=== PATIENT | male | born 1955 | race Caucasian/White ===

== ENCOUNTER 2022-02-15 07:55 | Outpatient (CLI) | payer MEDICARE ==
[2022-02-15 11:38] LABS: African American GFR (CKD) 78.9 (60.0-200.0); Anion Gap 9.8 mmol/L (10.00-18.00); Blood Urea Nitrogen 27.1 mg/dL (9.0-27.0); Carbon Dioxide 28.1 mmol/L (20.0-27.5); Non-African American GFR(CKD) 68.1 (60.0-200.0); Potassium 5.2 mmol/L (3.5-5.5)
[2022-02-15 12:25] LABS: HCT 55.3 % (39.6-50.0); HGB 17.8 g/dL (13.0-17.0); MCH 28.1 pg (27.0-32.0); MCHC 32.2 g/dL (32.0-37.0); MCV 87.2 fL (80.0-97.0); Mean Platelet Volume 10.8 fL (9.5-12.2); NRBC Per 100 WBC 0 /100 WBCS (0.0-0.0); Platelet Count 296 X 10*3/uL (140-440); RBC 6.34 X 10*6/uL (4.40-5.60); RDW 16.9 % (11.5-14.5); WBC 10.34 X 10*3/uL (4.50-10.00)
== END 2022-02-15 08:10 | disposition home or self-care (01) ==
LOC: LABPAT 07:55
PROVIDERS: ATTEND Internal Medicine Clinical Cardiac Electrophysiology
DX: Z01.812 Encounter for preprocedural laboratory examination (principal); I42.0 Dilated cardiomyopathy; I48.19 Other persistent atrial fibrillation
CPT/HCPCS: 80051; 82565; 84520; 85027

== ENCOUNTER 2022-02-15 08:14 | Day surgery (SDC) | payer MEDICARE ==
[~2022-02-15 08:14] MED LIST: LACTATED RINGERS 1,000 ML IV SCH; SODIUM CHLORIDE 0.9% 1,000 ML IV SCH
[2022-02-15 08:58] VITALS: RESP 16; TEMP 98.7
[2022-02-15 09:17] LABS: African American GFR (CKD) >90 (>60 ml/min/1.73 sqM); Anion Gap 12 mmol/L; Blood Urea Nitrogen 28 mg/dL (9-20); Carbon Dioxide 24 mmol/L (22-30); Chloride 103 mmol/L (98-107); Glucose 117 mg/dL (74-99); Non-African American GFR(CKD) 89 (>60 ml/min/1.73 sqM); Potassium 4.7 mmol/L (3.5-5.1); Sodium 139 mmol/L (137-145)
[2022-02-15] MEDS ORDERED: LIDOCAINE 2% INJ 20 MG/ML (2 ML VIAL) ONE (09:47)
[2022-02-15] MEDS ORDERED: PROPOFOL 10 MG/ML 20 ML VIAL IV ONE (09:47)
--- NOTE | 2022-02-15 10:20 | P.EPPROC ---
- EP Procedure Note Electrophysiology Procedure Note: Diagnosis Persistent atrial fibrillation with RVR symptoms of shortness of breath Cardio myopathy Procedure Electrical cardioversion Details Successful electrical cardioversion at 200 J in the AP configuration Distorts sinus rhythm successfully heart rate 70-80 beats a minute Follow-up 12-lead EKG shows Plan Continue losartan 100 mg daily Continue ELIQUIS 5 g twice daily Continue Aldactone Follow-up with Dr. Bliss/Orin Mcclellan in 3-4 weeks
[2022-02-15 19:30] VITALS: BP 124/61; PULSE 87
== END 2022-02-15 11:14 | disposition home or self-care (01) ==
LOC: CATHCVL 08:14
PROVIDERS: ATTEND Internal Medicine Clinical Cardiac Electrophysiology
DX: I48.19 Other persistent atrial fibrillation (principal); I42.9 Cardiomyopathy, unspecified
CPT/HCPCS: 92960; 80048; J2704; J2001

== ENCOUNTER 2022-05-12 08:00 | Day surgery (SDC) | payer MEDICARE ==
[2022-05-12] MEDS: SODIUM CHLORIDE 0.9% 1,000 ML IV SCH (08:35)
[2022-05-12] MEDS ORDERED: HEPARIN SODIUM,PORCINE 10,000 UNIT/ML 1 ML VIAL ONE (09:52)
[2022-05-12] MEDS ORDERED: MIDAZOLAM 2 MG/2 ML VIAL ONE (09:52)
[2022-05-12] MEDS ORDERED: fentaNYL (PF) 50 MCG/ML 2 ML AMP ONE (09:52)
[2022-05-12] MEDS ORDERED: PROPOFOL 10 MG/ML 20 ML VIAL IV ONE (09:52)
[2022-05-12] MEDS ORDERED: PHENYLEPHRINE-0.9% NACL SYG 1,000 MCG/10 ML SYRINGE ONE (09:52)
[2022-05-12] MEDS ORDERED: LIDOCAINE 2% INJ 20 MG/ML (2 ML VIAL) ONE (09:52)
[2022-05-12] MEDS ORDERED: SUCCINYLCHOLINE CHLORIDE 200 MG/10 ML VIAL IV ONE (09:52)
[2022-05-12] MEDS ORDERED: HEPARIN SOD,PORK IN 0.45% NACL 25,000 UNIT in 0.45% NACL 1 250ML.BAG IV ONE (10:30)
[2022-05-12] MEDS ORDERED: LIDOCAINE 1% INJ 10MG/ML (30 ML VIAL-PF) SQ ONE (10:46)
[2022-05-12] MEDS ORDERED: IOPAMIDOL-370 100ML BTL INJ ONE (12:38)
[2022-05-12] MEDS ORDERED: ACETAMINOPHEN TAB 325 MG TAB PO PRN (14:11)
--- NOTE | 2022-05-12 14:27 | P.HPCAR ---
History of Present Illness This is Dr. Bliss dictating an H/P on this patient The patient was interviewed and examined IMPRESSION / ASSESSMENT: Persistent atrial fibrillation Reduced LV systolic function secondary to atrial fibrillation, left ventricular ejection fraction 4745% History of atrial flutter Hypertension PLAN: Proceed with A. fib ablation Continue antihypertensive therapy Continue anticoagulation Reassess LV function in 6-8 weeks after ablation HPI Patient complaining of shortness of breath and heart failure symptoms while in atrial fibrillation. When he was cardioverted to sinus rhythm he felt a lot better with improved energy level He is now back in atrial fibrillation He has a history of hypertension and is to start her on amlodipine He denies any orthopnea PND chest discomfort dizziness presyncope ROS: No fever chills or rigors, no cough, phlegm or expectoration, no nausea, vomiting or diarrhea, no hematuria, dysuria, no musculoskeletal complaints, no strokes or seizures, no skin lesions. EXAMINATION: Pulse rate in the 60s and 70s afebrile Blood pressure 100 and programming was 62 mmHg Breath sounds are clear no rhonchi no crackles No JVD Heart sounds are irregular no murmurs No lower extremity edema REVIEW OF LABS, ECG & MEDICAL DATA TSH normal at 0.9 Medication list includes aspirin ELIQUIS losartan and spironolactone and amlodipine Physical Exam Vitals: Vital Signs Temp Pulse Resp BP Pulse Ox 05/12/22 13:57 69 16 112/62 93 L 05/12/22 13:42 68 16 110/60 93 L 05/12/22 13:27 67 16 113/60 95 05/12/22 13:12 97.1 F L 62 16 119/58 95 05/12/22 08:30 97.4 F L 82 16 127/75 94 L Intake and Output 05/11/22 05/12/22 05/12/22 22:59 06:59 14:59 Intake Total 728 Balance 728 Intake: IV 728 Other: Weight 109.9 kg Past Medical History Past Medical History: GERD/Reflux, Hypertension Additional Past Medical History / Comment(s): cardiac hx per Dr Bliss, seasonal allergies. Pt is poor historian and cannot hear well on phone interview. pt states he has been told he has mild emphysema. pt states he was recently put on antibiotics and steroids. History of Any Multi-Drug Resistant Organisms: None Reported Past Surgical History: No Surgical Hx Reported Past Anesthesia/Blood Transfusion Reactions: No Reported Reaction Smoking Status: Former smoker - Past Family History Father Additional Family Medical History / Comment(s): enlarged heart Mother Additional Family Medical History / Comment(s): skipped heart beat Physical Examination Vital Signs Temp Pulse Resp BP Pulse Ox 05/12/22 13:57 69 16 112/62 93 L 05/12/22 13:42 68 16 110/60 93 L 05/12/22 13:27 67 16 113/60 95 05/12/22 13:12 97.1 F L 62 16 119/58 95 05/12/22 08:30 97.4 F L 82 16 127/75 94 L Intake and Output 05/11/22 05/12/22 05/12/22 22:59 06:59 14:59 Intake Total 728 Balance 728 Intake: IV 728 Other: Weight 109.9 kg Results Current Medications Generic Name Dose Route Start Last Admin Trade Name Freq PRN Reason Stop Dose Admin Acetaminophen 650 mg 05/12/22 14:11 Acetaminophen Tab 325 Mg Tab PO Q6HR PRN Mild Pain (Scale 1 to 3) Amlodipine Besylate 2.5 mg 05/13/22 09:00 Amlodipine 2.5 Mg Tab PO DAILY JACQUES Apixaban 5 mg 05/12/22 21:00 Apixaban 5 Mg Tab PO BID [facility] Protocol Aspirin 81 mg 05/13/22 09:00 Aspirin 81 Mg PO DAILY JACQUES Sodium Chloride 1,000 mls @ 20 mls/hr 05/12/22 05:54 05/12/22 08:35 Saline 0.9% IV 06/11/22 05:55 700 mls .Q24H JACQUES Administration Acetaminophen 1,000 mg/ IV 100 mls @ 400 mls/hr 05/12/22 15:00 Solution IVPB 05/12/22 15:14 ONCE ONE Losartan Potassium 100 mg 05/13/22 09:00 Losartan 50 Mg Tab PO DAILY JACQUES Pantoprazole Sodium 40 mg 05/13/22 07:30 Pantoprazole 40 Mg Tablet PO AC-BRKFST JACQUES Sodium Chloride 12 ml 05/12/22 14:11 Sodium Chloride 0.9% Flush 10 Ml Syringe IV Q12HR PRN Line Flush Spironolactone 25 mg 05/12/22 21:00 Spironolactone 25 Mg Tab PO HS JACQUES Intake and Output 05/11/22 05/12/22 05/12/22 22:59 06:59 14:59 Intake Total 728 Balance 728 Intake: IV 728 Other: Weight 109.9 kg Patient Weight 05/13/22 06:59 Weight 109.9 kg
--- NOTE | 2022-05-12 14:33 | P.EPPROC ---
- EP Procedure Note Electrophysiology Procedure Note: PROCEDURE A. fib ablation/PVI plus linear ablation of the left atrial roof DIAGNOSIS Persistent Atrial fibrillation, symptomatic, refractory to therapy Associated with cardiomyopathy RESULT No left atrial appendage mass seen on intracardiac echo Successful A. fib ablation/pulmonary vein isolation of all veins using cryo- ablation Complete entrance block in all 4 veins confirmed No evidence for phrenic nerve injury Linear ablation along the left atrial roof Isolation of the marie both on the left side and on the right side Esophageal deflection YES / NO Electrical cardioversion with a synchronized shock across the chest YES / NO PROCEDURE DETAILS Patient was brought to the EP lab in a fasting state after obtaining written informed consent. Procedure performed under general anesthesia Esophagus was intubated. Esophageal temperature monitoring with circa catheter. Esophageal deflection performed with an endoscope to avoid hypothermia of the esophagus. Esophagus was deflected away from the balloon at least half centimeters to avoid thermal injury After initial muscle relaxant use, muscle relaxants were not given thereafter in order to assess phrenic nerve during procedure. Patient prepped and draped as per protocol Cryo ablation-set up with standard preparation of the cryoablation tools done. Femoral Venous access obtained on the right and left groins and sheaths placed Diagnostic catheters for the high right atrium, phrenic nerve stimulation and pacing, His bundle, coronary sinus placed Intracardiac echo catheter placed. Long sheath placed in the right atrium Left and right transseptal catheterization performed under intracardiac echo guidance. Intravenous heparin with aCT above 300 Later, catheter positioning and balloon positioning in the left atrium and pulmonary veins, under intracardiac echo guidance Diagnostic EP study with coronary sinus pacing and recording Baseline measurements: QRS 80 ms, QT 373 ms AH interval 125 ms, HV interval 43 ms Transseptal catheterization performed RA pressure 13/9/11 LA pressure 23/7/40 Transseptal catheterization performed with standard sheath. The cryoablation sheath was then placed with an over the wire exchange without any acute complications. The cryoablation balloon was placed in the office of each pulmonary vein and all 4 pulmonary veins were isolated. IV dye was injected to confirm occlusion. Goal: achieve complete occlusion of the pulmonary vein, achieve -30 degrees C at 30 seconds and achieve -40 degrees C at 60 seconds and a time to effect of less than 60 seconds. If not, the balloon was repositioned to obtain this result After completion of Cryoblation with durations from 180-240 seconds, entrance block was confirmed with the Attain circular catheter in a roving fashion around the antrum of the pulmonary veins Phrenic nerve pacing was performed from the SVC, right innominate vein area and diaphragm voltage was monitored. Diaphragmatic contractions were also monitored manually for strength of contraction. Phrenic nerve stimulation was performed from within the RS PV, using the achieve catheter. Both distance as well as thresholds were measured within the RS PV This site was tagged fluoroscopically and the Balloon was positioned at least 0.5-1 cm away from this site to minimize phrenic nerve injury risk At the end of the procedure the Achieve catheter was once again used to check for entrance block Phrenic nerve stimulation was performed to confirm diaphragmatic stimulation the end of the procedure Cine fluoroscopy was performed at the very end of the procedure to confirm movement of both diaphragms with inspiration and expiration Extended procedure duration on account of a very difficult right inferior pulmonary vein isolation The right inferior pulmonary vein had an unusual anatomy and it took multiple attempts to get coag 0 position and complete vein occlusion for complete isolation Multiple attempts were made both the AP position and [place]ICA position Finally the hockey stick approach was successful when the achieve catheter was placed in the lower tributary of the right inferior pulmonary vein Linear ablation was performed in the left atrial roof from the left superior to the right superior pulmonary veins Continue was cryoablation lesions applied starting from the left side as well as from the right side for complete isolation There was a wide marie between the left superior and left inferior pulmonary veins which was separately ablated with a 2 minute cryoablation Marie on the right side between the right superior and right inferior pulmonary veins also separately ablated with a 3 minute lesion Phrenic nerve mapping performed within the right superior pulmonary vein and dry balloon maintained at least 1 cm away from the site to minimize phrenic nerve paresis At the end of the procedure the patient was extubated Venous sheaths were removed and hemostasis assured with a closure device PROCEDURES PERFORMED Diagnostic EP study CS pacing and recording Left and right transseptal catheterization Catheter the mapping of the tachycardia Intracardiac echocardiography Pulmonary vein isolation with transseptal and comprehensive EPS, [id number] Linear ablation in the left atrium along the left and right marie Left atrial roof line, +[id number] Electrical cardioversion with a synchronized shock across the chest [id number] Extended procedure duration
--- NOTE | 2022-05-12 14:40 | P.PRLE ---
RE: Blaze Douglas Dear Fani Thakur underwent in A. fib ablation with pulmonary vein isolation and linear ablation in the left atrial roof and the marie and between the pulmonary veins He underwent successful electrical cardioversion thereafter Hopefully this results in maintenance of sinus rhythm and allows for improvement of his LV function He will continue antihypertensive therapy along with anticoagulation with ELIQUIS Thank you for entrusting me with the care of the patient Warm regards Sincerely Jonah Bliss
[2022-05-12] MEDS ORDERED: ACETAMINOPHEN IV (For NPO) 1,000 MG in EMPTY BAG 1 BAG IVPB ONE (15:00)
[2022-05-12] MEDS: APIXABAN 5 MG TAB PO SCH (20:11)
[2022-05-12] MEDS ORDERED: SPIRONOLACTONE 25 MG TAB PO SCH (21:00)
[2022-05-13] MEDS: SODIUM CHLORIDE 0.9% 1,000 ML IV SCH (05:49)
[2022-05-13] MEDS ORDERED: PANTOPRAZOLE 40 MG TABLET PO SCH (07:30)
[2022-05-13 08:16] VITALS: BP 120/67; PULSE 67; RESP 16; TEMP 97.8
[2022-05-13] MEDS ORDERED: ASPIRIN 81 MG PO SCH (09:00)
[2022-05-13] MEDS ORDERED: LOSARTAN 50 MG TAB PO SCH (09:00)
[2022-05-13] MEDS ORDERED: amLODIPine 2.5 MG TAB PO SCH (09:00)
[2022-05-13] MEDS: APIXABAN 5 MG TAB PO SCH (09:13)
== END 2022-05-13 12:25 | disposition home or self-care (01) ==
LOC: CATHEP 08:00 → 6NMEDSUR 12:43 → CATHEP 05-13 12:25
PROVIDERS: ATTEND Internal Medicine Clinical Cardiac Electrophysiology
DX: I48.19 Other persistent atrial fibrillation (principal); I42.9 Cardiomyopathy, unspecified; I48.3 Typical atrial flutter; I10 Essential (primary) hypertension; Z79.01 Long term (current) use of anticoagulants; Z79.811 Long term (current) use of aromatase inhibitors; K21.9 Gastro-esophageal reflux disease without esophagitis; J43.9 Emphysema, unspecified; Z87.891 Personal history of nicotine dependence; Z82.49 Family history of ischemic heart disease and other diseases of the circulatory system; Z79.1 Long term (current) use of non-steroidal anti-inflammatories (NSAID); Z79.82 Long term (current) use of aspirin; Z79.891 Long term (current) use of opiate analgesic
CPT/HCPCS: 93656; 93657; 92960; 84443; C1894 ×2; C1769 ×4; C1760; C1730; C1759; C1893; C1733; C1766; J2250; J0330; J1644 ×2; J2001 ×2; J3010; J0131; J2370; J2704; Q9967

== ENCOUNTER → 2023-06-29 | Outpatient (CLI) | payer MEDICARE ==
[2023-06-29 10:54] LABS: Basophils # (A) 0.05 X 10*3/uL (0.00-0.10); Basophils % (A) 0.7 %; Eosinophils # (A) 0.22 X 10*3/uL (0.04-0.35); Eosinophils % (A) 2.9 %; HCT 48.9 % (39.6-50.0); Lymphocytes # (A) 1.39 X 10*3/uL (0.90-5.00); Lymphocytes % (A) 18.3 %; MCHC 32.7 g/dL (32.0-37.0); MCV 85.6 FL (80.0-97.0); Mean Platelet Volume 10.1 FL (9.5-12.2); Monocytes # (A) 0.81 X 10*3/uL (0.20-1.00); Monocytes % (A) 10.7 %; NRBC Per 100 WBC 0 X 10*3/uL (0.00-0.01); Neutrophils # (A) 5.04 X 10*3/uL (1.80-7.70); Neutrophils % (A) 66.5 %; Platelet Count 328 X 10*3/uL (140-440); RBC 5.71 X 10*6/uL (4.40-5.60); RDW 14.3 % (11.5-14.5); WBC 7.58 X 10*3/uL (4.50-10.00)
[2023-06-29 16:10] LABS: ALT 36 U/L (10-49); AST 22 U/L (14-35); Alkaline Phosphatase 87 U/L (41-126); BUN/Creat Ratio 16.45 Ratio (12.00-20.00); Blood Urea Nitrogen 18.1 mg/dL (9.0-27.0); Calcium 9.4 mg/dL (8.7-10.3); Chloride 104 mmol/L (96-109); Chol/HDL Ratio 4.34 Ratio; Globulin 2.5 g/dL (1.6-3.3); Glucose 109 mg/dL (70-110); LDL Cholesterol,Calculated 107.9 mg/dL (0.0-131.0); Magnesium 2.3 mg/dL (1.5-2.4); Potassium 4.7 mmol/L (3.5-5.5); Sodium 141 mmol/L (135-145); Total Bilirubin 0.3 mg/dL (0.3-1.2); Total Protein 6.5 g/dL (6.2-8.2)
== END | disposition home or self-care (01) ==
LOC: LABWHC1 08:08
PROVIDERS: ATTEND Nurse Practitioner Adult Health
DX: I48.19 Other persistent atrial fibrillation (principal); I42.0 Dilated cardiomyopathy; E78.5 Hyperlipidemia, unspecified
CPT/HCPCS: 36415; 80053; 80061; 83735; 84443; 85025

== ENCOUNTER → 2024-01-29 | Outpatient (CLI) | payer MEDICARE ==
[2024-01-29 15:45] LABS: Blood Urea Nitrogen 17.4 mg/dL (9.0-27.0); Carbon Dioxide 22.7 mmol/L (21.6-31.8); Chloride 108 mmol/L (96-109); Potassium 4.7 mmol/L (3.5-5.5); Sodium 141 mmol/L (135-145)
[2024-01-29 16:01] LABS: HCT 38.4 % (39.6-50.0); HGB 12.3 g/dL (13.0-17.0); MCH 28.7 pg (27.0-32.0); MCV 89.7 FL (80.0-97.0); NRBC Per 100 WBC 0 X 10*3/uL (0.00-0.01); Platelet Count 355 X 10*3/uL (140-440); RBC 4.28 X 10*6/uL (4.40-5.60); RDW 15.7 % (11.5-14.5); WBC 6.58 X 10*3/uL (4.50-10.00)
== END | disposition home or self-care (01) ==
LOC: LABPAT 10:46
PROVIDERS: ATTEND Internal Medicine Clinical Cardiac Electrophysiology
DX: Z01.812 Encounter for preprocedural laboratory examination (principal); I47.9 Paroxysmal tachycardia, unspecified
CPT/HCPCS: 80051; 82565; 84520; 85027

== ENCOUNTER 2024-02-01 06:05 | Day surgery (SDC) | payer MEDICARE ==
[2024-02-01] MEDS: SODIUM CHLORIDE 0.9% 1,000 ML IV SCH (06:51)
[2024-02-01] MEDS: IV FLUID CONTINUATION 1,000 ML IV ONE (07:12)
[2024-02-01] MEDS ORDERED: PHENYLEPHRINE-0.9% NACL SYG 1,000 MCG/10 ML SYRINGE ONE (07:57)
[2024-02-01] MEDS ORDERED: NEOSTIGMINE 1 MG/ML 10 ML VIAL ONE (07:57)
[2024-02-01] MEDS ORDERED: ETOMIDATE 2 MG/ML 10 ML VIAL ONE (07:57)
[2024-02-01] MEDS ORDERED: GLYCOPYRROLATE 0.2 MG/ML 2 ML VIAL ONE (07:57)
[2024-02-01] MEDS ORDERED: LIDOCAINE 1% INJ 10MG/ML (20 ML MDV) ONE (07:57)
[2024-02-01] MEDS ORDERED: ROCURONIUM 10 MG/ML (5 ML VIAL) IV ONE (07:57)
[2024-02-01] MEDS ORDERED: fentaNYL (PF) 50 MCG/ML 2 ML AMP ONE (07:57)
[2024-02-01] MEDS ORDERED: HEPARIN SODIUM,PORCINE 10,000 UNIT/ML 1 ML VIAL ONE (07:57)
[2024-02-01] MEDS ORDERED: PHENYLEPHRINE 10 MG/ML VIAL ONE (07:57)
[2024-02-01] MEDS ORDERED: SUCCINYLCHOLINE CHLORIDE 200 MG/10 ML VIAL IV ONE (07:57)
[2024-02-01] MEDS ORDERED: PROPOFOL 10 MG/ML 20 ML VIAL IV ONE (07:57)
[2024-02-01] MEDS ORDERED: HEPARIN SODIUM,PORCINE 5,000 UNIT/ML 1 ML VIAL ONE (07:57)
[2024-02-01 08:43] LABS: ALT 69 U/L (4-49); AST 40 U/L (17-59); African American GFR (CKD) 85 (>60 ml/min/1.73 sqM); Albumin 3.9 g/dL (3.5-5.0); Alkaline Phosphatase 78 U/L (38-126); Anion Gap 4 mmol/L; Blood Urea Nitrogen 17 mg/dL (9-20); Calcium 9.3 mg/dL (8.4-10.2); Carbon Dioxide 27 mmol/L (22-30); Chloride 110 mmol/L (98-107); Glucose 107 mg/dL (74-99); Non-African American GFR(CKD) 74 (>60 ml/min/1.73 sqM); Potassium 4.8 mmol/L (3.5-5.1); Sodium 141 mmol/L (137-145); Total Bilirubin 0.8 mg/dL (0.2-1.3)
[2024-02-01] MEDS: LIDOCAINE 1% INJ 10MG/ML (20 ML MDV) SQ ONE (08:43)
[2024-02-01] MEDS: HEPARIN SOD,PORK IN 0.45% NACL 25,000 UNIT in 0.45% NACL 1 250ML.BAG IV ONE (09:00)
[2024-02-01] MEDS: HEPARIN SODIUM (1,000 UNIT/ML) 1,000 UNIT in SODIUM CHLORIDE 0.9% 1,000 ML IRRIGATION ONE (09:13)
[2024-02-01] MEDS ORDERED: MELOXICAM 7.5 MG TAB PO PRN (11:36)
[2024-02-01] MEDS ORDERED: ACETAMINOPHEN TAB 325 MG TAB PO PRN (11:40)
--- NOTE | 2024-02-01 11:50 | P.HPCAR ---
History of Present Illness This is Dr. Bliss dictating an H/P on this patient The patient was interviewed and examined IMPRESSION / ASSESSMENT: Post A-fib ablation atrial tachycardia with RVR and symptomatic with shortness of breath History of persistent atrial fibrillation status post PVI left atrial septal ablation and left atrial roof ablation in 2022 History of dilated cardiomyopathy with normalization of LV function once sinus rhythm was restored Hypertension Normal TSH PLAN: Mapping of the left and right atria and ablation of the atrial tachycardia Continue anticoagulation HPI Patient has been very symptomatic with RVR secondary to atrial tachycardia. This is developed after almost 1 and half years following his A-fib ablation His A-fib ablation involved pulmonary vein isolation left atrial septal ablation left atrial roof ablation. The twelve-lead EKG shows upright atrial activity in the inferior leads as well as upright F waves in V1 consistent with atrial tachycardia originating from the superior part of most likely the left atrium, likely roof reentry He is short of breath. No chest discomfort no loss of consciousness Denies any fever chills expectoration ROS: No fever chills or rigors, no cough, phlegm or expectoration, no nausea, vomiting or diarrhea, no hematuria, dysuria, no musculoskeletal complaints, no strokes or seizures, no skin lesions. EXAMINATION: Blood pressure 129/72 mmHg pulse rate 90-100 beats a minute afebrile Heart sounds S1-S2 normal, irregular Lungs are clear no rhonchi no crackles No JVD No lower extremity edema REVIEW OF LABS, ECG & MEDICAL DATA Sodium 141 potassium 4.8 chloride 110 bicarb 27 Creatinine 1.0 AST and ALT are normal TSH 0.9 Physical Exam Vitals: Vital Signs Temp Pulse Resp BP Pulse Ox 02/01/24 06:57 97.0 F L 92 16 129/72 97 Intake and Output 01/31/24 02/01/24 02/01/24 22:59 06:59 14:59 Intake Total 911 Output Total 150 Balance 761 Intake: IV 911 Output: Urine 150 Other: Weight 109.1 kg Past Medical History Past Medical History: Atrial Fibrillation, GERD/Reflux, Hyperlipidemia, Hypertension Additional Past Medical History / Comment(s): cardiac hx per Dr Bliss, seasonal allergies. Pt is poor historian and cannot hear well on phone interview. pt states he has been told he has mild emphysema. pt states he was recently put on antibiotics and steroids. History of Any Multi-Drug Resistant Organisms: None Reported Past Surgical History: Heart Catheterization, Hernia Repair Past Anesthesia/Blood Transfusion Reactions: No Reported Reaction Smoking Status: Former smoker - Past Family History Father Additional Family Medical History / Comment(s): enlarged heart Mother Additional Family Medical History / Comment(s): skipped heart beat Physical Examination Vital Signs Temp Pulse Resp BP Pulse Ox 02/01/24 06:57 97.0 F L 92 16 129/72 97 Intake and Output 01/31/24 02/01/24 02/01/24 22:59 06:59 14:59 Intake Total 911 Output Total 150 Balance 761 Intake: IV 911 Output: Urine 150 Other: Weight 109.1 kg Results 02/01/24 07:01 Cardiac Enzymes 02/01/24 Range/Units 07:01 AST 40 (17-59) U/L Comprehensive Metabolic Panel 02/01/24 Range/Units 07:01 Sodium 141 (137-145) mmol/L Potassium 4.8 (3.5-5.1) mmol/L Chloride 110 H (98-107) mmol/L Carbon Dioxide 27 (22-30) mmol/L BUN 17 (9-20) mg/dL Creatinine 1.04 (0.66-1.25) mg/dL Glucose 107 H (74-99) mg/dL Calcium 9.3 (8.4-10.2) mg/dL AST 40 (17-59) U/L ALT 69 H (4-49) U/L Alkaline Phosphatase 78 (38-126) U/L Total Protein 7.0 (6.3-8.2) g/dL Albumin 3.9 (3.5-5.0) g/dL Current Medications Generic Name Dose Route Start Last Admin Trade Name Freq PRN Reason Stop Dose Admin Acetaminophen 650 mg 02/01/24 11:40 Acetaminophen Tab 325 Mg Tab PO Q6HR PRN Mild Pain (Scale 1 to 3) Amlodipine Besylate 10 mg 02/02/24 09:00 Amlodipine 10 Mg Tab PO DAILY [facility] Apixaban 5 mg 02/01/24 21:00 Apixaban 5 Mg Tab PO BID JACQUES Protocol Acetaminophen 1,000 mg/ IV 100 mls @ 400 mls/hr 02/01/24 12:00 Solution IVPB 02/01/24 12:14 ONCE ONE Losartan Potassium 100 mg 02/02/24 09:00 Losartan 50 Mg Tab PO DAILY [facility] Meloxicam 15 mg 02/01/24 11:36 Meloxicam 7.5 Mg Tab PO DAILY PRN Pain Non-Formulary Medication 75 mg 02/02/24 09:00 Metoprolol(Unk) PO DAILY [facility] Pantoprazole Sodium 40 mg 02/02/24 09:00 Pantoprazole 40 Mg Tablet PO DAILY [facility] Sodium Chloride 12 ml 02/01/24 11:40 Sodium Chloride 0.9% Flush 10 Ml Syringe IV Q12HR PRN Line Flush Intake and Output 01/31/24 02/01/24 02/01/24 22:59 06:59 14:59 Intake Total 911 Output Total 150 Balance 761 Intake: IV 911 Output: Urine 150 Other: Weight 109.1 kg Patient Weight 02/02/24 06:59 Weight 109.1 kg 02/01/24 07:01
--- NOTE | 2024-02-01 12:05 | P.EPPROC ---
- EP Procedure Note Electrophysiology Procedure Note: Diagnosis Atrial tachycardia with RVR, symptomatic Past history of A-fib ablation with PVI left atrial septal ablation left atrial roof ablation in April 2022 Tachycardia mediated cardiomyopathy Final diagnosis Counterclockwise/typical atrial flutter with inferior to superior activation of the left atrium both anterior and posterior garcia Twelve-lead EKG however shows upright F waves in the inferior leads, likely due to right atrial free wall contributing the predominant superior to inferior direction of activation, rather than the left atrium Details Patient is brought to the EP lab in a fasting state. Written informed consent was obtained prior to the procedure procedure performed under general anesthesia. Venous sheaths placed in the right and left femoral veins and the right atrium, coronary sinus, His bundle area Intracardiac echo catheter placed, Penta ray catheter and mapping and ablation cath placed Intracardiac echo revealed preserved LV systolic function, no left atrial appendage thrombus, large left atrial size Patient was seen and atrial tachycardia with a cycle length 240 ms, concentric activation in the coronary sinus poles RA pressure 10/6/8 mmHg LA pressures 22/4/12 mmHg After confirming absence of any left atrial appendage thrombus and absence of any pericardial effusion, left and right transseptal catheterization was performed under fluoroscopic and ultrasound guidance. A deflectable sheath was placed in the left atrium and a Penta ray catheter was placed. Activation and scar mapping was performed of the left atrium The pulmonary veins at an antral level and the left atrial septum were completely isolated. The left atrial roof was completely isolated anteriorly without any. The activation map was consistent with a right atrial tachycardia Therefore heparin was stopped and the catheters were then withdrawn into the right atrium. Mapping of the Penta ray catheter confirmed counterclockwise/typical atrial flutter with activation of the left atrium from the coronary sinus with inferior to superior activation of the left atrium even though the EKGs showed upright F waves in the inferior leads Entrainment mapping was then performed in the cavotricuspid isthmus and concealed entrainment was noted Intracardiac echo was used to map the right atrial isthmus. RF ablation was performed from the cavotricuspid isthmus to the IVC with termination of the tachycardia to sinus rhythm with a prolonged TX interval Following that complete line of block was made and then interrogated with differential pacing with confirmed bidirectional block Sinus cycle length 1085 ms, TX interval 230 ms, QRS 95 ms and QT interval 463 ms AH 127 ms and HV interval 37 ms All sheaths were removed and closure devices were applied to the venous punctures Patient was extubated Patient of the procedure well without any acute complications This is a long procedure since it involved mapping both activation mapping and scar mapping of the left atrium and the pulmonary veins first, confirmation of absence of left atrial tachycardia since the EKG morphology was consistent with a left atrial tachycardia from the roof of the LA. However there was no gap in the left atrial roof Right atrial mapping was performed both activation mapping as well as entrainment mapping confirmed cavotricuspid isthmus dependency of the tachycardia RF ablation was performed successfully
--- NOTE | 2024-02-01 12:14 | P.PRLE ---
RE: Blaze Douglas Dear Fani Mr. Blaze Douglas underwent mapping for atrial tachycardia. The atrial tachycardia turned out to be typical atrial flutter and he underwent successful ablation with confirmed bidirectional block. We also mapped the left atrium and his pulmonary veins, left atrial septum and left atrial roof were completely isolated and have remained so since ablation. He will continue Eliquis. I will reduce the dose of Toprol to 50 mg p.o. daily since he has a mildly prolonged ME interval My thank you
[2024-02-01] MEDS: ACETAMINOPHEN IV (For NPO) 1,000 MG in EMPTY BAG 1 BAG IVPB ONE (20:18)
[2024-02-01] MEDS: APIXABAN 5 MG TAB PO SCH (20:18)
[2024-02-01] MEDS: PANTOPRAZOLE 40 MG TABLET PO SCH (20:26)
[2024-02-02 05:52] LABS: Basophils % (A) 0 %; Eosinophils # (A) 0.1 k/uL (0-0.7); Eosinophils % (A) 1 %; HGB 12.9 gm/dL (13.0-17.5); Hypochromasia Slight; Lymphocytes # (A) 1.3 k/uL (1.0-4.8); Lymphocytes % (A) 14 %; MCH 28.3 pg (25.0-35.0); MCHC 31.5 g/dL (31.0-37.0); MCV 89.9 fL (80.0-100.0); Mean Platelet Volume 7.5; Monocytes # (A) 0.7 k/uL (0-1.0); Monocytes % (A) 8 %; Neutrophils # (A) 6.6 k/uL (1.3-7.7); Neutrophils % (A) 74 %; Platelet Count 375 k/uL (150-450); RBC 4.56 m/uL (4.30-5.90); RDW 15.1 % (11.5-15.5)
--- NOTE | 2024-02-02 07:56 | P.DS ---
Providers Attending physician: Jonah Bliss Primary care physician: [facility] Course: Patient is doing well. He is sitting comfortably in bed. He feels better he is breathing better according to him No chest pain no dizziness lightheadedness Groins of healed well no hematoma On examination blood pressure is 120/68 mmHg pulse rate in the 70s afebrile Heart sounds S1-S2 normal Breath sounds are reduced bilaterally no rhonchi no crackles Impression Post A-fib atrial tachycardia that turned out to be typical atrial flutter, counterclockwise with upright flutter waves in the inferior leads, most likely as a result of prior cryoablation of the septum from the left side resulting in the right atrial free wall contributing to the predominant/net superior-inferior vector of activation. Prior PVI, septal ablation and roof ablation were intact and quiescent. There was no gap in the roofline which was anterior in location. Pulmonary veins were completely isolated and the septum was quiescent Mildly prolonged IN interval at baseline in sinus rhythm Plan Continue anticoagulation uninterrupted for the next 4 to 6 weeks unless there is an emergency Reduce metoprolol dose to 50 mg p.o. daily, long-acting Discharge home today and follow-up in a week to 10 days Plan - Discharge Summary Discharge Rx Participant: No New Discharge Prescriptions: New RX: Metoprolol Succinate (ER) [Toprol XL] 50 mg PO DAILY #90 tab Discontinued Metoprolol(Unk) 75 mg PO DAILY No Action RX: Meloxicam [Mobic] 15 mg PO DAILY PRN PRN Reason: Pain RX: Apixaban [Eliquis] 5 mg PO BID RX: Omeprazole 40 mg PO DAILY RX: amLODIPine [Norvasc] 10 mg PO DAILY RX: Losartan Potassium 100 mg PO DAILY RX: traMADol HCL 50 mg PO Q6H PRN PRN Reason: Pain Discharge Medication List RX: Apixaban [Eliquis] 5 mg PO BID 02/15/22 [History] RX: Losartan Potassium 100 mg PO DAILY 02/15/22 [History] RX: Meloxicam [Mobic] 15 mg PO DAILY PRN 02/15/22 [History] RX: Omeprazole 40 mg PO DAILY 02/15/22 [History] RX: amLODIPine [Norvasc] 10 mg PO DAILY 05/12/22 [History] RX: traMADol HCL 50 mg PO Q6H PRN 05/12/22 [History] RX: Metoprolol Succinate (ER) [Toprol XL] 50 mg PO DAILY #90 tab 02/01/24 [Rx] Follow up Appointment(s)/Referral(s): Jonah Bliss MD [STAFF PHYSICIAN] - 1 Week Activity/Diet/Wound Care/Special Instructions: Post EP study - Ablation instructions 1. Keep access sites dry for 2 days. 2. No heavy lifting or straining for 2 days. 3. Avoid bending the hips repeatedly for 2 days. 4. You may go up and down stairs slowly Call if the following is noted 1. Bleeding, increasing swelling or pain at the access sites. 2. Increasing chest discomfort, especially upon taking a deep breath. 3. Increasing shortness of breath, at rest or with exertion. 4. Undue cough / phlegm 5. Difficulty or pain while swallowing. 6. Pain or change in color in the extremities. 7. Fever, chills, rigors. 8. Increasing headache or neurologic symptoms. 9. Dizziness, fainting, palpitations Metoprolol succinate dose reduced to 50 mg p.o. daily Continue Eliquis and all other medication
[2024-02-02 08:22] VITALS: BP 129/70; PULSE 69; RESP 18; TEMP 97.8
[2024-02-02] MEDS: amLODIPine 10 MG TAB PO SCH (08:38)
[2024-02-02] MEDS: LOSARTAN 50 MG TAB PO SCH (08:38)
[2024-02-02] MEDS ORDERED: METOPROLOL PO SCH (09:00)
[2024-02-02] MEDS ORDERED: PANTOPRAZOLE 40 MG TABLET PO SCH (09:00)
[2024-02-02] MEDS: METOPROLOL SUCCINATE (ER) 50 MG TAB.ER.24H PO STA (09:47)
== END 2024-02-02 10:24 | disposition home or self-care (01) ==
LOC: CATHEP 06:05 → 6NMEDSUR 11:20 → CATHEP 02-02 10:24
PROVIDERS: ATTEND Internal Medicine Clinical Cardiac Electrophysiology
CPT/HCPCS: 80053; 84443; 85025; 86850; 86900; 86901; 93005; 93462; 93653; 93662

== ENCOUNTER 2024-06-10 13:47 | Inpatient (IN) | payer MEDICARE ==
[2024-06-10 14:06] LABS: ABG Base Excess -0.8 mmol/L; ABG HCO3 25 mmol/L (21-25); ABG Oxygen Saturation 88.9 % (94-97); ABG PCO2 43 mmHg (35-45); ABG PH 7.36 (7.35-7.45); ABG PO2 60 mmHg (83-108); ABG TCO2 26 mmol/L (19-24); Allen Test Performed? Yes
[2024-06-10] MEDS: cefTRIAXone IN SWFI 1,000 MG/10 ML SYRINGE IVP STA ×2 (14:07→14:08)
[2024-06-10 14:20] LABS: Basophils # (A) 0.1 k/uL (0-0.2); Basophils % (A) 1 %; Eosinophils % (A) 0 %; HCT 41.5 % (39.0-53.0); HGB 13.8 gm/dL (13.0-17.5); Lymphocytes # (A) 1.2 k/uL (1.0-4.8); Lymphocytes % (A) 8 %; MCH 29.5 pg (25.0-35.0); MCHC 33.3 g/dL (31.0-37.0); MCV 88.4 fL (80.0-100.0); Mean Platelet Volume 11.6; Monocytes # (A) 0.5 k/uL (0-1.0); Monocytes % (A) 3 %; Neutrophils # (A) 13.1 k/uL (1.3-7.7); Neutrophils % (A) 85 %; Platelet Count 265 k/uL (150-450); Poikilocytosis Slight; RDW 15.4 % (11.5-15.5); WBC 15.3 k/uL (3.8-10.6)
[2024-06-10] MEDS: ALBUTEROL NEBULIZED 2.5 MG/3 ML INHALATION STA (14:23)
[2024-06-10] MEDS: IPRATROPIUM 0.5 MG/2.5 ML NEBU INHALATION STA (14:23)
[2024-06-10] MEDS: AZITHROMYCIN 500 MG in SODIUM CHLORIDE 0.9% 250 ML IVPB STA (14:28)
--- NOTE | 2024-06-10 14:29 | XR ---
EXAMINATION TYPE: XR chest 1V portable DATE OF EXAM: 06/10/2024 2:09 PM COMPARISON: None. CLINICAL INDICATION: Male, 69 years old with history of Short of breath, TECHNIQUE: XR chest 1V portable view(s) obtained. FINDINGS: The heart size is normal. The pulmonary vasculature is normal. There is a large left upper lobe consolidation. Correlate for pneumonia. Some bibasilar infiltrates a re present. Atelectasis and pneumonia could be considered. Follow up exams are recommended. IMPRESSION: 1. Left upper lobe consolidation with air bronchograms. Correlate for pneumonia. 2. Bibasilar infiltrates. Pneumonia and atelectasis to BE considered. 3. Follow up exams are recommended [facility], , 06/10/2024 2:27 PM
[2024-06-10 14:46] LABS: Influenza A Detected (Not Detectd); Influenza B Not Detected (Not Detectd); RSV Not Detected (Not Detectd)
[2024-06-10 15:13] LABS: INR 1.1 (<1.2); Partial Thromboplastin Time 24.3 sec (22.0-30.0); Prothrombin Time 11.7 sec (10.0-12.5)
--- NOTE | 2024-06-10 15:14 | ED ---
General Adult HPI - General Source: patient, EMS, RN notes reviewed, old records reviewed Mode of arrival: EMS Limitations: no limitations <Sabino Solano - Last Filed: 06/10/24 15:34> <Baljinder Subramanian - Last Filed: 06/10/24 16:55> - General Chief complaint: Shortness of Breath Stated complaint: SHAMA Time Seen by Provider: 06/10/24 13:47 - History of Present Illness Initial comments: This is a 69-year-old male who presents to the emergency department for difficulty breathing. According to EMS's report family states that everybody in the house has been sick for the last week but the patient has been getting p rogressively worse with worsening difficulty breathing. Patient was oxygenating in the 60s according to family they put him on CPAP and it did help him but he continues to breathe rapidly. Patient also had a fever. Patient does not give much history because he is very hard to hear and no family is with the patient. (Sabino Solano) - Related Data Home Medications Medication Instructions Recorded Confirmed Losartan Potassium [Cozaar] 100 mg PO DAILY 06/10/24 06/10/24 Meloxicam [Mobic] 15 mg PO DAILY PRN 06/10/24 06/10/24 Metoprolol Succinate (ER) [Toprol 50 mg PO DAILY 06/10/24 06/10/24 Xl] Omeprazole [PriLOSEC] 40 mg PO DAILY 06/10/24 06/10/24 amLODIPine [Norvasc] 10 mg PO DAILY PRN 06/10/24 06/10/24 traMADol HCl [Ultram] 100 mg PO BID PRN 06/10/24 06/10/24 Allergies Allergy/AdvReac Type Severity Reaction Status Date / Time No Known Allergies Allergy Verified 06/10/24 14:08 Review of Systems ROS Other: All systems not noted in ROS Statement are negative. <Sabino Solano - Last Filed: 06/10/24 15:34> ROS Other: All systems not noted in ROS Statement are negative. <Baljinder Subramanian - Last Filed: 06/10/24 16:55> ROS Statement: Those systems with pertinent positive or pertinent negative responses have been documented in the HPI. General Exam Limitations: no limitations <Sabino Solano - Last Filed: 06/10/24 15:34> - General Exam Comments Initial Comments: GENERAL: Patient is well-developed and well-nourished. Patient is nontoxic and well- hydrated and is in moderate distress. ENT: Neck is soft and supple. No significant lymphadenopathy is noted. Oropharynx is clear. Moist mucous membranes. Neck has full range of motion without e liciting any pain. EYES: The sclera were anicteric and conjunctiva were pink and moist. Extraocular movements were intact and pupils were equal round and reactive to light. Eyelids were unremarkable. PULMONARY: Patient has crackles bilaterally CARDIOVASCULAR: There is a regular rate and rhythm without any murmurs gallops or rubs. ABDOMEN: Soft and nontender with normal bowel sounds. SKIN: Skin is clear with no lesions or rashes and otherwise unremarkable. NEUROLOGIC: Patient is alert and oriented x3. Cranial nerves II through XII are grossly intact. Motor and sensory are also intact. Normal speech, volume and content. Symmetrical smile. MUSCULOSKELETAL: Normal extremities with adequate strength and full range of motion. No lower extremity swelling or edema. No calf tenderness. LYMPHATICS: No significant lymphadenopathy is noted PSYCHIATRIC: Normal psychiatric evaluation. (Sabino Solano) Course <TimBaljinder bergman - Last Filed: 06/10/24 16:55> Vital Signs 06/10/24 06/10/24 06/10/24 13:57 13:59 14:24 Temperature 100 F H Pulse Rate 84 82 Respiratory 45 H Rate Blood Pressure 138/94 O2 Sat by Pulse 88 L Oximetry Fraction of 100 Inspired Oxygen (FIO2) 06/10/24 06/10/24 06/10/24 14:32 14:33 14:58 Temperature Pulse Rate 83 81 Respiratory 51 H 51 H 45 H Rate Blood Pressure 143/62 O2 Sat by Pulse 90 L Oximetry Fraction of Inspired Oxygen (FIO2) 06/10/24 06/10/24 06/10/24 14:59 15:53 15:58 Temperature Pulse Rate 82 80 Respiratory 37 H 37 H Rate Blood Pressure 128/102 O2 Sat by Pulse 67 L 68 L Oximetry Fraction of 100 Inspired Oxygen (FIO2) 06/10/24 06/10/24 06/10/24 16:14 16:35 16:52 Temperature Pulse Rate 79 73 Respiratory 28 H 35 H Rate Blood Pressure 102/60 106/56 O2 Sat by Pulse 73 L Oximetry Fraction of 100 Inspired Oxygen (FIO2) - Reevaluation(s) Reevaluation #1: 06/10/24 16:54 I was called to the bedside as the patient's SpO2 readings were decreasing and the patient's postintubation blood gas showed decreased SpO2 versus pr eintubation. I ordered chest x-ray to verify that there was not a pneumothorax developing. The endotracheal tube position looks good there, the patient does have diffuse infiltrates. I did order for cis atracurium and an increase in PEEP followed by blood gas in 15 minutes and also directed to have the engineering consultant paged to discuss these results. (Baljinder Subramanian) Procedures - Intubation Sedative: Versed Mg Given: 5 Paralytic: Succinylcholine Mg Given: 100 Laryngoscope: Pena Size: 4 ET Tube Size: 7.5 ET Tube Uncuffed: No Tube Secured Location: teeth Tube Placement Confirmation: visualized tube passing through cords, equal breath sounds bilaterally, no breath sounds over epigastrium, confirmation by capnometry Patient Tolerated Procedure: well Intubation Complications: none <Sabino Solano - Last Filed: 06/10/24 15:34> Medical Decision Making - Lab Data Result diagrams: 06/10/24 14:01 <Sabino Solano - Last Filed: 06/10/24 15:34> - Lab Data Result diagrams: 06/10/24 14:01 06/10/24 14:55 <Baljinder Subramanian - Last Filed: 06/10/24 16:55> - Medical Decision Making EKG is interpreted by myself is of poor quality EKG EKG appears to show atrial fibrillation at a rate of 87 bpm QRS is 79 QT interval 309 QTc is 353. Patient's EKG does not show obvious ST segment elevation however again it is a very poor EKG Was pt. sent in by a medical professional or institution (, PA, DIRECT MARKETING ANALYST, urgent care, hospital, or care home...) When possible be specific @ -No Did you speak to anyone other than the patient for history (EMS, parent, family, police, friend...)? What history was obtained from this source @ -No Did you review nursing and triage notes (agree or disagree)? Why? @ -I reviewed and agree with nursing and triage notes Were old charts reviewed (outside hosp., previous admission, EMS record, old EK G, old radiological studies, urgent care reports/EKG's, care home records)? Report findings @ -No old charts were reviewed Differential Diagnosis? @ -Differential Dyspnea: Coronary syndrome, arrhythmia, tamponade, asthma, COPD, pulmonary embolism, pneumonia, pneumothorax, pulmonary effusion, anaphylaxis, diabetic ketoacidosis, flailed chest, pulmonary contusion, diaphragmatic rupture, anemia, neuromuscular, this is not meant to be an all-inclusive list. EKG interpreted by me (3pts min.). @ -As above X-rays interpreted by me (1pt min.). @ -Chest x-ray shows multilobar pneumonia CT interpreted by me (1pt min.). @ -None done U/S interpreted by me (1pt. min.). @ -None done What testing was considered but not performed or refused? (CT, X-rays, U/S, labs)? Why? @ -None What meds were considered but not given or refused? Why? @ -None Did you discuss the management of the patient with other professionals (professionals i.e. , PA, DIRECT MARKETING ANALYST, lab, RT, psych nurse, social scientist, shot blaster, teacher, ship officer, housing case manager)? Give summary @ -I spoke with sound physicians he agreed to admit the patient. Spoke with Dr. Stovall he will be on consult for this patient Was smoking cessation discussed for >3mins.? @ -No Was critical care preformed (if so, how long)? @ -35 minutes Were there social determinants of health that impacted care today? How? (Homelessness, low income, unemployed, alcoholism, drug addiction, transportation, low edu. Level, literacy, decrease access to med. care, detention, rehab)? @ -No Was there de-escalation of care discussed even if they declined (Discuss DNR or withdrawal of care, Hospice)? DNR status @ -No What co-morbidities impacted this encounter? (DM, HTN, Smoking, COPD, CAD, Cancer, CVA, ARF, Chemo, Hep., AIDS, mental health diagnosis, sleep apnea, mor bid obesity)? @ -None Was patient admitted / discharged? Hospital course, mention meds given and rou te, prescriptions, significant lab abnormalities, going to OR and other pertinent info. @ -Patient came in on CPAP we switched him to BiPAP he continued to be tachypneic and did not get an oxygenation above 90 on 100% so patient was intubated by myself. I used Versed and is now calling. Patient has pneumonia and started him on Rocephin and Zithromax. Patient also has influenza A. Drug Therapy requiring intensive monitoring for toxicity (Heparin, Nitro, Insulin, Cardizem)? @ -No Were any procedures done? @ -No Diagnosis/symptom? @ -Influenza A Acute, or Chronic, or Acute on Chronic? @ -Acute Uncomplicated (without systemic symptoms) or Complicated (systemic symptoms)? @ -Complicated Side effects of treatment? @ -No Exacerbation, Progression, or Severe Exacerbation? @ -No Poses a threat to life or bodily function? How? (Chest pain, [place], [place], pneumonia, PE, COPD, DKA, ARF, appy, cholecystitis, CVA, Diverticulitis, Homicidal, Suicidal, threat to staff... and all critical care pts) @ -No Diagnosis/symptom? @ -Respiratory failure Acute, or Chronic, or Acute on Chronic? @ -Acute Uncomplicated (without systemic symptoms) or Complicated (systemic symptoms)? @ -Complicated Side effects of treatment? @ -None Exacerbation, Progression, or Severe Exacerbation] @ -No Poses a threat to life or bodily function? @ -Yes this can lead to hypoxia and endorgan dysfunction Diagnosis/symptom? @ -Multilobar pneumonia Acute, or Chronic, or Acute on Chronic? @ -Acute Uncomplicated (without systemic symptoms) or Complicated (systemic symptoms)? @ -Complicated Side effects of treatment? @ -None Exacerbation, Progression, or Severe Exacerbation] @ -No Poses a threat to life or bodily function? @ -Yes this can lead to hypoxia and endorgan dysfunction (Sabino Solano) - Lab Data Lab Results 06/10/24 06/10/24 06/10/24 Range/Units 13:58 14:01 14:01 WBC 15.3 H (3.8-10.6) k/uL RBC 4.70 (4.30-5.90) m/uL Hgb 13.8 (13.0-17.5) gm/dL Hct 41.5 (39.0-53.0) % MCV 88.4 (80.0-100.0) fL MCH 29.5 (25.0-35.0) pg MCHC 33.3 (31.0-37.0) g/dL RDW 15.4 (11.5-15.5) % Plt Count 265 (150-450) k/uL MPV 11.6 Neutrophils % 85 % Lymphocytes % 8 % Monocytes % 3 % Eosinophils % 0 % Basophils % 1 % Neutrophils # 13.1 H (1.3-7.7) k/uL Lymphocytes # 1.2 (1.0-4.8) k/uL Monocytes # 0.5 (0-1.0) k/uL Eosinophils # 0.0 (0-0.7) k/uL Basophils # 0.1 (0-0.2) k/uL Poikilocytosis Slight PT 11.7 (10.0-12.5) sec INR 1.1 (<1.2) APTT 24.3 (22.0-30.0) sec Sample Site Left Radial ABG pH 7.36 (7.35-7.45) ABG pCO2 43 (35-45) mmHg ABG pO2 60 L (83-108) mmHg ABG HCO3 25 (21-25) mmol/L ABG Total CO2 26 H (19-24) mmol/L ABG O2 Saturation 88.9 L (94-97) % ABG Base Excess -0.8 mmol/L Matthew Test Yes FiO2 100 % Sodium (137-145) mmol/L Potassium (3.5-5.1) mmol/L Chloride (98-107) mmol/L Carbon Dioxide (22-30) mmol/L Anion Gap mmol/L BUN (9-20) mg/dL Creatinine (0.66-1.25) mg/dL Est GFR (CKD-EPI)AfAm (>60 ml/min/1.73 sqM) Est GFR (CKD-EPI)NonAf (>60 ml/min/1.73 sqM) Glucose (74-99) mg/dL Lactic Ac Sepsis Rflx Plasma Lactic Acid Rodolfo (0.7-2.0) mmol/L Calcium (8.4-10.2) mg/dL Total Bilirubin (0.2-1.3) mg/dL AST (17-59) U/L ALT (4-49) U/L Alkaline Phosphatase (38-126) U/L Total Protein (6.3-8.2) g/dL Albumin (3.5-5.0) g/dL Influenza Type A (PCR) (Not Detectd) Influenza Type B (PCR) (Not Detectd) RSV (PCR) (Not Detectd) SARS-CoV-2 (PCR) (Not Detectd) 06/10/24 06/10/24 06/10/24 Range/Units 14:01 14:04 14:28 WBC (3.8-10.6) k/uL RBC (4.30-5.90) m/uL Hgb (13.0-17.5) gm/dL Hct (39.0-53.0) % MCV (80.0-100.0) fL MCH (25.0-35.0) pg MCHC (31.0-37.0) g/dL RDW (11.5-15.5) % Plt Count (150-450) k/uL MPV Neutrophils % % Lymphocytes % % Monocytes % % Eosinophils % % Basophils % % Neutrophils # (1.3-7.7) k/uL Lymphocytes # (1.0-4.8) k/uL Monocytes # (0-1.0) k/uL Eosinophils # (0-0.7) k/uL Basophils # (0-0.2) k/uL Poikilocytosis PT (10.0-12.5) sec INR (<1.2) APTT (22.0-30.0) sec Sample Site ABG pH (7.35-7.45) ABG pCO2 (35-45) mmHg ABG pO2 (83-108) mmHg ABG HCO3 (21-25) mmol/L ABG Total CO2 (19-24) mmol/L ABG O2 Saturation (94-97) % ABG Base Excess mmol/L Matthew Test FiO2 % Sodium (137-145) mmol/L Potassium (3.5-5.1) mmol/L Chloride (98-107) mmol/L Carbon Dioxide (22-30) mmol/L Anion Gap mmol/L BUN (9-20) mg/dL Creatinine (0.66-1.25) mg/dL Est GFR (CKD-EPI)AfAm (>60 ml/min/1.73 sqM) Est GFR (CKD-EPI)NonAf (>60 ml/min/1.73 sqM) Glucose (74-99) mg/dL Lactic Ac Sepsis Rflx Y Plasma Lactic Acid Rodolfo 3.8 H* (0.7-2.0) mmol/L Calcium (8.4-10.2) mg/dL Total Bilirubin (0.2-1.3) mg/dL AST (17-59) U/L ALT (4-49) U/L Alkaline Phosphatase (38-126) U/L Total Protein (6.3-8.2) g/dL Albumin (3.5-5.0) g/dL Influenza Type A (PCR) Detected A (Not Detectd) Influenza Type B (PCR) Not Detected (Not Detectd) RSV (PCR) Not Detected (Not Detectd) SARS-CoV-2 (PCR) Not Detected (Not Detectd) 06/10/24 Range/Units 14:55 WBC (3.8-10.6) k/uL RBC (4.30-5.90) m/uL Hgb (13.0-17.5) gm/dL Hct (39.0-53.0) % MCV (80.0-100.0) fL MCH (25.0-35.0) pg MCHC (31.0-37.0) g/dL RDW (11.5-15.5) % Plt Count (150-450) k/uL MPV Neutrophils % % Lymphocytes % % Monocytes % % Eosinophils % % Basophils % % Neutrophils # (1.3-7.7) k/uL Lymphocytes # (1.0-4.8) k/uL Monocytes # (0-1.0) k/uL Eosinophils # (0-0.7) k/uL Basophils # (0-0.2) k/uL Poikilocytosis PT (10.0-12.5) sec INR (<1.2) APTT (22.0-30.0) sec Sample Site ABG pH (7.35-7.45) ABG pCO2 (35-45) mmHg ABG pO2 (83-108) mmHg ABG HCO3 (21-25) mmol/L ABG Total CO2 (19-24) mmol/L ABG O2 Saturation (94-97) % ABG Base Excess mmol/L Matthew Test FiO2 % Sodium 140 (137-145) mmol/L Potassium 4.5 (3.5-5.1) mmol/L Chloride 107 (98-107) mmol/L Carbon Dioxide 20 L (22-30) mmol/L Anion Gap 13 mmol/L BUN 63 H (9-20) mg/dL Creatinine 1.42 H (0.66-1.25) mg/dL Est GFR (CKD-EPI)AfAm 58 (>60 ml/min/1.73 sqM) Est GFR (CKD-EPI)NonAf 50 (>60 ml/min/1.73 sqM) Glucose 105 H (74-99) mg/dL Lactic Ac Sepsis Rflx Plasma Lactic Acid Rodolfo (0.7-2.0) mmol/L Calcium 8.7 (8.4-10.2) mg/dL Total Bilirubin 1.2 (0.2-1.3) mg/dL AST 32 (17-59) U/L ALT 22 (4-49) U/L Alkaline Phosphatase 101 (38-126) U/L Total Protein 5.9 L (6.3-8.2) g/dL Albumin 2.9 L (3.5-5.0) g/dL Influenza Type A (PCR) (Not Detectd) Influenza Type B (PCR) (Not Detectd) RSV (PCR) (Not Detectd) SARS-CoV-2 (PCR) (Not Detectd) Disposition Time of Disposition: 15:41 <Sabino Solano - Last Filed: 06/10/24 15:34> <Baljinder Subramanian - Last Filed: 06/10/24 16:55> Clinical Impression: Pneumonia of both lower lobes, Respiratory failure, Influenza Disposition: ADMITTED IP TO THIS HOSP
[2024-06-10] MEDS ORDERED: VANCOMYCIN IV PER PHARMACY 1 EACH MISC MISCELLANE PRN (15:27)
[2024-06-10] MEDS: MIDAZOLAM 1 MG/ML 5 ML VIAL IV STA (15:31)
[2024-06-10] MEDS: SUCCINYLCHOLINE CHLORIDE 200 MG/10 ML VIAL IV STA (15:31)
[2024-06-10] MEDS ORDERED: NALOXONE 0.4 MG/ML 1 ML VIAL IV PRN (15:41)
[2024-06-10] MEDS: CEFEPIME 2 GM in SODIUM CHLORIDE 0.9% 50 ML IVPB SCH (15:41)
--- NOTE | 2024-06-10 15:45 | CT ---
EXAMINATION TYPE: CT brain cspine wo con DATE OF EXAM: 06/10/2024 3:24 PM COMPARISON: None. CLINICAL INDICATION: Male, 69 years old with history of Trauma; Trauma pt fall, LT side forhead hemat coty, pain TECHNIQUE: Brain: Multiple axial CT images of the brain were obtained without IV contrast. Cspine: Axial CT images from the skull base to the inferior aspect of T2 we obtained without intraven ous contrast. Coronal and sagittal reformatted images were also reviewed. . CT DLP: 1739.2 mGycm, Automated exposure control for dose reduction was used. FINDINGS: Brain: Extra-axial spaces: No abnormal extra-axial fluid collections. Ventricular system: Within normal limits Cerebral parenchyma: No acute intraparenchymal hemorrhage or mass effect. The ying-white junction is well differentiated. Cerebellum: Unremarkable. Mass effect: No evidence of midline shift. Intracranial vasculature: unremarkable Soft tissues: Fat containing lesion over the left forehead compatible with lipoma measuring -115 Houn sfield units measuring up to 46 x 22 mm. Calvarium/osseous structures: No depressed skull fracture. Paranasal sinuses and mastoid air cells: Clear. Visualized orbits: Orbital contents are intact. Cervical spine: Fracture: None. Osseous structures: Multilevel degenerative disc disease changes with endplate spurring and disc oste ophyte complex's. Fusion of the posterior arch of C1. Vertebral alignment: Within normal limits. Spinal canal/Neural Foramina: No evidence of significant spinal canal narrowing. No evidence for sign ificant neural foraminal stenosis. Neck soft tissues: Prevertebral soft tissues are within normal limits. Other: The airway is patent. Diffuse airspace opacities within the left upper lung and to lesser exte nt right. Ecdl-vy-yvkmbjun emphysema changes. Elongated styloid processes bilaterally. IMPRESSION: 1. No acute intracranial process. 2. The left forehead abnormality is most compatible with lipoma. No hematoma visualized. 3. No evidence of cervical spine fracture. 4. Moderate multilevel degenerative disc disease. 5. Diffuse airspace disease superimposed on COPD correlate for pneumonia. [facility], , 06/10/2024 3:43 PM
--- NOTE | 2024-06-10 16:05 | XR ---
EXAMINATION TYPE: XR chest 1V confirm line [facility] DATE OF EXAM: 06/10/2024 4:00 PM COMPARISON: Chest radiographs from 06/10/2024 TECHNIQUE: XR chest 1V confirm line [facility] Portable AP radiograph of the chest. CLINICAL INDICATION:Male, 69 years old with history of OG and Tube placement; FINDINGS: Lungs/Pleura: No sizable pleural effusion. No pneumothorax. Similar patchy consolidative opacities th roughout the left lung and most pronounced within the left midlung. Additional patchy consolidative o pacities within the right lower lung. Pulmonary vascularity: Unremarkable. Heart/mediastinum: Cardiomediastinal silhouette is enlarged and stable. Atherosclerotic calcificatio ns are seen in the aorta. Musculoskeletal: No acute osseous pathology. Other findings: None Lines/Tubes: Endotracheal tube with distal tip 7.7 cm above the marie Nasogastric tube with its distal tip and side-port projecting under the diaphragm and projecting over the gastric lumen. IMPRESSION: 1. Similar multifocal airspace opacities concerning for pneumonia. 2. Endotracheal tube with distal tip 7.7 cm above the marie. Recommend advancement of at least 3 cm . 3. NG tube in appropriate position. [facility], , 06/10/2024 4:03 PM
[2024-06-10] MEDS: LACTATED RINGERS 1,000 ML IV ONE ×2 (16:06→19:15)
[2024-06-10] MEDS: CEFEPIME 2 GM in SODIUM CHLORIDE 0.9% 100 ML IVPB SCH (16:13)
[2024-06-10 16:20] LABS: ALT 22 U/L (4-49); AST 32 U/L (17-59); African American GFR (CKD) 58 (>60 ml/min/1.73 sqM); Albumin 2.9 g/dL (3.5-5.0); Alkaline Phosphatase 101 U/L (38-126); Anion Gap 13 mmol/L; Blood Urea Nitrogen 63 mg/dL (9-20); Calcium 8.7 mg/dL (8.4-10.2); Carbon Dioxide 20 mmol/L (22-30); Chloride 107 mmol/L (98-107); Glucose 105 mg/dL (74-99); Non-African American GFR(CKD) 50 (>60 ml/min/1.73 sqM); Potassium 4.5 mmol/L (3.5-5.1); Sodium 140 mmol/L (137-145); Total Bilirubin 1.2 mg/dL (0.2-1.3); Total Protein 5.9 g/dL (6.3-8.2)
[2024-06-10 16:24] LABS: Allen Test Performed? Yes
[2024-06-10 16:34] LABS: ABG Base Excess -2.4 mmol/L; ABG HCO3 26 mmol/L (21-25); ABG Oxygen Saturation 70.2 % (94-97); ABG PCO2 58 mmHg (35-45); ABG PH 7.26 (7.35-7.45); ABG TCO2 28 mmol/L (19-24)
[2024-06-10] MEDS ORDERED: DEXTROSE 50% SYRINGE 50 ML IVP PRN (16:34)
[2024-06-10] MEDS: VANCOMYCIN 1,500 MG in SODIUM CHLORIDE 0.9% 500 ML 500 ML IVPB ONE (16:37)
--- NOTE | 2024-06-10 16:43 | P.HPIM ---
History of Present Illness H&P Date: 06/10/24 Patient is a 69-year-old male with unknown past medical history. History obtained from chart review. Per ER note, EMS was called by patient's family for shortness of breath, family reported that multiple family members were sick in the house. They noted his SpO2 to be in 60s on placed him on CPAP with no improvement and he continued to breathe rapidly, spiking fever. Patient is unable to provide history due to acuity of condition ER course: Patient was placed on BiPAP for hypoxia, remained tachypneic and in respiratory distress despite BiPAP. Patient spent 1-1/2-hour on BiPAP with no improvement in his respiratory status, he is tachypneic in 50s, satting in mid to high 80s, decision was made to intubate, no family members available to obtain consent,. He was febrile 100.0, BP 138/94 Lab work significant for leukocytosis with left shift, normal hemoglobin and platelet, lactate elevated 2.8, ABG with pH of 7.36, pCO2 16, pCO2 43. Postoperative, influenza A. Sodium and potassium normal, creatinine 1.42, GFR 50, unknown baseline, glucose 105, AST ALT normal chest x-ray showed pleural abdominal consolidation, bibasilar infiltrates CT head done, no acute intracranial process, left forehead abnormality is most compatible with lipoma, no hematoma. No fracture, moderate multilevel degenerative disc disease Pertinent positives and negatives as discussed in HPI, a complete review of systems was performed and all other systems are negative. Patient seen and examined at bedside. Patient is in respiratory distress, on BiPAP Vital signs reviewed General: nontoxic, no acute distress, ill-appearing, obese Derm: warm, dry Head: Right frontal hematoma Eyes: EOMI, no lid lag, anicteric sclera, pupils equal round reactive to light ENT: Nose and ears atraumatic Neck: No thyromegaly, supple Mouth: no lip lesion, mucus membranes dry Cardiovascular: S1S2 reg, no murmur, no edema Lungs: Coarse breath sounds, diminished left sounds, no wheezes Abdominal: soft, nontender to palpation, no guarding, no appreciable organomegaly Ext: no gross muscle atrophy, muscle strength muscle strength 5 out of 5 in all 4 extremities, no contractures Neuro: CN II-XII grossly intact Psych: Alert, very hard of hearing, knows he is in the hospital Assessment/Plan: Sepsis secondary to severe community-acquired bacterial pneumonia, influenza A infection Acute hypoxic respiratory failure secondary to above requiring intubation 06/10/2024 -Continue mechanical ventilation and sedation -Continu cefepime 2 g twice daily, azithromycin 500 IV daily, vancomycin pha rmacy to dose SOT 06/10 -Follow-up sputum and blood cultures -Follow-up CBC and CMP -ICU consulted -Hypoglycemia protocol SSI, Accu-Cheks every 6 hours -Continue DuoNebs: 4 hours Elevated creatinine, unknown baseline, EMEKA on CKD versus CKD -Continue IV fluids, monitor BMP -Stress ulcer prophylaxis with IV Protonix history of hypertension based on home medications,: On amlodipine 10, losartan 100, Toprol-XL 50, will hold for now GERD: On home omeprazole 40 daily, IV Protonix Left forehead lipoma -CT head done, no acute intracranial process, left forehead abnormality is most compatible with lipoma, no hematoma. No fracture, moderate multilevel degenerative disc disease Obesity The patient is admitted with an anticipated [greater] than 2 midnight stay as [inpatient/] status for evaluation of sepsis secondary to severe pneumonia, acute hypoxic respiratory failure Surrogate decision-maker: TBD CODE STATUS:default full code DVT prophylaxis: Heparin Anticipated discharge date: tbd Anticipated discharge place: tbd A total of 50 minutes was spent on the care of this complex patient more than 50% of the time was spent in counseling and care coordination. Medications and Allergies Home Medications Medication Instructions Recorded Confirmed Type Losartan Potassium [Cozaar] 100 mg PO DAILY 06/10/24 06/10/24 History Meloxicam [Mobic] 15 mg PO DAILY PRN 06/10/24 06/10/24 History Metoprolol Succinate (ER) [Toprol 50 mg PO DAILY 06/10/24 06/10/24 History Xl] Omeprazole [PriLOSEC] 40 mg PO DAILY 06/10/24 06/10/24 History amLODIPine [Norvasc] 10 mg PO DAILY PRN 06/10/24 06/10/24 History traMADol HCl [Ultram] 100 mg PO BID PRN 06/10/24 06/10/24 History Allergies Allergy/AdvReac Type Severity Reaction Status Date / Time No Known Allergies Allergy Verified 06/10/24 14:08 Physical Exam Vitals: Vital Signs Temp Pulse Resp BP Pulse Ox FiO2 06/10/24 14:59 100 06/10/24 14:58 81 45 H 06/10/24 14:33 51 H 06/10/24 14:32 83 51 H 143/62 90 L 06/10/24 14:24 82 06/10/24 13:59 100 06/10/24 13:57 100 F H 84 45 H 138/94 88 L Intake and Output 06/10/24 06/10/24 06/10/24 06:59 14:59 22:59 Other: Weight 99.79 kg Results CBC & Chem 7: 06/10/24 14:01 06/10/24 14:55 Labs: Abnormal Lab Results - Last 24 Hours (Table) 06/10/24 06/10/24 06/10/24 Range/Units 13:58 14:01 14:01 WBC 15.3 H (3.8-10.6) k/uL Neutrophils # 13.1 H (1.3-7.7) k/uL ABG pO2 60 L (83-108) mmHg ABG Total CO2 26 H (19-24) mmol/L ABG O2 Saturation 88.9 L (94-97) % Plasma Lactic Acid Rodolfo 3.8 H* (0.7-2.0) mmol/L Influenza Type A (PCR) (Not Detectd) 06/10/24 Range/Units 14:04 WBC (3.8-10.6) k/uL Neutrophils # (1.3-7.7) k/uL ABG pO2 (83-108) mmHg ABG Total CO2 (19-24) mmol/L ABG O2 Saturation (94-97) % Plasma Lactic Acid Rodolfo (0.7-2.0) mmol/L Influenza Type A (PCR) Detected A (Not Detectd)
--- NOTE | 2024-06-10 17:02 | XR ---
EXAMINATION TYPE: XR chest 1V confirm line plcmt DATE OF EXAM: 06/10/2024 4:53 PM COMPARISON: None. CLINICAL INDICATION: Male, 69 years old with history of line placment, TECHNIQUE: XR chest 1V confirm line plcmt view(s) obtained. FINDINGS: The heart size is prominent. The pulmonary vasculature is normal. There is a large consolidation left upper lobe. Bibasilar infiltrates are present greater on the righ t. Correlate for pneumonia. Continued follow-up is recommended . Endotracheal tube tip is 5 cm above the marie. Nasogastric tube transverses the field of view. IMPRESSION: 1. Exam appears stable from comparison. 2. Left upper lobe and right lower lobe infiltrate suspicious for pneumonia. A milder left lower lobe infiltrate remains present. 3. Lines and catheters discussed above [facility], , 06/10/2024 5:00 PM
[2024-06-10 17:03] LABS: Glucose,Whole Blood 113 mg/dL (70-110)
[2024-06-10 17:14] LABS: ABG PO2 45 mmHg (83-108)
[2024-06-10] MEDS: INSULIN ASPART (NovoLOG) 100 UNIT/ML VIAL SQ SCH (17:15)
[2024-06-10] MEDS: CISATRACURIUM 2 MG/ML 5 ML VIAL IV ONE (17:15)
[2024-06-10 17:43] LABS: Glucose,Whole Blood 168 mg/dL (70-110)
[2024-06-10] MEDS: CISATRACURIUM 200 MG in SODIUM CHLORIDE 0.9% 180 ML IV SCH (18:19)
[2024-06-10 18:37] LABS: ABG Base Excess -3.3 mmol/L; ABG HCO3 27 mmol/L (21-25); ABG Oxygen Saturation 84.8 % (94-97); ABG PO2 66 mmHg (83-108); ABG TCO2 29 mmol/L (19-24)
[2024-06-10 18:41] LABS: ABG PCO2 77 mmHg (35-45); ABG PH 7.16 (7.35-7.45)
[2024-06-10] MEDS: SODIUM BICARB 8.4% 50 ML SYR (1 MEQ/ML) IV STA ×2 (18:52→22:37)
--- NOTE | 2024-06-10 18:53 | P.CNPUL ---
History of Present Illness Consult date: 06/10/24 Reason for consult: dyspnea History of present illness: 69-year-old male patient came into the emergency department for shortness of breath. According to the significant other, the patient was sick approximately a week ago and his condition has been progressively getting worse. The patient has been falling. He has been having difficulties in keeping himself up and moving around over the past 24 hours. Based on that, he came into the emergency department. His initial pulse ox was 60% and he was placed on a BiPAP and rapidly following that, the patient was intubated and placed on the mechanical ventilator. Chest x-ray at time of admission showed extensive pneumonia with left upper lobe consolidation and air bronchograms and bibasilar pulmonary infiltrates. Patient tested positive for influenza A. Postintubation, the patient's blood gases showed a pH of 7.36 with a pCO2 of 43 and pO2 of 60. Nevertheless, by the time he arrived to the ICU, the patient was again hypoxic with a pulse ox of 78%. Necessary ventilator changes were done and currently the patient is in a rate of 26, tidal volume of 375, PEEP of 24 with an FiO2 of 100% and expiratory pause of 0.2 ms. The blood gas showed a pH of 7.16 with a pCO2 of 77 and pO2 of 66. Triple-lumen catheter was established in the left IJ. Arterial line was also established. The patient is currently on Tamiflu. He was also started on broad-spectrum antibiotics utilizing a combination of cefepime Zithromax and vancomycin. Started on systemic steroids. Hemodynamically stable. No hypotension. Cardiac rhythm is sinus. According to the significant other, he has history of paroxysmal atrial fibrillation and the patient has undergone ablation. Cardiac rhythm is sinus. He also has hypertension. He is a former smoker. Does not utilize any form of oxygen therapy or inhalers on outpatient basis. No history of bronchial asthma. No history of COPD. No history of any congestion or heart failure. The white cell count of 15.3 with hemoglobin 15.8 and a platelet count of 265. Normal coagulation profile. BUN is 63 with a creatinine 1.42 and a sodium levels at 14 0 with a potassium level of 4.5. Initial lactic acid level was at 3.8 and dropped down to 2.0. The patient is currently on normal saline at rate of 100 cc an hour. Furthermore, he is sedated with propofol and paralytics with Bumex. In the intensive care unit. Review of Systems ROS unobtainable: due to endotracheal tube Past Medical History Additional Past Medical History / Comment(s): History approximately fibril lation, post ablation, hypertension Additional Past Surgical History / Comment(s): Cardiac ablation for atrial fibrillation Medications and Allergies Home Medications Medication Instructions Recorded Confirmed Type Losartan Potassium [Cozaar] 100 mg PO DAILY 06/10/24 06/10/24 History Meloxicam [Mobic] 15 mg PO DAILY PRN 06/10/24 06/10/24 History Metoprolol Succinate (ER) [Toprol 50 mg PO DAILY 06/10/24 06/10/24 History Xl] Omeprazole [PriLOSEC] 40 mg PO DAILY 06/10/24 06/10/24 History amLODIPine [Norvasc] 10 mg PO DAILY PRN 06/10/24 06/10/24 History traMADol HCl [Ultram] 100 mg PO BID PRN 06/10/24 06/10/24 History Allergies Allergy/AdvReac Type Severity Reaction Status Date / Time No Known Allergies Allergy Verified 06/10/24 14:08 Physical Exam Vitals: Vital Signs Temp Pulse Resp BP Pulse Ox FiO2 06/10/24 18:00 69 22 95/54 78 L 100 06/10/24 17:53 67 32 H 95/54 78 L 06/10/24 17:45 100 06/10/24 17:19 71 32 H 105/58 72 L 06/10/24 17:03 71 26 H 107/52 68 L 06/10/24 16:52 100 06/10/24 16:35 73 35 H 106/56 73 L 06/10/24 16:14 79 28 H 102/60 06/10/24 15:58 80 37 H 128/102 68 L 06/10/24 15:53 82 37 H 67 L 06/10/24 15:33 100 06/10/24 14:59 100 06/10/24 14:58 81 45 H 06/10/24 14:33 51 H 06/10/24 14:32 83 51 H 143/62 90 L 06/10/24 14:24 82 06/10/24 13:59 100 06/10/24 13:57 100 F H 84 45 H 138/94 88 L Intake and Output 06/10/24 06/10/24 06/10/24 06:59 14:59 22:59 Intake Total 1695.656 Output Total 370 Balance 1325.656 Intake: IV 1675 Cefepime 2 gm In Sodium 100 Chloride 0.9% 50 ml @ 100 mls/hr IVPB Q12H [facility] Rx# :[id number] Lactated Ringers 1,000 ml 1000 @ 1000 mls/hr IV .Q1H ONE Rx#:[id number] Sodium Chloride 0.9% 1, 75 000 ml @ 100 mls/hr IV . Q10H [facility] Rx#:[id number] Vancomycin 1,500 mg In 500 Sodium Chloride 0.9% 500 ml 500 ml @ 167 mls/hr IVPB ONCE ONE Rx#: [id number] Intake, IV Titration 20.656 Amount propofoL 1,000 mg In 20.656 Empty Bag 1 bag @ 15 MCG/ KG/MIN 8.981 mls/hr IV . Q11H9M [facility] Rx#:[id number] Output: Urine 370 Uretheral ([place]) 350 Other: Weight 99.79 kg The patient appeared well nourished and normally developed. Vital signs as documented. The patient is sedated. The patient is paralyzed. Remains on mechanical ventilator. Orogastric orotracheal tube are both in place. Head exam is unremarkable. No scleral icterus or corneal arcus noted. Neck is without jugular venous distension, thyromegaly, or carotid bruits. Carotid upstrokes are brisk bilaterally. The patient has a left IJ triple-lumen catheter in place Lungs are clear to auscultation and percussion. Diminished breath sound bilateral lung with bibasilar crackles Cardiac exam reveals the PMI to be normally sized and situated. Rhythm is regular. First and second heart sounds normal. No murmurs, rubs or gallops. Abdominal exam reveals normal bowel sounds, no masses, no organomegaly and no aortic enlargement. Extremities are nonedematous and both femoral and pedal pulses are normal. Examination of the skin revealed no evidence of significant rashes, suspicious appearing nevi or other concerning lesions. Neurologically, the patient is a sedated and paralyzed. Results - Laboratory Findings CBC and BMP: 06/10/24 14:01 06/10/24 14:55 ABG ABG pH 7.16 (7.35-7.45) L* 06/10/24 18:29 ABG pCO2 77 mmHg (35-45) H* 06/10/24 18:29 ABG pO2 66 mmHg (83-108) L 06/10/24 18:29 ABG O2 Saturation 84.8 % (94-97) L 06/10/24 18:29 PT/INR, D-dimer PT 11.7 sec (10.0-12.5) 06/10/24 14:01 INR 1.1 (<1.2) 06/10/24 14:01 Abnormal lab findings: Abnormal Labs 06/10/24 06/10/24 06/10/24 13:58 14:01 14:01 WBC 15.3 H Neutrophils # 13.1 H ABG pH ABG pCO2 ABG pO2 60 L ABG HCO3 ABG Total CO2 26 H ABG O2 Saturation 88.9 L Carbon Dioxide BUN Creatinine Glucose POC Glucose (mg/dL) Plasma Lactic Acid Rodolfo 3.8 H* Total Protein Albumin Influenza Type A (PCR) 06/10/24 06/10/24 06/10/24 14:04 14:55 16:15 WBC Neutrophils # ABG pH 7.26 L ABG pCO2 58 H ABG pO2 45 L* ABG HCO3 26 H ABG Total CO2 28 H ABG O2 Saturation 70.2 L Carbon Dioxide 20 L BUN 63 H Creatinine 1.42 H Glucose 105 H POC Glucose (mg/dL) Plasma Lactic Acid Rodolfo Total Protein 5.9 L Albumin 2.9 L Influenza Type A (PCR) Detected A 06/10/24 06/10/24 06/10/24 17:01 17:41 18:29 WBC Neutrophils # ABG pH 7.16 L* ABG pCO2 77 H* ABG pO2 66 L ABG HCO3 27 H ABG Total CO2 29 H ABG O2 Saturation 84.8 L Carbon Dioxide BUN Creatinine Glucose POC Glucose (mg/dL) 113 H 168 H Plasma Lactic Acid Rodolfo Total Protein Albumin Influenza Type A (PCR) - Diagnostic Findings Chest x-ray: image reviewed Assessment and Plan Plan: Acute hypoxic respiratory failure secondary to bilateral pneumonia. The patient presented to the hospital found hypoxic, current intubated on mechanical ventilator. He was intubated in the emergency department. He is currently being ventilated with low tidal volumes allowing permissive hypercapnia. The patient is on a high level of PEEP to maintain adequate oxygenation. Superimposed bacterial infection is possible although considered to be less likely. Bilateral pneumonia, rule out viral influenza pneumonia. Bacterial superinfection cannot be completely ruled out. Extensive consolidation worse in the left upper lobe in addition to bilateral lower lobe pulmonary infiltration. Shortness of breath, progressively getting worse over the past 1 week Acute leukocytosis Acute kidney injury History of atrial fibrillation post ablation and cardiac rhythm is sinus. Hypertension Plan Keep the patient sedated with propofol and paralyzed with Nimbex Necessary ventilator changes were done and the patient is undergoing permissive hypercapnia with high PEEP to maintain oxygenation. His I:E ratio is also reversed We will obtain follow-up blood gases an hour Tamiflu 75 mg p.o. twice a day IV Solu-Medrol 60 mg every 6 hours Broad-spectrum antibiotics with a combination of cefepime Zithromax and vancomycin Check procalcitonin level Check sputum cultures and blood cultures Continue normal saline at rate of 100 cc an hour Monitor hemodynamics and pressors if needed Obtain an echocardiogram Lovenox 40 mg subcu for DVT prophylaxis IV Protonix Keep the patient n.p.o. for now Condition is critical. Will monitor oxygenation very closely. May be a good candidate for VV ECMO if no improvement in his condition over the next 12 to 24 hours. I discussed the findings with his brother and spoke to him over the phone. I also talked with his significant other at the bedside. This is a critical care evaluation that was done more than 60 minutes. Condition is critical at this point in time. Time with Patient: Greater than 30
--- NOTE | 2024-06-10 18:55 | P.PCN ---
Date of Procedure: 06/10/24 Preoperative Diagnosis: Bilateral pneumonia with hypoxic respiratory failure Postoperative Diagnosis: Same Procedure(s) Performed: Central line insertion Arterial line insertion Anesthesia: local Surgeon: Sonia Stovall Estimated Blood Loss (ml): 0 Pathology: other Condition: critical Disposition: ICU Operative Findings: Indication: Hemodynamic monitoring/Intravenous access. A time-out was completed verifying correct patient, procedure, site, positioning, and implant(s) or special equipment if applicable. The patient was placed in a dependent position appropriate for triple lumen catheter placement based on the vein to be cannulated. The patient's left internal jugular area was prepped and draped in sterile fashion. 1% Lidocaine was used to anesthetize the surrounding skin area. A triple lumen 9F Cordis catheter was introduced into the internal jugular vein using Seldinger technique. The catheter was threaded smoothly over the guide wire and appropriate blood return was obtained. Each lumen of the catheter was evacuated of air and flushed with sterile saline. The catheter was then sutured in place to the skin and a sterile dressing applied. Perfusion to the extremity distal to the point of catheter insertion was checked and found to be adequate. Indication: Hemodynamic monitoring. A time-out was completed verifying correct patient, procedure, site, positioning, and implant(s) or special equipment if applicable. Allens test was performed to ensure adequate perfusion. The patientÂ´s left wrist was prepped and draped in sterile fashion. 1% Lidocaine was used to anesthetize the area. An 18G Arrow arterial line was introduced into the left radial artery. The catheter was threaded over the guide wire and the needle was removed with appropriate pulsatile blood return. Blood loss was minimal. The catheter was then sutured in place to the skin and a sterile dressing applied. Perfusion to the extremity distal to the point of catheter insertion was checked and found to be adequate. The patient tolerated the procedure well and there were no complications.
[2024-06-10] MEDS: SODIUM CHLORIDE 0.9% 1,000 ML IV SCH (18:58)
[2024-06-10] MEDS: methylPREDNISolone SOD SUCCI 125 MG/2 ML VIAL IV SCH (19:02)
--- NOTE | 2024-06-10 19:41 | XR ---
EXAMINATION TYPE: XR chest 1V confirm line plcmt DATE OF EXAM: 06/10/2024 6:29 PM COMPARISON: 06/10/2024 CLINICAL INDICATION: Male, 69 years old with history of central line insertion, TECHNIQUE: XR chest 1V confirm line plcmt view(s) obtained. FINDINGS: The heart size is normal. The pulmonary vasculature is normal. Large left upper lobe and right lower lobe consolidations are present. Endotracheal tube tip is 6.2 cm above the marie. Nasogastric tube transverses the field of view. A c entral venous catheter tip is in the superior vena cava region. No pneumothorax is evident IMPRESSION: 1. Left upper and right lower lobe infiltrates. 2. Lines and catheters discussed above [facility], , 06/10/2024 7:38 PM
[2024-06-10] MEDS: IPRATROPIUM-ALBUTEROL 3 ML NEB INHALATION PRN (20:06)
[2024-06-10] MEDS: NOREPINEPHRINE 4 MG in SODIUM CHLORIDE 0.9% 250 ML IV SCH (20:25)
[2024-06-10 21:44] LABS: ABG Oxygen Saturation 92.2 % (94-97); ABG PO2 94 mmHg (83-108)
[2024-06-10 21:48] LABS: ABG PCO2 >98 mmHg (35-45); ABG PH 7.02 (7.35-7.45); Allen Test Performed? no
[2024-06-10] MEDS: SODIUM CHLORIDE 0.9% 2,000 ML IV ONE (22:06)
[2024-06-10 23:12] LABS: Glucose,Whole Blood 182 mg/dL (70-110)
[2024-06-10] MEDS: DEXTROSE 5% IN WATER 1,000 ML with SODIUM BICARB (1 MEQ/ML) 150 ML IV SCH (23:19)
[2024-06-10 23:43] LABS: ABG Oxygen Saturation 94.3 % (94-97); ABG PO2 99 mmHg (83-108)
[2024-06-10] MEDS: VASOPRESSIN 20 UNIT in SODIUM CHLORIDE 0.9% 50 ML IV SCH (23:44)
[2024-06-10 23:45] LABS: ABG PH 7.04 (7.35-7.45)
[2024-06-10 23:46] LABS: ABG PCO2 >98 mmHg (35-45); Allen Test Performed? no
[2024-06-10 23:55] LABS: African American GFR (CKD) 44 (>60 ml/min/1.73 sqM); Anion Gap 5 mmol/L; Blood Urea Nitrogen 65 mg/dL (9-20); Calcium 7.1 mg/dL (8.4-10.2); Carbon Dioxide 30 mmol/L (22-30); Chloride 106 mmol/L (98-107); Glucose 179 mg/dL (74-99); Non-African American GFR(CKD) 38 (>60 ml/min/1.73 sqM); Potassium 5.7 mmol/L (3.5-5.1); Sodium 141 mmol/L (137-145)
[2024-06-11] MEDS: HEPARIN SODIUM,PORCINE 5,000 UNIT/ML 1 ML VIAL SQ SCH (00:26)
[2024-06-11 05:27] LABS: ABG Oxygen Saturation 96.3 % (94-97); ABG PO2 102 mmHg (83-108)
[2024-06-11 05:38] LABS: ABG PCO2 >98 mmHg (35-45); ABG PH 7.05 (7.35-7.45); Allen Test Performed? no
[2024-06-11 05:54] LABS: ALT 24 U/L (4-49); AST 32 U/L (17-59); African American GFR (CKD) 35 (>60 ml/min/1.73 sqM); Albumin 2.6 g/dL (3.5-5.0); Alkaline Phosphatase 117 U/L (38-126); Anion Gap 8 mmol/L; Blood Urea Nitrogen 66 mg/dL (9-20); Carbon Dioxide 28 mmol/L (22-30); Chloride 104 mmol/L (98-107); Glucose 262 mg/dL (74-99); Non-African American GFR(CKD) 31 (>60 ml/min/1.73 sqM); Potassium 5.4 mmol/L (3.5-5.1); Sodium 140 mmol/L (137-145); Total Bilirubin 0.7 mg/dL (0.2-1.3); Total Protein 5.5 g/dL (6.3-8.2)
[2024-06-11 06:42] LABS: HCT 39.3 % (39.0-53.0); HGB 12.1 gm/dL (13.0-17.5); Hypochromasia Marked; MCH 29.3 pg (25.0-35.0); MCHC 30.6 g/dL (31.0-37.0); MCV 95.6 fL (80.0-100.0); Mean Platelet Volume 10.4; Platelet Count 311 k/uL (150-450); RBC 4.12 m/uL (4.30-5.90); RDW 15.7 % (11.5-15.5)
[2024-06-11] MEDS: SODIUM BICARB 8.4% 50 ML SYR (1 MEQ/ML) IV STA (07:56)
[2024-06-11] MEDS: VANCOMYCIN 1,500 MG in SODIUM CHLORIDE 0.9% 500 ML 500 ML IVPB SCH (08:14)
[2024-06-11] MEDS: PANTOPRAZOLE 40 MG/10 ML VIAL IVP SCH (08:15)
--- NOTE | 2024-06-11 08:31 | XR ---
EXAMINATION TYPE: XR chest 1V portable DATE OF EXAM: 06/11/2024 4:01 AM COMPARISON: 06/10/2024 CLINICAL INDICATION: Male, 69 years old with history of mechanical ventilation, difficulty breathing TECHNIQUE: XR chest 1V portable view(s) obtained. FINDINGS: The heart size is normal. The pulmonary vasculature is normal. Left upper lobe and right lower lobe infiltrates remain present. Correlate for pneumonia. Endotracheal tube tip is 7 cm above the marie. Nasogastric tube tip is in the left upper quadrant of the abdomen. IMPRESSION: 1. Left upper and right lower lobe pneumonia. 2. Lines and catheters discussed. 3. Exam appears stable from comparison. [facility], , 06/11/2024 8:29 AM
[2024-06-11] MEDS ORDERED: OSELTAMIVIR 30 MG CAP PO SCH (09:00)
[2024-06-11 09:27] LABS: ABG Base Excess -3.3 mmol/L; ABG HCO3 28 mmol/L (21-25); ABG Oxygen Saturation 98.6 % (94-97); ABG PO2 138 mmHg (83-108); ABG TCO2 31 mmol/L (19-24); Allen Test Performed? Yes
[2024-06-11 09:34] LABS: ABG PCO2 88 mmHg (35-45); ABG PH 7.11 (7.35-7.45)
[2024-06-11] MEDS: CHLORHEXIDINE GLUCONATE 15 ML CUP MUCOUS MEM SCH (09:47)
[2024-06-11] MEDS: NOREPINEPHRINE 8 MG in SODIUM CHLORIDE 0.9% 250 ML IV SCH (09:47)
[2024-06-11] MEDS ORDERED: VANCOMYCIN 1,500 MG in SODIUM CHLORIDE 0.9% 500 ML 500 ML IVPB SCH (10:30)
[2024-06-11] MEDS: AZITHROMYCIN 500 MG in SODIUM CHLORIDE 0.9% 250 ML IVPB SCH (10:51)
[2024-06-11] MEDS: OSELTAMIVIR 60 MG/10 ML ORAL SYRINGE PO SCH (10:52)
--- NOTE | 2024-06-11 11:15 | P.NPCON ---
History of Present Illness - Reason for Consult acute renal failure - History of Present Illness Patient is a 69-year-old male with history of chronic A-fib who is admitted to the hospital with complaints of shortness of breath and increased weakness. Patient was noted to be significantly hypoxic when EMS arrived with O2 sats in the 60%. He was intubated and remained hypercapnic and hypoxic for some time. FiO2 has now been decreased to 80% PEEP is at 24. Patient has also been hypotensive requiring large doses of pressors. Levophed at 0.9 and also maintained on vasopressin. Patient tested positive for influenza A and is maintained on Tamiflu. He has also received vancomycin for bacterial pneumonia coverage. Chest x-ray shows left lung pneumonia with upper lobe consolidation and air bronchograms. Serum creatinine was 1.42 and has increased to 2.1 now. Poor urine output which has now started to improve to about 20 cc an hour for the last couple of hours. Past Medical History Past Medical History: Atrial Fibrillation, COPD, Hypertension Additional Past Medical History / Comment(s): History approximately fibrillation, post ablation, hypertension History of Any Multi-Drug Resistant Organisms: None Reported Past Surgical History: Heart Catheterization, Hernia Repair Additional Past Surgical History / Comment(s): Cardiac ablation for atrial fibrillation Past Anesthesia/Blood Transfusion Reactions: Unable to Obtain Past Psychological History: Unable to Obtain Smoking Status: Former smoker Past Alcohol Use History: Unable to Obtain Past Drug Use History: Unable to Obtain - Past Family History Father Additional Family Medical History / Comment(s): enlarged heart Mother Additional Family Medical History / Comment(s): skipped heart beat Medications and Allergies Home Medications Medication Instructions Recorded Confirmed Type Apixaban [Eliquis] 5 mg PO BID 02/15/22 02/01/24 History Losartan Potassium 100 mg PO DAILY 02/15/22 02/01/24 History Meloxicam [Mobic] 15 mg PO DAILY PRN 02/15/22 01/30/24 History Omeprazole 40 mg PO DAILY 02/15/22 02/01/24 History amLODIPine [Norvasc] 10 mg PO DAILY 05/12/22 02/01/24 History traMADol HCL 50 mg PO Q6H PRN 05/12/22 01/30/24 History Metoprolol Succinate (ER) [Toprol 50 mg PO DAILY #90 tab 02/01/24 Rx XL] Losartan Potassium [Cozaar] 100 mg PO DAILY 06/10/24 06/10/24 History Meloxicam [Mobic] 15 mg PO DAILY PRN 06/10/24 06/10/24 History Metoprolol Succinate (ER) [Toprol 50 mg PO DAILY 06/10/24 06/10/24 History Xl] Omeprazole [PriLOSEC] 40 mg PO DAILY 06/10/24 06/10/24 History amLODIPine [Norvasc] 10 mg PO DAILY PRN 06/10/24 06/10/24 History traMADol HCl [Ultram] 100 mg PO BID PRN 06/10/24 06/10/24 History Allergies Allergy/AdvReac Type Severity Reaction Status Date / Time No Known Allergies Allergy Verified 06/11/24 08:23 Physical Exam Vitals: Vital Signs Temp Pulse Resp BP Pulse Ox FiO2 06/11/24 11:00 90 34 H 95 06/11/24 10:30 93 34 H 95 06/11/24 10:00 89 32 H 143/53 94 L 06/11/24 09:38 80 06/11/24 09:37 80 06/11/24 09:30 92 34 H 97 06/11/24 09:00 94 32 H 97 06/11/24 08:30 93 32 H 96 06/11/24 08:02 93 06/11/24 08:00 97.8 F 95 32 H 97 100 06/11/24 07:55 100 06/11/24 07:45 100 06/11/24 07:30 89 32 H 96 06/11/24 07:00 90 31 H 146/55 96 06/11/24 06:30 93 31 H 147/57 96 06/11/24 06:00 89 34 H 130/52 95 06/11/24 05:30 87 32 H 131/51 95 06/11/24 05:00 84 43 H 132/52 94 L 06/11/24 04:30 84 31 H 127/49 94 L 06/11/24 04:00 97.8 F 77 32 H 127/48 93 L 100 06/11/24 03:58 78 06/11/24 03:47 100 06/11/24 03:46 80 06/11/24 03:30 76 32 H 124/52 93 L 06/11/24 03:00 75 32 H 115/48 93 L 06/11/24 02:30 73 31 H 120/49 93 L 06/11/24 02:00 70 33 H 118/48 92 L 06/11/24 01:30 69 33 H 117/49 91 L 06/11/24 01:00 68 33 H 119/51 91 L 06/11/24 00:30 67 32 H 116/51 92 L 06/11/24 00:00 97.7 F 69 32 H 121/48 92 L 100 06/10/24 23:50 70 100 06/10/24 23:30 70 32 H 119/50 92 L 06/10/24 23:17 71 33 H 119/50 92 L 06/10/24 23:00 72 32 H 127/50 92 L 06/10/24 22:30 71 25 H 128/48 92 L 06/10/24 22:00 72 25 H 133/49 92 L 06/10/24 21:30 71 26 H 126/50 91 L 06/10/24 21:00 71 26 H 119/49 91 L 06/10/24 20:30 72 26 H 117/45 90 L 06/10/24 20:16 72 06/10/24 20:08 100 06/10/24 20:06 72 06/10/24 20:00 98.0 F 72 26 H 114/49 90 L 100 06/10/24 19:30 73 26 H 118/49 90 L 06/10/24 19:00 74 26 H 111/53 89 L 100 06/10/24 18:30 74 26 H 107/55 84 L 06/10/24 18:00 69 22 95/54 78 L 100 06/10/24 17:53 98.1 F 67 32 H 95/54 78 L 06/10/24 17:45 100 06/10/24 17:40 100 06/10/24 17:19 71 32 H 105/58 72 L 06/10/24 17:03 71 26 H 107/52 68 L 06/10/24 16:35 73 35 H 106/56 73 L 06/10/24 16:14 79 28 H 102/60 06/10/24 15:58 80 37 H 128/102 68 L 06/10/24 15:53 82 37 H 67 L 06/10/24 15:33 100 06/10/24 14:59 100 06/10/24 14:58 81 45 H 06/10/24 14:33 51 H 06/10/24 14:32 83 51 H 143/62 90 L 06/10/24 14:24 82 06/10/24 13:59 100 06/10/24 13:57 100 F H 84 45 H 138/94 88 L Intake and Output 06/10/24 06/11/24 06/11/24 22:59 06:59 14:59 Intake Total 3348.296 3454.634 1305.692 Output Total 380 40 300 Balance 2968.296 3414.634 1005.692 Intake: IV 3190 2524 715 Cefepime 2 gm In Sodium 100 Chloride 0.9% 50 ml @ 100 mls/hr IVPB Q12H [facility] Rx# :[id number] Dextrose 5% in Water 1, 700 500 000 ml @ 100 mls/hr IV . [id number] JACQUES with Sodium Bicarb (1 Meq/ml) 150 ml Rx#:[id number] Lactated Ringers 1,000 ml 2000 1000 @ 1000 mls/hr IV .Q1H ONE Rx#:[id number] Pressure Bag (0.9 sodium 15 24 15 chloride) Sodium Chloride 0.9% 1, 575 800 200 000 ml @ 100 mls/hr IV . Q10H [facility] Rx#:[id number] Vancomycin 1,500 mg In 500 Sodium Chloride 0.9% 500 ml 500 ml @ 167 mls/hr IVPB ONCE ONE Rx#: [id number] Intake, IV Titration 158.296 930.634 590.692 Amount Norepinephrine 4 mg In 58.296 627.330 445.901 Sodium Chloride 0.9% 250 ml @ 0.03 MCG/KG/MIN 11. 406 mls/hr IV .[id number] [facility] Rx#:[id number] Norepinephrine 8 mg In 73.940 Sodium Chloride 0.9% 250 ml @ 0.03 MCG/KG/MIN 6. 589 mls/hr IV .Q24H [facility] Rx#:[id number] Vasopressin 20 unit In 20.400 Sodium Chloride 0.9% 50 ml @ 0.03 UNITS/MIN 4.59 mls/hr IV .Q11H7M [facility] Rx# :[id number] propofoL 1,000 mg In 100.000 282.904 70.851 Empty Bag 1 bag @ 15 MCG/ KG/MIN 8.981 mls/hr IV . Q11H9M [facility] Rx#:[id number] Output: Gastric Drainage 250 Urine 380 40 50 Uretheral ([place]) 350 Other: Voiding Method Indwelling Catheter Indwelling Catheter Indwelling Catheter Weight 99.79 kg 113.5 kg 115.8 kg ABP, PAP, CO, CI - Last 8 Hours Arterial Blood Pressure 96/47 Arterial Blood Pressure 103/46 Arterial Blood Pressure 88/41 Arterial Blood Pressure 95/43 Arterial Blood Pressure 86/43 Arterial Blood Pressure 81/41 Arterial Blood Pressure 87/43 Arterial Blood Pressure 82/40 Arterial Blood Pressure 84/41 Arterial Blood Pressure 91/45 Arterial Blood Pressure 79/39 Arterial Blood Pressure 78/39 Arterial Blood Pressure 76/39 Arterial Blood Pressure 77/39 Arterial Blood Pressure 73/37 Arterial Blood Pressure 77/39 Patient is sedated and on the vent Examination of the heart S1 and S2 Examination the lungs bilateral breath sounds are heard Abdomen is soft obese Examination of lower extremity shows no significant edema Results - Lab Results Most recent lab results ABG pH 7.11 (7.35-7.45) L* 06/11/24 09:18 ABG pCO2 88 mmHg (35-45) H* 06/11/24 09:18 ABG pO2 138 mmHg (83-108) H 06/11/24 09:18 ABG HCO3 28 mmol/L (21-25) H 06/11/24 09:18 ABG O2 Saturation 98.6 % (94-97) H 06/11/24 09:18 Calcium 7.0 mg/dL (8.4-10.2) L 06/11/24 04:45 Magnesium 3.2 mg/dL (1.6-2.3) H 06/10/24 20:00 06/11/24 04:45 06/11/24 04:45 Assessment and Plan Assessment: 1. Acute kidney injury, oliguric ATN from severe hypotension and sepsis. Check UA. Check ultrasound of the kidneys. Previous creatinine 1.0 on 02/01/2024 2. Septic shock from pneumonia, viral and possible bacterial pneumonia as well. 3. Influenza A 4. Severe respiratory acidosis from respiratory failure slowly improving 5. Chronic A-fib status post cardiac ablation Plan: Continue with IV hydration Bicarb drip being managed by charge accounts audit clerk. Switch to normal saline once discontinued Continue with antibiotics Check UA Check ultrasound of the kidneys Thank you for the consultation. We will continue to follow the patient with you during specialization.
[2024-06-11 12:01] LABS: Glucose,Whole Blood 357 mg/dL (70-110)
--- NOTE | 2024-06-11 12:03 | P.PN ---
Subjective Progress Note Date: 06/11/24 69-year-old male patient came into the emergency department for shortness of breath. According to the significant other, the patient was sick approximately a week ago and his condition has been progressively getting worse. The patient has been falling. He has been having difficulties in keeping himself up and moving around over the past 24 hours. Based on that, he came into the emergency department. His initial pulse ox was 60% and he was placed on a BiPAP and rapidly following that, the patient was intubated and placed on the mechanical ventilator. Chest x-ray at time of admission showed extensive pneumonia with left upper lobe consolidation and air bronchograms and bibasilar pulmonary inf iltrates. Patient tested positive for influenza A. Postintubation, the patient's blood gases showed a pH of 7.36 with a pCO2 of 43 and pO2 of 60. Nevertheless, by the time he arrived to the ICU, the patient was again hypoxic with a pulse ox of 78%. Necessary ventilator changes were done and currently the patient is in a rate of 26, tidal volume of 375, PEEP of 24 with an FiO2 of 100% and expiratory pause of 0.2 ms. The blood gas showed a pH of 7.16 with a pCO2 of 77 and pO2 of 66. Triple-lumen catheter was established in the left IJ. Arterial line was also established. The patient is currently on Tamiflu. He was also started on broad-spectrum antibiotics utilizing a combination of c efepime Zithromax and vancomycin. Started on systemic steroids. Hemodynamically stable. No hypotension. Cardiac rhythm is sinus. According to the significant other, he has history of paroxysmal atrial fibrillation and the patient has undergone ablation. Cardiac rhythm is sinus. He also has hy pertension. He is a former smoker. Does not utilize any form of oxygen therapy or inhalers on outpatient basis. No history of bronchial asthma. No history of COPD. No history of any congestion or heart failure. The white cell count of 15.3 with hemoglobin 15.8 and a platelet count of 265. Normal coagulation profile. BUN is 63 with a creatinine 1.42 and a sodium levels at 140 with a potassium level of 4.5. Initial lactic acid level was at 3.8 and dropped down to 2.0. The patient is currently on normal saline at rate of 100 cc an hour. Furthermore, he is sedated with propofol and paralytics with Bumex. In the intensive care unit. 06/11/2024, the patient is being seen for a follow-up. This morning, the patient remains on propofol running at 50 mcg/kg/min and the patient is also paralyzed with Nimbex at 1 mcg/kg/h. Remains on assist-control mode of mechanical ventilation. Rate is 32 with a tidal volume of 400, FiO2 is 100% with a PEEP of 24. Morning blood gases showed a pH of 7.05 with a pCO2 being more than 98 and pO2 was 102. Chest x-ray shows diffuse bilateral pulmonary infiltrates, slightly worse compared to yesterday. Hemodynamically, the patient was given a total of 3 L of IV fluids. Started on bicarb infusion which is running at 100 cc an hour. Patient is on norepinephrine running at 0.5 mcg/kg/min and vasopressin at 0.04 units. Urine output is extremely low almost absent and the patient has developed an acute kidney injury. Overall fluid balance is +6.3 L over the past 24 hours. The white cell count of 27 with a hemoglobin 12.1 and a platelet count of 311. Sodium is at 140, potassium is at 5.4, chloride 104 and bicarb is 28. BUN 66 with a creatinine of 2.1. Based on the morning blood gases, I dropped the PEEP down to 20, I removed the inspiratory pause. I brought up the tidal volume to 450 and increase the respirate up to 34. Most recent peak airway pressure is 37. Cervical pressure is 33. The subsequent blood gas obtained showed a pH of 7.11 with a pCO2 of 88 and a pO2 of 138. Based on that, the PEEP was dropped down to 18. The patient is currently on a tidal volume of 450 with a respiratory rate of 34. FiO2 was dropped down to 80%. The patient will be started on enteral feeding for nutritional support. Afebrile. Remains on broad-spectrum antibiotics. The patient on a combination of cefepime, Zithromax and vancomycin. The patient is also on Tamiflu. The patient on IV Solu-Medrol. Objective - Vital Signs Vital signs: Vital Signs Temp 97.8 F 06/11/24 08:00 Pulse 94 06/11/24 09:00 Resp 32 H 06/11/24 09:00 BP 146/55 06/11/24 07:00 Pulse Ox 97 06/11/24 09:00 FiO2 100 06/11/24 08:00 Intake & Output 06/10/24 06/11/24 06/11/24 18:59 06:59 18:59 Intake Total 6288.032 8858.274 700.901 Output Total 370 50 215 Balance 8709.149 1143.274 485.901 Weight 99.79 kg 113.5 kg Intake: IV 1778 3936 509 Cefepime 2 gm In Sodium 100 Chloride 0.9% 50 ml @ 100 mls/hr IVPB Q12H [facility] Rx# :[id number] Dextrose 5% in Water 1, 700 300 000 ml @ 100 mls/hr IV . [id number] JACQUES with Sodium Bicarb (1 Meq/ml) 150 ml Rx#:[id number] Lactated Ringers 1,000 ml 1000 2000 @ 1000 mls/hr IV .Q1H ONE Rx#:[id number] Pressure Bag (0.9 sodium 3 36 9 chloride) Sodium Chloride 0.9% 1, 175 1200 200 000 ml @ 100 mls/hr IV . Q10H [facility] Rx#:[id number] Vancomycin 1,500 mg In 500 Sodium Chloride 0.9% 500 ml 500 ml @ 167 mls/hr IVPB ONCE ONE Rx#: [id number] Intake, IV Titration 20.656 1068.274 191.901 Amount Norepinephrine 4 mg In 685.626 191.901 Sodium Chloride 0.9% 250 ml @ 0.03 MCG/KG/MIN 11. 406 mls/hr IV .[id number] [facility] Rx#:[id number] Vasopressin 20 unit In 20.400 Sodium Chloride 0.9% 50 ml @ 0.03 UNITS/MIN 4.59 mls/hr IV .Q11H7M [facility] Rx# :[id number] propofoL 1,000 mg In 20.656 362.248 Empty Bag 1 bag @ 15 MCG/ KG/MIN 8.981 mls/hr IV . Q11H9M [facility] Rx#:[id number] Output: Gastric Drainage 200 Urine 370 50 15 Uretheral ([place]) 350 Other: Voiding Method Indwelling Catheter Indwelling Catheter Indwelling Catheter ABP, PAP, CO, CI - Last Documented Arterial Blood Pressure 86/43 - Exam The patient appeared well nourished and normally developed. Vital signs as documented. The patient is sedated. The patient is paralyzed. Remains on mechanical ventilator. Orogastric orotracheal tube are both in place. Head exam is unremarkable. No scleral icterus or corneal arcus noted. Neck is without jugular venous distension, thyromegaly, or carotid bruits. Carotid upstrokes are brisk bilaterally. The patient has a left IJ triple-lumen catheter in place Lungs are clear to auscultation and percussion. Diminished breath sound bilateral lung with bibasilar crackles Cardiac exam reveals the PMI to be normally sized and situated. Rhythm is regular. First and second heart sounds normal. No murmurs, rubs or gallops. Abdominal exam reveals normal bowel sounds, no masses, no organomegaly and no aortic enlargement. Extremities are nonedematous and both femoral and pedal pulses are normal. Examination of the skin revealed no evidence of significant rashes, suspicious appearing nevi or other concerning lesions. Neurologically, the patient is a sedated and paralyzed. - Labs CBC & Chem 7: 06/11/24 04:45 06/11/24 04:45 Labs: Abnormal Lab Results - Last 24 Hours (Table) 06/10/24 06/10/24 06/10/24 Range/Units 13:58 14:01 14:01 WBC 15.3 H (3.8-10.6) k/uL RBC (4.30-5.90) m/uL Hgb (13.0-17.5) gm/dL MCHC (31.0-37.0) g/dL RDW (11.5-15.5) % Neutrophils # 13.1 H (1.3-7.7) k/uL ABG pH (7.35-7.45) ABG pCO2 (35-45) mmHg ABG pO2 60 L (83-108) mmHg ABG HCO3 (21-25) mmol/L ABG Total CO2 26 H (19-24) mmol/L ABG O2 Saturation 88.9 L (94-97) % Potassium (3.5-5.1) mmol/L Carbon Dioxide (22-30) mmol/L BUN (9-20) mg/dL Creatinine (0.66-1.25) mg/dL Glucose (74-99) mg/dL POC Glucose (mg/dL) (70-110) mg/dL Plasma Lactic Acid Rodolfo 3.8 H* (0.7-2.0) mmol/L Calcium (8.4-10.2) mg/dL Magnesium (1.6-2.3) mg/dL Total Protein (6.3-8.2) g/dL Albumin (3.5-5.0) g/dL Influenza Type A (PCR) (Not Detectd) 06/10/24 06/10/24 06/10/24 Range/Units 14:04 14:55 16:15 WBC (3.8-10.6) k/uL RBC (4.30-5.90) m/uL Hgb (13.0-17.5) gm/dL MCHC (31.0-37.0) g/dL RDW (11.5-15.5) % Neutrophils # (1.3-7.7) k/uL ABG pH 7.26 L (7.35-7.45) ABG pCO2 58 H (35-45) mmHg ABG pO2 45 L* (83-108) mmHg ABG HCO3 26 H (21-25) mmol/L ABG Total CO2 28 H (19-24) mmol/L ABG O2 Saturation 70.2 L (94-97) % Potassium (3.5-5.1) mmol/L Carbon Dioxide 20 L (22-30) mmol/L BUN 63 H (9-20) mg/dL Creatinine 1.42 H (0.66-1.25) mg/dL Glucose 105 H (74-99) mg/dL POC Glucose (mg/dL) (70-110) mg/dL Plasma Lactic Acid Rodolfo (0.7-2.0) mmol/L Calcium (8.4-10.2) mg/dL Magnesium (1.6-2.3) mg/dL Total Protein 5.9 L (6.3-8.2) g/dL Albumin 2.9 L (3.5-5.0) g/dL Influenza Type A (PCR) Detected A (Not Detectd) 06/10/24 06/10/24 06/10/24 Range/Units 17:01 17:41 18:29 WBC (3.8-10.6) k/uL RBC (4.30-5.90) m/uL Hgb (13.0-17.5) gm/dL MCHC (31.0-37.0) g/dL RDW (11.5-15.5) % Neutrophils # (1.3-7.7) k/uL ABG pH 7.16 L* (7.35-7.45) ABG pCO2 77 H* (35-45) mmHg ABG pO2 66 L (83-108) mmHg ABG HCO3 27 H (21-25) mmol/L ABG Total CO2 29 H (19-24) mmol/L ABG O2 Saturation 84.8 L (94-97) % Potassium (3.5-5.1) mmol/L Carbon Dioxide (22-30) mmol/L BUN (9-20) mg/dL Creatinine (0.66-1.25) mg/dL Glucose (74-99) mg/dL POC Glucose (mg/dL) 113 H 168 H (70-110) mg/dL Plasma Lactic Acid Rodolfo (0.7-2.0) mmol/L Calcium (8.4-10.2) mg/dL Magnesium (1.6-2.3) mg/dL Total Protein (6.3-8.2) g/dL Albumin (3.5-5.0) g/dL Influenza Type A (PCR) (Not Detectd) 06/10/24 06/10/24 06/10/24 Range/Units 20:00 21:40 23:10 WBC (3.8-10.6) k/uL RBC (4.30-5.90) m/uL Hgb (13.0-17.5) gm/dL MCHC (31.0-37.0) g/dL RDW (11.5-15.5) % Neutrophils # (1.3-7.7) k/uL ABG pH 7.02 L* (7.35-7.45) ABG pCO2 >98 H* (35-45) mmHg ABG pO2 (83-108) mmHg ABG HCO3 (21-25) mmol/L ABG Total CO2 (19-24) mmol/L ABG O2 Saturation 92.2 L (94-97) % Potassium 5.7 H (3.5-5.1) mmol/L Carbon Dioxide (22-30) mmol/L BUN 65 H (9-20) mg/dL Creatinine 1.79 H (0.66-1.25) mg/dL Glucose 179 H (74-99) mg/dL POC Glucose (mg/dL) (70-110) mg/dL Plasma Lactic Acid Rodolfo (0.7-2.0) mmol/L Calcium 7.1 L (8.4-10.2) mg/dL Magnesium 3.2 H (1.6-2.3) mg/dL Total Protein (6.3-8.2) g/dL Albumin (3.5-5.0) g/dL Influenza Type A (PCR) (Not Detectd) 06/10/24 06/10/24 06/11/24 Range/Units 23:10 23:36 04:45 WBC 27.0 H (3.8-10.6) k/uL RBC 4.12 L (4.30-5.90) m/uL Hgb 12.1 L (13.0-17.5) gm/dL MCHC 30.6 L (31.0-37.0) g/dL RDW 15.7 H (11.5-15.5) % Neutrophils # (1.3-7.7) k/uL ABG pH 7.04 L* (7.35-7.45) ABG pCO2 >98 H* (35-45) mmHg ABG pO2 (83-108) mmHg ABG HCO3 (21-25) mmol/L ABG Total CO2 (19-24) mmol/L ABG O2 Saturation (94-97) % Potassium (3.5-5.1) mmol/L Carbon Dioxide (22-30) mmol/L BUN (9-20) mg/dL Creatinine (0.66-1.25) mg/dL Glucose (74-99) mg/dL POC Glucose (mg/dL) 182 H (70-110) mg/dL Plasma Lactic Acid Rodolfo (0.7-2.0) mmol/L Calcium (8.4-10.2) mg/dL Magnesium (1.6-2.3) mg/dL Total Protein (6.3-8.2) g/dL Albumin (3.5-5.0) g/dL Influenza Type A (PCR) (Not Detectd) 06/11/24 06/11/24 Range/Units 04:45 04:45 WBC (3.8-10.6) k/uL RBC (4.30-5.90) m/uL Hgb (13.0-17.5) gm/dL MCHC (31.0-37.0) g/dL RDW (11.5-15.5) % Neutrophils # (1.3-7.7) k/uL ABG pH 7.05 L* (7.35-7.45) ABG pCO2 >98 H* (35-45) mmHg ABG pO2 (83-108) mmHg ABG HCO3 (21-25) mmol/L ABG Total CO2 (19-24) mmol/L ABG O2 Saturation (94-97) % Potassium 5.4 H (3.5-5.1) mmol/L Carbon Dioxide (22-30) mmol/L BUN 66 H (9-20) mg/dL Creatinine 2.14 H (0.66-1.25) mg/dL Glucose 262 H (74-99) mg/dL POC Glucose (mg/dL) (70-110) mg/dL Plasma Lactic Acid Rodolfo (0.7-2.0) mmol/L Calcium 7.0 L (8.4-10.2) mg/dL Magnesium (1.6-2.3) mg/dL Total Protein 5.5 L (6.3-8.2) g/dL Albumin 2.6 L (3.5-5.0) g/dL Influenza Type A (PCR) (Not Detectd) Microbiology - Last 24 Hours (Table) 06/10/24 17:10 Gram Stain - Preliminary Sputum Assessment and Plan Plan: Acute hypoxic respiratory failure secondary to bilateral pneumonia. The patient presented to the hospital found hypoxic, current intubated on mechanical ventilator. He was intubated in the emergency department. He is currently being ventilated with low tidal volumes allowing permissive hypercapnia. The patient is on a high level of PEEP to maintain adequate oxygenation. Superimposed bacterial infection is possible although considered to be less likely. The chest x-ray and the blood gas from this morning was noted. Necessary ventilator changes were done. There is some interval improvement in oxygenation and acid-base status. The patient is currently on a bicarb drip. Bilateral pneumonia, rule out viral influenza pneumonia. Bacterial superinfection cannot be completely ruled out. Extensive consolidation worse in the left upper lobe in addition to bilateral lower lobe pulmonary infiltration. Chest x-ray is unchanged and the patient remains on broad-spectrum antibiotics and Tamiflu. Acute kidney injury, the patient is anuric at this point. Rule out ATN. There is progressive rise in the creatinine Sepsis with secondary hypotension secondary to above. Currently on fluids and pressors. Acute leukocytosis History of atrial fibrillation post ablation and cardiac rhythm is sinus. Hypertension Plan Keep the patient sedated with propofol and paralyzed with Nimbex Ventilator changes were done. The patient is currently on a PEEP of 18 with an FiO2 of 80%, tidal volumes of 450 with a rate of 34. Respiratory pause was discontinued. Repeated blood gas at noon time. Continue Tamiflu 75 mg p.o. twice a day Continue IV Solu-Medrol 60 mg every 6 hours Continue broad-spectrum antibiotics with a combination of cefepime Zithromax and vancomycin Check procalcitonin level Check sputum cultures and blood cultures Continue bicarb infusion at a rate of 100 cc an hour Continue pressors Obtain an echocardiogram Nephrology consultation Start enteral feeding for nutritional support Lovenox 40 mg subcu for DVT prophylaxis IV Protonix Condition is critical. Will monitor oxygenation very closely. I discussed the findings with his brother and spoke to him over the phone. I also talked with his significant other at the bedside. This is a critical care evaluation that was done more than 40 minutes. Condition is critical at this point in time. Time with Patient: Greater than 30
[2024-06-11 12:36] LABS: Appearance,Urine Cloudy (Clear); Bilirubin,Urine Negative (Negative); Blood,Urine Moderate (Negative); Color,Urine Dark Yellow; Glucose,Urine (UA) Negative (Negative); Ketones,Urine Trace (Negative); Leukocyte Esterase,Urine Small (Negative); Mucus,Urine Rare /hpf; Nitrite,Urine Negative (Negative); Protein,Urine 1+ (Negative); RBC,Urine 78 /hpf (0-5); Specific Gravity,Urine 1.029 (1.001-1.035); Urobilinogen,Urine <2.0 mg/dL (<2.0); WBC,Urine 5 /hpf (0-5)
[2024-06-11 12:47] LABS: Band Neutrophils % 5 %; Lymphocytes # (M) 1.59 k/uL (1.0-4.8); Myelocytes # (M) 0.27 k/uL (0); Myelocytes % 1 %; Neutrophils % (M) 87 %; Nucleated Red Blood Cells 2 /100 WBC (0-0); Total Cells Counted 200; WBC 26.5 k/uL (3.8-10.6)
[2024-06-11 12:54] LABS: Poikilocytosis (M) Present
--- NOTE | 2024-06-11 13:15 | US ---
EXAMINATION TYPE: US kidneys/renal and bladder DATE OF EXAM: 06/11/2024 COMPARISON: NONE CLINICAL INDICATION: Male, 69 years old with history of emeka; EMEKA TECHNIQUE: Grayscale imaging of the bilateral kidneys and urinary bladder: FINDINGS: EXAM MEASUREMENTS: Right Kidney: 11.9 x 6.0 x 4.2 cm Left Kidney: 11.1 x 6.2 x 4.9 cm *Technical limitations, ICU, intubated patient Right Kidney: lobulated contour Left Kidney: limited evaluation due to overlying bowel gas and patient position Bladder: not visualized - [place] There is no evidence for hydronephrosis at this point in time. No nephrolithiasis is seen. No león s are identified. The urinary bladder is anechoic. IMPRESSION: 1. No suspicious acute ultrasound abnormality of the kidneys as visualized. [facility], , 06/11/2024 1:12 PM
[2024-06-11 13:37] LABS: Allen Test Performed? Yes
[2024-06-11 13:38] LABS: ABG HCO3 28 mmol/L (21-25); ABG PCO2 76 mmHg (35-45); ABG PH 7.18 (7.35-7.45); ABG PO2 95 mmHg (83-108)
[2024-06-11 13:39] LABS: ABG Base Excess -1.9 mmol/L; ABG TCO2 30 mmol/L (19-24)
--- NOTE | 2024-06-11 16:31 | P.PN ---
Subjective Progress Note Date: 06/11/24 Hospital Course: Patient is a 69-year-old male with past medical history of A-fib status post ab lation, hypertension. History obtained from chart review. Per ER note, EMS was called by patient's family for shortness of breath, family reported that multiple family members were sick in the house. They noted his SpO2 to be in 60s on placed him on CPAP with no improvement and he continued to breathe rapidly, spiking fever ER course: Patient was febrile Patient was placed on BiPAP for hypoxia, remained tachypneic and in respiratory distress despite BiPAP. Patient spent 1-1/2-hour on BiPAP with no improvement in his respiratory status, he is tachypneic in 50s, satting in mid to high 80s, decision was made to intubate, no family members available to obtain consent,. Intubated on 06/10, sedated, paralyzed, transferred to ICU, started on treatment for acute hypoxic respiratory failure secondary to bilateral pneumonia, influenza A pneumonia, cefepime, vancomycin, was alternating SOT 06/10. Patient was additionally started on IV Solu-Medrol, sputum and blood cultures obtained, pending. Repeat chest x-ray showed diffuse pulmonary infiltrates worsening from yesterday, blood gases showed severe acidosis with pH of 7.05, patient was started on bicarb drip overnight, his blood pressure dropped and he was started on the BiPAP but required up titration for better BP control., Later vaso pressin was initiated. Patient was noted to have very low urine output, worsening kidney function. Nephrology consulted, recommended to continue bicarb drip, IV hydration, kidney ultrasound and UA ordered, pending.. Pertinent Imaging: Chest x-ray with left upper and right lower lobe pneumonia Subjective: Intubated, sedated, paralyzed, patient's brother and fianc at bedside updated on patient's condition, treatment plan, all questions answered Vitals Signs Reviewed. General: [Ill-appearing, intubated, sedated, paralyzed Derm: [warm], [dry] Head: [atraumatic], [normocephalic], [symmetric] Eyes: [EOMI], [no lid lag], [anicteric sclera] Mouth: [no lip lesion], [mucus membranes moist], ETT, OG tube Cardiovascular: [S1S2 reg], [no murmur] Lungs: Diminished breath sounds, crackles left more than right Abdominal: [soft], [ nontender to palpation], [no guarding], [no appreciable org anomegaly] Ext: [no gross muscle atrophy], [no edema], [no contractures] Neuro: [ CN II-XI grossly intact], [no focal neuro deficits] Psych: [Alert], [oriented], [appropriate affect] Data Reviewed Today: Pertinent Labs: Leukocytosis 26.5, hemoglobin 12.1, platelet count 311, ABG with pH of 7.05, improved on bicarb drip to 7.18, sodium normal, potassium mildly elevated 5.4, creatinine rising to 2.14, blood glucose 262, A1c 6.0, AST and ALT normal, UA with 1+ proteinuria, hematuria. Legionella negative. Blood cultures growing gram-positive cocci in chains Assessment and Plan: Sepsis secondary to severe bilateral community-acquired pneumonia, influenza A infection Gram-positive cocci in chains and blood cultures Acute hypoxic respiratory failure secondary to above requiring intubation 06/10/2024 REspiratory acidosis -Continue mechanical ventilation and sedation per ICU -Continu cefepime 2 g twice daily, azithromycin 500 IV daily, vancomycin pharmacy to dose SOT 06/10, continue oseltamivir -Continue medications. Continue Eliquis elevated -Follow-up sputum and blood cultures preliminary blood cultures growing gram- positive cocci in chains -Follow-up CBC and CMP -ICU consulted -Hypoglycemia protocol SSI, Accu-Cheks every 6 hours, added Levemir -Continue DuoNebs: 4 hours -continue bicarb drip, follow up ABG, vent adjustments per ICU EMEKA, oliguric likely secondary to ATN in the settings of hypotension and sepsis Hematuria -Continue IV fluids, monitor BMP -Nephrology following -UA reviewed, kidney ultrasound pending -Stress ulcer prophylaxis with IV Protonix Persistent A-fib status post ablation : Currently in sinus rhythm history of hypertension ,: On amlodipine 10, losartan 100, Toprol-XL 50, will hold for now due to hypotension requiring pressors GERD: On home omeprazole 40 daily, IV Protonix Left forehead lipoma -CT head done, no acute intracranial process, left forehead abnormality is most compatible with lipoma, no hematoma. No fracture, moderate multilevel degenerative disc disease Obesity CODE STATUS:default full code DVT prophylaxis: Heparin Anticipated discharge date: tbd Anticipated discharge place: tbd Objective - Vital Signs Vital signs: Vital Signs Temp 98.6 F 06/11/24 16:00 Pulse 103 H 06/11/24 16:00 Resp 33 H 06/11/24 16:00 BP 143/53 06/11/24 10:00 Pulse Ox 95 06/11/24 16:00 FiO2 100 06/11/24 16:00 Intake & Output 06/10/24 06/11/24 06/11/24 18:59 06:59 18:59 Intake Total 6893.246 2348.274 3066.016 Output Total 370 50 395 Balance 0359.972 4698.274 2671.016 Weight 99.79 kg 113.5 kg 115.8 kg Intake: IV 1778 3936 1230 Cefepime 2 gm In Sodium 100 Chloride 0.9% 50 ml @ 100 mls/hr IVPB Q12H [facility] Rx# :[id number] Dextrose 5% in Water 1, 700 1000 000 ml @ 100 mls/hr IV . [id number] [facility] with Sodium Bicarb (1 Meq/ml) 150 ml Rx#:[id number] Lactated Ringers 1,000 ml 1000 2000 @ 1000 mls/hr IV .Q1H [facility] Rx#:[id number] Pressure Bag (0.9 sodium 3 36 30 chloride) Sodium Chloride 0.9% 1, 175 1200 200 000 ml @ 100 mls/hr IV . Q10H [facility] Rx#:[id number] Vancomycin 1,500 mg In 500 Sodium Chloride 0.9% 500 ml 500 ml @ 167 mls/hr IVPB ONCE [facility] Rx#: [id number] Intake, IV Titration 20.656 6269.082 9708.016 Amount Norepinephrine 4 mg In 685.626 445.901 Sodium Chloride 0.9% 250 ml @ 0.03 MCG/KG/MIN 11. 406 mls/hr IV .[id number] [facility] Rx#:[id number] Norepinephrine 8 mg In 1008.264 Sodium Chloride 0.9% 250 ml @ 0.03 MCG/KG/MIN 6. 589 mls/hr IV .Q24H [facility] Rx#:[id number] Vasopressin 20 unit In 20.400 51 Sodium Chloride 0.9% 50 ml @ 0.03 UNITS/MIN 4.59 mls/hr IV .[id number] [facility] Rx# :[id number] propofoL 1,000 mg In 20.656 362.248 170.851 Empty Bag 1 bag @ 15 MCG/ KG/MIN 8.981 mls/hr IV . Q11H9M [facility] Rx#:[id number] Tube Feeding 100 Other 60 Output: Gastric Drainage 250 Urine 370 50 145 Uretheral ([place]) 350 Other: Voiding Method Indwelling Catheter Indwelling Catheter Indwelling Catheter ABP, PAP, CO, CI - Last Documented Arterial Blood Pressure 114/50 - Labs CBC & Chem 7: 06/11/24 04:45 06/11/24 04:45 Labs: Abnormal Lab Results - Last 24 Hours (Table) 06/10/24 06/10/24 06/10/24 Range/Units 16:15 17:01 17:41 WBC (3.8-10.6) k/uL RBC (4.30-5.90) m/uL Hgb (13.0-17.5) gm/dL MCHC (31.0-37.0) g/dL RDW (11.5-15.5) % Neutrophils # (Manual) (1.3-7.7) k/uL Myelocytes # (Manual) (0) k/uL Nucleated RBCs (0-0) /100 WBC ABG pH 7.26 L (7.35-7.45) ABG pCO2 58 H (35-45) mmHg ABG pO2 45 L* (83-108) mmHg ABG HCO3 26 H (21-25) mmol/L ABG Total CO2 28 H (19-24) mmol/L ABG O2 Saturation 70.2 L (94-97) % Potassium (3.5-5.1) mmol/L BUN (9-20) mg/dL Creatinine (0.66-1.25) mg/dL Glucose (74-99) mg/dL POC Glucose (mg/dL) 113 H 168 H (70-110) mg/dL Calcium (8.4-10.2) mg/dL Magnesium (1.6-2.3) mg/dL Total Protein (6.3-8.2) g/dL Albumin (3.5-5.0) g/dL Urine Protein (Negative) Urine Ketones (Negative) Urine Blood (Negative) Ur Leukocyte Esterase (Negative) Urine RBC (0-5) /hpf Urine Mucus (None) /hpf 06/10/24 06/10/24 06/10/24 Range/Units 18:29 20:00 21:40 WBC (3.8-10.6) k/uL RBC (4.30-5.90) m/uL Hgb (13.0-17.5) gm/dL MCHC (31.0-37.0) g/dL RDW (11.5-15.5) % Neutrophils # (Manual) (1.3-7.7) k/uL Myelocytes # (Manual) (0) k/uL Nucleated RBCs (0-0) /100 WBC ABG pH 7.16 L* 7.02 L* (7.35-7.45) ABG pCO2 77 H* >98 H* (35-45) mmHg ABG pO2 66 L (83-108) mmHg ABG HCO3 27 H (21-25) mmol/L ABG Total CO2 29 H (19-24) mmol/L ABG O2 Saturation 84.8 L 92.2 L (94-97) % Potassium (3.5-5.1) mmol/L BUN (9-20) mg/dL Creatinine (0.66-1.25) mg/dL Glucose (74-99) mg/dL POC Glucose (mg/dL) (70-110) mg/dL Calcium (8.4-10.2) mg/dL Magnesium 3.2 H (1.6-2.3) mg/dL Total Protein (6.3-8.2) g/dL Albumin (3.5-5.0) g/dL Urine Protein (Negative) Urine Ketones (Negative) Urine Blood (Negative) Ur Leukocyte Esterase (Negative) Urine RBC (0-5) /hpf Urine Mucus (None) /hpf 06/10/24 06/10/24 06/10/24 Range/Units 23:10 23:10 23:36 WBC (3.8-10.6) k/uL RBC (4.30-5.90) m/uL Hgb (13.0-17.5) gm/dL MCHC (31.0-37.0) g/dL RDW (11.5-15.5) % Neutrophils # (Manual) (1.3-7.7) k/uL Myelocytes # (Manual) (0) k/uL Nucleated RBCs (0-0) /100 WBC ABG pH 7.04 L* (7.35-7.45) ABG pCO2 >98 H* (35-45) mmHg ABG pO2 (83-108) mmHg ABG HCO3 (21-25) mmol/L ABG Total CO2 (19-24) mmol/L ABG O2 Saturation (94-97) % Potassium 5.7 H (3.5-5.1) mmol/L BUN 65 H (9-20) mg/dL Creatinine 1.79 H (0.66-1.25) mg/dL Glucose 179 H (74-99) mg/dL POC Glucose (mg/dL) 182 H (70-110) mg/dL Calcium 7.1 L (8.4-10.2) mg/dL Magnesium (1.6-2.3) mg/dL Total Protein (6.3-8.2) g/dL Albumin (3.5-5.0) g/dL Urine Protein (Negative) Urine Ketones (Negative) Urine Blood (Negative) Ur Leukocyte Esterase (Negative) Urine RBC (0-5) /hpf Urine Mucus (None) /hpf 06/11/24 06/11/24 06/11/24 Range/Units 04:45 04:45 04:45 WBC 26.5 H (3.8-10.6) k/uL RBC 4.12 L (4.30-5.90) m/uL Hgb 12.1 L (13.0-17.5) gm/dL MCHC 30.6 L (31.0-37.0) g/dL RDW 15.7 H (11.5-15.5) % Neutrophils # (Manual) 24.30 H (1.3-7.7) k/uL Myelocytes # (Manual) 0.27 H (0) k/uL Nucleated RBCs 2 H (0-0) /100 WBC ABG pH 7.05 L* (7.35-7.45) ABG pCO2 >98 H* (35-45) mmHg ABG pO2 (83-108) mmHg ABG HCO3 (21-25) mmol/L ABG Total CO2 (19-24) mmol/L ABG O2 Saturation (94-97) % Potassium 5.4 H (3.5-5.1) mmol/L BUN 66 H (9-20) mg/dL Creatinine 2.14 H (0.66-1.25) mg/dL Glucose 262 H (74-99) mg/dL POC Glucose (mg/dL) (70-110) mg/dL Calcium 7.0 L (8.4-10.2) mg/dL Magnesium (1.6-2.3) mg/dL Total Protein 5.5 L (6.3-8.2) g/dL Albumin 2.6 L (3.5-5.0) g/dL Urine Protein (Negative) Urine Ketones (Negative) Urine Blood (Negative) Ur Leukocyte Esterase (Negative) Urine RBC (0-5) /hpf Urine Mucus (None) /hpf 06/11/24 06/11/24 06/11/24 Range/Units 09:18 11:48 11:49 WBC (3.8-10.6) k/uL RBC (4.30-5.90) m/uL Hgb (13.0-17.5) gm/dL MCHC (31.0-37.0) g/dL RDW (11.5-15.5) % Neutrophils # (Manual) (1.3-7.7) k/uL Myelocytes # (Manual) (0) k/uL Nucleated RBCs (0-0) /100 WBC ABG pH 7.11 L* (7.35-7.45) ABG pCO2 88 H* (35-45) mmHg ABG pO2 138 H (83-108) mmHg ABG HCO3 28 H (21-25) mmol/L ABG Total CO2 31 H (19-24) mmol/L ABG O2 Saturation 98.6 H (94-97) % Potassium (3.5-5.1) mmol/L BUN (9-20) mg/dL Creatinine (0.66-1.25) mg/dL Glucose (74-99) mg/dL POC Glucose (mg/dL) 357 H (70-110) mg/dL Calcium (8.4-10.2) mg/dL Magnesium (1.6-2.3) mg/dL Total Protein (6.3-8.2) g/dL Albumin (3.5-5.0) g/dL Urine Protein 1+ H (Negative) Urine Ketones Trace H (Negative) Urine Blood Moderate H (Negative) Ur Leukocyte Esterase Small H (Negative) Urine RBC 78 H (0-5) /hpf Urine Mucus Rare H (None) /hpf 06/11/24 Range/Units 13:25 WBC (3.8-10.6) k/uL RBC (4.30-5.90) m/uL Hgb (13.0-17.5) gm/dL MCHC (31.0-37.0) g/dL RDW (11.5-15.5) % Neutrophils # (Manual) (1.3-7.7) k/uL Myelocytes # (Manual) (0) k/uL Nucleated RBCs (0-0) /100 WBC ABG pH 7.18 L* (7.35-7.45) ABG pCO2 76 H* (35-45) mmHg ABG pO2 (83-108) mmHg ABG HCO3 28 H (21-25) mmol/L ABG Total CO2 30 H (19-24) mmol/L ABG O2 Saturation (94-97) % Potassium (3.5-5.1) mmol/L BUN (9-20) mg/dL Creatinine (0.66-1.25) mg/dL Glucose (74-99) mg/dL POC Glucose (mg/dL) (70-110) mg/dL Calcium (8.4-10.2) mg/dL Magnesium (1.6-2.3) mg/dL Total Protein (6.3-8.2) g/dL Albumin (3.5-5.0) g/dL Urine Protein (Negative) Urine Ketones (Negative) Urine Blood (Negative) Ur Leukocyte Esterase (Negative) Urine RBC (0-5) /hpf Urine Mucus (None) /hpf Microbiology - Last 24 Hours (Table) 06/10/24 14:04 Blood Culture Gram Stain - Preliminary Blood Blood Culture - Preliminary Molecular ID 06/10/24 17:10 Gram Stain - Preliminary Sputum
[2024-06-11 17:33] LABS: Glucose,Whole Blood 307 mg/dL (70-110)
[2024-06-11] MEDS: INSULIN DETEMIR (LEVEMIR) 100 UNIT/ML SYR SQ SCH (22:08)
[2024-06-11] MEDS: FUROSEMIDE 10 MG/ML 10 ML VIAL IV STA (22:08)
[2024-06-11 23:16] LABS: Glucose,Whole Blood 277 mg/dL (70-110)
[2024-06-12] MEDS: DEXTROSE 5% IN WATER 100 ML with AMIODARONE 150 MG IV ONE (01:52)
[2024-06-12] MEDS: AMIODARONE 360 MG in DEXTROSE 5% IN WATER 200 ML IV ONE (02:17)
[2024-06-12 03:14] LABS: ABG Base Excess 0.2 mmol/L; ABG HCO3 30 mmol/L (21-25); ABG Oxygen Saturation 95.9 % (94-97); ABG PH 7.21 (7.35-7.45); ABG PO2 89 mmHg (83-108); ABG TCO2 32 mmol/L (19-24)
[2024-06-12 03:17] LABS: ABG PCO2 75 mmHg (35-45)
[2024-06-12 03:18] LABS: Allen Test Performed? no
[2024-06-12 03:58] LABS: ALT 19 U/L (4-49); AST 23 U/L (17-59); African American GFR (CKD) 26 (>60 ml/min/1.73 sqM); Albumin 2.6 g/dL (3.5-5.0); Alkaline Phosphatase 128 U/L (38-126); Anion Gap 9 mmol/L; Blood Urea Nitrogen 82 mg/dL (9-20); Calcium 6.6 mg/dL (8.4-10.2); Carbon Dioxide 30 mmol/L (22-30); Chloride 101 mmol/L (98-107); Glucose 294 mg/dL (74-99); Magnesium 3.2 mg/dL (1.6-2.3); Non-African American GFR(CKD) 22 (>60 ml/min/1.73 sqM); Potassium 4.4 mmol/L (3.5-5.1); Sodium 140 mmol/L (137-145); Total Bilirubin 0.8 mg/dL (0.2-1.3); Total Protein 5.7 g/dL (6.3-8.2)
[2024-06-12 05:20] LABS: Glucose,Whole Blood 327 mg/dL (70-110)
[2024-06-12 05:22] LABS: ABG Base Excess -0.2 mmol/L; ABG HCO3 29 mmol/L (21-25); ABG Oxygen Saturation 96.4 % (94-97); ABG PH 7.21 (7.35-7.45); ABG PO2 92 mmHg (83-108); ABG TCO2 31 mmol/L (19-24)
[2024-06-12 05:24] LABS: ABG PCO2 73 mmHg (35-45); Allen Test Performed? no
[2024-06-12 06:04] LABS: HCT 35.4 % (39.0-53.0); HGB 11.6 gm/dL (13.0-17.5); Hypochromasia Marked; MCH 30.6 pg (25.0-35.0); MCHC 32.7 g/dL (31.0-37.0); MCV 93.7 fL (80.0-100.0); Mean Platelet Volume 9.3; Platelet Count 209 k/uL (150-450); RBC 3.78 m/uL (4.30-5.90); RDW 15.7 % (11.5-15.5); WBC 20.8 k/uL (3.8-10.6)
[2024-06-12 07:21] LABS: Lymphocytes # (M) 0.62 k/uL (1.0-4.8); Metamyelocytes # (M) 0.21 k/uL (0); Metamyelocytes % 1 %; Monocytes # (M) 0.62 k/uL (0-1.0); Neutrophils # (M) 19.76 k/uL (1.3-7.7); Neutrophils % (M) 95 %; Nucleated Red Blood Cells 0 /100 WBC (0-0); Total Cells Counted 200
[2024-06-12 07:22] LABS: Tear Drop Cells Present
[2024-06-12] MEDS ORDERED: INSULIN ASPART (NovoLOG) 100 UNIT/ML VIAL SQ SCH (07:30)
--- NOTE | 2024-06-12 07:31 | CA ---
Transthoracic Echo Report Name: Blaze Douglas Age: 69 Gender: M : 1955 Exam Date: 06/11/2024 10:47 Exam Location: [place] [facility] Ht (in): 70 Wt (lb): 250 Ordering Physician: Donell Irving MD Attending/Referring Phys: [employer]ican Genesis Ca RDCS Procedure CPT: Indications: cardiac structural assessment Cardiac Hx: Technical Quality: Technically difficult study Contrast 1: Definity Total Dose (mL): 5 Contrast 2: Total Dose (mL): MEASUREMENTS (Male / Female) Normal Values 2D ECHO LV Diastolic Diameter PLAX 6.0 cm 4.2 - 5.9 / 3.9 - 5.3 cm LV Systolic Diameter PLAX 4.0 cm IVS Diastolic Thickness 0.7 cm 0.6 - 1.0 / 0.6 - 0.9 cm LVPW Diastolic Thickness 1.3 cm 0.6 - 1.0 / 0.6 - 0.9 cm LV Relative Wall Thickness 0.3 LV Diastolic Volume MOD BP 144.0 cm??? 67 - 155 / 56 - 104 cm??? LV Systolic Volume MOD BP 57.5 cm??? 22 - 58 / 19 - 49 cm??? LV Ejection Fraction MOD BP 60.1 % >= 55 % LV Cardiac Index MOD BP 3373.8 cm???/min???m??? LV Diastolic Volume MOD 4C 137.9 cm??? LV Systolic Volume MOD 4C 50.7 cm??? LV Ejection Fraction MOD 4C 63.3 % LV Cardiac Index MOD 4C 3405.7 cm???/min???m??? LV Diastolic Length 4C 8.7 cm LV Systolic Length 4C 7.2 cm LV Diastolic Volume MOD 2C 148.1 cm??? LV Systolic Volume MOD 2C 61.4 cm??? LV Ejection Fraction MOD 2C 58.5 % LV Cardiac Index MOD 2C 3384.2 cm???/min???m??? LV Diastolic Length 2C 8.5 cm LV Systolic Length 2C 6.7 cm LA Volume 59.4 cm??? 18 - 58 / 22 - 52 cm??? LA Volume Index 24.7 cm???/m??? 16 - 28 cm???/m??? DOPPLER AV Peak Velocity 175.7 cm/s AV Peak Gradient 12.3 mmHg AV Mean Velocity 127.2 cm/s AV Mean Gradient 7.1 mmHg AV Velocity Time Integral 28.3 cm LVOT Peak Velocity 122.1 cm/s LVOT Peak Gradient 6.0 mmHg LVOT Velocity Time Integral 18.5 cm MV Peak Velocity 158.3 cm/s MV Peak Gradient 10.0 mmHg MV Mean Velocity 95.0 cm/s MV Mean Gradient 4.1 mmHg MV Velocity Time Integral 38.0 cm MV Area PHT 3.0 cm??? Mitral E Point Velocity 147.6 cm/s Mitral A Point Velocity 65.2 cm/s Mitral E to A Ratio 2.3 MV Deceleration Time 253.3 ms MV E' Velocity 8.8 cm/s Mitral E to MV E' Ratio 16.8 FINDINGS Left Ventricle Left ventricular ejection fraction is estimated at 55-60 %. Mildly increased left ventricular diastolic diameter. Left ventricular wall thickness normal. No obvious regional wall motion abnormalities. Right Ventricle Normal right ventricular size and function. Unable to estimate the right ventricular systolic pressure. Right Atrium Normal right atrial size. Left Atrium Mildly increased left atrial volume. Mildly increased left atrial area. Mitral Valve Structurally normal mitral valve. Mitral annular calcification. No evidence for mitral valve prolapse. Mild mitral stenosis. Trace mitral regurgitation. Aortic Valve Aortic valve not well visualized. No aortic valve stenosis or regurgitation. Tricuspid Valve Structurally normal tricuspid valve. No tricuspid stenosis. Trace tricuspid regurgitation. Pulmonic Valve Pulmonic valve not well visualized. Pericardium No pericardial effusion. Aorta Aortic root and proximal ascending aorta not well visualized. CONCLUSIONS Technically difficult study for interpretation Normal LV systolic function Poorly visualized intracardiac valve Previewed by: Dr. Aditya Major MD (Electronically Signed) Final Date: 12 June 2024 07:31
--- NOTE | 2024-06-12 07:33 | XR ---
EXAMINATION TYPE: XR chest 1V portable DATE OF EXAM: 06/12/2024 5:26 AM COMPARISON: 06/11/2024 CLINICAL INDICATION: Male, 69 years old with history of mechanical ventilation, difficulty breathing TECHNIQUE: XR chest 1V portable view(s) obtained. FINDINGS: The heart size is normal. The pulmonary vasculature is normal. There is a left upper lobe consolidation which appears similar comparison. Right lower lobe consolida tion may be worsening.. Endotracheal tube tip is 5.9 cm above the marie. Nasogastric tube transverses the thorax. A central venous catheter tip is in the superior vena cava region. IMPRESSION: 1. Worsening right lower lobe consolidation. 2. Persistent left upper lobe infiltrate. 3. Lines and catheters discussed above [facility], , 06/12/2024 7:31 AM
[2024-06-12] MEDS: VANCOMYCIN 1,500 MG in SODIUM CHLORIDE 0.9% 500 ML 500 ML IVPB SCH (08:06)
[2024-06-12] MEDS: APIXABAN 5 MG TAB PO SCH (08:09)
[2024-06-12 08:17] LABS: ALT 20 U/L (4-49); AST 19 U/L (17-59); African American GFR (CKD) 26 (>60 ml/min/1.73 sqM); Albumin 2.6 g/dL (3.5-5.0); Alkaline Phosphatase 116 U/L (38-126); Anion Gap 11 mmol/L; Blood Urea Nitrogen 82 mg/dL (9-20); Carbon Dioxide 28 mmol/L (22-30); Chloride 102 mmol/L (98-107); Glucose 303 mg/dL (74-99); Non-African American GFR(CKD) 22 (>60 ml/min/1.73 sqM); Potassium 4.3 mmol/L (3.5-5.1); Sodium 141 mmol/L (137-145); Total Bilirubin 0.7 mg/dL (0.2-1.3); Total Protein 5.5 g/dL (6.3-8.2)
--- NOTE | 2024-06-12 08:18 | P.CRDCN ---
History of Present Illness Consult date: 06/12/24 History of present illness: History of Present Illness: The patient is a 69-year-old male who presented with symptoms of progressive dyspnea, diagnosed with pneumonia and influenza A, requiring mechanical ventilation. Cardiology consultation was requested because of atrial fibrillation. The patient is intubated and sedated. He has a history of atrial fibrillation, status post ablation in January 2024. He was in sinus mechanism on presentation and back in atrial fibrillation at this time with episode of rapid ventricle response. He is on vasopressors. He had an echocardiogram that showed a preserved systolic function, the study was technically difficult. The patient has been anticoagulated as an outpatient. Her chest x-ray shows severe infiltration bilaterally consistent with a pneumonia. Presentation he had evidence of acute renal injury and hypotension related to sepsis. He has been initiated on amiodarone and he is on vasopressin in addition to norepinephrine Medications: As an outpatient he is on Eliquis 5 mg twice a day, amlodipine 10 mg daily, metoprolol succinate 50 mg daily, Norvasc, losartan Review of Systems: Could not be obtained, the patient is intubated and sedated Physical Examination: 69-year-old male, intubated,Blood pressure 117/50, Heart rate 9220 Head: Normocephalic. Eyes: Sclerae nonicteric. Neck: Good carotid upstroke, no bruit, no jugular venous distention. Lungs: Decreased breath sounds bilaterally Heart: Irregular rate and rhythm, S1-S2, no S3, no rub. Systolic ejection murmur. Abdomen: Soft , positive bowel sounds no organomegaly. Extremities: +1 edema, intact distal pulses. Labs: Hemoglobin 11.6, WBC 20.8. pH 7.21 with a pCO2 of 73 and pO2 of 92. His potassium 4.4, BUN 82, creatinine 2.76. His renal function have worsened since admission. His pH was down to 7.02 on the . His chest x-ray is consistent with bilateral infiltrate EKG: Poor baseline with evidence of atrial fibrillation and nonspecific ST-T wave changes Impression: 1. Respiratory failure with bilateral pneumonia and influenza A requiring mechanical ventilation 2. Atrial fibrillation status post ablation in January 2024, rapid ventricular response, anticoagulated 3. Acute renal injury 4. Hypotension related to the sepsis Plan: 1. Start low-dose beta-angel 2. The rapid ventricle response is most likely related to the acute infectious process and respiratory failure 3. Follow renal functions 4. Wean pressors as tolerated 5. Depending on his progress further recommendations will be made, thank you for this consult we will follow with you. Past Medical History Past Medical History: Atrial Fibrillation, COPD, Hypertension Additional Past Medical History / Comment(s): History approximately fibrillation, post ablation, hypertension History of Any Multi-Drug Resistant Organisms: None Reported Past Surgical History: Heart Catheterization, Hernia Repair Additional Past Surgical History / Comment(s): Cardiac ablation for atrial fibrillation Past Anesthesia/Blood Transfusion Reactions: Unable to Obtain Past Psychological History: Unable to Obtain Smoking Status: Former smoker Past Alcohol Use History: Unable to Obtain Past Drug Use History: Unable to Obtain - Past Family History Father Additional Family Medical History / Comment(s): enlarged heart Mother Additional Family Medical History / Comment(s): skipped heart beat Medications and Allergies Home Medications Medication Instructions Recorded Confirmed Type Apixaban [Eliquis] 5 mg PO BID 02/15/22 02/01/24 History Losartan Potassium 100 mg PO DAILY 02/15/22 02/01/24 History Meloxicam [Mobic] 15 mg PO DAILY PRN 02/15/22 01/30/24 History Omeprazole 40 mg PO DAILY 02/15/22 02/01/24 History amLODIPine [Norvasc] 10 mg PO DAILY 05/12/22 02/01/24 History traMADol HCL 50 mg PO Q6H PRN 05/12/22 01/30/24 History Metoprolol Succinate (ER) [Toprol 50 mg PO DAILY #90 tab 02/01/24 Rx XL] Losartan Potassium [Cozaar] 100 mg PO DAILY 06/10/24 06/10/24 History Meloxicam [Mobic] 15 mg PO DAILY PRN 06/10/24 06/10/24 History Metoprolol Succinate (ER) [Toprol 50 mg PO DAILY 06/10/24 06/10/24 History Xl] Omeprazole [PriLOSEC] 40 mg PO DAILY 06/10/24 06/10/24 History amLODIPine [Norvasc] 10 mg PO DAILY PRN 06/10/24 06/10/24 History traMADol HCl [Ultram] 100 mg PO BID PRN 06/10/24 06/10/24 History Allergies Allergy/AdvReac Type Severity Reaction Status Date / Time No Known Allergies Allergy Verified 06/11/24 08:23 Physical Exam Vitals: Vital Signs Temp Pulse Resp BP Pulse Ox FiO2 06/12/24 07:57 85 06/12/24 07:49 118 H 06/12/24 07:48 80 06/12/24 07:30 125 H 34 H 93 L 06/12/24 07:15 125 H 34 H 94 L 06/12/24 07:00 113 H 34 H 93 L 06/12/24 06:45 112 H 34 H 93 L 06/12/24 06:30 126 H 34 H 94 L 06/12/24 06:15 108 H 34 H 94 L 06/12/24 06:00 111 H 34 H 94 L 06/12/24 05:45 112 H 34 H 94 L 06/12/24 05:41 80 06/12/24 05:30 116 H 34 H 94 L 06/12/24 05:15 107 H 34 H 94 L 06/12/24 05:00 111 H 34 H 94 L 06/12/24 04:45 120 H 34 H 94 L 06/12/24 04:30 108 H 34 H 94 L 06/12/24 04:15 114 H 34 H 95 06/12/24 04:00 98.9 F 113 H 34 H 94 L 80 06/12/24 03:45 121 H 34 H 94 L 06/12/24 03:30 128 H 34 H 94 L 06/12/24 03:15 128 H 34 H 94 L 06/12/24 03:00 125 H 34 H 94 L 06/12/24 02:45 160 H 34 H 94 L 06/12/24 02:30 118 H 34 H 94 L 06/12/24 02:15 133 H 34 H 94 L 06/12/24 02:00 116 H 34 H 94 L 06/12/24 01:45 131 H 34 H 95 06/12/24 01:30 101 H 34 H 95 06/12/24 01:15 104 H 34 H 94 L 06/12/24 01:00 101 H 34 H 94 L 06/12/24 00:45 97 34 H 94 L 06/12/24 00:30 101 H 34 H 94 L 06/12/24 00:15 98 34 H 95 80 06/12/24 00:00 98.9 F 102 H 34 H 95 80 02/18/25 23:45 108 H 34 H 94 L 02/18/25 23:30 105 H 34 H 94 L 0218 23:15 101 H 34 H 95 0218 23:00 102 H 34 H 95 021825 22:45 102 H 34 H 95 18 22:30 105 H 34 H 95 02/18/25 22:15 103 H 34 H 94 L 18 22:00 101 H 34 H 94 L 0218 21:45 102 H 34 H 94 L 0218 21:36 105 H 0218 21:30 103 H 34 H 94 L 0218 21:26 103 H 80 0218 21:15 102 H 34 H 94 L 18 21:00 101 H 34 H 94 L 18 20:45 101 H 34 H 94 L 18 20:30 103 H 34 H 94 L 18 20:15 104 H 34 H 94 L 18 20:00 99.2 F 103 H 34 H 95 80 18 19:45 103 H 34 H 95 18/25 19:30 103 H 34 H 95 18/25 19:15 105 H 34 H 95 18 19:00 105 H 34 H 95 1825 18:45 105 H 34 H 95 18 18:30 105 H 34 H 95 18/25 18:15 105 H 34 H 95 18 18:00 107 H 34 H 95 1825 17:45 105 H 34 H 95 18/25 17:30 105 H 34 H 95 0218/25 17:15 108 H 34 H 95 02/18/25 17:00 106 H 34 H 95 18/25 16:45 107 H 34 H 95 18/25 16:30 105 H 34 H 95 0218/25 16:15 105 H 34 H 95 /18/25 16:00 98.6 F 103 H 33 H 95 100 02/18/25 15:54 105 H 0218/25 15:51 80 02/18/25 15:45 105 H 35 H 96 02/18/25 15:44 80 02/18/25 15:40 105 H 06/11/24 15:30 105 H 34 H 96 06/11/24 15:15 104 H 34 H 96 06/11/24 15:00 104 H 34 H 96 06/11/24 14:45 102 H 34 H 96 06/11/24 14:30 103 H 34 H 96 06/11/24 14:15 103 H 34 H 95 06/11/24 14:00 102 H 34 H 95 06/11/24 13:45 101 H 34 H 96 06/11/24 13:30 101 H 34 H 96 06/11/24 13:15 101 H 34 H 96 06/11/24 13:00 101 H 34 H 96 06/11/24 12:45 102 H 34 H 96 06/11/24 12:30 99 34 H 95 06/11/24 12:25 95 06/11/24 12:15 93 34 H 95 06/11/24 12:14 80 06/11/24 12:00 97.9 F 94 34 H 95 80 06/11/24 11:56 80 06/11/24 11:30 95 34 H 95 06/11/24 11:00 90 34 H 95 06/11/24 10:30 93 34 H 95 06/11/24 10:00 89 32 H 143/53 94 L 06/11/24 09:38 80 06/11/24 09:37 80 06/11/24 09:30 92 34 H 97 06/11/24 09:00 94 32 H 97 06/11/24 08:30 93 32 H 96 Intake and Output 06/11/24 06/12/24 06/12/24 22:59 06:59 14:59 Intake Total 2550.339 1982.317 136 Output Total 185 330 30 Balance 2365.339 1652.317 106 Intake: IV 874 824 103 Cefepime 2 gm In Sodium 50 Chloride 0.9% 50 ml @ 100 mls/hr IVPB Q12H [facility] Rx# :[id number] Dextrose 5% in Water 1, 800 800 100 000 ml @ 100 mls/hr IV . [id number] [facility] with Sodium Bicarb (1 Meq/ml) 150 ml Rx#:[id number] Pressure Bag (0.9 sodium 24 24 3 chloride) Intake, IV Titration 1397.339 834.317 Amount Cisatracurium 200 mg In 138 75.839 Sodium Chloride 0.9% 180 ml @ 1 MCG/KG/MIN 5.987 mls/hr IV .Q24H [facility] Rx#: [id number] Norepinephrine 8 mg In 1032.000 508.187 Sodium Chloride 0.9% 250 ml @ 0.03 MCG/KG/MIN 6. 589 mls/hr IV .Q24H [facility] Rx#:[id number] Vasopressin 20 unit In 51 51 Sodium Chloride 0.9% 50 ml @ 0.03 UNITS/MIN 4.59 mls/hr IV .Q11H7M [facility] Rx# :[id number] propofoL 1,000 mg In 176.339 199.291 Empty Bag 1 bag @ 15 MCG/ KG/MIN 8.981 mls/hr IV . Q11H9M [facility] Rx#:[id number] Tube Feeding 219 264 33 Other 60 60 Output: Urine 185 330 30 Other: Voiding Method Indwelling Catheter Indwelling Catheter Weight 119.4 kg ABP, PAP, CO, CI - Last 8 Hours Arterial Blood Pressure 117/52 Arterial Blood Pressure 116/52 Arterial Blood Pressure 117/52 Arterial Blood Pressure 113/51 Arterial Blood Pressure 117/56 Arterial Blood Pressure 122/57 Arterial Blood Pressure 123/57 Arterial Blood Pressure 122/58 Arterial Blood Pressure 124/58 Arterial Blood Pressure 123/57 Arterial Blood Pressure 106/49 Arterial Blood Pressure 112/50 Arterial Blood Pressure 121/53 Arterial Blood Pressure 113/50 Arterial Blood Pressure 117/51 Arterial Blood Pressure 121/53 Arterial Blood Pressure 130/55 Arterial Blood Pressure 118/52 Arterial Blood Pressure 112/52 Arterial Blood Pressure 119/53 Arterial Blood Pressure 117/54 Arterial Blood Pressure 115/51 Arterial Blood Pressure 116/49 Arterial Blood Pressure 117/49 Arterial Blood Pressure 118/51 Arterial Blood Pressure 124/54 Arterial Blood Pressure 122/54 Arterial Blood Pressure 122/51 Arterial Blood Pressure 119/50 Results 06/12/24 05:10 06/12/24 03:10 Cardiac Enzymes 06/11/24 06/12/24 Range/Units 04:45 03:10 AST 32 23 (17-59) U/L CBC 06/11/24 06/12/24 Range/Units 04:45 05:10 WBC 26.5 H 20.8 H (3.8-10.6) k/uL RBC 3.78 L (4.30-5.90) m/uL Hgb 11.6 L (13.0-17.5) gm/dL Hct 35.4 L (39.0-53.0) % Plt Count 209 (150-450) k/uL Comprehensive Metabolic Panel 06/11/24 06/12/24 Range/Units 04:45 03:10 Sodium 140 140 (137-145) mmol/L Potassium 5.4 H 4.4 (3.5-5.1) mmol/L Chloride 104 101 (98-107) mmol/L Carbon Dioxide 28 30 (22-30) mmol/L BUN 66 H 82 H (9-20) mg/dL Creatinine 2.14 H 2.76 H (0.66-1.25) mg/dL Glucose 262 H 294 H (74-99) mg/dL Calcium 7.0 L 6.6 L (8.4-10.2) mg/dL AST 32 23 (17-59) U/L ALT 24 19 (4-49) U/L Alkaline Phosphatase 117 128 H (38-126) U/L Total Protein 5.5 L 5.7 L (6.3-8.2) g/dL Albumin 2.6 L 2.6 L (3.5-5.0) g/dL Current Medications Generic Name Dose Route Start Last Admin Trade Name Freq PRN Reason Stop Dose Admin Albuterol/Ipratropium 3 ml 06/10/24 15:41 06/12/24 07:48 Ipratropium-Albuterol 3 Ml Neb INHALATION 3 ml RT-Q4H PRN Administration Shortness Of Breath Or Wheezing Apixaban 5 mg 06/12/24 09:00 Apixaban 5 Mg Tab PO BID [facility] Protocol Artificial Tears 2 drops 06/12/24 04:00 Artificial Tears-Hypromellose Drops 15 Ml Btl BOTH EYES QID PRN Dry Eye(s) Chlorhexidine Gluconate 15 ml 06/11/24 09:00 06/11/24 20:33 Chlorhexidine Gluconate 15 Ml Cup MUCOUS MEM 15 ml BID [facility] Administration Dextrose/Water 25 ml 06/10/24 16:34 Dextrose 50% Syringe 50 Ml IVP PER PROTOCOL PRN Hypoglycemia Protocol Dextrose/Water 50 ml 06/10/24 16:34 Dextrose 50% Syringe 50 Ml IVP PER PROTOCOL PRN Hypoglycemia Protocol Azithromycin 500 mg/ Sodium 250 mls @ 250 mls/hr 06/11/24 09:00 06/11/24 10:51 Chloride IVPB 06/12/24 09:59 250 mls/hr DAILY [facility] Administration Protocol Cefepime HCl 2 gm/ Sodium 100 mls @ 25 mls/hr 06/10/24 16:00 06/12/24 03:15 Chloride IVPB 25 mls/hr Q12H [facility] Administration Propofol 1,000 mg/ IV Solution 100 mls @ 8.981 mls/hr 06/10/24 16:00 06/12/24 03:19 IV 50 mcg/kg/min .Q11H9M [facility] 29.937 mls/hr Administration Protocol 15 MCG/KG/MIN Cisatracurium Besylate 200 mg/ 200 mls @ 5.987 mls/hr 06/10/24 18:00 06/12/24 03:01 Sodium Chloride IV 1 mcg/kg/min .Q24H [facility] 5.987 mls/hr Titration Protocol 1 MCG/KG/MIN Vasopressin 20 unit/ Sodium 51 mls @ 4.59 mls/hr 06/10/24 23:15 06/12/24 06:30 Chloride IV 0.04 units/min .Q11H7M [facility] 6.12 mls/hr Administration Protocol 0.03 UNITS/MIN Sodium Bicarbonate 150 ml/ 1,150 mls @ 100 mls/hr 06/10/24 23:15 06/11/24 20:33 Dextrose/Water IV 100 mls/hr .[id number] [facility] Administration Norepinephrine Bitartrate 8 mg 258 mls @ 6.589 mls/hr 06/11/24 09:15 06/12/24 06:14 / Sodium Chloride IV 0.51 mcg/kg/min .Q24H [facility] 112.007 mls/hr Titration Protocol 0.03 MCG/KG/MIN Vancomycin HCl 1,500 mg/ 500 mls @ 167 mls/hr 06/12/24 08:00 Sodium Chloride IVPB Q24H [facility] Amiodarone HCl 450 mg/ 250 mls @ 16.667 mls/hr 06/12/24 07:45 Dextrose/Water IV 06/13/24 01:44 .Q15H [facility] Protocol 0.5 MG/MIN Insulin Aspart 0 unit 06/12/24 12:00 Insulin Aspart (Novolog) 100 Unit/Ml Vial SQ Q6HR [facility] Protocol Insulin Detemir 12 unit 06/12/24 21:00 Insulin Detemir (Levemir) 100 Unit/Ml Syr SQ BID@0700,2100 [facility] Methylprednisolone Sodium Succinate 60 mg 06/10/24 19:00 06/12/24 05:38 Methylprednisolone Sod Succi 125 Mg/2 Ml Vial IV 60 mg Q6HR [facility] Administration Naloxone HCl 0.2 mg 06/10/24 15:41 Naloxone 0.4 Mg/Ml 1 Ml Vial IV Q2M PRN Opioid Reversal Oseltamivir Phosphate 30 mg 06/11/24 09:30 06/11/24 20:33 Oseltamivir 60 Mg/10 Ml Oral Syringe PO 06/15/24 21:01 30 mg Q12HR [facility] Administration Protocol Pantoprazole Sodium 40 mg 06/11/24 09:00 06/11/24 08:15 Pantoprazole 40 Mg/10 Ml Vial IVP 40 mg DAILY [facility] Administration Intake and Output 06/11/24 06/12/24 06/12/24 22:59 06:59 14:59 Intake Total 2550.339 1982.317 136 Output Total 185 330 30 Balance 2365.339 1652.317 106 Intake: IV 874 824 103 Cefepime 2 gm In Sodium 50 Chloride 0.9% 50 ml @ 100 mls/hr IVPB Q12H [facility] Rx# :[id number] Dextrose 5% in Water 1, 800 800 100 000 ml @ 100 mls/hr IV . [id number] [facility] with Sodium Bicarb (1 Meq/ml) 150 ml Rx#:[id number] Pressure Bag (0.9 sodium 24 24 3 chloride) Intake, IV Titration 1397.339 834.317 Amount Cisatracurium 200 mg In 138 75.839 Sodium Chloride 0.9% 180 ml @ 1 MCG/KG/MIN 5.987 mls/hr IV .Q24H [facility] Rx#: [id number] Norepinephrine 8 mg In 1032.000 508.187 Sodium Chloride 0.9% 250 ml @ 0.03 MCG/KG/MIN 6. 589 mls/hr IV .Q24H [facility] Rx#:[id number] Vasopressin 20 unit In 51 51 Sodium Chloride 0.9% 50 ml @ 0.03 UNITS/MIN 4.59 mls/hr IV .Q11H7M [facility] Rx# :[id number] propofoL 1,000 mg In 176.339 199.291 Empty Bag 1 bag @ 15 MCG/ KG/MIN 8.981 mls/hr IV . Q11H9M [facility] Rx#:[id number] Tube Feeding 219 264 33 Other 60 60 Output: Urine 185 330 30 Other: Voiding Method Indwelling Catheter Indwelling Catheter Weight 119.4 kg 06/12/24 05:10 06/12/24 03:10
[2024-06-12 08:25] LABS: Calcium 6.2 mg/dL (8.4-10.2)
[2024-06-12] MEDS: AMIODARONE 450 MG in DEXTROSE 5% IN WATER 250 ML IV SCH (08:38)
[2024-06-12] MEDS: METOPROLOL TARTRATE 25 MG TAB PO SCH (09:34)
[2024-06-12] MEDS ORDERED: VANCOMYCIN IV PER PHARMACY 1 EACH MISC MISCELLANE PRN (09:59)
[2024-06-12] MEDS ORDERED: HEPARIN SODIUM 1,000 UN/ML (10ML VL) IV PRN (10:32)
[2024-06-12] MEDS ORDERED: HEPARIN SOD,PORK IN 0.45% NACL 25,000 UNIT in 0.45% NACL 1 250ML.BAG IV SCH ×2 (10:45→11:15)
[2024-06-12 11:11] LABS: Glucose,Whole Blood 273 mg/dL (70-110)
[2024-06-12] MEDS: INSULIN ASPART (NovoLOG) 100 UNIT/ML VIAL SQ SCH (11:27)
[2024-06-12 12:17] LABS: Partial Thromboplastin Time 23.9 sec (22.0-30.0); Prothrombin Time 11.4 sec (10.0-12.5)
--- NOTE | 2024-06-12 14:47 | P.PN ---
Subjective Progress Note Date: 06/12/24 Hospital Course: Patient is a 69-year-old male with past medical history of A-fib status post a blation, hypertension. History obtained from chart review. Per ER note, EMS was called by patient's family for shortness of breath, family reported that multiple family members were sick in the house. They noted his SpO2 to be in 60s on placed him on CPAP with no improvement and he continued to breathe rapidly, spiking fever ER course: Patient was febrile Patient was placed on BiPAP for hypoxia, remained tachypneic and in respiratory distress despite BiPAP. Patient spent 1-1/2-hour on BiPAP with no improvement in his respiratory status, he is tachypneic in 50s, satting in mid to high 80s, decision was made to intubate, no family members available to obtain consent,. Intubated on 06/10, sedated, paralyzed, transferred to ICU, started on treatment for acute hypoxic respiratory failure secondary to bilateral pneumonia, influenza A pneumonia, cefepime, vancomycin, was alternating SOT 06/10. Patient was additionally started on IV Solu-Medrol, sputum and blood cultures obtained, pending. Repeat chest x-ray showed diffuse pulmonary infiltrates worsening from yesterday, blood gases showed severe acidosis with pH of 7.05, patient was started on bicarb drip overnight, his blood pressure dropped and he was started on the BiPAP but required up titration for better BP control., Later vas opressin was initiated. Patient was noted to have very low urine output, worsening kidney function. Nephrology consulted, recommended to continue bicarb drip, IV hydration, kidney ultrasound and UA ordered, showed no obstruction or hydronephrosis. 06/12 bicarb drip discontinued, patient continued on norepinephrine, 0.58. Blood cultures growing strep pneumo, antibiotics de-escalated to ceftriaxone 2 g daily. Cardiology consulted for A-fib with RVR, patient was on amiodarone drip, will be switched to oral amiodarone starting 06/13. He is on heparin drip. Pertinent Imaging: Chest x-ray with left upper and right lower lobe pneumonia, appears worse compared to yesterday Subjective: Intubated, sedated, paralyzed, patient's brother and fianc at bedside updated on patient's condition, treatment plan, all questions answered Vitals Signs Reviewed. General: [Ill-appearing, intubated, sedated, paralyzed Derm: [warm], [dry] Head: [atraumatic], [normocephalic], [symmetric] Eyes: [EOMI], [no lid lag], [anicteric sclera] Mouth: [no lip lesion], [mucus membranes moist], ETT, OG tube Cardiovascular: [S1S2 reg], [no murmur] Lungs: Diminished breath sounds, crackles left more than right Abdominal: [soft], [ nontender to palpation], [no guarding], [no appreciable organomegaly] Ext: [no gross muscle atrophy], [no edema], [no contractures] Neuro: [ CN II-XI grossly intact], [no focal neuro deficits] Psych: [Alert], [oriented], [appropriate affect] Data Reviewed Today: Pertinent Labs: Leukocytosis trending down 20.8, hemoglobin 11.6, platelet count 209, ABG with pH of 7.21, pCO2 73, pO2 92, sodium, potassium, chloride normal creatinine uptrending 2.79, blood glucoses uncontrolled, ionized calcium 3.8 Urine output 970 cc 06/11 Assessment and Plan: septic shock secondary to severe bilateral community-acquired strep pneumo pneumonia, influenza A infection Strep pneumo bacteremia Acute hypoxic respiratory failure secondary to above requiring intubation 06/10/2024 REspiratory acidosis -Continue mechanical ventilation and sedation per ICU, patient did not tolerate paralytic holiday, resumed on Nimbex 06/12 -Continue ceftriaxone 2 g daily, antibiotics SOT 06/10, continue vancomycin, MRSA swab pending -Follow-up sputum and blood cultures, growing strep pneumo -Follow-up CBC and CMP -ICU consulted -Hypoglycemia protocol SSI, Accu-Cheks every 6 hours, added Levemir, increased to 12 units twice daily -Continue DuoNebs: 4 hours -continue bicarb drip, follow up ABG, vent adjustments per ICU EMEKA, oliguric likely secondary to ATN in the settings of hypotension and sepsis Hematuria -bicarb drip discontinued, monitor BMP -Creatinine is rising -Nephrology following -UA reviewed, kidney ultrasound without hydronephrosis or obstruction -Stress ulcer prophylaxis with IV Protonix Persistent A-fib status post ablation : Continue heparin drip, stop amiodarone drip, start amiodarone p.o. 400 twice daily, started on Lopressor 25 twice daily history of hypertension ,: On amlodipine 10, losartan 100, , will hold for now due to hypotension requiring pressors, started on metoprolol 25 twice daily by cardiology for A-fib control GERD: On home omeprazole 40 daily, IV Protonix Left forehead lipoma -CT head done, no acute intracranial process, left forehead abnormality is most compatible with lipoma, no hematoma. No fracture, moderate multilevel degenerative disc disease Obesity CODE STATUS:default full code DVT prophylaxis: Heparin drip Anticipated discharge date: tbd Anticipated discharge place: tbd Objective - Vital Signs Vital signs: Vital Signs Temp 98.7 F 06/12/24 12:00 Pulse 89 06/12/24 14:15 Resp 34 H 06/12/24 14:00 BP 159/59 06/11/24 22:45 Pulse Ox 91 L 06/12/24 14:15 FiO2 80 06/12/24 12:00 Intake & Output 06/11/24 06/12/24 06/12/24 18:59 06:59 18:59 Intake Total 4130.372 3034.300 2888.377 Output Total 450 425 355 Balance 3680.372 2609.300 2533.377 Weight 115.8 kg 119.4 kg Intake: IV 1589 1133 1424 Cefepime 2 gm In Sodium 50 100 Chloride 0.9% 50 ml @ 100 mls/hr IVPB Q12H [facility]ACQU[facility] Rx# :[id number] Dextrose 5% in Water 1, 1300 1100 800 000 ml @ 100 mls/hr IV . [id number] JACQUES with Sodium Bicarb (1 Meq/ml) 150 ml Rx#:[id number] Pressure Bag (0.9 sodium 39 33 24 chloride) Sodium Chloride 0.9% 1, 200 000 ml @ 100 mls/hr IV . Q10H JACQUES Rx#:[id number] Vancomycin 1,500 mg In 500 Sodium Chloride 0.9% 500 ml 500 ml @ 167 mls/hr IVPB ONCE ONE Rx#: [id number] Intake, IV Titration 2301.372 1975.815 1647.377 Amount Cisatracurium 200 mg In 138 75.839 42.308 Sodium Chloride 0.9% 180 ml @ 1 MCG/KG/MIN 5.987 mls/hr IV .Q24H JACQUES Rx#: [id number] Norepinephrine 4 mg In 445.901 Sodium Chloride 0.9% 250 ml @ 0.03 MCG/KG/MIN 11. 406 mls/hr IV .[id number] J[facility]QU[facility] Rx#:[id number] Norepinephrine 8 mg In 1395.620 894.831 787.470 Sodium Chloride 0.9% 250 ml @ 0.03 MCG/KG/MIN 6. 589 mls/hr IV .Q24H [facility]ACQU[facility] Rx#:[id number] Vasopressin 20 unit In 51 102 Sodium Chloride 0.9% 50 ml @ 0.03 UNITS/MIN 4.59 mls/hr IV .Q11H7M [facility] Rx# :[id number] propofoL 1,000 mg In 270.851 375.630 190.599 Empty Bag 1 bag @ 15 MCG/ KG/MIN 8.981 mls/hr IV . Q11H9M [facility]ACQU[facility] Rx#:[id number] Oral 120 Tube Feeding 180 363 264 Other 60 90 60 Output: Gastric Drainage 250 Urine 200 425 355 Other: Voiding Method Indwelling Catheter Indwelling Catheter Indwelling Catheter ABP, PAP, CO, CI - Last Documented Arterial Blood Pressure 133/50 - Labs CBC & Chem 7: 06/12/24 05:10 06/12/24 05:10 Labs: Abnormal Lab Results - Last 24 Hours (Table) 06/11/24 06/11/24 06/12/24 Range/Units 17:31 23:14 03:09 WBC (3.8-10.6) k/uL RBC (4.30-5.90) m/uL Hgb (13.0-17.5) gm/dL Hct (39.0-53.0) % RDW (11.5-15.5) % Neutrophils # (Manual) (1.3-7.7) k/uL Lymphocytes # (Manual) (1.0-4.8) k/uL Metamyelocytes # (Man) (0) k/uL ABG pH 7.21 L (7.35-7.45) ABG pCO2 75 H* (35-45) mmHg ABG HCO3 30 H (21-25) mmol/L ABG Total CO2 32 H (19-24) mmol/L Hemoglobin 11.5 L (13.0-17.5) gm/dL BUN (9-20) mg/dL Creatinine (0.66-1.25) mg/dL Glucose (74-99) mg/dL POC Glucose (mg/dL) 307 H 277 H (70-110) mg/dL Calcium (8.4-10.2) mg/dL Ionized Calcium [place] (4.5-5.3) mg/dL Magnesium (1.6-2.3) mg/dL Alkaline Phosphatase (38-126) U/L Total Protein (6.3-8.2) g/dL Albumin (3.5-5.0) g/dL 06/12/24 06/12/24 06/12/24 Range/Units 03:10 05:10 05:10 WBC 20.8 H (3.8-10.6) k/uL RBC 3.78 L (4.30-5.90) m/uL Hgb 11.6 L (13.0-17.5) gm/dL Hct 35.4 L (39.0-53.0) % RDW 15.7 H (11.5-15.5) % Neutrophils # (Manual) 19.76 H (1.3-7.7) k/uL Lymphocytes # (Manual) 0.62 L (1.0-4.8) k/uL Metamyelocytes # (Man) 0.21 H (0) k/uL ABG pH (7.35-7.45) ABG pCO2 (35-45) mmHg ABG HCO3 (21-25) mmol/L ABG Total CO2 (19-24) mmol/L Hemoglobin (13.0-17.5) gm/dL BUN 82 H 82 H (9-20) mg/dL Creatinine 2.76 H 2.79 H (0.66-1.25) mg/dL Glucose 294 H 303 H (74-99) mg/dL POC Glucose (mg/dL) (70-110) mg/dL Calcium 6.6 L 6.2 L* (8.4-10.2) mg/dL Ionized Calcium [place] (4.5-5.3) mg/dL Magnesium 3.2 H (1.6-2.3) mg/dL Alkaline Phosphatase 128 H (38-126) U/L Total Protein 5.7 L 5.5 L (6.3-8.2) g/dL Albumin 2.6 L 2.6 L (3.5-5.0) g/dL 06/12/24 06/12/24 06/12/24 Range/Units 05:18 05:19 11:09 WBC (3.8-10.6) k/uL RBC (4.30-5.90) m/uL Hgb (13.0-17.5) gm/dL Hct (39.0-53.0) % RDW (11.5-15.5) % Neutrophils # (Manual) (1.3-7.7) k/uL Lymphocytes # (Manual) (1.0-4.8) k/uL Metamyelocytes # (Man) (0) k/uL ABG pH 7.21 L (7.35-7.45) ABG pCO2 73 H* (35-45) mmHg ABG HCO3 29 H (21-25) mmol/L ABG Total CO2 31 H (19-24) mmol/L Hemoglobin 11.4 L (13.0-17.5) gm/dL BUN (9-20) mg/dL Creatinine (0.66-1.25) mg/dL Glucose (74-99) mg/dL POC Glucose (mg/dL) 327 H 273 H (70-110) mg/dL Calcium (8.4-10.2) mg/dL Ionized Calcium [place] (4.5-5.3) mg/dL Magnesium (1.6-2.3) mg/dL Alkaline Phosphatase (38-126) U/L Total Protein (6.3-8.2) g/dL Albumin (3.5-5.0) g/dL 06/12/24 Range/Units 11:11 WBC (3.8-10.6) k/uL RBC (4.30-5.90) m/uL Hgb (13.0-17.5) gm/dL Hct (39.0-53.0) % RDW (11.5-15.5) % Neutrophils # (Manual) (1.3-7.7) k/uL Lymphocytes # (Manual) (1.0-4.8) k/uL Metamyelocytes # (Man) (0) k/uL ABG pH (7.35-7.45) ABG pCO2 (35-45) mmHg ABG HCO3 (21-25) mmol/L ABG Total CO2 (19-24) mmol/L Hemoglobin (13.0-17.5) gm/dL BUN (9-20) mg/dL Creatinine (0.66-1.25) mg/dL Glucose (74-99) mg/dL POC Glucose (mg/dL) (70-110) mg/dL Calcium (8.4-10.2) mg/dL Ionized Calcium [place] 3.8 L (4.5-5.3) mg/dL Magnesium (1.6-2.3) mg/dL Alkaline Phosphatase (38-126) U/L Total Protein (6.3-8.2) g/dL Albumin (3.5-5.0) g/dL Microbiology - Last 24 Hours (Table) 06/10/24 17:19 Nasal Screen MRSA/MSSA - Final Nasal Swab 06/10/24 17:10 Gram Stain - Preliminary Sputum Sputum Culture - Preliminary Streptococcus pneumoniae Natalie albicans 06/10/24 14:04 Blood Culture Gram Stain - Preliminary Blood Blood Culture - Preliminary Streptococcus pneumoniae Staphylococcus hominis Molecular ID
--- NOTE | 2024-06-12 15:45 | P.PN ---
Subjective Progress Note Date: 06/12/24 69-year-old male patient came into the emergency department for shortness of breath. According to the significant other, the patient was sick approximately a week ago and his condition has been progressively getting worse. The patient has been falling. He has been having difficulties in keeping himself up and moving around over the past 24 hours. Based on that, he came into the emergency department. His initial pulse ox was 60% and he was placed on a BiPAP and rapidly following that, the patient was intubated and placed on the mechanical ventilator. Chest x-ray at time of admission showed extensive pneumonia with left upper lobe consolidation and air bronchograms and bibasilar pulmonary inf iltrates. Patient tested positive for influenza A. Postintubation, the patient's blood gases showed a pH of 7.36 with a pCO2 of 43 and pO2 of 60. Nevertheless, by the time he arrived to the ICU, the patient was again hypoxic with a pulse ox of 78%. Necessary ventilator changes were done and currently the patient is in a rate of 26, tidal volume of 375, PEEP of 24 with an FiO2 of 100% and expiratory pause of 0.2 ms. The blood gas showed a pH of 7.16 with a pCO2 of 77 and pO2 of 66. Triple-lumen catheter was established in the left IJ. Arterial line was also established. The patient is currently on Tamiflu. He was also started on broad-spectrum antibiotics utilizing a combination of c efepime Zithromax and vancomycin. Started on systemic steroids. Hemodynamically stable. No hypotension. Cardiac rhythm is sinus. According to the significant other, he has history of paroxysmal atrial fibrillation and the patient has undergone ablation. Cardiac rhythm is sinus. He also has hy pertension. He is a former smoker. Does not utilize any form of oxygen therapy or inhalers on outpatient basis. No history of bronchial asthma. No history of COPD. No history of any congestion or heart failure. The white cell count of 15.3 with hemoglobin 15.8 and a platelet count of 265. Normal coagulation profile. BUN is 63 with a creatinine 1.42 and a sodium levels at 140 with a potassium level of 4.5. Initial lactic acid level was at 3.8 and dropped down to 2.0. The patient is currently on normal saline at rate of 100 cc an hour. Furthermore, he is sedated with propofol and paralytics with Bumex. In the intensive care unit. 06/11/2024, the patient is being seen for a follow-up. This morning, the patient remains on propofol running at 50 mcg/kg/min and the patient is also paralyzed with Nimbex at 1 mcg/kg/h. Remains on assist-control mode of mechanical ventilation. Rate is 32 with a tidal volume of 400, FiO2 is 100% with a PEEP of 24. Morning blood gases showed a pH of 7.05 with a pCO2 being more than 98 and pO2 was 102. Chest x-ray shows diffuse bilateral pulmonary infiltrates, slightly worse compared to yesterday. Hemodynamically, the patient was given a total of 3 L of IV fluids. Started on bicarb infusion which is running at 100 cc an hour. Patient is on norepinephrine running at 0.5 mcg/kg/min and vasopressin at 0.04 units. Urine output is extremely low almost absent and the patient has developed an acute kidney injury. Overall fluid balance is +6.3 L over the past 24 hours. The white cell count of 27 with a hemoglobin 12.1 and a platelet count of 311. Sodium is at 140, potassium is at 5.4, chloride 104 and bicarb is 28. BUN 66 with a creatinine of 2.1. Based on the morning blood gases, I dropped the PEEP down to 20, I removed the inspiratory pause. I brought up the tidal volume to 450 and increase the respirate up to 34. Most recent peak airway pressure is 37. Cervical pressure is 33. The subsequent blood gas obtained showed a pH of 7.11 with a pCO2 of 88 and a pO2 of 138. Based on that, the PEEP was dropped down to 18. The patient is currently on a tidal volume of 450 with a respiratory rate of 34. FiO2 was dropped down to 80%. The patient will be started on enteral feeding for nutritional support. Afebrile. Remains on broad-spectrum antibiotics. The patient on a combination of cefepime, Zithromax and vancomycin. The patient is also on Tamiflu. The patient on IV Solu-Medrol. 06/12/2024, the patient is being seen for a follow-up. Remains intubated on mechanical ventilator. Remains sedated and paralyzed. The patient is currently on propofol running at 50 mcg/kg/min and the patient is also on Nimbex at 1 mcg/kg/min. The patient remains on mechanical ventilator, assist-control mode at rate of 34, tidal volume of 450, FiO2 of 80% with a PEEP of 18. pH is 7.21 with a pCO2 of 73 and pO2 of 92. Peak airway pressure 37 in the setting of a pressure of 31. The patient remains in atrial fibrillation. The patient remains on amiodarone drip which is running at 0.5 mg/min. Patient remains on pressors. Patient is on norepinephrine at 0.5 mcg/kg/min and vasopressin 0.04 units. Urine output is in order of 20 to 30 cc an hour. The patient is in a positive fluid balance. The patient remains on a bicarb drip at rate of 100 cc an hour. He is receiving enteral feeding for nutritional support with vital HP at rate of 33 cc an hour. Noted his blood cultures came back positive for streptococcal pneumoniae and a sputum sample was also positive for Streptococcus and the patient has a pneumococcal pneumonia on top of his influenza A infection. The follow-up chest x-ray from today shows extensive bilateral consolidation there is worsening in the right lower lobe consolidation and persistent left upper lobe pulmonary infiltrate. The patient remains on a combination of cefepime, Zithromax and vancomycin. The patient remains on Tamiflu. The patient remains on IV Solu-Medrol. The patient remains on Levemir 12 units twice daily and NovoLog/scale coverage. The patient remains on IV Solu-Medrol.Blood work from today shows a WBC count of 20.8, hemoglobin 11.6 and a platelet count of 2 9. Patient also has a sodium level of 141, potassium level of 4.3, BUN is 82 with a creatinine of 2.7 chloride is 102 with a bicarb level of 28. Calcium levels at 6.2, ionized calcium is at 3.8, low. Magnesium is at 3.2. LFTs are normal. Objective - Vital Signs Vital signs: Vital Signs Temp 98.9 F 06/12/24 04:00 Pulse 85 06/12/24 07:57 Resp 34 H 06/12/24 07:30 BP 159/59 06/11/24 22:45 Pulse Ox 93 L 06/12/24 07:30 FiO2 80 06/12/24 07:48 Intake & Output 06/11/24 06/12/24 06/12/24 18:59 06:59 18:59 Intake Total 4130.372 3034.300 136 Output Total 450 425 30 Balance 3680.372 2609.300 106 Weight 115.8 kg 119.4 kg Intake: IV 1589 1133 103 Cefepime 2 gm In Sodium 50 Chloride 0.9% 50 ml @ 100 mls/hr IVPB Q12H [facility] Rx# :[id number] Dextrose 5% in Water 1, 1300 1100 100 000 ml @ 100 mls/hr IV . [id number] [facility] with Sodium Bicarb (1 Meq/ml) 150 ml Rx#:[id number] Pressure Bag (0.9 sodium 39 33 3 chloride) Sodium Chloride 0.9% 1, 200 000 ml @ 100 mls/hr IV . Q10H [facility] Rx#:[id number] Intake, IV Titration 2301.372 1448.300 Amount Cisatracurium 200 mg In 138 75.839 Sodium Chloride 0.9% 180 ml @ 1 MCG/KG/MIN 5.987 mls/hr IV .Q24H [facility] Rx#: [id number] Norepinephrine 4 mg In 445.901 Sodium Chloride 0.9% 250 ml @ 0.03 MCG/KG/MIN 11. 406 mls/hr IV .[id number] [facility] Rx#:[id number] Norepinephrine 8 mg In 1395.620 894.831 Sodium Chloride 0.9% 250 ml @ 0.03 MCG/KG/MIN 6. 589 mls/hr IV .Q24H [facility] Rx#:[id number] Vasopressin 20 unit In 51 102 Sodium Chloride 0.9% 50 ml @ 0.03 UNITS/MIN 4.59 mls/hr IV .[id number] [facility] Rx# :[id number] propofoL 1,000 mg In 270.851 375.630 Empty Bag 1 bag @ 15 MCG/ KG/MIN 8.981 mls/hr IV . [id number] [facility] Rx#:[id number] Tube Feeding 180 363 33 Other 60 90 Output: Gastric Drainage 250 Urine 200 425 30 Other: Voiding Method Indwelling Catheter Indwelling Catheter ABP, PAP, CO, CI - Last Documented Arterial Blood Pressure 117/52 - Exam The patient appeared well nourished and normally developed. Vital signs as documented. The patient is sedated. The patient is paralyzed. Remains on mechanical ventilator. Orogastric orotracheal tube are both in place. Head exam is unremarkable. No scleral icterus or corneal arcus noted. Neck is without jugular venous distension, thyromegaly, or carotid bruits. Carotid upstrokes are brisk bilaterally. The patient has a left IJ triple-lumen catheter in place Lungs are clear to auscultation and percussion. Diminished breath sound bilateral lung with bibasilar crackles Cardiac exam reveals the PMI to be normally sized and situated. Rhythm is regular. First and second heart sounds normal. No murmurs, rubs or gallops. Abdominal exam reveals normal bowel sounds, no masses, no organomegaly and no aortic enlargement. Extremities are nonedematous and both femoral and pedal pulses are normal. Examination of the skin revealed no evidence of significant rashes, suspicious appearing nevi or other concerning lesions. Neurologically, the patient is a sedated and paralyzed. - Labs CBC & Chem 7: 06/12/24 05:10 06/12/24 05:10 Labs: Abnormal Lab Results - Last 24 Hours (Table) 06/11/24 06/11/24 06/11/24 Range/Units 04:45 04:45 09:18 WBC 26.5 H (3.8-10.6) k/uL RBC (4.30-5.90) m/uL Hgb (13.0-17.5) gm/dL Hct (39.0-53.0) % RDW (11.5-15.5) % Neutrophils # (Manual) 24.30 H (1.3-7.7) k/uL Lymphocytes # (Manual) (1.0-4.8) k/uL Metamyelocytes # (Man) (0) k/uL Myelocytes # (Manual) 0.27 H (0) k/uL Nucleated RBCs 2 H (0-0) /100 WBC ABG pH 7.11 L* (7.35-7.45) ABG pCO2 88 H* (35-45) mmHg ABG pO2 138 H (83-108) mmHg ABG HCO3 28 H (21-25) mmol/L ABG Total CO2 31 H (19-24) mmol/L ABG O2 Saturation 98.6 H (94-97) % Hemoglobin (13.0-17.5) gm/dL Potassium 5.4 H (3.5-5.1) mmol/L BUN 66 H (9-20) mg/dL Creatinine 2.14 H (0.66-1.25) mg/dL Glucose 262 H (74-99) mg/dL POC Glucose (mg/dL) (70-110) mg/dL Calcium 7.0 L (8.4-10.2) mg/dL Magnesium (1.6-2.3) mg/dL Alkaline Phosphatase (38-126) U/L Total Protein 5.5 L (6.3-8.2) g/dL Albumin 2.6 L (3.5-5.0) g/dL Urine Protein (Negative) Urine Ketones (Negative) Urine Blood (Negative) Ur Leukocyte Esterase (Negative) Urine RBC (0-5) /hpf Urine Mucus (None) /hpf 06/11/24 06/11/24 06/11/24 Range/Units 11:48 11:49 13:25 WBC (3.8-10.6) k/uL RBC (4.30-5.90) m/uL Hgb (13.0-17.5) gm/dL Hct (39.0-53.0) % RDW (11.5-15.5) % Neutrophils # (Manual) (1.3-7.7) k/uL Lymphocytes # (Manual) (1.0-4.8) k/uL Metamyelocytes # (Man) (0) k/uL Myelocytes # (Manual) (0) k/uL Nucleated RBCs (0-0) /100 WBC ABG pH 7.18 L* (7.35-7.45) ABG pCO2 76 H* (35-45) mmHg ABG pO2 (83-108) mmHg ABG HCO3 28 H (21-25) mmol/L ABG Total CO2 30 H (19-24) mmol/L ABG O2 Saturation (94-97) % Hemoglobin (13.0-17.5) gm/dL Potassium (3.5-5.1) mmol/L BUN (9-20) mg/dL Creatinine (0.66-1.25) mg/dL Glucose (74-99) mg/dL POC Glucose (mg/dL) 357 H (70-110) mg/dL Calcium (8.4-10.2) mg/dL Magnesium (1.6-2.3) mg/dL Alkaline Phosphatase (38-126) U/L Total Protein (6.3-8.2) g/dL Albumin (3.5-5.0) g/dL Urine Protein 1+ H (Negative) Urine Ketones Trace H (Negative) Urine Blood Moderate H (Negative) Ur Leukocyte Esterase Small H (Negative) Urine RBC 78 H (0-5) /hpf Urine Mucus Rare H (None) /hpf 06/11/24 06/11/24 06/12/24 Range/Units 17:31 23:14 03:09 WBC (3.8-10.6) k/uL RBC (4.30-5.90) m/uL Hgb (13.0-17.5) gm/dL Hct (39.0-53.0) % RDW (11.5-15.5) % Neutrophils # (Manual) (1.3-7.7) k/uL Lymphocytes # (Manual) (1.0-4.8) k/uL Metamyelocytes # (Man) (0) k/uL Myelocytes # (Manual) (0) k/uL Nucleated RBCs (0-0) /100 WBC ABG pH 7.21 L (7.35-7.45) ABG pCO2 75 H* (35-45) mmHg ABG pO2 (83-108) mmHg ABG HCO3 30 H (21-25) mmol/L ABG Total CO2 32 H (19-24) mmol/L ABG O2 Saturation (94-97) % Hemoglobin 11.5 L (13.0-17.5) gm/dL Potassium (3.5-5.1) mmol/L BUN (9-20) mg/dL Creatinine (0.66-1.25) mg/dL Glucose (74-99) mg/dL POC Glucose (mg/dL) 307 H 277 H (70-110) mg/dL Calcium (8.4-10.2) mg/dL Magnesium (1.6-2.3) mg/dL Alkaline Phosphatase (38-126) U/L Total Protein (6.3-8.2) g/dL Albumin (3.5-5.0) g/dL Urine Protein (Negative) Urine Ketones (Negative) Urine Blood (Negative) Ur Leukocyte Esterase (Negative) Urine RBC (0-5) /hpf Urine Mucus (None) /hpf 06/12/24 06/12/24 06/12/24 Range/Units 03:10 05:10 05:10 WBC 20.8 H (3.8-10.6) k/uL RBC 3.78 L (4.30-5.90) m/uL Hgb 11.6 L (13.0-17.5) gm/dL Hct 35.4 L (39.0-53.0) % RDW 15.7 H (11.5-15.5) % Neutrophils # (Manual) 19.76 H (1.3-7.7) k/uL Lymphocytes # (Manual) 0.62 L (1.0-4.8) k/uL Metamyelocytes # (Man) 0.21 H (0) k/uL Myelocytes # (Manual) (0) k/uL Nucleated RBCs (0-0) /100 WBC ABG pH (7.35-7.45) ABG pCO2 (35-45) mmHg ABG pO2 (83-108) mmHg ABG HCO3 (21-25) mmol/L ABG Total CO2 (19-24) mmol/L ABG O2 Saturation (94-97) % Hemoglobin (13.0-17.5) gm/dL Potassium (3.5-5.1) mmol/L BUN 82 H 82 H (9-20) mg/dL Creatinine 2.76 H 2.79 H (0.66-1.25) mg/dL Glucose 294 H 303 H (74-99) mg/dL POC Glucose (mg/dL) (70-110) mg/dL Calcium 6.6 L 6.2 L* (8.4-10.2) mg/dL Magnesium 3.2 H (1.6-2.3) mg/dL Alkaline Phosphatase 128 H (38-126) U/L Total Protein 5.7 L 5.5 L (6.3-8.2) g/dL Albumin 2.6 L 2.6 L (3.5-5.0) g/dL Urine Protein (Negative) Urine Ketones (Negative) Urine Blood (Negative) Ur Leukocyte Esterase (Negative) Urine RBC (0-5) /hpf Urine Mucus (None) /hpf 06/12/24 06/12/24 Range/Units 05:18 05:19 WBC (3.8-10.6) k/uL RBC (4.30-5.90) m/uL Hgb (13.0-17.5) gm/dL Hct (39.0-53.0) % RDW (11.5-15.5) % Neutrophils # (Manual) (1.3-7.7) k/uL Lymphocytes # (Manual) (1.0-4.8) k/uL Metamyelocytes # (Man) (0) k/uL Myelocytes # (Manual) (0) k/uL Nucleated RBCs (0-0) /100 WBC ABG pH 7.21 L (7.35-7.45) ABG pCO2 73 H* (35-45) mmHg ABG pO2 (83-108) mmHg ABG HCO3 29 H (21-25) mmol/L ABG Total CO2 31 H (19-24) mmol/L ABG O2 Saturation (94-97) % Hemoglobin 11.4 L (13.0-17.5) gm/dL Potassium (3.5-5.1) mmol/L BUN (9-20) mg/dL Creatinine (0.66-1.25) mg/dL Glucose (74-99) mg/dL POC Glucose (mg/dL) 327 H (70-110) mg/dL Calcium (8.4-10.2) mg/dL Magnesium (1.6-2.3) mg/dL Alkaline Phosphatase (38-126) U/L Total Protein (6.3-8.2) g/dL Albumin (3.5-5.0) g/dL Urine Protein (Negative) Urine Ketones (Negative) Urine Blood (Negative) Ur Leukocyte Esterase (Negative) Urine RBC (0-5) /hpf Urine Mucus (None) /hpf Microbiology - Last 24 Hours (Table) 06/10/24 14:04 Blood Culture Gram Stain - Preliminary Blood Blood Culture - Preliminary Streptococcus pneumoniae Staphylococcus hominis Molecular ID 06/10/24 17:10 Gram Stain - Preliminary Sputum Assessment and Plan Plan: Acute hypoxic respiratory failure secondary to bilateral pneumococcal pneumonia and secondary sepsis. The patient remains intubated on mechanical ventilator. Oxygenation is stable. Acid-base status is improved on follow-up blood gas. Bilateral pneumococcal pneumonia following an acute influenza A infection. The patient's sputum sample was positive for streptococcal pneumonia and blood cultures were also positive. There is an obviously a a bacterial superinfection on top of his influenza A infection. The patient has extensive bilateral consolidation, infiltrate left upper lobe is stable and there is dense consolidation in the right lower lobe. Septic shock, second pneumococcal pneumonia with bacteremia. Patient remains on high-dose pressors and the patient is currently on a combination norepinephrine and vasopressin. Acute kidney injury, the patient is anuric at this point. Rule out ATN. There is progressive rise in the creatinine. The patient is currently on a bicarb infusion. Fluid balance is positive. Urine output is quite diminished in the order of 20 to 30 cc an hour. Nephrology on the case. Acute leukocytosis, white cell count is improved compared to yesterday Atrial fibrillation with rapid ventricular response, currently on amiodarone drip. Rate is under better control for now. Hypertension Plan Keep the patient sedated with propofol and paralyzed with Nimbex Will give the patient a paralytic holiday Ventilator changes were done. The patient is currently on a PEEP of 18 with an FiO2 will be gradually weaned to maintain saturation above 90%., tidal volumes of 450 with a rate of 34. Continue Tamiflu 75 mg p.o. twice a day Continue IV Solu-Medrol 60 mg every 6 hours Switched antibiotics to Rocephin 2 g every 24 hours and vancomycin will be continued for now Blood cultures sputum cultures positive for Streptococcus pneumonia Discontinue the bicarb infusion Continue pressors and the patient is still on a combination of norepinephrine and vasopressin. Norepinephrine dose will be gradually weaned off. Obtain an echocardiogram shows a preserved LV function Nephrology consultation Continue enteral feeding for nutritional support Lovenox 40 mg subcu for DVT prophylaxis IV Protonix Monitor white cell count Monitor renal function and urine output Discontinue the IV amiodarone and put the patient on oral amiodarone 400 mg p.o. twice a day Start the patient IV heparin Condition is critical. Will monitor oxygenation very closely. This is a critical care evaluation that was done more than 40 minutes. Condition is critical at this point in time. Time with Patient: Greater than 30
[2024-06-12 17:56] LABS: Glucose,Whole Blood 239 mg/dL (70-110)
[2024-06-12] MEDS: HEPARIN SOD,PORK IN 0.45% NACL 25,000 UNIT in 0.45% NACL 1 250ML.BAG IV SCH (21:07)
[2024-06-12] MEDS: INSULIN DETEMIR (LEVEMIR) 100 UNIT/ML SYR SQ SCH (21:29)
[2024-06-13 00:01] LABS: Glucose,Whole Blood 213 mg/dL (70-110)
[2024-06-13 04:15] LABS: ALT 18 U/L (4-49); AST 20 U/L (17-59); African American GFR (CKD) 24 (>60 ml/min/1.73 sqM); Albumin 2.6 g/dL (3.5-5.0); Alkaline Phosphatase 113 U/L (38-126); Anion Gap 13 mmol/L; Blood Urea Nitrogen 101 mg/dL (9-20); Calcium 6.4 mg/dL (8.4-10.2); Carbon Dioxide 26 mmol/L (22-30); Chloride 102 mmol/L (98-107); Glucose 222 mg/dL (74-99); Non-African American GFR(CKD) 21 (>60 ml/min/1.73 sqM); Sodium 141 mmol/L (137-145); Total Bilirubin 0.7 mg/dL (0.2-1.3); Total Protein 5.8 g/dL (6.3-8.2)
[2024-06-13 04:32] LABS: Anisocytosis Slight; HCT 34.2 % (39.0-53.0); Hypochromasia Slight; MCH 29.4 pg (25.0-35.0); MCHC 32.1 g/dL (31.0-37.0); MCV 91.4 fL (80.0-100.0); Mean Platelet Volume 9.9; Platelet Count 195 k/uL (150-450); RBC 3.74 m/uL (4.30-5.90); RDW 16.5 % (11.5-15.5)
[2024-06-13 05:00] LABS: Prothrombin Time 10.9 sec (10.0-12.5)
[2024-06-13 05:18] LABS: ABG Base Excess -1.3 mmol/L; ABG HCO3 28 mmol/L (21-25); ABG PCO2 68 mmHg (35-45); ABG PH 7.22 (7.35-7.45); ABG PO2 75 mmHg (83-108); ABG TCO2 30 mmol/L (19-24)
[2024-06-13 05:19] LABS: Allen Test Performed? no
[2024-06-13] MEDS: HEPARIN SODIUM 1,000 UN/ML (10ML VL) IV PRN (05:57)
[2024-06-13] MEDS: CALCIUM GLUCONATE IN NACL 2 GM in SALINE 1 100ML.BAG IVPB ONE (06:24)
[2024-06-13 06:42] LABS: Band Neutrophils % 1 %; Metamyelocytes % 2 %; Myelocytes # (M) 0.19 k/uL (0); Myelocytes % 1 %; Neutrophils % (M) 80 %; Nucleated Red Blood Cells 2 /100 WBC (0-0); Total Cells Counted 200
[2024-06-13 06:43] LABS: Lymphocytes # (M) 1.86 k/uL (1.0-4.8); Metamyelocytes # (M) 0.37 k/uL (0); WBC 18.6 k/uL (3.8-10.6)
[2024-06-13 06:44] LABS: Crenated RBC Present; Tear Drop Cells Present
[2024-06-13 06:48] LABS: Glucose,Whole Blood 244 mg/dL (70-110)
[2024-06-13] MEDS: VANCOMYCIN 1,500 MG in SODIUM CHLORIDE 0.9% 500 ML 500 ML IVPB ONE (06:58)
--- NOTE | 2024-06-13 07:15 | XR ---
EXAMINATION TYPE: XR chest 1V portable DATE OF EXAM: 06/13/2024 5:38 AM COMPARISON: 06/12/2024 CLINICAL INDICATION: Male, 69 years old with history of mechanical ventilation, difficulty breathing TECHNIQUE: XR chest 1V portable view(s) obtained. FINDINGS: The heart size is normal. The pulmonary vasculature is prominent. Diffuse increased lung markings are present bilaterally. This may be more focal in the right lower lo be. There is some slight improvement of the right lower lobe consolidation. Left upper lobe consolida tion appears similar. Endotracheal tube tip is 5.4 cm above the marie. Nasogastric tube transverses the thorax. Left centr al venous catheter tip is in the superior vena cava region IMPRESSION: 1. Slight improvement of the right lower lobe consolidation. Left upper lobe consolidation and additi onal lung infiltrates remain stable. 2. Lines and catheters discussed above [facility], , 06/13/2024 7:13 AM
--- NOTE | 2024-06-13 07:35 | P.PN ---
Subjective Progress Note Date: 06/13/24 PROGRESS NOTE The patient is a 69-year-old male who presented with symptoms of progressive dyspnea, diagnosed with pneumonia and influenza A, requiring mechanical ventilation. Cardiology consultation was requested because of atrial fibrillation. The patient is intubated and sedated. He has a history of atrial fibrillation, status post ablation in January 2024. He was in sinus mechanism on presentation and back in atrial fibrillation at this time with episode of rapid ventricle response. He is on vasopressors. He had an echocardiogram that showed a preserved systolic function, the study was technically difficult. The patient has been anticoagulated as an outpatient. Her chest x-ray shows severe infiltration bilaterally consistent with a pneumonia. Presentation he had evidence of acute renal injury and hypotension related to sepsis. He has been initiated on amiodarone and he is on vasopressin in addition to norepinephrine June 13: The patient remains intubated and sedated. He had episodes of paroxysmal atrial fibrillation. He is in sinus mechanism at this time. He continues to be on norepinephrine. His urine output is stable. His chest x-ray shows bilateral infiltrate consistent with his pneumonia. There is no evidence of ventricular ectopic activity.There is significant worsening of his renal function with a BUN up to 101 with a creatinine of 2.94. Tolerating tube feeding Medications: IV heparin, Rocephin, insulin, methylprednisolone, metoprolol tartrate 25 mg twice a day, Tamiflu, vancomycin PHYSICAL EXAMINATION: Blood pressure 137/50 heart rate 98, intubated and sedated LUNGS: Clear to auscultation anteriorly HEART: Regular rate and rhythm, S1, S2. No S3. Systolic ejection murmur ABDOMEN: Soft, positive bowel sounds, no organomegaly EXTREMETIES: +1-2 edema LAB: Hemoglobin 11, WBC 18.6, pH 7.22, pCO2 68 with a pCO2 of 75. BUN 101 with a creatinine of 2.94. IMPRESSION: 1. Acute respiratory failure with bilateral pneumonia and influenza A 2. Paroxysmal atrial fibrillation status post ablation in 2023 3. Acute renal injury related to the sepsis and hypotension 4. Hypotension, improved PLAN: 1. Continue beta-angel 2. Change to oral amiodarone 3. Continue anticoagulation 4. Follow renal functions, prognosis is guarded Objective - Vital Signs Vital signs: Vital Signs Temp 98.7 F 06/13/24 04:00 Pulse 98 06/13/24 07:00 Resp 34 H 06/13/24 07:00 BP 128/57 06/13/24 01:45 Pulse Ox 91 L 06/13/24 07:00 FiO2 70 06/13/24 05:11 Intake & Output 06/12/24 06/13/24 06/13/24 18:59 06:59 18:59 Intake Total 3857.907 2327.086 203 Output Total 485 515 55 Balance 3372.907 1812.086 148 Weight 126.2 kg Intake: IV 1836 446 170 0.9% NS KVO 210 Calcium Gluconate in NaCl 100 2 gm In Saline 1 100ml. bag @ 100 mls/hr IVPB ONCE ONE Rx#:[id number] Cefepime 2 gm In Sodium 100 Chloride 0.9% 50 ml @ 100 mls/hr IVPB Q12H [facility] Rx# :[id number] Dextrose 5% in Water 1, 1200 100 000 ml @ 100 mls/hr IV . [id number] [facility] with Sodium Bicarb (1 Meq/ml) 150 ml Rx#:[id number] Pressure Bag (0.9 sodium 36 36 3 chloride) Vancomycin 1,500 mg In 500 Sodium Chloride 0.9% 500 ml 500 ml @ 167 mls/hr IVPB ONCE ONE Rx#: [id number] Vancomycin 1,500 mg In 167 Sodium Chloride 0.9% 500 ml 500 ml @ 167 mls/hr IVPB Q24H [facility] Rx#: [id number] Intake, IV Titration 4454.608 2353.086 Amount Amiodarone 450 mg In 250 Dextrose 5% in Water 250 ml @ 0.5 MG/MIN 16.667 mls/hr IV .Q15H [facility] Rx#: [id number] Cisatracurium 200 mg In 42.308 0 Sodium Chloride 0.9% 180 ml @ 1 MCG/KG/MIN 5.987 mls/hr IV .Q24H [facility] Rx#: [id number] Heparin Sod,Pork in 0.45% 88.167 NaCl 25,000 unit In 0.45 % NaCl 1 250ml.bag @ 8. 375 UNITS/KG/HR 10 mls/hr IV .Q24H [facility] Rx#: [id number] Norepinephrine 8 mg In 1032.000 626.507 Sodium Chloride 0.9% 250 ml @ 0.03 MCG/KG/MIN 6. 589 mls/hr IV .Q24H [facility] Rx#:[id number] Vasopressin 20 unit In 51 51 Sodium Chloride 0.9% 50 ml @ 0.03 UNITS/MIN 4.59 mls/hr IV .Q11H7M [facility] Rx# :[id number] propofoL 1,000 mg In 290.599 379.412 Empty Bag 1 bag @ 15 MCG/ KG/MIN 8.981 mls/hr IV . Q11H9M [facility] Rx#:[id number] Oral 120 0 Tube Feeding 396 396 33 Other 90 90 Output: Urine 485 515 55 Other: Voiding Method Indwelling Catheter Indwelling Catheter ABP, PAP, CO, CI - Last Documented Arterial Blood Pressure 137/55 - Labs CBC & Chem 7: 06/13/24 03:21 06/13/24 03:21 Labs: Abnormal Lab Results - Last 24 Hours (Table) 06/12/24 06/12/24 06/12/24 Range/Units 05:10 11:09 11:11 WBC (3.8-10.6) k/uL RBC (4.30-5.90) m/uL Hgb (13.0-17.5) gm/dL Hct (39.0-53.0) % RDW (11.5-15.5) % Neutrophils # (Manual) (1.3-7.7) k/uL Monocytes # (Manual) (0-1.0) k/uL Metamyelocytes # (Man) (0) k/uL Myelocytes # (Manual) (0) k/uL Nucleated RBCs (0-0) /100 WBC ABG pH (7.35-7.45) ABG pCO2 (35-45) mmHg ABG pO2 (83-108) mmHg ABG HCO3 (21-25) mmol/L ABG Total CO2 (19-24) mmol/L ABG O2 Saturation (94-97) % Hemoglobin (13.0-17.5) gm/dL BUN 82 H (9-20) mg/dL Creatinine 2.79 H (0.66-1.25) mg/dL Glucose 303 H (74-99) mg/dL POC Glucose (mg/dL) 273 H (70-110) mg/dL Calcium 6.2 L* (8.4-10.2) mg/dL Ionized Calcium Juan Pablo 3.8 L (4.5-5.3) mg/dL Total Protein 5.5 L (6.3-8.2) g/dL Albumin 2.6 L (3.5-5.0) g/dL 06/12/24 06/12/24 06/13/24 Range/Units 17:55 23:59 03:21 WBC (3.8-10.6) k/uL RBC (4.30-5.90) m/uL Hgb (13.0-17.5) gm/dL Hct (39.0-53.0) % RDW (11.5-15.5) % Neutrophils # (Manual) (1.3-7.7) k/uL Monocytes # (Manual) (0-1.0) k/uL Metamyelocytes # (Man) (0) k/uL Myelocytes # (Manual) (0) k/uL Nucleated RBCs (0-0) /100 WBC ABG pH (7.35-7.45) ABG pCO2 (35-45) mmHg ABG pO2 (83-108) mmHg ABG HCO3 (21-25) mmol/L ABG Total CO2 (19-24) mmol/L ABG O2 Saturation (94-97) % Hemoglobin (13.0-17.5) gm/dL BUN 101 H* (9-20) mg/dL Creatinine 2.94 H (0.66-1.25) mg/dL Glucose 222 H (74-99) mg/dL POC Glucose (mg/dL) 239 H 213 H (70-110) mg/dL Calcium 6.4 L* (8.4-10.2) mg/dL Ionized Calcium Juan Pablo (4.5-5.3) mg/dL Total Protein 5.8 L (6.3-8.2) g/dL Albumin 2.6 L (3.5-5.0) g/dL 06/13/24 06/13/24 06/13/24 Range/Units 03:21 04:34 05:08 WBC 18.6 H (3.8-10.6) k/uL RBC 3.74 L (4.30-5.90) m/uL Hgb 11.0 L (13.0-17.5) gm/dL Hct 34.2 L (39.0-53.0) % RDW 16.5 H (11.5-15.5) % Neutrophils # (Manual) 15.00 H (1.3-7.7) k/uL Monocytes # (Manual) 1.30 H (0-1.0) k/uL Metamyelocytes # (Man) 0.37 H (0) k/uL Myelocytes # (Manual) 0.19 H (0) k/uL Nucleated RBCs 2 H (0-0) /100 WBC ABG pH 7.22 L (7.35-7.45) ABG pCO2 68 H (35-45) mmHg ABG pO2 75 L (83-108) mmHg ABG HCO3 28 H (21-25) mmol/L ABG Total CO2 30 H (19-24) mmol/L ABG O2 Saturation 93.0 L (94-97) % Hemoglobin 11.1 L (13.0-17.5) gm/dL BUN (9-20) mg/dL Creatinine (0.66-1.25) mg/dL Glucose (74-99) mg/dL POC Glucose (mg/dL) (70-110) mg/dL Calcium (8.4-10.2) mg/dL Ionized Calcium Juan Pablo 3.8 L (4.5-5.3) mg/dL Total Protein (6.3-8.2) g/dL Albumin (3.5-5.0) g/dL 06/13/24 Range/Units 06:47 WBC (3.8-10.6) k/uL RBC (4.30-5.90) m/uL Hgb (13.0-17.5) gm/dL Hct (39.0-53.0) % RDW (11.5-15.5) % Neutrophils # (Manual) (1.3-7.7) k/uL Monocytes # (Manual) (0-1.0) k/uL Metamyelocytes # (Man) (0) k/uL Myelocytes # (Manual) (0) k/uL Nucleated RBCs (0-0) /100 WBC ABG pH (7.35-7.45) ABG pCO2 (35-45) mmHg ABG pO2 (83-108) mmHg ABG HCO3 (21-25) mmol/L ABG Total CO2 (19-24) mmol/L ABG O2 Saturation (94-97) % Hemoglobin (13.0-17.5) gm/dL BUN (9-20) mg/dL Creatinine (0.66-1.25) mg/dL Glucose (74-99) mg/dL POC Glucose (mg/dL) 244 H (70-110) mg/dL Calcium (8.4-10.2) mg/dL Ionized Calcium Juan Pablo (4.5-5.3) mg/dL Total Protein (6.3-8.2) g/dL Albumin (3.5-5.0) g/dL Microbiology - Last 24 Hours (Table) 06/10/24 17:19 Nasal Screen MRSA/MSSA - Final Nasal Swab 06/10/24 17:10 Gram Stain - Preliminary Sputum Sputum Culture - Preliminary Streptococcus pneumoniae Natalie albicans 06/10/24 14:04 Blood Culture Gram Stain - Preliminary Blood Blood Culture - Preliminary Streptococcus pneumoniae Staphylococcus hominis Molecular ID
[2024-06-13] MEDS: AMIODARONE 200 MG TAB PO SCH (08:10)
[2024-06-13] MEDS: OSELTAMIVIR 60 MG/10 ML ORAL SYRINGE PO SCH (08:11)
[2024-06-13] MEDS ORDERED: AMIODARONE 200 MG TAB PO SCH (09:00)
[2024-06-13] MEDS: FUROSEMIDE 10 MG/ML 10 ML VIAL IV SCH (09:37)
[2024-06-13 11:47] LABS: Glucose,Whole Blood 215 mg/dL (70-110)
--- NOTE | 2024-06-13 11:55 | P.PN ---
Subjective Patient is seen for follow-up for acute kidney injury. Renal function has improved. Currently off of IV fluids and received IV Lasix this morning. FiO2 at 70%. Urine output 100 cc an hour for the last few hours after Lasix this morning. Serum creatinine down to 2.9 today. Objective - Vital Signs Vital signs: Vital Signs Temp 98.8 F 06/13/24 08:00 Pulse 105 H 06/13/24 11:33 Resp 34 H 06/13/24 11:15 BP 128/57 06/13/24 01:45 Pulse Ox 90 L 06/13/24 11:15 FiO2 70 06/13/24 11:33 Intake & Output 06/12/24 06/13/24 06/13/24 18:59 06:59 18:59 Intake Total 3857.907 2327.086 1136.147 Output Total 485 515 405 Balance 3372.907 1812.086 731.147 Weight 126.2 kg Intake: IV 1836 446 272 0.9% NS KVO 210 40 Calcium Gluconate in NaCl 100 2 gm In Saline 1 100ml. bag @ 100 mls/hr IVPB ONCE ONE Rx#:[id number] Cefepime 2 gm In Sodium 100 Chloride 0.9% 50 ml @ 100 mls/hr IVPB Q12H [facility] Rx# :[id number] Dextrose 5% in Water 1, 1200 100 000 ml @ 100 mls/hr IV . [id number] [facility] with Sodium Bicarb (1 Meq/ml) 150 ml Rx#:[id number] Pressure Bag (0.9 sodium 36 36 15 chloride) Vancomycin 1,500 mg In 500 Sodium Chloride 0.9% 500 ml 500 ml @ 167 mls/hr IVPB ONCE ONE Rx#: [id number] Vancomycin 1,500 mg In 167 Sodium Chloride 0.9% 500 ml 500 ml @ 167 mls/hr IVPB Q24H [facility] Rx#: [id number] cefTRIAXone 2 gm In 50 Sodium Chloride 0.9% 50 ml @ 100 mls/hr IVPB Q24HR [facility] Rx#:[id number] Intake, IV Titration 3583.532 8128.086 669.147 Amount Amiodarone 450 mg In 250 Dextrose 5% in Water 250 ml @ 0.5 MG/MIN 16.667 mls/hr IV .Q15H [facility] Rx#: [id number] Cisatracurium 200 mg In 42.308 0 81.853 Sodium Chloride 0.9% 180 ml @ 1 MCG/KG/MIN 5.987 mls/hr IV .Q24H [facility] Rx#: [id number] Heparin Sod,Pork in 0.45% 88.167 NaCl 25,000 unit In 0.45 % NaCl 1 250ml.bag @ 8. 375 UNITS/KG/HR 10 mls/hr IV .Q24H [facility] Rx#: [id number] Norepinephrine 8 mg In 1032.000 626.507 403.573 Sodium Chloride 0.9% 250 ml @ 0.03 MCG/KG/MIN 6. 589 mls/hr IV .Q24H [facility] Rx#:[id number] Vasopressin 20 unit In 51 51 51 Sodium Chloride 0.9% 50 ml @ 0.03 UNITS/MIN 4.59 mls/hr IV .Q11H7M [facility] Rx# :[id number] propofoL 1,000 mg In 290.599 379.412 132.721 Empty Bag 1 bag @ 15 MCG/ KG/MIN 8.981 mls/hr IV . Q11H9M [facility] Rx#:[id number] Oral 120 0 Tube Feeding 396 396 165 Other 90 90 30 Output: Urine 485 515 405 Other: Voiding Method Indwelling Catheter Indwelling Catheter Indwelling Catheter ABP, PAP, CO, CI - Last Documented Arterial Blood Pressure 106/52 - Exam Patient is sedated and on the vent Examination of the heart S1 and S2 Examination the lungs bilateral breath sounds are heard Abdomen is soft obese Examination of lower extremity shows 2+ edema - Labs CBC & Chem 7: 06/13/24 03:21 06/13/24 03:21 Labs: Abnormal Lab Results - Last 24 Hours (Table) 06/12/24 06/12/24 06/13/24 Range/Units 17:55 23:59 03:21 WBC (3.8-10.6) k/uL RBC (4.30-5.90) m/uL Hgb (13.0-17.5) gm/dL Hct (39.0-53.0) % RDW (11.5-15.5) % Neutrophils # (Manual) (1.3-7.7) k/uL Monocytes # (Manual) (0-1.0) k/uL Metamyelocytes # (Man) (0) k/uL Myelocytes # (Manual) (0) k/uL Nucleated RBCs (0-0) /100 WBC ABG pH (7.35-7.45) ABG pCO2 (35-45) mmHg ABG pO2 (83-108) mmHg ABG HCO3 (21-25) mmol/L ABG Total CO2 (19-24) mmol/L ABG O2 Saturation (94-97) % Hemoglobin (13.0-17.5) gm/dL BUN 101 H* (9-20) mg/dL Creatinine 2.94 H (0.66-1.25) mg/dL Glucose 222 H (74-99) mg/dL POC Glucose (mg/dL) 239 H 213 H (70-110) mg/dL Calcium 6.4 L* (8.4-10.2) mg/dL Ionized Calcium Juan Pablo (4.5-5.3) mg/dL Total Protein 5.8 L (6.3-8.2) g/dL Albumin 2.6 L (3.5-5.0) g/dL 06/13/24 06/13/24 06/13/24 Range/Units 03:21 04:34 05:08 WBC 18.6 H (3.8-10.6) k/uL RBC 3.74 L (4.30-5.90) m/uL Hgb 11.0 L (13.0-17.5) gm/dL Hct 34.2 L (39.0-53.0) % RDW 16.5 H (11.5-15.5) % Neutrophils # (Manual) 15.00 H (1.3-7.7) k/uL Monocytes # (Manual) 1.30 H (0-1.0) k/uL Metamyelocytes # (Man) 0.37 H (0) k/uL Myelocytes # (Manual) 0.19 H (0) k/uL Nucleated RBCs 2 H (0-0) /100 WBC ABG pH 7.22 L (7.35-7.45) ABG pCO2 68 H (35-45) mmHg ABG pO2 75 L (83-108) mmHg ABG HCO3 28 H (21-25) mmol/L ABG Total CO2 30 H (19-24) mmol/L ABG O2 Saturation 93.0 L (94-97) % Hemoglobin 11.1 L (13.0-17.5) gm/dL BUN (9-20) mg/dL Creatinine (0.66-1.25) mg/dL Glucose (74-99) mg/dL POC Glucose (mg/dL) (70-110) mg/dL Calcium (8.4-10.2) mg/dL Ionized Calcium Juan Pablo 3.8 L (4.5-5.3) mg/dL Total Protein (6.3-8.2) g/dL Albumin (3.5-5.0) g/dL 06/13/24 06/13/24 Range/Units 06:47 11:45 WBC (3.8-10.6) k/uL RBC (4.30-5.90) m/uL Hgb (13.0-17.5) gm/dL Hct (39.0-53.0) % RDW (11.5-15.5) % Neutrophils # (Manual) (1.3-7.7) k/uL Monocytes # (Manual) (0-1.0) k/uL Metamyelocytes # (Man) (0) k/uL Myelocytes # (Manual) (0) k/uL Nucleated RBCs (0-0) /100 WBC ABG pH (7.35-7.45) ABG pCO2 (35-45) mmHg ABG pO2 (83-108) mmHg ABG HCO3 (21-25) mmol/L ABG Total CO2 (19-24) mmol/L ABG O2 Saturation (94-97) % Hemoglobin (13.0-17.5) gm/dL BUN (9-20) mg/dL Creatinine (0.66-1.25) mg/dL Glucose (74-99) mg/dL POC Glucose (mg/dL) 244 H 215 H (70-110) mg/dL Calcium (8.4-10.2) mg/dL Ionized Calcium Juan Pablo (4.5-5.3) mg/dL Total Protein (6.3-8.2) g/dL Albumin (3.5-5.0) g/dL Microbiology - Last 24 Hours (Table) 06/10/24 17:10 Gram Stain - Final Sputum Sputum Culture - Final Streptococcus pneumoniae Natalie albicans 06/10/24 14:04 Blood Culture Gram Stain - Final Blood Blood Culture - Final Streptococcus pneumoniae Staphylococcus hominis Molecular ID 06/10/24 17:19 Nasal Screen MRSA/MSSA - Final Nasal Swab Assessment and Plan Assessment: 1. Acute kidney injury, oliguric ATN from severe hypotension and sepsis. UA shows 1+ protein moderate blood. Ultrasound is unremarkable. Previous creatinine 1.0 on 02/01/2024 2. Septic shock from pneumonia, viral and possible bacterial pneumonia as well. 3. Influenza A 4. Severe respiratory acidosis from respiratory failure slowly improving 5. Chronic A-fib status post cardiac ablation Plan: Currently off of IV fluids and received IV Lasix this morning. Repeat in a.m. Continue to avoid nephrotoxic agents Continue with antibiotics. Vasopressors are being decreased.
--- NOTE | 2024-06-13 13:37 | P.PN ---
Subjective Progress Note Date: 06/13/24 Hospital Course: Patient is a 69-year-old male with past medical history of A-fib status post a blation, hypertension. History obtained from chart review. Per ER note, EMS was called by patient's family for shortness of breath, family reported that multiple family members were sick in the house. They noted his SpO2 to be in 60s on placed him on CPAP with no improvement and he continued to breathe rapidly, spiking fever ER course: Patient was febrile Patient was placed on BiPAP for hypoxia, remained tachypneic and in respiratory distress despite BiPAP. Patient spent 1-1/2-hour on BiPAP with no improvement in his respiratory status, he is tachypneic in 50s, satting in mid to high 80s, decision was made to intubate, no family members available to obtain consent,. Intubated on 06/10, sedated, paralyzed, transferred to ICU, started on treatment for acute hypoxic respiratory failure secondary to bilateral pneumonia, influenza A pneumonia, cefepime, vancomycin, was alternating SOT 06/10. Patient was additionally started on IV Solu-Medrol, sputum and blood cultures obtained, pending. Repeat chest x-ray showed diffuse pulmonary infiltrates worsening from yesterday, blood gases showed severe acidosis with pH of 7.05, patient was started on bicarb drip overnight, his blood pressure dropped and he was started on the BiPAP but required up titration for better BP control., Later vas opressin was initiated. Patient was noted to have very low urine output, worsening kidney function. Nephrology consulted, recommended to continue bicarb drip, IV hydration, kidney ultrasound and UA ordered, showed no obstruction or hydronephrosis. 06/12 bicarb drip discontinued, patient continued on norepinephrine, 0.58. Blood cultures growing strep pneumo, antibiotics de-escalated to ceftriaxone 2 g daily. Cardiology consulted for A-fib with RVR, patient was on amiodarone drip, will be switched to oral amiodarone starting 06/13. He is on heparin drip. 06/13: Continued on norepinephrine, titrating down, continued on vasopressin, Nimbex. Received 1 dose of Lasix, urine output increasing to 100 cc/h. MRSA swab came back negative, vancomycin discontinued. Pertinent Imaging: Chest x-ray with left upper and right lower lobe pneumonia, with slight improvement Subjective: Intubated, sedated, paralyzed, Vitals Signs Reviewed. General: [Ill-appearing, intubated, sedated, paralyzed, obese Derm: [warm], [dry] Head: [atraumatic], [normocephalic], [symmetric] Eyes: [EOMI], [no lid lag], [anicteric sclera] Mouth: [no lip lesion], [mucus membranes moist], ETT, OG tube Cardiovascular: [S1S2 reg], [no murmur] Lungs: Diminished breath sounds, crackles left more than right Abdominal: [soft], [ nontender to palpation], [no guarding], [no appreciable organomegaly] Ext: [no gross muscle atrophy], [bilateral lower extremity edema], [no contractures] Neuro: [ Intubated sedated paralyzed Psych: [ Data Reviewed Today: Pertinent Labs: Leukocytosis improving 19.6, hemoglobin 11.0, platelet count normal, ABG with pH of 7.2, pCO2 68, pO2 75, sodium and potassium normal, creatinine 2.94, BUN 101, glucose 222, ionized calcium 3.8, normal liver enzymes. Assessment and Plan: septic shock secondary to severe bilateral community-acquired strep pneumo pneumonia, influenza A infection Strep pneumo bacteremia Acute hypoxic respiratory failure secondary to above requiring intubation 06/10/2024 REspiratory acidosis -Continue mechanical ventilation and sedation per ICU, patient did not tolerate paralytic holiday on 06/12, another attempt 06/13 planned no ventilator changes made today -Continue ceftriaxone 2 g daily, antibiotics SOT 06/10, MRSA swab negative, vancomycin discontinued 06/13 -Follow-up sputum and blood cultures, growing strep pneumo -Follow-up CBC and CMP -ICU consulted -Hypoglycemia protocol SSI, Accu-Cheks every 6 hours, added Levemir, increased to 20 units twice daily -Continue DuoNebs: 4 hours -Continue Solu-Medrol 60 mg every 6 hours -follow up ABG, vent adjustments per ICU -Patient's girlfriend updated on 06/13, all questions answered -Discussed with ICU team EMEKA, oliguric likely secondary to ATN in the settings of hypotension and sepsis Hematuria -bicarb drip discontinued, monitor BMP -Creatinine is rising, 1 dose of Lasix 06/13, urine output increased now around 100 cc/h versus around 30 as before. -Nephrology following -UA reviewed, kidney ultrasound without hydronephrosis or obstruction -Stress ulcer prophylaxis with IV Protonix Persistent A-fib status post ablation : Continue heparin drip, stop amiodarone drip, start amiodarone p.o. 400 twice daily, started on Lopressor 25 twice anshul y. history of hypertension ,: On amlodipine 10, losartan 100, , will hold for now due to hypotension requiring pressors, started on metoprolol 25 twice daily by cardiology for A-fib control GERD: On home omeprazole 40 daily, IV Protonix Left forehead lipoma -CT head done, no acute intracranial process, left forehead abnormality is most compatible with lipoma, no hematoma. No fracture, moderate multilevel degenerative disc disease Obesity CODE STATUS:default full code DVT prophylaxis: Heparin drip Anticipated discharge date: tbd Anticipated discharge place: tbd Objective - Vital Signs Vital signs: Vital Signs Temp 98.8 F 06/13/24 12:00 Pulse 101 H 06/13/24 13:00 Resp 34 H 06/13/24 13:00 BP 128/57 06/13/24 01:45 Pulse Ox 91 L 06/13/24 13:00 FiO2 70 06/13/24 12:00 Intake & Output 06/12/24 06/13/24 06/13/24 18:59 06:59 18:59 Intake Total 3857.907 2327.086 1265.460 Output Total 485 515 555 Balance 3372.907 1812.086 710.460 Weight 126.2 kg Intake: IV 1836 446 295 0.9% NS KVO 210 60 Calcium Gluconate in NaCl 100 2 gm In Saline 1 100ml. bag @ 100 mls/hr IVPB ONCE ONE Rx#:[id number] Cefepime 2 gm In Sodium 100 Chloride 0.9% 50 ml @ 100 mls/hr IVPB Q12H [facility] Rx# :[id number] Dextrose 5% in Water 1, 1200 100 000 ml @ 100 mls/hr IV . [id number] JACQUES with Sodium Bicarb (1 Meq/ml) 150 ml Rx#:[id number] Pressure Bag (0.9 sodium 36 36 18 chloride) Vancomycin 1,500 mg In 500 Sodium Chloride 0.9% 500 ml 500 ml @ 167 mls/hr IVPB ONCE ONE Rx#: [id number] Vancomycin 1,500 mg In 167 Sodium Chloride 0.9% 500 ml 500 ml @ 167 mls/hr IVPB Q24H [facility] Rx#: [id number] cefTRIAXone 2 gm In 50 Sodium Chloride 0.9% 50 ml @ 100 mls/hr IVPB Q24HR [facility] Rx#:[id number] Intake, IV Titration 0774.305 4814.086 710.460 Amount Amiodarone 450 mg In 250 Dextrose 5% in Water 250 ml @ 0.5 MG/MIN 16.667 mls/hr IV .Q15H [facility] Rx#: [id number] Cisatracurium 200 mg In 42.308 0 81.853 Sodium Chloride 0.9% 180 ml @ 1 MCG/KG/MIN 5.987 mls/hr IV .Q24H [facility] Rx#: [id number] Heparin Sod,Pork in 0.45% 88.167 NaCl 25,000 unit In 0.45 % NaCl 1 250ml.bag @ 8. 375 UNITS/KG/HR 10 mls/hr IV .Q24H [facility] Rx#: [id number] Norepinephrine 8 mg In 1032.000 626.507 403.573 Sodium Chloride 0.9% 250 ml @ 0.03 MCG/KG/MIN 6. 589 mls/hr IV .Q24H [facility] Rx#:[id number] Vasopressin 20 unit In 51 51 51 Sodium Chloride 0.9% 50 ml @ 0.03 UNITS/MIN 4.59 mls/hr IV .Q11H7M [facility] Rx# :[id number] propofoL 1,000 mg In 290.599 379.412 174.034 Empty Bag 1 bag @ 15 MCG/ KG/MIN 8.981 mls/hr IV . Q11H9M [facility] Rx#:[id number] Oral 120 0 Tube Feeding 396 396 200 Other 90 90 60 Output: Urine 485 515 555 Other: Voiding Method Indwelling Catheter Indwelling Catheter Indwelling Catheter ABP, PAP, CO, CI - Last Documented Arterial Blood Pressure 109/53 - Labs CBC & Chem 7: 06/13/24 03:21 06/13/24 03:21 Labs: Abnormal Lab Results - Last 24 Hours (Table) 06/12/24 06/12/24 06/13/24 Range/Units 17:55 23:59 03:21 WBC (3.8-10.6) k/uL RBC (4.30-5.90) m/uL Hgb (13.0-17.5) gm/dL Hct (39.0-53.0) % RDW (11.5-15.5) % Neutrophils # (Manual) (1.3-7.7) k/uL Monocytes # (Manual) (0-1.0) k/uL Metamyelocytes # (Man) (0) k/uL Myelocytes # (Manual) (0) k/uL Nucleated RBCs (0-0) /100 WBC ABG pH (7.35-7.45) ABG pCO2 (35-45) mmHg ABG pO2 (83-108) mmHg ABG HCO3 (21-25) mmol/L ABG Total CO2 (19-24) mmol/L ABG O2 Saturation (94-97) % Hemoglobin (13.0-17.5) gm/dL BUN 101 H* (9-20) mg/dL Creatinine 2.94 H (0.66-1.25) mg/dL Glucose 222 H (74-99) mg/dL POC Glucose (mg/dL) 239 H 213 H (70-110) mg/dL Calcium 6.4 L* (8.4-10.2) mg/dL Ionized Calcium [place] (4.5-5.3) mg/dL Total Protein 5.8 L (6.3-8.2) g/dL Albumin 2.6 L (3.5-5.0) g/dL 06/13/24 06/13/24 06/13/24 Range/Units 03:21 04:34 05:08 WBC 18.6 H (3.8-10.6) k/uL RBC 3.74 L (4.30-5.90) m/uL Hgb 11.0 L (13.0-17.5) gm/dL Hct 34.2 L (39.0-53.0) % RDW 16.5 H (11.5-15.5) % Neutrophils # (Manual) 15.00 H (1.3-7.7) k/uL Monocytes # (Manual) 1.30 H (0-1.0) k/uL Metamyelocytes # (Man) 0.37 H (0) k/uL Myelocytes # (Manual) 0.19 H (0) k/uL Nucleated RBCs 2 H (0-0) /100 WBC ABG pH 7.22 L (7.35-7.45) ABG pCO2 68 H (35-45) mmHg ABG pO2 75 L (83-108) mmHg ABG HCO3 28 H (21-25) mmol/L ABG Total CO2 30 H (19-24) mmol/L ABG O2 Saturation 93.0 L (94-97) % Hemoglobin 11.1 L (13.0-17.5) gm/dL BUN (9-20) mg/dL Creatinine (0.66-1.25) mg/dL Glucose (74-99) mg/dL POC Glucose (mg/dL) (70-110) mg/dL Calcium (8.4-10.2) mg/dL Ionized Calcium [place] 3.8 L (4.5-5.3) mg/dL Total Protein (6.3-8.2) g/dL Albumin (3.5-5.0) g/dL 06/13/24 06/13/24 Range/Units 06:47 11:45 WBC (3.8-10.6) k/uL RBC (4.30-5.90) m/uL Hgb (13.0-17.5) gm/dL Hct (39.0-53.0) % RDW (11.5-15.5) % Neutrophils # (Manual) (1.3-7.7) k/uL Monocytes # (Manual) (0-1.0) k/uL Metamyelocytes # (Man) (0) k/uL Myelocytes # (Manual) (0) k/uL Nucleated RBCs (0-0) /100 WBC ABG pH (7.35-7.45) ABG pCO2 (35-45) mmHg ABG pO2 (83-108) mmHg ABG HCO3 (21-25) mmol/L ABG Total CO2 (19-24) mmol/L ABG O2 Saturation (94-97) % Hemoglobin (13.0-17.5) gm/dL BUN (9-20) mg/dL Creatinine (0.66-1.25) mg/dL Glucose (74-99) mg/dL POC Glucose (mg/dL) 244 H 215 H (70-110) mg/dL Calcium (8.4-10.2) mg/dL Ionized Calcium [place] (4.5-5.3) mg/dL Total Protein (6.3-8.2) g/dL Albumin (3.5-5.0) g/dL Microbiology - Last 24 Hours (Table) 06/10/24 17:10 Gram Stain - Final Sputum Sputum Culture - Final Streptococcus pneumoniae Natalie albicans 06/10/24 14:04 Blood Culture Gram Stain - Final Blood Blood Culture - Final Streptococcus pneumoniae Staphylococcus hominis Molecular ID 06/10/24 17:19 Nasal Screen MRSA/MSSA - Final Nasal Swab
[2024-06-13] MEDS: HYDROmorphone 1 MG/ML 1 ML SYRINGE IVP PRN (13:38)
--- NOTE | 2024-06-13 16:00 | P.PN ---
Subjective Progress Note Date: 06/13/24 69-year-old male patient came into the emergency department for shortness of breath. According to the significant other, the patient was sick approximately a week ago and his condition has been progressively getting worse. The patient has been falling. He has been having difficulties in keeping himself up and moving around over the past 24 hours. Based on that, he came into the emergency department. His initial pulse ox was 60% and he was placed on a BiPAP and rapidly following that, the patient was intubated and placed on the mechanical ventilator. Chest x-ray at time of admission showed extensive pneumonia with left upper lobe consolidation and air bronchograms and bibasilar pulmonary inf iltrates. Patient tested positive for influenza A. Postintubation, the patient's blood gases showed a pH of 7.36 with a pCO2 of 43 and pO2 of 60. Nevertheless, by the time he arrived to the ICU, the patient was again hypoxic with a pulse ox of 78%. Necessary ventilator changes were done and currently the patient is in a rate of 26, tidal volume of 375, PEEP of 24 with an FiO2 of 100% and expiratory pause of 0.2 ms. The blood gas showed a pH of 7.16 with a pCO2 of 77 and pO2 of 66. Triple-lumen catheter was established in the left IJ. Arterial line was also established. The patient is currently on Tamiflu. He was also started on broad-spectrum antibiotics utilizing a combination of c efepime Zithromax and vancomycin. Started on systemic steroids. Hemodynamically stable. No hypotension. Cardiac rhythm is sinus. According to the significant other, he has history of paroxysmal atrial fibrillation and the patient has undergone ablation. Cardiac rhythm is sinus. He also has hy pertension. He is a former smoker. Does not utilize any form of oxygen therapy or inhalers on outpatient basis. No history of bronchial asthma. No history of COPD. No history of any congestion or heart failure. The white cell count of 15.3 with hemoglobin 15.8 and a platelet count of 265. Normal coagulation profile. BUN is 63 with a creatinine 1.42 and a sodium levels at 140 with a potassium level of 4.5. Initial lactic acid level was at 3.8 and dropped down to 2.0. The patient is currently on normal saline at rate of 100 cc an hour. Furthermore, he is sedated with propofol and paralytics with Bumex. In the intensive care unit. 06/11/2024, the patient is being seen for a follow-up. This morning, the patient remains on propofol running at 50 mcg/kg/min and the patient is also paralyzed with Nimbex at 1 mcg/kg/h. Remains on assist-control mode of mechanical ventilation. Rate is 32 with a tidal volume of 400, FiO2 is 100% with a PEEP of 24. Morning blood gases showed a pH of 7.05 with a pCO2 being more than 98 and pO2 was 102. Chest x-ray shows diffuse bilateral pulmonary infiltrates, slightly worse compared to yesterday. Hemodynamically, the patient was given a total of 3 L of IV fluids. Started on bicarb infusion which is running at 100 cc an hour. Patient is on norepinephrine running at 0.5 mcg/kg/min and vasopressin at 0.04 units. Urine output is extremely low almost absent and the patient has developed an acute kidney injury. Overall fluid balance is +6.3 L over the past 24 hours. The white cell count of 27 with a hemoglobin 12.1 and a platelet count of 311. Sodium is at 140, potassium is at 5.4, chloride 104 and bicarb is 28. BUN 66 with a creatinine of 2.1. Based on the morning blood gases, I dropped the PEEP down to 20, I removed the inspiratory pause. I brought up the tidal volume to 450 and increase the respirate up to 34. Most recent peak airway pressure is 37. Cervical pressure is 33. The subsequent blood gas obtained showed a pH of 7.11 with a pCO2 of 88 and a pO2 of 138. Based on that, the PEEP was dropped down to 18. The patient is currently on a tidal volume of 450 with a respiratory rate of 34. FiO2 was dropped down to 80%. The patient will be started on enteral feeding for nutritional support. Afebrile. Remains on broad-spectrum antibiotics. The patient on a combination of cefepime, Zithromax and vancomycin. The patient is also on Tamiflu. The patient on IV Solu-Medrol. 06/12/2024, the patient is being seen for a follow-up. Remains intubated on mechanical ventilator. Remains sedated and paralyzed. The patient is currently on propofol running at 50 mcg/kg/min and the patient is also on Nimbex at 1 mcg/kg/min. The patient remains on mechanical ventilator, assist-control mode at rate of 34, tidal volume of 450, FiO2 of 80% with a PEEP of 18. pH is 7.21 with a pCO2 of 73 and pO2 of 92. Peak airway pressure 37 in the setting of a pressure of 31. The patient remains in atrial fibrillation. The patient remains on amiodarone drip which is running at 0.5 mg/min. Patient remains on pressors. Patient is on norepinephrine at 0.5 mcg/kg/min and vasopressin 0.04 units. Urine output is in order of 20 to 30 cc an hour. The patient is in a positive fluid balance. The patient remains on a bicarb drip at rate of 100 cc an hour. He is receiving enteral feeding for nutritional support with vital HP at rate of 33 cc an hour. Noted his blood cultures came back positive for streptococcal pneumoniae and a sputum sample was also positive for Streptococcus and the patient has a pneumococcal pneumonia on top of his influenza A infection. The follow-up chest x-ray from today shows extensive bilateral consolidation there is worsening in the right lower lobe consolidation and persistent left upper lobe pulmonary infiltrate. The patient remains on a combination of cefepime, Zithromax and vancomycin. The patient remains on Tamiflu. The patient remains on IV Solu-Medrol. The patient remains on Levemir 12 units twice daily and NovoLog/scale coverage. The patient remains on IV Solu-Medrol.Blood work from today shows a WBC count of 20.8, hemoglobin 11.6 and a platelet count of 2 9. Patient also has a sodium level of 141, potassium level of 4.3, BUN is 82 with a creatinine of 2.7 chloride is 102 with a bicarb level of 28. Calcium levels at 6.2, ionized calcium is at 3.8, low. Magnesium is at 3.2. LFTs are normal. On 06/13/2024, the patient is being seen for a follow-up. The patient remains intubated on mechanical ventilator. The patient is on propofol running at 50 mcg/kg/min and the patient is also on Nimbex for paralysis. Noted the patient was given paralytic holiday yesterday. He became asynchronous on mechanical ventilator and based on that Nimbex was restarted. Another paralytic holiday will be given to this patient today. The patient remains on mechanical ventilator assist-control at rate of 34, tidal volume of 450, FiO2 of 70% with a PEEP of 18. Blood gas showed a pH of 7.22 with a pCO2 of 68 and pO2 of 75. The follow-up chest x-ray was done today and the patient was found to have slight improvement in the right lower lobe consolidation. The patient continues to have a left upper lobe consolidation. All of the lines and the tubes are still in place. The patient has a positive fluid balance of 5.1 L. IV fluids are currently at KVO. The patient is on vital high-protein at rate of 33 cc an hour. Remains on pressors. Urine output is in order 30 cc an hour. Blood sugars are elevated. In terms of antibiotic coverage, the patient remains on a combination of IV Rocephin and vancomycin. The patient remains on Tamiflu. The patient remains on IV Solu-Medrol.In terms of blood work from today, the patient's white cell count remains elevated at 18.6, hemoglobin 11 and a platelet count of 195. The BUN is at 101 with a creatinine of 2.9. Sodium levels at 141 with a potassium level of 5. Bicarb is at 26. The calcium level is at 6.4 and ionized calcium is 3.8, replaced. LFTs are normal. Objective - Vital Signs Vital signs: Vital Signs Temp 98.8 F 06/13/24 12:00 Pulse 105 H 06/13/24 15:27 Resp 34 H 06/13/24 15:15 BP 128/57 06/13/24 01:45 Pulse Ox 91 L 06/13/24 15:15 FiO2 70 06/13/24 15:05 Intake & Output 06/12/24 06/13/24 06/13/24 18:59 06:59 18:59 Intake Total 3857.907 2327.086 1439.460 Output Total 485 515 755 Balance 3372.907 1812.086 684.460 Weight 126.2 kg 126.2 kg Intake: IV 1836 446 364 0.9% NS KVO 210 120 Calcium Gluconate in NaCl 100 2 gm In Saline 1 100ml. bag @ 100 mls/hr IVPB ONCE ONE Rx#:[id number] Cefepime 2 gm In Sodium 100 Chloride 0.9% 50 ml @ 100 mls/hr IVPB Q12H [facility] Rx# :[id number] Dextrose 5% in Water 1, 1200 100 000 ml @ 100 mls/hr IV . [id number] [facility] with Sodium Bicarb (1 Meq/ml) 150 ml Rx#:[id number] Pressure Bag (0.9 sodium 36 36 27 chloride) Vancomycin 1,500 mg In 500 Sodium Chloride 0.9% 500 ml 500 ml @ 167 mls/hr IVPB ONCE ONE Rx#: [id number] Vancomycin 1,500 mg In 167 Sodium Chloride 0.9% 500 ml 500 ml @ 167 mls/hr IVPB Q24H [facility] Rx#: [id number] cefTRIAXone 2 gm In 50 Sodium Chloride 0.9% 50 ml @ 100 mls/hr IVPB Q24HR [facility] Rx#:[id number] Intake, IV Titration 4243.940 5887.086 710.460 Amount Amiodarone 450 mg In 250 Dextrose 5% in Water 250 ml @ 0.5 MG/MIN 16.667 mls/hr IV .Q15H [facility] Rx#: [id number] Cisatracurium 200 mg In 42.308 0 81.853 Sodium Chloride 0.9% 180 ml @ 1 MCG/KG/MIN 5.987 mls/hr IV .Q24H [facility] Rx#: [id number] Heparin Sod,Pork in 0.45% 88.167 NaCl 25,000 unit In 0.45 % NaCl 1 250ml.bag @ 8. 375 UNITS/KG/HR 10 mls/hr IV .Q24H [facility] Rx#: [id number] Norepinephrine 8 mg In 1032.000 626.507 403.573 Sodium Chloride 0.9% 250 ml @ 0.03 MCG/KG/MIN 6. 589 mls/hr IV .Q24H [facility] Rx#:[id number] Vasopressin 20 unit In 51 51 51 Sodium Chloride 0.9% 50 ml @ 0.03 UNITS/MIN 4.59 mls/hr IV .Q11H7M [facility] Rx# :[id number] propofoL 1,000 mg In 290.599 379.412 174.034 Empty Bag 1 bag @ 15 MCG/ KG/MIN 8.981 mls/hr IV . Q11H9M [facility] Rx#:[id number] Oral 120 0 Tube Feeding 396 396 305 Other 90 90 60 Output: Urine 485 515 755 Other: Voiding Method Indwelling Catheter Indwelling Catheter Indwelling Catheter ABP, PAP, CO, CI - Last Documented Arterial Blood Pressure 106/49 - Exam The patient appeared well nourished and normally developed. Vital signs as documented. The patient is sedated. The patient is paralyzed. Remains on mechanical ventilator. Orogastric orotracheal tube are both in place. Head exam is unremarkable. No scleral icterus or corneal arcus noted. Neck is without jugular venous distension, thyromegaly, or carotid bruits. Carotid upstrokes are brisk bilaterally. The patient has a left IJ triple-lumen catheter in place Lungs are clear to auscultation and percussion. Diminished breath sound bilateral lung with bibasilar crackles Cardiac exam reveals the PMI to be normally sized and situated. Rhythm is regular. First and second heart sounds normal. No murmurs, rubs or gallops. Abdominal exam reveals normal bowel sounds, no masses, no organomegaly and no aortic enlargement. Extremities are nonedematous and both femoral and pedal pulses are normal. Examination of the skin revealed no evidence of significant rashes, suspicious appearing nevi or other concerning lesions. Neurologically, the patient is a sedated and paralyzed. - Labs CBC & Chem 7: 06/13/24 03:21 06/13/24 03:21 Labs: Abnormal Lab Results - Last 24 Hours (Table) 06/12/24 06/12/24 06/13/24 Range/Units 17:55 23:59 03:21 WBC (3.8-10.6) k/uL RBC (4.30-5.90) m/uL Hgb (13.0-17.5) gm/dL Hct (39.0-53.0) % RDW (11.5-15.5) % Neutrophils # (Manual) (1.3-7.7) k/uL Monocytes # (Manual) (0-1.0) k/uL Metamyelocytes # (Man) (0) k/uL Myelocytes # (Manual) (0) k/uL Nucleated RBCs (0-0) /100 WBC APTT (22.0-30.0) sec ABG pH (7.35-7.45) ABG pCO2 (35-45) mmHg ABG pO2 (83-108) mmHg ABG HCO3 (21-25) mmol/L ABG Total CO2 (19-24) mmol/L ABG O2 Saturation (94-97) % Hemoglobin (13.0-17.5) gm/dL BUN 101 H* (9-20) mg/dL Creatinine 2.94 H (0.66-1.25) mg/dL Glucose 222 H (74-99) mg/dL POC Glucose (mg/dL) 239 H 213 H (70-110) mg/dL Calcium 6.4 L* (8.4-10.2) mg/dL Ionized Calcium Juan Pablo (4.5-5.3) mg/dL Total Protein 5.8 L (6.3-8.2) g/dL Albumin 2.6 L (3.5-5.0) g/dL 06/13/24 06/13/24 06/13/24 Range/Units 03:21 04:34 05:08 WBC 18.6 H (3.8-10.6) k/uL RBC 3.74 L (4.30-5.90) m/uL Hgb 11.0 L (13.0-17.5) gm/dL Hct 34.2 L (39.0-53.0) % RDW 16.5 H (11.5-15.5) % Neutrophils # (Manual) 15.00 H (1.3-7.7) k/uL Monocytes # (Manual) 1.30 H (0-1.0) k/uL Metamyelocytes # (Man) 0.37 H (0) k/uL Myelocytes # (Manual) 0.19 H (0) k/uL Nucleated RBCs 2 H (0-0) /100 WBC APTT (22.0-30.0) sec ABG pH 7.22 L (7.35-7.45) ABG pCO2 68 H (35-45) mmHg ABG pO2 75 L (83-108) mmHg ABG HCO3 28 H (21-25) mmol/L ABG Total CO2 30 H (19-24) mmol/L ABG O2 Saturation 93.0 L (94-97) % Hemoglobin 11.1 L (13.0-17.5) gm/dL BUN (9-20) mg/dL Creatinine (0.66-1.25) mg/dL Glucose (74-99) mg/dL POC Glucose (mg/dL) (70-110) mg/dL Calcium (8.4-10.2) mg/dL Ionized Calcium Juan Pablo 3.8 L (4.5-5.3) mg/dL Total Protein (6.3-8.2) g/dL Albumin (3.5-5.0) g/dL 06/13/24 06/13/24 06/13/24 Range/Units 06:47 11:45 13:15 WBC (3.8-10.6) k/uL RBC (4.30-5.90) m/uL Hgb (13.0-17.5) gm/dL Hct (39.0-53.0) % RDW (11.5-15.5) % Neutrophils # (Manual) (1.3-7.7) k/uL Monocytes # (Manual) (0-1.0) k/uL Metamyelocytes # (Man) (0) k/uL Myelocytes # (Manual) (0) k/uL Nucleated RBCs (0-0) /100 WBC APTT 42.5 H (22.0-30.0) sec ABG pH (7.35-7.45) ABG pCO2 (35-45) mmHg ABG pO2 (83-108) mmHg ABG HCO3 (21-25) mmol/L ABG Total CO2 (19-24) mmol/L ABG O2 Saturation (94-97) % Hemoglobin (13.0-17.5) gm/dL BUN (9-20) mg/dL Creatinine (0.66-1.25) mg/dL Glucose (74-99) mg/dL POC Glucose (mg/dL) 244 H 215 H (70-110) mg/dL Calcium (8.4-10.2) mg/dL Ionized Calcium Juan Pablo (4.5-5.3) mg/dL Total Protein (6.3-8.2) g/dL Albumin (3.5-5.0) g/dL Microbiology - Last 24 Hours (Table) 06/10/24 17:10 Gram Stain - Final Sputum Sputum Culture - Final Streptococcus pneumoniae Natalie albicans 06/10/24 14:04 Blood Culture Gram Stain - Final Blood Blood Culture - Final Streptococcus pneumoniae Staphylococcus hominis Molecular ID 06/10/24 17:19 Nasal Screen MRSA/MSSA - Final Nasal Swab Assessment and Plan Plan: Acute hypoxic respiratory failure secondary to bilateral pneumococcal pneumonia and secondary sepsis. The patient remains intubated on mechanical ventilator. Oxygenation is stable. Acid-base status is improved on follow-up blood gas. The chest x-ray from today shows some improvement in the right lower lobe consolidation. The patient continues to have bilateral airspace disease. Bilateral pneumococcal pneumonia following an acute influenza A infection. The patient's sputum sample was positive for streptococcal pneumonia and blood cultures were also positive. There is an obviously a a bacterial superinfection on top of his influenza A infection. The patient has extensive bilateral consolidation, infiltrate left upper lobe is stable and there is dense consolidation in the right lower lobe. The patient remains on a combination of IV Rocephin and vancomycin. Septic shock, second pneumococcal pneumonia with bacteremia. Patient remains on high-dose pressors and the patient is currently on a combination norepinephrine and vasopressin. Acute kidney injury, the patient continues to be in renal failure and the creatinine is on the rise. Nevertheless, is producing around 30 cc an hour of urine output. No significant acidosis and the serum bicarb is within normal limits. The patient is currently off bicarb infusion Acute leukocytosis, white cell count is still elevated Atrial fibrillation with rapid ventricular response, currently on amiodarone . Rate is under better control for now. Hypertension Plan Keep the patient sedated with propofol and paralyzed with Nimbex Will give the patient another paralytic holiday No ventilator changes for today Give the patient a dose of Lasix 80 mg IV push IV fluids are currently at KVO Continue Tamiflu 75 mg p.o. twice a day Continue IV Solu-Medrol 60 mg every 6 hours Switched antibiotics to Rocephin 2 g every 24 hours and vancomycin will be continued for now Blood cultures sputum cultures positive for Streptococcus pneumonia Continue pressors and the patient is still on a combination of norepinephrine an d vasopressin. Norepinephrine dose will be gradually weaned off. Obtain an echocardiogram shows a preserved LV function Continue enteral feeding for nutritional support Lovenox 40 mg subcu for DVT prophylaxis IV Protonix Monitor white cell count Monitor renal function and urine output Continue oral amiodarone 400 mg p.o. twice a day Continue IV heparin Condition is critical. Will monitor oxygenation very closely. This is a critical care evaluation that was done more than 40 minutes. Cond ition is critical at this point in time. I updated the family regarding his condition. Spoke with the significant other of the brother at the bedside. Time with Patient: Greater than 30
[2024-06-13 17:41] LABS: Glucose,Whole Blood 224 mg/dL (70-110)
[2024-06-13] MEDS ORDERED: INSULIN DETEMIR (LEVEMIR) 100 UNIT/ML SYR SQ SCH (21:00)
[2024-06-13] MEDS ORDERED: INSULIN GLARGINE (LANTUS) 100 UNIT/ML SYR SQ SCH (21:00)
[2024-06-13] MEDS: INSULIN GLARGINE (LANTUS) 100 UNIT/ML SYR SQ SCH (21:16)
[2024-06-14 00:44] LABS: Glucose,Whole Blood 266 mg/dL (70-110)
[2024-06-14 04:59] LABS: Anisocytosis Slight; HCT 32.1 % (39.0-53.0); HGB 10.3 gm/dL (13.0-17.5); Hypochromasia Moderate; MCH 29.5 pg (25.0-35.0); MCHC 32.2 g/dL (31.0-37.0); MCV 91.5 fL (80.0-100.0); Platelet Count 193 k/uL (150-450); RBC 3.51 m/uL (4.30-5.90); RDW 16.1 % (11.5-15.5); WBC 18.5 k/uL (3.8-10.6)
[2024-06-14 05:32] LABS: African American GFR (CKD) 26 (>60 ml/min/1.73 sqM); Anion Gap 11 mmol/L; Carbon Dioxide 27 mmol/L (22-30); Chloride 103 mmol/L (98-107); Glucose 249 mg/dL (74-99); Non-African American GFR(CKD) 22 (>60 ml/min/1.73 sqM); Potassium 5.1 mmol/L (3.5-5.1); Sodium 141 mmol/L (137-145)
[2024-06-14 05:55] LABS: ABG Base Excess -0.2 mmol/L; ABG HCO3 27 mmol/L (21-25); ABG Oxygen Saturation 96.3 % (94-97); ABG PCO2 59 mmHg (35-45); ABG PH 7.28 (7.35-7.45); ABG PO2 89 mmHg (83-108); ABG TCO2 29 mmol/L (19-24); Allen Test Performed? Yes
[2024-06-14 05:59] LABS: Blood Urea Nitrogen 124 mg/dL (9-20)
[2024-06-14 06:23] LABS: Glucose,Whole Blood 247 mg/dL (70-110)
--- NOTE | 2024-06-14 07:01 | XR ---
EXAMINATION TYPE: XR chest 1V portable DATE OF EXAM: 06/14/2024 5:02 AM COMPARISON: 06/13/2019 CLINICAL INDICATION: Male, 69 years old with history of mechanical ventilation, TECHNIQUE: XR chest 1V portable view(s) obtained. FINDINGS: The heart size is mildly prominent. The pulmonary vasculature is prominent. Left upper and right lower lobe consolidations remain present Endotracheal tube tip is 5.7 cm The marie. Nasogastric tube transverses the field of view. Left central venous catheter tip is in th e region of the region of the superior vena cava. IMPRESSION: 1. Left upper and right lower lung infiltrates, stable. 2. Findings in catheters discussed above [facility], , 06/14/2024 6:58 AM
--- NOTE | 2024-06-14 07:41 | P.PN ---
Subjective Progress Note Date: 06/14/24 PROGRESS NOTE The patient is a 69-year-old male who presented with symptoms of progressive dyspnea, diagnosed with pneumonia and influenza A, requiring mechanical ventilation. Cardiology consultation was requested because of atrial fibrillation. The patient is intubated and sedated. He has a history of atrial fibrillation, status post ablation in January 2024. He was in sinus mechanism on presentation and back in atrial fibrillation at this time with episode of rapid ventricle response. He is on vasopressors. He had an echocardiogram that showed a preserved systolic function, the study was technically difficult. The patient has been anticoagulated as an outpatient. Her chest x-ray shows severe infiltration bilaterally consistent with a pneumonia. Presentation he had evidence of acute renal injury and hypotension related to sepsis. He has been initiated on amiodarone and he is on vasopressin in addition to norepinephrine June 13: The patient remains intubated and sedated. He had episodes of paroxysmal atrial fibrillation. He is in sinus mechanism at this time. He continues to be on norepinephrine. His urine output is stable. His chest x-ray shows bilateral infiltrate consistent with his pneumonia. There is no evidence of ventricular ectopic activity.There is significant worsening of his renal function with a BUN up to 101 with a creatinine of 2.94. Tolerating tube feeding June 14: The patient remains intubated and sedated. He is in atrial fibrillation with controlled ventricular response. He is on the lower dose of norepinephrine. His urine output has been stable and he is tolerating tube feeding. He had no evidence of ventricular ectopic activity. He continues to have significant infiltrate on his chest x-ray. Medications: IV heparin, Rocephin, insulin, methylprednisolone, metoprolol tartrate 25 mg twice a day, Tamiflu, vancomycin, amiodarone 400 mg twice a day, Lasix 80 mg IV daily PHYSICAL EXAMINATION: Blood pressure 129/50 heart rate 95, intubated and sedated LUNGS: Clear to auscultation anteriorly HEART: Irregular rate and rhythm, S1, S2. No S3. Systolic ejection murmur ABDOMEN: Soft, positive bowel sounds, no organomegaly EXTREMETIES: +1-2 edema LAB: Hemoglobin 10.3, WBC 18.5, pH 7.28, pCO2 59 with a pO2 of 89. BUN 124 with a creatinine of 2.76. IMPRESSION: 1. Acute respiratory failure with bilateral pneumonia and influenza A requiring mechanical ventilation 2. Paroxysmal atrial fibrillation status post ablation in 2023, back in atrial fibrillation 3. Acute renal injury related to the sepsis and hypotension, worsening 4. Hypotension, improved PLAN: 1. Continue supportive care 2. Follow renal functions closely. The patient was started on IV diuretics yesterday 3. Continue IV anticoag relation for now 4. Prognosis is guarded Objective - Vital Signs Vital signs: Vital Signs Temp 98.2 F 06/14/24 04:00 Pulse 105 H 06/14/24 07:00 Resp 34 H 06/14/24 07:00 BP 128/57 06/13/24 19:00 Pulse Ox 94 L 06/14/24 07:00 FiO2 70 06/14/24 04:00 Intake & Output 06/13/24 06/14/24 06/14/24 18:59 06:59 18:59 Intake Total 2477.154 2034.301 58 Output Total 885 970 115 Balance 8961.889 6753.301 -57 Weight 126.2 kg 126.8 kg Intake: IV 433 276 23 0.9% NS KVO 180 240 20 Pressure Bag (0.9 sodium 36 36 3 chloride) Vancomycin 1,500 mg In 167 Sodium Chloride 0.9% 500 ml 500 ml @ 167 mls/hr IVPB Q24H [facility] Rx#: [id number] cefTRIAXone 2 gm In 50 Sodium Chloride 0.9% 50 ml @ 100 mls/hr IVPB Q24HR [facility] Rx#:[id number] Intake, IV Titration 8656.390 8212.301 Amount Cisatracurium 200 mg In 81.853 Sodium Chloride 0.9% 180 ml @ 1 MCG/KG/MIN 5.987 mls/hr IV .Q24H [facility] Rx#: [id number] Heparin Sod,Pork in 0.45% 160.494 171.812 NaCl 25,000 unit In 0.45 % NaCl 1 250ml.bag @ 8. 375 UNITS/KG/HR 10 mls/hr IV .Q24H [facility] Rx#: [id number] Norepinephrine 8 mg In 837.344 710.896 Sodium Chloride 0.9% 250 ml @ 0.03 MCG/KG/MIN 6. 589 mls/hr IV .Q24H [facility] Rx#:[id number] Vasopressin 20 unit In 91.188 51 Sodium Chloride 0.9% 50 ml @ 0.03 UNITS/MIN 4.59 mls/hr IV .Q11H7M [facility] Rx# :[id number] propofoL 1,000 mg In 373.275 274.593 Empty Bag 1 bag @ 15 MCG/ KG/MIN 8.981 mls/hr IV . Q11H9M [facility] Rx#:[id number] Tube Feeding 410 420 35 Other 90 130 Output: Urine 885 970 115 Other: Voiding Method Indwelling Catheter Indwelling Catheter ABP, PAP, CO, CI - Last Documented Arterial Blood Pressure 129/52 - Labs CBC & Chem 7: 06/14/24 04:40 06/14/24 04:40 Labs: Abnormal Lab Results - Last 24 Hours (Table) 06/13/24 06/13/24 06/13/24 Range/Units 11:45 13:15 17:46 WBC (3.8-10.6) k/uL RBC (4.30-5.90) m/uL Hgb (13.0-17.5) gm/dL Hct (39.0-53.0) % RDW (11.5-15.5) % APTT 42.5 H (22.0-30.0) sec ABG pH (7.35-7.45) ABG pCO2 (35-45) mmHg ABG HCO3 (21-25) mmol/L ABG Total CO2 (19-24) mmol/L Hemoglobin (13.0-17.5) gm/dL BUN (9-20) mg/dL Creatinine (0.66-1.25) mg/dL Glucose (74-99) mg/dL POC Glucose (mg/dL) 215 H 224 H (70-110) mg/dL Calcium (8.4-10.2) mg/dL 06/14/24 06/14/24 06/14/24 Range/Units 00:43 04:40 04:40 WBC 18.5 H (3.8-10.6) k/uL RBC 3.51 L (4.30-5.90) m/uL Hgb 10.3 L (13.0-17.5) gm/dL Hct 32.1 L (39.0-53.0) % RDW 16.1 H (11.5-15.5) % APTT (22.0-30.0) sec ABG pH (7.35-7.45) ABG pCO2 (35-45) mmHg ABG HCO3 (21-25) mmol/L ABG Total CO2 (19-24) mmol/L Hemoglobin (13.0-17.5) gm/dL BUN 124 H* (9-20) mg/dL Creatinine 2.76 H (0.66-1.25) mg/dL Glucose 249 H (74-99) mg/dL POC Glucose (mg/dL) 266 H (70-110) mg/dL Calcium 7.0 L (8.4-10.2) mg/dL 06/14/24 06/14/24 06/14/24 Range/Units 04:40 05:50 06:21 WBC (3.8-10.6) k/uL RBC (4.30-5.90) m/uL Hgb (13.0-17.5) gm/dL Hct (39.0-53.0) % RDW (11.5-15.5) % APTT 36.0 H (22.0-30.0) sec ABG pH 7.28 L (7.35-7.45) ABG pCO2 59 H (35-45) mmHg ABG HCO3 27 H (21-25) mmol/L ABG Total CO2 29 H (19-24) mmol/L Hemoglobin 10.3 L (13.0-17.5) gm/dL BUN (9-20) mg/dL Creatinine (0.66-1.25) mg/dL Glucose (74-99) mg/dL POC Glucose (mg/dL) 247 H (70-110) mg/dL Calcium (8.4-10.2) mg/dL Microbiology - Last 24 Hours (Table) 06/10/24 17:10 Gram Stain - Final Sputum Sputum Culture - Final Streptococcus pneumoniae Natalie albicans 06/10/24 14:04 Blood Culture Gram Stain - Final Blood Blood Culture - Final Streptococcus pneumoniae Staphylococcus hominis Molecular ID
--- NOTE | 2024-06-14 11:00 | P.PN ---
Subjective Patient is seen for follow-up for acute kidney injury. Renal function is stable Maintained on IV Lasix 80 mg daily FiO2 at 70%. Urine output 70-100 cc an hour Serum creatinine down to 2.7 today. BUN disproportionately elevated from steroids and hypercatabolic state Objective - Vital Signs Vital signs: Vital Signs Temp 99.7 F H 06/14/24 08:00 Pulse 104 H 06/14/24 09:30 Resp 34 H 06/14/24 09:30 BP 128/57 06/13/24 19:00 Pulse Ox 94 L 06/14/24 09:30 FiO2 70 06/14/24 08:28 Intake & Output 06/13/24 06/14/24 06/14/24 18:59 06:59 18:59 Intake Total 2477.154 2034.301 636.697 Output Total 885 970 385 Balance 1184.225 5691.301 251.697 Weight 126.2 kg 126.8 kg Intake: IV 433 276 119 0.9% NS KVO 180 240 60 Pressure Bag (0.9 sodium 36 36 9 chloride) Vancomycin 1,500 mg In 167 Sodium Chloride 0.9% 500 ml 500 ml @ 167 mls/hr IVPB Q24H [facility] Rx#: [id number] cefTRIAXone 2 gm In 50 50 Sodium Chloride 0.9% 50 ml @ 100 mls/hr IVPB Q24HR [facility] Rx#:[id number] Intake, IV Titration 5199.410 0697.301 322.697 Amount Cisatracurium 200 mg In 81.853 Sodium Chloride 0.9% 180 ml @ 1 MCG/KG/MIN 5.987 mls/hr IV .Q24H [facility] Rx#: [id number] Heparin Sod,Pork in 0.45% 160.494 171.812 NaCl 25,000 unit In 0.45 % NaCl 1 250ml.bag @ 8. 375 UNITS/KG/HR 10 mls/hr IV .Q24H [facility] Rx#: [id number] Norepinephrine 8 mg In 837.344 710.896 122.697 Sodium Chloride 0.9% 250 ml @ 0.03 MCG/KG/MIN 6. 589 mls/hr IV .Q24H [facility] Rx#:[id number] Vasopressin 20 unit In 91.188 51 Sodium Chloride 0.9% 50 ml @ 0.03 UNITS/MIN 4.59 mls/hr IV .Q11H7M [facility] Rx# :[id number] propofoL 1,000 mg In 373.275 274.593 200 Empty Bag 1 bag @ 15 MCG/ KG/MIN 8.981 mls/hr IV . Q11H9M [facility] Rx#:[id number] Tube Feeding 410 420 105 Other 90 130 90 Output: Urine 885 970 385 Other: Voiding Method Indwelling Catheter Indwelling Catheter Indwelling Catheter ABP, PAP, CO, CI - Last Documented Arterial Blood Pressure 120/48 - Exam Patient is sedated and on the vent Examination of the heart S1 and S2 Examination the lungs bilateral breath sounds are heard Abdomen is soft obese Examination of lower extremity shows 2+ edema - Labs CBC & Chem 7: 06/14/24 04:40 06/14/24 04:40 Labs: Abnormal Lab Results - Last 24 Hours (Table) 06/13/24 06/13/24 06/13/24 Range/Units 11:45 13:15 17:46 WBC (3.8-10.6) k/uL RBC (4.30-5.90) m/uL Hgb (13.0-17.5) gm/dL Hct (39.0-53.0) % RDW (11.5-15.5) % APTT 42.5 H (22.0-30.0) sec ABG pH (7.35-7.45) ABG pCO2 (35-45) mmHg ABG HCO3 (21-25) mmol/L ABG Total CO2 (19-24) mmol/L Hemoglobin (13.0-17.5) gm/dL BUN (9-20) mg/dL Creatinine (0.66-1.25) mg/dL Glucose (74-99) mg/dL POC Glucose (mg/dL) 215 H 224 H (70-110) mg/dL Calcium (8.4-10.2) mg/dL 06/14/24 06/14/24 06/14/24 Range/Units 00:43 04:40 04:40 WBC 18.5 H (3.8-10.6) k/uL RBC 3.51 L (4.30-5.90) m/uL Hgb 10.3 L (13.0-17.5) gm/dL Hct 32.1 L (39.0-53.0) % RDW 16.1 H (11.5-15.5) % APTT (22.0-30.0) sec ABG pH (7.35-7.45) ABG pCO2 (35-45) mmHg ABG HCO3 (21-25) mmol/L ABG Total CO2 (19-24) mmol/L Hemoglobin (13.0-17.5) gm/dL BUN 124 H* (9-20) mg/dL Creatinine 2.76 H (0.66-1.25) mg/dL Glucose 249 H (74-99) mg/dL POC Glucose (mg/dL) 266 H (70-110) mg/dL Calcium 7.0 L (8.4-10.2) mg/dL 06/14/24 06/14/24 06/14/24 Range/Units 04:40 05:50 06:21 WBC (3.8-10.6) k/uL RBC (4.30-5.90) m/uL Hgb (13.0-17.5) gm/dL Hct (39.0-53.0) % RDW (11.5-15.5) % APTT 36.0 H (22.0-30.0) sec ABG pH 7.28 L (7.35-7.45) ABG pCO2 59 H (35-45) mmHg ABG HCO3 27 H (21-25) mmol/L ABG Total CO2 29 H (19-24) mmol/L Hemoglobin 10.3 L (13.0-17.5) gm/dL BUN (9-20) mg/dL Creatinine (0.66-1.25) mg/dL Glucose (74-99) mg/dL POC Glucose (mg/dL) 247 H (70-110) mg/dL Calcium (8.4-10.2) mg/dL Microbiology - Last 24 Hours (Table) 06/10/24 17:10 Gram Stain - Final Sputum Sputum Culture - Final Streptococcus pneumoniae Natalie albicans 06/10/24 14:04 Blood Culture Gram Stain - Final Blood Blood Culture - Final Streptococcus pneumoniae Staphylococcus hominis Molecular ID Assessment and Plan Assessment: 1. Acute kidney injury, oliguric ATN from severe hypotension and sepsis. UA shows 1+ protein moderate blood. Ultrasound is unremarkable. Previous creatinine 1.0 on 02/01/2024 2. Septic shock from pneumonia, viral and bacterial pneumonia as well. Sputum culture grew Streptococcus pneumonia 3. Influenza A 4. Severe respiratory acidosis from respiratory failure slowly improving 5. Chronic A-fib status post cardiac ablation Plan: Continue with IV Lasix Continue to avoid nephrotoxic agents Continue with antibiotics. Vasopressors are being decreased.
[2024-06-14 12:05] LABS: Glucose,Whole Blood 229 mg/dL (70-110)
--- NOTE | 2024-06-14 14:35 | P.PN ---
Subjective Progress Note Date: 06/14/24 69-year-old male patient came into the emergency department for shortness of breath. According to the significant other, the patient was sick approximately a week ago and his condition has been progressively getting worse. The patient has been falling. He has been having difficulties in keeping himself up and moving around over the past 24 hours. Based on that, he came into the emergency department. His initial pulse ox was 60% and he was placed on a BiPAP and rapidly following that, the patient was intubated and placed on the mechanical ventilator. Chest x-ray at time of admission showed extensive pneumonia with left upper lobe consolidation and air bronchograms and bibasilar pulmonary inf iltrates. Patient tested positive for influenza A. Postintubation, the patient's blood gases showed a pH of 7.36 with a pCO2 of 43 and pO2 of 60. Nevertheless, by the time he arrived to the ICU, the patient was again hypoxic with a pulse ox of 78%. Necessary ventilator changes were done and currently the patient is in a rate of 26, tidal volume of 375, PEEP of 24 with an FiO2 of 100% and expiratory pause of 0.2 ms. The blood gas showed a pH of 7.16 with a pCO2 of 77 and pO2 of 66. Triple-lumen catheter was established in the left IJ. Arterial line was also established. The patient is currently on Tamiflu. He was also started on broad-spectrum antibiotics utilizing a combination of c efepime Zithromax and vancomycin. Started on systemic steroids. Hemodynamically stable. No hypotension. Cardiac rhythm is sinus. According to the significant other, he has history of paroxysmal atrial fibrillation and the patient has undergone ablation. Cardiac rhythm is sinus. He also has hy pertension. He is a former smoker. Does not utilize any form of oxygen therapy or inhalers on outpatient basis. No history of bronchial asthma. No history of COPD. No history of any congestion or heart failure. The white cell count of 15.3 with hemoglobin 15.8 and a platelet count of 265. Normal coagulation profile. BUN is 63 with a creatinine 1.42 and a sodium levels at 140 with a potassium level of 4.5. Initial lactic acid level was at 3.8 and dropped down to 2.0. The patient is currently on normal saline at rate of 100 cc an hour. Furthermore, he is sedated with propofol and paralytics with Bumex. In the intensive care unit. 06/11/2024, the patient is being seen for a follow-up. This morning, the patient remains on propofol running at 50 mcg/kg/min and the patient is also paralyzed with Nimbex at 1 mcg/kg/h. Remains on assist-control mode of mechanical ventilation. Rate is 32 with a tidal volume of 400, FiO2 is 100% with a PEEP of 24. Morning blood gases showed a pH of 7.05 with a pCO2 being more than 98 and pO2 was 102. Chest x-ray shows diffuse bilateral pulmonary infiltrates, slightly worse compared to yesterday. Hemodynamically, the patient was given a total of 3 L of IV fluids. Started on bicarb infusion which is running at 100 cc an hour. Patient is on norepinephrine running at 0.5 mcg/kg/min and vasopressin at 0.04 units. Urine output is extremely low almost absent and the patient has developed an acute kidney injury. Overall fluid balance is +6.3 L over the past 24 hours. The white cell count of 27 with a hemoglobin 12.1 and a platelet count of 311. Sodium is at 140, potassium is at 5.4, chloride 104 and bicarb is 28. BUN 66 with a creatinine of 2.1. Based on the morning blood gases, I dropped the PEEP down to 20, I removed the inspiratory pause. I brought up the tidal volume to 450 and increase the respirate up to 34. Most recent peak airway pressure is 37. Cervical pressure is 33. The subsequent blood gas obtained showed a pH of 7.11 with a pCO2 of 88 and a pO2 of 138. Based on that, the PEEP was dropped down to 18. The patient is currently on a tidal volume of 450 with a respiratory rate of 34. FiO2 was dropped down to 80%. The patient will be started on enteral feeding for nutritional support. Afebrile. Remains on broad-spectrum antibiotics. The patient on a combination of cefepime, Zithromax and vancomycin. The patient is also on Tamiflu. The patient on IV Solu-Medrol. 06/12/2024, the patient is being seen for a follow-up. Remains intubated on mechanical ventilator. Remains sedated and paralyzed. The patient is currently on propofol running at 50 mcg/kg/min and the patient is also on Nimbex at 1 mcg/kg/min. The patient remains on mechanical ventilator, assist-control mode at rate of 34, tidal volume of 450, FiO2 of 80% with a PEEP of 18. pH is 7.21 with a pCO2 of 73 and pO2 of 92. Peak airway pressure 37 in the setting of a pressure of 31. The patient remains in atrial fibrillation. The patient remains on amiodarone drip which is running at 0.5 mg/min. Patient remains on pressors. Patient is on norepinephrine at 0.5 mcg/kg/min and vasopressin 0.04 units. Urine output is in order of 20 to 30 cc an hour. The patient is in a positive fluid balance. The patient remains on a bicarb drip at rate of 100 cc an hour. He is receiving enteral feeding for nutritional support with vital HP at rate of 33 cc an hour. Noted his blood cultures came back positive for streptococcal pneumoniae and a sputum sample was also positive for Streptococcus and the patient has a pneumococcal pneumonia on top of his influenza A infection. The follow-up chest x-ray from today shows extensive bilateral consolidation there is worsening in the right lower lobe consolidation and persistent left upper lobe pulmonary infiltrate. The patient remains on a combination of cefepime, Zithromax and vancomycin. The patient remains on Tamiflu. The patient remains on IV Solu-Medrol. The patient remains on Levemir 12 units twice daily and NovoLog/scale coverage. The patient remains on IV Solu-Medrol.Blood work from today shows a WBC count of 20.8, hemoglobin 11.6 and a platelet count of 2 9. Patient also has a sodium level of 141, potassium level of 4.3, BUN is 82 with a creatinine of 2.7 chloride is 102 with a bicarb level of 28. Calcium levels at 6.2, ionized calcium is at 3.8, low. Magnesium is at 3.2. LFTs are normal. On 06/13/2024, the patient is being seen for a follow-up. The patient remains intubated on mechanical ventilator. The patient is on propofol running at 50 mcg/kg/min and the patient is also on Nimbex for paralysis. Noted the patient was given paralytic holiday yesterday. He became asynchronous on mechanical ventilator and based on that Nimbex was restarted. Another paralytic holiday will be given to this patient today. The patient remains on mechanical ventilator assist-control at rate of 34, tidal volume of 450, FiO2 of 70% with a PEEP of 18. Blood gas showed a pH of 7.22 with a pCO2 of 68 and pO2 of 75. The follow-up chest x-ray was done today and the patient was found to have slight improvement in the right lower lobe consolidation. The patient continues to have a left upper lobe consolidation. All of the lines and the tubes are still in place. The patient has a positive fluid balance of 5.1 L. IV fluids are currently at KVO. The patient is on vital high-protein at rate of 33 cc an hour. Remains on pressors. Urine output is in order 30 cc an hour. Blood sugars are elevated. In terms of antibiotic coverage, the patient remains on a combination of IV Rocephin and vancomycin. The patient remains on Tamiflu. The patient remains on IV Solu-Medrol.In terms of blood work from today, the patient's white cell count remains elevated at 18.6, hemoglobin 11 and a platelet count of 195. The BUN is at 101 with a creatinine of 2.9. Sodium levels at 141 with a potassium level of 5. Bicarb is at 26. The calcium level is at 6.4 and ionized calcium is 3.8, replaced. LFTs are normal. 06/14/2024, the patient is being seen for a follow-up. Remains intubated on the mechanical ventilator. This morning, the patient is off paralytics and the patient remains on propofol running at 65 mcg/kg/min. Remains on mechanical ventilator assist-control mode rate of 34, tidal volume of 450, FiO2 of 70% with a PEEP of 18. Blood gas showed a pH of 7.28 with a pCO2 of 59 and pO2 of 89. The patient remains hypotensive and remains on norepinephrine. The patient will be taken off vasopressin. Norepinephrine is running at 0.15 mcg/kg/min. Chest x-ray still showing stable bilateral pulmonary consolidation more extensive in the right lower lobe and the left upper lobe. Remains atrial fibrillation. Remains on IV Rocephin. Continues to receive enteral feeding for nutritional support. Remains on IV heparin regarding his ongoing atrial fibrillation. The WBC count is at 18, still elevated with a hemoglobin 10.3 and a platelet count of 193. Sodium is at 141, potassium is 5.1, bicarb is 27, BUN is 124 and creatinine is at 2.76. Despite ongoing renal failure, the patient is producing urine output. The patient was given Lasix and he continues to receive Lasix 80 mg on a daily basis. Rest of the medications remain unchanged. Completing course of Tamiflu. Remains on IV Rocephin. Remains on a combination of metoprolol 25 mg twice daily and amiodarone 4 mg p.o. twice daily for rate control. Objective - Vital Signs Vital signs: Vital Signs Temp 99.3 F 06/14/24 12:00 Pulse 90 06/14/24 13:00 Resp 34 H 06/14/24 13:00 BP 128/57 06/13/24 19:00 Pulse Ox 94 L 06/14/24 13:00 FiO2 70 06/14/24 12:00 Intake & Output 06/13/24 06/14/24 06/14/24 18:59 06:59 18:59 Intake Total 2477.154 2034.301 1300.785 Output Total 209 791 1001 Balance 5007.270 9024.301 205.785 Weight 126.2 kg 126.8 kg Intake: IV 433 276 234 0.9% NS KVO 180 240 160 Pressure Bag (0.9 sodium 36 36 24 chloride) Vancomycin 1,500 mg In 167 Sodium Chloride 0.9% 500 ml 500 ml @ 167 mls/hr IVPB Q24H [facility] Rx#: [id number] cefTRIAXone 2 gm In 50 50 Sodium Chloride 0.9% 50 ml @ 100 mls/hr IVPB Q24HR [facility] Rx#:[id number] Intake, IV Titration 1517.532 7853.301 666.785 Amount Cisatracurium 200 mg In 81.853 Sodium Chloride 0.9% 180 ml @ 1 MCG/KG/MIN 5.987 mls/hr IV .Q24H [facility] Rx#: [id number] Heparin Sod,Pork in 0.45% 160.494 171.812 78.188 NaCl 25,000 unit In 0.45 % NaCl 1 250ml.bag @ 8. 375 UNITS/KG/HR 10 mls/hr IV .Q24H [facility] Rx#: [id number] Norepinephrine 8 mg In 837.344 710.896 250.041 Sodium Chloride 0.9% 250 ml @ 0.03 MCG/KG/MIN 6. 589 mls/hr IV .Q24H [facility] Rx#:[id number] Vasopressin 20 unit In 91.188 51 38.556 Sodium Chloride 0.9% 50 ml @ 0.03 UNITS/MIN 4.59 mls/hr IV .Q11H7M [facility] Rx# :[id number] propofoL 1,000 mg In 373.275 274.593 300 Empty Bag 1 bag @ 15 MCG/ KG/MIN 8.981 mls/hr IV . Q11H9M [facility] Rx#:[id number] Tube Feeding 410 420 280 Other 90 130 120 Output: Urine 366 610 8783 Other: Voiding Method Indwelling Catheter Indwelling Catheter Indwelling Catheter ABP, PAP, CO, CI - Last Documented Arterial Blood Pressure 99/41 - Exam The patient appeared well nourished and normally developed. Vital signs as documented. The patient is sedated. The patient is off paralysis. Remains on mechanical ventilator. Orogastric orotracheal tube are both in place. Head exam is unremarkable. No scleral icterus or corneal arcus noted. Neck is without jugular venous distension, thyromegaly, or carotid bruits. C arotid upstrokes are brisk bilaterally. The patient has a left IJ triple-lumen catheter in place Lungs are clear to auscultation and percussion. Diminished breath sound bilateral lung with bibasilar crackles Cardiac exam reveals the PMI to be normally sized and situated. Rhythm is regular. First and second heart sounds normal. No murmurs, rubs or gallops. Abdominal exam reveals normal bowel sounds, no masses, no organomegaly and no aortic enlargement. Extremities are nonedematous and both femoral and pedal pulses are normal. Examination of the skin revealed no evidence of significant rashes, suspicious appearing nevi or other concerning lesions. Neurologically, the patient is a sedated - Labs CBC & Chem 7: 06/14/24 04:40 06/14/24 04:40 Labs: Abnormal Lab Results - Last 24 Hours (Table) 06/13/24 06/14/24 06/14/24 Range/Units 17:46 00:43 04:40 WBC (3.8-10.6) k/uL RBC (4.30-5.90) m/uL Hgb (13.0-17.5) gm/dL Hct (39.0-53.0) % RDW (11.5-15.5) % APTT (22.0-30.0) sec ABG pH (7.35-7.45) ABG pCO2 (35-45) mmHg ABG HCO3 (21-25) mmol/L ABG Total CO2 (19-24) mmol/L Hemoglobin (13.0-17.5) gm/dL BUN 124 H* (9-20) mg/dL Creatinine 2.76 H (0.66-1.25) mg/dL Glucose 249 H (74-99) mg/dL POC Glucose (mg/dL) 224 H 266 H (70-110) mg/dL Calcium 7.0 L (8.4-10.2) mg/dL 06/14/24 06/14/24 06/14/24 Range/Units 04:40 04:40 05:50 WBC 18.5 H (3.8-10.6) k/uL RBC 3.51 L (4.30-5.90) m/uL Hgb 10.3 L (13.0-17.5) gm/dL Hct 32.1 L (39.0-53.0) % RDW 16.1 H (11.5-15.5) % APTT 36.0 H (22.0-30.0) sec ABG pH 7.28 L (7.35-7.45) ABG pCO2 59 H (35-45) mmHg ABG HCO3 27 H (21-25) mmol/L ABG Total CO2 29 H (19-24) mmol/L Hemoglobin 10.3 L (13.0-17.5) gm/dL BUN (9-20) mg/dL Creatinine (0.66-1.25) mg/dL Glucose (74-99) mg/dL POC Glucose (mg/dL) (70-110) mg/dL Calcium (8.4-10.2) mg/dL 06/14/24 06/14/24 06/14/24 Range/Units 06:21 12:03 12:38 WBC (3.8-10.6) k/uL RBC (4.30-5.90) m/uL Hgb (13.0-17.5) gm/dL Hct (39.0-53.0) % RDW (11.5-15.5) % APTT 47.1 H (22.0-30.0) sec ABG pH (7.35-7.45) ABG pCO2 (35-45) mmHg ABG HCO3 (21-25) mmol/L ABG Total CO2 (19-24) mmol/L Hemoglobin (13.0-17.5) gm/dL BUN (9-20) mg/dL Creatinine (0.66-1.25) mg/dL Glucose (74-99) mg/dL POC Glucose (mg/dL) 247 H 229 H (70-110) mg/dL Calcium (8.4-10.2) mg/dL Microbiology - Last 24 Hours (Table) 06/10/24 17:10 Gram Stain - Final Sputum Sputum Culture - Final Streptococcus pneumoniae Natalie albicans Assessment and Plan Plan: Acute hypoxic respiratory failure secondary to bilateral pneumococcal pneumonia and secondary sepsis. The patient remains intubated on mechanical ventilator. Oxygenation is stable. Acid-base status is improved on follow-up blood gas. The chest x-ray from today shows some improvement in the right lower lobe consolidation. The patient continues to have bilateral airspace disease. No significant changes in the chest x-ray findings on today's evaluation. No significant changes in the blood gases. The patient remains septic, pressor dependent. Bilateral pneumococcal pneumonia following an acute influenza A infection. The patient's sputum sample was positive for streptococcal pneumonia and blood cultures were also positive. There is an obviously a a bacterial superinfection on top of his influenza A infection. The patient has extensive bilateral consolidation, infiltrate left upper lobe is stable and there is dense consolidation in the right lower lobe. The patient remains on a combination of IV Rocephin and vancomycin has been discontinued Septic shock, second pneumococcal pneumonia with bacteremia. Patient remains on high-dose pressors and the patient is currently on a combination norepinephrine and vasopressin. Acute kidney injury, the patient continues to be in renal failure and the creatinine is on the rise. Urine output is adequate and the patient is on Lasix 80 mg IV every 24 hours. The patient is also being followed up by nephrology. Acute leukocytosis, white cell count is still elevated Atrial fibrillation with rapid ventricular response, currently on amiodarone . R controlled rate. Remains on IV heparin. Hypertension Plan Keep the patient sedated with propofol Off paralytics No ventilator changes for today Give the patient a dose of Lasix 80 mg IV push IV fluids are currently at KVO Continue Tamiflu 75 mg p.o. twice a day Continue IV Solu-Medrol 60 mg every 6 hours Switched antibiotics to Rocephin 2 g every 24 hours Blood cultures sputum cultures positive for Streptococcus pneumonia Wean off norepinephrine. The patient is to be taken off vasopressin. Echocardiogram shows a preserved LV function Continue enteral feeding for nutritional support Lovenox 40 mg subcu for DVT prophylaxis IV Protonix modify Lantus insulin to 25 units Twice daily and sliding scale coverage. Monitor white cell count Monitor renal function and urine output Continue oral amiodarone 400 mg p.o. twice a day Continue IV heparin Condition is critical. Will monitor oxygenation very closely. This is a critical care evaluation that was done more than 34 minutes. Condition is critical at this point in time. I updated the family regarding his condition. Spoke with the significant other of the brother at the bedside. No significant improvement in oxygenation. No significant improvement or changes in the chest x-ray findings on today's evaluation. Time with Patient: Greater than 30
--- NOTE | 2024-06-14 15:19 | P.PN ---
Subjective Progress Note Date: 06/14/24 Hospital Course: Patient is a 69-year-old male with past medical history of A-fib status post ablation, hypertension. History obtained from chart review. Per ER note, EMS was called by patient's family for shortness of breath, family reported that multiple family members were sick in the house. They noted his SpO2 to be in 60s on placed him on CPAP with no improvement and he continued to breathe rap idly, spiking fever ER course: Patient was febrile Patient was placed on BiPAP for hypoxia, remained tachypneic and in respiratory distress despite BiPAP. Patient spent 1-1/2-hour on BiPAP with no improvement in his respiratory status, he is tachypneic in 50s, satting in mid to high 80s, decision was made to intubate, no family members available to obtain consent,. Intubated on 06/10, sedated, paralyzed, transferred to ICU, started on treatment for acute hypoxic respiratory failure secondary to bilateral pneumonia, influenza A pneumonia, cefepime, vancomycin, was alternating SOT 06/10. Patient was additionally started on IV Solu-Medrol, sputum and blood cultures obtained, pending. Repeat chest x-ray showed diffuse pulmonary infiltrates worsening from yesterday, blood gases showed severe acidosis with pH of 7.05, patient was started on bicarb drip overnight, his blood pressure dropped and he was started on the BiPAP but required up titration for better BP control., Later vasopressin was initiated. Patient was noted to have very low urine output, worsening kidney function. Nephrology consulted, recommended to continue bicarb drip, IV hydration, kidney ultrasound and UA ordered, showed no obstruction or hydronephrosis. 06/12 bicarb drip discontinued, patient continued on norepinephrine, 0.58. Blood cultures growing strep pneumo, antibiotics de-escalated to ceftriaxone 2 g anshul y. Cardiology consulted for A-fib with RVR, patient was on amiodarone drip, will be switched to oral amiodarone starting 06/13. He is on heparin drip. 06/13: Continued on norepinephrine, titrating down, continued on vasopressin, Nimbex. Received 1 dose of Lasix, urine output increasing to 100 cc/h. MRSA swab came back negative, vancomycin discontinued. Pertinent Imaging: Chest x-ray with left upper and right lower lobe pneumonia, with slight improvement Subjective: Intubated, sedated, Vitals Signs Reviewed. General: [Ill-appearing, intubated, sedated, obese Derm: [warm], [dry] Head: [atraumatic], [normocephalic], [symmetric] Eyes: [EOMI], [no lid lag], [anicteric sclera] Mouth: [no lip lesion], [mucus membranes moist], ETT, OG tube Cardiovascular: [S1S2 reg], [no murmur] Lungs: Diminished breath sounds, crackles left more than right Abdominal: [soft], [ nontender to palpation], [no guarding], [no appreciable organomegaly] Ext: [no gross muscle atrophy], [bilateral lower extremity edema], [no contractures] Neuro: [ Intubated sedated paralyzed Psych: [ Data Reviewed Today: Pertinent Labs: Leukocytosis improving 19.6, hemoglobin 11.0, platelet count normal, ABG with pH of 7.2, pCO2 68, pO2 75, sodium and potassium normal, creatinine 2.94, BUN 101, glucose 222, ionized calcium 3.8, normal liver enzymes. Assessment and Plan: septic shock secondary to severe bilateral community-acquired strep pneumo pneumonia, influenza A infection Strep pneumo bacteremia Acute hypoxic respiratory failure secondary to above requiring intubation 06/10/2024 REspiratory acidosis -Continue mechanical ventilation and sedation per ICU, patient did not tolerate paralytic holiday on 06/12, another attempt 06/13 planned no ventilator changes made today -Continue ceftriaxone 2 g daily, antibiotics SOT 06/10, MRSA swab negative, vancomycin discontinued 06/13 -Follow-up sputum and blood cultures, growing strep pneumo -Follow-up CBC and CMP -ICU consulted -Hypoglycemia protocol SSI, Accu-Cheks every 6 hours, added Levemir, increased to 20 units twice daily -Continue DuoNebs: 4 hours -Continue Solu-Medrol 60 mg every 6 hours -follow up ABG, vent adjustments per ICU -Patient's girlfriend updated on 06/13, all questions answered -Discussed with ICU team EMEKA, oliguric likely secondary to ATN in the settings of hypotension and sepsis Hematuria -bicarb drip discontinued, monitor BMP -Creatinine is rising, 1 dose of Lasix 06/13, urine output increased now around 100 cc/h versus around 30 as before. -Nephrology following -UA reviewed, kidney ultrasound without hydronephrosis or obstruction -Stress ulcer prophylaxis with IV Protonix Persistent A-fib status post ablation : Continue heparin drip, stop amiodarone drip, start amiodarone p.o. 400 twice daily, started on Lopressor 25 twice daily. history of hypertension ,: On amlodipine 10, losartan 100, , will hold for now due to hypotension requiring pressors, started on metoprolol 25 twice daily by cardiology for A-fib control GERD: On home omeprazole 40 daily, IV Protonix Left forehead lipoma -CT head done, no acute intracranial process, left forehead abnormality is most compatible with lipoma, no hematoma. No fracture, moderate multilevel degenerative disc disease Obesity CODE STATUS:default full code DVT prophylaxis: Heparin drip Anticipated discharge date: tbd Anticipated discharge place: tbd Objective - Vital Signs Vital signs: Vital Signs Temp 99.3 F 06/14/24 12:00 Pulse 90 06/14/24 13:00 Resp 34 H 06/14/24 13:00 BP 128/57 06/13/24 19:00 Pulse Ox 94 L 06/14/24 13:00 FiO2 70 06/14/24 12:00 Intake & Output 06/13/24 06/14/24 06/14/24 18:59 06:59 18:59 Intake Total 2477.154 2034.301 1300.785 Output Total 724 154 7901 Balance 8192.858 9081.301 205.785 Weight 126.2 kg 126.8 kg Intake: IV 433 276 234 0.9% NS KVO 180 240 160 Pressure Bag (0.9 sodium 36 36 24 chloride) Vancomycin 1,500 mg In 167 Sodium Chloride 0.9% 500 ml 500 ml @ 167 mls/hr IVPB Q24H [facility] Rx#: [id number] cefTRIAXone 2 gm In 50 50 Sodium Chloride 0.9% 50 ml @ 100 mls/hr IVPB Q24HR [facility] Rx#:[id number] Intake, IV Titration 6793.892 0372.301 666.785 Amount Cisatracurium 200 mg In 81.853 Sodium Chloride 0.9% 180 ml @ 1 MCG/KG/MIN 5.987 mls/hr IV .Q24H [facility] Rx#: [id number] Heparin Sod,Pork in 0.45% 160.494 171.812 78.188 NaCl 25,000 unit In 0.45 % NaCl 1 250ml.bag @ 8. 375 UNITS/KG/HR 10 mls/hr IV .Q24H [facility] Rx#: [id number] Norepinephrine 8 mg In 837.344 710.896 250.041 Sodium Chloride 0.9% 250 ml @ 0.03 MCG/KG/MIN 6. 589 mls/hr IV .Q24H [facility] Rx#:[id number] Vasopressin 20 unit In 91.188 51 38.556 Sodium Chloride 0.9% 50 ml @ 0.03 UNITS/MIN 4.59 mls/hr IV .Q11H7M [facility] Rx# :[id number] propofoL 1,000 mg In 373.275 274.593 300 Empty Bag 1 bag @ 15 MCG/ KG/MIN 8.981 mls/hr IV . Q11H9M [facility] Rx#:[id number] Tube Feeding 410 420 280 Other 90 130 120 Output: Urine 262 228 7157 Other: Voiding Method Indwelling Catheter Indwelling Catheter Indwelling Catheter ABP, PAP, CO, CI - Last Documented Arterial Blood Pressure 99 - Labs CBC & Chem 7: 06/14/24 04:40 06/14/24 04:40 Labs: Abnormal Lab Results - Last 24 Hours (Table) 06/13/24 06/14/24 06/14/24 Range/Units 17:46 00:43 04:40 WBC (3.8-10.6) k/uL RBC (4.30-5.90) m/uL Hgb (13.0-17.5) gm/dL Hct (39.0-53.0) % RDW (11.5-15.5) % APTT (22.0-30.0) sec ABG pH (7.35-7.45) ABG pCO2 (35-45) mmHg ABG HCO3 (21-25) mmol/L ABG Total CO2 (19-24) mmol/L Hemoglobin (13.0-17.5) gm/dL BUN 124 H* (9-20) mg/dL Creatinine 2.76 H (0.66-1.25) mg/dL Glucose 249 H (74-99) mg/dL POC Glucose (mg/dL) 224 H 266 H (70-110) mg/dL Calcium 7.0 L (8.4-10.2) mg/dL 06/14/24 06/14/24 06/14/24 Range/Units 04:40 04:40 05:50 WBC 18.5 H (3.8-10.6) k/uL RBC 3.51 L (4.30-5.90) m/uL Hgb 10.3 L (13.0-17.5) gm/dL Hct 32.1 L (39.0-53.0) % RDW 16.1 H (11.5-15.5) % APTT 36.0 H (22.0-30.0) sec ABG pH 7.28 L (7.35-7.45) ABG pCO2 59 H (35-45) mmHg ABG HCO3 27 H (21-25) mmol/L ABG Total CO2 29 H (19-24) mmol/L Hemoglobin 10.3 L (13.0-17.5) gm/dL BUN (9-20) mg/dL Creatinine (0.66-1.25) mg/dL Glucose (74-99) mg/dL POC Glucose (mg/dL) (70-110) mg/dL Calcium (8.4-10.2) mg/dL 06/14/24 06/14/24 06/14/24 Range/Units 06:21 12:03 12:38 WBC (3.8-10.6) k/uL RBC (4.30-5.90) m/uL Hgb (13.0-17.5) gm/dL Hct (39.0-53.0) % RDW (11.5-15.5) % APTT 47.1 H (22.0-30.0) sec ABG pH (7.35-7.45) ABG pCO2 (35-45) mmHg ABG HCO3 (21-25) mmol/L ABG Total CO2 (19-24) mmol/L Hemoglobin (13.0-17.5) gm/dL BUN (9-20) mg/dL Creatinine (0.66-1.25) mg/dL Glucose (74-99) mg/dL POC Glucose (mg/dL) 247 H 229 H (70-110) mg/dL Calcium (8.4-10.2) mg/dL Microbiology - Last 24 Hours (Table) 06/10/24 17:10 Gram Stain - Final Sputum Sputum Culture - Final Streptococcus pneumoniae Natalie albicans 06/10/24 14:04 Blood Culture Gram Stain - Final Blood Blood Culture - Final Streptococcus pneumoniae Staphylococcus hominis Molecular ID
[2024-06-14 17:44] LABS: Glucose,Whole Blood 223 mg/dL (70-110)
[2024-06-14] MEDS: INSULIN GLARGINE (LANTUS) 100 UNIT/ML SYR SQ SCH (20:44)
[2024-06-14 21:16] LABS: Glucose,Whole Blood 233 mg/dL (70-110)
[2024-06-15 00:33] LABS: Glucose,Whole Blood 228 mg/dL (70-110)
[2024-06-15 06:10] LABS: ABG HCO3 30 mmol/L (21-25); ABG Oxygen Saturation 97.6 % (94-97); ABG PCO2 64 mmHg (35-45); ABG PH 7.28 (7.35-7.45); ABG PO2 106 mmHg (83-108); ABG TCO2 32 mmol/L (19-24); Allen Test Performed? Yes
[2024-06-15 06:28] LABS: Glucose,Whole Blood 199 mg/dL (70-110)
[2024-06-15 06:31] LABS: HCT 30.4 % (39.0-53.0); HGB 9.6 gm/dL (13.0-17.5); Hypochromasia Moderate; MCHC 31.4 g/dL (31.0-37.0); MCV 92.2 fL (80.0-100.0); Mean Platelet Volume 9.9; Platelet Count 217 k/uL (150-450); RDW 15.7 % (11.5-15.5); WBC 19.2 k/uL (3.8-10.6)
[2024-06-15 07:44] LABS: African American GFR (CKD) 29 (>60 ml/min/1.73 sqM); Anion Gap 10 mmol/L; Calcium 7.4 mg/dL (8.4-10.2); Carbon Dioxide 28 mmol/L (22-30); Chloride 108 mmol/L (98-107); Glucose 203 mg/dL (74-99); Non-African American GFR(CKD) 25 (>60 ml/min/1.73 sqM); Potassium 5.7 mmol/L (3.5-5.1); Sodium 146 mmol/L (137-145)
--- NOTE | 2024-06-15 08:06 | XR ---
EXAMINATION TYPE: XR chest 1V portable DATE OF EXAM: 06/15/2024 5:59 AM COMPARISON: 06/14/2024 CLINICAL INDICATION: Male, 69 years old with history of vent, TECHNIQUE: XR chest 1V portable view(s) obtained. FINDINGS: The heart size is normal. The pulmonary vasculature is prominent. Right lower lobe infiltrate remains present. Previous left upper lobe infiltrate is improving. Diffus e remaining infiltrate in the bilateral lung ward with stable. Endotracheal tube tip is 7.1 cm above the marie. Left central venous catheter tip is in the region o f the superior vena cava. Nasogastric tube transverses the thorax IMPRESSION: 1. Improving left upper lobe infiltrate. 2. Improving right lower lobe infiltrate. 3. Lines and catheters discussed above. [facility], , 06/15/2024 8:04 AM
[2024-06-15 08:22] LABS: Blood Urea Nitrogen 140 mg/dL (9-20)
[2024-06-15] MEDS: SODIUM BICARB 8.4% 50 ML SYR (1 MEQ/ML) IV STA (08:55)
[2024-06-15] MEDS: LACTULOSE 20 GM/30 ML CUP PO ONE (09:08)
[2024-06-15] MEDS: ACETAMINOPHEN IV (For NPO) 1,000 MG in EMPTY BAG 1 BAG IVPB PRN (09:08)
[2024-06-15] MEDS: fentaNYL (PF). 1,000 MCG in SODIUM CHLORIDE 0.9% 80 ML IV SCH (09:21)
--- NOTE | 2024-06-15 09:48 | P.PN ---
Subjective Progress Note Date: 06/15/24 PROGRESS NOTE The patient is a 69-year-old male who presented with symptoms of progressive dyspnea, diagnosed with pneumonia and influenza A, requiring mechanical ventilation. Cardiology consultation was requested because of atrial fibrillation. The patient is intubated and sedated. He has a history of atrial fibrillation, status post ablation in January 2024. He was in sinus mechanism on presentation and back in atrial fibrillation at this time with episode of rapid ventricle response. He is on vasopressors. He had an echocardiogram that showed a preserved systolic function, the study was technically difficult. The patient has been anticoagulated as an outpatient. Her chest x-ray shows severe infiltration bilaterally consistent with a pneumonia. Presentation he had evidence of acute renal injury and hypotension related to sepsis. He has been initiated on amiodarone and he is on vasopressin in addition to norepinephrine June 13: The patient remains intubated and sedated. He had episodes of paroxysmal atrial fibrillation. He is in sinus mechanism at this time. He continues to be on norepinephrine. His urine output is stable. His chest x-ray shows bilateral infiltrate consistent with his pneumonia. There is no evidence of ventricular ectopic activity.There is significant worsening of his renal function with a BUN up to 101 with a creatinine of 2.94. Tolerating tube feeding June 14: The patient remains intubated and sedated. He is in atrial fibrillation with controlled ventricular response. He is on the lower dose of norepinephrine. His urine output has been stable and he is tolerating tube feeding. He had no evidence of ventricular ectopic activity. He continues to have significant infiltrate on his chest x-ray. June 15: The patient remains intubated and sedated, he is on the lower PEEP. He continues to be in atrial fibrillation with controlled ventricular response. His urinary output has improved. There is no evidence of ventricular ectopic activity. His chest x-ray continues to show evidence of infiltrate bilaterally. Continues to be on IV heparin. He has worsening of his renal functions. Medications: IV heparin, Rocephin, insulin, methylprednisolone, metoprolol tartrate 25 mg twice a day, Tamiflu, vancomycin, amiodarone 400 mg twice a day, Lasix 80 mg IV twice daily PHYSICAL EXAMINATION: Blood pressure 128/60 heart rate 95, intubated and sedated LUNGS: Clear to auscultation anteriorly HEART: Irregular rate and rhythm, S1, S2. No S3. Systolic ejection murmur ABDOMEN: Soft, positive bowel sounds, no organomegaly EXTREMETIES: +1 edema LAB: Hemoglobin 9.6, WBC 19.2, pH 7.28, pCO2 64 with a pO2 of 106. BUN 140 with a creatinine of 2.53. IMPRESSION: 1. Acute respiratory failure with bilateral pneumonia and influenza A requiring mechanical ventilation 2. Paroxysmal atrial fibrillation status post ablation in 2023, back in atrial fibrillation 3. Acute renal injury related to the sepsis and hypotension, worsening 4. Hypotension, improved PLAN: 1. Continue supportive care 2. Follow renal functions closely. The patient was started on IV diuretics yesterday and increase to twice daily 3. Continue IV anticoag relation for now 4. Prognosis is guarded Objective - Vital Signs Vital signs: Vital Signs Temp 99.5 F 06/15/24 04:00 Pulse 130 H 06/15/24 08:25 Resp 34 H 06/15/24 07:00 BP 128/57 06/15/24 07:00 Pulse Ox 95 06/15/24 07:00 FiO2 60 06/15/24 08:28 Intake & Output 06/14/24 06/15/24 06/15/24 18:59 06:59 18:59 Intake Total 9481.157 5549.541 58 Output Total 1435 1335 60 Balance 478.937 628.541 -2 Weight 129.3 kg Intake: IV 326 276 23 0.9% NS KVO 240 240 20 Pressure Bag (0.9 sodium 36 36 3 chloride) cefTRIAXone 2 gm In 50 Sodium Chloride 0.9% 50 ml @ 100 mls/hr IVPB Q24HR [facility] Rx#:[id number] Intake, IV Titration 8684.106 3756.541 Amount Heparin Sod,Pork in 0.45% 78.188 250 NaCl 25,000 unit In 0.45 % NaCl 1 250ml.bag @ 8. 375 UNITS/KG/HR 10 mls/hr IV .Q24H [facility] Rx#: [id number] Norepinephrine 8 mg In 433.260 463.437 Sodium Chloride 0.9% 250 ml @ 0.03 MCG/KG/MIN 6. 589 mls/hr IV .Q24H [facility] Rx#:[id number] Vasopressin 20 unit In 39.142 Sodium Chloride 0.9% 50 ml @ 0.03 UNITS/MIN 4.59 mls/hr IV .Q11H7M [facility] Rx# :[id number] propofoL 1,000 mg In 467.347 464.104 Empty Bag 1 bag @ 15 MCG/ KG/MIN 8.981 mls/hr IV . Q11H9M [facility] Rx#:[id number] Tube Feeding 420 420 35 Other 150 90 Output: Urine 1435 1335 60 Other: Voiding Method Indwelling Catheter Indwelling Catheter ABP, PAP, CO, CI - Last Documented Arterial Blood Pressure 119/49 - Labs CBC & Chem 7: 06/15/24 04:40 06/15/24 04:40 Labs: Abnormal Lab Results - Last 24 Hours (Table) 06/14/24 06/14/24 06/14/24 Range/Units 12:03 12:38 17:42 WBC (3.8-10.6) k/uL RBC (4.30-5.90) m/uL Hgb (13.0-17.5) gm/dL Hct (39.0-53.0) % RDW (11.5-15.5) % APTT 47.1 H (22.0-30.0) sec ABG pH (7.35-7.45) ABG pCO2 (35-45) mmHg ABG HCO3 (21-25) mmol/L ABG Total CO2 (19-24) mmol/L ABG O2 Saturation (94-97) % Hemoglobin (13.0-17.5) gm/dL Sodium (137-145) mmol/L Potassium (3.5-5.1) mmol/L Chloride (98-107) mmol/L BUN (9-20) mg/dL Creatinine (0.66-1.25) mg/dL Glucose (74-99) mg/dL POC Glucose (mg/dL) 229 H 223 H (70-110) mg/dL Calcium (8.4-10.2) mg/dL 06/14/24 06/15/24 06/15/24 Range/Units 21:14 00:32 04:40 WBC (3.8-10.6) k/uL RBC (4.30-5.90) m/uL Hgb (13.0-17.5) gm/dL Hct (39.0-53.0) % RDW (11.5-15.5) % APTT 39.8 H (22.0-30.0) sec ABG pH (7.35-7.45) ABG pCO2 (35-45) mmHg ABG HCO3 (21-25) mmol/L ABG Total CO2 (19-24) mmol/L ABG O2 Saturation (94-97) % Hemoglobin (13.0-17.5) gm/dL Sodium (137-145) mmol/L Potassium (3.5-5.1) mmol/L Chloride (98-107) mmol/L BUN (9-20) mg/dL Creatinine (0.66-1.25) mg/dL Glucose (74-99) mg/dL POC Glucose (mg/dL) 233 H 228 H (70-110) mg/dL Calcium (8.4-10.2) mg/dL 06/15/24 06/15/24 06/15/24 Range/Units 04:40 04:40 06:02 WBC 19.2 H (3.8-10.6) k/uL RBC 3.30 L (4.30-5.90) m/uL Hgb 9.6 L (13.0-17.5) gm/dL Hct 30.4 L (39.0-53.0) % RDW 15.7 H (11.5-15.5) % APTT (22.0-30.0) sec ABG pH 7.28 L (7.35-7.45) ABG pCO2 64 H (35-45) mmHg ABG HCO3 30 H (21-25) mmol/L ABG Total CO2 32 H (19-24) mmol/L ABG O2 Saturation 97.6 H (94-97) % Hemoglobin 9.7 L (13.0-17.5) gm/dL Sodium 146 H (137-145) mmol/L Potassium 5.7 H (3.5-5.1) mmol/L Chloride 108 H (98-107) mmol/L BUN 140 H* (9-20) mg/dL Creatinine 2.53 H (0.66-1.25) mg/dL Glucose 203 H (74-99) mg/dL POC Glucose (mg/dL) (70-110) mg/dL Calcium 7.4 L (8.4-10.2) mg/dL 06/15/24 Range/Units 06:27 WBC (3.8-10.6) k/uL RBC (4.30-5.90) m/uL Hgb (13.0-17.5) gm/dL Hct (39.0-53.0) % RDW (11.5-15.5) % APTT (22.0-30.0) sec ABG pH (7.35-7.45) ABG pCO2 (35-45) mmHg ABG HCO3 (21-25) mmol/L ABG Total CO2 (19-24) mmol/L ABG O2 Saturation (94-97) % Hemoglobin (13.0-17.5) gm/dL Sodium (137-145) mmol/L Potassium (3.5-5.1) mmol/L Chloride (98-107) mmol/L BUN (9-20) mg/dL Creatinine (0.66-1.25) mg/dL Glucose (74-99) mg/dL POC Glucose (mg/dL) 199 H (70-110) mg/dL Calcium (8.4-10.2) mg/dL
[2024-06-15] MEDS: bisacodyL 10 MG SUPP RECTAL PRN (11:14)
[2024-06-15 11:43] LABS: Glucose,Whole Blood 200 mg/dL (70-110)
--- NOTE | 2024-06-15 11:56 | P.PN ---
Subjective Progress Note Date: 06/15/24 Pressor requirement about the same. Discussed wiht pulm and nursing at bedside. Vent settings improving. BUN is 140, but creatinine improved and UOP improved. General: intubated, sedated HEENT: normocephalic, atraumatic, no tracheal deviation Respiratory: symmetric chest rise, no cyanosis, ventilator dependent CVS: perfusing all extremities, no distal gangrene, trace pitting edema GI: soft, ND : no SPT, no CVAT, black is present Neuro: sedated Hospital Course: Patient is a 69-year-old male with past medical history of A-fib status post ablation, hypertension. History obtained from chart review. Per ER note, EMS was called by patient's family for shortness of breath, family reported that multiple family members were sick in the house. They noted his SpO2 to be in 60s on placed him on CPAP with no improvement and he continued to breathe rapidly, spiking fever Initially, patient was placed on BiPAP for hypoxia, remained tachypneic and in respiratory distress despite BiPAP. Patient spent 1-1/2-hour on BiPAP with no improvement in his respiratory status, therefore, decision was made to intubate on 06/10, and was sedated, paralyzed, and transferred to ICU. Started on treatment for acute hypoxic respiratory failure secondary to bilateral pneumonia, influenza A pneumonia with cefepime, vancomycin; tamiflu, and solumedrol. Repeat chest x-ray showed diffuse pulmonary infiltrates and blood gases showed severe acidosis with pH of 7.05, patient was started on bicarb drip overnight, his blood pressure dropped requiring pressors. Hospital course complicated by oliguric renal failure. Nephrology consulted, kidney ultrasound and UA ordered, showed no obstruction or hydronephrosis. Blood cultures growing strep pneumo, antibiotics de-escalated to ceftriaxone 2 g daily. Cardiology consulted for A-fib with RVR, patient started on amiodarone drip, then switched to oral amiodarone starting as well as heparin gtt. Assessment and Plan: Septic shock secondary with Acute Hypoxemic Respiratory Failure Community-acquired strep pneumo pneumonia, influenza A infection Strep pneumo bacteremia -Vent settings per ICU: currently being weaned down PEEP 18-->16, FiO2 70%-->60% -Continue ceftriaxone 2 g daily, antibiotics SOT 06/10 -Remains on solumedrol -Tamiflu has been discontinued 06/15 -Continue DuoNebs q4 hours -Patient's girlfriend updated on 06/14, all questions answered Steroid induced hyperglycemia Prediabetes -SSI, Accu-Cheks every 6 hours, added Levemir, increased to 20 units twice daily -qualifies for metformin on discharge if kidney function recovers, otherwise defer to outpatient follow up Acute Kidney Injury secondary to ATN, oliguric Hyperkalemia -Nephrology following -Lasix increased to 80mg IV q12hr -BUN rising, consideration of dialysis Persistent A-fib status post ablation : -Continue heparin drip, -Amiodarone p.o. 400 twice daily, Lopressor 25 twice daily. -Cardiology following History of hypertension: GERD: Left forehead lipoma Obesity, Class III -Home medications reviewed and reconciled GI PPx: Stress ulcer prophylaxis with IV Protonix CODE STATUS: default full code DVT prophylaxis: Heparin drip Anticipated discharge date: tbd Anticipated discharge place: tbd Objective - Vital Signs Vital signs: Vital Signs Temp 99.5 F 06/15/24 04:00 Pulse 130 H 06/15/24 08:25 Resp 34 H 06/15/24 07:00 BP 128/57 06/15/24 07:00 Pulse Ox 95 06/15/24 07:00 FiO2 60 06/15/24 08:28 Intake & Output 06/14/24 06/15/24 06/15/24 18:59 06:59 18:59 Intake Total 5892.307 4036.541 306.609 Output Total 1435 1335 60 Balance 478.937 628.541 246.609 Weight 129.3 kg Intake: IV 326 276 23 0.9% NS KVO 240 240 20 Pressure Bag (0.9 sodium 36 36 3 chloride) cefTRIAXone 2 gm In 50 Sodium Chloride 0.9% 50 ml @ 100 mls/hr IVPB Q24HR [facility] Rx#:[id number] Intake, IV Titration 1332.552 4242.541 248.609 Amount Heparin Sod,Pork in 0.45% 78.188 250 NaCl 25,000 unit In 0.45 % NaCl 1 250ml.bag @ 8. 375 UNITS/KG/HR 10 mls/hr IV .Q24H [facility] Rx#: [id number] Norepinephrine 8 mg In 433.260 463.437 148.609 Sodium Chloride 0.9% 250 ml @ 0.03 MCG/KG/MIN 6. 589 mls/hr IV .Q24H [facility] Rx#:[id number] Vasopressin 20 unit In 39.142 Sodium Chloride 0.9% 50 ml @ 0.03 UNITS/MIN 4.59 mls/hr IV .Q11H7M [facility] Rx# :[id number] propofoL 1,000 mg In 467.347 464.104 100 Empty Bag 1 bag @ 15 MCG/ KG/MIN 8.981 mls/hr IV . Q11H9M [facility] Rx#:[id number] Tube Feeding 420 420 35 Other 150 90 Output: Urine 1435 1335 60 Other: Voiding Method Indwelling Catheter Indwelling Catheter ABP, PAP, CO, CI - Last Documented Arterial Blood Pressure 119/49 - Labs CBC & Chem 7: 06/15/24 04:40 06/15/24 04:40 Labs: Abnormal Lab Results - Last 24 Hours (Table) 06/14/24 06/14/24 06/14/24 Range/Units 12:03 12:38 17:42 WBC (3.8-10.6) k/uL RBC (4.30-5.90) m/uL Hgb (13.0-17.5) gm/dL Hct (39.0-53.0) % RDW (11.5-15.5) % APTT 47.1 H (22.0-30.0) sec ABG pH (7.35-7.45) ABG pCO2 (35-45) mmHg ABG HCO3 (21-25) mmol/L ABG Total CO2 (19-24) mmol/L ABG O2 Saturation (94-97) % Hemoglobin (13.0-17.5) gm/dL Sodium (137-145) mmol/L Potassium (3.5-5.1) mmol/L Chloride (98-107) mmol/L BUN (9-20) mg/dL Creatinine (0.66-1.25) mg/dL Glucose (74-99) mg/dL POC Glucose (mg/dL) 229 H 223 H (70-110) mg/dL Calcium (8.4-10.2) mg/dL 06/14/24 06/15/24 06/15/24 Range/Units 21:14 00:32 04:40 WBC (3.8-10.6) k/uL RBC (4.30-5.90) m/uL Hgb (13.0-17.5) gm/dL Hct (39.0-53.0) % RDW (11.5-15.5) % APTT 39.8 H (22.0-30.0) sec ABG pH (7.35-7.45) ABG pCO2 (35-45) mmHg ABG HCO3 (21-25) mmol/L ABG Total CO2 (19-24) mmol/L ABG O2 Saturation (94-97) % Hemoglobin (13.0-17.5) gm/dL Sodium (137-145) mmol/L Potassium (3.5-5.1) mmol/L Chloride (98-107) mmol/L BUN (9-20) mg/dL Creatinine (0.66-1.25) mg/dL Glucose (74-99) mg/dL POC Glucose (mg/dL) 233 H 228 H (70-110) mg/dL Calcium (8.4-10.2) mg/dL 06/15/24 06/15/24 06/15/24 Range/Units 04:40 04:40 06:02 WBC 19.2 H (3.8-10.6) k/uL RBC 3.30 L (4.30-5.90) m/uL Hgb 9.6 L (13.0-17.5) gm/dL Hct 30.4 L (39.0-53.0) % RDW 15.7 H (11.5-15.5) % APTT (22.0-30.0) sec ABG pH 7.28 L (7.35-7.45) ABG pCO2 64 H (35-45) mmHg ABG HCO3 30 H (21-25) mmol/L ABG Total CO2 32 H (19-24) mmol/L ABG O2 Saturation 97.6 H (94-97) % Hemoglobin 9.7 L (13.0-17.5) gm/dL Sodium 146 H (137-145) mmol/L Potassium 5.7 H (3.5-5.1) mmol/L Chloride 108 H (98-107) mmol/L BUN 140 H* (9-20) mg/dL Creatinine 2.53 H (0.66-1.25) mg/dL Glucose 203 H (74-99) mg/dL POC Glucose (mg/dL) (70-110) mg/dL Calcium 7.4 L (8.4-10.2) mg/dL 06/15/24 Range/Units 06:27 WBC (3.8-10.6) k/uL RBC (4.30-5.90) m/uL Hgb (13.0-17.5) gm/dL Hct (39.0-53.0) % RDW (11.5-15.5) % APTT (22.0-30.0) sec ABG pH (7.35-7.45) ABG pCO2 (35-45) mmHg ABG HCO3 (21-25) mmol/L ABG Total CO2 (19-24) mmol/L ABG O2 Saturation (94-97) % Hemoglobin (13.0-17.5) gm/dL Sodium (137-145) mmol/L Potassium (3.5-5.1) mmol/L Chloride (98-107) mmol/L BUN (9-20) mg/dL Creatinine (0.66-1.25) mg/dL Glucose (74-99) mg/dL POC Glucose (mg/dL) 199 H (70-110) mg/dL Calcium (8.4-10.2) mg/dL
--- NOTE | 2024-06-15 12:59 | P.PN ---
Subjective Progress Note Date: 06/15/24 69-year-old male patient came into the emergency department for shortness of breath. According to the significant other, the patient was sick approximately a week ago and his condition has been progressively getting worse. The patient has been falling. He has been having difficulties in keeping himself up and moving around over the past 24 hours. Based on that, he came into the emergency department. His initial pulse ox was 60% and he was placed on a BiPAP and rapidly following that, the patient was intubated and placed on the mechanical ventilator. Chest x-ray at time of admission showed extensive pneumonia with left upper lobe consolidation and air bronchograms and bibasilar pulmonary inf iltrates. Patient tested positive for influenza A. Postintubation, the patient's blood gases showed a pH of 7.36 with a pCO2 of 43 and pO2 of 60. Nevertheless, by the time he arrived to the ICU, the patient was again hypoxic with a pulse ox of 78%. Necessary ventilator changes were done and currently the patient is in a rate of 26, tidal volume of 375, PEEP of 24 with an FiO2 of 100% and expiratory pause of 0.2 ms. The blood gas showed a pH of 7.16 with a pCO2 of 77 and pO2 of 66. Triple-lumen catheter was established in the left IJ. Arterial line was also established. The patient is currently on Tamiflu. He was also started on broad-spectrum antibiotics utilizing a combination of c efepime Zithromax and vancomycin. Started on systemic steroids. Hemodynamically stable. No hypotension. Cardiac rhythm is sinus. According to the significant other, he has history of paroxysmal atrial fibrillation and the patient has undergone ablation. Cardiac rhythm is sinus. He also has hy pertension. He is a former smoker. Does not utilize any form of oxygen therapy or inhalers on outpatient basis. No history of bronchial asthma. No history of COPD. No history of any congestion or heart failure. The white cell count of 15.3 with hemoglobin 15.8 and a platelet count of 265. Normal coagulation profile. BUN is 63 with a creatinine 1.42 and a sodium levels at 140 with a potassium level of 4.5. Initial lactic acid level was at 3.8 and dropped down to 2.0. The patient is currently on normal saline at rate of 100 cc an hour. Furthermore, he is sedated with propofol and paralytics with Bumex. In the intensive care unit. 06/11/2024, the patient is being seen for a follow-up. This morning, the patient remains on propofol running at 50 mcg/kg/min and the patient is also paralyzed with Nimbex at 1 mcg/kg/h. Remains on assist-control mode of mechanical ventilation. Rate is 32 with a tidal volume of 400, FiO2 is 100% with a PEEP of 24. Morning blood gases showed a pH of 7.05 with a pCO2 being more than 98 and pO2 was 102. Chest x-ray shows diffuse bilateral pulmonary infiltrates, slightly worse compared to yesterday. Hemodynamically, the patient was given a total of 3 L of IV fluids. Started on bicarb infusion which is running at 100 cc an hour. Patient is on norepinephrine running at 0.5 mcg/kg/min and vasopressin at 0.04 units. Urine output is extremely low almost absent and the patient has developed an acute kidney injury. Overall fluid balance is +6.3 L over the past 24 hours. The white cell count of 27 with a hemoglobin 12.1 and a platelet count of 311. Sodium is at 140, potassium is at 5.4, chloride 104 and bicarb is 28. BUN 66 with a creatinine of 2.1. Based on the morning blood gases, I dropped the PEEP down to 20, I removed the inspiratory pause. I brought up the tidal volume to 450 and increase the respirate up to 34. Most recent peak airway pressure is 37. Cervical pressure is 33. The subsequent blood gas obtained showed a pH of 7.11 with a pCO2 of 88 and a pO2 of 138. Based on that, the PEEP was dropped down to 18. The patient is currently on a tidal volume of 450 with a respiratory rate of 34. FiO2 was dropped down to 80%. The patient will be started on enteral feeding for nutritional support. Afebrile. Remains on broad-spectrum antibiotics. The patient on a combination of cefepime, Zithromax and vancomycin. The patient is also on Tamiflu. The patient on IV Solu-Medrol. 06/12/2024, the patient is being seen for a follow-up. Remains intubated on mechanical ventilator. Remains sedated and paralyzed. The patient is currently on propofol running at 50 mcg/kg/min and the patient is also on Nimbex at 1 mcg/kg/min. The patient remains on mechanical ventilator, assist-control mode at rate of 34, tidal volume of 450, FiO2 of 80% with a PEEP of 18. pH is 7.21 with a pCO2 of 73 and pO2 of 92. Peak airway pressure 37 in the setting of a pressure of 31. The patient remains in atrial fibrillation. The patient remains on amiodarone drip which is running at 0.5 mg/min. Patient remains on pressors. Patient is on norepinephrine at 0.5 mcg/kg/min and vasopressin 0.04 units. Urine output is in order of 20 to 30 cc an hour. The patient is in a positive fluid balance. The patient remains on a bicarb drip at rate of 100 cc an hour. He is receiving enteral feeding for nutritional support with vital HP at rate of 33 cc an hour. Noted his blood cultures came back positive for streptococcal pneumoniae and a sputum sample was also positive for Streptococcus and the patient has a pneumococcal pneumonia on top of his influenza A infection. The follow-up chest x-ray from today shows extensive bilateral consolidation there is worsening in the right lower lobe consolidation and persistent left upper lobe pulmonary infiltrate. The patient remains on a combination of cefepime, Zithromax and vancomycin. The patient remains on Tamiflu. The patient remains on IV Solu-Medrol. The patient remains on Levemir 12 units twice daily and NovoLog/scale coverage. The patient remains on IV Solu-Medrol.Blood work from today shows a WBC count of 20.8, hemoglobin 11.6 and a platelet count of 2 9. Patient also has a sodium level of 141, potassium level of 4.3, BUN is 82 with a creatinine of 2.7 chloride is 102 with a bicarb level of 28. Calcium levels at 6.2, ionized calcium is at 3.8, low. Magnesium is at 3.2. LFTs are normal. On 06/13/2024, the patient is being seen for a follow-up. The patient remains intubated on mechanical ventilator. The patient is on propofol running at 50 mcg/kg/min and the patient is also on Nimbex for paralysis. Noted the patient was given paralytic holiday yesterday. He became asynchronous on mechanical ventilator and based on that Nimbex was restarted. Another paralytic holiday will be given to this patient today. The patient remains on mechanical ventilator assist-control at rate of 34, tidal volume of 450, FiO2 of 70% with a PEEP of 18. Blood gas showed a pH of 7.22 with a pCO2 of 68 and pO2 of 75. The follow-up chest x-ray was done today and the patient was found to have slight improvement in the right lower lobe consolidation. The patient continues to have a left upper lobe consolidation. All of the lines and the tubes are still in place. The patient has a positive fluid balance of 5.1 L. IV fluids are currently at KVO. The patient is on vital high-protein at rate of 33 cc an hour. Remains on pressors. Urine output is in order 30 cc an hour. Blood sugars are elevated. In terms of antibiotic coverage, the patient remains on a combination of IV Rocephin and vancomycin. The patient remains on Tamiflu. The patient remains on IV Solu-Medrol.In terms of blood work from today, the patient's white cell count remains elevated at 18.6, hemoglobin 11 and a platelet count of 195. The BUN is at 101 with a creatinine of 2.9. Sodium levels at 141 with a potassium level of 5. Bicarb is at 26. The calcium level is at 6.4 and ionized calcium is 3.8, replaced. LFTs are normal. 06/14/2024, the patient is being seen for a follow-up. Remains intubated on the mechanical ventilator. This morning, the patient is off paralytics and the patient remains on propofol running at 65 mcg/kg/min. Remains on mechanical ventilator assist-control mode rate of 34, tidal volume of 450, FiO2 of 70% with a PEEP of 18. Blood gas showed a pH of 7.28 with a pCO2 of 59 and pO2 of 89. The patient remains hypotensive and remains on norepinephrine. The patient will be taken off vasopressin. Norepinephrine is running at 0.15 mcg/kg/min. Chest x-ray still showing stable bilateral pulmonary consolidation more extensive in the right lower lobe and the left upper lobe. Remains atrial fibrillation. Remains on IV Rocephin. Continues to receive enteral feeding for nutritional support. Remains on IV heparin regarding his ongoing atrial fibrillation. The WBC count is at 18, still elevated with a hemoglobin 10.3 and a platelet count of 193. Sodium is at 141, potassium is 5.1, bicarb is 27, BUN is 124 and creatinine is at 2.76. Despite ongoing renal failure, the patient is producing urine output. The patient was given Lasix and he continues to receive Lasix 80 mg on a daily basis. Rest of the medications remain unchanged. Completing course of Tamiflu. Remains on IV Rocephin. Remains on a combination of metoprolol 25 mg twice daily and amiodarone 4 mg p.o. twice daily for rate control. 06/15/2024, the patient is being seen for a follow-up. Remains intubated on mechanical ventilator. Remains sedated on propofol. Off paralytics and slightly asynchronous mechanical ventilator. May need fentanyl. Will continue monitoring his progress. Remains intubated on mechanical ventilator assist- control mode at rate of 36, tidal volume of 450, FiO2 of 70% with a PEEP of 18. Blood gas showed pH of 7.28 with a pCO2 of 64 pO2 of 106. Peak airway pressure is 36. Remains on norepinephrine running at 0.2 mcg/kg/min. Remains on vital HP at rate of 35 cc an hour. Follow-up chest x-ray done today shows improvement in the left upper lobe and right lower lobe pulmonary infiltrates. White cell count is at 19 with a hemoglobin 9.6 and a platelet count of 217. Sodium is at 146, potassium is at 5.7, chloride is 108, BUN is 140 with a creatinine of 2.5. Blood sugar is 200. Calcium level is at 7.4. Did have a episode of fever with a Tmax of 101.3. Remains on Lasix 80 mg IV every 24 hours. Fluid balance is +1.1 L over the past 24 hours and the patient has produced more than 2 L of urine output for yesterday. Objective - Vital Signs Vital signs: Vital Signs Temp 101.4 F H 06/15/24 12:00 Pulse 90 06/15/24 12:05 Resp 34 H 06/15/24 12:00 BP 128/57 06/15/24 07:00 Pulse Ox 94 L 06/15/24 12:00 FiO2 60 06/15/24 12:00 Intake & Output 06/14/24 06/15/24 06/15/24 18:59 06:59 18:59 Intake Total 9093.893 4914.541 713.281 Output Total 1435 1335 1390 Balance 478.937 628.541 -676.719 Weight 129.3 kg Intake: IV 326 276 148 0.9 Nomal Saline Pressure 36 36 18 Bag 0.9% NS KVO 240 240 30 cefTRIAXone 2 gm In 50 100 Sodium Chloride 0.9% 50 ml @ 100 mls/hr IVPB Q24HR [facility] Rx#:[id number] Intake, IV Titration 4411.207 6724.541 295.281 Amount Heparin Sod,Pork in 0.45% 78.188 250 NaCl 25,000 unit In 0.45 % NaCl 1 250ml.bag @ 8. 375 UNITS/KG/HR 10 mls/hr IV .Q24H [facility] Rx#: [id number] Norepinephrine 8 mg In 433.260 463.437 178.257 Sodium Chloride 0.9% 250 ml @ 0.03 MCG/KG/MIN 6. 589 mls/hr IV .Q24H [facility] Rx#:[id number] Vasopressin 20 unit In 39.142 Sodium Chloride 0.9% 50 ml @ 0.03 UNITS/MIN 4.59 mls/hr IV .Q11H7M [facility] Rx# :[id number] fentaNYL (PF). 1,000 mcg 17.024 In Sodium Chloride 0.9% 80 ml @ 0.5 MCG/KG/HR 6. 465 mls/hr IV .[id number] [facility] Rx#:[id number] propofoL 1,000 mg In 467.347 464.104 100 Empty Bag 1 bag @ 15 MCG/ KG/MIN 8.981 mls/hr IV . Q11H9M [facility] Rx#:[id number] Tube Feeding 420 420 210 Other 150 90 60 Output: Urine 1435 1335 1390 Other: Voiding Method Indwelling Catheter Indwelling Catheter ABP, PAP, CO, CI - Last Documented Arterial Blood Pressure 101/43 - Exam The patient appeared well nourished and normally developed. Vital signs as documented. The patient is sedated. The patient is off paralysis. Remains on mechanical ventilator. Orogastric orotracheal tube are both in place. Head exam is unremarkable. No scleral icterus or corneal arcus noted. Neck is without jugular venous distension, thyromegaly, or carotid bruits. Carotid upstrokes are brisk bilaterally. The patient has a left IJ triple-lumen catheter in place Lungs are clear to auscultation and percussion. Diminished breath sound bilateral lung with bibasilar crackles Cardiac exam reveals the PMI to be normally sized and situated. Rhythm is regular. First and second heart sounds normal. No murmurs, rubs or gallops. Abdominal exam reveals normal bowel sounds, no masses, no organomegaly and no aortic enlargement. Extremities are nonedematous and both femoral and pedal pulses are normal. Examination of the skin revealed no evidence of significant rashes, suspicious appearing nevi or other concerning lesions. Neurologically, the patient is a sedated - Labs CBC & Chem 7: 06/15/24 04:40 06/15/24 04:40 Labs: Abnormal Lab Results - Last 24 Hours (Table) 06/14/24 06/14/24 06/14/24 Range/Units 12:38 17:42 21:14 WBC (3.8-10.6) k/uL RBC (4.30-5.90) m/uL Hgb (13.0-17.5) gm/dL Hct (39.0-53.0) % RDW (11.5-15.5) % APTT 47.1 H (22.0-30.0) sec ABG pH (7.35-7.45) ABG pCO2 (35-45) mmHg ABG HCO3 (21-25) mmol/L ABG Total CO2 (19-24) mmol/L ABG O2 Saturation (94-97) % Hemoglobin (13.0-17.5) gm/dL Sodium (137-145) mmol/L Potassium (3.5-5.1) mmol/L Chloride (98-107) mmol/L BUN (9-20) mg/dL Creatinine (0.66-1.25) mg/dL Glucose (74-99) mg/dL POC Glucose (mg/dL) 223 H 233 H (70-110) mg/dL Calcium (8.4-10.2) mg/dL 06/15/24 06/15/24 06/15/24 Range/Units 00:32 04:40 04:40 WBC 19.2 H (3.8-10.6) k/uL RBC 3.30 L (4.30-5.90) m/uL Hgb 9.6 L (13.0-17.5) gm/dL Hct 30.4 L (39.0-53.0) % RDW 15.7 H (11.5-15.5) % APTT 39.8 H (22.0-30.0) sec ABG pH (7.35-7.45) ABG pCO2 (35-45) mmHg ABG HCO3 (21-25) mmol/L ABG Total CO2 (19-24) mmol/L ABG O2 Saturation (94-97) % Hemoglobin (13.0-17.5) gm/dL Sodium (137-145) mmol/L Potassium (3.5-5.1) mmol/L Chloride (98-107) mmol/L BUN (9-20) mg/dL Creatinine (0.66-1.25) mg/dL Glucose (74-99) mg/dL POC Glucose (mg/dL) 228 H (70-110) mg/dL Calcium (8.4-10.2) mg/dL 06/15/24 06/15/24 06/15/24 Range/Units 04:40 06:02 06:27 WBC (3.8-10.6) k/uL RBC (4.30-5.90) m/uL Hgb (13.0-17.5) gm/dL Hct (39.0-53.0) % RDW (11.5-15.5) % APTT (22.0-30.0) sec ABG pH 7.28 L (7.35-7.45) ABG pCO2 64 H (35-45) mmHg ABG HCO3 30 H (21-25) mmol/L ABG Total CO2 32 H (19-24) mmol/L ABG O2 Saturation 97.6 H (94-97) % Hemoglobin 9.7 L (13.0-17.5) gm/dL Sodium 146 H (137-145) mmol/L Potassium 5.7 H (3.5-5.1) mmol/L Chloride 108 H (98-107) mmol/L BUN 140 H* (9-20) mg/dL Creatinine 2.53 H (0.66-1.25) mg/dL Glucose 203 H (74-99) mg/dL POC Glucose (mg/dL) 199 H (70-110) mg/dL Calcium 7.4 L (8.4-10.2) mg/dL 02/22/25 Range/Units 11:42 WBC (3.8-10.6) k/uL RBC (4.30-5.90) m/uL Hgb (13.0-17.5) gm/dL Hct (39.0-53.0) % RDW (11.5-15.5) % APTT (22.0-30.0) sec ABG pH (7.35-7.45) ABG pCO2 (35-45) mmHg ABG HCO3 (21-25) mmol/L ABG Total CO2 (19-24) mmol/L ABG O2 Saturation (94-97) % Hemoglobin (13.0-17.5) gm/dL Sodium (137-145) mmol/L Potassium (3.5-5.1) mmol/L Chloride (98-107) mmol/L BUN (9-20) mg/dL Creatinine (0.66-1.25) mg/dL Glucose (74-99) mg/dL POC Glucose (mg/dL) 200 H (70-110) mg/dL Calcium (8.4-10.2) mg/dL Assessment and Plan Plan: Acute hypoxic respiratory failure secondary to bilateral pneumococcal pneumonia and secondary sepsis. The patient remains intubated on mechanical ventilator. Oxygenation is stable. Chest x-ray shows improvement in the bilateral pulmonary infiltrates. Bilateral pneumococcal pneumonia following an acute influenza A infection. The patient's sputum sample was positive for streptococcal pneumonia and blood cultures were also positive. There is an obviously a a bacterial superinfection on top of his influenza A infection. The patient has extensive bilateral consolidation, infiltrate left upper lobe is stable and there is dense consolidation in the right lower lobe. The patient remains on a combination of IV Rocephin and vancomycin has been discontinued Septic shock, second pneumococcal pneumonia with bacteremia. Patient remains on high-dose pressors and the patient is currently on a combination norepinephrine and vasopressin. Acute kidney injury, the patient continues to be in renal failure and the creatinine is on the rise. Urine output is adequate and the patient is on Lasix 80 mg IV every 24 hours. The patient is also being followed up by nephrology. Urine output is adequate. BUN is on the rise. Patient also has developed some hyperkalemia. Acute leukocytosis, white cell count is still elevated Atrial fibrillation with rapid ventricular response, currently on amiodarone . The heart rate is controlled rate. Remains on IV heparin. Hypertension Plan Keep the patient sedated with propofol Add fentanyl if needed Drop the patient's PEEP down to 16 and FiO2 down to 60% Increase dose of Lasix to 80 mg IV every 12 hours Gave 2 doses of sodium bicarb 50 mEq of each regarding hyperkalemia IV fluids are currently at KVO Complete the course of Tamiflu Continue IV Solu-Medrol 60 mg every 6 hours Switched antibiotics to Rocephin 2 g every 24 hours Blood cultures sputum cultures positive for Streptococcus pneumonia Wean off norepinephrine. Patient was noted to be febrile. Will obtain blood cultures and urine cultures. Will give lactulose 20 cc twice a day and Dulcolax as the patient has not had a major bowel movements. Echocardiogram shows a preserved LV function Continue enteral feeding for nutritional support Lovenox 40 mg subcu for DVT prophylaxis IV Protonix modify Lantus insulin to 25 units Twice daily and sliding scale coverage. Monitor white cell count Monitor renal function and urine output Continue oral amiodarone 400 mg p.o. twice a day Continue IV heparin Condition is critical. Will monitor oxygenation very closely. This is a critical care evaluation that was done more than 35 minutes. Condition is critical at this point in time. I updated the family regarding his condition. Spoke with the significant other of the brother at the bedside. Time with Patient: Greater than 30
[2024-06-15] MEDS: INSULIN REGULAR 100 UNIT/ML VIAL (IV) IV ONE (13:21)
--- NOTE | 2024-06-15 15:36 | P.PN ---
Subjective Patient is seen for follow-up for acute kidney injury. Renal function is stable, slightly improved. BUN disproportionately elevated from steroids and hypercatabolic state. Creatinine is 2.5 today. Lasix increased to twice a day. Urine output 70-100 cc an hour Potassium was 5.7 today. Objective - Vital Signs Vital signs: Vital Signs Temp 101.4 F H 06/15/24 12:00 Pulse 99 06/15/24 15:27 Resp 34 H 06/15/24 15:00 BP 128/57 06/15/24 07:00 Pulse Ox 94 L 06/15/24 15:15 FiO2 60 06/15/24 15:14 Intake & Output 06/14/24 06/15/24 06/15/24 18:59 06:59 18:59 Intake Total 2161.466 0480.541 713.281 Output Total 1435 1335 1390 Balance 478.937 628.541 -676.719 Weight 129.3 kg Intake: IV 326 276 148 0.9 Nomal Saline Pressure 36 36 18 Bag 0.9% NS KVO 240 240 30 cefTRIAXone 2 gm In 50 100 Sodium Chloride 0.9% 50 ml @ 100 mls/hr IVPB Q24HR [facility] Rx#:[id number] Intake, IV Titration 8829.091 1009.541 295.281 Amount Heparin Sod,Pork in 0.45% 78.188 250 NaCl 25,000 unit In 0.45 % NaCl 1 250ml.bag @ 8. 375 UNITS/KG/HR 10 mls/hr IV .Q24H [facility] Rx#: [id number] Norepinephrine 8 mg In 433.260 463.437 178.257 Sodium Chloride 0.9% 250 ml @ 0.03 MCG/KG/MIN 6. 589 mls/hr IV .Q24H [facility] Rx#:[id number] Vasopressin 20 unit In 39.142 Sodium Chloride 0.9% 50 ml @ 0.03 UNITS/MIN 4.59 mls/hr IV .Q11H7M [facility] Rx# :[id number] fentaNYL (PF). 1,000 mcg 17.024 In Sodium Chloride 0.9% 80 ml @ 0.5 MCG/KG/HR 6. 465 mls/hr IV .Y04H44H [facility] Rx#:[id number] propofoL 1,000 mg In 467.347 464.104 100 Empty Bag 1 bag @ 15 MCG/ KG/MIN 8.981 mls/hr IV . Q11H9M [facility] Rx#:[id number] Tube Feeding 420 420 210 Other 150 90 60 Output: Urine 1435 1335 1390 Other: Voiding Method Indwelling Catheter Indwelling Catheter ABP, PAP, CO, CI - Last Documented Arterial Blood Pressure 111/47 - Exam Patient is sedated and on the vent Examination of the heart S1 and S2 Examination the lungs bilateral breath sounds are heard Abdomen is soft obese Examination of lower extremity shows 2+ edema - Labs CBC & Chem 7: 06/15/24 04:40 06/15/24 04:40 Labs: Abnormal Lab Results - Last 24 Hours (Table) 06/14/24 06/14/24 06/15/24 Range/Units 17:42 21:14 00:32 WBC (3.8-10.6) k/uL RBC (4.30-5.90) m/uL Hgb (13.0-17.5) gm/dL Hct (39.0-53.0) % RDW (11.5-15.5) % APTT (22.0-30.0) sec ABG pH (7.35-7.45) ABG pCO2 (35-45) mmHg ABG HCO3 (21-25) mmol/L ABG Total CO2 (19-24) mmol/L ABG O2 Saturation (94-97) % Hemoglobin (13.0-17.5) gm/dL Sodium (137-145) mmol/L Potassium (3.5-5.1) mmol/L Chloride (98-107) mmol/L BUN (9-20) mg/dL Creatinine (0.66-1.25) mg/dL Glucose (74-99) mg/dL POC Glucose (mg/dL) 223 H 233 H 228 H (70-110) mg/dL Calcium (8.4-10.2) mg/dL Procalcitonin (0.02-0.50) ng/mL 06/15/24 06/15/24 06/15/24 Range/Units 04:40 04:40 04:40 WBC 19.2 H (3.8-10.6) k/uL RBC 3.30 L (4.30-5.90) m/uL Hgb 9.6 L (13.0-17.5) gm/dL Hct 30.4 L (39.0-53.0) % RDW 15.7 H (11.5-15.5) % APTT 39.8 H (22.0-30.0) sec ABG pH (7.35-7.45) ABG pCO2 (35-45) mmHg ABG HCO3 (21-25) mmol/L ABG Total CO2 (19-24) mmol/L ABG O2 Saturation (94-97) % Hemoglobin (13.0-17.5) gm/dL Sodium 146 H (137-145) mmol/L Potassium 5.7 H (3.5-5.1) mmol/L Chloride 108 H (98-107) mmol/L BUN 140 H* (9-20) mg/dL Creatinine 2.53 H (0.66-1.25) mg/dL Glucose 203 H (74-99) mg/dL POC Glucose (mg/dL) (70-110) mg/dL Calcium 7.4 L (8.4-10.2) mg/dL Procalcitonin (0.02-0.50) ng/mL 06/15/24 06/15/24 06/15/24 Range/Units 06:02 06:27 09:30 WBC (3.8-10.6) k/uL RBC (4.30-5.90) m/uL Hgb (13.0-17.5) gm/dL Hct (39.0-53.0) % RDW (11.5-15.5) % APTT (22.0-30.0) sec ABG pH 7.28 L (7.35-7.45) ABG pCO2 64 H (35-45) mmHg ABG HCO3 30 H (21-25) mmol/L ABG Total CO2 32 H (19-24) mmol/L ABG O2 Saturation 97.6 H (94-97) % Hemoglobin 9.7 L (13.0-17.5) gm/dL Sodium (137-145) mmol/L Potassium (3.5-5.1) mmol/L Chloride (98-107) mmol/L BUN (9-20) mg/dL Creatinine (0.66-1.25) mg/dL Glucose (74-99) mg/dL POC Glucose (mg/dL) 199 H (70-110) mg/dL Calcium (8.4-10.2) mg/dL Procalcitonin 1.84 H (0.02-0.50) ng/mL 06/15/24 Range/Units 11:42 WBC (3.8-10.6) k/uL RBC (4.30-5.90) m/uL Hgb (13.0-17.5) gm/dL Hct (39.0-53.0) % RDW (11.5-15.5) % APTT (22.0-30.0) sec ABG pH (7.35-7.45) ABG pCO2 (35-45) mmHg ABG HCO3 (21-25) mmol/L ABG Total CO2 (19-24) mmol/L ABG O2 Saturation (94-97) % Hemoglobin (13.0-17.5) gm/dL Sodium (137-145) mmol/L Potassium (3.5-5.1) mmol/L Chloride (98-107) mmol/L BUN (9-20) mg/dL Creatinine (0.66-1.25) mg/dL Glucose (74-99) mg/dL POC Glucose (mg/dL) 200 H (70-110) mg/dL Calcium (8.4-10.2) mg/dL Procalcitonin (0.02-0.50) ng/mL Assessment and Plan Assessment: 1. Acute kidney injury, oliguric ATN from severe hypotension and sepsis. UA shows 1+ protein moderate blood. Ultrasound is unremarkable. Previous creatinine 1.0 on 02/01/2024 2. Septic shock from pneumonia, viral and bacterial pneumonia as well. Sputum culture and blood cultures grew Streptococcus pneumonia 3. Influenza A 4. Severe respiratory acidosis from respiratory failure slowly improving 5. Chronic A-fib status post cardiac ablation 6. Hyperkalemia associated with acute kidney injury Plan: Continue with IV Lasix, agree with increasing to twice daily Treat hyperkalemia with IV insulin as blood sugars are on the higher side Continue to avoid nephrotoxic agents Continue with antibiotics. Vasopressors are being decreased. We will continue to evaluate daily for need for renal replacement therapy.
[2024-06-15 18:01] LABS: Glucose,Whole Blood 209 mg/dL (70-110)
[2024-06-15] MEDS: FUROSEMIDE 10 MG/ML 10 ML VIAL IV SCH (19:54)
[2024-06-15 23:48] LABS: Glucose,Whole Blood 231 mg/dL (70-110)
[2024-06-16 04:03] LABS: Glucose,Whole Blood 234 mg/dL (70-110)
[2024-06-16 04:35] LABS: Anisocytosis Slight; Basophils % (A) 0 %; Eosinophils % (A) 0 %; HCT 28.9 % (39.0-53.0); HGB 9.1 gm/dL (13.0-17.5); Lymphocytes # (A) 0.5 k/uL (1.0-4.8); Lymphocytes % (A) 3 %; MCH 28.7 pg (25.0-35.0); MCHC 31.6 g/dL (31.0-37.0); MCV 90.9 fL (80.0-100.0); Mean Platelet Volume 11.2; Monocytes # (A) 0.5 k/uL (0-1.0); Monocytes % (A) 3 %; Neutrophils # (A) 17.3 k/uL (1.3-7.7); Neutrophils % (A) 93 %; Platelet Count 206 k/uL (150-450); RBC 3.17 m/uL (4.30-5.90); RDW 16.1 % (11.5-15.5); WBC 18.6 k/uL (3.8-10.6)
[2024-06-16 05:01] LABS: African American GFR (CKD) 32 (>60 ml/min/1.73 sqM); Anion Gap 2 mmol/L; Calcium 7.3 mg/dL (8.4-10.2); Carbon Dioxide 38 mmol/L (22-30); Chloride 111 mmol/L (98-107); Glucose 193 mg/dL (74-99); Magnesium 3.8 mg/dL (1.6-2.3); Non-African American GFR(CKD) 28 (>60 ml/min/1.73 sqM); Potassium 5.8 mmol/L (3.5-5.1); Sodium 151 mmol/L (137-145)
[2024-06-16 05:10] LABS: Blood Urea Nitrogen 143 mg/dL (9-20)
[2024-06-16 05:41] LABS: ABG Base Excess 6.7 mmol/L; ABG HCO3 34 mmol/L (21-25); ABG Oxygen Saturation 95.2 % (94-97); ABG PCO2 64 mmHg (35-45); ABG PH 7.34 (7.35-7.45); ABG PO2 79 mmHg (83-108); ABG TCO2 36 mmol/L (19-24)
[2024-06-16 06:03] LABS: Allen Test Performed? No
[2024-06-16 06:06] LABS: Glucose,Whole Blood 195 mg/dL (70-110)
[2024-06-16] MEDS: DEXTROSE 5% IN WATER 1,000 ML IV SCH (08:07)
[2024-06-16] MEDS: SODIUM ZIRCONIUM CYCLOSILICATE 10 GM PACKET PO ONE (08:19)
[2024-06-16] MEDS: DESMOPRESSIN ACETATE 40 MCG in SODIUM CHLORIDE 0.9% 50 ML IVPB ONE (08:19)
[2024-06-16] MEDS: INSULIN REGULAR 100 UNIT/ML VIAL (IV) IV ONE (08:25)
--- NOTE | 2024-06-16 09:15 | XR ---
EXAMINATION TYPE: XR chest 1V portable DATE OF EXAM: 06/16/2024 3:15 AM COMPARISON: None. CLINICAL INDICATION: Male, 69 years old with history of Intubated, difficulty breathing TECHNIQUE: XR chest 1V portable view(s) obtained. FINDINGS: The heart size is normal. The pulmonary vasculature is prominent. Diffuse increased lung markings are present. Greater infiltrates are at the lung bases may be increas ing at the left base. Correlate for pulmonary edema. Pneumonia and atypical pneumonia should be consi dered. Left central venous catheter is present with the tip in the superior vena cava region. Endotracheal t ube has its tip 6.3 cm above the marie. Nasogastric tube transverses the thorax. IMPRESSION: 1. Mild increasing bibasilar infiltrates with prominent pulmonary vascular markings. Correlate for pu lmonary edema, atelectasis and atypical pneumonia. [facility], , 06/16/2024 9:12 AM
--- NOTE | 2024-06-16 09:52 | P.PN ---
Subjective Progress Note Date: 06/16/24 PROGRESS NOTE The patient is a 69-year-old male who presented with symptoms of progressive dyspnea, diagnosed with pneumonia and influenza A, requiring mechanical ventilation. Cardiology consultation was requested because of atrial fibrillation. The patient is intubated and sedated. He has a history of atrial fibrillation, status post ablation in January 2024. He was in sinus mechanism on presentation and back in atrial fibrillation at this time with episode of rapid ventricle response. He is on vasopressors. He had an echocardiogram that showed a preserved systolic function, the study was technically difficult. The patient has been anticoagulated as an outpatient. Her chest x-ray shows severe infiltration bilaterally consistent with a pneumonia. Presentation he had evidence of acute renal injury and hypotension related to sepsis. He has been initiated on amiodarone and he is on vasopressin in addition to norepinephrine June 13: The patient remains intubated and sedated. He had episodes of paroxysmal atrial fibrillation. He is in sinus mechanism at this time. He continues to be on norepinephrine. His urine output is stable. His chest x-ray shows bilateral infiltrate consistent with his pneumonia. There is no evidence of ventricular ectopic activity.There is significant worsening of his renal function with a BUN up to 101 with a creatinine of 2.94. Tolerating tube feeding June 14: The patient remains intubated and sedated. He is in atrial fibrillation with controlled ventricular response. He is on the lower dose of norepinephrine. His urine output has been stable and he is tolerating tube feeding. He had no evidence of ventricular ectopic activity. He continues to have significant infiltrate on his chest x-ray. June 15: The patient remains intubated and sedated, he is on the lower PEEP. He continues to be in atrial fibrillation with controlled ventricular response. His urinary output has improved. There is no evidence of ventricular ectopic activity. His chest x-ray continues to show evidence of infiltrate bilaterally. Continues to be on IV heparin. He has worsening of his renal functions. June 16: The patient remains intubated and sedated on PEEP of 16. His dose of Levophed has been decreased. He continues to be on IV diuretics with good urine output. He is in atrial fibrillation with controlled ventricular response but no evidence of ventricular ectopic activity. His chest x-ray continues to show bilateral infiltrate. Medications: IV heparin, Rocephin, insulin, methylprednisolone, metoprolol tartrate 25 mg twice a day, Tamiflu, vancomycin, amiodarone 400 mg twice a day, Lasix 80 mg IV twice daily, amiodarone 400 mg twice a day PHYSICAL EXAMINATION: Blood pressure 127/50 heart rate 95, intubated and sedated LUNGS: Clear to auscultation anteriorly HEART: Irregular rate and rhythm, S1, S2. No S3. Systolic ejection murmur ABDOMEN: Soft, positive bowel sounds, no organomegaly EXTREMETIES: +1 edema LAB: Hemoglobin 9.1, WBC 18.6, pH 7.34, pCO2 64 with a pO2 of 79. BUN 143 with a c reatinine of 2.32. IMPRESSION: 1. Acute respiratory failure with bilateral pneumonia and influenza A requiring mechanical ventilation 2. Paroxysmal atrial fibrillation status post ablation in 2023, back in atrial fibrillation 3. Acute renal injury related to the sepsis and hypotension,, good urine output 4. Leukocytosis PLAN: 1. Continue supportive care, if heart rate stable decrease amiodarone tomorrow 2. Follow renal functions closely. 3. Continue IV anticoagulation for now, switch to oral if no plan for any procedure 4. Prognosis is guarded Objective - Vital Signs Vital signs: Vital Signs Temp 98.2 F 06/16/24 04:00 Pulse 103 H 06/16/24 08:56 Resp 34 H 06/16/24 07:00 BP 128/57 06/15/24 07:00 Pulse Ox 93 L 06/16/24 07:00 FiO2 50 06/16/24 08:49 Intake & Output 06/15/24 06/16/24 06/16/24 18:59 06:59 18:59 Intake Total 8272.863 9605.663 138 Output Total 2190 2440 150 Balance -960.318 -860.337 -12 Weight 128.6 kg Intake: IV 166 36 3 0.9 Nomal Saline Pressure 36 36 3 Bag 0.9% NS KVO 30 cefTRIAXone 2 gm In 100 Sodium Chloride 0.9% 50 ml @ 100 mls/hr IVPB Q24HR [facility] Rx#:[id number] Intake, IV Titration 897.547 2976.663 100 Amount Heparin Sod,Pork in 0.45% 250 NaCl 25,000 unit In 0.45 % NaCl 1 250ml.bag @ 8. 375 UNITS/KG/HR 10 mls/hr IV .Q24H [facility] Rx#: [id number] Norepinephrine 8 mg In 178.257 318.799 Sodium Chloride 0.9% 250 ml @ 0.03 MCG/KG/MIN 6. 589 mls/hr IV .Q24H [facility] Rx#:[id number] fentaNYL (PF). 1,000 mcg 75.425 95.682 100 In Sodium Chloride 0.9% 80 ml @ 0.5 MCG/KG/HR 6. 465 mls/hr IV .[id number] [facility] Rx#:[id number] propofoL 1,000 mg In 300 369.182 Empty Bag 1 bag @ 15 MCG/ KG/MIN 8.981 mls/hr IV . Q11H9M [facility] Rx#:[id number] Tube Feeding 420 420 35 Other 90 90 Output: Urine 2190 2440 150 Other: Voiding Method Indwelling Catheter Indwelling Catheter ABP, PAP, CO, CI - Last Documented Arterial Blood Pressure 127/51 - Labs CBC & Chem 7: 06/16/24 04:20 06/16/24 04:20 Labs: Abnormal Lab Results - Last 24 Hours (Table) 06/15/24 06/15/24 06/15/24 Range/Units 09:30 11:42 18:00 WBC (3.8-10.6) k/uL RBC (4.30-5.90) m/uL Hgb (13.0-17.5) gm/dL Hct (39.0-53.0) % RDW (11.5-15.5) % Neutrophils # (1.3-7.7) k/uL Lymphocytes # (1.0-4.8) k/uL APTT (22.0-30.0) sec ABG pH (7.35-7.45) ABG pCO2 (35-45) mmHg ABG pO2 (83-108) mmHg ABG HCO3 (21-25) mmol/L ABG Total CO2 (19-24) mmol/L Hemoglobin (13.0-17.5) gm/dL Sodium (137-145) mmol/L Potassium (3.5-5.1) mmol/L Chloride (98-107) mmol/L Carbon Dioxide (22-30) mmol/L BUN (9-20) mg/dL Creatinine (0.66-1.25) mg/dL Glucose (74-99) mg/dL POC Glucose (mg/dL) 200 H 209 H (70-110) mg/dL Calcium (8.4-10.2) mg/dL Magnesium (1.6-2.3) mg/dL Procalcitonin 1.84 H (0.02-0.50) ng/mL 06/15/24 06/16/24 06/16/24 Range/Units 23:47 04:02 04:20 WBC 18.6 H (3.8-10.6) k/uL RBC 3.17 L (4.30-5.90) m/uL Hgb 9.1 L (13.0-17.5) gm/dL Hct 28.9 L (39.0-53.0) % RDW 16.1 H (11.5-15.5) % Neutrophils # 17.3 H (1.3-7.7) k/uL Lymphocytes # 0.5 L (1.0-4.8) k/uL APTT (22.0-30.0) sec ABG pH (7.35-7.45) ABG pCO2 (35-45) mmHg ABG pO2 (83-108) mmHg ABG HCO3 (21-25) mmol/L ABG Total CO2 (19-24) mmol/L Hemoglobin (13.0-17.5) gm/dL Sodium (137-145) mmol/L Potassium (3.5-5.1) mmol/L Chloride (98-107) mmol/L Carbon Dioxide (22-30) mmol/L BUN (9-20) mg/dL Creatinine (0.66-1.25) mg/dL Glucose (74-99) mg/dL POC Glucose (mg/dL) 231 H 234 H (70-110) mg/dL Calcium (8.4-10.2) mg/dL Magnesium (1.6-2.3) mg/dL Procalcitonin (0.02-0.50) ng/mL 06/16/24 06/16/24 06/16/24 Range/Units 04:20 04:20 05:35 WBC (3.8-10.6) k/uL RBC (4.30-5.90) m/uL Hgb (13.0-17.5) gm/dL Hct (39.0-53.0) % RDW (11.5-15.5) % Neutrophils # (1.3-7.7) k/uL Lymphocytes # (1.0-4.8) k/uL APTT 57.5 H (22.0-30.0) sec ABG pH 7.34 L (7.35-7.45) ABG pCO2 64 H (35-45) mmHg ABG pO2 79 L (83-108) mmHg ABG HCO3 34 H (21-25) mmol/L ABG Total CO2 36 H (19-24) mmol/L Hemoglobin 9.2 L (13.0-17.5) gm/dL Sodium 151 H (137-145) mmol/L Potassium 5.8 H (3.5-5.1) mmol/L Chloride 111 H (98-107) mmol/L Carbon Dioxide 38 H (22-30) mmol/L BUN 143 H* (9-20) mg/dL Creatinine 2.32 H (0.66-1.25) mg/dL Glucose 193 H (74-99) mg/dL POC Glucose (mg/dL) (70-110) mg/dL Calcium 7.3 L (8.4-10.2) mg/dL Magnesium 3.8 H (1.6-2.3) mg/dL Procalcitonin (0.02-0.50) ng/mL 06/16/24 Range/Units 06:04 WBC (3.8-10.6) k/uL RBC (4.30-5.90) m/uL Hgb (13.0-17.5) gm/dL Hct (39.0-53.0) % RDW (11.5-15.5) % Neutrophils # (1.3-7.7) k/uL Lymphocytes # (1.0-4.8) k/uL APTT (22.0-30.0) sec ABG pH (7.35-7.45) ABG pCO2 (35-45) mmHg ABG pO2 (83-108) mmHg ABG HCO3 (21-25) mmol/L ABG Total CO2 (19-24) mmol/L Hemoglobin (13.0-17.5) gm/dL Sodium (137-145) mmol/L Potassium (3.5-5.1) mmol/L Chloride (98-107) mmol/L Carbon Dioxide (22-30) mmol/L BUN (9-20) mg/dL Creatinine (0.66-1.25) mg/dL Glucose (74-99) mg/dL POC Glucose (mg/dL) 195 H (70-110) mg/dL Calcium (8.4-10.2) mg/dL Magnesium (1.6-2.3) mg/dL Procalcitonin (0.02-0.50) ng/mL
[2024-06-16] MEDS: LACTULOSE 20 GM/30 ML CUP PO SCH (10:19)
--- NOTE | 2024-06-16 11:00 | P.PN ---
Subjective Patient is seen for follow-up for acute kidney injury. Renal function is stable, slightly improved. BUN disproportionately elevated from steroids and hypercatabolic state. Creatinine is 2325 today. Lasix increased to twice a day. Urine output 70-100 cc an hour Potassium was 5.8 today. Sodium is 151 Objective - Vital Signs Vital signs: Vital Signs Temp 98.2 F 06/16/24 04:00 Pulse 103 H 06/16/24 08:56 Resp 34 H 06/16/24 07:00 BP 128/57 06/15/24 07:00 Pulse Ox 93 L 06/16/24 07:00 FiO2 50 06/16/24 08:49 Intake & Output 06/15/24 06/16/24 06/16/24 18:59 06:59 18:59 Intake Total 5269.082 2360.663 177.531 Output Total 2190 2440 150 Balance -960.318 -860.337 27.531 Weight 128.6 kg Intake: IV 166 36 3 0.9 Nomal Saline Pressure 36 36 3 Bag 0.9% NS KVO 30 cefTRIAXone 2 gm In 100 Sodium Chloride 0.9% 50 ml @ 100 mls/hr IVPB Q24HR [facility] Rx#:[id number] Intake, IV Titration 101.085 1828.663 139.531 Amount Heparin Sod,Pork in 0.45% 250 NaCl 25,000 unit In 0.45 % NaCl 1 250ml.bag @ 8. 375 UNITS/KG/HR 10 mls/hr IV .Q24H [facility] Rx#: [id number] Norepinephrine 8 mg In 178.257 318.799 39.531 Sodium Chloride 0.9% 250 ml @ 0.03 MCG/KG/MIN 6. 589 mls/hr IV .Q24H [facility] Rx#:[id number] fentaNYL (PF). 1,000 mcg 75.425 95.682 100 In Sodium Chloride 0.9% 80 ml @ 0.5 MCG/KG/HR 6. 465 mls/hr IV .[id number] [facility] Rx#:[id number] propofoL 1,000 mg In 300 369.182 Empty Bag 1 bag @ 15 MCG/ KG/MIN 8.981 mls/hr IV . Q11H9M [facility] Rx#:[id number] Tube Feeding 420 420 35 Other 90 90 Output: Urine 2190 2440 150 Other: Voiding Method Indwelling Catheter Indwelling Catheter ABP, PAP, CO, CI - Last Documented Arterial Blood Pressure 127/51 - Exam Patient is sedated and on the vent Examination of the heart S1 and S2 Examination the lungs bilateral breath sounds are heard Abdomen is soft obese Examination of lower extremity shows 2+ edema with severe scrotal edema - Labs CBC & Chem 7: 06/16/24 04:20 06/16/24 04:20 Labs: Abnormal Lab Results - Last 24 Hours (Table) 06/15/24 06/15/24 06/15/24 Range/Units 09:30 11:42 18:00 WBC (3.8-10.6) k/uL RBC (4.30-5.90) m/uL Hgb (13.0-17.5) gm/dL Hct (39.0-53.0) % RDW (11.5-15.5) % Neutrophils # (1.3-7.7) k/uL Lymphocytes # (1.0-4.8) k/uL APTT (22.0-30.0) sec ABG pH (7.35-7.45) ABG pCO2 (35-45) mmHg ABG pO2 (83-108) mmHg ABG HCO3 (21-25) mmol/L ABG Total CO2 (19-24) mmol/L Hemoglobin (13.0-17.5) gm/dL Sodium (137-145) mmol/L Potassium (3.5-5.1) mmol/L Chloride (98-107) mmol/L Carbon Dioxide (22-30) mmol/L BUN (9-20) mg/dL Creatinine (0.66-1.25) mg/dL Glucose (74-99) mg/dL POC Glucose (mg/dL) 200 H 209 H (70-110) mg/dL Calcium (8.4-10.2) mg/dL Magnesium (1.6-2.3) mg/dL Procalcitonin 1.84 H (0.02-0.50) ng/mL 06/15/24 06/16/24 06/16/24 Range/Units 23:47 04:02 04:20 WBC 18.6 H (3.8-10.6) k/uL RBC 3.17 L (4.30-5.90) m/uL Hgb 9.1 L (13.0-17.5) gm/dL Hct 28.9 L (39.0-53.0) % RDW 16.1 H (11.5-15.5) % Neutrophils # 17.3 H (1.3-7.7) k/uL Lymphocytes # 0.5 L (1.0-4.8) k/uL APTT (22.0-30.0) sec ABG pH (7.35-7.45) ABG pCO2 (35-45) mmHg ABG pO2 (83-108) mmHg ABG HCO3 (21-25) mmol/L ABG Total CO2 (19-24) mmol/L Hemoglobin (13.0-17.5) gm/dL Sodium (137-145) mmol/L Potassium (3.5-5.1) mmol/L Chloride (98-107) mmol/L Carbon Dioxide (22-30) mmol/L BUN (9-20) mg/dL Creatinine (0.66-1.25) mg/dL Glucose (74-99) mg/dL POC Glucose (mg/dL) 231 H 234 H (70-110) mg/dL Calcium (8.4-10.2) mg/dL Magnesium (1.6-2.3) mg/dL Procalcitonin (0.02-0.50) ng/mL 06/16/24 06/16/24 06/16/24 Range/Units 04:20 04:20 05:35 WBC (3.8-10.6) k/uL RBC (4.30-5.90) m/uL Hgb (13.0-17.5) gm/dL Hct (39.0-53.0) % RDW (11.5-15.5) % Neutrophils # (1.3-7.7) k/uL Lymphocytes # (1.0-4.8) k/uL APTT 57.5 H (22.0-30.0) sec ABG pH 7.34 L (7.35-7.45) ABG pCO2 64 H (35-45) mmHg ABG pO2 79 L (83-108) mmHg ABG HCO3 34 H (21-25) mmol/L ABG Total CO2 36 H (19-24) mmol/L Hemoglobin 9.2 L (13.0-17.5) gm/dL Sodium 151 H (137-145) mmol/L Potassium 5.8 H (3.5-5.1) mmol/L Chloride 111 H (98-107) mmol/L Carbon Dioxide 38 H (22-30) mmol/L BUN 143 H* (9-20) mg/dL Creatinine 2.32 H (0.66-1.25) mg/dL Glucose 193 H (74-99) mg/dL POC Glucose (mg/dL) (70-110) mg/dL Calcium 7.3 L (8.4-10.2) mg/dL Magnesium 3.8 H (1.6-2.3) mg/dL Procalcitonin (0.02-0.50) ng/mL 06/16/24 Range/Units 06:04 WBC (3.8-10.6) k/uL RBC (4.30-5.90) m/uL Hgb (13.0-17.5) gm/dL Hct (39.0-53.0) % RDW (11.5-15.5) % Neutrophils # (1.3-7.7) k/uL Lymphocytes # (1.0-4.8) k/uL APTT (22.0-30.0) sec ABG pH (7.35-7.45) ABG pCO2 (35-45) mmHg ABG pO2 (83-108) mmHg ABG HCO3 (21-25) mmol/L ABG Total CO2 (19-24) mmol/L Hemoglobin (13.0-17.5) gm/dL Sodium (137-145) mmol/L Potassium (3.5-5.1) mmol/L Chloride (98-107) mmol/L Carbon Dioxide (22-30) mmol/L BUN (9-20) mg/dL Creatinine (0.66-1.25) mg/dL Glucose (74-99) mg/dL POC Glucose (mg/dL) 195 H (70-110) mg/dL Calcium (8.4-10.2) mg/dL Magnesium (1.6-2.3) mg/dL Procalcitonin (0.02-0.50) ng/mL Assessment and Plan Assessment: 1. Acute kidney injury, oliguric ATN from severe hypotension and sepsis. UA shows 1+ protein moderate blood. Ultrasound is unremarkable. Previous cre atinine 1.0 on 02/01/2024 2. Septic shock from pneumonia, viral and bacterial pneumonia as well. Sputum culture and blood cultures grew Streptococcus pneumonia 3. Influenza A 4. Severe respiratory acidosis from respiratory failure slowly improving 5. Chronic A-fib status post cardiac ablation 6. Hyperkalemia associated with acute kidney injury 7. Hypernatremia associated with free water deficit. Plan: Continue with IV Lasix, agree with increasing to twice daily Add free water with tube feedings Add D5W for about 6 hours Treat hyperkalemia with IV insulin as blood sugars are on the higher side Continue to avoid nephrotoxic agents Continue with antibiotics. Vasopressors are being decreased. We will continue to evaluate daily for need for renal replacement therapy.
--- NOTE | 2024-06-16 12:33 | P.PN ---
Subjective Progress Note Date: 06/16/24 Pressor requirement decreased to 0.05. Vent settings improving. BUN is 140s, but creatinine improved again and UOP improved on lasix. However, Pt does have increase in Na and contraction alkalosis on lab work. General: intubated, sedated HEENT: normocephalic, atraumatic, no tracheal deviation Respiratory: symmetric chest rise, no cyanosis, ventilator dependent CVS: perfusing all extremities, no distal gangrene, trace pitting edema GI: soft, ND : no SPT, no CVAT, black is present Neuro: sedated Hospital Course: Patient is a 69-year-old male with past medical history of A-fib status post abl ation, hypertension. History obtained from chart review. Per ER note, EMS was called by patient's family for shortness of breath, family reported that multiple family members were sick in the house. They noted his SpO2 to be in 60s on placed him on CPAP with no improvement and he continued to breathe rapidly, spiking fever Initially, patient was placed on BiPAP for hypoxia, remained tachypneic and in respiratory distress despite BiPAP. Patient spent 1-1/2-hour on BiPAP with no improvement in his respiratory status, therefore, decision was made to intubate on 06/10, and was sedated, paralyzed, and transferred to ICU. Started on treatment for acute hypoxic respiratory failure secondary to bilateral pneumonia, influenza A pneumonia with cefepime, vancomycin; tamiflu, and solumedrol. Repeat chest x-ray showed diffuse pulmonary infiltrates and blood gases showed severe acidosis with pH of 7.05, patient was started on bicarb drip overnight, his blood pressure dropped requiring pressors. Hospital course complicated by oliguric renal failure. Nephrology consulted, kidney ultrasound and UA ordered, showed no obstruction or hydronephrosis. Blood cultures growing strep pneumo, antibiotics de-escalated to ceftriaxone 2 g daily. Cardiology consulted for A-fib with RVR, patient started on amiodarone drip, then switched to oral amiodarone starting as well as heparin gtt. Assessment and Plan: Septic shock secondary with Acute Hypoxemic Respiratory Failure Community-acquired strep pneumo pneumonia, influenza A infection Strep pneumo bacteremia -Vent settings per ICU: currently being weaned down PEEP 18-->16, FiO2 70%-->60%-->50% -Continue ceftriaxone 2 g daily, antibiotics SOT 06/10 -Remains on solumedrol -Tamiflu has been discontinued 06/15 -Continue DuoNebs q4 hours -Patient's girlfriend updated on 06/16, all questions answered Steroid induced hyperglycemia Prediabetes -SSI, Accu-Cheks every 6 hours, added Levemir, increased to 25 units twice daily -added q6h lispro [facility] -qualifies for metformin on discharge if kidney function recovers, otherwise defer to outpatient follow up Acute Kidney Injury secondary to ATN, oliguric Hyperkalemia Hypernatremia Metabolic Alkalosis -Nephrology following -Lasix at 80mg IV q12hr -BUN elevated, but Cr improving -Na worsening, FWF increased to 100 q4h Persistent A-fib status post ablation : -Continue heparin drip, -Amiodarone p.o. 400 twice daily, Lopressor 25 twice daily. -Cardiology following History of hypertension: GERD: Left forehead lipoma Obesity, Class III -Home medications reviewed and reconciled GI PPx: Stress ulcer prophylaxis with IV Protonix CODE STATUS: default full code DVT prophylaxis: Heparin drip Anticipated discharge date: tbd Anticipated discharge place: tbd Objective - Vital Signs Vital signs: Vital Signs Temp 98.2 F 06/16/24 04:00 Pulse 94 06/16/24 12:23 Resp 34 H 06/16/24 07:00 BP 128/57 06/15/24 07:00 Pulse Ox 93 L 06/16/24 07:00 FiO2 50 06/16/24 12:15 Intake & Output 06/15/24 06/16/24 06/16/24 18:59 06:59 18:59 Intake Total 1471.392 8279.663 177.531 Output Total 2190 2440 150 Balance -960.318 -860.337 27.531 Weight 128.6 kg Intake: IV 166 36 3 0.9 Nomal Saline Pressure 36 36 3 Bag 0.9% NS KVO 30 cefTRIAXone 2 gm In 100 Sodium Chloride 0.9% 50 ml @ 100 mls/hr IVPB Q24HR [facility] Rx#:[id number] Intake, IV Titration 353.647 1316.663 139.531 Amount Heparin Sod,Pork in 0.45% 250 NaCl 25,000 unit In 0.45 % NaCl 1 250ml.bag @ 8. 375 UNITS/KG/HR 10 mls/hr IV .Q24H [facility] Rx#: [id number] Norepinephrine 8 mg In 178.257 318.799 39.531 Sodium Chloride 0.9% 250 ml @ 0.03 MCG/KG/MIN 6. 589 mls/hr IV .Q24H [facility] Rx#:[id number] fentaNYL (PF). 1,000 mcg 75.425 95.682 100 In Sodium Chloride 0.9% 80 ml @ 0.5 MCG/KG/HR 6. 465 mls/hr IV .[id number] [facility] Rx#:[id number] propofoL 1,000 mg In 300 369.182 Empty Bag 1 bag @ 15 MCG/ KG/MIN 8.981 mls/hr IV . Q11H9M [facility] Rx#:[id number] Tube Feeding 420 420 35 Other 90 90 Output: Urine 2190 2440 150 Other: Voiding Method Indwelling Catheter Indwelling Catheter ABP, PAP, CO, CI - Last Documented Arterial Blood Pressure 127/51 - Labs CBC & Chem 7: 06/16/24 04:20 06/16/24 04:20 Labs: Abnormal Lab Results - Last 24 Hours (Table) 06/15/24 06/15/24 06/15/24 Range/Units 09:30 18:00 23:47 WBC (3.8-10.6) k/uL RBC (4.30-5.90) m/uL Hgb (13.0-17.5) gm/dL Hct (39.0-53.0) % RDW (11.5-15.5) % Neutrophils # (1.3-7.7) k/uL Lymphocytes # (1.0-4.8) k/uL APTT (22.0-30.0) sec ABG pH (7.35-7.45) ABG pCO2 (35-45) mmHg ABG pO2 (83-108) mmHg ABG HCO3 (21-25) mmol/L ABG Total CO2 (19-24) mmol/L Hemoglobin (13.0-17.5) gm/dL Sodium (137-145) mmol/L Potassium (3.5-5.1) mmol/L Chloride (98-107) mmol/L Carbon Dioxide (22-30) mmol/L BUN (9-20) mg/dL Creatinine (0.66-1.25) mg/dL Glucose (74-99) mg/dL POC Glucose (mg/dL) 209 H 231 H (70-110) mg/dL Calcium (8.4-10.2) mg/dL Magnesium (1.6-2.3) mg/dL Procalcitonin 1.84 H (0.02-0.50) ng/mL 06/16/24 06/16/24 06/16/24 Range/Units 04:02 04:20 04:20 WBC 18.6 H (3.8-10.6) k/uL RBC 3.17 L (4.30-5.90) m/uL Hgb 9.1 L (13.0-17.5) gm/dL Hct 28.9 L (39.0-53.0) % RDW 16.1 H (11.5-15.5) % Neutrophils # 17.3 H (1.3-7.7) k/uL Lymphocytes # 0.5 L (1.0-4.8) k/uL APTT (22.0-30.0) sec ABG pH (7.35-7.45) ABG pCO2 (35-45) mmHg ABG pO2 (83-108) mmHg ABG HCO3 (21-25) mmol/L ABG Total CO2 (19-24) mmol/L Hemoglobin (13.0-17.5) gm/dL Sodium 151 H (137-145) mmol/L Potassium 5.8 H (3.5-5.1) mmol/L Chloride 111 H (98-107) mmol/L Carbon Dioxide 38 H (22-30) mmol/L BUN 143 H* (9-20) mg/dL Creatinine 2.32 H (0.66-1.25) mg/dL Glucose 193 H (74-99) mg/dL POC Glucose (mg/dL) 234 H (70-110) mg/dL Calcium 7.3 L (8.4-10.2) mg/dL Magnesium 3.8 H (1.6-2.3) mg/dL Procalcitonin (0.02-0.50) ng/mL 06/16/24 06/16/24 06/16/24 Range/Units 04:20 05:35 06:04 WBC (3.8-10.6) k/uL RBC (4.30-5.90) m/uL Hgb (13.0-17.5) gm/dL Hct (39.0-53.0) % RDW (11.5-15.5) % Neutrophils # (1.3-7.7) k/uL Lymphocytes # (1.0-4.8) k/uL APTT 57.5 H (22.0-30.0) sec ABG pH 7.34 L (7.35-7.45) ABG pCO2 64 H (35-45) mmHg ABG pO2 79 L (83-108) mmHg ABG HCO3 34 H (21-25) mmol/L ABG Total CO2 36 H (19-24) mmol/L Hemoglobin 9.2 L (13.0-17.5) gm/dL Sodium (137-145) mmol/L Potassium (3.5-5.1) mmol/L Chloride (98-107) mmol/L Carbon Dioxide (22-30) mmol/L BUN (9-20) mg/dL Creatinine (0.66-1.25) mg/dL Glucose (74-99) mg/dL POC Glucose (mg/dL) 195 H (70-110) mg/dL Calcium (8.4-10.2) mg/dL Magnesium (1.6-2.3) mg/dL Procalcitonin (0.02-0.50) ng/mL Microbiology - Last 24 Hours (Table) 06/15/24 09:00 Urine Culture - Final Urine,Catheterized
--- NOTE | 2024-06-16 12:46 | P.PN ---
Subjective Progress Note Date: 06/16/24 69-year-old male patient came into the emergency department for shortness of breath. According to the significant other, the patient was sick approximately a week ago and his condition has been progressively getting worse. The patient has been falling. He has been having difficulties in keeping himself up and moving around over the past 24 hours. Based on that, he came into the emergency department. His initial pulse ox was 60% and he was placed on a BiPAP and rapidly following that, the patient was intubated and placed on the mechanical ventilator. Chest x-ray at time of admission showed extensive pneumonia with left upper lobe consolidation and air bronchograms and bibasilar pulmonary inf iltrates. Patient tested positive for influenza A. Postintubation, the patient's blood gases showed a pH of 7.36 with a pCO2 of 43 and pO2 of 60. Nevertheless, by the time he arrived to the ICU, the patient was again hypoxic with a pulse ox of 78%. Necessary ventilator changes were done and currently the patient is in a rate of 26, tidal volume of 375, PEEP of 24 with an FiO2 of 100% and expiratory pause of 0.2 ms. The blood gas showed a pH of 7.16 with a pCO2 of 77 and pO2 of 66. Triple-lumen catheter was established in the left IJ. Arterial line was also established. The patient is currently on Tamiflu. He was also started on broad-spectrum antibiotics utilizing a combination of c efepime Zithromax and vancomycin. Started on systemic steroids. Hemodynamically stable. No hypotension. Cardiac rhythm is sinus. According to the significant other, he has history of paroxysmal atrial fibrillation and the patient has undergone ablation. Cardiac rhythm is sinus. He also has hy pertension. He is a former smoker. Does not utilize any form of oxygen therapy or inhalers on outpatient basis. No history of bronchial asthma. No history of COPD. No history of any congestion or heart failure. The white cell count of 15.3 with hemoglobin 15.8 and a platelet count of 265. Normal coagulation profile. BUN is 63 with a creatinine 1.42 and a sodium levels at 140 with a potassium level of 4.5. Initial lactic acid level was at 3.8 and dropped down to 2.0. The patient is currently on normal saline at rate of 100 cc an hour. Furthermore, he is sedated with propofol and paralytics with Bumex. In the intensive care unit. 06/11/2024, the patient is being seen for a follow-up. This morning, the patient remains on propofol running at 50 mcg/kg/min and the patient is also paralyzed with Nimbex at 1 mcg/kg/h. Remains on assist-control mode of mechanical ventilation. Rate is 32 with a tidal volume of 400, FiO2 is 100% with a PEEP of 24. Morning blood gases showed a pH of 7.05 with a pCO2 being more than 98 and pO2 was 102. Chest x-ray shows diffuse bilateral pulmonary infiltrates, slightly worse compared to yesterday. Hemodynamically, the patient was given a total of 3 L of IV fluids. Started on bicarb infusion which is running at 100 cc an hour. Patient is on norepinephrine running at 0.5 mcg/kg/min and vasopressin at 0.04 units. Urine output is extremely low almost absent and the patient has developed an acute kidney injury. Overall fluid balance is +6.3 L over the past 24 hours. The white cell count of 27 with a hemoglobin 12.1 and a platelet count of 311. Sodium is at 140, potassium is at 5.4, chloride 104 and bicarb is 28. BUN 66 with a creatinine of 2.1. Based on the morning blood gases, I dropped the PEEP down to 20, I removed the inspiratory pause. I brought up the tidal volume to 450 and increase the respirate up to 34. Most recent peak airway pressure is 37. Cervical pressure is 33. The subsequent blood gas obtained showed a pH of 7.11 with a pCO2 of 88 and a pO2 of 138. Based on that, the PEEP was dropped down to 18. The patient is currently on a tidal volume of 450 with a respiratory rate of 34. FiO2 was dropped down to 80%. The patient will be started on enteral feeding for nutritional support. Afebrile. Remains on broad-spectrum antibiotics. The patient on a combination of cefepime, Zithromax and vancomycin. The patient is also on Tamiflu. The patient on IV Solu-Medrol. 06/12/2024, the patient is being seen for a follow-up. Remains intubated on mechanical ventilator. Remains sedated and paralyzed. The patient is currently on propofol running at 50 mcg/kg/min and the patient is also on Nimbex at 1 mcg/kg/min. The patient remains on mechanical ventilator, assist-control mode at rate of 34, tidal volume of 450, FiO2 of 80% with a PEEP of 18. pH is 7.21 with a pCO2 of 73 and pO2 of 92. Peak airway pressure 37 in the setting of a pressure of 31. The patient remains in atrial fibrillation. The patient remains on amiodarone drip which is running at 0.5 mg/min. Patient remains on pressors. Patient is on norepinephrine at 0.5 mcg/kg/min and vasopressin 0.04 units. Urine output is in order of 20 to 30 cc an hour. The patient is in a positive fluid balance. The patient remains on a bicarb drip at rate of 100 cc an hour. He is receiving enteral feeding for nutritional support with vital HP at rate of 33 cc an hour. Noted his blood cultures came back positive for streptococcal pneumoniae and a sputum sample was also positive for Streptococcus and the patient has a pneumococcal pneumonia on top of his influenza A infection. The follow-up chest x-ray from today shows extensive bilateral consolidation there is worsening in the right lower lobe consolidation and persistent left upper lobe pulmonary infiltrate. The patient remains on a combination of cefepime, Zithromax and vancomycin. The patient remains on Tamiflu. The patient remains on IV Solu-Medrol. The patient remains on Levemir 12 units twice daily and NovoLog/scale coverage. The patient remains on IV Solu-Medrol.Blood work from today shows a WBC count of 20.8, hemoglobin 11.6 and a platelet count of 2 9. Patient also has a sodium level of 141, potassium level of 4.3, BUN is 82 with a creatinine of 2.7 chloride is 102 with a bicarb level of 28. Calcium levels at 6.2, ionized calcium is at 3.8, low. Magnesium is at 3.2. LFTs are normal. On 06/13/2024, the patient is being seen for a follow-up. The patient remains intubated on mechanical ventilator. The patient is on propofol running at 50 mcg/kg/min and the patient is also on Nimbex for paralysis. Noted the patient was given paralytic holiday yesterday. He became asynchronous on mechanical ventilator and based on that Nimbex was restarted. Another paralytic holiday will be given to this patient today. The patient remains on mechanical ventilator assist-control at rate of 34, tidal volume of 450, FiO2 of 70% with a PEEP of 18. Blood gas showed a pH of 7.22 with a pCO2 of 68 and pO2 of 75. The follow-up chest x-ray was done today and the patient was found to have slight improvement in the right lower lobe consolidation. The patient continues to have a left upper lobe consolidation. All of the lines and the tubes are still in place. The patient has a positive fluid balance of 5.1 L. IV fluids are currently at KVO. The patient is on vital high-protein at rate of 33 cc an hour. Remains on pressors. Urine output is in order 30 cc an hour. Blood sugars are elevated. In terms of antibiotic coverage, the patient remains on a combination of IV Rocephin and vancomycin. The patient remains on Tamiflu. The patient remains on IV Solu-Medrol.In terms of blood work from today, the patient's white cell count remains elevated at 18.6, hemoglobin 11 and a platelet count of 195. The BUN is at 101 with a creatinine of 2.9. Sodium levels at 141 with a potassium level of 5. Bicarb is at 26. The calcium level is at 6.4 and ionized calcium is 3.8, replaced. LFTs are normal. 06/14/2024, the patient is being seen for a follow-up. Remains intubated on the mechanical ventilator. This morning, the patient is off paralytics and the patient remains on propofol running at 65 mcg/kg/min. Remains on mechanical ventilator assist-control mode rate of 34, tidal volume of 450, FiO2 of 70% with a PEEP of 18. Blood gas showed a pH of 7.28 with a pCO2 of 59 and pO2 of 89. The patient remains hypotensive and remains on norepinephrine. The patient will be taken off vasopressin. Norepinephrine is running at 0.15 mcg/kg/min. Chest x-ray still showing stable bilateral pulmonary consolidation more extensive in the right lower lobe and the left upper lobe. Remains atrial fibrillation. Remains on IV Rocephin. Continues to receive enteral feeding for nutritional support. Remains on IV heparin regarding his ongoing atrial fibrillation. The WBC count is at 18, still elevated with a hemoglobin 10.3 and a platelet count of 193. Sodium is at 141, potassium is 5.1, bicarb is 27, BUN is 124 and creatinine is at 2.76. Despite ongoing renal failure, the patient is producing urine output. The patient was given Lasix and he continues to receive Lasix 80 mg on a daily basis. Rest of the medications remain unchanged. Completing course of Tamiflu. Remains on IV Rocephin. Remains on a combination of metoprolol 25 mg twice daily and amiodarone 4 mg p.o. twice daily for rate control. 06/15/2024, the patient is being seen for a follow-up. Remains intubated on mechanical ventilator. Remains sedated on propofol. Off paralytics and slightly asynchronous mechanical ventilator. May need fentanyl. Will continue monitoring his progress. Remains intubated on mechanical ventilator assist- control mode at rate of 36, tidal volume of 450, FiO2 of 70% with a PEEP of 18. Blood gas showed pH of 7.28 with a pCO2 of 64 pO2 of 106. Peak airway pressure is 36. Remains on norepinephrine running at 0.2 mcg/kg/min. Remains on vital HP at rate of 35 cc an hour. Follow-up chest x-ray done today shows improvement in the left upper lobe and right lower lobe pulmonary infiltrates. White cell count is at 19 with a hemoglobin 9.6 and a platelet count of 217. Sodium is at 146, potassium is at 5.7, chloride is 108, BUN is 140 with a creatinine of 2.5. Blood sugar is 200. Calcium level is at 7.4. Did have a episode of fever with a Tmax of 101.3. Remains on Lasix 80 mg IV every 24 hours. Fluid balance is +1.1 L over the past 24 hours and the patient has produced more than 2 L of urine output for yesterday. On 06/16/2024, patient is being seen for a follow-up. The patient remains on mechanical ventilator, sedated with propofol 65 mcg/kg/min and fentanyl at 1 mcg/kg/h. Chest x-ray findings are essentially stable and shows ongoing improvement in bilateral pulmonary infiltrates. Nevertheless, the patient remains intubated on mechanical ventilator. On today's evaluation, he is on assist-control at rate of 34, tidal volume of 450, FiO2 of 50% with a PEEP of 16. Blood gas showed a pH of 7.34 with pCO2 of 64 and pO2 of 79. The patient hemodynamically remains in atrial fibrillation, controlled rate. Vasopressin has been discontinued and norepinephrine has been weaned down to 0.07 mcg/kg/min. Remains on IV Lasix 80 mg every 12 hours. Fluid balance is -1.8 L over the past 24 hours. Remains on IV heparin. Remains on Lantus insulin 25 units daily and vital high-protein at rate of 35 cc an hour. Blood work from today shows a white cell count of 18, hemoglobin 9.1 and platelet count of 206. Sodium is at 151, K is at 5.8, BUN is at 143 with a creatinine of 2.3. Blood sugars at 195. Magnesium level is at 3.8. Calcium level is at 7.3. Objective - Vital Signs Vital signs: Vital Signs Temp 98.2 F 06/16/24 04:00 Pulse 94 06/16/24 12:23 Resp 34 H 06/16/24 07:00 BP 128/57 06/15/24 07:00 Pulse Ox 93 L 06/16/24 07:00 FiO2 50 06/16/24 12:15 Intake & Output 06/15/24 06/16/24 06/16/24 18:59 06:59 18:59 Intake Total 6678.264 2057.663 177.531 Output Total 2190 2440 150 Balance -960.318 -860.337 27.531 Weight 128.6 kg Intake: IV 166 36 3 0.9 Nomal Saline Pressure 36 36 3 Bag 0.9% NS KVO 30 cefTRIAXone 2 gm In 100 Sodium Chloride 0.9% 50 ml @ 100 mls/hr IVPB Q24HR [facility] Rx#:[id number] Intake, IV Titration 800.823 6366.663 139.531 Amount Heparin Sod,Pork in 0.45% 250 NaCl 25,000 unit In 0.45 % NaCl 1 250ml.bag @ 8. 375 UNITS/KG/HR 10 mls/hr IV .Q24H [facility]AC[facility] Rx#: [id number] Norepinephrine 8 mg In 178.257 318.799 39.531 Sodium Chloride 0.9% 250 ml @ 0.03 MCG/KG/MIN 6. 589 mls/hr IV .Q24H [facility] Rx#:[id number] fentaNYL (PF). 1,000 mcg 75.425 95.682 100 In Sodium Chloride 0.9% 80 ml @ 0.5 MCG/KG/HR 6. 465 mls/hr IV .[id number] [facility] Rx#:[id number] propofoL 1,000 mg In 300 369.182 Empty Bag 1 bag @ 15 MCG/ KG/MIN 8.981 mls/hr IV . [id number] [facility] Rx#:[id number] Tube Feeding 420 420 35 Other 90 90 Output: Urine 2190 2440 150 Other: Voiding Method Indwelling Catheter Indwelling Catheter ABP, PAP, CO, CI - Last Documented Arterial Blood Pressure 127/51 - Exam The patient appeared well nourished and normally developed. Vital signs as documented. The patient is sedated. The patient is off paralysis. Remains on mechanical ventilator. Orogastric orotracheal tube are both in place. Head exam is unremarkable. No scleral icterus or corneal arcus noted. Neck is without jugular venous distension, thyromegaly, or carotid bruits. Carotid upstrokes are brisk bilaterally. The patient has a left IJ triple-lumen catheter in place Lungs are clear to auscultation and percussion. Diminished breath sound bilateral lung with bibasilar crackles Cardiac exam reveals the PMI to be normally sized and situated. Rhythm is regu lar. First and second heart sounds normal. No murmurs, rubs or gallops. Abdominal exam reveals normal bowel sounds, no masses, no organomegaly and no aortic enlargement. Extremities are nonedematous and both femoral and pedal pulses are normal. Examination of the skin revealed no evidence of significant rashes, suspicious appearing nevi or other concerning lesions. Neurologically, the patient is a sedated - Labs CBC & Chem 7: 06/16/24 04:20 06/16/24 04:20 Labs: Abnormal Lab Results - Last 24 Hours (Table) 06/15/24 06/15/24 06/15/24 Range/Units 09:30 18:00 23:47 WBC (3.8-10.6) k/uL RBC (4.30-5.90) m/uL Hgb (13.0-17.5) gm/dL Hct (39.0-53.0) % RDW (11.5-15.5) % Neutrophils # (1.3-7.7) k/uL Lymphocytes # (1.0-4.8) k/uL APTT (22.0-30.0) sec ABG pH (7.35-7.45) ABG pCO2 (35-45) mmHg ABG pO2 (83-108) mmHg ABG HCO3 (21-25) mmol/L ABG Total CO2 (19-24) mmol/L Hemoglobin (13.0-17.5) gm/dL Sodium (137-145) mmol/L Potassium (3.5-5.1) mmol/L Chloride (98-107) mmol/L Carbon Dioxide (22-30) mmol/L BUN (9-20) mg/dL Creatinine (0.66-1.25) mg/dL Glucose (74-99) mg/dL POC Glucose (mg/dL) 209 H 231 H (70-110) mg/dL Calcium (8.4-10.2) mg/dL Magnesium (1.6-2.3) mg/dL Procalcitonin 1.84 H (0.02-0.50) ng/mL 06/16/24 06/16/24 06/16/24 Range/Units 04:02 04:20 04:20 WBC 18.6 H (3.8-10.6) k/uL RBC 3.17 L (4.30-5.90) m/uL Hgb 9.1 L (13.0-17.5) gm/dL Hct 28.9 L (39.0-53.0) % RDW 16.1 H (11.5-15.5) % Neutrophils # 17.3 H (1.3-7.7) k/uL Lymphocytes # 0.5 L (1.0-4.8) k/uL APTT (22.0-30.0) sec ABG pH (7.35-7.45) ABG pCO2 (35-45) mmHg ABG pO2 (83-108) mmHg ABG HCO3 (21-25) mmol/L ABG Total CO2 (19-24) mmol/L Hemoglobin (13.0-17.5) gm/dL Sodium 151 H (137-145) mmol/L Potassium 5.8 H (3.5-5.1) mmol/L Chloride 111 H (98-107) mmol/L Carbon Dioxide 38 H (22-30) mmol/L BUN 143 H* (9-20) mg/dL Creatinine 2.32 H (0.66-1.25) mg/dL Glucose 193 H (74-99) mg/dL POC Glucose (mg/dL) 234 H (70-110) mg/dL Calcium 7.3 L (8.4-10.2) mg/dL Magnesium 3.8 H (1.6-2.3) mg/dL Procalcitonin (0.02-0.50) ng/mL 06/16/24 06/16/24 06/16/24 Range/Units 04:20 05:35 06:04 WBC (3.8-10.6) k/uL RBC (4.30-5.90) m/uL Hgb (13.0-17.5) gm/dL Hct (39.0-53.0) % RDW (11.5-15.5) % Neutrophils # (1.3-7.7) k/uL Lymphocytes # (1.0-4.8) k/uL APTT 57.5 H (22.0-30.0) sec ABG pH 7.34 L (7.35-7.45) ABG pCO2 64 H (35-45) mmHg ABG pO2 79 L (83-108) mmHg ABG HCO3 34 H (21-25) mmol/L ABG Total CO2 36 H (19-24) mmol/L Hemoglobin 9.2 L (13.0-17.5) gm/dL Sodium (137-145) mmol/L Potassium (3.5-5.1) mmol/L Chloride (98-107) mmol/L Carbon Dioxide (22-30) mmol/L BUN (9-20) mg/dL Creatinine (0.66-1.25) mg/dL Glucose (74-99) mg/dL POC Glucose (mg/dL) 195 H (70-110) mg/dL Calcium (8.4-10.2) mg/dL Magnesium (1.6-2.3) mg/dL Procalcitonin (0.02-0.50) ng/mL Microbiology - Last 24 Hours (Table) 06/15/24 09:00 Urine Culture - Final Urine,Catheterized Assessment and Plan Plan: Acute hypoxic respiratory failure secondary to bilateral pneumococcal pneumonia and secondary sepsis. The patient remains intubated on mechanical ventilator. Oxygenation is stable. Chest x-ray shows improvement in the bilateral pulmonary infiltrates. Bilateral pneumococcal pneumonia following an acute influenza A infection. The patient's sputum sample was positive for streptococcal pneumonia and blood cultures were also positive. There is an obviously a a bacterial superinfection on top of his influenza A infection. The patient has extensive bilateral conso lidation, infiltrate left upper lobe is stable and there is dense consolidation in the right lower lobe. The patient remains on a combination of IV Rocephin and vancomycin has been discontinued Septic shock, second pneumococcal pneumonia with bacteremia. Patient remains on norepinephrine, the pressor requirements have dropped and the patient is currently on norepinephrine running at 0.07 mcg/kg/min Acute kidney injury, the patient continues to be in renal failure and the creatinine is on the rise. Urine output is adequate and the patient is on Lasix 80 mg IV every 24 hours. The patient is also being followed up by nephrology. Urine output is adequate. BUN is on the rise. Patient also has developed some hyperkalemia. Acute leukocytosis, white cell count is still elevated Atrial fibrillation with rapid ventricular response, currently on amiodarone . The heart rate is controlled rate. Remains on IV heparin. Hypertension Plan Keep the patient sedated with propofol and Fentanyl Drop the patient's PEEP down to 16 and FiO2 down to 60% Contiune Lasix to 80 mg IV every 12 hours Patient is to be given DDAVP Start free water supplements 100 cc per mg every 4 hours Will give the patient D5 water at a rate of 70 cc an hour for the next 6 hours Monitor sodium level Lokelma 10 g x 1 Repeat K level following treatment IV fluids are currently at KVO Completed the course of Tamiflu Continue IV Solu-Medrol 40 mg every 12 hours Continue Rocephin 2 g every 24 hours Blood cultures sputum cultures positive for Streptococcus pneumonia Wean off norepinephrine. Will give lactulose 20 cc twice a day and Dulcolax as the patient has not had a major bowel movements. Echocardiogram shows a preserved LV function Continue enteral feeding for nutritional support Lovenox 40 mg subcu for DVT prophylaxis IV Protonix Lantus insulin to 25 units Twice daily and sliding scale coverage. Monitor white cell count Monitor renal function and urine output Continue oral amiodarone 400 mg p.o. twice a day Continue IV heparin Condition is critical. Will monitor oxygenation very closely. This is a critical care evaluation that was done more than 35 minutes. Condition is critical at this point in time. I updated the family regarding his condition. Spoke with the significant other of the brother at the bedside. Time with Patient: Greater than 30
[2024-06-16 13:30] LABS: Glucose,Whole Blood 250 mg/dL (70-110)
[2024-06-16] MEDS: INSULIN LISPRO (HumaLOG) 100 UNIT/ML 10 mL VL SQ SCH (13:33)
[2024-06-16 18:08] LABS: Glucose,Whole Blood 196 mg/dL (70-110)
[2024-06-16] MEDS: methylPREDNISolone SOD SUCCI 40 MG/ML 1 ML VIAL IV SCH (20:42)
[2024-06-17 01:18] LABS: Glucose,Whole Blood 176 mg/dL (70-110)
[2024-06-17 04:50] LABS: Glucose,Whole Blood 161 mg/dL (70-110)
[2024-06-17 05:29] LABS: INR 1.1 (<1.2)
[2024-06-17 05:33] LABS: ABG Base Excess 9.1 mmol/L; ABG HCO3 36 mmol/L (21-25); ABG Oxygen Saturation 97.6 % (94-97); ABG PCO2 64 mmHg (35-45); ABG PH 7.36 (7.35-7.45); ABG PO2 99 mmHg (83-108); ABG TCO2 38 mmol/L (19-24)
[2024-06-17 05:33] LABS: HCT 26.1 % (39.0-53.0); HGB 8.3 gm/dL (13.0-17.5); Hypochromasia Slight; MCH 29.4 pg (25.0-35.0); MCHC 31.9 g/dL (31.0-37.0); MCV 92.3 fL (80.0-100.0); Mean Platelet Volume 11.7; Platelet Count 203 k/uL (150-450); RBC 2.82 m/uL (4.30-5.90)
[2024-06-17 05:36] LABS: Allen Test Performed? No
[2024-06-17 05:52] LABS: African American GFR (CKD) 38 (>60 ml/min/1.73 sqM); Anion Gap 4 mmol/L; Calcium 7.2 mg/dL (8.4-10.2); Carbon Dioxide 38 mmol/L (22-30); Chloride 111 mmol/L (98-107); Glucose 145 mg/dL (74-99); Non-African American GFR(CKD) 33 (>60 ml/min/1.73 sqM); Potassium 5.7 mmol/L (3.5-5.1); Sodium 153 mmol/L (137-145)
[2024-06-17 06:08] LABS: Blood Urea Nitrogen 143 mg/dL (9-20)
--- NOTE | 2024-06-17 06:09 | XR ---
EXAMINATION TYPE: XR chest 1V portable DATE OF EXAM: 06/17/2024 CLINICAL HISTORY: Difficulty breathing progress study. TECHNIQUE: Single AP portable semiupright view of the chest is obtained. COMPARISON: Chest x-ray from one day earlier and older studies. FINDINGS: Stable endotracheal and orogastric tubes. Stable left-sided subclavian central venous cath eter. Persistent bilateral multifocal increased opacities bilaterally. Cardiac silhouette size is stable an d within normal limits. Osseous structures are intact IMPRESSION: Persistent bilateral multifocal acute infiltrates and/or atelectasis. No significant samayoa ge from one day earlier. [facility], , 06/17/2024 6:07 AM
[2024-06-17 07:36] LABS: Reticulocyte % 1.1 % (0.5-2.0)
[2024-06-17 08:05] LABS: Appearance,Urine Cloudy (Clear); Bacteria,Urine Rare /hpf; Bilirubin,Urine Negative (Negative); Blood,Urine Moderate (Negative); Color,Urine Light Yellow; Glucose,Urine (UA) Negative (Negative); Ketones,Urine Negative (Negative); Leukocyte Esterase,Urine Negative (Negative); Mucus,Urine Rare /hpf; Nitrite,Urine Negative (Negative); PH, Urine 5.5 (5.0-8.0); Protein,Urine Trace (Negative); RBC,Urine 59 /hpf (0-5); Specific Gravity,Urine 1.018 (1.001-1.035); Squamous Epithelial Cell,Urine <1 /hpf (0-4); Uric Acid Crystals,Urine Occasional /hpf; Urobilinogen,Urine <2.0 mg/dL (<2.0); WBC,Urine 4 /hpf (0-5)
[2024-06-17 08:08] LABS: Albumin 2.6 g/dL (3.5-5.0); Bilirubin, Delta 0.3 mg/dL (0.0-0.2); Bilirubin,Unconjugated 0.3 mg/dL (0.0-1.1); Total Bilirubin 0.6 mg/dL (0.2-1.3); Total Protein 5.5 g/dL (6.3-8.2)
--- NOTE | 2024-06-17 08:40 | P.PN ---
Subjective Patient is seen in follow-up for acute kidney injury. Creatinine trending down. On low-dose Levophed. On IV Lasix. Nonoliguric. Receiving water flushes with tube feeds. Intubated. Vital signs are stable. On Levophed. General: Resting in bed. HEENT: Intubated. NG tube noted. LUNGS: Scattered rhonchi. HEART: Rate and Rhythm are regular. ABDOMEN: Soft. Obese. EXTREMITITES: 2+ edema. Objective - Vital Signs Vital signs: Vital Signs Temp 98.9 F 06/17/24 08:00 Pulse 111 H 06/17/24 08:24 Resp 34 H 06/17/24 08:00 BP 128/57 06/15/24 07:00 Pulse Ox 94 L 06/17/24 08:00 FiO2 50 06/17/24 08:07 Intake & Output 06/16/24 06/17/24 06/17/24 18:59 06:59 18:59 Intake Total 3971.836 1732.739 164.646 Output Total 1960 2620 175 Balance -656.759 -949.261 -10.354 Weight 124.7 kg Intake: IV 86 36 3 0.9 Nomal Saline Pressure 36 36 3 Bag cefTRIAXone 2 gm In 50 Sodium Chloride 0.9% 50 ml @ 100 mls/hr IVPB Q24HR [facility] Rx#:[id number] Intake, IV Titration 497.241 914.739 96.646 Amount Heparin Sod,Pork in 0.45% 250 NaCl 25,000 unit In 0.45 % NaCl 1 250ml.bag @ 8. 375 UNITS/KG/HR 10 mls/hr IV .Q24H [facility] Rx#: [id number] Norepinephrine 8 mg In 105.784 74.675 Sodium Chloride 0.9% 250 ml @ 0.03 MCG/KG/MIN 6. 589 mls/hr IV .Q24H [facility] Rx#:[id number] fentaNYL (PF). 1,000 mcg 200 192.88 In Sodium Chloride 0.9% 80 ml @ 0.5 MCG/KG/HR 6. 465 mls/hr IV .[id number] [facility] Rx#:[id number] propofoL 1,000 mg In 191.457 397.184 96.646 Empty Bag 1 bag @ 15 MCG/ KG/MIN 8.981 mls/hr IV . Q11H9M [facility] Rx#:[id number] Tube Feeding 420 420 35 Other 300 300 30 Output: Urine 1960 2620 175 Other: Voiding Method Indwelling Catheter Indwelling Catheter ABP, PAP, CO, CI - Last Documented Arterial Blood Pressure 108/46 - Labs CBC & Chem 7: 06/17/24 04:45 06/17/24 04:45 Labs: Abnormal Lab Results - Last 24 Hours (Table) 06/16/24 06/16/24 06/16/24 Range/Units 04:20 13:28 18:07 WBC (3.8-10.6) k/uL RBC (4.30-5.90) m/uL Hgb (13.0-17.5) gm/dL Hct (39.0-53.0) % RDW (11.5-15.5) % APTT 57.5 H (22.0-30.0) sec D-Dimer (<0.60) mg/L FEU ABG pCO2 (35-45) mmHg ABG HCO3 (21-25) mmol/L ABG Total CO2 (19-24) mmol/L ABG O2 Saturation (94-97) % Hemoglobin (13.0-17.5) gm/dL Sodium (137-145) mmol/L Potassium (3.5-5.1) mmol/L Chloride (98-107) mmol/L Carbon Dioxide (22-30) mmol/L BUN (9-20) mg/dL Creatinine (0.66-1.25) mg/dL Glucose (74-99) mg/dL POC Glucose (mg/dL) 250 H 196 H (70-110) mg/dL Calcium (8.4-10.2) mg/dL Delta Bilirubin (0.0-0.2) mg/dL Lactate Dehydrogenase (120-246) U/L Total Protein (6.3-8.2) g/dL Albumin (3.5-5.0) g/dL Urine Protein (Negative) Urine Blood (Negative) Urine RBC (0-5) /hpf Uric Acid Crystals (None) /hpf Urine Bacteria (None) /hpf Urine Mucus (None) /hpf 06/17/24 06/17/24 06/17/24 Range/Units 01:15 04:45 04:45 WBC 17.0 H (3.8-10.6) k/uL RBC 2.82 L (4.30-5.90) m/uL Hgb 8.3 L (13.0-17.5) gm/dL Hct 26.1 L (39.0-53.0) % RDW 16.0 H (11.5-15.5) % APTT 57.0 H (22.0-30.0) sec D-Dimer (<0.60) mg/L FEU ABG pCO2 (35-45) mmHg ABG HCO3 (21-25) mmol/L ABG Total CO2 (19-24) mmol/L ABG O2 Saturation (94-97) % Hemoglobin (13.0-17.5) gm/dL Sodium (137-145) mmol/L Potassium (3.5-5.1) mmol/L Chloride (98-107) mmol/L Carbon Dioxide (22-30) mmol/L BUN (9-20) mg/dL Creatinine (0.66-1.25) mg/dL Glucose (74-99) mg/dL POC Glucose (mg/dL) 176 H (70-110) mg/dL Calcium (8.4-10.2) mg/dL Delta Bilirubin (0.0-0.2) mg/dL Lactate Dehydrogenase (120-246) U/L Total Protein (6.3-8.2) g/dL Albumin (3.5-5.0) g/dL Urine Protein (Negative) Urine Blood (Negative) Urine RBC (0-5) /hpf Uric Acid Crystals (None) /hpf Urine Bacteria (None) /hpf Urine Mucus (None) /hpf 06/17/24 06/17/24 06/17/24 Range/Units 04:45 04:45 04:45 WBC (3.8-10.6) k/uL RBC (4.30-5.90) m/uL Hgb (13.0-17.5) gm/dL Hct (39.0-53.0) % RDW (11.5-15.5) % APTT (22.0-30.0) sec D-Dimer 2.25 H (<0.60) mg/L FEU ABG pCO2 (35-45) mmHg ABG HCO3 (21-25) mmol/L ABG Total CO2 (19-24) mmol/L ABG O2 Saturation (94-97) % Hemoglobin (13.0-17.5) gm/dL Sodium 153 H (137-145) mmol/L Potassium 5.7 H (3.5-5.1) mmol/L Chloride 111 H (98-107) mmol/L Carbon Dioxide 38 H (22-30) mmol/L BUN 143 H* (9-20) mg/dL Creatinine 2.03 H (0.66-1.25) mg/dL Glucose 145 H (74-99) mg/dL POC Glucose (mg/dL) (70-110) mg/dL Calcium 7.2 L (8.4-10.2) mg/dL Delta Bilirubin 0.3 H (0.0-0.2) mg/dL Lactate Dehydrogenase 320 H (120-246) U/L Total Protein 5.5 L (6.3-8.2) g/dL Albumin 2.6 L (3.5-5.0) g/dL Urine Protein (Negative) Urine Blood (Negative) Urine RBC (0-5) /hpf Uric Acid Crystals (None) /hpf Urine Bacteria (None) /hpf Urine Mucus (None) /hpf 06/17/24 06/17/24 06/17/24 Range/Units 04:49 05:27 07:39 WBC (3.8-10.6) k/uL RBC (4.30-5.90) m/uL Hgb (13.0-17.5) gm/dL Hct (39.0-53.0) % RDW (11.5-15.5) % APTT (22.0-30.0) sec D-Dimer (<0.60) mg/L FEU ABG pCO2 64 H (35-45) mmHg ABG HCO3 36 H (21-25) mmol/L ABG Total CO2 38 H (19-24) mmol/L ABG O2 Saturation 97.6 H (94-97) % Hemoglobin 8.3 L (13.0-17.5) gm/dL Sodium (137-145) mmol/L Potassium (3.5-5.1) mmol/L Chloride (98-107) mmol/L Carbon Dioxide (22-30) mmol/L BUN (9-20) mg/dL Creatinine (0.66-1.25) mg/dL Glucose (74-99) mg/dL POC Glucose (mg/dL) 161 H (70-110) mg/dL Calcium (8.4-10.2) mg/dL Delta Bilirubin (0.0-0.2) mg/dL Lactate Dehydrogenase (120-246) U/L Total Protein (6.3-8.2) g/dL Albumin (3.5-5.0) g/dL Urine Protein Trace H (Negative) Urine Blood Moderate H (Negative) Urine RBC 59 H (0-5) /hpf Uric Acid Crystals Occasional H (None) /hpf Urine Bacteria Rare H (None) /hpf Urine Mucus Rare H (None) /hpf Microbiology - Last 24 Hours (Table) 06/15/24 09:30 Blood Culture - Preliminary Blood 06/15/24 09:00 Urine Culture - Final Urine,Catheterized Assessment and Plan Plan: Assessment: 1. Acute kidney injury secondary to ATN secondary to septic shock. Creatinine peaked at 2.94 this admission and is 2.03 today. Nonoliguric. Baseline creatinine near 1. No hydronephrosis noted on kidney ultrasound. 2. Septic shock secondary to pneumonia. Blood culture positive for strep and staph. Sputum culture positive for strep and Natalie. Also influenza A positive. 3. Hyperkalemia secondary to acute kidney injury. 4. Hypernatremia from lack of oral water intake and free water diuresis. 5. Acute hypoxic respiratory failure. Intubated. Plan: Maintain IV Lasix. 10 units IV regular insulin with D50 if needed. 10 g Lokelma once now. Increase free water flushes with tube feeds to 400 cc every 4 hours. Repeat BMP this evening. Continue to monitor renal function and urine output. Wean FiO2 and Levophed.
[2024-06-17] MEDS: SODIUM ZIRCONIUM CYCLOSILICATE 10 GM PACKET PO ONE ×3 (09:15→23:08)
--- NOTE | 2024-06-17 11:19 | P.PN ---
Subjective Progress Note Date: 06/17/24 Pressor requirement decreased to 0.04. BUN is 140s, but creatinine improved again and UOP improved on lasix. Na improved, K stable with shifting agents. General: intubated, sedated HEENT: normocephalic, atraumatic, no tracheal deviation Respiratory: symmetric chest rise, no cyanosis, ventilator dependent CVS: perfusing all extremities, no distal gangrene, trace pitting edema GI: soft, ND : no SPT, no CVAT, black is present Neuro: sedated Hospital Course: Patient is a 69-year-old male with past medical history of A-fib status post ablation, hypertension. History obtained from chart review. Per ER note, EMS was called by patient's family for shortness of breath, family reported that multiple family members were sick in the house. They noted his SpO2 to be in 60s on placed him on CPAP with no improvement and he continued to breathe rapidly, spiking fever Initially, patient was placed on BiPAP for hypoxia, remained tachypneic and in respiratory distress despite BiPAP. Patient spent 1-1/2-hour on BiPAP with no improvement in his respiratory status, therefore, decision was made to intubate on 06/10, and was sedated, paralyzed, and transferred to ICU. Started on treatment for acute hypoxic respiratory failure secondary to bilateral pneumonia, influenza A pneumonia with cefepime, vancomycin; tamiflu, and solumedrol. Repeat chest x-ray showed diffuse pulmonary infiltrates and blood gases showed severe acidosis with pH of 7.05, patient was started on bicarb drip overnight, his blood pressure dropped requiring pressors. Hospital course complicated by oliguric renal failure. Nephrology consulted, kidney ultrasound and UA ordered, showed no obstruction or hydronephrosis. Blood cultures growing strep pneumo, antibiotics de-escalated to ceftriaxone 2 g daily. Cardiology con sulted for A-fib with RVR, patient started on amiodarone drip, then switched to oral amiodarone starting as well as heparin gtt. Assessment and Plan: Septic shock secondary with Acute Hypoxemic Respiratory Failure Community-acquired strep pneumo pneumonia, influenza A infection Strep pneumo bacteremia -Vent settings per ICU: currently being weaned down PEEP 18-->16, FiO2 70%-->60%-->50% -Continue ceftriaxone 2 g daily, antibiotics SOT 06/10 -Remains on solumedrol -Tamiflu has been discontinued 06/15 -Continue DuoNebs q4 hours -Patient's girlfriend updated on 06/16, all questions answered Steroid induced hyperglycemia Prediabetes -SSI, Accu-Cheks every 6 hours, added Levemir, increased to 25 units twice daily -added q6h lispro [facility] -qualifies for metformin on discharge if kidney function recovers, otherwise defer to outpatient follow up Acute Anemia -retic count is 1.1 (hypoproliferative) -FOBT ordered -LDH 320, haptoglobin pending -repeat UA shows moderate blood, 59 RBC, occasional uric acid crystals -D-dimer elevated, but Fibrinogen normal, PTT elevated, PT/INR normal Acute Kidney Injury secondary to ATN, oliguric Hyperkalemia Hypernatremia Metabolic Alkalosis -Nephrology following -Lasix at 80mg IV q12hr -BUN elevated, but Cr improving -Na improving, FWF - 100cc q4h Persistent A-fib status post ablation : -Continue heparin drip, -Amiodarone p.o. 400 twice daily, Lopressor 25 twice daily. -Cardiology following History of hypertension: GERD: Left forehead lipoma Obesity, Class III -Home medications reviewed and reconciled GI PPx: Stress ulcer prophylaxis with IV Protonix CODE STATUS: default full code DVT prophylaxis: Heparin drip Anticipated discharge date: tbd Anticipated discharge place: tbd Objective - Vital Signs Vital signs: Vital Signs Temp 98.9 F 06/17/24 08:00 Pulse 100 06/17/24 09:00 Resp 35 H 06/17/24 09:00 BP 128/57 06/15/24 07:00 Pulse Ox 95 06/17/24 09:00 FiO2 50 06/17/24 08:07 Intake & Output 06/16/24 06/17/24 06/17/24 18:59 06:59 18:59 Intake Total 1640.258 1608.739 672.646 Output Total 6020 2160 525 Balance -656.759 -949.261 147.646 Weight 124.7 kg 124.7 kg Intake: IV 86 36 6 0.9 Nomal Saline Pressure 36 36 6 Bag cefTRIAXone 2 gm In 50 Sodium Chloride 0.9% 50 ml @ 100 mls/hr IVPB Q24HR [facility] Rx#:[id number] Intake, IV Titration 497.241 914.739 96.646 Amount Heparin Sod,Pork in 0.45% 250 NaCl 25,000 unit In 0.45 % NaCl 1 250ml.bag @ 8. 375 UNITS/KG/HR 10 mls/hr IV .Q24H [facility] Rx#: [id number] Norepinephrine 8 mg In 105.784 74.675 Sodium Chloride 0.9% 250 ml @ 0.03 MCG/KG/MIN 6. 589 mls/hr IV .Q24H [facility] Rx#:[id number] fentaNYL (PF). 1,000 mcg 200 192.88 In Sodium Chloride 0.9% 80 ml @ 0.5 MCG/KG/HR 6. 465 mls/hr IV .[id number] [facility] Rx#:[id number] propofoL 1,000 mg In 191.457 397.184 96.646 Empty Bag 1 bag @ 15 MCG/ KG/MIN 8.981 mls/hr IV . Q11H9M [facility] Rx#:[id number] Tube Feeding 420 420 70 Other 300 300 500 Output: Urine 1960 2620 525 Other: Voiding Method Indwelling Catheter Indwelling Catheter Indwelling Catheter ABP, PAP, CO, CI - Last Documented Arterial Blood Pressure 103/46 - Labs CBC & Chem 7: 06/17/24 04:45 06/17/24 04:45 Labs: Abnormal Lab Results - Last 24 Hours (Table) 06/16/24 06/16/24 06/17/24 Range/Units 13:28 18:07 01:15 WBC (3.8-10.6) k/uL RBC (4.30-5.90) m/uL Hgb (13.0-17.5) gm/dL Hct (39.0-53.0) % RDW (11.5-15.5) % APTT (22.0-30.0) sec D-Dimer (<0.60) mg/L FEU ABG pCO2 (35-45) mmHg ABG HCO3 (21-25) mmol/L ABG Total CO2 (19-24) mmol/L ABG O2 Saturation (94-97) % Hemoglobin (13.0-17.5) gm/dL Sodium (137-145) mmol/L Potassium (3.5-5.1) mmol/L Chloride (98-107) mmol/L Carbon Dioxide (22-30) mmol/L BUN (9-20) mg/dL Creatinine (0.66-1.25) mg/dL Glucose (74-99) mg/dL POC Glucose (mg/dL) 250 H 196 H 176 H (70-110) mg/dL Calcium (8.4-10.2) mg/dL Delta Bilirubin (0.0-0.2) mg/dL Lactate Dehydrogenase (120-246) U/L Total Protein (6.3-8.2) g/dL Albumin (3.5-5.0) g/dL Urine Protein (Negative) Urine Blood (Negative) Urine RBC (0-5) /hpf Uric Acid Crystals (None) /hpf Urine Bacteria (None) /hpf Urine Mucus (None) /hpf 06/17/24 06/17/24 06/17/24 Range/Units 04:45 04:45 04:45 WBC 17.0 H (3.8-10.6) k/uL RBC 2.82 L (4.30-5.90) m/uL Hgb 8.3 L (13.0-17.5) gm/dL Hct 26.1 L (39.0-53.0) % RDW 16.0 H (11.5-15.5) % APTT 57.0 H (22.0-30.0) sec D-Dimer (<0.60) mg/L FEU ABG pCO2 (35-45) mmHg ABG HCO3 (21-25) mmol/L ABG Total CO2 (19-24) mmol/L ABG O2 Saturation (94-97) % Hemoglobin (13.0-17.5) gm/dL Sodium 153 H (137-145) mmol/L Potassium 5.7 H (3.5-5.1) mmol/L Chloride 111 H (98-107) mmol/L Carbon Dioxide 38 H (22-30) mmol/L BUN 143 H* (9-20) mg/dL Creatinine 2.03 H (0.66-1.25) mg/dL Glucose 145 H (74-99) mg/dL POC Glucose (mg/dL) (70-110) mg/dL Calcium 7.2 L (8.4-10.2) mg/dL Delta Bilirubin (0.0-0.2) mg/dL Lactate Dehydrogenase (120-246) U/L Total Protein (6.3-8.2) g/dL Albumin (3.5-5.0) g/dL Urine Protein (Negative) Urine Blood (Negative) Urine RBC (0-5) /hpf Uric Acid Crystals (None) /hpf Urine Bacteria (None) /hpf Urine Mucus (None) /hpf 06/17/24 06/17/24 06/17/24 Range/Units 04:45 04:45 04:49 WBC (3.8-10.6) k/uL RBC (4.30-5.90) m/uL Hgb (13.0-17.5) gm/dL Hct (39.0-53.0) % RDW (11.5-15.5) % APTT (22.0-30.0) sec D-Dimer 2.25 H (<0.60) mg/L FEU ABG pCO2 (35-45) mmHg ABG HCO3 (21-25) mmol/L ABG Total CO2 (19-24) mmol/L ABG O2 Saturation (94-97) % Hemoglobin (13.0-17.5) gm/dL Sodium (137-145) mmol/L Potassium (3.5-5.1) mmol/L Chloride (98-107) mmol/L Carbon Dioxide (22-30) mmol/L BUN (9-20) mg/dL Creatinine (0.66-1.25) mg/dL Glucose (74-99) mg/dL POC Glucose (mg/dL) 161 H (70-110) mg/dL Calcium (8.4-10.2) mg/dL Delta Bilirubin 0.3 H (0.0-0.2) mg/dL Lactate Dehydrogenase 320 H (120-246) U/L Total Protein 5.5 L (6.3-8.2) g/dL Albumin 2.6 L (3.5-5.0) g/dL Urine Protein (Negative) Urine Blood (Negative) Urine RBC (0-5) /hpf Uric Acid Crystals (None) /hpf Urine Bacteria (None) /hpf Urine Mucus (None) /hpf 06/17/24 06/17/24 Range/Units 05:27 07:39 WBC (3.8-10.6) k/uL RBC (4.30-5.90) m/uL Hgb (13.0-17.5) gm/dL Hct (39.0-53.0) % RDW (11.5-15.5) % APTT (22.0-30.0) sec D-Dimer (<0.60) mg/L FEU ABG pCO2 64 H (35-45) mmHg ABG HCO3 36 H (21-25) mmol/L ABG Total CO2 38 H (19-24) mmol/L ABG O2 Saturation 97.6 H (94-97) % Hemoglobin 8.3 L (13.0-17.5) gm/dL Sodium (137-145) mmol/L Potassium (3.5-5.1) mmol/L Chloride (98-107) mmol/L Carbon Dioxide (22-30) mmol/L BUN (9-20) mg/dL Creatinine (0.66-1.25) mg/dL Glucose (74-99) mg/dL POC Glucose (mg/dL) (70-110) mg/dL Calcium (8.4-10.2) mg/dL Delta Bilirubin (0.0-0.2) mg/dL Lactate Dehydrogenase (120-246) U/L Total Protein (6.3-8.2) g/dL Albumin (3.5-5.0) g/dL Urine Protein Trace H (Negative) Urine Blood Moderate H (Negative) Urine RBC 59 H (0-5) /hpf Uric Acid Crystals Occasional H (None) /hpf Urine Bacteria Rare H (None) /hpf Urine Mucus Rare H (None) /hpf Microbiology - Last 24 Hours (Table) 06/15/24 09:30 Blood Culture - Preliminary Blood 06/15/24 09:00 Urine Culture - Final Urine,Catheterized
[2024-06-17 11:36] LABS: Glucose,Whole Blood 138 mg/dL (70-110)
[2024-06-17] MEDS: INSULIN REGULAR 100 UNIT/ML VIAL (IM/SQ) SQ ONE (13:00)
[2024-06-17] MEDS: DEXTROSE 50% SYRINGE 50 ML IVP PRN (13:03)
--- NOTE | 2024-06-17 13:35 | P.PN ---
Subjective Progress Note Date: 06/17/24 Principal diagnosis: Acute hypoxic respiratory failure with sepsis secondary to streptococcal pneumonia 69-year-old male patient came into the emergency department for shortness of breath. According to the significant other, the patient was sick approximately a week ago and his condition has been progressively getting worse. The patient has been falling. He has been having difficulties in keeping himself up and moving around over the past 24 hours. Based on that, he came into the emergency department. His initial pulse ox was 60% and he was placed on a BiPAP and rapi dly following that, the patient was intubated and placed on the mechanical ventilator. Chest x-ray at time of admission showed extensive pneumonia with left upper lobe consolidation and air bronchograms and bibasilar pulmonary infiltrates. Patient tested positive for influenza A. Postintubation, the patient's blood gases showed a pH of 7.36 with a pCO2 of 43 and pO2 of 60. Nevertheless, by the time he arrived to the ICU, the patient was again hypoxic with a pulse ox of 78%. Necessary ventilator changes were done and currently the patient is in a rate of 26, tidal volume of 375, PEEP of 24 with an FiO2 of 100% and expiratory pause of 0.2 ms. The blood gas showed a pH of 7.16 with a pCO2 of 77 and pO2 of 66. Triple-lumen catheter was established in the left IJ. Arterial line was also established. The patient is currently on Tamiflu. He was also started on broad-spectrum antibiotics utilizing a combination of cefepime Zithromax and vancomycin. Started on systemic steroids. Hem odynamically stable. No hypotension. Cardiac rhythm is sinus. According to the significant other, he has history of paroxysmal atrial fibrillation and the patient has undergone ablation. Cardiac rhythm is sinus. He also has hypertension. He is a former smoker. Does not utilize any form of oxygen therapy or inhalers on outpatient basis. No history of bronchial asthma. No history of COPD. No history of any congestion or heart failure. The white cell count of 15.3 with hemoglobin 15.8 and a platelet count of 265. Normal coagulation profile. BUN is 63 with a creatinine 1.42 and a sodium levels at 140 with a potassium level of 4.5. Initial lactic acid level was at 3.8 and dropped down to 2.0. The patient is currently on normal saline at rate of 100 cc an hour. Furthermore, he is sedated with propofol and paralytics with Bumex. In the intensive care unit. 06/14/2024, the patient is being seen for a follow-up. Remains intubated on the mechanical ventilator. This morning, the patient is off paralytics and the patient remains on propofol running at 65 mcg/kg/min. Remains on mechanical ventilator assist-control mode rate of 34, tidal volume of 450, FiO2 of 70% with a PEEP of 18. Blood gas showed a pH of 7.28 with a pCO2 of 59 and pO2 of 89. The patient remains hypotensive and remains on norepinephrine. The patient will be taken off vasopressin. Norepinephrine is running at 0.15 mcg/kg/min. Chest x-ray still showing stable bilateral pulmonary consolidation more extensive in the right lower lobe and the left upper lobe. Remains atrial fibrillation. Remains on IV Rocephin. Continues to receive enteral feeding for nutritional support. Remains on IV heparin regarding his ongoing atrial fibrillation. The WBC count is at 18, still elevated with a hemoglobin 10.3 and a platelet count of 193. Sodium is at 141, potassium is 5.1, bicarb is 27, BUN is 124 and creatinine is at 2.76. Despite ongoing renal failure, the patient is producing urine output. The patient was given Lasix and he continues to receive Lasix 80 mg on a daily basis. Rest of the medications remain unchanged. Completing course of Tamiflu. Remains on IV Rocephin. Remains on a combination of metoprolol 25 mg twice daily and amiodarone 4 mg p.o. twice daily for rate control. 06/15/2024, the patient is being seen for a follow-up. Remains intubated on mechanical ventilator. Remains sedated on propofol. Off paralytics and slightly asynchronous mechanical ventilator. May need fentanyl. Will continue monitoring his progress. Remains intubated on mechanical ventilator assist- control mode at rate of 36, tidal volume of 450, FiO2 of 70% with a PEEP of 18. Blood gas showed pH of 7.28 with a pCO2 of 64 pO2 of 106. Peak airway pressure is 36. Remains on norepinephrine running at 0.2 mcg/kg/min. Remains on vital HP at rate of 35 cc an hour. Follow-up chest x-ray done today shows improvement in the left upper lobe and right lower lobe pulmonary infiltrates. White cell count is at 19 with a hemoglobin 9.6 and a platelet count of 217. Sodium is at 146, potassium is at 5.7, chloride is 108, BUN is 140 with a creatinine of 2.5. Blood sugar is 200. Calcium level is at 7.4. Did have a episode of fever with a Tmax of 101.3. Remains on Lasix 80 mg IV every 24 hours. Fluid balance is +1.1 L over the past 24 hours and the patient has produced more than 2 L of urine output for yesterday. On 06/16/2024, patient is being seen for a follow-up. The patient remains on mechanical ventilator, sedated with propofol 65 mcg/kg/min and fentanyl at 1 mcg/kg/h. Chest x-ray findings are essentially stable and shows ongoing improvement in bilateral pulmonary infiltrates. Nevertheless, the patient remains intubated on mechanical ventilator. On today's evaluation, he is on assist-control at rate of 34, tidal volume of 450, FiO2 of 50% with a PEEP of 16. Blood gas showed a pH of 7.34 with pCO2 of 64 and pO2 of 79. The patient hemodynamically remains in atrial fibrillation, controlled rate. Vasopressin has been discontinued and norepinephrine has been weaned down to 0.07 mcg/kg/min. Remains on IV Lasix 80 mg every 12 hours. Fluid balance is -1.8 L over the past 24 hours. Remains on IV heparin. Remains on Lantus insulin 25 units daily and vital high-protein at rate of 35 cc an hour. Blood work from today shows a white cell count of 18, hemoglobin 9.1 and platelet count of 206. Sodium is at 151, K is at 5.8, BUN is at 143 with a creatinine of 2.3. Blood sugars at 195. Magnesium level is at 3.8. Calcium level is at 7.3. Patient was seen today on 06/17/2024, remains in the ICU, intubated and mechanically ventilated. Patient is still requiring ventilatory support still requiring hemodynamic support/norepinephrine and he remains quite ill, not ready for any trials of extubation. Patient is on assist-control rate of 34 tidal volume 450 FiO2 50% and PEEP of 16 ABG showed a pO2 of 99 pCO2 64 pH of 7.36. Patient is requiring norepinephrine at 0.03 mcg/kg/min propofol 65 mcg/kg/min Fentanyl 1 mcg/kg/h. Patient is receiving vital HP 35/35. Antibiotics lara he remains on Rocephin patient still on diuretics, seen by nephrology today, and he was placed on Lokelma and insulin was added for hyperkalemia. Patient was initially intubated on 06/10 and today is his seventh day of ventilatory support. Based on physical examination and based on his chest x-ray findings, he remains quite ill and he is not ready for any trials of weaning. Chest x-ray remains quite abnormal and on physical examination he has crackles rhonchi and wheezes noted bilaterally. Patient continues to have leukocytosis with WBC count of 17 hemoglobin is 8.3 D-dimer is 2.25. Sodium is 153 potassium 5.7 patient is on Lokelma, nephrology increased his free water via orogastric tube. Renal profile is abnormal with a BUN of 143 creatinine 2.03 liver enzymes are basically unremarkable LDH however is 320. Chest x-ray showed persistent bilateral multifocal infiltrates and/or atelectasis. But I believe this is mostly infiltrates. Objective - Vital Signs Vital signs: Vital Signs Temp 98.9 F 06/17/24 11:00 Pulse 96 06/17/24 12:15 Resp 24 06/17/24 12:15 BP 128/57 06/15/24 07:00 Pulse Ox 97 06/17/24 12:15 FiO2 50 06/17/24 12:33 Intake & Output 06/16/24 06/17/24 06/17/24 18:59 06:59 18:59 Intake Total 6836.075 1186.739 848.646 Output Total 1960 2620 1110 Balance -656.759 -949.261 -261.354 Weight 124.7 kg 124.7 kg Intake: IV 86 36 12 0.9 Nomal Saline Pressure 36 36 12 Bag cefTRIAXone 2 gm In 50 Sodium Chloride 0.9% 50 ml @ 100 mls/hr IVPB Q24HR [facility] Rx#:[id number] Intake, IV Titration 497.241 914.739 196.646 Amount Heparin Sod,Pork in 0.45% 250 NaCl 25,000 unit In 0.45 % NaCl 1 250ml.bag @ 8. 375 UNITS/KG/HR 10 mls/hr IV .Q24H JACQUES Rx#: [id number] Norepinephrine 8 mg In 105.784 74.675 Sodium Chloride 0.9% 250 ml @ 0.03 MCG/KG/MIN 6. 589 mls/hr IV .Q24H [facility] Rx#:[id number] fentaNYL (PF). 1,000 mcg 200 192.88 In Sodium Chloride 0.9% 80 ml @ 0.5 MCG/KG/HR 6. 465 mls/hr IV .[id number] [facility] Rx#:[id number] propofoL 1,000 mg In 191.457 397.184 196.646 Empty Bag 1 bag @ 15 MCG/ KG/MIN 8.981 mls/hr IV . [id number] J[facility]QU[facility] Rx#:[id number] Tube Feeding 420 420 140 Other 300 300 500 Output: Urine 1960 2620 1110 Other: Voiding Method Indwelling Catheter Indwelling Catheter Indwelling Catheter ABP, PAP, CO, CI - Last Documented Arterial Blood Pressure 110/48 - Exam General: Revealed 69-year-old white male obese intubated and mechanically ventilated Derm: No rashes Head: Atraumatic normocephalic Eyes: PERRLA, EOMI, nonicteric, periorbital swelling is noted Mouth: Normal mucous membranes, endotracheal tube and orogastric tube are intact. Cardiovascular: Distant S1-S2, no S3 gallop, no murmur Lungs: Crackles rhonchi and wheezes noted bilaterally Abdominal: Obese soft nontender no rebound no guarding Ext: 3+ bipedal edema Neuro: Could not assess, patient is intubated and sedated Psych: Could not assess patient is intubated and sedated [ - Labs CBC & Chem 7: 06/17/24 04:45 06/17/24 04:45 Labs: Abnormal Lab Results - Last 24 Hours (Table) 06/16/24 06/16/24 06/17/24 Range/Units 13:28 18:07 01:15 WBC (3.8-10.6) k/uL RBC (4.30-5.90) m/uL Hgb (13.0-17.5) gm/dL Hct (39.0-53.0) % RDW (11.5-15.5) % Haptoglobin (31.2-198.0) mg/dL APTT (22.0-30.0) sec D-Dimer (<0.60) mg/L FEU ABG pCO2 (35-45) mmHg ABG HCO3 (21-25) mmol/L ABG Total CO2 (19-24) mmol/L ABG O2 Saturation (94-97) % Hemoglobin (13.0-17.5) gm/dL Sodium (137-145) mmol/L Potassium (3.5-5.1) mmol/L Chloride (98-107) mmol/L Carbon Dioxide (22-30) mmol/L BUN (9-20) mg/dL Creatinine (0.66-1.25) mg/dL Glucose (74-99) mg/dL POC Glucose (mg/dL) 250 H 196 H 176 H (70-110) mg/dL Calcium (8.4-10.2) mg/dL Delta Bilirubin (0.0-0.2) mg/dL Lactate Dehydrogenase (120-246) U/L Total Protein (6.3-8.2) g/dL Albumin (3.5-5.0) g/dL Urine Protein (Negative) Urine Blood (Negative) Urine RBC (0-5) /hpf Uric Acid Crystals (None) /hpf Urine Bacteria (None) /hpf Urine Mucus (None) /hpf 06/17/24 06/17/24 06/17/24 Range/Units 04:45 04:45 04:45 WBC 17.0 H (3.8-10.6) k/uL RBC 2.82 L (4.30-5.90) m/uL Hgb 8.3 L (13.0-17.5) gm/dL Hct 26.1 L (39.0-53.0) % RDW 16.0 H (11.5-15.5) % Haptoglobin (31.2-198.0) mg/dL APTT 57.0 H (22.0-30.0) sec D-Dimer (<0.60) mg/L FEU ABG pCO2 (35-45) mmHg ABG HCO3 (21-25) mmol/L ABG Total CO2 (19-24) mmol/L ABG O2 Saturation (94-97) % Hemoglobin (13.0-17.5) gm/dL Sodium 153 H (137-145) mmol/L Potassium 5.7 H (3.5-5.1) mmol/L Chloride 111 H (98-107) mmol/L Carbon Dioxide 38 H (22-30) mmol/L BUN 143 H* (9-20) mg/dL Creatinine 2.03 H (0.66-1.25) mg/dL Glucose 145 H (74-99) mg/dL POC Glucose (mg/dL) (70-110) mg/dL Calcium 7.2 L (8.4-10.2) mg/dL Delta Bilirubin (0.0-0.2) mg/dL Lactate Dehydrogenase (120-246) U/L Total Protein (6.3-8.2) g/dL Albumin (3.5-5.0) g/dL Urine Protein (Negative) Urine Blood (Negative) Urine RBC (0-5) /hpf Uric Acid Crystals (None) /hpf Urine Bacteria (None) /hpf Urine Mucus (None) /hpf 06/17/24 06/17/24 06/17/24 Range/Units 04:45 04:45 04:45 WBC (3.8-10.6) k/uL RBC (4.30-5.90) m/uL Hgb (13.0-17.5) gm/dL Hct (39.0-53.0) % RDW (11.5-15.5) % Haptoglobin 400.0 H (31.2-198.0) mg/dL APTT (22.0-30.0) sec D-Dimer 2.25 H (<0.60) mg/L FEU ABG pCO2 (35-45) mmHg ABG HCO3 (21-25) mmol/L ABG Total CO2 (19-24) mmol/L ABG O2 Saturation (94-97) % Hemoglobin (13.0-17.5) gm/dL Sodium (137-145) mmol/L Potassium (3.5-5.1) mmol/L Chloride (98-107) mmol/L Carbon Dioxide (22-30) mmol/L BUN (9-20) mg/dL Creatinine (0.66-1.25) mg/dL Glucose (74-99) mg/dL POC Glucose (mg/dL) (70-110) mg/dL Calcium (8.4-10.2) mg/dL Delta Bilirubin 0.3 H (0.0-0.2) mg/dL Lactate Dehydrogenase 320 H (120-246) U/L Total Protein 5.5 L (6.3-8.2) g/dL Albumin 2.6 L (3.5-5.0) g/dL Urine Protein (Negative) Urine Blood (Negative) Urine RBC (0-5) /hpf Uric Acid Crystals (None) /hpf Urine Bacteria (None) /hpf Urine Mucus (None) /hpf 06/17/24 06/17/24 06/17/24 Range/Units 04:49 05:27 07:39 WBC (3.8-10.6) k/uL RBC (4.30-5.90) m/uL Hgb (13.0-17.5) gm/dL Hct (39.0-53.0) % RDW (11.5-15.5) % Haptoglobin (31.2-198.0) mg/dL APTT (22.0-30.0) sec D-Dimer (<0.60) mg/L FEU ABG pCO2 64 H (35-45) mmHg ABG HCO3 36 H (21-25) mmol/L ABG Total CO2 38 H (19-24) mmol/L ABG O2 Saturation 97.6 H (94-97) % Hemoglobin 8.3 L (13.0-17.5) gm/dL Sodium (137-145) mmol/L Potassium (3.5-5.1) mmol/L Chloride (98-107) mmol/L Carbon Dioxide (22-30) mmol/L BUN (9-20) mg/dL Creatinine (0.66-1.25) mg/dL Glucose (74-99) mg/dL POC Glucose (mg/dL) 161 H (70-110) mg/dL Calcium (8.4-10.2) mg/dL Delta Bilirubin (0.0-0.2) mg/dL Lactate Dehydrogenase (120-246) U/L Total Protein (6.3-8.2) g/dL Albumin (3.5-5.0) g/dL Urine Protein Trace H (Negative) Urine Blood Moderate H (Negative) Urine RBC 59 H (0-5) /hpf Uric Acid Crystals Occasional H (None) /hpf Urine Bacteria Rare H (None) /hpf Urine Mucus Rare H (None) /hpf 06/17/24 Range/Units 11:34 WBC (3.8-10.6) k/uL RBC (4.30-5.90) m/uL Hgb (13.0-17.5) gm/dL Hct (39.0-53.0) % RDW (11.5-15.5) % Haptoglobin (31.2-198.0) mg/dL APTT (22.0-30.0) sec D-Dimer (<0.60) mg/L FEU ABG pCO2 (35-45) mmHg ABG HCO3 (21-25) mmol/L ABG Total CO2 (19-24) mmol/L ABG O2 Saturation (94-97) % Hemoglobin (13.0-17.5) gm/dL Sodium (137-145) mmol/L Potassium (3.5-5.1) mmol/L Chloride (98-107) mmol/L Carbon Dioxide (22-30) mmol/L BUN (9-20) mg/dL Creatinine (0.66-1.25) mg/dL Glucose (74-99) mg/dL POC Glucose (mg/dL) 138 H (70-110) mg/dL Calcium (8.4-10.2) mg/dL Delta Bilirubin (0.0-0.2) mg/dL Lactate Dehydrogenase (120-246) U/L Total Protein (6.3-8.2) g/dL Albumin (3.5-5.0) g/dL Urine Protein (Negative) Urine Blood (Negative) Urine RBC (0-5) /hpf Uric Acid Crystals (None) /hpf Urine Bacteria (None) /hpf Urine Mucus (None) /hpf Microbiology - Last 24 Hours (Table) 06/15/24 09:30 Blood Culture - Preliminary Blood 06/15/24 09:00 Urine Culture - Final Urine,Catheterized Assessment and Plan Assessment: Impression: Acute hypoxic respiratory failure secondary to bilateral pneumococcal pneumonia and septic shock. Remains intubated and he remains on pressors Bilateral pneumococcal pneumonia following an acute influenza A infection. Septic shock, second pneumococcal pneumonia with bacteremia. Acute kidney injury,, likely acute tubular necrosis being followed by nephrology Acute leukocytosis, white cell count is still elevated, secondary to above mostly sepsis and septic shock Atrial fibrillation with rapid ventricular response, currently on amiodarone . The heart rate is controlled rate. Remains on IV heparin. History of hypertension Hypernatremia secondary to free water deficit Recommendation: Continue ventilatory support Continue hemodynamic support Continue free water to correct his hyperal natremia Continue Lasix Patient is not ready for any weaning based on his clinical findings and based on his chest x-ray Continue Lokelma and continue insulin as per nephrology Continue to monitor renal profile and electrolytes Patient completed a course of Tamiflu Continue IV Solu-Medrol Continue Rocephin Continue enteral feeding for nutritional support Continue GI and DVT prophylaxis patient is on Lovenox and on Protonix Continue insulin Continue oral amiodarone 400 mg p.o. twice a day Continue IV heparin, as per cardiology Patient remains critically ill Critical care time is over 32 minutes. Time with Patient: Greater than 30
[2024-06-17 13:57] LABS: Glucose,Whole Blood 178 mg/dL (70-110)
[2024-06-17 14:35] LABS: African American GFR (CKD) 41 (>60 ml/min/1.73 sqM); Anion Gap 3 mmol/L; Calcium 7.5 mg/dL (8.4-10.2); Carbon Dioxide 38 mmol/L (22-30); Chloride 111 mmol/L (98-107); Glucose 171 mg/dL (74-99); Non-African American GFR(CKD) 35 (>60 ml/min/1.73 sqM); Potassium 5.9 mmol/L (3.5-5.1); Sodium 152 mmol/L (137-145)
[2024-06-17 14:52] LABS: Blood Urea Nitrogen 139 mg/dL (9-20)
[2024-06-17] MEDS: INSULIN REGULAR 100 UNIT/ML VIAL (IV) IV ONE (15:48)
--- NOTE | 2024-06-17 16:44 | P.PN ---
Subjective The patient is a 69-year-old male who presented with symptoms of progressive dyspnea, diagnosed with pneumonia and influenza A, requiring mechanical ventilation. Cardiology consultation was requested because of atrial fibrillation. The patient is intubated and sedated. He has a history of atrial fibrillation, status post ablation in January 2024. He was in sinus mechanism on presentation and back in atrial fibrillation at this time with episode of rapid ventricle response. He is on vasopressors. He had an echocardiogram that showed a preserved systolic function, the study was technically difficult. The patient has been anticoagulated as an outpatient. Her chest x-ray shows severe infiltration bilaterally consistent with a pneumonia. Presentation he had evidence of acute renal injury and hypotension related to sepsis. He has been initiated on amiodarone and he is on vasopressin in addition to norepinephrine June 13: The patient remains intubated and sedated. He had episodes of paroxysmal atrial fibrillation. He is in sinus mechanism at this time. He continues to be on norepinephrine. His urine output is stable. His chest x-ray shows bilateral infiltrate consistent with his pneumonia. There is no evidence of ventricular ectopic activity.There is significant worsening of his renal function with a BUN up to 101 with a creatinine of 2.94. Tolerating tube feeding June 14: The patient remains intubated and sedated. He is in atrial fibrillation with controlled ventricular response. He is on the lower dose of norepinephrine. His urine output has been stable and he is tolerating tube feeding. He had no evidence of ventricular ectopic activity. He continues to have significant infiltrate on his chest x-ray. June 15: The patient remains intubated and sedated, he is on the lower PEEP. He jeff nues to be in atrial fibrillation with controlled ventricular response. His urinary output has improved. There is no evidence of ventricular ectopic activity. His chest x-ray continues to show evidence of infiltrate bilaterally. Continues to be on IV heparin. He has worsening of his renal functions. June 16: The patient remains intubated and sedated on PEEP of 16. His dose of Levophed has been decreased. He continues to be on IV diuretics with good urine output. He is in atrial fibrillation with controlled ventricular response but no evidence of ventricular ectopic activity. His chest x-ray continues to show bilateral infiltrate. 06/17 patient seen and examined. Patient remains intubated and sedated. Per nursing has been able to be weaned somewhat on the norepinephrine. Still requiring 50% FiO2 with PEEP of 16. He is getting free water flushes through his OG tube. Good urine output with approximately 100 mL per hour. Creatinine mildly improving to 1.9 and BUN relatively stable. He remains in A. fib with heart rates 80s to 100s. hemoglobin downtrending to 8.3. Per nursing some bruising around his left subclavian central line. Medications: IV heparin, Rocephin, insulin, methylprednisolone, metoprolol tartrate 25 mg twice a day, Tamiflu, vancomycin, amiodarone 400 mg twice a day, Lasix 80 mg IV twice daily, amiodarone 400 mg twice a day PHYSICAL EXAMINATION: Blood pressure 127/50 heart rate 95, intubated and sedated LUNGS: Clear to auscultation anteriorly HEART: Irregular rate and rhythm, S1, S2. No S3. Systolic ejection murmur ABDOMEN: Soft, positive bowel sounds, no organomegaly EXTREMETIES: +1 edema LAB: Hemoglobin 9.1, WBC 18.6, pH 7.34, pCO2 64 with a pO2 of 79. BUN 143 with a creatinine of 2.32. IMPRESSION: 1. Acute respiratory failure with bilateral pneumonia and influenza A requiring mechanical ventilation 2. Paroxysmal atrial fibrillation status post ablation in 2023, back in atrial fibrillation 3. Acute renal injury related to the sepsis and hypotension,, good urine output 4. Leukocytosis 5. Anemia PLAN: If continued anemia and/or significant bleeding from his central line consider holding the heparin until more stable. Continue heparin for now however. Monitor kidney function. if worsening status may consider CVP. Continue amiodarone 400mg bid for now with increased HR's. Objective - Vital Signs Vital signs: Vital Signs Temp 98.1 F 06/17/24 16:00 Pulse 109 H 06/17/24 16:00 Resp 34 H 06/17/24 16:00 BP 146/74 06/17/24 15:15 Pulse Ox 95 06/17/24 16:00 FiO2 50 06/17/24 16:00 Intake & Output 06/16/24 06/17/24 06/17/24 18:59 06:59 18:59 Intake Total 4332.743 5957.739 2493.035 Output Total 5278 7210 1910 Balance -656.759 -949.261 583.035 Weight 124.7 kg 124.7 kg Intake: IV 86 36 24 0.9 Nomal Saline Pressure 36 36 24 Bag cefTRIAXone 2 gm In 50 Sodium Chloride 0.9% 50 ml @ 100 mls/hr IVPB Q24HR [facility] Rx#:[id number] Intake, IV Titration 497.241 914.739 504.035 Amount Heparin Sod,Pork in 0.45% 250 NaCl 25,000 unit In 0.45 % NaCl 1 250ml.bag @ 8. 375 UNITS/KG/HR 10 mls/hr IV .Q24H [facility] Rx#: [id number] Norepinephrine 8 mg In 105.784 74.675 122.697 Sodium Chloride 0.9% 250 ml @ 0.03 MCG/KG/MIN 6. 589 mls/hr IV .Q24H [facility] Rx#:[id number] fentaNYL (PF). 1,000 mcg 200 192.88 84.692 In Sodium Chloride 0.9% 80 ml @ 0.5 MCG/KG/HR 6. 465 mls/hr IV .[id number] [facility] Rx#:[id number] propofoL 1,000 mg In 191.457 397.184 296.646 Empty Bag 1 bag @ 15 MCG/ KG/MIN 8.981 mls/hr IV . Q11H9M [facility] Rx#:[id number] Oral 85 Tube Feeding 420 420 280 Other 959 473 3029 Output: Urine 1960 2620 1910 Other: Voiding Method Indwelling Catheter Indwelling Catheter Indwelling Catheter ABP, PAP, CO, CI - Last Documented Arterial Blood Pressure 105/44 - Labs CBC & Chem 7: 06/17/24 04:45 06/17/24 14:00 Labs: Abnormal Lab Results - Last 24 Hours (Table) 06/16/24 06/17/24 06/17/24 Range/Units 18:07 01:15 04:45 WBC 17.0 H (3.8-10.6) k/uL RBC 2.82 L (4.30-5.90) m/uL Hgb 8.3 L (13.0-17.5) gm/dL Hct 26.1 L (39.0-53.0) % RDW 16.0 H (11.5-15.5) % Haptoglobin (31.2-198.0) mg/dL APTT (22.0-30.0) sec D-Dimer (<0.60) mg/L FEU ABG pCO2 (35-45) mmHg ABG HCO3 (21-25) mmol/L ABG Total CO2 (19-24) mmol/L ABG O2 Saturation (94-97) % Hemoglobin (13.0-17.5) gm/dL Sodium (137-145) mmol/L Potassium (3.5-5.1) mmol/L Chloride (98-107) mmol/L Carbon Dioxide (22-30) mmol/L BUN (9-20) mg/dL Creatinine (0.66-1.25) mg/dL Glucose (74-99) mg/dL POC Glucose (mg/dL) 196 H 176 H (70-110) mg/dL Calcium (8.4-10.2) mg/dL Delta Bilirubin (0.0-0.2) mg/dL Lactate Dehydrogenase (120-246) U/L Total Protein (6.3-8.2) g/dL Albumin (3.5-5.0) g/dL Urine Protein (Negative) Urine Blood (Negative) Urine RBC (0-5) /hpf Uric Acid Crystals (None) /hpf Urine Bacteria (None) /hpf Urine Mucus (None) /hpf 06/17/24 06/17/24 06/17/24 Range/Units 04:45 04:45 04:45 WBC (3.8-10.6) k/uL RBC (4.30-5.90) m/uL Hgb (13.0-17.5) gm/dL Hct (39.0-53.0) % RDW (11.5-15.5) % Haptoglobin (31.2-198.0) mg/dL APTT 57.0 H (22.0-30.0) sec D-Dimer (<0.60) mg/L FEU ABG pCO2 (35-45) mmHg ABG HCO3 (21-25) mmol/L ABG Total CO2 (19-24) mmol/L ABG O2 Saturation (94-97) % Hemoglobin (13.0-17.5) gm/dL Sodium 153 H (137-145) mmol/L Potassium 5.7 H (3.5-5.1) mmol/L Chloride 111 H (98-107) mmol/L Carbon Dioxide 38 H (22-30) mmol/L BUN 143 H* (9-20) mg/dL Creatinine 2.03 H (0.66-1.25) mg/dL Glucose 145 H (74-99) mg/dL POC Glucose (mg/dL) (70-110) mg/dL Calcium 7.2 L (8.4-10.2) mg/dL Delta Bilirubin 0.3 H (0.0-0.2) mg/dL Lactate Dehydrogenase 320 H (120-246) U/L Total Protein 5.5 L (6.3-8.2) g/dL Albumin 2.6 L (3.5-5.0) g/dL Urine Protein (Negative) Urine Blood (Negative) Urine RBC (0-5) /hpf Uric Acid Crystals (None) /hpf Urine Bacteria (None) /hpf Urine Mucus (None) /hpf 06/17/24 06/17/24 06/17/24 Range/Units 04:45 04:45 04:49 WBC (3.8-10.6) k/uL RBC (4.30-5.90) m/uL Hgb (13.0-17.5) gm/dL Hct (39.0-53.0) % RDW (11.5-15.5) % Haptoglobin 400.0 H (31.2-198.0) mg/dL APTT (22.0-30.0) sec D-Dimer 2.25 H (<0.60) mg/L FEU ABG pCO2 (35-45) mmHg ABG HCO3 (21-25) mmol/L ABG Total CO2 (19-24) mmol/L ABG O2 Saturation (94-97) % Hemoglobin (13.0-17.5) gm/dL Sodium (137-145) mmol/L Potassium (3.5-5.1) mmol/L Chloride (98-107) mmol/L Carbon Dioxide (22-30) mmol/L BUN (9-20) mg/dL Creatinine (0.66-1.25) mg/dL Glucose (74-99) mg/dL POC Glucose (mg/dL) 161 H (70-110) mg/dL Calcium (8.4-10.2) mg/dL Delta Bilirubin (0.0-0.2) mg/dL Lactate Dehydrogenase (120-246) U/L Total Protein (6.3-8.2) g/dL Albumin (3.5-5.0) g/dL Urine Protein (Negative) Urine Blood (Negative) Urine RBC (0-5) /hpf Uric Acid Crystals (None) /hpf Urine Bacteria (None) /hpf Urine Mucus (None) /hpf 06/17/24 06/17/24 06/17/24 Range/Units 05:27 07:39 11:34 WBC (3.8-10.6) k/uL RBC (4.30-5.90) m/uL Hgb (13.0-17.5) gm/dL Hct (39.0-53.0) % RDW (11.5-15.5) % Haptoglobin (31.2-198.0) mg/dL APTT (22.0-30.0) sec D-Dimer (<0.60) mg/L FEU ABG pCO2 64 H (35-45) mmHg ABG HCO3 36 H (21-25) mmol/L ABG Total CO2 38 H (19-24) mmol/L ABG O2 Saturation 97.6 H (94-97) % Hemoglobin 8.3 L (13.0-17.5) gm/dL Sodium (137-145) mmol/L Potassium (3.5-5.1) mmol/L Chloride (98-107) mmol/L Carbon Dioxide (22-30) mmol/L BUN (9-20) mg/dL Creatinine (0.66-1.25) mg/dL Glucose (74-99) mg/dL POC Glucose (mg/dL) 138 H (70-110) mg/dL Calcium (8.4-10.2) mg/dL Delta Bilirubin (0.0-0.2) mg/dL Lactate Dehydrogenase (120-246) U/L Total Protein (6.3-8.2) g/dL Albumin (3.5-5.0) g/dL Urine Protein Trace H (Negative) Urine Blood Moderate H (Negative) Urine RBC 59 H (0-5) /hpf Uric Acid Crystals Occasional H (None) /hpf Urine Bacteria Rare H (None) /hpf Urine Mucus Rare H (None) /hpf 06/17/24 06/17/24 Range/Units 13:55 14:00 WBC (3.8-10.6) k/uL RBC (4.30-5.90) m/uL Hgb (13.0-17.5) gm/dL Hct (39.0-53.0) % RDW (11.5-15.5) % Haptoglobin (31.2-198.0) mg/dL APTT (22.0-30.0) sec D-Dimer (<0.60) mg/L FEU ABG pCO2 (35-45) mmHg ABG HCO3 (21-25) mmol/L ABG Total CO2 (19-24) mmol/L ABG O2 Saturation (94-97) % Hemoglobin (13.0-17.5) gm/dL Sodium 152 H (137-145) mmol/L Potassium 5.9 H (3.5-5.1) mmol/L Chloride 111 H (98-107) mmol/L Carbon Dioxide 38 H (22-30) mmol/L BUN 139 H* (9-20) mg/dL Creatinine 1.90 H (0.66-1.25) mg/dL Glucose 171 H (74-99) mg/dL POC Glucose (mg/dL) 178 H (70-110) mg/dL Calcium 7.5 L (8.4-10.2) mg/dL Delta Bilirubin (0.0-0.2) mg/dL Lactate Dehydrogenase (120-246) U/L Total Protein (6.3-8.2) g/dL Albumin (3.5-5.0) g/dL Urine Protein (Negative) Urine Blood (Negative) Urine RBC (0-5) /hpf Uric Acid Crystals (None) /hpf Urine Bacteria (None) /hpf Urine Mucus (None) /hpf Microbiology - Last 24 Hours (Table) 06/15/24 09:30 Blood Culture - Preliminary Blood 06/15/24 09:00 Urine Culture - Final Urine,Catheterized
[2024-06-17 16:46] LABS: Glucose,Whole Blood 170 mg/dL (70-110)
[2024-06-17 17:42] LABS: Glucose,Whole Blood 138 mg/dL (70-110)
[2024-06-17 22:15] LABS: African American GFR (CKD) 42 (>60 ml/min/1.73 sqM); Calcium 7.9 mg/dL (8.4-10.2); Chloride 109 mmol/L (98-107); Glucose 155 mg/dL (74-99); Non-African American GFR(CKD) 36 (>60 ml/min/1.73 sqM); Potassium 5.6 mmol/L (3.5-5.1); Sodium 153 mmol/L (137-145)
[2024-06-17 22:22] LABS: Anion Gap 8 mmol/L; Carbon Dioxide 36 mmol/L (22-30)
[2024-06-17 22:25] LABS: Blood Urea Nitrogen 132 mg/dL (9-20)
[2024-06-17] MEDS: DEXTROSE 5% IN WATER 1,000 ML IV SCH (23:08)
[2024-06-17 23:24] LABS: Glucose,Whole Blood 183 mg/dL (70-110)
[2024-06-18] MEDS: ACETAMINOPHEN TAB 325 MG TAB PO PRN (00:26)
[2024-06-18 04:28] LABS: HCT 26.8 % (39.0-53.0); HGB 8.2 gm/dL (13.0-17.5); Hypochromasia Marked; MCH 28.7 pg (25.0-35.0); MCHC 30.6 g/dL (31.0-37.0); MCV 93.8 fL (80.0-100.0); Mean Platelet Volume 11.7; Platelet Count 222 k/uL (150-450); RBC 2.86 m/uL (4.30-5.90); RDW 15.6 % (11.5-15.5); WBC 17.5 k/uL (3.8-10.6)
[2024-06-18 04:50] LABS: African American GFR (CKD) 50 (>60 ml/min/1.73 sqM); Anion Gap 3 mmol/L; Calcium 7.7 mg/dL (8.4-10.2); Carbon Dioxide 39 mmol/L (22-30); Chloride 108 mmol/L (98-107); Glucose 181 mg/dL (74-99); Non-African American GFR(CKD) 43 (>60 ml/min/1.73 sqM); Sodium 150 mmol/L (137-145)
[2024-06-18 05:19] LABS: Allen Test Performed? no
[2024-06-18 05:20] LABS: ABG Base Excess 11.3 mmol/L; ABG HCO3 38 mmol/L (21-25); ABG PCO2 64 mmHg (35-45); ABG PH 7.38 (7.35-7.45); ABG PO2 100 mmHg (83-108); ABG TCO2 40 mmol/L (19-24)
[2024-06-18 05:32] LABS: Potassium 6.1 mmol/L (3.5-5.1)
[2024-06-18 05:36] LABS: Blood Urea Nitrogen 131 mg/dL (9-20)
[2024-06-18 05:37] LABS: Glucose,Whole Blood 179 mg/dL (70-110)
--- NOTE | 2024-06-18 06:08 | XR ---
EXAMINATION TYPE: XR chest 1V portable DATE OF EXAM: 06/18/2024 CLINICAL HISTORY: Difficulty breathing progress study. TECHNIQUE: Single AP portable semiupright view of the chest is obtained. COMPARISON: Chest x-ray from one day earlier and older studies. FINDINGS: Stable endotracheal and orogastric tubes. Stable left-sided subclavian central venous cath eter. Persistent bilateral multifocal increased opacities. Cardiac silhouette size is stable and within nor mal limits. Osseous structures are intact. IMPRESSION: Persistent bilateral multifocal acute infiltrates and/or atelectasis. No significant samayoa ge from one day earlier. [facility], , 06/18/2024 6:06 AM
[2024-06-18] MEDS: INSULIN REGULAR 100 UNIT/ML VIAL (IV) IV ONE (06:28)
[2024-06-18] MEDS: CALCIUM GLUCONATE IN NACL 1 GM in SALINE 1 100ML.BAG IVPB ONE (06:30)
[2024-06-18] MEDS: DEXTROSE 50% SYRINGE 50 ML IVP STA (06:31)
[2024-06-18] MEDS: SODIUM ZIRCONIUM CYCLOSILICATE 10 GM PACKET PO ONE (06:50)
--- NOTE | 2024-06-18 09:18 | P.PN ---
Subjective Patient is seen in follow-up for acute kidney injury. Creatinine trending down. On low-dose Levophed. On IV Lasix. Nonoliguric. Receiving water flushes with tube feeds. Also on D5W. Sodium level 150 this morning. Potassium again elevated at 6.1. Intubated. Vital signs are stable. On Levophed. General: Resting in bed. HEENT: Intubated. NG tube noted. LUNGS: Scattered rhonchi. HEART: Rate and Rhythm are regular. ABDOMEN: Soft. Obese. EXTREMITITES: 2+ edema. Objective - Vital Signs Vital signs: Vital Signs Temp 99.4 F 06/18/24 04:00 Pulse 118 H 06/18/24 08:17 Resp 29 H 06/18/24 07:00 BP 135/61 06/18/24 07:00 Pulse Ox 95 06/18/24 07:00 FiO2 50 06/18/24 08:00 Intake & Output 06/17/24 06/18/24 06/18/24 18:59 06:59 18:59 Intake Total 2654.035 2684.307 33 Output Total 2260 3195 180 Balance 394.035 -510.693 -147 Weight 124.7 kg 123 kg Intake: IV 30 36 3 0.9 Nomal Saline Pressure 30 36 3 Bag Intake, IV Titration 787.873 1081.307 Amount Heparin Sod,Pork in 0.45% 250 NaCl 25,000 unit In 0.45 % NaCl 1 250ml.bag @ 8. 375 UNITS/KG/HR 10 mls/hr IV .Q24H [facility] Rx#: [id number] Norepinephrine 8 mg In 122.697 124.122 Sodium Chloride 0.9% 250 ml @ 0.03 MCG/KG/MIN 6. 589 mls/hr IV .Q24H [facility] Rx#:[id number] fentaNYL (PF). 1,000 mcg 84.692 186.847 In Sodium Chloride 0.9% 80 ml @ 0.5 MCG/KG/HR 6. 465 mls/hr IV .[id number] [facility] Rx#:[id number] propofoL 1,000 mg In 396.646 527.338 Empty Bag 1 bag @ 15 MCG/ KG/MIN 8.981 mls/hr IV . Q11H9M [facility] Rx#:[id number] Oral 85 Tube Feeding 335 360 30 Other 1600 1200 Output: Urine 2260 3195 180 Other: Voiding Method Indwelling Catheter Indwelling Catheter ABP, PAP, CO, CI - Last Documented Arterial Blood Pressure 124/47 - Labs CBC & Chem 7: 06/18/24 04:03 06/18/24 04:03 Labs: Abnormal Lab Results - Last 24 Hours (Table) 06/17/24 06/17/24 06/17/24 Range/Units 04:45 11:34 13:55 WBC (3.8-10.6) k/uL RBC (4.30-5.90) m/uL Hgb (13.0-17.5) gm/dL Hct (39.0-53.0) % MCHC (31.0-37.0) g/dL RDW (11.5-15.5) % Haptoglobin 400.0 H (31.2-198.0) mg/dL APTT (22.0-30.0) sec ABG pCO2 (35-45) mmHg ABG HCO3 (21-25) mmol/L ABG Total CO2 (19-24) mmol/L ABG O2 Saturation (94-97) % Sodium (137-145) mmol/L Potassium (3.5-5.1) mmol/L Chloride (98-107) mmol/L Carbon Dioxide (22-30) mmol/L BUN (9-20) mg/dL Creatinine (0.66-1.25) mg/dL Glucose (74-99) mg/dL POC Glucose (mg/dL) 138 H 178 H (70-110) mg/dL Calcium (8.4-10.2) mg/dL 06/17/24 06/17/24 06/17/24 Range/Units 14:00 16:45 17:41 WBC (3.8-10.6) k/uL RBC (4.30-5.90) m/uL Hgb (13.0-17.5) gm/dL Hct (39.0-53.0) % MCHC (31.0-37.0) g/dL RDW (11.5-15.5) % Haptoglobin (31.2-198.0) mg/dL APTT (22.0-30.0) sec ABG pCO2 (35-45) mmHg ABG HCO3 (21-25) mmol/L ABG Total CO2 (19-24) mmol/L ABG O2 Saturation (94-97) % Sodium 152 H (137-145) mmol/L Potassium 5.9 H (3.5-5.1) mmol/L Chloride 111 H (98-107) mmol/L Carbon Dioxide 38 H (22-30) mmol/L BUN 139 H* (9-20) mg/dL Creatinine 1.90 H (0.66-1.25) mg/dL Glucose 171 H (74-99) mg/dL POC Glucose (mg/dL) 170 H 138 H (70-110) mg/dL Calcium 7.5 L (8.4-10.2) mg/dL 06/17/24 06/17/24 06/18/24 Range/Units 21:57 23:22 04:03 WBC 17.5 H (3.8-10.6) k/uL RBC 2.86 L (4.30-5.90) m/uL Hgb 8.2 L (13.0-17.5) gm/dL Hct 26.8 L (39.0-53.0) % MCHC 30.6 L (31.0-37.0) g/dL RDW 15.6 H (11.5-15.5) % Haptoglobin (31.2-198.0) mg/dL APTT (22.0-30.0) sec ABG pCO2 (35-45) mmHg ABG HCO3 (21-25) mmol/L ABG Total CO2 (19-24) mmol/L ABG O2 Saturation (94-97) % Sodium 153 H (137-145) mmol/L Potassium 5.6 H (3.5-5.1) mmol/L Chloride 109 H (98-107) mmol/L Carbon Dioxide 36 H (22-30) mmol/L BUN 132 H* (9-20) mg/dL Creatinine 1.86 H (0.66-1.25) mg/dL Glucose 155 H (74-99) mg/dL POC Glucose (mg/dL) 183 H (70-110) mg/dL Calcium 7.9 L (8.4-10.2) mg/dL 06/18/24 06/18/24 06/18/24 Range/Units 04:03 04:03 04:21 WBC (3.8-10.6) k/uL RBC (4.30-5.90) m/uL Hgb (13.0-17.5) gm/dL Hct (39.0-53.0) % MCHC (31.0-37.0) g/dL RDW (11.5-15.5) % Haptoglobin (31.2-198.0) mg/dL APTT 38.3 H (22.0-30.0) sec ABG pCO2 64 H (35-45) mmHg ABG HCO3 38 H (21-25) mmol/L ABG Total CO2 40 H (19-24) mmol/L ABG O2 Saturation 98.0 H (94-97) % Sodium 150 H (137-145) mmol/L Potassium 6.1 H* (3.5-5.1) mmol/L Chloride 108 H (98-107) mmol/L Carbon Dioxide 39 H (22-30) mmol/L BUN 131 H* (9-20) mg/dL Creatinine 1.61 H (0.66-1.25) mg/dL Glucose 181 H (74-99) mg/dL POC Glucose (mg/dL) (70-110) mg/dL Calcium 7.7 L (8.4-10.2) mg/dL 06/18/24 Range/Units 05:36 WBC (3.8-10.6) k/uL RBC (4.30-5.90) m/uL Hgb (13.0-17.5) gm/dL Hct (39.0-53.0) % MCHC (31.0-37.0) g/dL RDW (11.5-15.5) % Haptoglobin (31.2-198.0) mg/dL APTT (22.0-30.0) sec ABG pCO2 (35-45) mmHg ABG HCO3 (21-25) mmol/L ABG Total CO2 (19-24) mmol/L ABG O2 Saturation (94-97) % Sodium (137-145) mmol/L Potassium (3.5-5.1) mmol/L Chloride (98-107) mmol/L Carbon Dioxide (22-30) mmol/L BUN (9-20) mg/dL Creatinine (0.66-1.25) mg/dL Glucose (74-99) mg/dL POC Glucose (mg/dL) 179 H (70-110) mg/dL Calcium (8.4-10.2) mg/dL Microbiology - Last 24 Hours (Table) 06/15/24 09:30 Blood Culture - Preliminary Blood Assessment and Plan Plan: Assessment: 1. Acute kidney injury secondary to ATN secondary to septic shock. Creatinine peaked at 2.94 this admission and is 1.61 today. Nonoliguric. Baseline creatinine near 1. No hydronephrosis noted on kidney ultrasound. 2. Septic shock secondary to pneumonia. Blood culture positive for strep and staph. Sputum culture positive for strep and Natalie. Also influenza A posit josé miguel. 3. Hyperkalemia secondary to acute kidney injury, hyperglycemia and catabolic state. 4. Hypernatremia from lack of oral water intake and free water diuresis. 5. Acute hypoxic respiratory failure. Intubated. Plan: Maintain IV Lasix. Patient received IV calcium, IV regular insulin with D50 this morning. Add scheduled Lokelma 10 g 3 times daily. Patient received a dose this morning. Maintain water flushes with tube feeds 400 cc every 4 hours. Maintain D5W at 75 cc an hour. Blood glucose control. Tube feeds with low potassium. Repeat potassium level at 10 AM. Repeat BMP this evening. Continue to monitor renal function and urine output. Wean FiO2 and Levophed.
--- NOTE | 2024-06-18 09:57 | P.PN ---
Subjective Progress Note Date: 06/18/24 Pressor requirement increased to 0.06. BUN is 130s, but creatinine improved again and UOP improved on lasix. Na improved, K stable with shifting agents. General: intubated, sedated HEENT: normocephalic, atraumatic, no tracheal deviation Respiratory: symmetric chest rise, no cyanosis, ventilator dependent CVS: perfusing all extremities, no distal gangrene, trace pitting edema GI: soft, ND : no SPT, no CVAT, black is present Neuro: sedated Hospital Course: Patient is a 69-year-old male with past medical history of A-fib status post ablation, hypertension. History obtained from chart review. Per ER note, EMS was called by patient's family for shortness of breath, family reported that multiple family members were sick in the house. They noted his SpO2 to be in 60s on placed him on CPAP with no improvement and he continued to breathe rapidly, spiking fever Initially, patient was placed on BiPAP for hypoxia, remained tachypneic and in respiratory distress despite BiPAP. Patient spent 1-1/2-hour on BiPAP with no improvement in his respiratory status, therefore, decision was made to intubate on 06/10, and was sedated, paralyzed, and transferred to ICU. Started on treatment for acute hypoxic respiratory failure secondary to bilateral pneumonia, influenza A pneumonia with cefepime, vancomycin; tamiflu, and solumedrol. Repeat chest x-ray showed diffuse pulmonary infiltrates and blood gases showed severe acidosis with pH of 7.05, patient was started on bicarb drip overnight, his blood pressure dropped requiring pressors. Hospital course complicated by oliguric renal failure. Nephrology consulted, kidney ultrasound and UA ordered, showed no obstruction or hydronephrosis. Blood cultures growing strep pneumo, antibiotics de-escalated to ceftriaxone 2 g daily. Cardiology con sulted for A-fib with RVR, patient started on amiodarone drip, then switched to oral amiodarone starting as well as heparin gtt. Assessment and Plan: Septic shock secondary with Acute Hypoxemic Respiratory Failure Community-acquired strep pneumo pneumonia, influenza A infection Strep pneumo bacteremia -Vent settings per ICU: currently being weaned down PEEP 18-->16-->14, FiO2 70%-->60%-->50% -Continue ceftriaxone 2 g daily, antibiotics SOT 06/10 -Remains on solumedrol -Tamiflu has been discontinued 06/15 -Continue DuoNebs q4 hours -Patient's girlfriend updated on 06/16, all questions answered Steroid induced hyperglycemia Prediabetes -SSI, Accu-Cheks every 6 hours, - Levemir 25 units twice daily - Lispro 5 units q6h JACQUES -qualifies for metformin on discharge if kidney function recovers enough, otherwise defer to outpatient follow up Acute Anemia -retic count is 1.1 (hypoproliferative) -FOBT ordered -LDH 320, haptoglobin high -repeat UA shows moderate blood, 59 RBC, occasional uric acid crystals -D-dimer elevated, but Fibrinogen normal, PTT elevated, PT/INR normal -consider discontinuing heparin gtt if continued drop in hgb Acute Kidney Injury secondary to ATN, oliguric Hyperkalemia Hypernatremia Metabolic Alkalosis -Nephrology following -Lasix at 80mg IV q12hr -BUN elevated, but Cr improving -Na improving, FWF - 100cc q4h Persistent A-fib status post ablation : -Continue heparin drip, -Amiodarone p.o. 400 twice daily, Lopressor 25 twice daily. -Cardiology following History of hypertension: GERD: Left forehead lipoma Obesity, Class III -Home medications reviewed and reconciled GI PPx: Stress ulcer prophylaxis with IV Protonix CODE STATUS: default full code DVT prophylaxis: Heparin drip Anticipated discharge date: tbd Anticipated discharge place: tbd Objective - Vital Signs Vital signs: Vital Signs Temp 99.4 F 06/18/24 04:00 Pulse 118 H 06/18/24 08:17 Resp 29 H 06/18/24 07:00 BP 135/61 06/18/24 07:00 Pulse Ox 95 06/18/24 07:00 FiO2 50 06/18/24 08:00 Intake & Output 06/17/24 06/18/24 06/18/24 18:59 06:59 18:59 Intake Total 2654.035 2684.307 129.646 Output Total 2260 3195 180 Balance 394.035 -510.693 -50.354 Weight 124.7 kg 123 kg Intake: IV 30 36 3 0.9 Nomal Saline Pressure 30 36 3 Bag Intake, IV Titration 360.380 5167.307 96.646 Amount Heparin Sod,Pork in 0.45% 250 NaCl 25,000 unit In 0.45 % NaCl 1 250ml.bag @ 8. 375 UNITS/KG/HR 10 mls/hr IV .Q24H [facility]ACQUES Rx#: [id number] Norepinephrine 8 mg In 122.697 124.122 Sodium Chloride 0.9% 250 ml @ 0.03 MCG/KG/MIN 6. 589 mls/hr IV .Q24H [facility]ACQUES Rx#:[id number] fentaNYL (PF). 1,000 mcg 84.692 186.847 In Sodium Chloride 0.9% 80 ml @ 0.5 MCG/KG/HR 6. 465 mls/hr IV .[id number] [facility]AC[facility] Rx#:[id number] propofoL 1,000 mg In 396.646 527.338 96.646 Empty Bag 1 bag @ 15 MCG/ KG/MIN 8.981 mls/hr IV . Q11H9M JACQUES Rx#:[id number] Oral 85 Tube Feeding 335 360 30 Other 1600 1200 Output: Urine 2260 3195 180 Other: Voiding Method Indwelling Catheter Indwelling Catheter ABP, PAP, CO, CI - Last Documented Arterial Blood Pressure 124/47 - Labs CBC & Chem 7: 06/18/24 04:03 06/18/24 04:03 Labs: Abnormal Lab Results - Last 24 Hours (Table) 06/17/24 06/17/24 06/17/24 Range/Units 04:45 11:34 13:55 WBC (3.8-10.6) k/uL RBC (4.30-5.90) m/uL Hgb (13.0-17.5) gm/dL Hct (39.0-53.0) % MCHC (31.0-37.0) g/dL RDW (11.5-15.5) % Haptoglobin 400.0 H (31.2-198.0) mg/dL APTT (22.0-30.0) sec ABG pCO2 (35-45) mmHg ABG HCO3 (21-25) mmol/L ABG Total CO2 (19-24) mmol/L ABG O2 Saturation (94-97) % Sodium (137-145) mmol/L Potassium (3.5-5.1) mmol/L Chloride (98-107) mmol/L Carbon Dioxide (22-30) mmol/L BUN (9-20) mg/dL Creatinine (0.66-1.25) mg/dL Glucose (74-99) mg/dL POC Glucose (mg/dL) 138 H 178 H (70-110) mg/dL Calcium (8.4-10.2) mg/dL 06/17/24 06/17/24 06/17/24 Range/Units 14:00 16:45 17:41 WBC (3.8-10.6) k/uL RBC (4.30-5.90) m/uL Hgb (13.0-17.5) gm/dL Hct (39.0-53.0) % MCHC (31.0-37.0) g/dL RDW (11.5-15.5) % Haptoglobin (31.2-198.0) mg/dL APTT (22.0-30.0) sec ABG pCO2 (35-45) mmHg ABG HCO3 (21-25) mmol/L ABG Total CO2 (19-24) mmol/L ABG O2 Saturation (94-97) % Sodium 152 H (137-145) mmol/L Potassium 5.9 H (3.5-5.1) mmol/L Chloride 111 H (98-107) mmol/L Carbon Dioxide 38 H (22-30) mmol/L BUN 139 H* (9-20) mg/dL Creatinine 1.90 H (0.66-1.25) mg/dL Glucose 171 H (74-99) mg/dL POC Glucose (mg/dL) 170 H 138 H (70-110) mg/dL Calcium 7.5 L (8.4-10.2) mg/dL 06/17/24 06/17/24 06/18/24 Range/Units 21:57 23:22 04:03 WBC 17.5 H (3.8-10.6) k/uL RBC 2.86 L (4.30-5.90) m/uL Hgb 8.2 L (13.0-17.5) gm/dL Hct 26.8 L (39.0-53.0) % MCHC 30.6 L (31.0-37.0) g/dL RDW 15.6 H (11.5-15.5) % Haptoglobin (31.2-198.0) mg/dL APTT (22.0-30.0) sec ABG pCO2 (35-45) mmHg ABG HCO3 (21-25) mmol/L ABG Total CO2 (19-24) mmol/L ABG O2 Saturation (94-97) % Sodium 153 H (137-145) mmol/L Potassium 5.6 H (3.5-5.1) mmol/L Chloride 109 H (98-107) mmol/L Carbon Dioxide 36 H (22-30) mmol/L BUN 132 H* (9-20) mg/dL Creatinine 1.86 H (0.66-1.25) mg/dL Glucose 155 H (74-99) mg/dL POC Glucose (mg/dL) 183 H (70-110) mg/dL Calcium 7.9 L (8.4-10.2) mg/dL 06/18/24 06/18/24 06/18/24 Range/Units 04:03 04:03 04:21 WBC (3.8-10.6) k/uL RBC (4.30-5.90) m/uL Hgb (13.0-17.5) gm/dL Hct (39.0-53.0) % MCHC (31.0-37.0) g/dL RDW (11.5-15.5) % Haptoglobin (31.2-198.0) mg/dL APTT 38.3 H (22.0-30.0) sec ABG pCO2 64 H (35-45) mmHg ABG HCO3 38 H (21-25) mmol/L ABG Total CO2 40 H (19-24) mmol/L ABG O2 Saturation 98.0 H (94-97) % Sodium 150 H (137-145) mmol/L Potassium 6.1 H* (3.5-5.1) mmol/L Chloride 108 H (98-107) mmol/L Carbon Dioxide 39 H (22-30) mmol/L BUN 131 H* (9-20) mg/dL Creatinine 1.61 H (0.66-1.25) mg/dL Glucose 181 H (74-99) mg/dL POC Glucose (mg/dL) (70-110) mg/dL Calcium 7.7 L (8.4-10.2) mg/dL 06/18/24 Range/Units 05:36 WBC (3.8-10.6) k/uL RBC (4.30-5.90) m/uL Hgb (13.0-17.5) gm/dL Hct (39.0-53.0) % MCHC (31.0-37.0) g/dL RDW (11.5-15.5) % Haptoglobin (31.2-198.0) mg/dL APTT (22.0-30.0) sec ABG pCO2 (35-45) mmHg ABG HCO3 (21-25) mmol/L ABG Total CO2 (19-24) mmol/L ABG O2 Saturation (94-97) % Sodium (137-145) mmol/L Potassium (3.5-5.1) mmol/L Chloride (98-107) mmol/L Carbon Dioxide (22-30) mmol/L BUN (9-20) mg/dL Creatinine (0.66-1.25) mg/dL Glucose (74-99) mg/dL POC Glucose (mg/dL) 179 H (70-110) mg/dL Calcium (8.4-10.2) mg/dL Microbiology - Last 24 Hours (Table) 06/15/24 09:30 Blood Culture - Preliminary Blood
[2024-06-18 12:05] LABS: Glucose,Whole Blood 168 mg/dL (70-110)
--- NOTE | 2024-06-18 12:56 | P.PN ---
Subjective Progress Note Date: 06/18/24 Principal diagnosis: Acute hypoxic respiratory failure with sepsis secondary to streptococcal pneumonia 69-year-old male patient came into the emergency department for shortness of breath. According to the significant other, the patient was sick approximately a week ago and his condition has been progressively getting worse. The patient has been falling. He has been having difficulties in keeping himself up and moving around over the past 24 hours. Based on that, he came into the emergency department. His initial pulse ox was 60% and he was placed on a BiPAP and rapi dly following that, the patient was intubated and placed on the mechanical ventilator. Chest x-ray at time of admission showed extensive pneumonia with left upper lobe consolidation and air bronchograms and bibasilar pulmonary infiltrates. Patient tested positive for influenza A. Postintubation, the patient's blood gases showed a pH of 7.36 with a pCO2 of 43 and pO2 of 60. Nevertheless, by the time he arrived to the ICU, the patient was again hypoxic with a pulse ox of 78%. Necessary ventilator changes were done and currently the patient is in a rate of 26, tidal volume of 375, PEEP of 24 with an FiO2 of 100% and expiratory pause of 0.2 ms. The blood gas showed a pH of 7.16 with a pCO2 of 77 and pO2 of 66. Triple-lumen catheter was established in the left IJ. Arterial line was also established. The patient is currently on Tamiflu. He was also started on broad-spectrum antibiotics utilizing a combination of cefepime Zithromax and vancomycin. Started on systemic steroids. Hem odynamically stable. No hypotension. Cardiac rhythm is sinus. According to the significant other, he has history of paroxysmal atrial fibrillation and the patient has undergone ablation. Cardiac rhythm is sinus. He also has hypertension. He is a former smoker. Does not utilize any form of oxygen therapy or inhalers on outpatient basis. No history of bronchial asthma. No history of COPD. No history of any congestion or heart failure. The white cell count of 15.3 with hemoglobin 15.8 and a platelet count of 265. Normal coagulation profile. BUN is 63 with a creatinine 1.42 and a sodium levels at 140 with a potassium level of 4.5. Initial lactic acid level was at 3.8 and dropped down to 2.0. The patient is currently on normal saline at rate of 100 cc an hour. Furthermore, he is sedated with propofol and paralytics with Bumex. In the intensive care unit. 06/14/2024, the patient is being seen for a follow-up. Remains intubated on the mechanical ventilator. This morning, the patient is off paralytics and the patient remains on propofol running at 65 mcg/kg/min. Remains on mechanical ventilator assist-control mode rate of 34, tidal volume of 450, FiO2 of 70% with a PEEP of 18. Blood gas showed a pH of 7.28 with a pCO2 of 59 and pO2 of 89. The patient remains hypotensive and remains on norepinephrine. The patient will be taken off vasopressin. Norepinephrine is running at 0.15 mcg/kg/min. Chest x-ray still showing stable bilateral pulmonary consolidation more extensive in the right lower lobe and the left upper lobe. Remains atrial fibrillation. Remains on IV Rocephin. Continues to receive enteral feeding for nutritional support. Remains on IV heparin regarding his ongoing atrial fibrillation. The WBC count is at 18, still elevated with a hemoglobin 10.3 and a platelet count of 193. Sodium is at 141, potassium is 5.1, bicarb is 27, BUN is 124 and creatinine is at 2.76. Despite ongoing renal failure, the patient is producing urine output. The patient was given Lasix and he continues to receive Lasix 80 mg on a daily basis. Rest of the medications remain unchanged. Completing course of Tamiflu. Remains on IV Rocephin. Remains on a combination of metoprolol 25 mg twice daily and amiodarone 4 mg p.o. twice daily for rate control. 06/15/2024, the patient is being seen for a follow-up. Remains intubated on mechanical ventilator. Remains sedated on propofol. Off paralytics and slightly asynchronous mechanical ventilator. May need fentanyl. Will continue monitoring his progress. Remains intubated on mechanical ventilator assist- control mode at rate of 36, tidal volume of 450, FiO2 of 70% with a PEEP of 18. Blood gas showed pH of 7.28 with a pCO2 of 64 pO2 of 106. Peak airway pressure is 36. Remains on norepinephrine running at 0.2 mcg/kg/min. Remains on vital HP at rate of 35 cc an hour. Follow-up chest x-ray done today shows improvement in the left upper lobe and right lower lobe pulmonary infiltrates. White cell count is at 19 with a hemoglobin 9.6 and a platelet count of 217. Sodium is at 146, potassium is at 5.7, chloride is 108, BUN is 140 with a creatinine of 2.5. Blood sugar is 200. Calcium level is at 7.4. Did have a episode of fever with a Tmax of 101.3. Remains on Lasix 80 mg IV every 24 hours. Fluid balance is +1.1 L over the past 24 hours and the patient has produced more than 2 L of urine output for yesterday. On 06/16/2024, patient is being seen for a follow-up. The patient remains on mechanical ventilator, sedated with propofol 65 mcg/kg/min and fentanyl at 1 mcg/kg/h. Chest x-ray findings are essentially stable and shows ongoing improvement in bilateral pulmonary infiltrates. Nevertheless, the patient remains intubated on mechanical ventilator. On today's evaluation, he is on assist-control at rate of 34, tidal volume of 450, FiO2 of 50% with a PEEP of 16. Blood gas showed a pH of 7.34 with pCO2 of 64 and pO2 of 79. The patient hemodynamically remains in atrial fibrillation, controlled rate. Vasopressin has been discontinued and norepinephrine has been weaned down to 0.07 mcg/kg/min. Remains on IV Lasix 80 mg every 12 hours. Fluid balance is -1.8 L over the past 24 hours. Remains on IV heparin. Remains on Lantus insulin 25 units daily and vital high-protein at rate of 35 cc an hour. Blood work from today shows a white cell count of 18, hemoglobin 9.1 and platelet count of 206. Sodium is at 151, K is at 5.8, BUN is at 143 with a creatinine of 2.3. Blood sugars at 195. Magnesium level is at 3.8. Calcium level is at 7.3. Patient was seen today on 06/17/2024, remains in the ICU, intubated and mechanically ventilated. Patient is still requiring ventilatory support still requiring hemodynamic support/norepinephrine and he remains quite ill, not ready for any trials of extubation. Patient is on assist-control rate of 34 tidal volume 450 FiO2 50% and PEEP of 16 ABG showed a pO2 of 99 pCO2 64 pH of 7.36. Patient is requiring norepinephrine at 0.03 mcg/kg/min propofol 65 mcg/kg/min Fentanyl 1 mcg/kg/h. Patient is receiving vital HP 35/35. Antibiotics lara he remains on Rocephin patient still on diuretics, seen by nephrology today, and he was placed on Lokelma and insulin was added for hyperkalemia. Patient was initially intubated on 06/10 and today is his seventh day of ventilatory support. Based on physical examination and based on his chest x-ray findings, he remains quite ill and he is not ready for any trials of weaning. Chest x-ray remains quite abnormal and on physical examination he has crackles rhonchi and wheezes noted bilaterally. Patient continues to have leukocytosis with WBC count of 17 hemoglobin is 8.3 D-dimer is 2.25. Sodium is 153 potassium 5.7 patient is on Lokelma, nephrology increased his free water via orogastric tube. Renal profile is abnormal with a BUN of 143 creatinine 2.03 liver enzymes are basically unremarkable LDH however is 320. Chest x-ray showed persistent bilateral multifocal infiltrates and/or atelectasis. But I believe this is mostly infiltrates. Patient was evaluated today on 06/18/2024, remains in the ICU remains intubated and mechanically ventilated still requiring norepinephrine at 0.07 micrograms per kilo per minute for low blood pressure patient remains on assist-control rate of 34 tidal volume 450 FiO2 50% PEEP is 16 and I cut it down to 14 today. ABG showed a pO2 of 100 pCO2 64 pH of 7.38 hence no other changes were made in ventilator settings. Drips lara patient remains on fentanyl at 1 mcg/kg/h propofol 65 mg/kg/min heparin drip, norepinephrine at 0.07 D5W at 75 cc/h Rocephin was renewed today he remains on Lasix 80 mg IV push every 12 hours. Patient is basically about the same, not much has changed between yesterday and today. Chest x-ray continues to show evidence of bilateral multifocal infiltrates and/or atelectasis. No significant change noted in chest x-ray compared to yesterday. Continues to have leukocytosis with WBC of 17.5 hemoglobin is 8.2 sodium is a bit better with sodium of 150 potassium 6.1 being addressed by nephrology BUN is 131 creatinine 1.61 bicarb is 39. Blood sugar is 181. Patient is in sinus rhythm, he is on amiodarone at 400 mg p.o. twice daily, remains on Rocephin remains on Lasix 80 twice daily, on insulin, and on updrafts as well as lactulose. Clearly considering the patient continues to have significantly abnormal chest x-ray and still requiring high PEEP, not ready for any weaning at this point. Objective - Vital Signs Vital signs: Vital Signs Temp 100.9 F H 06/18/24 08:00 Pulse 102 H 06/18/24 11:45 Resp 34 H 06/18/24 11:00 BP 149/65 06/18/24 11:00 Pulse Ox 96 06/18/24 11:00 FiO2 50 06/18/24 11:36 Intake & Output 06/17/24 06/18/24 06/18/24 18:59 06:59 18:59 Intake Total 2654.035 2687.691 1116.696 Output Total 2260 3195 1580 Balance 394.035 -507.309 -463.304 Weight 124.7 kg 123 kg 123 kg Intake: IV 30 36 365 0.9 Nomal Saline Pressure 30 36 15 Bag Dextrose 5% in Water 1, 300 000 ml @ 75 mls/hr IV . [id number] JACQUES Rx#:[id number] cefTRIAXone 2 gm In 50 Sodium Chloride 0.9% 50 ml @ 100 mls/hr IVPB Q24HR JACQUES Rx#:[id number] Intake, IV Titration 737.523 5641.691 181.696 Amount Heparin Sod,Pork in 0.45% 250 NaCl 25,000 unit In 0.45 % NaCl 1 250ml.bag @ 8. 375 UNITS/KG/HR 10 mls/hr IV .Q24H [facility]AC[facility] Rx#: [id number] Norepinephrine 8 mg In 122.697 127.506 9.517 Sodium Chloride 0.9% 250 ml @ 0.03 MCG/KG/MIN 6. 589 mls/hr IV .Q24H [facility]AC[facility] Rx#:[id number] fentaNYL (PF). 1,000 mcg 84.692 186.847 75.533 In Sodium Chloride 0.9% 80 ml @ 0.5 MCG/KG/HR 6. 465 mls/hr IV .[id number] [facility]AC[facility] Rx#:[id number] propofoL 1,000 mg In 396.646 527.338 96.646 Empty Bag 1 bag @ 15 MCG/ KG/MIN 8.981 mls/hr IV . Q11H9M JACQUES Rx#:[id number] Oral 85 Tube Feeding 335 360 170 Other 1600 1200 400 Output: Urine 2260 3195 1580 Other: Voiding Method Indwelling Catheter Indwelling Catheter Indwelling Catheter ABP, PAP, CO, CI - Last Documented Arterial Blood Pressure 123/50 - Exam General: Revealed 69-year-old white male obese intubated and mechanically ventilated Derm: No rashes Head: Atraumatic normocephalic Eyes: PERRLA, EOMI, nonicteric, periorbital swelling is noted Mouth: Normal mucous membranes, endotracheal tube and orogastric tube are intact. Cardiovascular: Distant S1-S2, no S3 gallop, no murmur Lungs: Diminished breath sound bilaterally no rhonchi no wheezes Abdominal: Obese soft nontender no rebound no guarding Ext: 3+ bipedal edema Neuro: Could not assess, patient is intubated and sedated Psych: Could not assess patient is intubated and sedated [ - Labs CBC & Chem 7: 06/18/24 04:03 06/18/24 10:16 Labs: Abnormal Lab Results - Last 24 Hours (Table) 06/17/24 06/17/24 06/17/24 Range/Units 13:55 14:00 16:45 WBC (3.8-10.6) k/uL RBC (4.30-5.90) m/uL Hgb (13.0-17.5) gm/dL Hct (39.0-53.0) % MCHC (31.0-37.0) g/dL RDW (11.5-15.5) % APTT (22.0-30.0) sec ABG pCO2 (35-45) mmHg ABG HCO3 (21-25) mmol/L ABG Total CO2 (19-24) mmol/L ABG O2 Saturation (94-97) % Sodium 152 H (137-145) mmol/L Potassium 5.9 H (3.5-5.1) mmol/L Chloride 111 H (98-107) mmol/L Carbon Dioxide 38 H (22-30) mmol/L BUN 139 H* (9-20) mg/dL Creatinine 1.90 H (0.66-1.25) mg/dL Glucose 171 H (74-99) mg/dL POC Glucose (mg/dL) 178 H 170 H (70-110) mg/dL Calcium 7.5 L (8.4-10.2) mg/dL 06/17/24 06/17/24 06/17/24 Range/Units 17:41 21:57 23:22 WBC (3.8-10.6) k/uL RBC (4.30-5.90) m/uL Hgb (13.0-17.5) gm/dL Hct (39.0-53.0) % MCHC (31.0-37.0) g/dL RDW (11.5-15.5) % APTT (22.0-30.0) sec ABG pCO2 (35-45) mmHg ABG HCO3 (21-25) mmol/L ABG Total CO2 (19-24) mmol/L ABG O2 Saturation (94-97) % Sodium 153 H (137-145) mmol/L Potassium 5.6 H (3.5-5.1) mmol/L Chloride 109 H (98-107) mmol/L Carbon Dioxide 36 H (22-30) mmol/L BUN 132 H* (9-20) mg/dL Creatinine 1.86 H (0.66-1.25) mg/dL Glucose 155 H (74-99) mg/dL POC Glucose (mg/dL) 138 H 183 H (70-110) mg/dL Calcium 7.9 L (8.4-10.2) mg/dL 06/18/24 06/18/24 06/18/24 Range/Units 04:03 04:03 04:03 WBC 17.5 H (3.8-10.6) k/uL RBC 2.86 L (4.30-5.90) m/uL Hgb 8.2 L (13.0-17.5) gm/dL Hct 26.8 L (39.0-53.0) % MCHC 30.6 L (31.0-37.0) g/dL RDW 15.6 H (11.5-15.5) % APTT 38.3 H (22.0-30.0) sec ABG pCO2 (35-45) mmHg ABG HCO3 (21-25) mmol/L ABG Total CO2 (19-24) mmol/L ABG O2 Saturation (94-97) % Sodium 150 H (137-145) mmol/L Potassium 6.1 H* (3.5-5.1) mmol/L Chloride 108 H (98-107) mmol/L Carbon Dioxide 39 H (22-30) mmol/L BUN 131 H* (9-20) mg/dL Creatinine 1.61 H (0.66-1.25) mg/dL Glucose 181 H (74-99) mg/dL POC Glucose (mg/dL) (70-110) mg/dL Calcium 7.7 L (8.4-10.2) mg/dL 06/18/24 06/18/24 06/18/24 Range/Units 04:21 05:36 12:03 WBC (3.8-10.6) k/uL RBC (4.30-5.90) m/uL Hgb (13.0-17.5) gm/dL Hct (39.0-53.0) % MCHC (31.0-37.0) g/dL RDW (11.5-15.5) % APTT (22.0-30.0) sec ABG pCO2 64 H (35-45) mmHg ABG HCO3 38 H (21-25) mmol/L ABG Total CO2 40 H (19-24) mmol/L ABG O2 Saturation 98.0 H (94-97) % Sodium (137-145) mmol/L Potassium (3.5-5.1) mmol/L Chloride (98-107) mmol/L Carbon Dioxide (22-30) mmol/L BUN (9-20) mg/dL Creatinine (0.66-1.25) mg/dL Glucose (74-99) mg/dL POC Glucose (mg/dL) 179 H 168 H (70-110) mg/dL Calcium (8.4-10.2) mg/dL Microbiology - Last 24 Hours (Table) 06/15/24 09:30 Blood Culture - Preliminary Blood Assessment and Plan Assessment: Impression: Acute hypoxic respiratory failure secondary to bilateral pneumococcal pneumonia and septic shock. Mechanically ventilated, on pressors Bilateral pneumococcal pneumonia following an acute influenza A infection. Septic shock, second pneumococcal pneumonia with bacteremia. Acute kidney injury,, likely acute tubular necrosis being followed by nephrology Acute leukocytosis, white cell count is still elevated, secondary to above mostly sepsis and septic shock Atrial fibrillation with rapid ventricular response, currently on amiodarone . The heart rate is controlled rate. Remains on IV heparin. History of hypertension Hypernatremia secondary to free water deficit Recommendation: Continue ventilatory support, patient has been intubated since 10 June not making any significant progress to speak of to consider any weaning trials. Continue hemodynamic support now on norepinephrine 0.07 mcg/kg/min Continue free water to correct his hypernatremia Continue Lasix, 80 mg IV push twice daily Continue Lokelma and continue insulin as per nephrology Continue to monitor renal profile and electrolytes Patient completed a course of Tamiflu Continue IV Solu-Medrol Continue Rocephin/renewed today Continue enteral feeding for nutritional support Continue GI and DVT prophylaxis Continue insulin Continue oral amiodarone 400 mg p.o. twice a day Heparin as per cardiology Patient remains critically ill,Critical care time is 32 minutes Time with Patient: Greater than 30
--- NOTE | 2024-06-18 13:36 | P.PN ---
Subjective The patient is a 69-year-old male who presented with symptoms of progressive dyspnea, diagnosed with pneumonia and influenza A, requiring mechanical ventilation. Cardiology consultation was requested because of atrial fibrillation. The patient is intubated and sedated. He has a history of atrial fibrillation, status post ablation in January 2024. He was in sinus mechanism on presentation and back in atrial fibrillation at this time with episode of rapid ventricle response. He is on vasopressors. He had an echocardiogram that showed a preserved systolic function, the study was technically difficult. The patient has been anticoagulated as an outpatient. Her chest x-ray shows severe infiltration bilaterally consistent with a pneumonia. Presentation he had evidence of acute renal injury and hypotension related to sepsis. He has been initiated on amiodarone and he is on vasopressin in addition to norepinephrine June 13: The patient remains intubated and sedated. He had episodes of paroxysmal atrial fibrillation. He is in sinus mechanism at this time. He continues to be on norepinephrine. His urine output is stable. His chest x-ray shows bilateral infiltrate consistent with his pneumonia. There is no evidence of ventricular ectopic activity.There is significant worsening of his renal function with a BUN up to 101 with a creatinine of 2.94. Tolerating tube feeding June 14: The patient remains intubated and sedated. He is in atrial fibrillation with controlled ventricular response. He is on the lower dose of norepinephrine. His urine output has been stable and he is tolerating tube feeding. He had no evidence of ventricular ectopic activity. He continues to have significant infiltrate on his chest x-ray. June 15: The patient remains intubated and sedated, he is on the lower PEEP. He jeff nues to be in atrial fibrillation with controlled ventricular response. His urinary output has improved. There is no evidence of ventricular ectopic activity. His chest x-ray continues to show evidence of infiltrate bilaterally. Continues to be on IV heparin. He has worsening of his renal functions. June 16: The patient remains intubated and sedated on PEEP of 16. His dose of Levophed has been decreased. He continues to be on IV diuretics with good urine output. He is in atrial fibrillation with controlled ventricular response but no evidence of ventricular ectopic activity. His chest x-ray continues to show bilateral infiltrate. 06/17 patient seen and examined. Patient remains intubated and sedated. Per nursing has been able to be weaned somewhat on the norepinephrine. Still requiring 50% FiO2 with PEEP of 16. He is getting free water flushes through his OG tube. Good urine output with approximately 100 mL per hour. Creatinine mildly improving to 1.9 and BUN relatively stable. He remains in A. fib with heart rates 80s to 100s. hemoglobin downtrending to 8.3. Per nursing some bruising around his left subclavian central line. 06/18 Patient seen and examined. Patient remains intubated and sedated. Currently undergoing spontaneous breathing trial. Remains in A. fib with heart rates in the 90s to 100s. Creatinine mildly improving to 1.6 however significantly elevated BUN 131. Potassium originally 6.1 however improved to 5.1. He is receiving free water flushes through his G-tube with mild improvement in sodium to 150. Hemoglobin relatively stable at 8.2. Remains on a heparin drip. Medications: IV heparin, Rocephin, insulin, methylprednisolone, metoprolol tartrate 25 mg twice a day, Tamiflu, vancomycin, amiodarone 400 mg twice a day, Lasix 80 mg IV twice daily, amiodarone 400 mg twice a day PHYSICAL EXAMINATION: vitals reviewed, intubated and sedated LUNGS: Clear to auscultation anteriorly HEART: Irregular rate and rhythm, S1, S2. No S3. Systolic ejection murmur ABDOMEN: Soft, positive bowel sounds, no organomegaly EXTREMETIES: +1 edema IMPRESSION: 1. Acute respiratory failure with bilateral pneumonia and influenza A requiring mechanical ventilation 2. Paroxysmal atrial fibrillation status post ablation in 2023, back in atrial fibrillation 3. Acute renal injury related to the sepsis and hypotension,, good urine output 4. Leukocytosis 5. Anemia 6. Septic shock on vasoperssors PLAN: Continue amiodarone 400mg bid for now with increased HR's. check CVP and if low may consider more aggressive fluid hydration with patient continuing to be significantly hypernatremic and prerenal azotemia. If continued bleeding from his subclavian line would hold heparin however relatively stable at this point. Continue current supportive care and weaning sedation/ventilator as able. If coming down on vasopressors may be able to increase metoprolol however continue for now. Objective - Vital Signs Vital signs: Vital Signs Temp 100.1 F H 06/18/24 12:00 Pulse 105 H 06/18/24 13:00 Resp 37 H 06/18/24 13:00 BP 146/68 06/18/24 13:00 Pulse Ox 96 06/18/24 13:00 FiO2 50 06/18/24 12:00 Intake & Output 06/17/24 06/18/24 06/18/24 18:59 06:59 18:59 Intake Total 2654.035 2687.691 1844.782 Output Total 2260 3195 2380 Balance 394.035 -507.309 -535.218 Weight 124.7 kg 123 kg 123 kg Intake: IV 30 36 521 0.9 Nomal Saline Pressure 30 36 21 Bag Dextrose 5% in Water 1, 450 000 ml @ 75 mls/hr IV . [id number] JACQUES Rx#:[id number] cefTRIAXone 2 gm In 50 Sodium Chloride 0.9% 50 ml @ 100 mls/hr IVPB Q24HR JACQUES Rx#:[id number] Intake, IV Titration 571.404 8194.691 283.782 Amount Heparin Sod,Pork in 0.45% 250 NaCl 25,000 unit In 0.45 % NaCl 1 250ml.bag @ 8. 375 UNITS/KG/HR 10 mls/hr IV .Q24H JACQUES Rx#: [id number] Norepinephrine 8 mg In 122.697 127.506 9.517 Sodium Chloride 0.9% 250 ml @ 0.03 MCG/KG/MIN 6. 589 mls/hr IV .Q24H JACQUES Rx#:[id number] fentaNYL (PF). 1,000 mcg 84.692 186.847 75.533 In Sodium Chloride 0.9% 80 ml @ 0.5 MCG/KG/HR 6. 465 mls/hr IV .[id number] JACQUES Rx#:[id number] propofoL 1,000 mg In 396.646 527.338 198.732 Empty Bag 1 bag @ 15 MCG/ KG/MIN 8.981 mls/hr IV . Q11H9M JACQUES Rx#:[id number] Oral 85 Tube Feeding 335 360 240 Other 1600 1200 800 Output: Urine 2260 3195 2380 Other: Voiding Method Indwelling Catheter Indwelling Catheter Indwelling Catheter ABP, PAP, CO, CI - Last Documented Arterial Blood Pressure 140/58 - Labs CBC & Chem 7: 06/18/24 04:03 06/18/24 10:16 Labs: Abnormal Lab Results - Last 24 Hours (Table) 06/17/24 06/17/24 06/17/24 Range/Units 13:55 14:00 16:45 WBC (3.8-10.6) k/uL RBC (4.30-5.90) m/uL Hgb (13.0-17.5) gm/dL Hct (39.0-53.0) % MCHC (31.0-37.0) g/dL RDW (11.5-15.5) % APTT (22.0-30.0) sec ABG pCO2 (35-45) mmHg ABG HCO3 (21-25) mmol/L ABG Total CO2 (19-24) mmol/L ABG O2 Saturation (94-97) % Sodium 152 H (137-145) mmol/L Potassium 5.9 H (3.5-5.1) mmol/L Chloride 111 H (98-107) mmol/L Carbon Dioxide 38 H (22-30) mmol/L BUN 139 H* (9-20) mg/dL Creatinine 1.90 H (0.66-1.25) mg/dL Glucose 171 H (74-99) mg/dL POC Glucose (mg/dL) 178 H 170 H (70-110) mg/dL Calcium 7.5 L (8.4-10.2) mg/dL 06/17/24 06/17/24 06/17/24 Range/Units 17:41 21:57 23:22 WBC (3.8-10.6) k/uL RBC (4.30-5.90) m/uL Hgb (13.0-17.5) gm/dL Hct (39.0-53.0) % MCHC (31.0-37.0) g/dL RDW (11.5-15.5) % APTT (22.0-30.0) sec ABG pCO2 (35-45) mmHg ABG HCO3 (21-25) mmol/L ABG Total CO2 (19-24) mmol/L ABG O2 Saturation (94-97) % Sodium 153 H (137-145) mmol/L Potassium 5.6 H (3.5-5.1) mmol/L Chloride 109 H (98-107) mmol/L Carbon Dioxide 36 H (22-30) mmol/L BUN 132 H* (9-20) mg/dL Creatinine 1.86 H (0.66-1.25) mg/dL Glucose 155 H (74-99) mg/dL POC Glucose (mg/dL) 138 H 183 H (70-110) mg/dL Calcium 7.9 L (8.4-10.2) mg/dL 06/18/24 06/18/24 06/18/24 Range/Units 04:03 04:03 04:03 WBC 17.5 H (3.8-10.6) k/uL RBC 2.86 L (4.30-5.90) m/uL Hgb 8.2 L (13.0-17.5) gm/dL Hct 26.8 L (39.0-53.0) % MCHC 30.6 L (31.0-37.0) g/dL RDW 15.6 H (11.5-15.5) % APTT 38.3 H (22.0-30.0) sec ABG pCO2 (35-45) mmHg ABG HCO3 (21-25) mmol/L ABG Total CO2 (19-24) mmol/L ABG O2 Saturation (94-97) % Sodium 150 H (137-145) mmol/L Potassium 6.1 H* (3.5-5.1) mmol/L Chloride 108 H (98-107) mmol/L Carbon Dioxide 39 H (22-30) mmol/L BUN 131 H* (9-20) mg/dL Creatinine 1.61 H (0.66-1.25) mg/dL Glucose 181 H (74-99) mg/dL POC Glucose (mg/dL) (70-110) mg/dL Calcium 7.7 L (8.4-10.2) mg/dL 06/18/24 06/18/24 06/18/24 Range/Units 04:21 05:36 12:01 WBC (3.8-10.6) k/uL RBC (4.30-5.90) m/uL Hgb (13.0-17.5) gm/dL Hct (39.0-53.0) % MCHC (31.0-37.0) g/dL RDW (11.5-15.5) % APTT 56.6 H (22.0-30.0) sec ABG pCO2 64 H (35-45) mmHg ABG HCO3 38 H (21-25) mmol/L ABG Total CO2 40 H (19-24) mmol/L ABG O2 Saturation 98.0 H (94-97) % Sodium (137-145) mmol/L Potassium (3.5-5.1) mmol/L Chloride (98-107) mmol/L Carbon Dioxide (22-30) mmol/L BUN (9-20) mg/dL Creatinine (0.66-1.25) mg/dL Glucose (74-99) mg/dL POC Glucose (mg/dL) 179 H (70-110) mg/dL Calcium (8.4-10.2) mg/dL 06/18/24 Range/Units 12:03 WBC (3.8-10.6) k/uL RBC (4.30-5.90) m/uL Hgb (13.0-17.5) gm/dL Hct (39.0-53.0) % MCHC (31.0-37.0) g/dL RDW (11.5-15.5) % APTT (22.0-30.0) sec ABG pCO2 (35-45) mmHg ABG HCO3 (21-25) mmol/L ABG Total CO2 (19-24) mmol/L ABG O2 Saturation (94-97) % Sodium (137-145) mmol/L Potassium (3.5-5.1) mmol/L Chloride (98-107) mmol/L Carbon Dioxide (22-30) mmol/L BUN (9-20) mg/dL Creatinine (0.66-1.25) mg/dL Glucose (74-99) mg/dL POC Glucose (mg/dL) 168 H (70-110) mg/dL Calcium (8.4-10.2) mg/dL Microbiology - Last 24 Hours (Table) 06/15/24 09:30 Blood Culture - Preliminary Blood
[2024-06-18] MEDS: SODIUM ZIRCONIUM CYCLOSILICATE 10 GM PACKET PO SCH (16:52)
[2024-06-18 17:51] LABS: Glucose,Whole Blood 182 mg/dL (70-110)
[2024-06-18 18:25] LABS: Calcium 7.9 mg/dL (8.4-10.2); Chloride 106 mmol/L (98-107); Non-African American GFR(CKD) 52 (>60 ml/min/1.73 sqM); Potassium 5.6 mmol/L (3.5-5.1)
[2024-06-18 18:36] LABS: African American GFR (CKD) 60 (>60 ml/min/1.73 sqM); Anion Gap 3 mmol/L; Carbon Dioxide 40 mmol/L (22-30); Glucose 174 mg/dL (74-99); Sodium 149 mmol/L (137-145)
[2024-06-18 18:50] LABS: Blood Urea Nitrogen 120 mg/dL (9-20)
[2024-06-18 23:27] LABS: Glucose,Whole Blood 154 mg/dL (70-110)
[2024-06-19 04:32] LABS: HCT 25.3 % (39.0-53.0); Hypochromasia Moderate; MCH 29.4 pg (25.0-35.0); MCHC 31.6 g/dL (31.0-37.0); MCV 93.1 fL (80.0-100.0); Mean Platelet Volume 11.5; Platelet Count 214 k/uL (150-450); RBC 2.71 m/uL (4.30-5.90); RDW 15.5 % (11.5-15.5); WBC 14.4 k/uL (3.8-10.6)
[2024-06-19 05:10] LABS: African American GFR (CKD) 56 (>60 ml/min/1.73 sqM); Anion Gap 2 mmol/L; Calcium 7.9 mg/dL (8.4-10.2); Chloride 102 mmol/L (98-107); Glucose 156 mg/dL (74-99); Non-African American GFR(CKD) 49 (>60 ml/min/1.73 sqM); Sodium 144 mmol/L (137-145)
[2024-06-19 05:18] LABS: Glucose,Whole Blood 157 mg/dL (70-110)
[2024-06-19 05:25] LABS: ABG Base Excess 14.2 mmol/L; ABG Oxygen Saturation 97.6 % (94-97); ABG PCO2 59 mmHg (35-45); ABG PH 7.44 (7.35-7.45); ABG PO2 95 mmHg (83-108); ABG TCO2 42 mmol/L (19-24)
[2024-06-19 05:27] LABS: ABG HCO3 40 mmol/L (21-25); Allen Test Performed? no
[2024-06-19 05:42] LABS: Blood Urea Nitrogen 113 mg/dL (9-20)
[2024-06-19 05:58] LABS: Carbon Dioxide 37 mmol/L (22-30)
--- NOTE | 2024-06-19 06:11 | XR ---
EXAMINATION TYPE: XR chest 1V portable DATE OF EXAM: 06/19/2024 CLINICAL HISTORY: Difficulty breathing progress study. TECHNIQUE: Single AP portable semiupright view of the chest is obtained. COMPARISON: Chest x-ray from one day earlier and older studies. FINDINGS: Stable endotracheal and orogastric tubes. Stable left-sided subclavian central venous cath eter. Persistent bilateral multifocal increased opacities. Cardiac silhouette size is stable and within nor mal limits. Osseous structures are intact. IMPRESSION: Persistent bilateral multifocal acute infiltrates and/or atelectasis. No significant samayoa ge from one day earlier. [facility], , 06/19/2024 6:08 AM
--- NOTE | 2024-06-19 09:23 | P.PN ---
Subjective Patient is seen in follow-up for acute kidney injury. Renal function stable. Off Levophed. On IV Lasix. Nonoliguric. Receiving water flushes with tube feeds. Also on D5W. Sodium level 144 this morning. Potassium 5.0. Intubated. Vital signs are stable. Off Levophed. General: Resting in bed. HEENT: Intubated. NG tube noted. LUNGS: Scattered rhonchi. HEART: Rate and Rhythm are regular. ABDOMEN: Soft. Obese. EXTREMITITES: 2+ edema. Objective - Vital Signs Vital signs: Vital Signs Temp 99.7 F H 06/19/24 08:00 Pulse 92 06/19/24 09:00 Resp 34 H 06/19/24 09:00 BP 113/47 06/19/24 09:00 Pulse Ox 100 06/19/24 09:00 FiO2 50 06/19/24 08:00 Intake & Output 06/18/24 06/19/24 06/19/24 18:59 06:59 18:59 Intake Total 2925.397 3059.690 528.181 Output Total 3380 3825 150 Balance -454.603 -765.310 378.181 Weight 123 kg 121.1 kg Intake: IV 917 1053 81 0.9 Nomal Saline Pressure 42 78 6 Bag Dextrose 5% in Water 1, 825 975 75 000 ml @ 75 mls/hr IV . [id number] [facility] Rx#:[id number] cefTRIAXone 2 gm In 50 Sodium Chloride 0.9% 50 ml @ 100 mls/hr IVPB Q24HR [facility] Rx#:[id number] Intake, IV Titration 438.397 546.690 327.181 Amount Heparin Sod,Pork in 0.45% 241.793 244.853 NaCl 25,000 unit In 0.45 % NaCl 1 250ml.bag @ 8. 375 UNITS/KG/HR 10 mls/hr IV .Q24H [facility]QU[facility] Rx#: [id number] Norepinephrine 8 mg In 34.700 Sodium Chloride 0.9% 250 ml @ 0.03 MCG/KG/MIN 6. 589 mls/hr IV .Q24H [facility] Rx#:[id number] fentaNYL (PF). 1,000 mcg 75.533 19.826 In Sodium Chloride 0.9% 80 ml @ 0.5 MCG/KG/HR 6. 465 mls/hr IV .[id number] [facility] Rx#:[id number] propofoL 1,000 mg In 328.164 285.071 82.328 Empty Bag 1 bag @ 15 MCG/ KG/MIN 8.981 mls/hr IV . Q11H9M [facility]QU[facility] Rx#:[id number] Tube Feeding 370 260 20 Other 1200 1200 100 Output: Urine 3380 3825 150 Other: Voiding Method Indwelling Catheter Indwelling Catheter Indwelling Catheter ABP, PAP, CO, CI - Last Documented Arterial Blood Pressure 108/46 - Labs CBC & Chem 7: 06/19/24 04:03 06/19/24 04:03 Labs: Abnormal Lab Results - Last 24 Hours (Table) 06/18/24 06/18/24 06/18/24 Range/Units 12:01 12:03 16:51 WBC (3.8-10.6) k/uL RBC (4.30-5.90) m/uL Hgb (13.0-17.5) gm/dL Hct (39.0-53.0) % APTT 56.6 H (22.0-30.0) sec ABG pCO2 (35-45) mmHg ABG HCO3 (21-25) mmol/L ABG Total CO2 (19-24) mmol/L ABG O2 Saturation (94-97) % Hemoglobin (13.0-17.5) gm/dL Sodium 149 H (137-145) mmol/L Potassium 5.6 H (3.5-5.1) mmol/L Carbon Dioxide 40 H (22-30) mmol/L BUN 120 H* (9-20) mg/dL Creatinine 1.38 H (0.66-1.25) mg/dL Glucose 174 H (74-99) mg/dL POC Glucose (mg/dL) 168 H (70-110) mg/dL Calcium 7.9 L (8.4-10.2) mg/dL 06/18/24 06/18/24 06/19/24 Range/Units 17:50 23:24 04:03 WBC 14.4 H (3.8-10.6) k/uL RBC 2.71 L (4.30-5.90) m/uL Hgb 8.0 L (13.0-17.5) gm/dL Hct 25.3 L (39.0-53.0) % APTT (22.0-30.0) sec ABG pCO2 (35-45) mmHg ABG HCO3 (21-25) mmol/L ABG Total CO2 (19-24) mmol/L ABG O2 Saturation (94-97) % Hemoglobin (13.0-17.5) gm/dL Sodium (137-145) mmol/L Potassium (3.5-5.1) mmol/L Carbon Dioxide (22-30) mmol/L BUN (9-20) mg/dL Creatinine (0.66-1.25) mg/dL Glucose (74-99) mg/dL POC Glucose (mg/dL) 182 H 154 H (70-110) mg/dL Calcium (8.4-10.2) mg/dL 06/19/24 06/19/24 06/19/24 Range/Units 04:03 04:03 05:17 WBC (3.8-10.6) k/uL RBC (4.30-5.90) m/uL Hgb (13.0-17.5) gm/dL Hct (39.0-53.0) % APTT 69.6 H (22.0-30.0) sec ABG pCO2 (35-45) mmHg ABG HCO3 (21-25) mmol/L ABG Total CO2 (19-24) mmol/L ABG O2 Saturation (94-97) % Hemoglobin (13.0-17.5) gm/dL Sodium (137-145) mmol/L Potassium (3.5-5.1) mmol/L Carbon Dioxide 37 H (22-30) mmol/L BUN 113 H* (9-20) mg/dL Creatinine 1.45 H (0.66-1.25) mg/dL Glucose 156 H (74-99) mg/dL POC Glucose (mg/dL) 157 H (70-110) mg/dL Calcium 7.9 L (8.4-10.2) mg/dL 06/19/24 Range/Units 05:21 WBC (3.8-10.6) k/uL RBC (4.30-5.90) m/uL Hgb (13.0-17.5) gm/dL Hct (39.0-53.0) % APTT (22.0-30.0) sec ABG pCO2 59 H (35-45) mmHg ABG HCO3 40 H* (21-25) mmol/L ABG Total CO2 42 H (19-24) mmol/L ABG O2 Saturation 97.6 H (94-97) % Hemoglobin 7.9 L (13.0-17.5) gm/dL Sodium (137-145) mmol/L Potassium (3.5-5.1) mmol/L Carbon Dioxide (22-30) mmol/L BUN (9-20) mg/dL Creatinine (0.66-1.25) mg/dL Glucose (74-99) mg/dL POC Glucose (mg/dL) (70-110) mg/dL Calcium (8.4-10.2) mg/dL Microbiology - Last 24 Hours (Table) 06/15/24 09:30 Blood Culture - Preliminary Blood Assessment and Plan Plan: Assessment: 1. Acute kidney injury secondary to ATN secondary to septic shock. Creatinine peaked at 2.94 this admission and is fairly stable at 1.45 today. Nonoliguric. Baseline creatinine near 1. No hydronephrosis noted on kidney ultrasound. 2. Septic shock secondary to pneumonia. Blood culture positive for strep and staph. Sputum culture positive for strep and Natalie. Also influenza A positive. 3. Hyperkalemia secondary to acute kidney injury, hyperglycemia and catabolic state. Improved. 4. Hypernatremia from lack of oral water intake and free water diuresis. Improved with water flushes and D5W. 5. Acute hypoxic respiratory failure. Intubated. 6. Metabolic alkalosis with respiratory acidosis. Plan: Maintain IV Lasix. Maintain Lokelma. Maintain water flushes with tube feeds 400 cc every 4 hours. Stop D5W. Blood glucose control. Tube feeds with low potassium. Repeat BMP this evening. Continue to monitor renal function and urine output. Wean FiO2. Monitor bicarb. If continues to trend up, will give Diamox.
[2024-06-19 11:30] LABS: Glucose,Whole Blood 126 mg/dL (70-110)
--- NOTE | 2024-06-19 13:44 | P.GSCN ---
History of Present Illness Consult date: 06/19/24 History of present illness: CHIEF COMPLAINT: Shortness of breath HISTORY OF PRESENT ILLNESS: This is a 69-year-old male who presented with shortness of breath and evidence of acute hypoxic respiratory failure due to pneumonia and septic shock. Also influenza A positive. Patient remains in the ICU intubated and on mechanical ventilation. Patient intubated on June 10. Patient has been unable to be weaned from the vent. Surgical service consulted for tracheostomy and PEG tube placement. Patient is currently on IV heparin for A-fib. PAST MEDICAL HISTORY: Atrial fibrillation, hypertension PAST SURGICAL HISTORY: Cardiac ablation for atrial fibrillation MEDICATIONS: See below ALLERGIES: See below SOCIAL HISTORY: No illicit drug use. REVIEW OF SYSTEMS: CONSTITUTIONAL: Denies fever or chills. HEENT: Denies blurred vision, vision changes, or eye pain. Denies hemoptysis CARDIOVASCULAR: Denies chest pain or pressure. RESPIRATORY: No shortness of breath. GASTROINTESTINAL: See HPI for pertinent findings HEMATOLOGIC: Denies bleeding disorders. GENITOURINARY: Denies any blood in urine or increased urinary frequency. SKIN: Denies pruitis. Denies rash. PHYSICAL EXAM: VITAL SIGNS: Reviewed GENERAL: no acute distress. ABDOMEN: Soft. Nondistended. Nontender NEUROLOGIC: Intubated and sedated LABORATORY DATA: WBCs 14.4 Hgb 8.0 platelets 214 Sodium 144 potassium is 5.0 creatinine 1.45. Albumin 2.6 IMAGING: ASSESSMENT: 1. Acute hypoxic respiratory failure with pneumonia and influenza A 2. Severe protein calorie malnutrition PLAN: -Patient scheduled for tracheostomy and PEG tube placement tomorrow with Dr. Huynh -Hold tube feeds after midnight -Hold IV heparin starting at 7 AM tomorrow, 06/20/2024 Physician Algebra Teacher note has been reviewed by physician. Signing provider agrees with the documented findings, assessment, and plan of care. Past Medical History Past Medical History: Atrial Fibrillation, COPD, Hypertension Additional Past Medical History / Comment(s): History approximately fibrillation, post ablation, hypertension History of Any Multi-Drug Resistant Organisms: None Reported Past Surgical History: Heart Catheterization, Hernia Repair Additional Past Surgical History / Comment(s): Cardiac ablation for atrial fibrillation Past Anesthesia/Blood Transfusion Reactions: Unable to Obtain Past Psychological History: Unable to Obtain Smoking Status: Former smoker Past Alcohol Use History: Unable to Obtain Past Drug Use History: Unable to Obtain - Past Family History Father Additional Family Medical History / Comment(s): enlarged heart Mother Additional Family Medical History / Comment(s): skipped heart beat Medications and Allergies Home Medications Medication Instructions Recorded Confirmed Type Apixaban [Eliquis] 5 mg PO BID 02/15/22 02/01/24 History Losartan Potassium 100 mg PO DAILY 02/15/22 02/01/24 History Meloxicam [Mobic] 15 mg PO DAILY PRN 02/15/22 01/30/24 History Omeprazole 40 mg PO DAILY 02/15/22 02/01/24 History amLODIPine [Norvasc] 10 mg PO DAILY 05/12/22 02/01/24 History traMADol HCL 50 mg PO Q6H PRN 05/12/22 01/30/24 History Metoprolol Succinate (ER) [Toprol 50 mg PO DAILY #90 tab 02/01/24 Rx XL] Losartan Potassium [Cozaar] 100 mg PO DAILY 06/10/24 06/10/24 History Meloxicam [Mobic] 15 mg PO DAILY PRN 06/10/24 06/10/24 History Metoprolol Succinate (ER) [Toprol 50 mg PO DAILY 06/10/24 06/10/24 History Xl] Omeprazole [PriLOSEC] 40 mg PO DAILY 06/10/24 06/10/24 History amLODIPine [Norvasc] 10 mg PO DAILY PRN 06/10/24 06/10/24 History traMADol HCl [Ultram] 100 mg PO BID PRN 06/10/24 06/10/24 History Allergies Allergy/AdvReac Type Severity Reaction Status Date / Time No Known Allergies Allergy Verified 06/11/24 08:23 Surgical - Exam Vital Signs Temp Pulse Resp BP Pulse Ox 100 F H 84 45 H 138/94 88 L 06/10/24 13:57 06/10/24 13:57 06/10/24 13:57 06/10/24 13:57 06/10/24 13:57 Results - Labs 06/19/24 04:03 06/19/24 04:03 Abnormal Lab Results - Last 24 Hours (Table) 06/18/24 06/18/24 06/18/24 Range/Units 16:51 17:50 23:24 WBC (3.8-10.6) k/uL RBC (4.30-5.90) m/uL Hgb (13.0-17.5) gm/dL Hct (39.0-53.0) % APTT (22.0-30.0) sec ABG pCO2 (35-45) mmHg ABG HCO3 (21-25) mmol/L ABG Total CO2 (19-24) mmol/L ABG O2 Saturation (94-97) % Hemoglobin (13.0-17.5) gm/dL Sodium 149 H (137-145) mmol/L Potassium 5.6 H (3.5-5.1) mmol/L Carbon Dioxide 40 H (22-30) mmol/L BUN 120 H* (9-20) mg/dL Creatinine 1.38 H (0.66-1.25) mg/dL Glucose 174 H (74-99) mg/dL POC Glucose (mg/dL) 182 H 154 H (70-110) mg/dL Calcium 7.9 L (8.4-10.2) mg/dL 06/19/24 06/19/24 06/19/24 Range/Units 04:03 04:03 04:03 WBC 14.4 H (3.8-10.6) k/uL RBC 2.71 L (4.30-5.90) m/uL Hgb 8.0 L (13.0-17.5) gm/dL Hct 25.3 L (39.0-53.0) % APTT 69.6 H (22.0-30.0) sec ABG pCO2 (35-45) mmHg ABG HCO3 (21-25) mmol/L ABG Total CO2 (19-24) mmol/L ABG O2 Saturation (94-97) % Hemoglobin (13.0-17.5) gm/dL Sodium (137-145) mmol/L Potassium (3.5-5.1) mmol/L Carbon Dioxide 37 H (22-30) mmol/L BUN 113 H* (9-20) mg/dL Creatinine 1.45 H (0.66-1.25) mg/dL Glucose 156 H (74-99) mg/dL POC Glucose (mg/dL) (70-110) mg/dL Calcium 7.9 L (8.4-10.2) mg/dL 06/19/24 06/19/24 06/19/24 Range/Units 05:17 05:21 11:28 WBC (3.8-10.6) k/uL RBC (4.30-5.90) m/uL Hgb (13.0-17.5) gm/dL Hct (39.0-53.0) % APTT (22.0-30.0) sec ABG pCO2 59 H (35-45) mmHg ABG HCO3 40 H* (21-25) mmol/L ABG Total CO2 42 H (19-24) mmol/L ABG O2 Saturation 97.6 H (94-97) % Hemoglobin 7.9 L (13.0-17.5) gm/dL Sodium (137-145) mmol/L Potassium (3.5-5.1) mmol/L Carbon Dioxide (22-30) mmol/L BUN (9-20) mg/dL Creatinine (0.66-1.25) mg/dL Glucose (74-99) mg/dL POC Glucose (mg/dL) 157 H 126 H (70-110) mg/dL Calcium (8.4-10.2) mg/dL Microbiology - Last 24 Hours (Table) 06/15/24 09:30 Blood Culture - Preliminary Blood Diabetes panel 06/18/24 06/19/24 Range/Units 16:51 04:03 Sodium 149 H 144 (137-145) mmol/L Potassium 5.6 H 5.0 (3.5-5.1) mmol/L Chloride 106 102 (98-107) mmol/L Carbon Dioxide 40 H 37 H (22-30) mmol/L BUN 120 H* 113 H* (9-20) mg/dL Creatinine 1.38 H 1.45 H (0.66-1.25) mg/dL Glucose 174 H 156 H (74-99) mg/dL Calcium 7.9 L 7.9 L (8.4-10.2) mg/dL Calcium panel 06/18/24 06/19/24 Range/Units 16:51 04:03 Calcium 7.9 L 7.9 L (8.4-10.2) mg/dL Pituitary panel 06/18/24 06/19/24 Range/Units 16:51 04:03 Sodium 149 H 144 (137-145) mmol/L Potassium 5.6 H 5.0 (3.5-5.1) mmol/L Chloride 106 102 (98-107) mmol/L Carbon Dioxide 40 H 37 H (22-30) mmol/L BUN 120 H* 113 H* (9-20) mg/dL Creatinine 1.38 H 1.45 H (0.66-1.25) mg/dL Glucose 174 H 156 H (74-99) mg/dL Calcium 7.9 L 7.9 L (8.4-10.2) mg/dL Adrenal panel 06/18/24 06/19/24 Range/Units 16:51 04:03 Sodium 149 H 144 (137-145) mmol/L Potassium 5.6 H 5.0 (3.5-5.1) mmol/L Chloride 106 102 (98-107) mmol/L Carbon Dioxide 40 H 37 H (22-30) mmol/L BUN 120 H* 113 H* (9-20) mg/dL Creatinine 1.38 H 1.45 H (0.66-1.25) mg/dL Glucose 174 H 156 H (74-99) mg/dL Calcium 7.9 L 7.9 L (8.4-10.2) mg/dL
--- NOTE | 2024-06-19 13:52 | P.PN ---
Subjective Progress Note Date: 06/19/24 Hospital Course: Patient is a 69-year-old male with past medical history of A-fib status post a blation, hypertension. History obtained from chart review. Per ER note, EMS was called by patient's family for shortness of breath, family reported that multiple family members were sick in the house. They noted his SpO2 to be in 60s on placed him on CPAP with no improvement and he continued to breathe rapidly, spiking fever Initially, patient was placed on BiPAP for hypoxia, remained tachypneic and in respiratory distress despite BiPAP. Patient spent 1-1/2-hour on BiPAP with no improvement in his respiratory status, therefore, decision was made to intubate on 06/10, and was sedated, paralyzed, and transferred to ICU. Started on treatment for acute hypoxic respiratory failure secondary to bilateral pneumonia, influenza A pneumonia with cefepime, vancomycin; tamiflu, and solumedrol. Repeat chest x-ray showed diffuse pulmonary infiltrates and blood gases showed severe acidosis with pH of 7.05, patient was started on bicarb drip overnight, his blood pressure dropped requiring pressors. Hospital course complicated by oliguric renal failure. Nephrology consulted, kidney ultrasound and UA ordered, showed no obstruction or hydronephrosis. Nephrology also was following for hyperkalemia and hyponatremia, patient was started on Lokelma, continued on IV Lasix, recommended water flushes with tube feeds 400 cc every 4 hours. Blood cultures growing strep pneumo, antibiotics de-escalated to ceftriaxone 2 g daily. Cardiology consulted for A-fib with RVR, patient started on amiodarone drip, then switched to oral amiodarone starting as well as heparin gtt. Also hospital course was complicated by acute anemia, LDH 320, haptoglobin elevated, hematuria on UA.D-dimer elevated, but Fibrinogen normal, PTT elevated, PT/INR normal. 06/19, Levophed off, PEEP down to 12 Pertinent Imaging: Persistent infiltrates bilaterally, no significant changes Subjective: Intubated and sedated Vitals Signs Reviewed. General: [Intubated, sedated, obese Derm: [warm], [dry] Head: [atraumatic], [normocephalic], [symmetric] Eyes: [EOMI], [no lid lag], [anicteric sclera] Mouth: [no lip lesion], [mucus membranes moist] Cardiovascular: [S1S2 reg], [no murmur] Lungs bilateral air entry appreciated, diminished breath sounds in the bases Abdominal: [soft], [ nontender to palpation], [no guarding], [no appreciable organomegaly] Ext: [no gross muscle atrophy], [2-3+ bilateral lower extremity edema], [no contractures] Neuro: Intubated, sedated Psych: Sedated, sedated Data Reviewed Today: Pertinent Labs: WBC 14.4, hemoglobin 8.0, platelet count normal, VBG with pH of 7.44, pCO2 59, pO2 95, sodium 144, potassium 5.0, blood glucoses controlled, BUN 114, creatinine 1.45 Assessment and Plan: Septic shock secondary with Acute Hypoxemic Respiratory Failure Community-acquired strep pneumo pneumonia, influenza A infection Strep pneumo bacteremia -Vent settings per ICU: currently being weaned down PEEP 18-->16-->14-->12, FiO2 70%-->60%-->50% -Continue ceftriaxone 2 g daily, antibiotics SOT 06/10 -Remains on solumedrol 40 every 12 hours -Tamiflu has been discontinued 06/15 -Continue DuoNebs q4 hours -Possible trach and PEG if family agrees Steroid induced hyperglycemia Prediabetes -SSI, Accu-Cheks every 6 hours, - Levemir 25 units twice daily - Lispro 5 units q6h [facility] -qualifies for metformin on discharge if kidney function recovers enough, otherwise defer to outpatient follow up Acute Anemia -retic count is 1.1 (hypoproliferative) -FOBT ordered -LDH 320, haptoglobin high -repeat UA shows moderate blood, 59 RBC, occasional uric acid crystals -D-dimer elevated, but Fibrinogen normal, PTT elevated, PT/INR normal -consider discontinuing heparin gtt if continued drop in hgb Acute Kidney Injury secondary to ATN, initially oliguric Hyperkalemia resolved Hypernatremia secondary to free water deficit Metabolic Alkalosis -Nephrology following -Goal potassium tube feeding -Lasix at 80mg IV q12hr -BUN elevated, but Cr improving -Na improving, FWF - 400cc q4h, D5 infusion stopped -Monitor for bicarb, if continues to trend up, nephrology considering Diamox Persistent A-fib status post ablation : -Continue heparin drip, -Amiodarone p.o. 400 twice daily, Lopressor 25 twice daily. -Cardiology following History of hypertension: GERD: Left forehead lipoma Obesity, Class III -Home medications reviewed and reconciled GI PPx: Stress ulcer prophylaxis with IV Protonix CODE STATUS: default full code DVT prophylaxis: Heparin drip Anticipated discharge date: tbd Anticipated discharge place: tbd Objective - Vital Signs Vital signs: Vital Signs Temp 99.0 F 06/19/24 12:00 Pulse 90 06/19/24 12:00 Resp 35 H 06/19/24 12:00 BP 119/49 06/19/24 12:00 Pulse Ox 99 06/19/24 12:00 FiO2 50 06/19/24 12:00 Intake & Output 06/18/24 06/19/24 06/19/24 18:59 06:59 18:59 Intake Total 2925.397 3059.690 1339.111 Output Total 3380 3825 1750 Balance -454.603 -765.310 -410.889 Weight 123 kg 121.1 kg Intake: IV 917 1053 145 .9 @ KVO 40 0.9 Nomal Saline Pressure 42 78 30 Bag Dextrose 5% in Water 1, 825 975 75 000 ml @ 75 mls/hr IV . [id number] [facility] Rx#:[id number] cefTRIAXone 2 gm In 50 Sodium Chloride 0.9% 50 ml @ 100 mls/hr IVPB Q24HR [facility] Rx#:[id number] Intake, IV Titration 438.397 546.690 594.111 Amount Heparin Sod,Pork in 0.45% 241.793 244.853 NaCl 25,000 unit In 0.45 % NaCl 1 250ml.bag @ 8. 375 UNITS/KG/HR 10 mls/hr IV .Q24H [facility] Rx#: [id number] Norepinephrine 8 mg In 34.700 Sodium Chloride 0.9% 250 ml @ 0.03 MCG/KG/MIN 6. 589 mls/hr IV .Q24H [facility] Rx#:[id number] fentaNYL (PF). 1,000 mcg 75.533 19.826 83.614 In Sodium Chloride 0.9% 80 ml @ 0.5 MCG/KG/HR 6. 465 mls/hr IV .[id number] [facility] Rx#:[id number] propofoL 1,000 mg In 328.164 285.071 265.644 Empty Bag 1 bag @ 15 MCG/ KG/MIN 8.981 mls/hr IV . [id number] [facility] Rx#:[id number] Tube Feeding 370 260 100 Other 1200 1200 500 Output: Urine 3380 3825 1750 Other: Voiding Method Indwelling Catheter Indwelling Catheter Indwelling Catheter ABP, PAP, CO, CI - Last Documented Arterial Blood Pressure 117/49 - Labs CBC & Chem 7: 06/19/24 04:03 06/19/24 04:03 Labs: Abnormal Lab Results - Last 24 Hours (Table) 06/18/24 06/18/24 06/18/24 Range/Units 16:51 17:50 23:24 WBC (3.8-10.6) k/uL RBC (4.30-5.90) m/uL Hgb (13.0-17.5) gm/dL Hct (39.0-53.0) % APTT (22.0-30.0) sec ABG pCO2 (35-45) mmHg ABG HCO3 (21-25) mmol/L ABG Total CO2 (19-24) mmol/L ABG O2 Saturation (94-97) % Hemoglobin (13.0-17.5) gm/dL Sodium 149 H (137-145) mmol/L Potassium 5.6 H (3.5-5.1) mmol/L Carbon Dioxide 40 H (22-30) mmol/L BUN 120 H* (9-20) mg/dL Creatinine 1.38 H (0.66-1.25) mg/dL Glucose 174 H (74-99) mg/dL POC Glucose (mg/dL) 182 H 154 H (70-110) mg/dL Calcium 7.9 L (8.4-10.2) mg/dL 06/19/24 06/19/24 06/19/24 Range/Units 04:03 04:03 04:03 WBC 14.4 H (3.8-10.6) k/uL RBC 2.71 L (4.30-5.90) m/uL Hgb 8.0 L (13.0-17.5) gm/dL Hct 25.3 L (39.0-53.0) % APTT 69.6 H (22.0-30.0) sec ABG pCO2 (35-45) mmHg ABG HCO3 (21-25) mmol/L ABG Total CO2 (19-24) mmol/L ABG O2 Saturation (94-97) % Hemoglobin (13.0-17.5) gm/dL Sodium (137-145) mmol/L Potassium (3.5-5.1) mmol/L Carbon Dioxide 37 H (22-30) mmol/L BUN 113 H* (9-20) mg/dL Creatinine 1.45 H (0.66-1.25) mg/dL Glucose 156 H (74-99) mg/dL POC Glucose (mg/dL) (70-110) mg/dL Calcium 7.9 L (8.4-10.2) mg/dL 06/19/24 06/19/24 06/19/24 Range/Units 05:17 05:21 11:28 WBC (3.8-10.6) k/uL RBC (4.30-5.90) m/uL Hgb (13.0-17.5) gm/dL Hct (39.0-53.0) % APTT (22.0-30.0) sec ABG pCO2 59 H (35-45) mmHg ABG HCO3 40 H* (21-25) mmol/L ABG Total CO2 42 H (19-24) mmol/L ABG O2 Saturation 97.6 H (94-97) % Hemoglobin 7.9 L (13.0-17.5) gm/dL Sodium (137-145) mmol/L Potassium (3.5-5.1) mmol/L Carbon Dioxide (22-30) mmol/L BUN (9-20) mg/dL Creatinine (0.66-1.25) mg/dL Glucose (74-99) mg/dL POC Glucose (mg/dL) 157 H 126 H (70-110) mg/dL Calcium (8.4-10.2) mg/dL Microbiology - Last 24 Hours (Table) 06/15/24 09:30 Blood Culture - Preliminary Blood
--- NOTE | 2024-06-19 14:10 | P.PN ---
Subjective Progress Note Date: 06/19/24 Principal diagnosis: Acute hypoxic respiratory failure with sepsis secondary to streptococcal pneumonia 69-year-old male patient came into the emergency department for shortness of breath. According to the significant other, the patient was sick approximately a week ago and his condition has been progressively getting worse. The patient has been falling. He has been having difficulties in keeping himself up and moving around over the past 24 hours. Based on that, he came into the emergency department. His initial pulse ox was 60% and he was placed on a BiPAP and rapi dly following that, the patient was intubated and placed on the mechanical ventilator. Chest x-ray at time of admission showed extensive pneumonia with left upper lobe consolidation and air bronchograms and bibasilar pulmonary infiltrates. Patient tested positive for influenza A. Postintubation, the patient's blood gases showed a pH of 7.36 with a pCO2 of 43 and pO2 of 60. Nevertheless, by the time he arrived to the ICU, the patient was again hypoxic with a pulse ox of 78%. Necessary ventilator changes were done and currently the patient is in a rate of 26, tidal volume of 375, PEEP of 24 with an FiO2 of 100% and expiratory pause of 0.2 ms. The blood gas showed a pH of 7.16 with a pCO2 of 77 and pO2 of 66. Triple-lumen catheter was established in the left IJ. Arterial line was also established. The patient is currently on Tamiflu. He was also started on broad-spectrum antibiotics utilizing a combination of cefepime Zithromax and vancomycin. Started on systemic steroids. Hem odynamically stable. No hypotension. Cardiac rhythm is sinus. According to the significant other, he has history of paroxysmal atrial fibrillation and the patient has undergone ablation. Cardiac rhythm is sinus. He also has hypertension. He is a former smoker. Does not utilize any form of oxygen therapy or inhalers on outpatient basis. No history of bronchial asthma. No history of COPD. No history of any congestion or heart failure. The white cell count of 15.3 with hemoglobin 15.8 and a platelet count of 265. Normal coagulation profile. BUN is 63 with a creatinine 1.42 and a sodium levels at 140 with a potassium level of 4.5. Initial lactic acid level was at 3.8 and dropped down to 2.0. The patient is currently on normal saline at rate of 100 cc an hour. Furthermore, he is sedated with propofol and paralytics with Bumex. In the intensive care unit. 06/14/2024, the patient is being seen for a follow-up. Remains intubated on the mechanical ventilator. This morning, the patient is off paralytics and the patient remains on propofol running at 65 mcg/kg/min. Remains on mechanical ventilator assist-control mode rate of 34, tidal volume of 450, FiO2 of 70% with a PEEP of 18. Blood gas showed a pH of 7.28 with a pCO2 of 59 and pO2 of 89. The patient remains hypotensive and remains on norepinephrine. The patient will be taken off vasopressin. Norepinephrine is running at 0.15 mcg/kg/min. Chest x-ray still showing stable bilateral pulmonary consolidation more extensive in the right lower lobe and the left upper lobe. Remains atrial fibrillation. Remains on IV Rocephin. Continues to receive enteral feeding for nutritional support. Remains on IV heparin regarding his ongoing atrial fibrillation. The WBC count is at 18, still elevated with a hemoglobin 10.3 and a platelet count of 193. Sodium is at 141, potassium is 5.1, bicarb is 27, BUN is 124 and creatinine is at 2.76. Despite ongoing renal failure, the patient is producing urine output. The patient was given Lasix and he continues to receive Lasix 80 mg on a daily basis. Rest of the medications remain unchanged. Completing course of Tamiflu. Remains on IV Rocephin. Remains on a combination of metoprolol 25 mg twice daily and amiodarone 4 mg p.o. twice daily for rate control. 06/15/2024, the patient is being seen for a follow-up. Remains intubated on mechanical ventilator. Remains sedated on propofol. Off paralytics and slightly asynchronous mechanical ventilator. May need fentanyl. Will continue monitoring his progress. Remains intubated on mechanical ventilator assist- control mode at rate of 36, tidal volume of 450, FiO2 of 70% with a PEEP of 18. Blood gas showed pH of 7.28 with a pCO2 of 64 pO2 of 106. Peak airway pressure is 36. Remains on norepinephrine running at 0.2 mcg/kg/min. Remains on vital HP at rate of 35 cc an hour. Follow-up chest x-ray done today shows improvement in the left upper lobe and right lower lobe pulmonary infiltrates. White cell count is at 19 with a hemoglobin 9.6 and a platelet count of 217. Sodium is at 146, potassium is at 5.7, chloride is 108, BUN is 140 with a creatinine of 2.5. Blood sugar is 200. Calcium level is at 7.4. Did have a episode of fever with a Tmax of 101.3. Remains on Lasix 80 mg IV every 24 hours. Fluid balance is +1.1 L over the past 24 hours and the patient has produced more than 2 L of urine output for yesterday. On 06/16/2024, patient is being seen for a follow-up. The patient remains on mechanical ventilator, sedated with propofol 65 mcg/kg/min and fentanyl at 1 mcg/kg/h. Chest x-ray findings are essentially stable and shows ongoing improvement in bilateral pulmonary infiltrates. Nevertheless, the patient remains intubated on mechanical ventilator. On today's evaluation, he is on assist-control at rate of 34, tidal volume of 450, FiO2 of 50% with a PEEP of 16. Blood gas showed a pH of 7.34 with pCO2 of 64 and pO2 of 79. The patient hemodynamically remains in atrial fibrillation, controlled rate. Vasopressin has been discontinued and norepinephrine has been weaned down to 0.07 mcg/kg/min. Remains on IV Lasix 80 mg every 12 hours. Fluid balance is -1.8 L over the past 24 hours. Remains on IV heparin. Remains on Lantus insulin 25 units daily and vital high-protein at rate of 35 cc an hour. Blood work from today shows a white cell count of 18, hemoglobin 9.1 and platelet count of 206. Sodium is at 151, K is at 5.8, BUN is at 143 with a creatinine of 2.3. Blood sugars at 195. Magnesium level is at 3.8. Calcium level is at 7.3. Patient was seen today on 06/17/2024, remains in the ICU, intubated and mechanically ventilated. Patient is still requiring ventilatory support still requiring hemodynamic support/norepinephrine and he remains quite ill, not ready for any trials of extubation. Patient is on assist-control rate of 34 tidal volume 450 FiO2 50% and PEEP of 16 ABG showed a pO2 of 99 pCO2 64 pH of 7.36. Patient is requiring norepinephrine at 0.03 mcg/kg/min propofol 65 mcg/kg/min Fentanyl 1 mcg/kg/h. Patient is receiving vital HP 35/35. Antibiotics lara he remains on Rocephin patient still on diuretics, seen by nephrology today, and he was placed on Lokelma and insulin was added for hyperkalemia. Patient was initially intubated on 06/10 and today is his seventh day of ventilatory support. Based on physical examination and based on his chest x-ray findings, he remains quite ill and he is not ready for any trials of weaning. Chest x-ray remains quite abnormal and on physical examination he has crackles rhonchi and wheezes noted bilaterally. Patient continues to have leukocytosis with WBC count of 17 hemoglobin is 8.3 D-dimer is 2.25. Sodium is 153 potassium 5.7 patient is on Lokelma, nephrology increased his free water via orogastric tube. Renal profile is abnormal with a BUN of 143 creatinine 2.03 liver enzymes are basically unremarkable LDH however is 320. Chest x-ray showed persistent bilateral multifocal infiltrates and/or atelectasis. But I believe this is mostly infiltrates. Patient was evaluated today on 06/18/2024, remains in the ICU remains intubated and mechanically ventilated still requiring norepinephrine at 0.07 micrograms per kilo per minute for low blood pressure patient remains on assist-control rate of 34 tidal volume 450 FiO2 50% PEEP is 16 and I cut it down to 14 today. ABG showed a pO2 of 100 pCO2 64 pH of 7.38 hence no other changes were made in ventilator settings. Drips lara patient remains on fentanyl at 1 mcg/kg/h propofol 65 mg/kg/min heparin drip, norepinephrine at 0.07 D5W at 75 cc/h Rocephin was renewed today he remains on Lasix 80 mg IV push every 12 hours. Patient is basically about the same, not much has changed between yesterday and today. Chest x-ray continues to show evidence of bilateral multifocal infiltrates and/or atelectasis. No significant change noted in chest x-ray compared to yesterday. Continues to have leukocytosis with WBC of 17.5 hemoglobin is 8.2 sodium is a bit better with sodium of 150 potassium 6.1 being addressed by nephrology BUN is 131 creatinine 1.61 bicarb is 39. Blood sugar is 181. Patient is in sinus rhythm, he is on amiodarone at 400 mg p.o. twice daily, remains on Rocephin remains on Lasix 80 twice daily, on insulin, and on updrafts as well as lactulose. Clearly considering the patient continues to have significantly abnormal chest x-ray and still requiring high PEEP, not ready for any weaning at this point. Patient was seen today on 06/19/2024, remains in the ICU, intubated and mechanically ventilated. Patient could not have mental status assessment yesterday as he seems to get extremely agitated, restless, and hypertensive tachypneic and tachycardic once he is off sedation for mental status assessment. Patient remains on assist-control rate of 34, tidal volume 450 FiO2 50% and PEEP was 14 and I cut it down to 12 today. His ABG showed a pO2 of 95 pCO2 59 pH of 7.44. Remains on fentanyl at 0.5 mcg/kg/h heparin drip, propofol at 55 mcg/kg/min IV fluid 0.9 normal saline at 10 cc/h he is also on Nepro 20/2 0/enteral feeding. Patient has been on Rocephin all along, chest x-ray continues to show multifocal infiltrates, hence I have ordered repeat sputum culture on this patient, may have to consider even bronchoscopy and BAL. In the meantime I believe it is best to continue the same course of treatment and continue supportive care measures as well as mechanical ventilation. Obviously the patient is not anywhere near weaning hence I am recommending surgical evaluation for possible trach and PEG later this week. Yesterday I had a chance to discuss his condition with his family at bedside. WBC count remains high 14.4 hemoglobin is 8 ABG as noted earlier. Electrolytes are better sodium down to 144 potassium 5 BUN remains high at 113 creatinine 1.45 Objective - Vital Signs Vital signs: Vital Signs Temp 99.0 F 06/19/24 12:00 Pulse 90 06/19/24 12:00 Resp 35 H 06/19/24 12:00 BP 119/49 06/19/24 12:00 Pulse Ox 99 06/19/24 12:00 FiO2 50 06/19/24 12:00 Intake & Output 06/18/24 06/19/24 06/19/24 18:59 06:59 18:59 Intake Total 2925.397 3059.690 1339.111 Output Total 3380 3825 1750 Balance -454.603 -765.310 -410.889 Weight 123 kg 121.1 kg Intake: IV 917 1053 145 .9 @ KVO 40 0.9 Nomal Saline Pressure 42 78 30 Bag Dextrose 5% in Water 1, 825 975 75 000 ml @ 75 mls/hr IV . [id number] JACQUES Rx#:[id number] cefTRIAXone 2 gm In 50 Sodium Chloride 0.9% 50 ml @ 100 mls/hr IVPB Q24HR JACQUES Rx#:[id number] Intake, IV Titration 438.397 546.690 594.111 Amount Heparin Sod,Pork in 0.45% 241.793 244.853 NaCl 25,000 unit In 0.45 % NaCl 1 250ml.bag @ 8. 375 UNITS/KG/HR 10 mls/hr IV .Q24H JACQUES Rx#: [id number] Norepinephrine 8 mg In 34.700 Sodium Chloride 0.9% 250 ml @ 0.03 MCG/KG/MIN 6. 589 mls/hr IV .Q24H JACQUES Rx#:[id number] fentaNYL (PF). 1,000 mcg 75.533 19.826 83.614 In Sodium Chloride 0.9% 80 ml @ 0.5 MCG/KG/HR 6. 465 mls/hr IV .[id number] JACQUES Rx#:[id number] propofoL 1,000 mg In 328.164 285.071 265.644 Empty Bag 1 bag @ 15 MCG/ KG/MIN 8.981 mls/hr IV . [id number] JACQUES Rx#:[id number] Tube Feeding 370 260 100 Other 1200 1200 500 Output: Urine 3380 3825 1750 Other: Voiding Method Indwelling Catheter Indwelling Catheter Indwelling Catheter ABP, PAP, CO, CI - Last Documented Arterial Blood Pressure 117/49 - Exam General: Revealed 69-year-old white male obese intubated and mechanically ventilated Derm: No rashes Head: Atraumatic normocephalic Eyes: PERRLA, EOMI, nonicteric, periorbital swelling is noted Mouth: Normal mucous membranes, endotracheal tube and orogastric tube are intact. Cardiovascular: Distant S1-S2, no S3 gallop, no murmur Lungs: Diminished breath sound bilaterally scattered rhonchi noted Abdominal: Obese soft nontender no rebound no guarding Ext: 3+ bipedal edema Neuro: Could not assess, patient is intubated and sedated Psych: Could not assess patient is intubated and sedated [ - Labs CBC & Chem 7: 06/19/24 04:03 06/19/24 04:03 Labs: Abnormal Lab Results - Last 24 Hours (Table) 06/18/24 06/18/24 06/18/24 Range/Units 16:51 17:50 23:24 WBC (3.8-10.6) k/uL RBC (4.30-5.90) m/uL Hgb (13.0-17.5) gm/dL Hct (39.0-53.0) % APTT (22.0-30.0) sec ABG pCO2 (35-45) mmHg ABG HCO3 (21-25) mmol/L ABG Total CO2 (19-24) mmol/L ABG O2 Saturation (94-97) % Hemoglobin (13.0-17.5) gm/dL Sodium 149 H (137-145) mmol/L Potassium 5.6 H (3.5-5.1) mmol/L Carbon Dioxide 40 H (22-30) mmol/L BUN 120 H* (9-20) mg/dL Creatinine 1.38 H (0.66-1.25) mg/dL Glucose 174 H (74-99) mg/dL POC Glucose (mg/dL) 182 H 154 H (70-110) mg/dL Calcium 7.9 L (8.4-10.2) mg/dL 06/19/24 06/19/24 06/19/24 Range/Units 04:03 04:03 04:03 WBC 14.4 H (3.8-10.6) k/uL RBC 2.71 L (4.30-5.90) m/uL Hgb 8.0 L (13.0-17.5) gm/dL Hct 25.3 L (39.0-53.0) % APTT 69.6 H (22.0-30.0) sec ABG pCO2 (35-45) mmHg ABG HCO3 (21-25) mmol/L ABG Total CO2 (19-24) mmol/L ABG O2 Saturation (94-97) % Hemoglobin (13.0-17.5) gm/dL Sodium (137-145) mmol/L Potassium (3.5-5.1) mmol/L Carbon Dioxide 37 H (22-30) mmol/L BUN 113 H* (9-20) mg/dL Creatinine 1.45 H (0.66-1.25) mg/dL Glucose 156 H (74-99) mg/dL POC Glucose (mg/dL) (70-110) mg/dL Calcium 7.9 L (8.4-10.2) mg/dL 06/19/24 06/19/24 06/19/24 Range/Units 05:17 05:21 11:28 WBC (3.8-10.6) k/uL RBC (4.30-5.90) m/uL Hgb (13.0-17.5) gm/dL Hct (39.0-53.0) % APTT (22.0-30.0) sec ABG pCO2 59 H (35-45) mmHg ABG HCO3 40 H* (21-25) mmol/L ABG Total CO2 42 H (19-24) mmol/L ABG O2 Saturation 97.6 H (94-97) % Hemoglobin 7.9 L (13.0-17.5) gm/dL Sodium (137-145) mmol/L Potassium (3.5-5.1) mmol/L Carbon Dioxide (22-30) mmol/L BUN (9-20) mg/dL Creatinine (0.66-1.25) mg/dL Glucose (74-99) mg/dL POC Glucose (mg/dL) 157 H 126 H (70-110) mg/dL Calcium (8.4-10.2) mg/dL Microbiology - Last 24 Hours (Table) 06/15/24 09:30 Blood Culture - Preliminary Blood Assessment and Plan Assessment: Impression: Acute hypoxic respiratory failure secondary to bilateral pneumococcal pneumonia and septic shock. Mechanically ventilated, patient is not requiring pressors today he was on norepinephrine yesterday. Bilateral pneumococcal pneumonia following an acute influenza A infection. Septic shock, second pneumococcal pneumonia with bacteremia. Acute kidney injury,, likely acute tubular necrosis being followed by nephrology Acute leukocytosis, white cell count is still elevated, secondary to above mostly sepsis and septic shock Atrial fibrillation with rapid ventricular response, currently on amiodarone .. Remains on IV heparin. History of hypertension Hypernatremia secondary to free water deficit, improving with free water Recommendation: Continue ventilatory support, patient has been intubated since 10 June not making any significant progress to speak of to consider any weaning trials. Family was updated on his condition and made aware that if no improvement today and tomorrow, may have to start addressing tracheostomy and PEG tube placement and they seem to be fine with the recommendation. Continue hemodynamic support place back on norepinephrine if necessary. Cut down on free water since the sodium is now back to normal Continue Lasix Continue to address and correct daily abnormal electrolytes. Patient completed a course of Tamiflu Continue IV Solu-Medrol Continue Rocephin/renewed yesterday, and I am recommending repeat sputum cultures Continue enteral feeding for nutritional support Continue GI and DVT prophylaxis Continue insulin Continue oral amiodarone 400 mg p.o. twice a day, continue heparin Patient is not ready for any form of weaning at this point could not even hold sedation to assess his mental status, remains extremely and critically ill. Patient remains critically ill,Critical care time is 33 minutes, family was updated on his condition yesterday. Time with Patient: Greater than 30
--- NOTE | 2024-06-19 14:58 | P.PN ---
Subjective The patient is a 69-year-old male who presented with symptoms of progressive dyspnea, diagnosed with pneumonia and influenza A, requiring mechanical ventilation. Cardiology consultation was requested because of atrial fibrillation. The patient is intubated and sedated. He has a history of atrial fibrillation, status post ablation in January 2024. He was in sinus mechanism on presentation and back in atrial fibrillation at this time with episode of rapid ventricle response. He is on vasopressors. He had an echocardiogram that showed a preserved systolic function, the study was technically difficult. The patient has been anticoagulated as an outpatient. Her chest x-ray shows severe infiltration bilaterally consistent with a pneumonia. Presentation he had evidence of acute renal injury and hypotension related to sepsis. He has been initiated on amiodarone and he is on vasopressin in addition to norepinephrine June 13: The patient remains intubated and sedated. He had episodes of paroxysmal atrial fibrillation. He is in sinus mechanism at this time. He continues to be on norepinephrine. His urine output is stable. His chest x-ray shows bilateral infiltrate consistent with his pneumonia. There is no evidence of ventricular ectopic activity.There is significant worsening of his renal function with a BUN up to 101 with a creatinine of 2.94. Tolerating tube feeding June 14: The patient remains intubated and sedated. He is in atrial fibrillation with controlled ventricular response. He is on the lower dose of norepinephrine. His urine output has been stable and he is tolerating tube feeding. He had no evidence of ventricular ectopic activity. He continues to have significant infiltrate on his chest x-ray. June 15: The patient remains intubated and sedated, he is on the lower PEEP. He jeff nues to be in atrial fibrillation with controlled ventricular response. His urinary output has improved. There is no evidence of ventricular ectopic activity. His chest x-ray continues to show evidence of infiltrate bilaterally. Continues to be on IV heparin. He has worsening of his renal functions. June 16: The patient remains intubated and sedated on PEEP of 16. His dose of Levophed has been decreased. He continues to be on IV diuretics with good urine output. He is in atrial fibrillation with controlled ventricular response but no evidence of ventricular ectopic activity. His chest x-ray continues to show bilateral infiltrate. 06/17 patient seen and examined. Patient remains intubated and sedated. Per nursing has been able to be weaned somewhat on the norepinephrine. Still requiring 50% FiO2 with PEEP of 16. He is getting free water flushes through his OG tube. Good urine output with approximately 100 mL per hour. Creatinine mildly improving to 1.9 and BUN relatively stable. He remains in A. fib with heart rates 80s to 100s. hemoglobin downtrending to 8.3. Per nursing some bruising around his left subclavian central line. 06/18 Patient seen and examined. Patient remains intubated and sedated. Currently undergoing spontaneous breathing trial. Remains in A. fib with heart rates in the 90s to 100s. Creatinine mildly improving to 1.6 however significantly elevated BUN 131. Potassium originally 6.1 however improved to 5.1. He is receiving free water flushes through his G-tube with mild improvement in sodium to 150. Hemoglobin relatively stable at 8.2. Remains on a heparin drip. 06/19 Patient seen and examined. Patient remains intubated and sedated with rates of 34 and PEEP of 12 with FiO2 50%. Remains in A-fib with heart rates in the 90s to 100s. Creatinine improved to 1.4 and sodium improved to 144. CVP readings in the 15 range. Medications: IV heparin, Rocephin, insulin, methylprednisolone, metoprolol tartrate 25 mg twice a day, Tamiflu, vancomycin, amiodarone 400 mg twice a day, Lasix 80 mg IV twice daily, amiodarone 400 mg twice a day PHYSICAL EXAMINATION: vitals reviewed, intubated and sedated LUNGS: Clear to auscultation anteriorly HEART: Irregular rate and rhythm, S1, S2. No S3. Systolic ejection murmur ABDOMEN: Soft, positive bowel sounds, no organomegaly EXTREMETIES: +1 edema IMPRESSION: 1. Acute respiratory failure with bilateral pneumonia and influenza A requiring mechanical ventilation 2. Paroxysmal atrial fibrillation status post ablation in 2023, back in atrial fibrillation 3. Acute renal injury related to the sepsis and hypotension,, good urine output 4. Leukocytosis 5. Anemia 6. Septic shock on vasoperssors PLAN: Continue amiodarone 400mg bid for now with increased HR's. Hemoglobin appears stable and continue with heparin drip Elevated CVP and continue with diuresis as able. Patient does have significantly increased BUN to creatinine however slowly improving. Continue current supportive care and weaning sedation/ventilator as able. Objective - Vital Signs Vital signs: Vital Signs Temp 99.0 F 06/19/24 12:00 Pulse 90 06/19/24 12:00 Resp 35 H 06/19/24 12:00 BP 119/49 06/19/24 12:00 Pulse Ox 99 06/19/24 12:00 FiO2 50 06/19/24 12:00 Intake & Output 06/18/24 06/19/24 06/19/24 18:59 06:59 18:59 Intake Total 2925.397 3059.690 1339.111 Output Total 3380 3825 1750 Balance -454.603 -765.310 -410.889 Weight 123 kg 121.1 kg Intake: IV 917 1053 145 .9 @ KVO 40 0.9 Nomal Saline Pressure 42 78 30 Bag Dextrose 5% in Water 1, 825 975 75 000 ml @ 75 mls/hr IV . [id number] [facility] Rx#:[id number] cefTRIAXone 2 gm In 50 Sodium Chloride 0.9% 50 ml @ 100 mls/hr IVPB Q24HR [facility] Rx#:[id number] Intake, IV Titration 438.397 546.690 594.111 Amount Heparin Sod,Pork in 0.45% 241.793 244.853 NaCl 25,000 unit In 0.45 % NaCl 1 250ml.bag @ 8. 375 UNITS/KG/HR 10 mls/hr IV .Q24H [facility] Rx#: [id number] Norepinephrine 8 mg In 34.700 Sodium Chloride 0.9% 250 ml @ 0.03 MCG/KG/MIN 6. 589 mls/hr IV .Q24H [facility] Rx#:[id number] fentaNYL (PF). 1,000 mcg 75.533 19.826 83.614 In Sodium Chloride 0.9% 80 ml @ 0.5 MCG/KG/HR 6. 465 mls/hr IV .[id number] [facility] Rx#:[id number] propofoL 1,000 mg In 328.164 285.071 265.644 Empty Bag 1 bag @ 15 MCG/ KG/MIN 8.981 mls/hr IV . Q11H9M [facility] Rx#:[id number] Tube Feeding 370 260 100 Other 1200 1200 500 Output: Urine 3380 3825 1750 Other: Voiding Method Indwelling Catheter Indwelling Catheter Indwelling Catheter ABP, PAP, CO, CI - Last Documented Arterial Blood Pressure 117/49 - Labs CBC & Chem 7: 06/19/24 04:03 06/19/24 04:03 Labs: Abnormal Lab Results - Last 24 Hours (Table) 06/18/24 06/18/24 06/18/24 Range/Units 16:51 17:50 23:24 WBC (3.8-10.6) k/uL RBC (4.30-5.90) m/uL Hgb (13.0-17.5) gm/dL Hct (39.0-53.0) % APTT (22.0-30.0) sec ABG pCO2 (35-45) mmHg ABG HCO3 (21-25) mmol/L ABG Total CO2 (19-24) mmol/L ABG O2 Saturation (94-97) % Hemoglobin (13.0-17.5) gm/dL Sodium 149 H (137-145) mmol/L Potassium 5.6 H (3.5-5.1) mmol/L Carbon Dioxide 40 H (22-30) mmol/L BUN 120 H* (9-20) mg/dL Creatinine 1.38 H (0.66-1.25) mg/dL Glucose 174 H (74-99) mg/dL POC Glucose (mg/dL) 182 H 154 H (70-110) mg/dL Calcium 7.9 L (8.4-10.2) mg/dL 06/19/24 06/19/24 06/19/24 Range/Units 04:03 04:03 04:03 WBC 14.4 H (3.8-10.6) k/uL RBC 2.71 L (4.30-5.90) m/uL Hgb 8.0 L (13.0-17.5) gm/dL Hct 25.3 L (39.0-53.0) % APTT 69.6 H (22.0-30.0) sec ABG pCO2 (35-45) mmHg ABG HCO3 (21-25) mmol/L ABG Total CO2 (19-24) mmol/L ABG O2 Saturation (94-97) % Hemoglobin (13.0-17.5) gm/dL Sodium (137-145) mmol/L Potassium (3.5-5.1) mmol/L Carbon Dioxide 37 H (22-30) mmol/L BUN 113 H* (9-20) mg/dL Creatinine 1.45 H (0.66-1.25) mg/dL Glucose 156 H (74-99) mg/dL POC Glucose (mg/dL) (70-110) mg/dL Calcium 7.9 L (8.4-10.2) mg/dL 06/19/24 06/19/24 06/19/24 Range/Units 05:17 05:21 11:28 WBC (3.8-10.6) k/uL RBC (4.30-5.90) m/uL Hgb (13.0-17.5) gm/dL Hct (39.0-53.0) % APTT (22.0-30.0) sec ABG pCO2 59 H (35-45) mmHg ABG HCO3 40 H* (21-25) mmol/L ABG Total CO2 42 H (19-24) mmol/L ABG O2 Saturation 97.6 H (94-97) % Hemoglobin 7.9 L (13.0-17.5) gm/dL Sodium (137-145) mmol/L Potassium (3.5-5.1) mmol/L Carbon Dioxide (22-30) mmol/L BUN (9-20) mg/dL Creatinine (0.66-1.25) mg/dL Glucose (74-99) mg/dL POC Glucose (mg/dL) 157 H 126 H (70-110) mg/dL Calcium (8.4-10.2) mg/dL Microbiology - Last 24 Hours (Table) 06/15/24 09:30 Blood Culture - Preliminary Blood
[2024-06-19 18:10] LABS: Glucose,Whole Blood 140 mg/dL (70-110)
[2024-06-19 23:42] LABS: Glucose,Whole Blood 136 mg/dL (70-110)
[2024-06-20 04:28] LABS: Basophils % (A) 0 %; Eosinophils # (A) 0.1 k/uL (0-0.7); Eosinophils % (A) 0 %; HCT 26.6 % (39.0-53.0); HGB 8.3 gm/dL (13.0-17.5); Lymphocytes # (A) 0.6 k/uL (1.0-4.8); Lymphocytes % (A) 4 %; MCH 28.6 pg (25.0-35.0); MCHC 31.1 g/dL (31.0-37.0); MCV 91.8 fL (80.0-100.0); Mean Platelet Volume 12.5; Monocytes # (A) 0.7 k/uL (0-1.0); Monocytes % (A) 4 %; Neutrophils # (A) 15.3 k/uL (1.3-7.7); Neutrophils % (A) 91 %; Platelet Count 246 k/uL (150-450); RDW 15.8 % (11.5-15.5); WBC 16.8 k/uL (3.8-10.6)
[2024-06-20 05:11] LABS: Glucose 120 mg/dL (74-99)
[2024-06-20 05:12] LABS: African American GFR (CKD) 57 (>60 ml/min/1.73 sqM); Blood Urea Nitrogen 100 mg/dL (9-20); Calcium 7.9 mg/dL (8.4-10.2); Chloride 99 mmol/L (98-107); Magnesium 2.8 mg/dL (1.6-2.3); Non-African American GFR(CKD) 49 (>60 ml/min/1.73 sqM); Potassium 4.7 mmol/L (3.5-5.1); Sodium 142 mmol/L (137-145)
[2024-06-20 05:19] LABS: Anion Gap 5 mmol/L; Carbon Dioxide 38 mmol/L (22-30)
[2024-06-20 05:19] LABS: ABG Base Excess 14.6 mmol/L; ABG Oxygen Saturation 97.9 % (94-97); ABG PCO2 54 mmHg (35-45); ABG PH 7.48 (7.35-7.45); ABG PO2 97 mmHg (83-108); ABG TCO2 42 mmol/L (19-24)
[2024-06-20 05:20] LABS: ABG HCO3 40 mmol/L (21-25)
[2024-06-20 05:21] LABS: Allen Test Performed? no
--- NOTE | 2024-06-20 06:04 | XR ---
EXAMINATION TYPE: XR chest 1V portable DATE OF EXAM: 06/20/2024 CLINICAL HISTORY: Difficulty breathing progress study. TECHNIQUE: Single AP portable semiupright view of the chest is obtained. COMPARISON: Chest x-ray from one day earlier and older studies. FINDINGS: Stable endotracheal and orogastric tubes. Stable left-sided subclavian central venous cath eter. Persistent left greater than right bilateral multifocal increased opacities. Persistent small left pl eural effusion. Cardiac silhouette size is stable and within normal limits. Osseous structures are in tact. IMPRESSION: Persistent bilateral multifocal acute infiltrates and/or edema with small left pleural ef fusion. No significant change from one day earlier. [facility], , 06/20/2024 6:02 AM
[2024-06-20 06:10] LABS: Glucose,Whole Blood 110 mg/dL (70-110)
--- NOTE | 2024-06-20 09:14 | P.OP ---
Date of Procedure: 06/20/24 Preoperative Diagnosis: Malnutrition Postoperative Diagnosis: Malnutrition Procedure(s) Performed: EGD with PEG tube placement Anesthesia: MAC Surgeon: Terrance Huynh Pathology: none sent Condition: stable Disposition: PACU Description of Procedure: The patient's placed on the bed in the supine position. The patient received general anesthesia. Next the gastroscope placed oropharynx passed in the esophagus and stomach. There is no evidence of any outlet obstruction. Stomach was insufflated with air. The light reflux seen the anterior abdominal wall. The abdomen was prepped and draped usual fashion. The skin was incised. And the needles placed and stomach under direct visualization. The needle was snared. And the wires placed through the needle and the wire was snared and brought the oropharynx. The PEG tube was placed over top the wire brought down to the stomach. The PEG tube was secured. At the 3 cm george. The one-piece bolster was used. Patient tolerated procedure well.
[2024-06-20] MEDS: ARTIFICIAL TEARS-HYPROMELLOSE DROPS 15 ML BTL BOTH EYES PRN (10:43)
--- NOTE | 2024-06-20 10:45 | P.PN ---
Subjective Patient is seen in follow-up for acute kidney injury. Renal function stable. On low-dose Levophed. On IV Lasix. Nonoliguric. Receiving water flushes with tube feeds. Sodium level stable. Potassium level normal. Intubated. Vital signs are stable. General: Resting in bed. HEENT: Intubated. NG tube noted. LUNGS: Scattered rhonchi. HEART: Rate and Rhythm are regular. ABDOMEN: Soft. Obese. EXTREMITITES: 2+ edema. Objective - Vital Signs Vital signs: Vital Signs Temp 98.4 F 06/20/24 04:00 Pulse 83 06/20/24 10:00 Resp 35 H 06/20/24 10:00 BP 134/59 06/20/24 10:00 Pulse Ox 99 06/20/24 10:00 FiO2 50 06/20/24 09:00 Intake & Output 06/19/24 06/20/24 06/20/24 18:59 06:59 18:59 Intake Total 2117.570 1436.368 164.265 Output Total 2725 3475 1050 Balance -607.430 -2038.632 -885.735 Weight 120.8 kg Intake: IV 241 192 64 .9 @ KVO 100 120 40 0.9 Nomal Saline Pressure 66 72 24 Bag Dextrose 5% in Water 1, 75 000 ml @ 75 mls/hr IV . [id number] [facility] Rx#:[id number] Intake, IV Titration 756.570 744.368 40.265 Amount Heparin Sod,Pork in 0.45% 244.853 373.707 NaCl 25,000 unit In 0.45 % NaCl 1 250ml.bag @ 8. 375 UNITS/KG/HR 10 mls/hr IV .Q24H [facility] Rx#: [id number] Norepinephrine 8 mg In 20.716 40.265 Sodium Chloride 0.9% 250 ml @ 0.03 MCG/KG/MIN 6. 589 mls/hr IV .Q24H [facility] Rx#:[id number] fentaNYL (PF). 1,000 mcg 83.614 In Sodium Chloride 0.9% 80 ml @ 0.5 MCG/KG/HR 6. 465 mls/hr IV .[id number] [facility] Rx#:[id number] propofoL 1,000 mg In 428.103 349.945 Empty Bag 1 bag @ 15 MCG/ KG/MIN 8.981 mls/hr IV . Q11H9M [facility] Rx#:[id number] Tube Feeding 220 100 Other 900 400 60 Output: Urine 2465 1545 1050 Other: Voiding Method Indwelling Catheter Indwelling Catheter Indwelling Catheter # Bowel Movements 1 ABP, PAP, CO, CI - Last Documented Arterial Blood Pressure 117/48 - Labs CBC & Chem 7: 06/20/24 04:14 06/20/24 04:14 Labs: Abnormal Lab Results - Last 24 Hours (Table) 06/19/24 06/19/24 06/19/24 Range/Units 11:28 18:08 23:40 WBC (3.8-10.6) k/uL RBC (4.30-5.90) m/uL Hgb (13.0-17.5) gm/dL Hct (39.0-53.0) % RDW (11.5-15.5) % Neutrophils # (1.3-7.7) k/uL Lymphocytes # (1.0-4.8) k/uL APTT (22.0-30.0) sec ABG pH (7.35-7.45) ABG pCO2 (35-45) mmHg ABG HCO3 (21-25) mmol/L ABG Total CO2 (19-24) mmol/L ABG O2 Saturation (94-97) % Hemoglobin (13.0-17.5) gm/dL Carbon Dioxide (22-30) mmol/L BUN (9-20) mg/dL Creatinine (0.66-1.25) mg/dL Glucose (74-99) mg/dL POC Glucose (mg/dL) 126 H 140 H 136 H (70-110) mg/dL Calcium (8.4-10.2) mg/dL Magnesium (1.6-2.3) mg/dL 06/20/24 06/20/24 06/20/24 Range/Units 04:14 04:14 04:14 WBC 16.8 H (3.8-10.6) k/uL RBC 2.90 L (4.30-5.90) m/uL Hgb 8.3 L (13.0-17.5) gm/dL Hct 26.6 L (39.0-53.0) % RDW 15.8 H (11.5-15.5) % Neutrophils # 15.3 H (1.3-7.7) k/uL Lymphocytes # 0.6 L (1.0-4.8) k/uL APTT 87.0 H (22.0-30.0) sec ABG pH (7.35-7.45) ABG pCO2 (35-45) mmHg ABG HCO3 (21-25) mmol/L ABG Total CO2 (19-24) mmol/L ABG O2 Saturation (94-97) % Hemoglobin (13.0-17.5) gm/dL Carbon Dioxide 38 H (22-30) mmol/L BUN 100 H (9-20) mg/dL Creatinine 1.44 H (0.66-1.25) mg/dL Glucose 120 H (74-99) mg/dL POC Glucose (mg/dL) (70-110) mg/dL Calcium 7.9 L (8.4-10.2) mg/dL Magnesium 2.8 H (1.6-2.3) mg/dL 06/20/24 Range/Units 05:14 WBC (3.8-10.6) k/uL RBC (4.30-5.90) m/uL Hgb (13.0-17.5) gm/dL Hct (39.0-53.0) % RDW (11.5-15.5) % Neutrophils # (1.3-7.7) k/uL Lymphocytes # (1.0-4.8) k/uL APTT (22.0-30.0) sec ABG pH 7.48 H (7.35-7.45) ABG pCO2 54 H (35-45) mmHg ABG HCO3 40 H* (21-25) mmol/L ABG Total CO2 42 H (19-24) mmol/L ABG O2 Saturation 97.9 H (94-97) % Hemoglobin 8.3 L (13.0-17.5) gm/dL Carbon Dioxide (22-30) mmol/L BUN (9-20) mg/dL Creatinine (0.66-1.25) mg/dL Glucose (74-99) mg/dL POC Glucose (mg/dL) (70-110) mg/dL Calcium (8.4-10.2) mg/dL Magnesium (1.6-2.3) mg/dL Microbiology - Last 24 Hours (Table) 06/19/24 15:30 Gram Stain - Preliminary Sputum Assessment and Plan Plan: Assessment: 1. Acute kidney injury secondary to ATN secondary to septic shock. Creatinine peaked at 2.94 this admission and is fairly stable at 1.44 today. Nonoliguric. Baseline creatinine near 1. No hydronephrosis noted on kidney ultrasound. 2. Septic shock secondary to pneumonia. Blood culture positive for strep and staph. Sputum culture positive for strep and Natalie. Also influenza A positive. 3. Hyperkalemia secondary to acute kidney injury, hyperglycemia and catabolic state. Improved. 4. Hypernatremia from lack of oral water intake and free water diuresis. Improved with water flushes and D5W. D5W now discontinued. 5. Acute hypoxic respiratory failure. Intubated. 6. Metabolic alkalosis with respiratory acidosis. Plan: Maintain IV Lasix. Maintain water flushes with tube feeds 400 cc every 4 hours. Diamox 250 mg IV once today. Blood glucose control. Tube feeds with low potassium. Continue to monitor renal function and urine output. Wean FiO2 and Levophed.
--- NOTE | 2024-06-20 11:47 | P.PN ---
Subjective Progress Note Date: 06/20/24 Principal diagnosis: Acute hypoxic respiratory failure with sepsis secondary to streptococcal pneumonia 69-year-old male patient came into the emergency department for shortness of breath. According to the significant other, the patient was sick approximately a week ago and his condition has been progressively getting worse. The patient has been falling. He has been having difficulties in keeping himself up and moving around over the past 24 hours. Based on that, he came into the emergency department. His initial pulse ox was 60% and he was placed on a BiPAP and rapi dly following that, the patient was intubated and placed on the mechanical ventilator. Chest x-ray at time of admission showed extensive pneumonia with left upper lobe consolidation and air bronchograms and bibasilar pulmonary infiltrates. Patient tested positive for influenza A. Postintubation, the patient's blood gases showed a pH of 7.36 with a pCO2 of 43 and pO2 of 60. Nevertheless, by the time he arrived to the ICU, the patient was again hypoxic with a pulse ox of 78%. Necessary ventilator changes were done and currently the patient is in a rate of 26, tidal volume of 375, PEEP of 24 with an FiO2 of 100% and expiratory pause of 0.2 ms. The blood gas showed a pH of 7.16 with a pCO2 of 77 and pO2 of 66. Triple-lumen catheter was established in the left IJ. Arterial line was also established. The patient is currently on Tamiflu. He was also started on broad-spectrum antibiotics utilizing a combination of cefepime Zithromax and vancomycin. Started on systemic steroids. Hem odynamically stable. No hypotension. Cardiac rhythm is sinus. According to the significant other, he has history of paroxysmal atrial fibrillation and the patient has undergone ablation. Cardiac rhythm is sinus. He also has hypertension. He is a former smoker. Does not utilize any form of oxygen therapy or inhalers on outpatient basis. No history of bronchial asthma. No history of COPD. No history of any congestion or heart failure. The white cell count of 15.3 with hemoglobin 15.8 and a platelet count of 265. Normal coagulation profile. BUN is 63 with a creatinine 1.42 and a sodium levels at 140 with a potassium level of 4.5. Initial lactic acid level was at 3.8 and dropped down to 2.0. The patient is currently on normal saline at rate of 100 cc an hour. Furthermore, he is sedated with propofol and paralytics with Bumex. In the intensive care unit. 06/14/2024, the patient is being seen for a follow-up. Remains intubated on the mechanical ventilator. This morning, the patient is off paralytics and the patient remains on propofol running at 65 mcg/kg/min. Remains on mechanical ventilator assist-control mode rate of 34, tidal volume of 450, FiO2 of 70% with a PEEP of 18. Blood gas showed a pH of 7.28 with a pCO2 of 59 and pO2 of 89. The patient remains hypotensive and remains on norepinephrine. The patient will be taken off vasopressin. Norepinephrine is running at 0.15 mcg/kg/min. Chest x-ray still showing stable bilateral pulmonary consolidation more extensive in the right lower lobe and the left upper lobe. Remains atrial fibrillation. Remains on IV Rocephin. Continues to receive enteral feeding for nutritional support. Remains on IV heparin regarding his ongoing atrial fibrillation. The WBC count is at 18, still elevated with a hemoglobin 10.3 and a platelet count of 193. Sodium is at 141, potassium is 5.1, bicarb is 27, BUN is 124 and creatinine is at 2.76. Despite ongoing renal failure, the patient is producing urine output. The patient was given Lasix and he continues to receive Lasix 80 mg on a daily basis. Rest of the medications remain unchanged. Completing course of Tamiflu. Remains on IV Rocephin. Remains on a combination of metoprolol 25 mg twice daily and amiodarone 4 mg p.o. twice daily for rate control. 06/15/2024, the patient is being seen for a follow-up. Remains intubated on mechanical ventilator. Remains sedated on propofol. Off paralytics and slightly asynchronous mechanical ventilator. May need fentanyl. Will continue monitoring his progress. Remains intubated on mechanical ventilator assist- control mode at rate of 36, tidal volume of 450, FiO2 of 70% with a PEEP of 18. Blood gas showed pH of 7.28 with a pCO2 of 64 pO2 of 106. Peak airway pressure is 36. Remains on norepinephrine running at 0.2 mcg/kg/min. Remains on vital HP at rate of 35 cc an hour. Follow-up chest x-ray done today shows improvement in the left upper lobe and right lower lobe pulmonary infiltrates. White cell count is at 19 with a hemoglobin 9.6 and a platelet count of 217. Sodium is at 146, potassium is at 5.7, chloride is 108, BUN is 140 with a creatinine of 2.5. Blood sugar is 200. Calcium level is at 7.4. Did have a episode of fever with a Tmax of 101.3. Remains on Lasix 80 mg IV every 24 hours. Fluid balance is +1.1 L over the past 24 hours and the patient has produced more than 2 L of urine output for yesterday. On 06/16/2024, patient is being seen for a follow-up. The patient remains on mechanical ventilator, sedated with propofol 65 mcg/kg/min and fentanyl at 1 mcg/kg/h. Chest x-ray findings are essentially stable and shows ongoing improvement in bilateral pulmonary infiltrates. Nevertheless, the patient remains intubated on mechanical ventilator. On today's evaluation, he is on assist-control at rate of 34, tidal volume of 450, FiO2 of 50% with a PEEP of 16. Blood gas showed a pH of 7.34 with pCO2 of 64 and pO2 of 79. The patient hemodynamically remains in atrial fibrillation, controlled rate. Vasopressin has been discontinued and norepinephrine has been weaned down to 0.07 mcg/kg/min. Remains on IV Lasix 80 mg every 12 hours. Fluid balance is -1.8 L over the past 24 hours. Remains on IV heparin. Remains on Lantus insulin 25 units daily and vital high-protein at rate of 35 cc an hour. Blood work from today shows a white cell count of 18, hemoglobin 9.1 and platelet count of 206. Sodium is at 151, K is at 5.8, BUN is at 143 with a creatinine of 2.3. Blood sugars at 195. Magnesium level is at 3.8. Calcium level is at 7.3. Patient was seen today on 06/17/2024, remains in the ICU, intubated and mechanically ventilated. Patient is still requiring ventilatory support still requiring hemodynamic support/norepinephrine and he remains quite ill, not ready for any trials of extubation. Patient is on assist-control rate of 34 tidal volume 450 FiO2 50% and PEEP of 16 ABG showed a pO2 of 99 pCO2 64 pH of 7.36. Patient is requiring norepinephrine at 0.03 mcg/kg/min propofol 65 mcg/kg/min Fentanyl 1 mcg/kg/h. Patient is receiving vital HP 35/35. Antibiotics lara he remains on Rocephin patient still on diuretics, seen by nephrology today, and he was placed on Lokelma and insulin was added for hyperkalemia. Patient was initially intubated on 06/10 and today is his seventh day of ventilatory support. Based on physical examination and based on his chest x-ray findings, he remains quite ill and he is not ready for any trials of weaning. Chest x-ray remains quite abnormal and on physical examination he has crackles rhonchi and wheezes noted bilaterally. Patient continues to have leukocytosis with WBC count of 17 hemoglobin is 8.3 D-dimer is 2.25. Sodium is 153 potassium 5.7 patient is on Lokelma, nephrology increased his free water via orogastric tube. Renal profile is abnormal with a BUN of 143 creatinine 2.03 liver enzymes are basically unremarkable LDH however is 320. Chest x-ray showed persistent bilateral multifocal infiltrates and/or atelectasis. But I believe this is mostly infiltrates. Patient was evaluated today on 06/18/2024, remains in the ICU remains intubated and mechanically ventilated still requiring norepinephrine at 0.07 micrograms per kilo per minute for low blood pressure patient remains on assist-control rate of 34 tidal volume 450 FiO2 50% PEEP is 16 and I cut it down to 14 today. ABG showed a pO2 of 100 pCO2 64 pH of 7.38 hence no other changes were made in ventilator settings. Drips lara patient remains on fentanyl at 1 mcg/kg/h propofol 65 mg/kg/min heparin drip, norepinephrine at 0.07 D5W at 75 cc/h Rocephin was renewed today he remains on Lasix 80 mg IV push every 12 hours. Patient is basically about the same, not much has changed between yesterday and today. Chest x-ray continues to show evidence of bilateral multifocal infiltrates and/or atelectasis. No significant change noted in chest x-ray compared to yesterday. Continues to have leukocytosis with WBC of 17.5 hemoglobin is 8.2 sodium is a bit better with sodium of 150 potassium 6.1 being addressed by nephrology BUN is 131 creatinine 1.61 bicarb is 39. Blood sugar is 181. Patient is in sinus rhythm, he is on amiodarone at 400 mg p.o. twice daily, remains on Rocephin remains on Lasix 80 twice daily, on insulin, and on updrafts as well as lactulose. Clearly considering the patient continues to have significantly abnormal chest x-ray and still requiring high PEEP, not ready for any weaning at this point. Patient was seen today on 06/19/2024, remains in the ICU, intubated and mechanically ventilated. Patient could not have mental status assessment yesterday as he seems to get extremely agitated, restless, and hypertensive tachypneic and tachycardic once he is off sedation for mental status assessment. Patient remains on assist-control rate of 34, tidal volume 450 FiO2 50% and PEEP was 14 and I cut it down to 12 today. His ABG showed a pO2 of 95 pCO2 59 pH of 7.44. Remains on fentanyl at 0.5 mcg/kg/h heparin drip, propofol at 55 mcg/kg/min IV fluid 0.9 normal saline at 10 cc/h he is also on Nepro 20/2 0/enteral feeding. Patient has been on Rocephin all along, chest x-ray continues to show multifocal infiltrates, hence I have ordered repeat sputum culture on this patient, may have to consider even bronchoscopy and BAL. In the meantime I believe it is best to continue the same course of treatment and continue supportive care measures as well as mechanical ventilation. Obviously the patient is not anywhere near weaning hence I am recommending surgical evaluation for possible trach and PEG later this week. Yesterday I had a chance to discuss his condition with his family at bedside. WBC count remains high 14.4 hemoglobin is 8 ABG as noted earlier. Electrolytes are better sodium down to 144 potassium 5 BUN remains high at 113 creatinine 1.45 Patient was seen today on 06/20/2024, patient remains on the ICU, intubated and mechanically ventilated, patient is supposed to have tracheostomy and PEG tube placement today. In the meantime the patient remains on assist-control rate of 34 tidal volume 450 FiO2 50% and PEEP 12 and I cut it down to 10. ABG showed a pO2 of 97 pCO2 54 pH of 7.48. Patient is still requiring low-dose of norepinephrine at 0.04 mcg/kg/min his fentanyl is 0.5 mg/kg/h propofol 60 mcg/kg/min patient is receiving Nepro at 20/20. Chest x-ray continues show evidence of bilateral infiltrates. CBC continues to show leukocytosis with WBC count of 16.8 hemoglobin 8.3 PTT is 87 however his heparin now is on hold. Basic metabolic profile is normal bicarb is 38 BUN is 100 creatinine is 1.44. Repeat sputum cultures from yesterday showing mostly yeast and many PMNs, Objective - Vital Signs Vital signs: Vital Signs Temp 98.4 F 06/20/24 04:00 Pulse 82 06/20/24 11:08 Resp 34 H 06/20/24 11:00 BP 126/66 06/20/24 11:00 Pulse Ox 98 06/20/24 11:00 FiO2 50 06/20/24 11:03 Intake & Output 06/19/24 06/20/24 06/20/24 18:59 06:59 18:59 Intake Total 2117.570 1436.368 285.756 Output Total 2725 3475 1280 Balance -607.430 -2038.632 -994.244 Weight 120.8 kg 120.8 kg Intake: IV 241 192 80 .9 @ KVO 100 120 50 0.9 Nomal Saline Pressure 66 72 30 Bag Dextrose 5% in Water 1, 75 000 ml @ 75 mls/hr IV . [id number] [facility]ACQUES Rx#:[id number] Intake, IV Titration 756.570 744.368 145.756 Amount Heparin Sod,Pork in 0.45% 244.853 373.707 NaCl 25,000 unit In 0.45 % NaCl 1 250ml.bag @ 8. 375 UNITS/KG/HR 10 mls/hr IV .Q24H JACQUES Rx#: [id number] Norepinephrine 8 mg In 20.716 45.756 Sodium Chloride 0.9% 250 ml @ 0.03 MCG/KG/MIN 6. 589 mls/hr IV .Q24H JACQUES Rx#:[id number] fentaNYL (PF). 1,000 mcg 83.614 In Sodium Chloride 0.9% 80 ml @ 0.5 MCG/KG/HR 6. 465 mls/hr IV .[id number] [facility]ACQU[facility] Rx#:[id number] propofoL 1,000 mg In 428.103 349.945 100 Empty Bag 1 bag @ 15 MCG/ KG/MIN 8.981 mls/hr IV . [id number] JACQUES Rx#:[id number] Tube Feeding 220 100 Other 900 400 60 Output: Urine 2725 3475 1280 Other: Voiding Method Indwelling Catheter Indwelling Catheter Indwelling Catheter # Bowel Movements 1 ABP, PAP, CO, CI - Last Documented Arterial Blood Pressure 110/45 - Exam General: Revealed 69-year-old white male obese intubated and mechanically ventilated Derm: No rashes Head: Atraumatic normocephalic Eyes: PERRLA, EOMI, nonicteric, periorbital swelling is noted Mouth: Normal mucous membranes, endotracheal tube and orogastric tube are intact. Cardiovascular: Distant S1-S2, no S3 gallop, no murmur Lungs: Diminished breath sound bilaterally scattered rhonchi noted Abdominal: Obese soft nontender no rebound no guarding Ext: 3+ bipedal edema Neuro: Could not assess, patient is intubated and sedated Psych: Could not assess patient is intubated and sedated [ - Labs CBC & Chem 7: 06/20/24 04:14 06/20/24 04:14 Labs: Abnormal Lab Results - Last 24 Hours (Table) 06/19/24 06/19/24 06/20/24 Range/Units 18:08 23:40 04:14 WBC 16.8 H (3.8-10.6) k/uL RBC 2.90 L (4.30-5.90) m/uL Hgb 8.3 L (13.0-17.5) gm/dL Hct 26.6 L (39.0-53.0) % RDW 15.8 H (11.5-15.5) % Neutrophils # 15.3 H (1.3-7.7) k/uL Lymphocytes # 0.6 L (1.0-4.8) k/uL APTT (22.0-30.0) sec ABG pH (7.35-7.45) ABG pCO2 (35-45) mmHg ABG HCO3 (21-25) mmol/L ABG Total CO2 (19-24) mmol/L ABG O2 Saturation (94-97) % Hemoglobin (13.0-17.5) gm/dL Carbon Dioxide (22-30) mmol/L BUN (9-20) mg/dL Creatinine (0.66-1.25) mg/dL Glucose (74-99) mg/dL POC Glucose (mg/dL) 140 H 136 H (70-110) mg/dL Calcium (8.4-10.2) mg/dL Magnesium (1.6-2.3) mg/dL 06/20/24 06/20/24 06/20/24 Range/Units 04:14 04:14 05:14 WBC (3.8-10.6) k/uL RBC (4.30-5.90) m/uL Hgb (13.0-17.5) gm/dL Hct (39.0-53.0) % RDW (11.5-15.5) % Neutrophils # (1.3-7.7) k/uL Lymphocytes # (1.0-4.8) k/uL APTT 87.0 H (22.0-30.0) sec ABG pH 7.48 H (7.35-7.45) ABG pCO2 54 H (35-45) mmHg ABG HCO3 40 H* (21-25) mmol/L ABG Total CO2 42 H (19-24) mmol/L ABG O2 Saturation 97.9 H (94-97) % Hemoglobin 8.3 L (13.0-17.5) gm/dL Carbon Dioxide 38 H (22-30) mmol/L BUN 100 H (9-20) mg/dL Creatinine 1.44 H (0.66-1.25) mg/dL Glucose 120 H (74-99) mg/dL POC Glucose (mg/dL) (70-110) mg/dL Calcium 7.9 L (8.4-10.2) mg/dL Magnesium 2.8 H (1.6-2.3) mg/dL Microbiology - Last 24 Hours (Table) 06/19/24 15:30 Gram Stain - Preliminary Sputum Assessment and Plan Assessment: Impression: Acute hypoxic respiratory failure secondary to bilateral pneumococcal pneumonia and septic shock. Mechanically ventilated, patient will not be easy to wean, hence he is undergoing tracheostomy and PEG tube placement today. Bilateral pneumococcal pneumonia following an acute influenza A infection. Septic shock, second pneumococcal pneumonia with bacteremia. Acute kidney injury,, likely acute tubular necrosis being followed by nephrology Acute leukocytosis, white cell count is still elevated, secondary to above mostly sepsis and septic shock Atrial fibrillation with rapid ventricular response, currently on amiodarone .. Remains on IV heparin. Which is presently on hold for trach and PEG History of hypertension Hypernatremia secondary to free water deficit, improving with free water Significant yeast noted in the sputum, will recommend fluconazole. Recommendation: Continue ventilatory support, trach and PEG scheduled for today Start patient on fluconazole Continue hemodynamic support/norepinephrine and titrate accordingly Continue Lasix Continue to address and correct daily abnormal electrolytes. Patient completed a course of Tamiflu Continue IV Solu-Medrol Continue Rocephin Continue enteral feeding for nutritional support, presently on hold, will start this tomorrow at least after 24 hours of having a PEG tube. Continue GI and DVT prophylaxis Continue insulin Continue oral amiodarone 400 mg p.o. twice a day, continue heparin Patient is not ready for any form of weaning at this point Remains critically ill Critical care time is 32 minutes Time with Patient: Greater than 30
[2024-06-20 11:58] LABS: Glucose,Whole Blood 106 mg/dL (70-110)
[2024-06-20] MEDS: FLUCONAZOLE IN NACL,ISO-OSM 200 MG in SALINE 1 100ML.BAG IVPB SCH (13:26)
--- NOTE | 2024-06-20 14:43 | P.PN ---
Subjective Progress Note Date: 06/20/24 Hospital Course: Patient is a 69-year-old male with past medical history of A-fib status post a blation, hypertension. History obtained from chart review. Per ER note, EMS was called by patient's family for shortness of breath, family reported that multiple family members were sick in the house. They noted his SpO2 to be in 60s on placed him on CPAP with no improvement and he continued to breathe rapidly, spiking fever Initially, patient was placed on BiPAP for hypoxia, remained tachypneic and in respiratory distress despite BiPAP. Patient spent 1-1/2-hour on BiPAP with no improvement in his respiratory status, therefore, decision was made to intubate on 06/10, and was sedated, paralyzed, and transferred to ICU. Started on treatment for acute hypoxic respiratory failure secondary to bilateral pneumonia, influenza A pneumonia with cefepime, vancomycin; tamiflu, and solumedrol. Repeat chest x-ray showed diffuse pulmonary infiltrates and blood gases showed severe acidosis with pH of 7.05, patient was started on bicarb drip overnight, his blood pressure dropped requiring pressors. Hospital course complicated by oliguric renal failure. Nephrology consulted, kidney ultrasound and UA ordered, showed no obstruction or hydronephrosis. Nephrology also was following for hyperkalemia and hyponatremia, patient was started on Lokelma, continued on IV Lasix, recommended water flushes with tube feeds 400 cc every 4 hours. Blood cultures growing strep pneumo, antibiotics de-escalated to ceftriaxone 2 g daily. Cardiology consulted for A-fib with RVR, patient started on amiodarone drip, then switched to oral amiodarone starting as well as heparin gtt. Also hospital course was complicated by acute anemia, LDH 320, haptoglobin elevated, hematuria on UA.D-dimer elevated, but Fibrinogen normal, PTT elevated, PT/INR normal. 06/19, Levophed off, PEEP down to 12 06/20: Levo 0.04, PEEP down to 10, PEG tube in place, Diamox once Pertinent Imaging: Persistent infiltrates bilaterally, no significant changes Subjective: Intubated and sedated Vitals Signs Reviewed. General: [Intubated, sedated, obese Derm: [warm], [dry] Head: [atraumatic], [normocephalic], [symmetric] Eyes: [EOMI], [no lid lag], [anicteric sclera] Mouth: [no lip lesion], [mucus membranes moist] Cardiovascular: [S1S2 reg], [no murmur] Lungs bilateral air entry appreciated, diminished breath sounds in the bases Abdominal: [soft], [ nontender to palpation], [no guarding], [no appreciable organomegaly], PEG tube in place Ext: [no gross muscle atrophy], [2-3+ bilateral lower extremity edema], [no co ntractures] Neuro: Intubated, sedated Psych: Sedated, sedated Data Reviewed Today: Pertinent Labs: WBC 16.8, hemoglobin 8.3, platelet count normal, ABG with pH of 7.48, pCO2 54, pO2 97, sodium 142, potassium 4.7, bicarb 28, creatinine 1.4, glucose 120 Assessment and Plan: Septic shock secondary with Acute Hypoxemic Respiratory Failure Community-acquired strep pneumo pneumonia, influenza A infection Strep pneumo bacteremia -Vent settings per ICU: currently being weaned down PEEP 18-->16-->14-->12, FiO2 70%-->60%-->50% -Continue ceftriaxone 2 g daily, antibiotics SOT 06/10, repeat cultures sputum showing yeast, PMNs -Remains on solumedrol 40 every 12 hours -Tamiflu has been discontinued 06/15 -Continue DuoNebs q4 hours -Status post PEG tube placement 06/20 tube feeding to be started 24 hours after procedure, plan for trach placement -On levo 0.04 Steroid induced hyperglycemia Prediabetes -SSI, Accu-Cheks every 6 hours, - Levemir 25 units twice daily - Lispro 5 units q6h [facility] -qualifies for metformin on discharge if kidney function recovers enough, otherwise defer to outpatient follow up Acute Anemia -retic count is 1.1 (hypoproliferative) -FOBT ordered -LDH 320, haptoglobin high -repeat UA shows moderate blood, 59 RBC, occasional uric acid crystals -D-dimer elevated, but Fibrinogen normal, PTT elevated, PT/INR normal -consider discontinuing heparin gtt if continued drop in hgb Acute Kidney Injury secondary to ATN, initially oliguric Hyperkalemia resolved Hypernatremia secondary to free water deficit Metabolic Alkalosis -Nephrology following -Goal potassium tube feeding -Lasix at 80mg IV q12hr -BUN elevated, but Cr improving -Na improving, [facility] - 400cc q4h, D5 infusion stopped, Diamox 250 IV once 06/20 -Monitor for bicarb, if continues to trend up, nephrology considering Diamox Persistent A-fib status post ablation : -Continue heparin drip, -Amiodarone p.o. 400 twice daily, Lopressor 25 twice daily. -Cardiology following History of hypertension: GERD: Left forehead lipoma Obesity, Class III -Home medications reviewed and reconciled GI PPx: Stress ulcer prophylaxis with IV Protonix CODE STATUS: default full code DVT prophylaxis: Heparin drip Anticipated discharge date: tbd Anticipated discharge place: tbd Objective - Vital Signs Vital signs: Vital Signs Temp 98.5 F 06/20/24 12:00 Pulse 94 06/20/24 13:00 Resp 34 H 06/20/24 13:00 BP 127/61 06/20/24 13:00 Pulse Ox 99 06/20/24 13:00 FiO2 50 06/20/24 13:00 Intake & Output 06/19/24 06/20/24 06/20/24 18:59 06:59 18:59 Intake Total 2117.570 1436.368 317.756 Output Total 2725 3475 1590 Balance -607.430 -2038.632 -1272.244 Weight 120.8 kg 120.8 kg Intake: IV 241 192 112 .9 @ KVO 100 120 70 0.9 Nomal Saline Pressure 66 72 42 Bag Dextrose 5% in Water 1, 75 000 ml @ 75 mls/hr IV . [id number] [facility] Rx#:[id number] Intake, IV Titration 756.570 744.368 145.756 Amount Heparin Sod,Pork in 0.45% 244.853 373.707 NaCl 25,000 unit In 0.45 % NaCl 1 250ml.bag @ 8. 375 UNITS/KG/HR 10 mls/hr IV .Q24H [facility] Rx#: [id number] Norepinephrine 8 mg In 20.716 45.756 Sodium Chloride 0.9% 250 ml @ 0.03 MCG/KG/MIN 6. 589 mls/hr IV .Q24H [facility] Rx#:[id number] fentaNYL (PF). 1,000 mcg 83.614 In Sodium Chloride 0.9% 80 ml @ 0.5 MCG/KG/HR 6. 465 mls/hr IV .[id number] [facility] Rx#:[id number] propofoL 1,000 mg In 428.103 349.945 100 Empty Bag 1 bag @ 15 MCG/ KG/MIN 8.981 mls/hr IV . Q11H9M [facility] Rx#:[id number] Tube Feeding 220 100 Other 900 400 60 Output: Urine 2725 3475 1590 Other: Voiding Method Indwelling Catheter Indwelling Catheter Indwelling Catheter # Bowel Movements 1 ABP, PAP, CO, CI - Last Documented Arterial Blood Pressure 111/52 - Labs CBC & Chem 7: 06/20/24 04:14 06/20/24 04:14 Labs: Abnormal Lab Results - Last 24 Hours (Table) 06/19/24 06/19/24 06/20/24 Range/Units 18:08 23:40 04:14 WBC 16.8 H (3.8-10.6) k/uL RBC 2.90 L (4.30-5.90) m/uL Hgb 8.3 L (13.0-17.5) gm/dL Hct 26.6 L (39.0-53.0) % RDW 15.8 H (11.5-15.5) % Neutrophils # 15.3 H (1.3-7.7) k/uL Lymphocytes # 0.6 L (1.0-4.8) k/uL APTT (22.0-30.0) sec ABG pH (7.35-7.45) ABG pCO2 (35-45) mmHg ABG HCO3 (21-25) mmol/L ABG Total CO2 (19-24) mmol/L ABG O2 Saturation (94-97) % Hemoglobin (13.0-17.5) gm/dL Carbon Dioxide (22-30) mmol/L BUN (9-20) mg/dL Creatinine (0.66-1.25) mg/dL Glucose (74-99) mg/dL POC Glucose (mg/dL) 140 H 136 H (70-110) mg/dL Calcium (8.4-10.2) mg/dL Magnesium (1.6-2.3) mg/dL 06/20/24 06/20/24 06/20/24 Range/Units 04:14 04:14 05:14 WBC (3.8-10.6) k/uL RBC (4.30-5.90) m/uL Hgb (13.0-17.5) gm/dL Hct (39.0-53.0) % RDW (11.5-15.5) % Neutrophils # (1.3-7.7) k/uL Lymphocytes # (1.0-4.8) k/uL APTT 87.0 H (22.0-30.0) sec ABG pH 7.48 H (7.35-7.45) ABG pCO2 54 H (35-45) mmHg ABG HCO3 40 H* (21-25) mmol/L ABG Total CO2 42 H (19-24) mmol/L ABG O2 Saturation 97.9 H (94-97) % Hemoglobin 8.3 L (13.0-17.5) gm/dL Carbon Dioxide 38 H (22-30) mmol/L BUN 100 H (9-20) mg/dL Creatinine 1.44 H (0.66-1.25) mg/dL Glucose 120 H (74-99) mg/dL POC Glucose (mg/dL) (70-110) mg/dL Calcium 7.9 L (8.4-10.2) mg/dL Magnesium 2.8 H (1.6-2.3) mg/dL Microbiology - Last 24 Hours (Table) 06/19/24 15:30 Gram Stain - Preliminary Sputum Sputum Culture - Preliminary Natalie albicans
--- NOTE | 2024-06-20 16:34 | P.PN ---
Subjective Principal diagnosis: The patient is a 69-year-old male who presented with symptoms of progressive dyspnea, diagnosed with pneumonia and influenza A, requiring mechanical ventilation. Cardiology consultation was requested because of atrial fibrillation. The patient is intubated and sedated. He has a history of atrial fibrillation, status post ablation in January 2024. He was in sinus mechanism on presentation and back in atrial fibrillation at this time with episode of rapid ventricle response. He is on vasopressors. He had an echocardiogram that showed a preserved systolic function, the study was technically difficult. The patient has been anticoagulated as an outpatient. Her chest x-ray shows severe infiltration bilaterally consistent with a pneumonia. Presentation he had evidence of acute renal injury and hypotension related to sepsis. He has been initiated on amiodarone and he is on vasopressin in addition to norepinephrine June 13: The patient remains intubated and sedated. He had episodes of paroxysmal atrial fibrillation. He is in sinus mechanism at this time. He continues to be on norepinephrine. His urine output is stable. His chest x-ray shows bilateral infiltrate consistent with his pneumonia. There is no evidence of ventricular ectopic activity.There is significant worsening of his renal function with a BUN up to 101 with a creatinine of 2.94. Tolerating tube feeding June 14: The patient remains intubated and sedated. He is in atrial fibrillation with controlled ventricular response. He is on the lower dose of norepinephrine. His urine output has been stable and he is tolerating tube feeding. He had no evidence of ventricular ectopic activity. He continues to have significant infiltrate on his chest x-ray. June 15: The patient remains intubated and sedated, he is on the lower PEEP. He continues to be in atrial fibrillation with controlled ventricular response. His urinary output has improved. There is no evidence of ventricular ectopic activity. His chest x-ray continues to show evidence of infiltrate bilaterally. Continues to be on IV heparin. He has worsening of his renal functions. June 16: The patient remains intubated and sedated on PEEP of 16. His dose of Levophed has been decreased. He continues to be on IV diuretics with good urine output. He is in atrial fibrillation with controlled ventricular response but no evidence of ventricular ectopic activity. His chest x-ray continues to show bilateral infiltrate. 06/17 patient seen and examined. Patient remains intubated and sedated. Per nursing has been able to be weaned somewhat on the norepinephrine. Still requiring 50% FiO2 with PEEP of 16. He is getting free water flushes through his OG tube. Good urine output with approximately 100 mL per hour. Creatinine mildly improving to 1.9 and BUN relatively stable. He remains in A. fib with heart rates 80s to 100s. hemoglobin downtrending to 8.3. Per nursing some bruising around his left subclavian central line. 06/18 Patient seen and examined. Patient remains intubated and sedated. Currently undergoing spontaneous breathing trial. Remains in A. fib with heart rates in the 90s to 100s. Creatinine mildly improving to 1.6 however significantly elevated BUN 131. Potassium originally 6.1 however improved to 5.1. He is receiving free water flushes through his G-tube with mild improvement in sodium to 150. Hemoglobin relatively stable at 8.2. Remains on a heparin drip. 06/19 Patient seen and examined. Patient remains intubated and sedated with rates of 34 and PEEP of 12 with FiO2 50%. Remains in A-fib with heart rates in the 90s to 100s. Creatinine improved to 1.4 and sodium improved to 144. CVP readings in the 15 range. 06/20 Patient seen and examined. Patient remains intubated and sedated. PEEP 10 FiO2 50%. BUN improved to 100 and creatinine 1.4. Remains in Afib. He was placed on low-dose norepinephrine and his metoprolol has intermittently been held however heart rates predominantly better controlled more recent in the last 6 hours more in the 70s to 80s.. Medications: IV heparin, Rocephin, insulin, methylprednisolone, metoprolol tartrate 25 mg twice a day, Tamiflu, vancomycin, amiodarone 400 mg twice a day, Lasix 80 mg IV twice daily, amiodarone 400 mg twice a day PHYSICAL EXAMINATION: vitals reviewed, intubated and sedated LUNGS: Clear to auscultation anteriorly HEART: Irregular rate and rhythm, S1, S2. No S3. Systolic ejection murmur ABDOMEN: Soft, positive bowel sounds, no organomegaly EXTREMETIES: +1 edema IMPRESSION: 1. Acute respiratory failure with bilateral pneumonia and influenza A requiring mechanical ventilation 2. Paroxysmal atrial fibrillation status post ablation in 2023 3. Acute renal injury related to the sepsis and hypotension,, good urine output 4. Leukocytosis 5. Anemia 6. Septic shock on vasoperssors PLAN: Continue amiodarone 400mg bid for now with increased HR's. Likely decrease in the next 24 to 48 hours if heart rates improve Hemoglobin appears stable and continue with heparin drip Elevated CVP and continue with diuresis as able. Patient does have significantly increased BUN to creatinine however slowly improving. Continue current supportive care and weaning sedation/ventilator as able. Objective - Vital Signs Vital signs: Vital Signs Temp 98.7 F 06/20/24 16:00 Pulse 82 06/20/24 16:00 Resp 35 H 06/20/24 16:00 BP 124/68 06/20/24 16:00 Pulse Ox 99 06/20/24 16:00 FiO2 50 06/20/24 16:00 Intake & Output 06/19/24 06/20/24 06/20/24 18:59 06:59 18:59 Intake Total 2117.570 1436.368 465.756 Output Total 2725 3475 2190 Balance -607.430 -2038.632 -1724.244 Weight 120.8 kg 120.8 kg Intake: IV 241 192 160 .9 @ KVO 100 120 100 0.9 Nomal Saline Pressure 66 72 60 Bag Dextrose 5% in Water 1, 75 000 ml @ 75 mls/hr IV . [id number] [facility] Rx#:[id number] Intake, IV Titration 756.570 744.368 245.756 Amount Heparin Sod,Pork in 0.45% 244.853 373.707 NaCl 25,000 unit In 0.45 % NaCl 1 250ml.bag @ 8. 375 UNITS/KG/HR 10 mls/hr IV .Q24H [facility] Rx#: [id number] Norepinephrine 8 mg In 20.716 45.756 Sodium Chloride 0.9% 250 ml @ 0.03 MCG/KG/MIN 6. 589 mls/hr IV .Q24H [facility] Rx#:[id number] fentaNYL (PF). 1,000 mcg 83.614 In Sodium Chloride 0.9% 80 ml @ 0.5 MCG/KG/HR 6. 465 mls/hr IV .[id number] [facility] Rx#:[id number] propofoL 1,000 mg In 428.103 349.945 200 Empty Bag 1 bag @ 15 MCG/ KG/MIN 8.981 mls/hr IV . Q11H9M [facility] Rx#:[id number] Tube Feeding 220 100 Other 900 400 60 Output: Urine 6511 6252 8435 Other: Voiding Method Indwelling Catheter Indwelling Catheter Indwelling Catheter # Bowel Movements 1 ABP, PAP, CO, CI - Last Documented Arterial Blood Pressure 84/49 - Labs CBC & Chem 7: 06/20/24 04:14 06/20/24 04:14 Labs: Abnormal Lab Results - Last 24 Hours (Table) 06/19/24 06/19/24 06/20/24 Range/Units 18:08 23:40 04:14 WBC 16.8 H (3.8-10.6) k/uL RBC 2.90 L (4.30-5.90) m/uL Hgb 8.3 L (13.0-17.5) gm/dL Hct 26.6 L (39.0-53.0) % RDW 15.8 H (11.5-15.5) % Neutrophils # 15.3 H (1.3-7.7) k/uL Lymphocytes # 0.6 L (1.0-4.8) k/uL APTT (22.0-30.0) sec ABG pH (7.35-7.45) ABG pCO2 (35-45) mmHg ABG HCO3 (21-25) mmol/L ABG Total CO2 (19-24) mmol/L ABG O2 Saturation (94-97) % Hemoglobin (13.0-17.5) gm/dL Carbon Dioxide (22-30) mmol/L BUN (9-20) mg/dL Creatinine (0.66-1.25) mg/dL Glucose (74-99) mg/dL POC Glucose (mg/dL) 140 H 136 H (70-110) mg/dL Calcium (8.4-10.2) mg/dL Magnesium (1.6-2.3) mg/dL 06/20/24 06/20/24 06/20/24 Range/Units 04:14 04:14 05:14 WBC (3.8-10.6) k/uL RBC (4.30-5.90) m/uL Hgb (13.0-17.5) gm/dL Hct (39.0-53.0) % RDW (11.5-15.5) % Neutrophils # (1.3-7.7) k/uL Lymphocytes # (1.0-4.8) k/uL APTT 87.0 H (22.0-30.0) sec ABG pH 7.48 H (7.35-7.45) ABG pCO2 54 H (35-45) mmHg ABG HCO3 40 H* (21-25) mmol/L ABG Total CO2 42 H (19-24) mmol/L ABG O2 Saturation 97.9 H (94-97) % Hemoglobin 8.3 L (13.0-17.5) gm/dL Carbon Dioxide 38 H (22-30) mmol/L BUN 100 H (9-20) mg/dL Creatinine 1.44 H (0.66-1.25) mg/dL Glucose 120 H (74-99) mg/dL POC Glucose (mg/dL) (70-110) mg/dL Calcium 7.9 L (8.4-10.2) mg/dL Magnesium 2.8 H (1.6-2.3) mg/dL Microbiology - Last 24 Hours (Table) 06/19/24 15:30 Gram Stain - Preliminary Sputum Sputum Culture - Preliminary Natalie albicans
[2024-06-20] MEDS ORDERED: ROCURONIUM 10 MG/ML (5 ML VIAL) IV ONE (17:14)
[2024-06-20 18:26] LABS: Glucose,Whole Blood 123 mg/dL (70-110)
[2024-06-20] MEDS: INSULIN LISPRO (HumaLOG) 100 UNIT/ML 10 mL VL SQ SCH (18:27)
[2024-06-21 00:15] LABS: Glucose,Whole Blood 132 mg/dL (70-110)
[2024-06-21 04:15] LABS: ABG Base Excess 9.1 mmol/L; ABG HCO3 33 mmol/L (21-25); ABG PCO2 44 mmHg (35-45); ABG PH 7.49 (7.35-7.45); ABG PO2 80 mmHg (83-108); ABG TCO2 35 mmol/L (19-24)
[2024-06-21 04:17] LABS: Allen Test Performed? no
[2024-06-21 04:26] LABS: Basophils % (A) 0 %; Eosinophils % (A) 0 %; HCT 29.5 % (39.0-53.0); HGB 9.6 gm/dL (13.0-17.5); Hypochromasia Slight; Lymphocytes # (A) 0.5 k/uL (1.0-4.8); Lymphocytes % (A) 3 %; MCH 29.9 pg (25.0-35.0); MCHC 32.5 g/dL (31.0-37.0); MCV 92.1 fL (80.0-100.0); Mean Platelet Volume 12.3; Monocytes # (A) 0.9 k/uL (0-1.0); Monocytes % (A) 5 %; Neutrophils # (A) 15.6 k/uL (1.3-7.7); Neutrophils % (A) 91 %; Platelet Count 269 k/uL (150-450); RBC 3.21 m/uL (4.30-5.90); RDW 15.5 % (11.5-15.5); WBC 17.1 k/uL (3.8-10.6)
[2024-06-21 04:37] LABS: African American GFR (CKD) 44 (>60 ml/min/1.73 sqM); Anion Gap 1 mmol/L; Blood Urea Nitrogen 88 mg/dL (9-20); Carbon Dioxide 39 mmol/L (22-30); Chloride 102 mmol/L (98-107); Glucose 125 mg/dL (74-99); Non-African American GFR(CKD) 38 (>60 ml/min/1.73 sqM); Potassium 4.4 mmol/L (3.5-5.1); Sodium 142 mmol/L (137-145)
[2024-06-21 06:02] LABS: Glucose,Whole Blood 137 mg/dL (70-110)
--- NOTE | 2024-06-21 10:05 | P.PN ---
Subjective Patient is seen in follow-up for acute kidney injury. Renal function worse. Off Levophed. On IV Lasix. Nonoliguric. Underwent tracheostomy and PEG tube placement June 20, 2024. Tube feeds and water flushes will be resumed this afternoon. Sodium level stable. Potassium level normal. Vital signs are stable. General: Resting in bed. HEENT: Tracheostomy noted. LUNGS: Scattered rhonchi. HEART: Rate and Rhythm are regular. ABDOMEN: Soft. Obese. EXTREMITITES: 2+ edema. Scrotal edema noted. Objective - Vital Signs Vital signs: Vital Signs Temp 99.4 F 06/21/24 08:00 Pulse 94 06/21/24 08:30 Resp 36 H 06/21/24 08:30 BP 128/58 06/21/24 08:30 Pulse Ox 99 06/21/24 08:30 FiO2 50 06/21/24 08:00 Intake & Output 06/20/24 06/21/24 06/21/24 18:59 06:59 18:59 Intake Total 593.546 521.941 182 Output Total 2510 4075 375 Balance -1916.454 -3553.059 -193 Weight 120.8 kg 112.9 kg 112.9 kg Intake: IV 192 192 182 .9 @ KVO 120 120 20 0.9 Nomal Saline Pressure 72 72 12 Bag Fluconazole in NaCl,Iso- 100 Osm 200 mg In Saline 1 100ml.bag @ 100 mls/hr IVPB DAILY [facility] Rx#: [id number] cefTRIAXone 2 gm In 50 Sodium Chloride 0.9% 50 ml @ 100 mls/hr IVPB Q24HR [facility] Rx#:[id number] Intake, IV Titration 341.546 329.941 Amount Norepinephrine 8 mg In 74.488 96.999 Sodium Chloride 0.9% 250 ml @ 0.03 MCG/KG/MIN 6. 589 mls/hr IV .Q24H [facility] Rx#:[id number] propofoL 1,000 mg In 267.058 232.942 Empty Bag 1 bag @ 15 MCG/ KG/MIN 8.981 mls/hr IV . Q11H9M [facility] Rx#:[id number] Other 60 Output: Urine 2500 4075 375 Estimated Blood Loss 10 Other: Voiding Method Indwelling Catheter Indwelling Catheter Indwelling Catheter ABP, PAP, CO, CI - Last Documented Arterial Blood Pressure 106/50 - Labs CBC & Chem 7: 06/21/24 04:15 06/21/24 04:15 Labs: Abnormal Lab Results - Last 24 Hours (Table) 06/20/24 06/21/24 06/21/24 Range/Units 18:25 00:12 04:11 WBC (3.8-10.6) k/uL RBC (4.30-5.90) m/uL Hgb (13.0-17.5) gm/dL Hct (39.0-53.0) % Neutrophils # (1.3-7.7) k/uL Lymphocytes # (1.0-4.8) k/uL ABG pH 7.49 H (7.35-7.45) ABG pO2 80 L (83-108) mmHg ABG HCO3 33 H (21-25) mmol/L ABG Total CO2 35 H (19-24) mmol/L Hemoglobin 8.8 L (13.0-17.5) gm/dL Carbon Dioxide (22-30) mmol/L BUN (9-20) mg/dL Creatinine (0.66-1.25) mg/dL Glucose (74-99) mg/dL POC Glucose (mg/dL) 123 H 132 H (70-110) mg/dL Calcium (8.4-10.2) mg/dL 06/21/24 06/21/24 06/21/24 Range/Units 04:15 04:15 06:00 WBC 17.1 H (3.8-10.6) k/uL RBC 3.21 L (4.30-5.90) m/uL Hgb 9.6 L (13.0-17.5) gm/dL Hct 29.5 L (39.0-53.0) % Neutrophils # 15.6 H (1.3-7.7) k/uL Lymphocytes # 0.5 L (1.0-4.8) k/uL ABG pH (7.35-7.45) ABG pO2 (83-108) mmHg ABG HCO3 (21-25) mmol/L ABG Total CO2 (19-24) mmol/L Hemoglobin (13.0-17.5) gm/dL Carbon Dioxide 39 H (22-30) mmol/L BUN 88 H (9-20) mg/dL Creatinine 1.78 H (0.66-1.25) mg/dL Glucose 125 H (74-99) mg/dL POC Glucose (mg/dL) 137 H (70-110) mg/dL Calcium 8.0 L (8.4-10.2) mg/dL Microbiology - Last 24 Hours (Table) 06/15/24 09:30 Blood Culture - Final Blood 06/19/24 15:30 Gram Stain - Preliminary Sputum Sputum Culture - Preliminary Natalie albicans Assessment and Plan Plan: Assessment: 1. Acute kidney injury secondary to ATN secondary to septic shock. Creatinine peaked at 2.94 this admission. Renal function worse from diuresis today. Nonoliguric. Baseline creatinine near 1. No hydronephrosis noted on kidney ultrasound. 2. Septic shock secondary to pneumonia. Blood culture positive for strep and staph. Sputum culture positive for strep and Natalie. Also influenza A positive. 3. Hyperkalemia secondary to acute kidney injury, hyperglycemia and catabolic state. Improved. 4. Hypernatremia from lack of oral water intake and free water diuresis. Improved with water flushes and D5W. D5W now discontinued. 5. Acute hypoxic respiratory failure. Status post tracheostomy and PEG tube placement June 20, 2024. 6. Metabolic alkalosis with respiratory alkalosis. Plan: Maintain IV Lasix. Decrease dose to 60 mg IV twice daily. Maintain water flushes with tube feeds 400 cc every 4 hours. Add Diamox 250 mg IV twice daily. Blood glucose control. Tube feeds with low potassium. Continue to monitor renal function and urine output. Repeat chest x-ray. Repeat albumin level.
--- NOTE | 2024-06-21 10:09 | P.PN ---
Subjective Progress Note Date: 06/21/24 SURGICAL PROGRESS NOTE CHIEF COMPLAINT: Respiratory failure HISTORY OF PRESENT ILLNESS: Patient is postop day# 1 status post tracheostomy and PEG tube placement. Patient does have a air leak at the tracheostomy site. Respiratory therapy has applied more fluid to the balloon. Still having difficulty with holding the volumes. Afebrile. WBC 17.1 Hgb 9.6 platelets 269 PHYSICAL EXAM: VITAL SIGNS: Reviewed. GENERAL: Well-developed in no acute distress. HEENT: Tracheostomy site clean and dry. Evidence of air leak. ABDOMEN: Soft. Nondistended. PEG tube site clean dry and intact ASSESSMENT: 1. Acute hypoxic respiratory failure with pneumonia and influenza A 2. Severe protein calorie malnutrition PLAN: -Continue to monitor tracheostomy site. Trach needs to be advanced deeper per Dr. Huynh. Discussed this with ICU nurse who is awaiting chest x-ray report. And then will discuss with critical care service about advancing trach. -Consult dietitian to start tube feedings around 4:00 this afternoon Physician Environmental Services Tech note has been reviewed by physician. Signing provider agrees with the documented findings, assessment, and plan of care. Objective - Vital Signs Vital signs: Vital Signs Temp 99.4 F 06/21/24 08:00 Pulse 94 06/21/24 08:30 Resp 36 H 06/21/24 08:30 BP 128/58 06/21/24 08:30 Pulse Ox 99 06/21/24 08:30 FiO2 50 06/21/24 08:00 Intake & Output 06/20/24 06/21/24 06/21/24 18:59 06:59 18:59 Intake Total 593.546 521.941 182 Output Total 7408 9095 375 Balance -1916.454 -3553.059 -193 Weight 120.8 kg 112.9 kg 112.9 kg Intake: IV 192 192 182 .9 @ KVO 120 120 20 0.9 Nomal Saline Pressure 72 72 12 Bag Fluconazole in NaCl,Iso- 100 Osm 200 mg In Saline 1 100ml.bag @ 100 mls/hr IVPB DAILY [facility] Rx#: [id number] cefTRIAXone 2 gm In 50 Sodium Chloride 0.9% 50 ml @ 100 mls/hr IVPB Q24HR [facility] Rx#:[id number] Intake, IV Titration 341.546 329.941 Amount Norepinephrine 8 mg In 74.488 96.999 Sodium Chloride 0.9% 250 ml @ 0.03 MCG/KG/MIN 6. 589 mls/hr IV .Q24H [facility] Rx#:[id number] propofoL 1,000 mg In 267.058 232.942 Empty Bag 1 bag @ 15 MCG/ KG/MIN 8.981 mls/hr IV . Q11H9M [facility] Rx#:[id number] Other 60 Output: Urine 2500 4075 375 Estimated Blood Loss 10 Other: Voiding Method Indwelling Catheter Indwelling Catheter Indwelling Catheter ABP, PAP, CO, CI - Last Documented Arterial Blood Pressure 106/50 - Labs CBC & Chem 7: 06/21/24 04:15 06/21/24 04:15 Labs: Abnormal Lab Results - Last 24 Hours (Table) 06/20/24 06/21/24 06/21/24 Range/Units 18:25 00:12 04:11 WBC (3.8-10.6) k/uL RBC (4.30-5.90) m/uL Hgb (13.0-17.5) gm/dL Hct (39.0-53.0) % Neutrophils # (1.3-7.7) k/uL Lymphocytes # (1.0-4.8) k/uL ABG pH 7.49 H (7.35-7.45) ABG pO2 80 L (83-108) mmHg ABG HCO3 33 H (21-25) mmol/L ABG Total CO2 35 H (19-24) mmol/L Hemoglobin 8.8 L (13.0-17.5) gm/dL Carbon Dioxide (22-30) mmol/L BUN (9-20) mg/dL Creatinine (0.66-1.25) mg/dL Glucose (74-99) mg/dL POC Glucose (mg/dL) 123 H 132 H (70-110) mg/dL Calcium (8.4-10.2) mg/dL 06/21/24 06/21/24 06/21/24 Range/Units 04:15 04:15 06:00 WBC 17.1 H (3.8-10.6) k/uL RBC 3.21 L (4.30-5.90) m/uL Hgb 9.6 L (13.0-17.5) gm/dL Hct 29.5 L (39.0-53.0) % Neutrophils # 15.6 H (1.3-7.7) k/uL Lymphocytes # 0.5 L (1.0-4.8) k/uL ABG pH (7.35-7.45) ABG pO2 (83-108) mmHg ABG HCO3 (21-25) mmol/L ABG Total CO2 (19-24) mmol/L Hemoglobin (13.0-17.5) gm/dL Carbon Dioxide 39 H (22-30) mmol/L BUN 88 H (9-20) mg/dL Creatinine 1.78 H (0.66-1.25) mg/dL Glucose 125 H (74-99) mg/dL POC Glucose (mg/dL) 137 H (70-110) mg/dL Calcium 8.0 L (8.4-10.2) mg/dL Microbiology - Last 24 Hours (Table) 06/15/24 09:30 Blood Culture - Final Blood 06/19/24 15:30 Gram Stain - Preliminary Sputum Sputum Culture - Preliminary Natalie albicans
--- NOTE | 2024-06-21 10:13 | XR ---
EXAMINATION TYPE: XR chest 1V portable DATE OF EXAM: 06/21/2024 CLINICAL HISTORY: Difficulty breathing progress study. Hypoxemia TECHNIQUE: Single AP portable upright view of the chest is obtained. COMPARISON: Chest x-ray from one day earlier and older study FINDINGS: Interval removal of endotracheal and orogastric tubes. Stable left-sided subclavian centra l venous catheter. There is new tracheostomy tube satisfactory in position. Persistent left greater than right bilateral lower lung increased opacities and small bilateral pleu ral effusions. Cardiac silhouette size is stable and within normal limits. Osseous structures are int act. IMPRESSION: Persistent bilateral lower lung acute infiltrates and/or edema with small bilateral pleur al effusions. No significant change from one day earlier. [facility], , 06/21/2024 10:10 AM
--- NOTE | 2024-06-21 12:35 | XR ---
EXAMINATION TYPE: XR chest 1V DATE OF EXAM: 06/21/2024 CLINICAL HISTORY: PICC line placement. TECHNIQUE: Single AP portable upright view of the chest is obtained. COMPARISON: Chest x-ray from earlier today. FINDINGS: New right-sided PICC line terminates in SVC. No pneumothorax is seen. Stable tracheostomy tube. Stable left-sided subclavian central venous catheter. Persistent bilateral multifocal increased opacities and small bilateral pleural effusions. Cardiac s ilhouette size is stable and within normal limits. Osseous structures are intact. IMPRESSION: As above. [facility], , 06/21/2024 12:33 PM
--- NOTE | 2024-06-21 12:59 | P.PN ---
Subjective Progress Note Date: 06/21/24 Hospital Course: Patient is a 69-year-old male with past medical history of A-fib status post a blation, hypertension. History obtained from chart review. Per ER note, EMS was called by patient's family for shortness of breath, family reported that multiple family members were sick in the house. They noted his SpO2 to be in 60s on placed him on CPAP with no improvement and he continued to breathe rapidly, spiking fever Initially, patient was placed on BiPAP for hypoxia, remained tachypneic and in respiratory distress despite BiPAP. Patient spent 1-1/2-hour on BiPAP with no improvement in his respiratory status, therefore, decision was made to intubate on 06/10, and was sedated, paralyzed, and transferred to ICU. Started on treatment for acute hypoxic respiratory failure secondary to bilateral pneumonia, influenza A pneumonia with cefepime, vancomycin; tamiflu, and solumedrol. Repeat chest x-ray showed diffuse pulmonary infiltrates and blood gases showed severe acidosis with pH of 7.05, patient was started on bicarb drip overnight, his blood pressure dropped requiring pressors. Hospital course complicated by oliguric renal failure. Nephrology consulted, kidney ultrasound and UA ordered, showed no obstruction or hydronephrosis. Nephrology also was following for hyperkalemia and hyponatremia, patient was started on Lokelma, continued on IV Lasix, recommended water flushes with tube feeds 400 cc every 4 hours. Blood cultures growing strep pneumo, antibiotics de-escalated to ceftriaxone 2 g daily. Cardiology consulted for A-fib with RVR, patient started on amiodarone drip, then switched to oral amiodarone starting as well as heparin gtt. Also hospital course was complicated by acute anemia, LDH 320, haptoglobin elevated, hematuria on UA.D-dimer elevated, but Fibrinogen normal, PTT elevated, PT/INR normal. 06/19, Levophed off, PEEP down to 12 06/20: Levo 0.04, PEEP down to 10, PEG and trach tubes in place, Diamox once 06/21 levo stopped, Lasix decreased to 60 IV twice daily due to worsening kidney function, started on Diamox to 15 IV twice daily, plan to start tube feeding around 4 PM Pertinent Imaging: Persistent infiltrates bilaterally, bilateral pleural effusions Subjective: Intubated and sedated Vitals Signs Reviewed. General: [Intubated, sedated, obese Derm: [warm], [dry] Head: [atraumatic], [normocephalic], [symmetric], trach tube in place Eyes: [EOMI], [no lid lag], [anicteric sclera] Mouth: [no lip lesion], [mucus membranes moist] Cardiovascular: [S1S2 reg], [no murmur] Lungs bilateral air entry appreciated, diminished breath sounds in the bases Abdominal: [soft], [ nontender to palpation], [no guarding], [no appreciable organomegaly], PEG tube in place Ext: [no gross muscle atrophy], [2-3+ bilateral lower extremity edema], [no contractures] Neuro: Intubated, sedated Psych: Sedated, sedated Data Reviewed Today: Pertinent Labs: WBC up to 17.1, hemoglobin stable at 9.6, platelet count normal, VBG with pH of 7.49, pCO2 44, pO2 80, sodium and potassium normal, bicarb 39, BUN 88 and creatinine 1.78, blood glucose is well-controlled. Assessment and Plan: Septic shock secondary with Acute Hypoxemic Respiratory Failure Community-acquired strep pneumo pneumonia, influenza A infection Strep pneumo bacteremia -Vent settings per ICU: currently being weaned down PEEP 18-->16-->14-->12->6, FiO2 70%-->60%-->50% -Continue ceftriaxone 2 g daily, antibiotics SOT 06/10, repeat cultures sputum showing yeast, PMNs -Remains on solumedrol 40 every 12 hours -Complete chemical -Continue DuoNebs q4 hours -Status post PEG tube placement 06/20 tube feeding to be started 24 hours after procedure, plan for trach placement -Levo on hold Steroid induced hyperglycemia Prediabetes -SSI, Accu-Cheks every 6 hours, - Levemir 25 units twice daily - Lispro 5 units q6h JACQUES -qualifies for metformin on discharge if kidney function recovers enough, otherwise defer to outpatient follow up Acute Anemia -retic count is 1.1 (hypoproliferative) -FOBT ordered -LDH 320, haptoglobin high -repeat UA shows moderate blood, 59 RBC, occasional uric acid crystals -D-dimer elevated, but Fibrinogen normal, PTT elevated, PT/INR normal -consider discontinuing heparin gtt if continued drop in hgb Acute Kidney Injury secondary to ATN, initially oliguric Hyperkalemia resolved Hypernatremia secondary to free water deficit Metabolic Alkalosis -Nephrology following -Goal potassium tube feeding -B6 decreased to 60 mg IV twice daily instead of 40 mg IV twice daily, nephrology added Diamox 250 IV twice daily -Na improving, FWF - 400cc q4h Persistent A-fib status post ablation : -Continue heparin drip, -Amiodarone p.o. 400 twice daily, Lopressor 25 twice daily. -Cardiology following History of hypertension: GERD: Left forehead lipoma Obesity, Class III -Home medications reviewed and reconciled GI PPx: Stress ulcer prophylaxis with IV Protonix CODE STATUS: default full code DVT prophylaxis: Heparin drip Anticipated discharge date: tbd Anticipated discharge place: tbd Objective - Vital Signs Vital signs: Vital Signs Temp 99.1 F 06/21/24 12:00 Pulse 92 06/21/24 12:00 Resp 29 H 06/21/24 12:00 BP 135/65 06/21/24 11:30 Pulse Ox 98 06/21/24 12:00 FiO2 50 06/21/24 12:55 Intake & Output 06/20/24 06/21/24 06/21/24 18:59 06:59 18:59 Intake Total 593.546 521.941 333.782 Output Total 8940 3705 1525 Balance -1806.454 -3553.059 -1191.218 Weight 120.8 kg 112.9 kg 112.9 kg Intake: IV 192 192 230 .9 @ KVO 120 120 50 0.9 Nomal Saline Pressure 72 72 30 Bag Fluconazole in NaCl,Iso- 100 Osm 200 mg In Saline 1 100ml.bag @ 100 mls/hr IVPB DAILY JACQUES Rx#: [id number] cefTRIAXone 2 gm In 50 Sodium Chloride 0.9% 50 ml @ 100 mls/hr IVPB Q24HR JACQUES Rx#:[id number] Intake, IV Titration 341.546 329.941 103.782 Amount Norepinephrine 8 mg In 74.488 96.999 Sodium Chloride 0.9% 250 ml @ 0.03 MCG/KG/MIN 6. 589 mls/hr IV .Q24H JACQUES Rx#:[id number] propofoL 1,000 mg In 267.058 232.942 103.782 Empty Bag 1 bag @ 15 MCG/ KG/MIN 8.981 mls/hr IV . Q11H9M [facility] Rx#:[id number] Other 60 Output: Urine 2500 4075 1525 Estimated Blood Loss 10 Other: Voiding Method Indwelling Catheter Indwelling Catheter Indwelling Catheter ABP, PAP, CO, CI - Last Documented Arterial Blood Pressure 127/54 - Labs CBC & Chem 7: 06/21/24 04:15 06/21/24 04:15 Labs: Abnormal Lab Results - Last 24 Hours (Table) 06/20/24 06/21/24 06/21/24 Range/Units 18:25 00:12 04:11 WBC (3.8-10.6) k/uL RBC (4.30-5.90) m/uL Hgb (13.0-17.5) gm/dL Hct (39.0-53.0) % Neutrophils # (1.3-7.7) k/uL Lymphocytes # (1.0-4.8) k/uL ABG pH 7.49 H (7.35-7.45) ABG pO2 80 L (83-108) mmHg ABG HCO3 33 H (21-25) mmol/L ABG Total CO2 35 H (19-24) mmol/L Hemoglobin 8.8 L (13.0-17.5) gm/dL Carbon Dioxide (22-30) mmol/L BUN (9-20) mg/dL Creatinine (0.66-1.25) mg/dL Glucose (74-99) mg/dL POC Glucose (mg/dL) 123 H 132 H (70-110) mg/dL Calcium (8.4-10.2) mg/dL 06/21/24 06/21/24 06/21/24 Range/Units 04:15 04:15 06:00 WBC 17.1 H (3.8-10.6) k/uL RBC 3.21 L (4.30-5.90) m/uL Hgb 9.6 L (13.0-17.5) gm/dL Hct 29.5 L (39.0-53.0) % Neutrophils # 15.6 H (1.3-7.7) k/uL Lymphocytes # 0.5 L (1.0-4.8) k/uL ABG pH (7.35-7.45) ABG pO2 (83-108) mmHg ABG HCO3 (21-25) mmol/L ABG Total CO2 (19-24) mmol/L Hemoglobin (13.0-17.5) gm/dL Carbon Dioxide 39 H (22-30) mmol/L BUN 88 H (9-20) mg/dL Creatinine 1.78 H (0.66-1.25) mg/dL Glucose 125 H (74-99) mg/dL POC Glucose (mg/dL) 137 H (70-110) mg/dL Calcium 8.0 L (8.4-10.2) mg/dL Microbiology - Last 24 Hours (Table) 06/15/24 09:30 Blood Culture - Final Blood 06/19/24 15:30 Gram Stain - Preliminary Sputum Sputum Culture - Preliminary Natalie albicans
--- NOTE | 2024-06-21 13:00 | P.PN ---
Subjective Progress Note Date: 06/21/24 Principal diagnosis: Acute hypoxic respiratory failure with sepsis secondary to streptococcal pneumonia 69-year-old male patient came into the emergency department for shortness of breath. According to the significant other, the patient was sick approximately a week ago and his condition has been progressively getting worse. The patient has been falling. He has been having difficulties in keeping himself up and moving around over the past 24 hours. Based on that, he came into the emergency department. His initial pulse ox was 60% and he was placed on a BiPAP and rapi dly following that, the patient was intubated and placed on the mechanical ventilator. Chest x-ray at time of admission showed extensive pneumonia with left upper lobe consolidation and air bronchograms and bibasilar pulmonary infiltrates. Patient tested positive for influenza A. Postintubation, the patient's blood gases showed a pH of 7.36 with a pCO2 of 43 and pO2 of 60. Nevertheless, by the time he arrived to the ICU, the patient was again hypoxic with a pulse ox of 78%. Necessary ventilator changes were done and currently the patient is in a rate of 26, tidal volume of 375, PEEP of 24 with an FiO2 of 100% and expiratory pause of 0.2 ms. The blood gas showed a pH of 7.16 with a pCO2 of 77 and pO2 of 66. Triple-lumen catheter was established in the left IJ. Arterial line was also established. The patient is currently on Tamiflu. He was also started on broad-spectrum antibiotics utilizing a combination of cefepime Zithromax and vancomycin. Started on systemic steroids. Hem odynamically stable. No hypotension. Cardiac rhythm is sinus. According to the significant other, he has history of paroxysmal atrial fibrillation and the patient has undergone ablation. Cardiac rhythm is sinus. He also has hypertension. He is a former smoker. Does not utilize any form of oxygen therapy or inhalers on outpatient basis. No history of bronchial asthma. No history of COPD. No history of any congestion or heart failure. The white cell count of 15.3 with hemoglobin 15.8 and a platelet count of 265. Normal coagulation profile. BUN is 63 with a creatinine 1.42 and a sodium levels at 140 with a potassium level of 4.5. Initial lactic acid level was at 3.8 and dropped down to 2.0. The patient is currently on normal saline at rate of 100 cc an hour. Furthermore, he is sedated with propofol and paralytics with Bumex. In the intensive care unit. 06/14/2024, the patient is being seen for a follow-up. Remains intubated on the mechanical ventilator. This morning, the patient is off paralytics and the patient remains on propofol running at 65 mcg/kg/min. Remains on mechanical ventilator assist-control mode rate of 34, tidal volume of 450, FiO2 of 70% with a PEEP of 18. Blood gas showed a pH of 7.28 with a pCO2 of 59 and pO2 of 89. The patient remains hypotensive and remains on norepinephrine. The patient will be taken off vasopressin. Norepinephrine is running at 0.15 mcg/kg/min. Chest x-ray still showing stable bilateral pulmonary consolidation more extensive in the right lower lobe and the left upper lobe. Remains atrial fibrillation. Remains on IV Rocephin. Continues to receive enteral feeding for nutritional support. Remains on IV heparin regarding his ongoing atrial fibrillation. The WBC count is at 18, still elevated with a hemoglobin 10.3 and a platelet count of 193. Sodium is at 141, potassium is 5.1, bicarb is 27, BUN is 124 and creatinine is at 2.76. Despite ongoing renal failure, the patient is producing urine output. The patient was given Lasix and he continues to receive Lasix 80 mg on a daily basis. Rest of the medications remain unchanged. Completing course of Tamiflu. Remains on IV Rocephin. Remains on a combination of metoprolol 25 mg twice daily and amiodarone 4 mg p.o. twice daily for rate control. 06/15/2024, the patient is being seen for a follow-up. Remains intubated on mechanical ventilator. Remains sedated on propofol. Off paralytics and slightly asynchronous mechanical ventilator. May need fentanyl. Will continue monitoring his progress. Remains intubated on mechanical ventilator assist- control mode at rate of 36, tidal volume of 450, FiO2 of 70% with a PEEP of 18. Blood gas showed pH of 7.28 with a pCO2 of 64 pO2 of 106. Peak airway pressure is 36. Remains on norepinephrine running at 0.2 mcg/kg/min. Remains on vital HP at rate of 35 cc an hour. Follow-up chest x-ray done today shows improvement in the left upper lobe and right lower lobe pulmonary infiltrates. White cell count is at 19 with a hemoglobin 9.6 and a platelet count of 217. Sodium is at 146, potassium is at 5.7, chloride is 108, BUN is 140 with a creatinine of 2.5. Blood sugar is 200. Calcium level is at 7.4. Did have a episode of fever with a Tmax of 101.3. Remains on Lasix 80 mg IV every 24 hours. Fluid balance is +1.1 L over the past 24 hours and the patient has produced more than 2 L of urine output for yesterday. On 06/16/2024, patient is being seen for a follow-up. The patient remains on mechanical ventilator, sedated with propofol 65 mcg/kg/min and fentanyl at 1 mcg/kg/h. Chest x-ray findings are essentially stable and shows ongoing improvement in bilateral pulmonary infiltrates. Nevertheless, the patient remains intubated on mechanical ventilator. On today's evaluation, he is on assist-control at rate of 34, tidal volume of 450, FiO2 of 50% with a PEEP of 16. Blood gas showed a pH of 7.34 with pCO2 of 64 and pO2 of 79. The patient hemodynamically remains in atrial fibrillation, controlled rate. Vasopressin has been discontinued and norepinephrine has been weaned down to 0.07 mcg/kg/min. Remains on IV Lasix 80 mg every 12 hours. Fluid balance is -1.8 L over the past 24 hours. Remains on IV heparin. Remains on Lantus insulin 25 units daily and vital high-protein at rate of 35 cc an hour. Blood work from today shows a white cell count of 18, hemoglobin 9.1 and platelet count of 206. Sodium is at 151, K is at 5.8, BUN is at 143 with a creatinine of 2.3. Blood sugars at 195. Magnesium level is at 3.8. Calcium level is at 7.3. Patient was seen today on 06/17/2024, remains in the ICU, intubated and mechanically ventilated. Patient is still requiring ventilatory support still requiring hemodynamic support/norepinephrine and he remains quite ill, not ready for any trials of extubation. Patient is on assist-control rate of 34 tidal volume 450 FiO2 50% and PEEP of 16 ABG showed a pO2 of 99 pCO2 64 pH of 7.36. Patient is requiring norepinephrine at 0.03 mcg/kg/min propofol 65 mcg/kg/min Fentanyl 1 mcg/kg/h. Patient is receiving vital HP 35/35. Antibiotics lara he remains on Rocephin patient still on diuretics, seen by nephrology today, and he was placed on Lokelma and insulin was added for hyperkalemia. Patient was initially intubated on 06/10 and today is his seventh day of ventilatory support. Based on physical examination and based on his chest x-ray findings, he remains quite ill and he is not ready for any trials of weaning. Chest x-ray remains quite abnormal and on physical examination he has crackles rhonchi and wheezes noted bilaterally. Patient continues to have leukocytosis with WBC count of 17 hemoglobin is 8.3 D-dimer is 2.25. Sodium is 153 potassium 5.7 patient is on Lokelma, nephrology increased his free water via orogastric tube. Renal profile is abnormal with a BUN of 143 creatinine 2.03 liver enzymes are basically unremarkable LDH however is 320. Chest x-ray showed persistent bilateral multifocal infiltrates and/or atelectasis. But I believe this is mostly infiltrates. Patient was evaluated today on 06/18/2024, remains in the ICU remains intubated and mechanically ventilated still requiring norepinephrine at 0.07 micrograms per kilo per minute for low blood pressure patient remains on assist-control rate of 34 tidal volume 450 FiO2 50% PEEP is 16 and I cut it down to 14 today. ABG showed a pO2 of 100 pCO2 64 pH of 7.38 hence no other changes were made in ventilator settings. Drips lara patient remains on fentanyl at 1 mcg/kg/h propofol 65 mg/kg/min heparin drip, norepinephrine at 0.07 D5W at 75 cc/h Rocephin was renewed today he remains on Lasix 80 mg IV push every 12 hours. Patient is basically about the same, not much has changed between yesterday and today. Chest x-ray continues to show evidence of bilateral multifocal infiltrates and/or atelectasis. No significant change noted in chest x-ray compared to yesterday. Continues to have leukocytosis with WBC of 17.5 hemoglobin is 8.2 sodium is a bit better with sodium of 150 potassium 6.1 being addressed by nephrology BUN is 131 creatinine 1.61 bicarb is 39. Blood sugar is 181. Patient is in sinus rhythm, he is on amiodarone at 400 mg p.o. twice daily, remains on Rocephin remains on Lasix 80 twice daily, on insulin, and on updrafts as well as lactulose. Clearly considering the patient continues to have significantly abnormal chest x-ray and still requiring high PEEP, not ready for any weaning at this point. Patient was seen today on 06/19/2024, remains in the ICU, intubated and mechanically ventilated. Patient could not have mental status assessment yesterday as he seems to get extremely agitated, restless, and hypertensive tachypneic and tachycardic once he is off sedation for mental status assessment. Patient remains on assist-control rate of 34, tidal volume 450 FiO2 50% and PEEP was 14 and I cut it down to 12 today. His ABG showed a pO2 of 95 pCO2 59 pH of 7.44. Remains on fentanyl at 0.5 mcg/kg/h heparin drip, propofol at 55 mcg/kg/min IV fluid 0.9 normal saline at 10 cc/h he is also on Nepro 20/2 0/enteral feeding. Patient has been on Rocephin all along, chest x-ray continues to show multifocal infiltrates, hence I have ordered repeat sputum culture on this patient, may have to consider even bronchoscopy and BAL. In the meantime I believe it is best to continue the same course of treatment and continue supportive care measures as well as mechanical ventilation. Obviously the patient is not anywhere near weaning hence I am recommending surgical evaluation for possible trach and PEG later this week. Yesterday I had a chance to discuss his condition with his family at bedside. WBC count remains high 14.4 hemoglobin is 8 ABG as noted earlier. Electrolytes are better sodium down to 144 potassium 5 BUN remains high at 113 creatinine 1.45 Patient was seen today on 06/20/2024, patient remains on the ICU, intubated and mechanically ventilated, patient is supposed to have tracheostomy and PEG tube placement today. In the meantime the patient remains on assist-control rate of 34 tidal volume 450 FiO2 50% and PEEP 12 and I cut it down to 10. ABG showed a pO2 of 97 pCO2 54 pH of 7.48. Patient is still requiring low-dose of norepinephrine at 0.04 mcg/kg/min his fentanyl is 0.5 mg/kg/h propofol 60 mcg/kg/min patient is receiving Nepro at 20/20. Chest x-ray continues show evidence of bilateral infiltrates. CBC continues to show leukocytosis with WBC count of 16.8 hemoglobin 8.3 PTT is 87 however his heparin now is on hold. Basic metabolic profile is normal bicarb is 38 BUN is 100 creatinine is 1.44. Repeat sputum cultures from yesterday showing mostly yeast and many PMNs, Patient was reevaluated today on 06/21/2024, patient underwent tracheostomy and PEG tube placement yesterday, today we are encountering issues with trach around the tracheostomy and seems to be positional, needed more pressure in the cough. Overall the patient is about the same, remains in the ICU, intubated and mechanically ventilated, unable to assess mental status as he is still sedated and on propofol. His norepinephrine today is on hold. His ventilator settings are assist-control rate 34 tidal volume 450 FiO2 50% and PEEP is now down from 10-6. ABG earlier showed a pO2 of 80 pCO2 44 pH of 7.49, I cut down his rate from 34-30 increases tidal volume to 500 Down FiO2 from 10-6. Adjusted his flow rates, now flow rate is 70 L/min. Patient will definitely need a PICC line today, and will address that accordingly. He remains on heparin which needs to be placed on hold before PICC line is placed. He is on propofol at 50 mcg/kg/min and norepinephrine is now on hold. Nephrology is still diuresing the patient with Lasix and Diamox. Antibiotics lara he is on Rocephin and fluco nazole. Treating mostly Streptococcus pneumonia and Natalie albicans in the sputum. Chest x-ray continues to show multiple multifocal opacities, small bilateral pleural effusions, slight improvement in chest x-ray noted compared to previous x-rays of the chest. Objective - Vital Signs Vital signs: Vital Signs Temp 99.1 F 06/21/24 12:00 Pulse 92 06/21/24 12:00 Resp 29 H 06/21/24 12:00 BP 135/65 06/21/24 11:30 Pulse Ox 98 06/21/24 12:00 FiO2 50 06/21/24 12:00 Intake & Output 06/20/24 06/21/24 06/21/24 18:59 06:59 18:59 Intake Total 593.546 521.941 333.782 Output Total 1632 2465 1525 Balance -1916.454 -3553.059 -1191.218 Weight 120.8 kg 112.9 kg 112.9 kg Intake: IV 192 192 230 .9 @ KVO 120 120 50 0.9 Nomal Saline Pressure 72 72 30 Bag Fluconazole in NaCl,Iso- 100 Osm 200 mg In Saline 1 100ml.bag @ 100 mls/hr IVPB DAILY [facility] Rx#: [id number] cefTRIAXone 2 gm In 50 Sodium Chloride 0.9% 50 ml @ 100 mls/hr IVPB Q24HR JACQU[facility] Rx#:[id number] Intake, IV Titration 341.546 329.941 103.782 Amount Norepinephrine 8 mg In 74.488 96.999 Sodium Chloride 0.9% 250 ml @ 0.03 MCG/KG/MIN 6. 589 mls/hr IV .Q24H JACQU[facility] Rx#:[id number] propofoL 1,000 mg In 267.058 232.942 103.782 Empty Bag 1 bag @ 15 MCG/ KG/MIN 8.981 mls/hr IV . Q11H9M J[facility]QU[facility] Rx#:[id number] Other 60 Output: Urine 2500 4075 1525 Estimated Blood Loss 10 Other: Voiding Method Indwelling Catheter Indwelling Catheter Indwelling Catheter ABP, PAP, CO, CI - Last Documented Arterial Blood Pressure 127/54 - Exam General: Revealed 69-year-old white male, remains intubated and mechanically ventilated Derm: No rashes Head: Atraumatic normocephalic patient has now a tracheostomy in place. And PEG tube. Eyes: PERRLA, EOMI, nonicteric, periorbital swelling is noted Mouth: Normal mucous membranes, tracheostomy noted. Seems to be positional otherwise there is leak around the cuff. Cardiovascular: Distant S1-S2, no S3 gallop, no murmur Lungs: Diminished breath sound bilaterally scattered rhonchi noted Abdominal: Obese soft nontender no rebound no guarding Ext: 2+ bipedal edema Neuro: Could not assess, patient is intubated and sedated Psych: Could not assess patient is intubated and sedated [ - Labs CBC & Chem 7: 06/21/24 04:15 06/21/24 04:15 Labs: Abnormal Lab Results - Last 24 Hours (Table) 06/20/24 06/21/24 06/21/24 Range/Units 18:25 00:12 04:11 WBC (3.8-10.6) k/uL RBC (4.30-5.90) m/uL Hgb (13.0-17.5) gm/dL Hct (39.0-53.0) % Neutrophils # (1.3-7.7) k/uL Lymphocytes # (1.0-4.8) k/uL ABG pH 7.49 H (7.35-7.45) ABG pO2 80 L (83-108) mmHg ABG HCO3 33 H (21-25) mmol/L ABG Total CO2 35 H (19-24) mmol/L Hemoglobin 8.8 L (13.0-17.5) gm/dL Carbon Dioxide (22-30) mmol/L BUN (9-20) mg/dL Creatinine (0.66-1.25) mg/dL Glucose (74-99) mg/dL POC Glucose (mg/dL) 123 H 132 H (70-110) mg/dL Calcium (8.4-10.2) mg/dL 06/21/24 06/21/24 06/21/24 Range/Units 04:15 04:15 06:00 WBC 17.1 H (3.8-10.6) k/uL RBC 3.21 L (4.30-5.90) m/uL Hgb 9.6 L (13.0-17.5) gm/dL Hct 29.5 L (39.0-53.0) % Neutrophils # 15.6 H (1.3-7.7) k/uL Lymphocytes # 0.5 L (1.0-4.8) k/uL ABG pH (7.35-7.45) ABG pO2 (83-108) mmHg ABG HCO3 (21-25) mmol/L ABG Total CO2 (19-24) mmol/L Hemoglobin (13.0-17.5) gm/dL Carbon Dioxide 39 H (22-30) mmol/L BUN 88 H (9-20) mg/dL Creatinine 1.78 H (0.66-1.25) mg/dL Glucose 125 H (74-99) mg/dL POC Glucose (mg/dL) 137 H (70-110) mg/dL Calcium 8.0 L (8.4-10.2) mg/dL Microbiology - Last 24 Hours (Table) 06/15/24 09:30 Blood Culture - Final Blood 06/19/24 15:30 Gram Stain - Preliminary Sputum Sputum Culture - Preliminary Natalie albicans Assessment and Plan Assessment: Impression: Acute hypoxic respiratory failure secondary to bilateral pneumococcal pneumonia and septic shock. Remains intubated and mechanically ventilated Status post tracheostomy and PEG tube placement on 06/20/2024 Bilateral pneumococcal pneumonia, in the setting of acute influenza infection Septic shock, second pneumococcal pneumonia with bacteremia. Acute kidney injury,, likely acute tubular necrosis being followed by nephrology Acute leukocytosis, secondary to above Atrial fibrillation with rapid ventricular response, currently on amiodarone .. Remains on IV heparin. History of hypertension Hypernatremia secondary to free water deficit, improving with free water, resolved Significant yeast noted in the sputum, presently on fluconazole Recommendation: Continue ventilatory support, Continue trach care and PEG tube care Resume nutritional status/enteral feeding via PEG tube later today Continue fluconazole Continue hemodynamic support/norepinephrine and titrate accordingly today, the patient has norepinephrine on hold Continue Lasix, continue Diamox Continue IV Solu-Medrol Continue Rocephin and fluconazole Continue GI and DVT prophylaxis Continue insulin Continue oral amiodarone 400 mg p.o. twice a day, continue heparin Arrange for a PICC line and discontinue central line Sedation interruption holidays/trials Remains critically ill, and prognosis is extremely poor and guarded Critical care time is 33 minutes Time with Patient: Greater than 30
[2024-06-21 13:01] LABS: Glucose,Whole Blood 113 mg/dL (70-110)
--- NOTE | 2024-06-21 14:38 | P.PN ---
Subjective The patient is a 69-year-old male who presented with symptoms of progressive dyspnea, diagnosed with pneumonia and influenza A, requiring mechanical ventilation. Cardiology consultation was requested because of atrial fibrillation. The patient is intubated and sedated. He has a history of atrial fibrillation, status post ablation in January 2024. He was in sinus mechanism on presentation and back in atrial fibrillation at this time with episode of rapid ventricle response. He is on vasopressors. He had an echocardiogram that showed a preserved systolic function, the study was technically difficult. The patient has been anticoagulated as an outpatient. Her chest x-ray shows severe infiltration bilaterally consistent with a pneumonia. Presentation he had evidence of acute renal injury and hypotension related to sepsis. He has been initiated on amiodarone and he is on vasopressin in addition to norepinephrine June 13: The patient remains intubated and sedated. He had episodes of paroxysmal atrial fibrillation. He is in sinus mechanism at this time. He continues to be on norepinephrine. His urine output is stable. His chest x-ray shows bilateral infiltrate consistent with his pneumonia. There is no evidence of ventricular ectopic activity.There is significant worsening of his renal function with a BUN up to 101 with a creatinine of 2.94. Tolerating tube feeding June 14: The patient remains intubated and sedated. He is in atrial fibrillation with controlled ventricular response. He is on the lower dose of norepinephrine. His urine output has been stable and he is tolerating tube feeding. He had no evidence of ventricular ectopic activity. He continues to have significant infiltrate on his chest x-ray. June 15: The patient remains intubated and sedated, he is on the lower PEEP. He jeff nues to be in atrial fibrillation with controlled ventricular response. His urinary output has improved. There is no evidence of ventricular ectopic activity. His chest x-ray continues to show evidence of infiltrate bilaterally. Continues to be on IV heparin. He has worsening of his renal functions. June 16: The patient remains intubated and sedated on PEEP of 16. His dose of Levophed has been decreased. He continues to be on IV diuretics with good urine output. He is in atrial fibrillation with controlled ventricular response but no evidence of ventricular ectopic activity. His chest x-ray continues to show bilateral infiltrate. 06/17 patient seen and examined. Patient remains intubated and sedated. Per nursing has been able to be weaned somewhat on the norepinephrine. Still requiring 50% FiO2 with PEEP of 16. He is getting free water flushes through his OG tube. Good urine output with approximately 100 mL per hour. Creatinine mildly improving to 1.9 and BUN relatively stable. He remains in A. fib with heart rates 80s to 100s. hemoglobin downtrending to 8.3. Per nursing some bruising around his left subclavian central line. 06/18 Patient seen and examined. Patient remains intubated and sedated. Currently undergoing spontaneous breathing trial. Remains in A. fib with heart rates in the 90s to 100s. Creatinine mildly improving to 1.6 however significantly elevated BUN 131. Potassium originally 6.1 however improved to 5.1. He is receiving free water flushes through his G-tube with mild improvement in sodium to 150. Hemoglobin relatively stable at 8.2. Remains on a heparin drip. 06/19 Patient seen and examined. Patient remains intubated and sedated with rates of 34 and PEEP of 12 with FiO2 50%. Remains in A-fib with heart rates in the 90s to 100s. Creatinine improved to 1.4 and sodium improved to 144. CVP readings in the 15 range. 06/20 Patient seen and examined. Patient remains intubated and sedated. PEEP 10 FiO2 50%. BUN improved to 100 and creatinine 1.4. Remains in Afib. He was placed on low-dose norepinephrine and his metoprolol has intermittently been held however heart rates predominantly better controlled more recent in the last 6 hours more in the 70s to 80s.. 06/21 Patient seen and examined. Patient remains on ventilator. He had tracheostomy and PEG tube placement yesterday. No significant bleeding around his tr acheostomy site. Weaning sedation and patient has therefore been more tachycardic in the 100-1 10 range. Creatinine mildly increased at 1.7. Has not been on any further vasopressors PHYSICAL EXAMINATION: vitals reviewed, intubated and sedated LUNGS: Clear to auscultation anteriorly HEART: Irregular rate and rhythm, S1, S2. No S3. Systolic ejection murmur ABDOMEN: Soft, positive bowel sounds, no organomegaly EXTREMETIES: +1 edema IMPRESSION: 1. Acute respiratory failure with bilateral pneumonia and influenza A requiring mechanical ventilation 2. Paroxysmal atrial fibrillation status post ablation in 2023 3. Acute renal injury related to the sepsis and hypotension,, good urine output 4. Leukocytosis 5. Anemia 6. Septic shock on vasoperssors PLAN: Decrease amiodarone to 200 mg twice a day and monitor response. Possibly increase metoprolol if needed if blood pressure can tolerate. Monitor response of weaning sedation. Most of his tachycardia more related to the weaning sed ation. Further recommendations to follow. Likely start anticoagulation with Eliquis 5 mg twice a day if cleared with surgery tonight. Objective - Vital Signs Vital signs: Vital Signs Temp 99.1 F 06/21/24 12:00 Pulse 98 06/21/24 14:00 Resp 29 H 06/21/24 14:00 BP 135/65 06/21/24 11:30 Pulse Ox 99 06/21/24 14:00 FiO2 50 06/21/24 12:55 Intake & Output 06/20/24 06/21/24 06/21/24 18:59 06:59 18:59 Intake Total 593.546 521.941 407.714 Output Total 2510 4075 2325 Balance -1916.454 -3553.059 -1917.286 Weight 120.8 kg 112.9 kg 112.9 kg Intake: IV 192 192 272 .9 @ KVO 120 120 80 0.9 Nomal Saline Pressure 72 72 42 Bag Fluconazole in NaCl,Iso- 100 Osm 200 mg In Saline 1 100ml.bag @ 100 mls/hr IVPB DAILY JACQUES Rx#: [id number] cefTRIAXone 2 gm In 50 Sodium Chloride 0.9% 50 ml @ 100 mls/hr IVPB Q24HR JACQUES Rx#:[id number] Intake, IV Titration 341.546 329.941 135.714 Amount Norepinephrine 8 mg In 74.488 96.999 Sodium Chloride 0.9% 250 ml @ 0.03 MCG/KG/MIN 6. 589 mls/hr IV .Q24H JACQUES Rx#:[id number] propofoL 1,000 mg In 267.058 232.942 135.714 Empty Bag 1 bag @ 15 MCG/ KG/MIN 8.981 mls/hr IV . Q11H9M JACQUES Rx#:[id number] Other 60 Output: Urine 2500 4075 2325 Estimated Blood Loss 10 Other: Voiding Method Indwelling Catheter Indwelling Catheter Indwelling Catheter ABP, PAP, CO, CI - Last Documented Arterial Blood Pressure 131/56 - Labs CBC & Chem 7: 06/21/24 04:15 06/21/24 04:15 Labs: Abnormal Lab Results - Last 24 Hours (Table) 06/20/24 06/21/24 06/21/24 Range/Units 18:25 00:12 04:11 WBC (3.8-10.6) k/uL RBC (4.30-5.90) m/uL Hgb (13.0-17.5) gm/dL Hct (39.0-53.0) % Neutrophils # (1.3-7.7) k/uL Lymphocytes # (1.0-4.8) k/uL ABG pH 7.49 H (7.35-7.45) ABG pO2 80 L (83-108) mmHg ABG HCO3 33 H (21-25) mmol/L ABG Total CO2 35 H (19-24) mmol/L Hemoglobin 8.8 L (13.0-17.5) gm/dL Carbon Dioxide (22-30) mmol/L BUN (9-20) mg/dL Creatinine (0.66-1.25) mg/dL Glucose (74-99) mg/dL POC Glucose (mg/dL) 123 H 132 H (70-110) mg/dL Calcium (8.4-10.2) mg/dL 06/21/24 06/21/24 06/21/24 Range/Units 04:15 04:15 06:00 WBC 17.1 H (3.8-10.6) k/uL RBC 3.21 L (4.30-5.90) m/uL Hgb 9.6 L (13.0-17.5) gm/dL Hct 29.5 L (39.0-53.0) % Neutrophils # 15.6 H (1.3-7.7) k/uL Lymphocytes # 0.5 L (1.0-4.8) k/uL ABG pH (7.35-7.45) ABG pO2 (83-108) mmHg ABG HCO3 (21-25) mmol/L ABG Total CO2 (19-24) mmol/L Hemoglobin (13.0-17.5) gm/dL Carbon Dioxide 39 H (22-30) mmol/L BUN 88 H (9-20) mg/dL Creatinine 1.78 H (0.66-1.25) mg/dL Glucose 125 H (74-99) mg/dL POC Glucose (mg/dL) 137 H (70-110) mg/dL Calcium 8.0 L (8.4-10.2) mg/dL 06/21/24 Range/Units 12:59 WBC (3.8-10.6) k/uL RBC (4.30-5.90) m/uL Hgb (13.0-17.5) gm/dL Hct (39.0-53.0) % Neutrophils # (1.3-7.7) k/uL Lymphocytes # (1.0-4.8) k/uL ABG pH (7.35-7.45) ABG pO2 (83-108) mmHg ABG HCO3 (21-25) mmol/L ABG Total CO2 (19-24) mmol/L Hemoglobin (13.0-17.5) gm/dL Carbon Dioxide (22-30) mmol/L BUN (9-20) mg/dL Creatinine (0.66-1.25) mg/dL Glucose (74-99) mg/dL POC Glucose (mg/dL) 113 H (70-110) mg/dL Calcium (8.4-10.2) mg/dL Microbiology - Last 24 Hours (Table) 06/15/24 09:30 Blood Culture - Final Blood 06/19/24 15:30 Gram Stain - Preliminary Sputum Sputum Culture - Preliminary Natalie albicans
[2024-06-21 17:43] LABS: Glucose,Whole Blood 126 mg/dL (70-110)
[2024-06-21] MEDS: FUROSEMIDE 10 MG/ML 10 ML VIAL IV SCH (21:11)
[2024-06-21 23:43] LABS: Glucose,Whole Blood 147 mg/dL (70-110)
[2024-06-22 04:11] LABS: ABG Base Excess 6.6 mmol/L; ABG HCO3 31 mmol/L (21-25); ABG Oxygen Saturation 97.3 % (94-97); ABG PCO2 43 mmHg (35-45); ABG PH 7.46 (7.35-7.45); ABG PO2 91 mmHg (83-108); ABG TCO2 32 mmol/L (19-24)
[2024-06-22 04:12] LABS: Allen Test Performed? no
[2024-06-22 05:11] LABS: Anisocytosis Slight; Basophils % (A) 0 %; Eosinophils # (A) 0.1 k/uL (0-0.7); Eosinophils % (A) 0 %; HCT 29.9 % (39.0-53.0); HGB 9.2 gm/dL (13.0-17.5); Hypochromasia Slight; Lymphocytes # (A) 0.5 k/uL (1.0-4.8); Lymphocytes % (A) 3 %; MCH 28.9 pg (25.0-35.0); MCHC 30.8 g/dL (31.0-37.0); MCV 93.6 fL (80.0-100.0); Mean Platelet Volume 12.3; Monocytes % (A) 5 %; Neutrophils # (A) 16.7 k/uL (1.3-7.7); Neutrophils % (A) 91 %; Platelet Count 269 k/uL (150-450); RBC 3.19 m/uL (4.30-5.90); RDW 16.5 % (11.5-15.5); WBC 18.3 k/uL (3.8-10.6)
[2024-06-22 05:22] LABS: African American GFR (CKD) 43 (>60 ml/min/1.73 sqM); Anion Gap 7 mmol/L; Blood Urea Nitrogen 86 mg/dL (9-20); Calcium 8.1 mg/dL (8.4-10.2); Carbon Dioxide 32 mmol/L (22-30); Chloride 105 mmol/L (98-107); Glucose 131 mg/dL (74-99); Non-African American GFR(CKD) 37 (>60 ml/min/1.73 sqM); Sodium 144 mmol/L (137-145)
[2024-06-22 05:42] LABS: Glucose,Whole Blood 131 mg/dL (70-110)
--- NOTE | 2024-06-22 07:18 | XR ---
EXAMINATION TYPE: XR chest 1V portable DATE OF EXAM: 06/22/2024 5:27 AM COMPARISON: Multiple radiographs, with the most recent on 06/21/2024 TECHNIQUE: XR chest 1V portable Portable AP radiograph of the chest. CLINICAL INDICATION:Male, 69 years old with history of trach, pneumonia; FINDINGS: Lungs/Pleura: Increasing bibasilar opacities with small bilateral pleural effusions. No pneumothorax. Pulmonary vascularity: Unremarkable. Heart/mediastinum: Cardiomediastinal silhouette is unremarkable. Musculoskeletal: No acute osseous pathology. Other findings: None Lines/Tubes: Tracheostomy cannula is in relatively stable position. Stable right PICC line terminating in the low SVC. Interval removal previously seen left-sided subclavian central venous catheter. IMPRESSION: 1. Increasing bibasilar patchy airspace opacities with small bilateral pleural effusions. 2. Interval removal of left-sided central venous catheter with remaining support lines and tubes sta ble. [facility], , 06/22/2024 7:16 AM
[2024-06-22] MEDS: FUROSEMIDE 10 MG/ML 4 ML VIAL IV SCH (08:59)
[2024-06-22] MEDS: CISATRACURIUM 2 MG/ML 5 ML VIAL IV ONE ×2 (09:40→09:55)
--- NOTE | 2024-06-22 09:40 | P.PN ---
Subjective Patient is seen in follow-up for acute kidney injury. Renal function stable. Off Levophed. On IV Lasix and Diamox. Nonoliguric. Underwent tracheostomy and PEG tube placement June 20, 2024. Receiving tube feeds with water flushes. Sodium level 144. Potassium level normal. Vital signs are stable. General: Resting in bed. HEENT: Tracheostomy noted. LUNGS: Scattered rhonchi. HEART: Rate and Rhythm are regular. ABDOMEN: Soft. Obese. EXTREMITITES: 2+ edema. Scrotal edema noted. Objective - Vital Signs Vital signs: Vital Signs Temp 99.2 F 06/22/24 08:00 Pulse 92 06/22/24 08:00 Resp 29 H 06/22/24 08:00 BP 135/65 06/21/24 20:00 Pulse Ox 99 06/22/24 08:00 FiO2 50 06/22/24 08:00 Intake & Output 06/21/24 06/22/24 06/22/24 18:59 06:59 18:59 Intake Total 126.456 8186.374 448 Output Total 2900 2715 200 Balance -2305.849 -768.626 248 Weight 112.9 kg 109.2 kg Intake: IV 324 179 13 .9 @ KVO 120 140 10 0.9 Nomal Saline Pressure 54 39 3 Bag Fluconazole in NaCl,Iso- 100 Osm 200 mg In Saline 1 100ml.bag @ 100 mls/hr IVPB DAILY JACQUES Rx#: [id number] cefTRIAXone 2 gm In 50 Sodium Chloride 0.9% 50 ml @ 100 mls/hr IVPB Q24HR JACQUES Rx#:[id number] Intake, IV Titration 165.151 112.374 Amount propofoL 1,000 mg In 165.151 112.374 Empty Bag 1 bag @ 15 MCG/ KG/MIN 8.981 mls/hr IV . Q11H9M JACQUES Rx#:[id number] Tube Feeding 105 455 35 Other 1200 400 Output: Urine 2900 2715 200 Other: Voiding Method Indwelling Catheter Indwelling Catheter Indwelling Catheter ABP, PAP, CO, CI - Last Documented Arterial Blood Pressure 121/45 - Labs CBC & Chem 7: 06/22/24 04:40 06/22/24 04:40 Labs: Abnormal Lab Results - Last 24 Hours (Table) 06/21/24 06/21/24 06/21/24 Range/Units 04:15 12:59 17:41 WBC (3.8-10.6) k/uL RBC (4.30-5.90) m/uL Hgb (13.0-17.5) gm/dL Hct (39.0-53.0) % MCHC (31.0-37.0) g/dL RDW (11.5-15.5) % Neutrophils # (1.3-7.7) k/uL Lymphocytes # (1.0-4.8) k/uL ABG pH (7.35-7.45) ABG HCO3 (21-25) mmol/L ABG Total CO2 (19-24) mmol/L ABG O2 Saturation (94-97) % Hemoglobin (13.0-17.5) gm/dL Carbon Dioxide (22-30) mmol/L BUN (9-20) mg/dL Creatinine (0.66-1.25) mg/dL Glucose (74-99) mg/dL POC Glucose (mg/dL) 113 H 126 H (70-110) mg/dL Calcium (8.4-10.2) mg/dL Albumin 2.7 L (3.5-5.0) g/dL 06/21/24 06/22/24 06/22/24 Range/Units 23:41 04:03 04:40 WBC 18.3 H (3.8-10.6) k/uL RBC 3.19 L (4.30-5.90) m/uL Hgb 9.2 L (13.0-17.5) gm/dL Hct 29.9 L (39.0-53.0) % MCHC 30.8 L (31.0-37.0) g/dL RDW 16.5 H (11.5-15.5) % Neutrophils # 16.7 H (1.3-7.7) k/uL Lymphocytes # 0.5 L (1.0-4.8) k/uL ABG pH 7.46 H (7.35-7.45) ABG HCO3 31 H (21-25) mmol/L ABG Total CO2 32 H (19-24) mmol/L ABG O2 Saturation 97.3 H (94-97) % Hemoglobin 9.2 L (13.0-17.5) gm/dL Carbon Dioxide (22-30) mmol/L BUN (9-20) mg/dL Creatinine (0.66-1.25) mg/dL Glucose (74-99) mg/dL POC Glucose (mg/dL) 147 H (70-110) mg/dL Calcium (8.4-10.2) mg/dL Albumin (3.5-5.0) g/dL 06/22/24 06/22/24 Range/Units 04:40 05:40 WBC (3.8-10.6) k/uL RBC (4.30-5.90) m/uL Hgb (13.0-17.5) gm/dL Hct (39.0-53.0) % MCHC (31.0-37.0) g/dL RDW (11.5-15.5) % Neutrophils # (1.3-7.7) k/uL Lymphocytes # (1.0-4.8) k/uL ABG pH (7.35-7.45) ABG HCO3 (21-25) mmol/L ABG Total CO2 (19-24) mmol/L ABG O2 Saturation (94-97) % Hemoglobin (13.0-17.5) gm/dL Carbon Dioxide 32 H (22-30) mmol/L BUN 86 H (9-20) mg/dL Creatinine 1.82 H (0.66-1.25) mg/dL Glucose 131 H (74-99) mg/dL POC Glucose (mg/dL) 131 H (70-110) mg/dL Calcium 8.1 L (8.4-10.2) mg/dL Albumin (3.5-5.0) g/dL Microbiology - Last 24 Hours (Table) 06/19/24 15:30 Gram Stain - Final Sputum Sputum Culture - Final Natalie albicans Assessment and Plan Plan: Assessment: 1. Acute kidney injury secondary to ATN secondary to septic shock. Creatinine peaked at 2.94 this admission. Renal function stable. Creatinine 1.82. Nonoliguric. Baseline creatinine near 1. No hydronephrosis noted on kidney ultrasound. 2. Septic shock secondary to pneumonia. Blood culture positive for strep and staph. Sputum culture positive for strep and Natalie. Also influenza A positive. 3. Hyperkalemia secondary to acute kidney injury, hyperglycemia and catabolic state. Improved. 4. Hypernatremia from lack of oral water intake and free water diuresis. Improved with water flushes and D5W. D5W now discontinued. 5. Acute hypoxic respiratory failure. Status post tracheostomy and PEG tube placement June 20, 2024. 6. Metabolic alkalosis with respiratory alkalosis. Improved with Diamox. Plan: Maintain IV Lasix. Maintain water flushes with tube feeds 400 cc every 4 hours. Maintain Diamox for another day. Blood glucose control. Maintain tube feeds. Continue to monitor renal function and urine output.
--- NOTE | 2024-06-22 10:07 | XR ---
EXAMINATION TYPE: XR chest 1V portable DATE OF EXAM: 06/22/2024 9:56 AM COMPARISON: Chest radiographs from 06/22/2024 TECHNIQUE: XR chest 1V portable Portable AP radiograph of the chest. CLINICAL INDICATION:Male, 69 years old with history of intubation; FINDINGS: Lungs/Pleura: Development of moderate sized bilateral pleural pneumothoraces. No pleural effusions. S imilar right basilar and left midlung patchy airspace opacities. Diffuse interstitial prominence. Heart/mediastinum: Cardiomediastinal silhouette is unremarkable. Musculoskeletal: No acute osseous pathology. Other findings: Development of extensive bilateral subcutaneous emphysema extending into the neck. Lines/Tubes: Endotracheal tube with distal tip 4.8 cm above the marie. Interval removal of tracheostomy cannula. Stable right PICC line terminating in the low SVC. IMPRESSION: 1. Development of moderate-sized bilateral pneumothoraces. 2. Development of extensive bilateral subcutaneous emphysema extending into the neck. 3. Interval removal of tracheostomy tube with placement of an endotracheal tube with distal tip appr oximately 4.8 cm above the marie. Correlate for traumatic intubation. 4. Similar scattered patchy airspace opacities. A [place] critical message alert has been initiated for Haily Roberts via the [employer] Results System on 06/22/2024 10:05 AM. This message alert has been sent to Haily Roberts via the Reasult rences provided by the clinician for the receipt of Radiology Critical Findings. Message ID [id number]. [facility], , 06/22/2024 10:05 AM
--- NOTE | 2024-06-22 10:41 | XR ---
EXAMINATION TYPE: XR chest 1V portable DATE OF EXAM: 06/22/2024 10:28 AM COMPARISON: Multiple radiographs, with the most recent earlier today. TECHNIQUE: XR chest 1V portable Portable AP radiograph of the chest. CLINICAL INDICATION:Male, 69 years old with history of geeta chest tubes; FINDINGS: Lungs/Pleura: Decreasing small bilateral pneumothoraces from prior exam. No pleural effusions. Simila r right basilar and left mid and lower lung patchy airspace opacities. Diffuse interstitial prominenc e. Heart/mediastinum: Cardiomediastinal silhouette is stable size with pneumomediastinum demonstrated. Musculoskeletal: No acute osseous pathology. Other findings: Similar extensive bilateral subcutaneous emphysema extending into the neck. Lines/Tubes: Endotracheal tube with distal tip 4.5 cm above the marie. Stable right PICC line terminating in the low SVC. Interval placement of bilateral chest tubes. IMPRESSION: 1. Decreased small bilateral pneumothoraces status post bilateral chest tube insertion. 2. Pneumomediastinum is retrospectively similar. 3. Similar extensive bilateral subcutaneous emphysema extending into the neck. 4. Stable endotracheal tube. 5. Similar scattered patchy airspace opacities. [facility], , 06/22/2024 10:38 AM
[2024-06-22 11:22] LABS: Glucose,Whole Blood 202 mg/dL (70-110)
--- NOTE | 2024-06-22 12:39 | P.PN ---
Progress Note - Text Progress Note Date: 06/22/24 Event note: When I walked into the ICU this morning, I noted that the patient is mechanically ventilated, however there was significant loss of volume from the tracheostomy site. Patient was not getting his adequate tidal volumes and the volumes range between 75 up to 300. Apparently this happened yesterday , the tracheostomy was positional, and we were able to inflate more pressure into the tracheostomy cuff, and positioned the patient in such a way that there was no more further cuff leak around the tracheostomy cuff. Today the leak seems to be worse, and inspite of positioning the patient, and inspite of inflating more air into the cuff of the tracheostomy itself. Then I recommended removing the tracheostomy and trying to place another tracheostomy tube over a tube changer. Patient was placed in the supine position, and placed a tube changer into the tracheostomy and the old tracheostomy was pulled out over the tube changer attempted to insert a size 9 tracheostomy over the tube changer, however there was significant difficulty trying to slide the tracheostomy down into the proper lumen of that tracheostomy. Mostly because the patient had a fresh tracheostomy only 2 days old. When I removed the tracheostomy altogether, placed a 4 x 4 over the tracheostomy surgical site, and went ahead and used the glide scope, and tried to intubate the patient with a size 8 endotracheal tube. Visualized the vocal cords, I was able to insert the endotracheal tube through the vocal cords, but I could not advance it further down. And there was significant pressure noted upon ambo bagging the patient. Hence this was removed and using the bronchoscope, I was able to insert a size 7.5 endotracheal tube over the bronchoscope using bronchoscope as a stylette. The tube went down all the way beyond the tracheostomy opening, cuff was inflated, and I visually saw the end of the endotracheal tube just above the marie roughly 2.5 to 3 cm above the marie. Cuff was inflated and the tube was connected to mechanical ventilation, and I it was much easier to ambu bag The tube was connected to mechanical ventilation, and the patient was ventilating fine without any loss of volume. However noted that the patient had high peak airway pressure and high plateau pressures chest x-ray immediately after showed bilateral pneumothoraces. It also showed pneumomediastinum hence went ahead and placed a right-sided chest tube and a left-sided chest tube uneventful. Follow-up chest x-ray showed significant improvement with complete resolution of the pneumothoraces, but clearly the patient had subcutaneous air and pneumomediastinum. The chest tubes were connected to Pleur-evac's, and placed on suction. Significant improvement was noted shortly after and his peak airway pressure and his plateau pressures. Came down to 24 and 16 respectively. Discussed the tracheostomy issue with Dr. Huynh who initially performed a tracheostomy and the patient will need to have placement of another tracheostomy by surgery in the next 24 to 48 hours. In the meantime we will continue ventilating the patient through an endotracheal tube.
--- NOTE | 2024-06-22 12:55 | P.PN ---
Subjective Progress Note Date: 06/22/24 Principal diagnosis: Acute hypoxic respiratory failure with sepsis secondary to streptococcal pneumonia 69-year-old male patient came into the emergency department for shortness of breath. According to the significant other, the patient was sick approximately a week ago and his condition has been progressively getting worse. The patient has been falling. He has been having difficulties in keeping himself up and moving around over the past 24 hours. Based on that, he came into the emergency department. His initial pulse ox was 60% and he was placed on a BiPAP and rapi dly following that, the patient was intubated and placed on the mechanical ventilator. Chest x-ray at time of admission showed extensive pneumonia with left upper lobe consolidation and air bronchograms and bibasilar pulmonary infiltrates. Patient tested positive for influenza A. Postintubation, the patient's blood gases showed a pH of 7.36 with a pCO2 of 43 and pO2 of 60. Nevertheless, by the time he arrived to the ICU, the patient was again hypoxic with a pulse ox of 78%. Necessary ventilator changes were done and currently the patient is in a rate of 26, tidal volume of 375, PEEP of 24 with an FiO2 of 100% and expiratory pause of 0.2 ms. The blood gas showed a pH of 7.16 with a pCO2 of 77 and pO2 of 66. Triple-lumen catheter was established in the left IJ. Arterial line was also established. The patient is currently on Tamiflu. He was also started on broad-spectrum antibiotics utilizing a combination of cefepime Zithromax and vancomycin. Started on systemic steroids. Hem odynamically stable. No hypotension. Cardiac rhythm is sinus. According to the significant other, he has history of paroxysmal atrial fibrillation and the patient has undergone ablation. Cardiac rhythm is sinus. He also has hypertension. He is a former smoker. Does not utilize any form of oxygen therapy or inhalers on outpatient basis. No history of bronchial asthma. No history of COPD. No history of any congestion or heart failure. The white cell count of 15.3 with hemoglobin 15.8 and a platelet count of 265. Normal coagulation profile. BUN is 63 with a creatinine 1.42 and a sodium levels at 140 with a potassium level of 4.5. Initial lactic acid level was at 3.8 and dropped down to 2.0. The patient is currently on normal saline at rate of 100 cc an hour. Furthermore, he is sedated with propofol and paralytics with Bumex. In the intensive care unit. 06/14/2024, the patient is being seen for a follow-up. Remains intubated on the mechanical ventilator. This morning, the patient is off paralytics and the patient remains on propofol running at 65 mcg/kg/min. Remains on mechanical ventilator assist-control mode rate of 34, tidal volume of 450, FiO2 of 70% with a PEEP of 18. Blood gas showed a pH of 7.28 with a pCO2 of 59 and pO2 of 89. The patient remains hypotensive and remains on norepinephrine. The patient will be taken off vasopressin. Norepinephrine is running at 0.15 mcg/kg/min. Chest x-ray still showing stable bilateral pulmonary consolidation more extensive in the right lower lobe and the left upper lobe. Remains atrial fibrillation. Remains on IV Rocephin. Continues to receive enteral feeding for nutritional support. Remains on IV heparin regarding his ongoing atrial fibrillation. The WBC count is at 18, still elevated with a hemoglobin 10.3 and a platelet count of 193. Sodium is at 141, potassium is 5.1, bicarb is 27, BUN is 124 and creatinine is at 2.76. Despite ongoing renal failure, the patient is producing urine output. The patient was given Lasix and he continues to receive Lasix 80 mg on a daily basis. Rest of the medications remain unchanged. Completing course of Tamiflu. Remains on IV Rocephin. Remains on a combination of metoprolol 25 mg twice daily and amiodarone 4 mg p.o. twice daily for rate control. 06/15/2024, the patient is being seen for a follow-up. Remains intubated on mechanical ventilator. Remains sedated on propofol. Off paralytics and slightly asynchronous mechanical ventilator. May need fentanyl. Will continue monitoring his progress. Remains intubated on mechanical ventilator assist- control mode at rate of 36, tidal volume of 450, FiO2 of 70% with a PEEP of 18. Blood gas showed pH of 7.28 with a pCO2 of 64 pO2 of 106. Peak airway pressure is 36. Remains on norepinephrine running at 0.2 mcg/kg/min. Remains on vital HP at rate of 35 cc an hour. Follow-up chest x-ray done today shows improvement in the left upper lobe and right lower lobe pulmonary infiltrates. White cell count is at 19 with a hemoglobin 9.6 and a platelet count of 217. Sodium is at 146, potassium is at 5.7, chloride is 108, BUN is 140 with a creatinine of 2.5. Blood sugar is 200. Calcium level is at 7.4. Did have a episode of fever with a Tmax of 101.3. Remains on Lasix 80 mg IV every 24 hours. Fluid balance is +1.1 L over the past 24 hours and the patient has produced more than 2 L of urine output for yesterday. On 06/16/2024, patient is being seen for a follow-up. The patient remains on mechanical ventilator, sedated with propofol 65 mcg/kg/min and fentanyl at 1 mcg/kg/h. Chest x-ray findings are essentially stable and shows ongoing improvement in bilateral pulmonary infiltrates. Nevertheless, the patient remains intubated on mechanical ventilator. On today's evaluation, he is on assist-control at rate of 34, tidal volume of 450, FiO2 of 50% with a PEEP of 16. Blood gas showed a pH of 7.34 with pCO2 of 64 and pO2 of 79. The patient hemodynamically remains in atrial fibrillation, controlled rate. Vasopressin has been discontinued and norepinephrine has been weaned down to 0.07 mcg/kg/min. Remains on IV Lasix 80 mg every 12 hours. Fluid balance is -1.8 L over the past 24 hours. Remains on IV heparin. Remains on Lantus insulin 25 units daily and vital high-protein at rate of 35 cc an hour. Blood work from today shows a white cell count of 18, hemoglobin 9.1 and platelet count of 206. Sodium is at 151, K is at 5.8, BUN is at 143 with a creatinine of 2.3. Blood sugars at 195. Magnesium level is at 3.8. Calcium level is at 7.3. Patient was seen today on 06/17/2024, remains in the ICU, intubated and mechanically ventilated. Patient is still requiring ventilatory support still requiring hemodynamic support/norepinephrine and he remains quite ill, not ready for any trials of extubation. Patient is on assist-control rate of 34 tidal volume 450 FiO2 50% and PEEP of 16 ABG showed a pO2 of 99 pCO2 64 pH of 7.36. Patient is requiring norepinephrine at 0.03 mcg/kg/min propofol 65 mcg/kg/min Fentanyl 1 mcg/kg/h. Patient is receiving vital HP 35/35. Antibiotics lara he remains on Rocephin patient still on diuretics, seen by nephrology today, and he was placed on Lokelma and insulin was added for hyperkalemia. Patient was initially intubated on 06/10 and today is his seventh day of ventilatory support. Based on physical examination and based on his chest x-ray findings, he remains quite ill and he is not ready for any trials of weaning. Chest x-ray remains quite abnormal and on physical examination he has crackles rhonchi and wheezes noted bilaterally. Patient continues to have leukocytosis with WBC count of 17 hemoglobin is 8.3 D-dimer is 2.25. Sodium is 153 potassium 5.7 patient is on Lokelma, nephrology increased his free water via orogastric tube. Renal profile is abnormal with a BUN of 143 creatinine 2.03 liver enzymes are basically unremarkable LDH however is 320. Chest x-ray showed persistent bilateral multifocal infiltrates and/or atelectasis. But I believe this is mostly infiltrates. Patient was evaluated today on 06/18/2024, remains in the ICU remains intubated and mechanically ventilated still requiring norepinephrine at 0.07 micrograms per kilo per minute for low blood pressure patient remains on assist-control rate of 34 tidal volume 450 FiO2 50% PEEP is 16 and I cut it down to 14 today. ABG showed a pO2 of 100 pCO2 64 pH of 7.38 hence no other changes were made in ventilator settings. Drips lara patient remains on fentanyl at 1 mcg/kg/h propofol 65 mg/kg/min heparin drip, norepinephrine at 0.07 D5W at 75 cc/h Rocephin was renewed today he remains on Lasix 80 mg IV push every 12 hours. Patient is basically about the same, not much has changed between yesterday and today. Chest x-ray continues to show evidence of bilateral multifocal infiltrates and/or atelectasis. No significant change noted in chest x-ray compared to yesterday. Continues to have leukocytosis with WBC of 17.5 hemoglobin is 8.2 sodium is a bit better with sodium of 150 potassium 6.1 being addressed by nephrology BUN is 131 creatinine 1.61 bicarb is 39. Blood sugar is 181. Patient is in sinus rhythm, he is on amiodarone at 400 mg p.o. twice daily, remains on Rocephin remains on Lasix 80 twice daily, on insulin, and on updrafts as well as lactulose. Clearly considering the patient continues to have significantly abnormal chest x-ray and still requiring high PEEP, not ready for any weaning at this point. Patient was seen today on 06/19/2024, remains in the ICU, intubated and mechanically ventilated. Patient could not have mental status assessment yesterday as he seems to get extremely agitated, restless, and hypertensive tachypneic and tachycardic once he is off sedation for mental status assessment. Patient remains on assist-control rate of 34, tidal volume 450 FiO2 50% and PEEP was 14 and I cut it down to 12 today. His ABG showed a pO2 of 95 pCO2 59 pH of 7.44. Remains on fentanyl at 0.5 mcg/kg/h heparin drip, propofol at 55 mcg/kg/min IV fluid 0.9 normal saline at 10 cc/h he is also on Nepro 20/2 0/enteral feeding. Patient has been on Rocephin all along, chest x-ray continues to show multifocal infiltrates, hence I have ordered repeat sputum culture on this patient, may have to consider even bronchoscopy and BAL. In the meantime I believe it is best to continue the same course of treatment and continue supportive care measures as well as mechanical ventilation. Obviously the patient is not anywhere near weaning hence I am recommending surgical evaluation for possible trach and PEG later this week. Yesterday I had a chance to discuss his condition with his family at bedside. WBC count remains high 14.4 hemoglobin is 8 ABG as noted earlier. Electrolytes are better sodium down to 144 potassium 5 BUN remains high at 113 creatinine 1.45 Patient was seen today on 06/20/2024, patient remains on the ICU, intubated and mechanically ventilated, patient is supposed to have tracheostomy and PEG tube placement today. In the meantime the patient remains on assist-control rate of 34 tidal volume 450 FiO2 50% and PEEP 12 and I cut it down to 10. ABG showed a pO2 of 97 pCO2 54 pH of 7.48. Patient is still requiring low-dose of norepinephrine at 0.04 mcg/kg/min his fentanyl is 0.5 mg/kg/h propofol 60 mcg/kg/min patient is receiving Nepro at 20/20. Chest x-ray continues show evidence of bilateral infiltrates. CBC continues to show leukocytosis with WBC count of 16.8 hemoglobin 8.3 PTT is 87 however his heparin now is on hold. Basic metabolic profile is normal bicarb is 38 BUN is 100 creatinine is 1.44. Repeat sputum cultures from yesterday showing mostly yeast and many PMNs, Patient was reevaluated today on 06/21/2024, patient underwent tracheostomy and PEG tube placement yesterday, today we are encountering issues with trach around the tracheostomy and seems to be positional, needed more pressure in the cough. Overall the patient is about the same, remains in the ICU, intubated and mechanically ventilated, unable to assess mental status as he is still sedated and on propofol. His norepinephrine today is on hold. His ventilator settings are assist-control rate 34 tidal volume 450 FiO2 50% and PEEP is now down from 10-6. ABG earlier showed a pO2 of 80 pCO2 44 pH of 7.49, I cut down his rate from 34-30 increases tidal volume to 500 Down FiO2 from 10-6. Adjusted his flow rates, now flow rate is 70 L/min. Patient will definitely need a PICC line today, and will address that accordingly. He remains on heparin which needs to be placed on hold before PICC line is placed. He is on propofol at 50 mcg/kg/min and norepinephrine is now on hold. Nephrology is still diuresing the patient with Lasix and Diamox. Antibiotics lara he is on Rocephin and fluco nazole. Treating mostly Streptococcus pneumonia and Natalie albicans in the sputum. Chest x-ray continues to show multiple multifocal opacities, small bilateral pleural effusions, slight improvement in chest x-ray noted compared to previous x-rays of the chest. Patient was seen today on 06/22/2024, patient remains in the ICU, intubated and mechanically ventilated, patient had a very eventful morning this morning, apparently his tracheostomy seems to be not functioning great, and I have attempted to change the tracheostomy over a tube changer, his old tracheostomy was losing lots of volume, and even with multiple positioning and even with inflating the cuff with more air, could not get the patient to have adequate tidal volume. Please refer to the event note done on this patient earlier. At any rate patient is now intubated mechanically ventilated, the old tracheostomy tube was removed, and now he has a size 7.5 endotracheal tube placed and passing the tracheostomy surgical site down close to the marie. He is on assist- control rate of 26 tidal volume 500 FiO2 50% and PEEP of 6 ABG showed a pO2 of 91 pCO2 43 pH of 7.46. Patient remains on propofol, and during the process reintubation in the process of placing chest tubes in this patient, patient had to be placed on Nimbex. However Nimbex will be discontinued and he will be maintained on propofol at 50 mcg/kg/min. His overall clinical status remains very poor, patient is not doing great, and we have not seen any significant improvement since the patient was admitted till now. Remains on Rocephin remains on Lasix 60 mg IV push twice daily remains on propofol, and at 1 point we had to give Nimbex today, patient is off norepinephrine which is presently on hold. Chest x-ray continues show bilateral opacities/multifocal pneumonia. Continues to have leukocytosis with WBC of 18.3 hemoglobin is 9.2 electrolytes are normal BUN is 86 creatinine 1.82 being followed closely by nephrology. Objective - Vital Signs Vital signs: Vital Signs Temp 98.6 F 06/22/24 12:00 Pulse 116 H 06/22/24 12:00 Resp 30 H 06/22/24 12:00 BP 135/65 06/21/24 20:00 Pulse Ox 94 L 06/22/24 12:00 FiO2 50 06/22/24 12:00 Intake & Output 06/21/24 06/22/24 06/22/24 18:59 06:59 18:59 Intake Total 254.489 0466.374 1297.329 Output Total 2900 2715 940 Balance -2305.849 -768.626 357.329 Weight 112.9 kg 109.2 kg Intake: IV 324 179 215 .9 @ KVO 120 140 50 0.9 Nomal Saline Pressure 54 39 15 Bag Fluconazole in NaCl,Iso- 100 100 Osm 200 mg In Saline 1 100ml.bag @ 100 mls/hr IVPB DAILY [facility] Rx#: [id number] cefTRIAXone 2 gm In 50 50 Sodium Chloride 0.9% 50 ml @ 100 mls/hr IVPB Q24HR [facility] Rx#:[id number] Intake, IV Titration 165.151 112.374 57.329 Amount propofoL 1,000 mg In 165.151 112.374 57.329 Empty Bag 1 bag @ 15 MCG/ KG/MIN 8.981 mls/hr IV . [id number] [facility] Rx#:[id number] Tube Feeding 105 455 175 Other 1200 850 Output: Chest Tube Drainage 0 Left Anterior Chest 0 Right Anterior Chest 0 Urine 2900 2715 940 Other: Voiding Method Indwelling Catheter Indwelling Catheter Indwelling Catheter ABP, PAP, CO, CI - Last Documented Arterial Blood Pressure 116/51 - Exam General: Revealed 69-year-old white male, remains intubated and mechanically ventilated Derm: No rashes Head: Atraumatic normocephalic, had his old tracheostomy removed, patient has no endotracheal tube which was placed with the assistance of bronchoscope. This is a size 7.5 endotracheal tube this time and is just above the marie. Left forehead fatty tumor noted. Eyes: PERRLA, EOMI, nonicteric, periorbital swelling is noted, right side more so than the left eye. Patient has upward gaze deviation of his eyes. Which has been present all along. Mouth: Normal mucous membranes, tracheostomy noted. Seems to be positional otherwise there is leak around the cuff. Cardiovascular: Distant S1-S2, no S3 gallop, no murmur Lungs: Diminished breath sound bilaterally scattered rhonchi noted Abdominal: Obese soft nontender no rebound no guarding Ext: 2+ bipedal edema Neuro: Could not assess, patient is intubated and sedated, even and spite of holding sedation intermittently, we have not been able to fully assess mental status on this patient. Psych: Could not assess patient is intubated and sedated [ - Labs CBC & Chem 7: 06/22/24 04:40 06/22/24 04:40 Labs: Abnormal Lab Results - Last 24 Hours (Table) 06/21/24 06/21/24 06/21/24 Range/Units 04:15 12:59 17:41 WBC (3.8-10.6) k/uL RBC (4.30-5.90) m/uL Hgb (13.0-17.5) gm/dL Hct (39.0-53.0) % MCHC (31.0-37.0) g/dL RDW (11.5-15.5) % Neutrophils # (1.3-7.7) k/uL Lymphocytes # (1.0-4.8) k/uL ABG pH (7.35-7.45) ABG HCO3 (21-25) mmol/L ABG Total CO2 (19-24) mmol/L ABG O2 Saturation (94-97) % Hemoglobin (13.0-17.5) gm/dL Carbon Dioxide (22-30) mmol/L BUN (9-20) mg/dL Creatinine (0.66-1.25) mg/dL Glucose (74-99) mg/dL POC Glucose (mg/dL) 113 H 126 H (70-110) mg/dL Calcium (8.4-10.2) mg/dL Albumin 2.7 L (3.5-5.0) g/dL 06/21/24 06/22/24 06/22/24 Range/Units 23:41 04:03 04:40 WBC 18.3 H (3.8-10.6) k/uL RBC 3.19 L (4.30-5.90) m/uL Hgb 9.2 L (13.0-17.5) gm/dL Hct 29.9 L (39.0-53.0) % MCHC 30.8 L (31.0-37.0) g/dL RDW 16.5 H (11.5-15.5) % Neutrophils # 16.7 H (1.3-7.7) k/uL Lymphocytes # 0.5 L (1.0-4.8) k/uL ABG pH 7.46 H (7.35-7.45) ABG HCO3 31 H (21-25) mmol/L ABG Total CO2 32 H (19-24) mmol/L ABG O2 Saturation 97.3 H (94-97) % Hemoglobin 9.2 L (13.0-17.5) gm/dL Carbon Dioxide (22-30) mmol/L BUN (9-20) mg/dL Creatinine (0.66-1.25) mg/dL Glucose (74-99) mg/dL POC Glucose (mg/dL) 147 H (70-110) mg/dL Calcium (8.4-10.2) mg/dL Albumin (3.5-5.0) g/dL 06/22/24 06/22/24 06/22/24 Range/Units 04:40 05:40 11:20 WBC (3.8-10.6) k/uL RBC (4.30-5.90) m/uL Hgb (13.0-17.5) gm/dL Hct (39.0-53.0) % MCHC (31.0-37.0) g/dL RDW (11.5-15.5) % Neutrophils # (1.3-7.7) k/uL Lymphocytes # (1.0-4.8) k/uL ABG pH (7.35-7.45) ABG HCO3 (21-25) mmol/L ABG Total CO2 (19-24) mmol/L ABG O2 Saturation (94-97) % Hemoglobin (13.0-17.5) gm/dL Carbon Dioxide 32 H (22-30) mmol/L BUN 86 H (9-20) mg/dL Creatinine 1.82 H (0.66-1.25) mg/dL Glucose 131 H (74-99) mg/dL POC Glucose (mg/dL) 131 H 202 H (70-110) mg/dL Calcium 8.1 L (8.4-10.2) mg/dL Albumin (3.5-5.0) g/dL Microbiology - Last 24 Hours (Table) 06/19/24 15:30 Gram Stain - Final Sputum Sputum Culture - Final Natalie albicans Assessment and Plan Assessment: Impression: Acute hypoxic respiratory failure secondary to bilateral pneumococcal pneumonia and septic shock. Remains intubated and mechanically ventilated Status post tracheostomy and PEG tube placement on 06/20/2024 Bilateral pneumococcal pneumonia, in the setting of acute influenza infection Septic shock, second pneumococcal pneumonia with bacteremia. Acute kidney injury,, likely acute tubular necrosis being followed by nephrology Acute leukocytosis, secondary to above Atrial fibrillation with rapid ventricular response, currently on amiodarone .. Remains on IV heparin. History of hypertension Hypernatremia secondary to free water deficit, improving with free water, resolved Significant yeast noted in the sputum, presently on fluconazole Status post removal of old tracheostomy because of air leak around the cuff and was not functioning properly. 06/22/2024 Status post reintubation after the tracheostomy was removed on 06/22/2024 Bilateral pneumothorax and pneumomediastinum with subcutaneous emphysema secondary to barotrauma requiring bilateral chest tube placement on 06/22/2024. Recommendation: Continue ventilatory support, Resume nutritional status/enteral feeding via PEG tube later today Continue fluconazole Continue hemodynamic support if needed/norepinephrine Continue diuretics Continue systemic steroids/Solu-Medrol Continue Rocephin and fluconazole Continue GI and DVT prophylaxis Continue insulin Continue oral amiodarone 400 mg p.o. twice a day, continue heparin Sedation interruption holidays/trials, will try to do this tomorrow Remains critically ill, and prognosis is extremely poor and guarded Critical care time is 33 minutes, not including the time spent on procedures Time with Patient: Greater than 30
--- NOTE | 2024-06-22 13:18 | P.PN ---
Subjective Progress Note Date: 06/22/24 Hospital Course: Patient is a 69-year-old male with past medical history of A-fib status post a blation, hypertension. History obtained from chart review. Per ER note, EMS was called by patient's family for shortness of breath, family reported that multiple family members were sick in the house. They noted his SpO2 to be in 60s on placed him on CPAP with no improvement and he continued to breathe rapidly, spiking fever Initially, patient was placed on BiPAP for hypoxia, remained tachypneic and in respiratory distress despite BiPAP. Patient spent 1-1/2-hour on BiPAP with no improvement in his respiratory status, therefore, decision was made to intubate on 06/10, and was sedated, paralyzed, and transferred to ICU. Started on treatment for acute hypoxic respiratory failure secondary to bilateral pneumonia, influenza A pneumonia with cefepime, vancomycin; tamiflu, and solumedrol. Repeat chest x-ray showed diffuse pulmonary infiltrates and blood gases showed severe acidosis with pH of 7.05, patient was started on bicarb drip overnight, his blood pressure dropped requiring pressors. Hospital course complicated by oliguric renal failure. Nephrology consulted, kidney ultrasound and UA ordered, showed no obstruction or hydronephrosis. Nephrology also was following for hyperkalemia and hyponatremia, patient was started on Lokelma, continued on IV Lasix, recommended water flushes with tube feeds 400 cc every 4 hours. Blood cultures growing strep pneumo, antibiotics de-escalated to ceftriaxone 2 g daily. Cardiology consulted for A-fib with RVR, patient started on amiodarone drip, then switched to oral amiodarone starting as well as heparin gtt. Also hospital course was complicated by acute anemia, LDH 320, haptoglobin elevated, hematuria on UA.D-dimer elevated, but Fibrinogen normal, PTT elevated, PT/INR normal. 06/19, Levophed off, PEEP down to 12 06/20: Levo 0.04, PEEP down to 10, PEG and trach tubes in place, sputum cx growing Natalie, started on fluconazole 06/21 levo stopped, Lasix decreased to 60 IV twice daily due to worsening kidney function, started on Diamox to 15 IV twice daily, plan to start tube feeding around 4 PM, 06/22: Patient was noted to have late, around his tracheostomy site, permit agent attempted to replace it and encountered a lot of difficulties, balance, tracheostomy was removed. Patient was then intubated, postintubation x-ray roxie wed bilateral pneumothorax and pneumomediastinum, he had bilateral chest tubes placed with resolution of bilateral pneumothorax. Patient will need another tracheostomy. Subjective: Intubated and sedated Vitals Signs Reviewed. General: [Intubated, sedated, obese Derm: [warm], [dry] Head: [atraumatic], [normocephalic], [symmetric], trach tube in place Eyes: [EOMI], [no lid lag], [anicteric sclera] Mouth: [no lip lesion], [mucus membranes moist] Cardiovascular: [S1S2 reg], [no murmur] Lungs bilateral air entry appreciated, bilateral chest tubes in place Abdominal: [soft], [ nontender to palpation], [no guarding], [no appreciable organomegaly], PEG tube in place Ext: [no gross muscle atrophy], [2-3+ bilateral lower extremity edema], [no contractures] Neuro: Intubated, sedated Psych: Sedated, sedated Data Reviewed Today: Pertinent Labs: CBC 18.3, hemoglobin stable 9.2, platelet count normal, VBG with pH of 7.46, pCO2 43, pO2 91, sodium and potassium normal, bicarb 32, creatinine up to 1.82, BUN rising 56, glucose is controlled. Assessment and Plan: Septic shock secondary with Acute Hypoxemic Respiratory Failure Community-acquired strep pneumo pneumonia, influenza A infection Strep pneumo bacteremia Natalie in sputum cultures S/p tracheostomy and PEG on 06/20/2024, tracheostomy removed on 06/22/24 secondary to leak Bilateral pneumothorax, pneumomediastinum s/p bilateral chest tube 06/22/24 -Vent settings per ICU: -Continue ceftriaxone 2 g daily, antibiotics SOT 06/10, repeat cultures sputum showing Natalie, started on fluconazole on 06/20 -Remains on solumedrol 40 every 12 hours -Complete chemical -Continue DuoNebs q4 hours -Status post PEG tube placement 06/20 tube feeding to be started 24 hours after procedure, plan for trach placement -Levo on hold Steroid induced hyperglycemia Prediabetes -SSI, Accu-Cheks every 6 hours, - Levemir 25 units twice daily - Lispro 5 units q6h JACQUES -qualifies for metformin on discharge if kidney function recovers enough, otherwise defer to outpatient follow up Acute Anemia, stable -retic count is 1.1 (hypoproliferative) -FOBT ordered -LDH 320, haptoglobin high -repeat UA shows moderate blood, 59 RBC, occasional uric acid crystals -D-dimer elevated, but Fibrinogen normal, PTT elevated, PT/INR normal -consider discontinuing heparin gtt if continued drop in hgb Acute Kidney Injury secondary to ATN, initially oliguric Hyperkalemia resolved Hypernatremia secondary to free water deficit Metabolic Alkalosis -Nephrology following -Goal potassium tube feeding -Lasix now decreased to 40 IV twice daily due to rising creatinine, nephrology added Diamox 250 IV twice daily -Na improving, FWF - 400cc q4h Persistent A-fib status post ablation : -Continue heparin drip, -Amiodarone p.o. 400 twice daily, Lopressor 25 twice daily. -Cardiology following History of hypertension: GERD: Left forehead lipoma Obesity, Class III -Home medications reviewed and reconciled GI PPx: Stress ulcer prophylaxis with IV Protonix CODE STATUS: default full code DVT prophylaxis: Heparin drip Anticipated discharge date: tbd Anticipated discharge place: tbd Objective - Vital Signs Vital signs: Vital Signs Temp 98.6 F 06/22/24 12:00 Pulse 116 H 06/22/24 12:00 Resp 30 H 06/22/24 12:00 BP 135/65 06/21/24 20:00 Pulse Ox 94 L 06/22/24 12:00 FiO2 50 06/22/24 12:00 Intake & Output 06/21/24 06/22/24 06/22/24 18:59 06:59 18:59 Intake Total 963.591 2834.374 1297.329 Output Total 2900 2715 940 Balance -2305.849 -768.626 357.329 Weight 112.9 kg 109.2 kg Intake: IV 324 179 215 .9 @ KVO 120 140 50 0.9 Nomal Saline Pressure 54 39 15 Bag Fluconazole in NaCl,Iso- 100 100 Osm 200 mg In Saline 1 100ml.bag @ 100 mls/hr IVPB DAILY JACQUES Rx#: [id number] cefTRIAXone 2 gm In 50 50 Sodium Chloride 0.9% 50 ml @ 100 mls/hr IVPB Q24HR JACQUES Rx#:[id number] Intake, IV Titration 165.151 112.374 57.329 Amount propofoL 1,000 mg In 165.151 112.374 57.329 Empty Bag 1 bag @ 15 MCG/ KG/MIN 8.981 mls/hr IV . Q11H9M JACQUES Rx#:[id number] Tube Feeding 105 455 175 Other 1200 850 Output: Chest Tube Drainage 0 Left Anterior Chest 0 Right Anterior Chest 0 Urine 2900 2715 940 Other: Voiding Method Indwelling Catheter Indwelling Catheter Indwelling Catheter ABP, PAP, CO, CI - Last Documented Arterial Blood Pressure 116/51 - Labs CBC & Chem 7: 06/22/24 04:40 06/22/24 04:40 Labs: Abnormal Lab Results - Last 24 Hours (Table) 06/21/24 06/21/24 06/21/24 Range/Units 04:15 17:41 23:41 WBC (3.8-10.6) k/uL RBC (4.30-5.90) m/uL Hgb (13.0-17.5) gm/dL Hct (39.0-53.0) % MCHC (31.0-37.0) g/dL RDW (11.5-15.5) % Neutrophils # (1.3-7.7) k/uL Lymphocytes # (1.0-4.8) k/uL ABG pH (7.35-7.45) ABG HCO3 (21-25) mmol/L ABG Total CO2 (19-24) mmol/L ABG O2 Saturation (94-97) % Hemoglobin (13.0-17.5) gm/dL Carbon Dioxide (22-30) mmol/L BUN (9-20) mg/dL Creatinine (0.66-1.25) mg/dL Glucose (74-99) mg/dL POC Glucose (mg/dL) 126 H 147 H (70-110) mg/dL Calcium (8.4-10.2) mg/dL Albumin 2.7 L (3.5-5.0) g/dL 06/22/24 06/22/24 06/22/24 Range/Units 04:03 04:40 04:40 WBC 18.3 H (3.8-10.6) k/uL RBC 3.19 L (4.30-5.90) m/uL Hgb 9.2 L (13.0-17.5) gm/dL Hct 29.9 L (39.0-53.0) % MCHC 30.8 L (31.0-37.0) g/dL RDW 16.5 H (11.5-15.5) % Neutrophils # 16.7 H (1.3-7.7) k/uL Lymphocytes # 0.5 L (1.0-4.8) k/uL ABG pH 7.46 H (7.35-7.45) ABG HCO3 31 H (21-25) mmol/L ABG Total CO2 32 H (19-24) mmol/L ABG O2 Saturation 97.3 H (94-97) % Hemoglobin 9.2 L (13.0-17.5) gm/dL Carbon Dioxide 32 H (22-30) mmol/L BUN 86 H (9-20) mg/dL Creatinine 1.82 H (0.66-1.25) mg/dL Glucose 131 H (74-99) mg/dL POC Glucose (mg/dL) (70-110) mg/dL Calcium 8.1 L (8.4-10.2) mg/dL Albumin (3.5-5.0) g/dL 06/22/24 06/22/24 Range/Units 05:40 11:20 WBC (3.8-10.6) k/uL RBC (4.30-5.90) m/uL Hgb (13.0-17.5) gm/dL Hct (39.0-53.0) % MCHC (31.0-37.0) g/dL RDW (11.5-15.5) % Neutrophils # (1.3-7.7) k/uL Lymphocytes # (1.0-4.8) k/uL ABG pH (7.35-7.45) ABG HCO3 (21-25) mmol/L ABG Total CO2 (19-24) mmol/L ABG O2 Saturation (94-97) % Hemoglobin (13.0-17.5) gm/dL Carbon Dioxide (22-30) mmol/L BUN (9-20) mg/dL Creatinine (0.66-1.25) mg/dL Glucose (74-99) mg/dL POC Glucose (mg/dL) 131 H 202 H (70-110) mg/dL Calcium (8.4-10.2) mg/dL Albumin (3.5-5.0) g/dL Microbiology - Last 24 Hours (Table) 06/19/24 15:30 Gram Stain - Final Sputum Sputum Culture - Final Natalie albicans
--- NOTE | 2024-06-22 13:26 | OP ---
OPERATIVE REPORT DATE OF SERVICE : PROCEDURE PERFORMED: Placement of a right-sided chest tube. PREOPERATIVE DIAGNOSIS: Right-sided pneumothorax, most likely secondary to barotrauma. POSTOPERATIVE DIAGNOSIS: Right-sided pneumothorax, most likely secondary to barotrauma. ANESTHESIA USED: The patient was on propofol and he was also on Nimbex prior to the procedure. DESCRIPTION OF PROCEDURE: The patient was placed in the supine position, the area at the level of the 5th intercostal space was prepared in a sterile fashion. Drapes were applied. At that same site, a small tiny 1.0 cm incision was made, and I was able to dissect the subcutaneous tissue with my index finger until I was able to enter the pleural space using a Genesis forceps. A gush of air was noted as soon as the pleural space was entered. Then, a size 28 argyle chest tube was inserted and was pointed apically. The tube was sutured to the chest wall, to the skin area using 0.0 Ethibond sutures. Chest x-ray postoperatively showed adequate placement of the tube, and complete resolution of the right-sided pneumothorax. Procedure was well tolerated. MMODL / IJN: [id number] /
--- NOTE | 2024-06-22 13:35 | OP ---
OPERATIVE REPORT DATE OF SERVICE : PROCEDURE PERFORMED: Intubation using a bronchoscope. ANESTHESIA USED: The patient was already on propofol, and was sedated with propofol. Did not use Nimbex for the procedure. DESCRIPTION OF PROCEDURE: The patient was placed in a supine position, the bronchoscope was inserted. The bronchoscope was a disposable bronchoscope, and I was able to use a 7.5 endotracheal tube, which was already inserted over the bronchoscope itself. Then, the bronchoscope was inserted through the mouth down to the area of the vocal cords, these were visualized, and as the vocal cords were visualized, I was able to enter the glottic opening and enlarged the tip of the bronchoscope down in the distal trachea. Over the bronchoscope, the 7.5 endotracheal tube was advanced easily without any difficulty, and I was able to pass the area of the tracheostomy opening, distal down to the distal trachea where the cuff was inflated and I was visualizing the marie just below the tip of the endotracheal tube. The cuff was inflated at that point, the bronchoscope came out, and I was able to ventilate the patient easily without any difficulty. Followup chest x-ray showed adequate placement of the endotracheal tube, but it did show evidence of bilateral pneumothoraces, which were most likely felt to be related to barotrauma. Please refer to my event note regarding his tracheostomy. Again, procedure was well tolerated, no complications in inserting the 7.5 endotracheal tube. MMODL / IJN: [id number] /
--- NOTE | 2024-06-22 14:23 | P.PN ---
Subjective The patient is a 69-year-old male who presented with symptoms of progressive dyspnea, diagnosed with pneumonia and influenza A, requiring mechanical ventilation. Cardiology consultation was requested because of atrial fibrillation. The patient is intubated and sedated. He has a history of atrial fibrillation, status post ablation in January 2024. He was in sinus mechanism on presentation and back in atrial fibrillation at this time with episode of rapid ventricle response. He is on vasopressors. He had an echocardiogram that showed a preserved systolic function, the study was technically difficult. The patient has been anticoagulated as an outpatient. Her chest x-ray shows severe infiltration bilaterally consistent with a pneumonia. Presentation he had evidence of acute renal injury and hypotension related to sepsis. He has been initiated on amiodarone and he is on vasopressin in addition to norepinephrine June 13: The patient remains intubated and sedated. He had episodes of paroxysmal atrial fibrillation. He is in sinus mechanism at this time. He continues to be on norepinephrine. His urine output is stable. His chest x-ray shows bilateral infiltrate consistent with his pneumonia. There is no evidence of ventricular ectopic activity.There is significant worsening of his renal function with a BUN up to 101 with a creatinine of 2.94. Tolerating tube feeding June 14: The patient remains intubated and sedated. He is in atrial fibrillation with controlled ventricular response. He is on the lower dose of norepinephrine. His urine output has been stable and he is tolerating tube feeding. He had no evidence of ventricular ectopic activity. He continues to have significant infiltrate on his chest x-ray. June 15: The patient remains intubated and sedated, he is on the lower PEEP. He jeff nues to be in atrial fibrillation with controlled ventricular response. His urinary output has improved. There is no evidence of ventricular ectopic activity. His chest x-ray continues to show evidence of infiltrate bilaterally. Continues to be on IV heparin. He has worsening of his renal functions. June 16: The patient remains intubated and sedated on PEEP of 16. His dose of Levophed has been decreased. He continues to be on IV diuretics with good urine output. He is in atrial fibrillation with controlled ventricular response but no evidence of ventricular ectopic activity. His chest x-ray continues to show bilateral infiltrate. 06/17 patient seen and examined. Patient remains intubated and sedated. Per nursing has been able to be weaned somewhat on the norepinephrine. Still requiring 50% FiO2 with PEEP of 16. He is getting free water flushes through his OG tube. Good urine output with approximately 100 mL per hour. Creatinine mildly improving to 1.9 and BUN relatively stable. He remains in A. fib with heart rates 80s to 100s. hemoglobin downtrending to 8.3. Per nursing some bruising around his left subclavian central line. 06/18 Patient seen and examined. Patient remains intubated and sedated. Currently undergoing spontaneous breathing trial. Remains in A. fib with heart rates in the 90s to 100s. Creatinine mildly improving to 1.6 however significantly elevated BUN 131. Potassium originally 6.1 however improved to 5.1. He is receiving free water flushes through his G-tube with mild improvement in sodium to 150. Hemoglobin relatively stable at 8.2. Remains on a heparin drip. 06/19 Patient seen and examined. Patient remains intubated and sedated with rates of 34 and PEEP of 12 with FiO2 50%. Remains in A-fib with heart rates in the 90s to 100s. Creatinine improved to 1.4 and sodium improved to 144. CVP readings in the 15 range. 06/20 Patient seen and examined. Patient remains intubated and sedated. PEEP 10 FiO2 50%. BUN improved to 100 and creatinine 1.4. Remains in Afib. He was placed on low-dose norepinephrine and his metoprolol has intermittently been held however heart rates predominantly better controlled more recent in the last 6 hours more in the 70s to 80s.. 06/21 Patient seen and examined. Patient remains on ventilator. He had tracheostomy and PEG tube placement yesterday. No significant bleeding around his tr acheostomy site. Weaning sedation and patient has therefore been more tachycardic in the 100-1 10 range. Creatinine mildly increased at 1.7. Has not been on any further vasopressors 06/22 Patient seen and examined. Patient had issues with his airway with his trach and despite changing out trach had difficulty maintaining airway. Therefore he had endotracheal tube placed. Remains in A-fib with heart rates in the 80s to 90s. He is still on amiodarone 400 mg twice a day. Off of any vasopressors. Remains on vent with FiO2 50% and a PEEP of 6 PHYSICAL EXAMINATION: vitals reviewed, intubated and sedated LUNGS: Clear to auscultation anteriorly HEART: Irregular rate and rhythm, S1, S2. No S3. Systolic ejection murmur ABDOMEN: Soft, positive bowel sounds, no organomegaly EXTREMETIES: +1 edema IMPRESSION: 1. Acute respiratory failure with bilateral pneumonia and influenza A requiring mechanical ventilation 2. Paroxysmal atrial fibrillation status post ablation in 2023 3. Acute renal injury related to the sepsis and hypotension,, good urine output 4. Leukocytosis 5. Anemia 6. Septic shock on vasoperssors PLAN: Amiodarone decreased to 200 mg twice a day. Possibly increase metoprolol depending on his blood pressure. Patient having issues with tracheostomy and therefore continue with heparin drip and until tracheostomy site is healed we will hold on Eliquis. Continue with current supportive care. Objective - Vital Signs Vital signs: Vital Signs Temp 98.6 F 06/22/24 12:00 Pulse 87 06/22/24 14:00 Resp 28 H 06/22/24 14:00 BP 135/65 06/21/24 20:00 Pulse Ox 97 06/22/24 14:00 FiO2 50 06/22/24 12:00 Intake & Output 06/21/24 06/22/24 06/22/24 18:59 06:59 18:59 Intake Total 699.008 9957.374 1393.329 Output Total 2900 2715 1215 Balance -2305.849 -768.626 178.329 Weight 112.9 kg 109.2 kg Intake: IV 324 179 241 .9 @ KVO 120 140 70 0.9 Nomal Saline Pressure 54 39 21 Bag Fluconazole in NaCl,Iso- 100 100 Osm 200 mg In Saline 1 100ml.bag @ 100 mls/hr IVPB DAILY JACQUES Rx#: [id number] cefTRIAXone 2 gm In 50 50 Sodium Chloride 0.9% 50 ml @ 100 mls/hr IVPB Q24HR JACQUES Rx#:[id number] Intake, IV Titration 165.151 112.374 57.329 Amount propofoL 1,000 mg In 165.151 112.374 57.329 Empty Bag 1 bag @ 15 MCG/ KG/MIN 8.981 mls/hr IV . Q11H9M JACQUES Rx#:[id number] Tube Feeding 105 455 245 Other 1200 850 Output: Chest Tube Drainage 0 Left Anterior Chest 0 Right Anterior Chest 0 Urine 2900 2715 1215 Other: Voiding Method Indwelling Catheter Indwelling Catheter Indwelling Catheter ABP, PAP, CO, CI - Last Documented Arterial Blood Pressure 113/45 - Labs CBC & Chem 7: 06/22/24 04:40 06/22/24 04:40 Labs: Abnormal Lab Results - Last 24 Hours (Table) 06/21/24 06/21/24 06/21/24 Range/Units 04:15 17:41 23:41 WBC (3.8-10.6) k/uL RBC (4.30-5.90) m/uL Hgb (13.0-17.5) gm/dL Hct (39.0-53.0) % MCHC (31.0-37.0) g/dL RDW (11.5-15.5) % Neutrophils # (1.3-7.7) k/uL Lymphocytes # (1.0-4.8) k/uL ABG pH (7.35-7.45) ABG HCO3 (21-25) mmol/L ABG Total CO2 (19-24) mmol/L ABG O2 Saturation (94-97) % Hemoglobin (13.0-17.5) gm/dL Carbon Dioxide (22-30) mmol/L BUN (9-20) mg/dL Creatinine (0.66-1.25) mg/dL Glucose (74-99) mg/dL POC Glucose (mg/dL) 126 H 147 H (70-110) mg/dL Calcium (8.4-10.2) mg/dL Albumin 2.7 L (3.5-5.0) g/dL 06/22/24 06/22/24 06/22/24 Range/Units 04:03 04:40 04:40 WBC 18.3 H (3.8-10.6) k/uL RBC 3.19 L (4.30-5.90) m/uL Hgb 9.2 L (13.0-17.5) gm/dL Hct 29.9 L (39.0-53.0) % MCHC 30.8 L (31.0-37.0) g/dL RDW 16.5 H (11.5-15.5) % Neutrophils # 16.7 H (1.3-7.7) k/uL Lymphocytes # 0.5 L (1.0-4.8) k/uL ABG pH 7.46 H (7.35-7.45) ABG HCO3 31 H (21-25) mmol/L ABG Total CO2 32 H (19-24) mmol/L ABG O2 Saturation 97.3 H (94-97) % Hemoglobin 9.2 L (13.0-17.5) gm/dL Carbon Dioxide 32 H (22-30) mmol/L BUN 86 H (9-20) mg/dL Creatinine 1.82 H (0.66-1.25) mg/dL Glucose 131 H (74-99) mg/dL POC Glucose (mg/dL) (70-110) mg/dL Calcium 8.1 L (8.4-10.2) mg/dL Albumin (3.5-5.0) g/dL 06/22/24 06/22/24 Range/Units 05:40 11:20 WBC (3.8-10.6) k/uL RBC (4.30-5.90) m/uL Hgb (13.0-17.5) gm/dL Hct (39.0-53.0) % MCHC (31.0-37.0) g/dL RDW (11.5-15.5) % Neutrophils # (1.3-7.7) k/uL Lymphocytes # (1.0-4.8) k/uL ABG pH (7.35-7.45) ABG HCO3 (21-25) mmol/L ABG Total CO2 (19-24) mmol/L ABG O2 Saturation (94-97) % Hemoglobin (13.0-17.5) gm/dL Carbon Dioxide (22-30) mmol/L BUN (9-20) mg/dL Creatinine (0.66-1.25) mg/dL Glucose (74-99) mg/dL POC Glucose (mg/dL) 131 H 202 H (70-110) mg/dL Calcium (8.4-10.2) mg/dL Albumin (3.5-5.0) g/dL Microbiology - Last 24 Hours (Table) 06/19/24 15:30 Gram Stain - Final Sputum Sputum Culture - Final Natalie albicans
[2024-06-22 17:33] LABS: Glucose,Whole Blood 131 mg/dL (70-110)
--- NOTE | 2024-06-22 17:47 | P.PN ---
Subjective Progress Note Date: 06/22/24 CHIEF COMPLAINT: Hypoxic respiratory failure HISTORY OF PRESENT ILLNESS: The patient is a 69-year-old male in the intensive care unit on a ventilator. Additional history obtained per nursing. Patient had a leak around trach. Trach was removed by landing man with difficulty of placing tracheostomy back. Patient had a bronchoscope for intubation. He then resulted in barotrauma and a pneumothorax. At this time, family at bedside concerns for quality of life issues. ROS: Resolved fevers. No documented bowel movement 24 hours. PHYSICAL EXAM: VITAL SIGNS: Reviewed CONSTITUTIONAL: Well developed and in no acute distress. EYES: Conjuctivae without sclera icterus. Extraocular movements grossly intact. HEAD, EARS, NOSE, THROAT: Moist buccal mucosa. Head is atraumatic, normocephalic. Hears conversational speech. No nasal drainage. RESPIRATORY: Mechanical ventilation with endotracheal tube. CARDIOVASCULAR: Palpable 2+ radial pulses. ABDOMEN: No peritonitis. MUSCULOSKELETAL: No gross deformity of the lower extremities noted. No clubbing. No cyanosis. SKIN: Good skin turgor. Well perfused. NEUROLOGIC: No focal or lateralizing signs. PSYCH: Sedated. CLINICAL LABS: Reviewed. WBC over 18,000. Hemoglobin low 9.2, anemia. ASSESSMENT: 1. Streptococcal pneumonia with acute hypoxic respiratory failure 2. Tracheostomy malfunction 3. Barotrauma with pneumothorax PLAN: 1. At this time, quality of life issues is being assessed by family prior to additional surgical invention. Objective - Vital Signs Vital signs: Vital Signs Temp 98.6 F 06/22/24 12:00 Pulse 86 06/22/24 17:00 Resp 29 H 06/22/24 17:00 BP 135/65 06/21/24 20:00 Pulse Ox 99 06/22/24 17:00 FiO2 50 06/22/24 15:49 Intake & Output 06/21/24 06/22/24 06/22/24 18:59 06:59 18:59 Intake Total 700.213 6916.374 2024.545 Output Total 2900 0005 1755 Balance -4625.849 -768.626 269.545 Weight 112.9 kg 109.2 kg Intake: IV 324 179 280 .9 @ KVO 120 140 100 0.9 Nomal Saline Pressure 54 39 30 Bag Fluconazole in NaCl,Iso- 100 100 Osm 200 mg In Saline 1 100ml.bag @ 100 mls/hr IVPB DAILY JACQUES Rx#: [id number] cefTRIAXone 2 gm In 50 50 Sodium Chloride 0.9% 50 ml @ 100 mls/hr IVPB Q24HR JACQUES Rx#:[id number] Intake, IV Titration 165.151 112.374 144.545 Amount propofoL 1,000 mg In 165.151 112.374 144.545 Empty Bag 1 bag @ 15 MCG/ KG/MIN 8.981 mls/hr IV . Q11H9M JACQUES Rx#:[id number] Tube Feeding 105 455 350 Other 1200 1250 Output: Chest Tube Drainage 15 Left Anterior Chest 15 Right Anterior Chest 0 Urine 2900 2715 1740 Other: Voiding Method Indwelling Catheter Indwelling Catheter Indwelling Catheter ABP, PAP, CO, CI - Last Documented Arterial Blood Pressure 118/48 - Labs CBC & Chem 7: 06/22/24 04:40 06/22/24 04:40 Labs: Abnormal Lab Results - Last 24 Hours (Table) 06/21/24 06/22/24 06/22/24 Range/Units 23:41 04:03 04:40 WBC 18.3 H (3.8-10.6) k/uL RBC 3.19 L (4.30-5.90) m/uL Hgb 9.2 L (13.0-17.5) gm/dL Hct 29.9 L (39.0-53.0) % MCHC 30.8 L (31.0-37.0) g/dL RDW 16.5 H (11.5-15.5) % Neutrophils # 16.7 H (1.3-7.7) k/uL Lymphocytes # 0.5 L (1.0-4.8) k/uL ABG pH 7.46 H (7.35-7.45) ABG HCO3 31 H (21-25) mmol/L ABG Total CO2 32 H (19-24) mmol/L ABG O2 Saturation 97.3 H (94-97) % Hemoglobin 9.2 L (13.0-17.5) gm/dL Carbon Dioxide (22-30) mmol/L BUN (9-20) mg/dL Creatinine (0.66-1.25) mg/dL Glucose (74-99) mg/dL POC Glucose (mg/dL) 147 H (70-110) mg/dL Calcium (8.4-10.2) mg/dL 06/22/24 06/22/24 06/22/24 Range/Units 04:40 05:40 11:20 WBC (3.8-10.6) k/uL RBC (4.30-5.90) m/uL Hgb (13.0-17.5) gm/dL Hct (39.0-53.0) % MCHC (31.0-37.0) g/dL RDW (11.5-15.5) % Neutrophils # (1.3-7.7) k/uL Lymphocytes # (1.0-4.8) k/uL ABG pH (7.35-7.45) ABG HCO3 (21-25) mmol/L ABG Total CO2 (19-24) mmol/L ABG O2 Saturation (94-97) % Hemoglobin (13.0-17.5) gm/dL Carbon Dioxide 32 H (22-30) mmol/L BUN 86 H (9-20) mg/dL Creatinine 1.82 H (0.66-1.25) mg/dL Glucose 131 H (74-99) mg/dL POC Glucose (mg/dL) 131 H 202 H (70-110) mg/dL Calcium 8.1 L (8.4-10.2) mg/dL 06/22/24 Range/Units 17:30 WBC (3.8-10.6) k/uL RBC (4.30-5.90) m/uL Hgb (13.0-17.5) gm/dL Hct (39.0-53.0) % MCHC (31.0-37.0) g/dL RDW (11.5-15.5) % Neutrophils # (1.3-7.7) k/uL Lymphocytes # (1.0-4.8) k/uL ABG pH (7.35-7.45) ABG HCO3 (21-25) mmol/L ABG Total CO2 (19-24) mmol/L ABG O2 Saturation (94-97) % Hemoglobin (13.0-17.5) gm/dL Carbon Dioxide (22-30) mmol/L BUN (9-20) mg/dL Creatinine (0.66-1.25) mg/dL Glucose (74-99) mg/dL POC Glucose (mg/dL) 131 H (70-110) mg/dL Calcium (8.4-10.2) mg/dL Microbiology - Last 24 Hours (Table) 06/19/24 15:30 Gram Stain - Final Sputum Sputum Culture - Final Natalie albicans
--- NOTE | 2024-06-22 19:41 | OP ---
OPERATIVE REPORT DATE OF SERVICE : PROCEDURE PERFORMED: Placement of the left-sided chest tube. PREOPERATIVE DIAGNOSIS: Left-sided pneumothorax from barotrauma. POSTOPERATIVE DIAGNOSIS: Left-sided pneumothorax from barotrauma. ANESTHESIA USED: The patient was already on Nimbex and he received propofol prior to the procedure. DESCRIPTION OF PROCEDURE: The patient was placed in the supine position, the area at the level of the 6th intercostal space was prepared in a sterile fashion. Drapes were applied. A small 1.0 cm incision was made at that location, then I was able to dissect the subcutaneous tissue with the index finger and Genesis forceps until the pleural space was entered. A gush of air was noted as soon as the pleural space was entered, I was able to place a size 28 argyle chest tube and the tube was pointed apically. Then the tube was sutured to the skin using 0 Ethibond sutures. Followup chest x-ray showed complete resolution of the pneumothorax, and adequate placement of the left-sided chest tube. No complications. MMODL / IJN: [id number] /
[2024-06-22] MEDS: AMIODARONE 200 MG TAB PO SCH (20:46)
[2024-06-22 23:20] LABS: Glucose,Whole Blood 125 mg/dL (70-110)
[2024-06-23 04:37] LABS: ABG Base Excess 3.8 mmol/L; ABG HCO3 29 mmol/L (21-25); ABG Oxygen Saturation 96.5 % (94-97); ABG PCO2 45 mmHg (35-45); ABG PH 7.42 (7.35-7.45); ABG PO2 85 mmHg (83-108); ABG TCO2 30 mmol/L (19-24); Allen Test Performed? no
[2024-06-23 05:15] LABS: Anisocytosis Slight; Basophils % (A) 0 %; Eosinophils % (A) 0 %; HCT 30.1 % (39.0-53.0); HGB 9.2 gm/dL (13.0-17.5); Hypochromasia Moderate; Lymphocytes # (A) 0.4 k/uL (1.0-4.8); Lymphocytes % (A) 2 %; MCHC 30.5 g/dL (31.0-37.0); MCV 95.2 fL (80.0-100.0); Monocytes % (A) 5 %; Neutrophils # (A) 18.1 k/uL (1.3-7.7); Neutrophils % (A) 92 %; Platelet Count 251 k/uL (150-450); RBC 3.17 m/uL (4.30-5.90); RDW 16.4 % (11.5-15.5); WBC 19.6 k/uL (3.8-10.6)
[2024-06-23 05:16] LABS: Glucose,Whole Blood 141 mg/dL (70-110)
[2024-06-23 05:35] LABS: African American GFR (CKD) 51 (>60 ml/min/1.73 sqM); Anion Gap 8 mmol/L; Blood Urea Nitrogen 82 mg/dL (9-20); Calcium 8.3 mg/dL (8.4-10.2); Carbon Dioxide 28 mmol/L (22-30); Chloride 107 mmol/L (98-107); Glucose 137 mg/dL (74-99); Non-African American GFR(CKD) 44 (>60 ml/min/1.73 sqM); Potassium 3.9 mmol/L (3.5-5.1); Sodium 143 mmol/L (137-145)
[2024-06-23] MEDS: POTASSIUM BICARBONATE/CIT AC 20 MEQ TABLET.EFF NG-TUBE SCH (05:56)
--- NOTE | 2024-06-23 07:33 | XR ---
EXAMINATION TYPE: XR chest 1V portable DATE OF EXAM: 06/23/2024 3:34 AM COMPARISON: Multiple radiographs, with the most recent on 06/22/2024. TECHNIQUE: XR chest 1V portable Portable AP radiograph of the chest. CLINICAL INDICATION:Male, 69 years old with history of intubated; FINDINGS: Lungs/Pleura: Trace bilateral pleural effusions. Trace bilateral pneumothoraces which is improved fro m prior exam. Similar right basilar and left mid and lower lung patchy airspace opacities. Diffuse in terstitial prominence. Heart/mediastinum: Cardiomediastinal silhouette is stable size. Atherosclerotic calcifications are s een in the aorta. Musculoskeletal: No acute osseous pathology. Other findings: Decreasing subcutaneous emphysema from prior exam. Lines/Tubes: Endotracheal tube with distal tip 4.5 cm above the marie. Stable right PICC line terminating in the low SVC. Stable bilateral chest tubes. IMPRESSION: 1. Improving now trace bilateral pneumothoraces with stable chest tubes. 2. Improving subcutaneous emphysema. 3. Stable support lines and tubes. 4. Similar scattered patchy airspace opacities. 5. Trace bilateral pleural effusions. [facility], , 06/23/2024 7:31 AM
--- NOTE | 2024-06-23 09:54 | P.PN ---
Subjective Patient is seen in follow-up for acute kidney injury. Renal function better. Off Levophed. On IV Lasix and Diamox. Bicarb level trending down. Nonoliguric. Reintubated yesterday. Receiving tube feeds with water flushes. Sodium level 143. Vital signs are stable. General: Resting in bed. HEENT: Intubated. LUNGS: Scattered rhonchi. HEART: Rate and Rhythm are regular. ABDOMEN: Soft. Obese. EXTREMITITES: 2+ edema. Scrotal edema noted. Objective - Vital Signs Vital signs: Vital Signs Temp 98.6 F 06/23/24 08:00 Pulse 93 06/23/24 09:00 Resp 27 H 06/23/24 09:00 BP 142/69 06/23/24 08:30 Pulse Ox 98 06/23/24 09:00 FiO2 45 06/23/24 09:02 Intake & Output 06/22/24 06/23/24 06/23/24 18:59 06:59 18:59 Intake Total 2072.545 1922.693 687.889 Output Total 2055 2350 410 Balance 17.545 -427.307 277.889 Weight 109.6 kg Intake: IV 293 156 189 .9 @ KVO 110 120 30 0.9 Nomal Saline Pressure 33 36 9 Bag Fluconazole in NaCl,Iso- 100 100 Osm 200 mg In Saline 1 100ml.bag @ 100 mls/hr IVPB DAILY JACQUES Rx#: [id number] cefTRIAXone 2 gm In 50 50 Sodium Chloride 0.9% 50 ml @ 100 mls/hr IVPB Q24HR JACQUES Rx#:[id number] Intake, IV Titration 144.545 146.693 28.889 Amount propofoL 1,000 mg In 144.545 146.693 28.889 Empty Bag 1 bag @ 15 MCG/ KG/MIN 8.981 mls/hr IV . Q11H9M JACQUES Rx#:[id number] Tube Feeding 385 420 70 Other 1250 1200 400 Output: Chest Tube Drainage 65 35 0 Left Anterior Chest 55 25 0 Right Anterior Chest 10 10 0 Urine 1990 2315 410 Other: Voiding Method Indwelling Catheter Indwelling Catheter Indwelling Catheter ABP, PAP, CO, CI - Last Documented Arterial Blood Pressure 125/45 - Labs CBC & Chem 7: 06/23/24 05:00 06/23/24 05:00 Labs: Abnormal Lab Results - Last 24 Hours (Table) 06/22/24 06/22/24 06/22/24 Range/Units 11:20 17:30 23:17 WBC (3.8-10.6) k/uL RBC (4.30-5.90) m/uL Hgb (13.0-17.5) gm/dL Hct (39.0-53.0) % MCHC (31.0-37.0) g/dL RDW (11.5-15.5) % Neutrophils # (1.3-7.7) k/uL Lymphocytes # (1.0-4.8) k/uL ABG HCO3 (21-25) mmol/L ABG Total CO2 (19-24) mmol/L Hemoglobin (13.0-17.5) gm/dL BUN (9-20) mg/dL Creatinine (0.66-1.25) mg/dL Glucose (74-99) mg/dL POC Glucose (mg/dL) 202 H 131 H 125 H (70-110) mg/dL Calcium (8.4-10.2) mg/dL 06/23/24 06/23/24 06/23/24 Range/Units 03:55 05:00 05:00 WBC 19.6 H (3.8-10.6) k/uL RBC 3.17 L (4.30-5.90) m/uL Hgb 9.2 L (13.0-17.5) gm/dL Hct 30.1 L (39.0-53.0) % MCHC 30.5 L (31.0-37.0) g/dL RDW 16.4 H (11.5-15.5) % Neutrophils # 18.1 H (1.3-7.7) k/uL Lymphocytes # 0.4 L (1.0-4.8) k/uL ABG HCO3 29 H (21-25) mmol/L ABG Total CO2 30 H (19-24) mmol/L Hemoglobin 9.2 L (13.0-17.5) gm/dL BUN 82 H (9-20) mg/dL Creatinine 1.58 H (0.66-1.25) mg/dL Glucose 137 H (74-99) mg/dL POC Glucose (mg/dL) (70-110) mg/dL Calcium 8.3 L (8.4-10.2) mg/dL 06/23/24 Range/Units 05:14 WBC (3.8-10.6) k/uL RBC (4.30-5.90) m/uL Hgb (13.0-17.5) gm/dL Hct (39.0-53.0) % MCHC (31.0-37.0) g/dL RDW (11.5-15.5) % Neutrophils # (1.3-7.7) k/uL Lymphocytes # (1.0-4.8) k/uL ABG HCO3 (21-25) mmol/L ABG Total CO2 (19-24) mmol/L Hemoglobin (13.0-17.5) gm/dL BUN (9-20) mg/dL Creatinine (0.66-1.25) mg/dL Glucose (74-99) mg/dL POC Glucose (mg/dL) 141 H (70-110) mg/dL Calcium (8.4-10.2) mg/dL Assessment and Plan Plan: Assessment: 1. Acute kidney injury secondary to ATN secondary to septic shock. Creatinine peaked at 2.94 this admission. Renal function better. Creatinine 1.5 today. Nonoliguric. Baseline creatinine near 1. No hydronephrosis noted on kidney ultrasound. 2. Septic shock secondary to pneumonia. Blood culture positive for strep and staph. Sputum culture positive for strep and Natalie. Also influenza A positive. 3. Hyperkalemia secondary to acute kidney injury, hyperglycemia and catabolic state. Improved. 4. Hypernatremia from lack of oral water intake and free water diuresis. Improved with water flushes and D5W. D5W now discontinued. 5. Acute hypoxic respiratory failure. Status post tracheostomy and PEG tube placement June 20, 2024. Had to be reintubated June 22, 2024. 6. Metabolic alkalosis with respiratory alkalosis. Improved with Diamox. Plan: Maintain IV Lasix. Maintain water flushes with tube feeds 400 cc every 4 hours. Stop Diamox. Blood glucose control. Continue to monitor renal function and urine output.
--- NOTE | 2024-06-23 10:21 | P.PN ---
Subjective Progress Note Date: 06/23/24 Hospital Course: Patient is a 69-year-old male with past medical history of A-fib status post a blation, hypertension. History obtained from chart review. Per ER note, EMS was called by patient's family for shortness of breath, family reported that multiple family members were sick in the house. They noted his SpO2 to be in 60s on placed him on CPAP with no improvement and he continued to breathe rapidly, spiking fever Initially, patient was placed on BiPAP for hypoxia, remained tachypneic and in respiratory distress despite BiPAP. Patient spent 1-1/2-hour on BiPAP with no improvement in his respiratory status, therefore, decision was made to intubate on 06/10, and was sedated, paralyzed, and transferred to ICU. Started on treatment for acute hypoxic respiratory failure secondary to bilateral pneumonia, influenza A pneumonia with cefepime, vancomycin; tamiflu, and solumedrol. Repeat chest x-ray showed diffuse pulmonary infiltrates and blood gases showed severe acidosis with pH of 7.05, patient was started on bicarb drip overnight, his blood pressure dropped requiring pressors. Hospital course complicated by oliguric renal failure. Nephrology consulted, kidney ultrasound and UA ordered, showed no obstruction or hydronephrosis. Nephrology also was following for hyperkalemia and hyponatremia, patient was started on Lokelma, continued on IV Lasix, recommended water flushes with tube feeds 400 cc every 4 hours. Blood cultures growing strep pneumo, antibiotics de-escalated to ceftriaxone 2 g daily. Cardiology consulted for A-fib with RVR, patient started on amiodarone drip, then switched to oral amiodarone starting as well as heparin gtt. Also hospital course was complicated by acute anemia, LDH 320, haptoglobin elevated, hematuria on UA.D-dimer elevated, but Fibrinogen normal, PTT elevated, PT/INR normal. 06/19, Levophed off, PEEP down to 12 06/20: Levo 0.04, PEEP down to 10, PEG and trach tubes in place, sputum cx growing Natalie, started on fluconazole 06/21 levo stopped, Lasix decreased to 60 IV twice daily due to worsening kidney function, started on Diamox to 15 IV twice daily, plan to start tube feeding around 4 PM, 06/22: Patient was noted to have leak, around his tracheostomy site, circulation analyst attempted to replace it and encountered a lot of difficulties, balance, tracheostomy was removed. Patient was then intubated, postintubation x-ray roxie wed bilateral pneumothorax and pneumomediastinum, he had bilateral chest tubes placed with resolution of bilateral pneumothorax. Patient will need another tracheostomy if family desires 06/23: X-ray showing improving bilateral pneumothoraces and subcutaneous emphysema, similar scattered patchy airspace opacities and trace bilateral pleural effusions. Patient is afebrile, did not require levo. Family wants to discussed with circulation analyst patient's prognosis to decide whether the want to proceed with another tracheostomy Subjective: Intubated and sedated Vitals Signs Reviewed. General: [Intubated, sedated, obese Derm: [warm], [dry], subcutaneous emphysema Head: [atraumatic], [normocephalic], [symmetric], trach tube in place Eyes: [EOMI], [no lid lag], [anicteric sclera] Mouth: [no lip lesion], [mucus membranes moist] Cardiovascular: [S1S2 reg], [no murmur] Lungs bilateral air entry appreciated, bilateral chest tubes in place Abdominal: [soft], [ nontender to palpation], [no guarding], [no appreciable organomegaly], PEG tube in place Ext: [no gross muscle atrophy], [2-3+ bilateral lower extremity edema], [no contractures] Neuro: Intubated, sedated Psych: Sedated, sedated Data Reviewed Today: Pertinent Labs: Leukocytosis 19.6, hemoglobin 11.3, platelet count normal, pH on ABG 7.42, pCO2 45.0-85, sodium and potassium normal, creatinine improved to 1.58, blood glucose is controlled. Assessment and Plan: Septic shock secondary with Acute Hypoxemic Respiratory Failure Community-acquired strep pneumo pneumonia, influenza A infection Strep pneumo bacteremia Natalie in sputum cultures S/p tracheostomy and PEG on 06/20/2024, tracheostomy removed on 06/22/24 secondary to leak Bilateral pneumothorax, pneumomediastinum s/p bilateral chest tube 06/22/24 -Vent settings per ICU: FiO2 45%, PEEP of 5 -Continue ceftriaxone 2 g daily, antibiotics SOT 06/10, repeat cultures sputum sh owing Natalie, started on fluconazole on 06/20 -Remains on solumedrol 40 every 12 hours -Complete chemical -Continue DuoNebs q4 hours -Status post PEG tube placement 06/20 tube feeding to be started 24 hours after procedure, s/p tracheostomy placement and removal due to leak, possible replacement of tracheostomy ADLs -Levo on hold Steroid induced hyperglycemia Prediabetes -SSI, Accu-Cheks every 6 hours, - Levemir 25 units twice daily - Lispro 5 units q6h JACQUES -qualifies for metformin on discharge if kidney function recovers enough, otherwise defer to outpatient follow up Acute Anemia, stable -retic count is 1.1 (hypoproliferative) -FOBT ordered -LDH 320, haptoglobin high -repeat UA shows moderate blood, 59 RBC, occasional uric acid crystals -D-dimer elevated, but Fibrinogen normal, PTT elevated, PT/INR normal -consider discontinuing heparin gtt if continued drop in hgb Acute Kidney Injury secondary to ATN, initially oliguric Hyperkalemia resolved Hypernatremia secondary to free water deficit Metabolic Alkalosis -Nephrology following -Goal potassium tube feeding -Lasix 40 IV twice , nephrology stopped Diamox 250 IV twice daily -Na normal, FWF - 400cc q4h Persistent A-fib status post ablation : -Continue heparin drip, -Amiodarone p.o. 200 twice daily, Lopressor 25 twice daily. -Cardiology following History of hypertension: GERD: Left forehead lipoma Obesity, Class III -Home medications reviewed and reconciled GI PPx: Stress ulcer prophylaxis with IV Protonix CODE STATUS: default full code DVT prophylaxis: Heparin drip Anticipated discharge date: tbd Anticipated discharge place: tbd Objective - Vital Signs Vital signs: Vital Signs Temp 98.6 F 06/23/24 08:00 Pulse 87 06/23/24 10:00 Resp 23 06/23/24 10:00 BP 144/70 06/23/24 09:30 Pulse Ox 95 06/23/24 10:00 FiO2 45 06/23/24 09:02 Intake & Output 06/22/24 06/23/24 06/23/24 18:59 06:59 18:59 Intake Total 2072.545 1922.693 735.889 Output Total 9012 1760 885 Balance 17.545 -427.307 -149.111 Weight 109.6 kg Intake: IV 293 156 202 .9 @ KVO 110 120 40 0.9 Nomal Saline Pressure 33 36 12 Bag Fluconazole in NaCl,Iso- 100 100 Osm 200 mg In Saline 1 100ml.bag @ 100 mls/hr IVPB DAILY JACQUES Rx#: [id number] cefTRIAXone 2 gm In 50 50 Sodium Chloride 0.9% 50 ml @ 100 mls/hr IVPB Q24HR JACQUES Rx#:[id number] Intake, IV Titration 144.545 146.693 28.889 Amount propofoL 1,000 mg In 144.545 146.693 28.889 Empty Bag 1 bag @ 15 MCG/ KG/MIN 8.981 mls/hr IV . Q11H9M JACQUES Rx#:[id number] Tube Feeding 385 420 105 Other 1250 1200 400 Output: Chest Tube Drainage 65 35 0 Left Anterior Chest 55 25 0 Right Anterior Chest 10 10 0 Urine 1990 2315 885 Other: Voiding Method Indwelling Catheter Indwelling Catheter Indwelling Catheter ABP, PAP, CO, CI - Last Documented Arterial Blood Pressure 146/50 - Labs CBC & Chem 7: 06/23/24 05:00 06/23/24 05:00 Labs: Abnormal Lab Results - Last 24 Hours (Table) 06/22/24 06/22/24 06/22/24 Range/Units 11:20 17:30 23:17 WBC (3.8-10.6) k/uL RBC (4.30-5.90) m/uL Hgb (13.0-17.5) gm/dL Hct (39.0-53.0) % MCHC (31.0-37.0) g/dL RDW (11.5-15.5) % Neutrophils # (1.3-7.7) k/uL Lymphocytes # (1.0-4.8) k/uL ABG HCO3 (21-25) mmol/L ABG Total CO2 (19-24) mmol/L Hemoglobin (13.0-17.5) gm/dL BUN (9-20) mg/dL Creatinine (0.66-1.25) mg/dL Glucose (74-99) mg/dL POC Glucose (mg/dL) 202 H 131 H 125 H (70-110) mg/dL Calcium (8.4-10.2) mg/dL 06/23/24 06/23/24 06/23/24 Range/Units 03:55 05:00 05:00 WBC 19.6 H (3.8-10.6) k/uL RBC 3.17 L (4.30-5.90) m/uL Hgb 9.2 L (13.0-17.5) gm/dL Hct 30.1 L (39.0-53.0) % MCHC 30.5 L (31.0-37.0) g/dL RDW 16.4 H (11.5-15.5) % Neutrophils # 18.1 H (1.3-7.7) k/uL Lymphocytes # 0.4 L (1.0-4.8) k/uL ABG HCO3 29 H (21-25) mmol/L ABG Total CO2 30 H (19-24) mmol/L Hemoglobin 9.2 L (13.0-17.5) gm/dL BUN 82 H (9-20) mg/dL Creatinine 1.58 H (0.66-1.25) mg/dL Glucose 137 H (74-99) mg/dL POC Glucose (mg/dL) (70-110) mg/dL Calcium 8.3 L (8.4-10.2) mg/dL 06/23/24 Range/Units 05:14 WBC (3.8-10.6) k/uL RBC (4.30-5.90) m/uL Hgb (13.0-17.5) gm/dL Hct (39.0-53.0) % MCHC (31.0-37.0) g/dL RDW (11.5-15.5) % Neutrophils # (1.3-7.7) k/uL Lymphocytes # (1.0-4.8) k/uL ABG HCO3 (21-25) mmol/L ABG Total CO2 (19-24) mmol/L Hemoglobin (13.0-17.5) gm/dL BUN (9-20) mg/dL Creatinine (0.66-1.25) mg/dL Glucose (74-99) mg/dL POC Glucose (mg/dL) 141 H (70-110) mg/dL Calcium (8.4-10.2) mg/dL
--- NOTE | 2024-06-23 11:09 | XR ---
EXAMINATION TYPE: XR chest 1V portable DATE OF EXAM: 06/23/2024 11:02 AM COMPARISON: Multiple radiographs, with the most recent on 07-16. TECHNIQUE: XR chest 1V portable Portable AP radiograph of the chest. CLINICAL INDICATION:Male, 69 years old with history of Pneumothorax; FINDINGS: Lungs/Pleura: Trace bilateral pleural effusions. No sizable pneumothorax. Bibasilar airspace opacitie s. Diffuse interstitial prominence. Heart/mediastinum: Cardiomediastinal silhouette is stable size. Atherosclerotic calcifications are s een in the aorta. Musculoskeletal: No acute osseous pathology. Other findings: Similar bilateral chest wall subcutaneous emphysema extending into the neck. Lines/Tubes: Endotracheal tube with distal tip 4.4 cm above the marie. Stable right PICC line terminating in the low SVC. Stable bilateral chest tubes. IMPRESSION: 1. Stable support lines and tubes. 2. No sizable pneumothorax. Trace pneumothorax is not excluded. 3. Similar subcutaneous emphysema. 4. Bibasilar patchy airspace opacities which may represent infiltrate versus atelectasis. 5. Trace bilateral pleural effusions. [facility], , 06/23/2024 11:07 AM
[2024-06-23 11:10] LABS: Glucose,Whole Blood 104 mg/dL (70-110)
--- NOTE | 2024-06-23 12:01 | P.PN ---
Subjective Progress Note Date: 06/23/24 Principal diagnosis: Acute hypoxic respiratory failure with sepsis secondary to streptococcal pneumonia 69-year-old male patient came into the emergency department for shortness of breath. According to the significant other, the patient was sick approximately a week ago and his condition has been progressively getting worse. The patient has been falling. He has been having difficulties in keeping himself up and moving around over the past 24 hours. Based on that, he came into the emergency department. His initial pulse ox was 60% and he was placed on a BiPAP and rapi dly following that, the patient was intubated and placed on the mechanical ventilator. Chest x-ray at time of admission showed extensive pneumonia with left upper lobe consolidation and air bronchograms and bibasilar pulmonary infiltrates. Patient tested positive for influenza A. Postintubation, the patient's blood gases showed a pH of 7.36 with a pCO2 of 43 and pO2 of 60. Nevertheless, by the time he arrived to the ICU, the patient was again hypoxic with a pulse ox of 78%. Necessary ventilator changes were done and currently the patient is in a rate of 26, tidal volume of 375, PEEP of 24 with an FiO2 of 100% and expiratory pause of 0.2 ms. The blood gas showed a pH of 7.16 with a pCO2 of 77 and pO2 of 66. Triple-lumen catheter was established in the left IJ. Arterial line was also established. The patient is currently on Tamiflu. He was also started on broad-spectrum antibiotics utilizing a combination of cefepime Zithromax and vancomycin. Started on systemic steroids. Hem odynamically stable. No hypotension. Cardiac rhythm is sinus. According to the significant other, he has history of paroxysmal atrial fibrillation and the patient has undergone ablation. Cardiac rhythm is sinus. He also has hypertension. He is a former smoker. Does not utilize any form of oxygen therapy or inhalers on outpatient basis. No history of bronchial asthma. No history of COPD. No history of any congestion or heart failure. The white cell count of 15.3 with hemoglobin 15.8 and a platelet count of 265. Normal coagulation profile. BUN is 63 with a creatinine 1.42 and a sodium levels at 140 with a potassium level of 4.5. Initial lactic acid level was at 3.8 and dropped down to 2.0. The patient is currently on normal saline at rate of 100 cc an hour. Furthermore, he is sedated with propofol and paralytics with Bumex. In the intensive care unit. 06/14/2024, the patient is being seen for a follow-up. Remains intubated on the mechanical ventilator. This morning, the patient is off paralytics and the patient remains on propofol running at 65 mcg/kg/min. Remains on mechanical ventilator assist-control mode rate of 34, tidal volume of 450, FiO2 of 70% with a PEEP of 18. Blood gas showed a pH of 7.28 with a pCO2 of 59 and pO2 of 89. The patient remains hypotensive and remains on norepinephrine. The patient will be taken off vasopressin. Norepinephrine is running at 0.15 mcg/kg/min. Chest x-ray still showing stable bilateral pulmonary consolidation more extensive in the right lower lobe and the left upper lobe. Remains atrial fibrillation. Remains on IV Rocephin. Continues to receive enteral feeding for nutritional support. Remains on IV heparin regarding his ongoing atrial fibrillation. The WBC count is at 18, still elevated with a hemoglobin 10.3 and a platelet count of 193. Sodium is at 141, potassium is 5.1, bicarb is 27, BUN is 124 and creatinine is at 2.76. Despite ongoing renal failure, the patient is producing urine output. The patient was given Lasix and he continues to receive Lasix 80 mg on a daily basis. Rest of the medications remain unchanged. Completing course of Tamiflu. Remains on IV Rocephin. Remains on a combination of metoprolol 25 mg twice daily and amiodarone 4 mg p.o. twice daily for rate control. 06/15/2024, the patient is being seen for a follow-up. Remains intubated on mechanical ventilator. Remains sedated on propofol. Off paralytics and slightly asynchronous mechanical ventilator. May need fentanyl. Will continue monitoring his progress. Remains intubated on mechanical ventilator assist- control mode at rate of 36, tidal volume of 450, FiO2 of 70% with a PEEP of 18. Blood gas showed pH of 7.28 with a pCO2 of 64 pO2 of 106. Peak airway pressure is 36. Remains on norepinephrine running at 0.2 mcg/kg/min. Remains on vital HP at rate of 35 cc an hour. Follow-up chest x-ray done today shows improvement in the left upper lobe and right lower lobe pulmonary infiltrates. White cell count is at 19 with a hemoglobin 9.6 and a platelet count of 217. Sodium is at 146, potassium is at 5.7, chloride is 108, BUN is 140 with a creatinine of 2.5. Blood sugar is 200. Calcium level is at 7.4. Did have a episode of fever with a Tmax of 101.3. Remains on Lasix 80 mg IV every 24 hours. Fluid balance is +1.1 L over the past 24 hours and the patient has produced more than 2 L of urine output for yesterday. On 06/16/2024, patient is being seen for a follow-up. The patient remains on mechanical ventilator, sedated with propofol 65 mcg/kg/min and fentanyl at 1 mcg/kg/h. Chest x-ray findings are essentially stable and shows ongoing improvement in bilateral pulmonary infiltrates. Nevertheless, the patient remains intubated on mechanical ventilator. On today's evaluation, he is on assist-control at rate of 34, tidal volume of 450, FiO2 of 50% with a PEEP of 16. Blood gas showed a pH of 7.34 with pCO2 of 64 and pO2 of 79. The patient hemodynamically remains in atrial fibrillation, controlled rate. Vasopressin has been discontinued and norepinephrine has been weaned down to 0.07 mcg/kg/min. Remains on IV Lasix 80 mg every 12 hours. Fluid balance is -1.8 L over the past 24 hours. Remains on IV heparin. Remains on Lantus insulin 25 units daily and vital high-protein at rate of 35 cc an hour. Blood work from today shows a white cell count of 18, hemoglobin 9.1 and platelet count of 206. Sodium is at 151, K is at 5.8, BUN is at 143 with a creatinine of 2.3. Blood sugars at 195. Magnesium level is at 3.8. Calcium level is at 7.3. Patient was seen today on 06/17/2024, remains in the ICU, intubated and mechanically ventilated. Patient is still requiring ventilatory support still requiring hemodynamic support/norepinephrine and he remains quite ill, not ready for any trials of extubation. Patient is on assist-control rate of 34 tidal volume 450 FiO2 50% and PEEP of 16 ABG showed a pO2 of 99 pCO2 64 pH of 7.36. Patient is requiring norepinephrine at 0.03 mcg/kg/min propofol 65 mcg/kg/min Fentanyl 1 mcg/kg/h. Patient is receiving vital HP 35/35. Antibiotics lara he remains on Rocephin patient still on diuretics, seen by nephrology today, and he was placed on Lokelma and insulin was added for hyperkalemia. Patient was initially intubated on 06/10 and today is his seventh day of ventilatory support. Based on physical examination and based on his chest x-ray findings, he remains quite ill and he is not ready for any trials of weaning. Chest x-ray remains quite abnormal and on physical examination he has crackles rhonchi and wheezes noted bilaterally. Patient continues to have leukocytosis with WBC count of 17 hemoglobin is 8.3 D-dimer is 2.25. Sodium is 153 potassium 5.7 patient is on Lokelma, nephrology increased his free water via orogastric tube. Renal profile is abnormal with a BUN of 143 creatinine 2.03 liver enzymes are basically unremarkable LDH however is 320. Chest x-ray showed persistent bilateral multifocal infiltrates and/or atelectasis. But I believe this is mostly infiltrates. Patient was evaluated today on 06/18/2024, remains in the ICU remains intubated and mechanically ventilated still requiring norepinephrine at 0.07 micrograms per kilo per minute for low blood pressure patient remains on assist-control rate of 34 tidal volume 450 FiO2 50% PEEP is 16 and I cut it down to 14 today. ABG showed a pO2 of 100 pCO2 64 pH of 7.38 hence no other changes were made in ventilator settings. Drips lara patient remains on fentanyl at 1 mcg/kg/h propofol 65 mg/kg/min heparin drip, norepinephrine at 0.07 D5W at 75 cc/h Rocephin was renewed today he remains on Lasix 80 mg IV push every 12 hours. Patient is basically about the same, not much has changed between yesterday and today. Chest x-ray continues to show evidence of bilateral multifocal infiltrates and/or atelectasis. No significant change noted in chest x-ray compared to yesterday. Continues to have leukocytosis with WBC of 17.5 hemoglobin is 8.2 sodium is a bit better with sodium of 150 potassium 6.1 being addressed by nephrology BUN is 131 creatinine 1.61 bicarb is 39. Blood sugar is 181. Patient is in sinus rhythm, he is on amiodarone at 400 mg p.o. twice daily, remains on Rocephin remains on Lasix 80 twice daily, on insulin, and on updrafts as well as lactulose. Clearly considering the patient continues to have significantly abnormal chest x-ray and still requiring high PEEP, not ready for any weaning at this point. Patient was seen today on 06/19/2024, remains in the ICU, intubated and mechanically ventilated. Patient could not have mental status assessment yesterday as he seems to get extremely agitated, restless, and hypertensive tachypneic and tachycardic once he is off sedation for mental status assessment. Patient remains on assist-control rate of 34, tidal volume 450 FiO2 50% and PEEP was 14 and I cut it down to 12 today. His ABG showed a pO2 of 95 pCO2 59 pH of 7.44. Remains on fentanyl at 0.5 mcg/kg/h heparin drip, propofol at 55 mcg/kg/min IV fluid 0.9 normal saline at 10 cc/h he is also on Nepro 20/2 0/enteral feeding. Patient has been on Rocephin all along, chest x-ray continues to show multifocal infiltrates, hence I have ordered repeat sputum culture on this patient, may have to consider even bronchoscopy and BAL. In the meantime I believe it is best to continue the same course of treatment and continue supportive care measures as well as mechanical ventilation. Obviously the patient is not anywhere near weaning hence I am recommending surgical evaluation for possible trach and PEG later this week. Yesterday I had a chance to discuss his condition with his family at bedside. WBC count remains high 14.4 hemoglobin is 8 ABG as noted earlier. Electrolytes are better sodium down to 144 potassium 5 BUN remains high at 113 creatinine 1.45 Patient was seen today on 06/20/2024, patient remains on the ICU, intubated and mechanically ventilated, patient is supposed to have tracheostomy and PEG tube placement today. In the meantime the patient remains on assist-control rate of 34 tidal volume 450 FiO2 50% and PEEP 12 and I cut it down to 10. ABG showed a pO2 of 97 pCO2 54 pH of 7.48. Patient is still requiring low-dose of norepinephrine at 0.04 mcg/kg/min his fentanyl is 0.5 mg/kg/h propofol 60 mcg/kg/min patient is receiving Nepro at 20/20. Chest x-ray continues show evidence of bilateral infiltrates. CBC continues to show leukocytosis with WBC count of 16.8 hemoglobin 8.3 PTT is 87 however his heparin now is on hold. Basic metabolic profile is normal bicarb is 38 BUN is 100 creatinine is 1.44. Repeat sputum cultures from yesterday showing mostly yeast and many PMNs, Patient was reevaluated today on 06/21/2024, patient underwent tracheostomy and PEG tube placement yesterday, today we are encountering issues with trach around the tracheostomy and seems to be positional, needed more pressure in the cough. Overall the patient is about the same, remains in the ICU, intubated and mechanically ventilated, unable to assess mental status as he is still sedated and on propofol. His norepinephrine today is on hold. His ventilator settings are assist-control rate 34 tidal volume 450 FiO2 50% and PEEP is now down from 10-6. ABG earlier showed a pO2 of 80 pCO2 44 pH of 7.49, I cut down his rate from 34-30 increases tidal volume to 500 Down FiO2 from 10-6. Adjusted his flow rates, now flow rate is 70 L/min. Patient will definitely need a PICC line today, and will address that accordingly. He remains on heparin which needs to be placed on hold before PICC line is placed. He is on propofol at 50 mcg/kg/min and norepinephrine is now on hold. Nephrology is still diuresing the patient with Lasix and Diamox. Antibiotics lara he is on Rocephin and fluco nazole. Treating mostly Streptococcus pneumonia and Natalie albicans in the sputum. Chest x-ray continues to show multiple multifocal opacities, small bilateral pleural effusions, slight improvement in chest x-ray noted compared to previous x-rays of the chest. Patient was seen today on 06/22/2024, patient remains in the ICU, intubated and mechanically ventilated, patient had a very eventful morning this morning, apparently his tracheostomy seems to be not functioning great, and I have attempted to change the tracheostomy over a tube changer, his old tracheostomy was losing lots of volume, and even with multiple positioning and even with inflating the cuff with more air, could not get the patient to have adequate tidal volume. Please refer to the event note done on this patient earlier. At any rate patient is now intubated mechanically ventilated, the old tracheostomy tube was removed, and now he has a size 7.5 endotracheal tube placed and passing the tracheostomy surgical site down close to the marie. He is on assist- control rate of 26 tidal volume 500 FiO2 50% and PEEP of 6 ABG showed a pO2 of 91 pCO2 43 pH of 7.46. Patient remains on propofol, and during the process reintubation in the process of placing chest tubes in this patient, patient had to be placed on Nimbex. However Nimbex will be discontinued and he will be maintained on propofol at 50 mcg/kg/min. His overall clinical status remains very poor, patient is not doing great, and we have not seen any significant improvement since the patient was admitted till now. Remains on Rocephin remains on Lasix 60 mg IV push twice daily remains on propofol, and at 1 point we had to give Nimbex today, patient is off norepinephrine which is presently on hold. Chest x-ray continues show bilateral opacities/multifocal pneumonia. Continues to have leukocytosis with WBC of 18.3 hemoglobin is 9.2 electrolytes are normal BUN is 86 creatinine 1.82 being followed closely by nephrology. Patient was seen today on 06/23/2024, patient remains in the ICU, intubated mechanically ventilated, still on assist-control mode of mechanical ventilation with a rate of 26 tidal volume 500 FiO2 50% and I cut it down to 45%, PEEP down from 6-5. ABG today showed a pO2 of 85 pCO2 45 pH of 7.42. Chest x-ray today showed no evidence of pneumothorax, however he does have mild subcutaneous emphysema improved compared to the subcutaneous emphysema noted yesterday. Patient remains on antibiotics including Rocephin is also on fluconazole. His chest tubes were reviewed, no evidence of any leak, hence we will go ahead and place a chest tube to waterseal today. And follow-up chest x-ray after 1 hour showed no evidence of any pneumothorax. Patient remains on Diamox is also on Lasix, renal function is improving. Patient continues to have good urine output with diuretics. He is on heparin he is also on propofol at 15 mcg/kg/min. Today he is not hypotensive he is not requiring pressors. However the patient has multiple issues, and today I had a chance to discuss his condition with his brother over the phone, and we talked about the concern about having to go back and place another tracheostomy tube, his brother did not make that decision yet whether to proceed with a tracheostomy or to discussed with family and obviously he is considering comfort care measures. Patient remains quite ill, and has multiple comorbidities. WBC count is 19.6 hemoglobin 9.2. Basic metabolic profile is normal BUN is 82 creatinine 1.58 Objective - Vital Signs Vital signs: Vital Signs Temp 98.6 F 06/23/24 08:00 Pulse 86 06/23/24 11:00 Resp 28 H 06/23/24 11:00 BP 136/80 06/23/24 10:30 Pulse Ox 96 06/23/24 11:00 FiO2 45 06/23/24 11:40 Intake & Output 06/22/24 06/23/24 06/23/24 18:59 06:59 18:59 Intake Total 2072.545 1922.693 783.889 Output Total 5 2350 1135 Balance 17.545 -427.307 -351.111 Weight 109.6 kg Intake: IV 293 156 215 .9 @ KVO 110 120 50 0.9 Nomal Saline Pressure 33 36 15 Bag Fluconazole in NaCl,Iso- 100 100 Osm 200 mg In Saline 1 100ml.bag @ 100 mls/hr IVPB DAILY JACQUES Rx#: [id number] cefTRIAXone 2 gm In 50 50 Sodium Chloride 0.9% 50 ml @ 100 mls/hr IVPB Q24HR JACQUES Rx#:[id number] Intake, IV Titration 144.545 146.693 28.889 Amount propofoL 1,000 mg In 144.545 146.693 28.889 Empty Bag 1 bag @ 15 MCG/ KG/MIN 8.981 mls/hr IV . Q11H9M JACQUES Rx#:[id number] Tube Feeding 385 420 140 Other 1250 1200 400 Output: Chest Tube Drainage 65 35 0 Left Anterior Chest 55 25 0 Right Anterior Chest 10 10 0 Urine 1990 2315 1135 Other: Voiding Method Indwelling Catheter Indwelling Catheter Indwelling Catheter ABP, PAP, CO, CI - Last Documented Arterial Blood Pressure 147/57 - Exam General: Revealed 69-year-old white male, remains intubated and mechanically ventilated, sedated, and I plan to give the patient a sedation holiday trial today off propofol if possible. Derm: No rashes Head: Atraumatic normocephalic, had his old tracheostomy removed, yesterday endotracheal tube is intact. Eyes: PERRLA, EOMI, nonicteric, periorbital swelling is noted, right side more so than the left eye. Patient has upward gaze deviation of his eyes. Which has been present all along. Mouth: Normal mucous membranes, tracheostomy noted. Seems to be positional otherwise there is leak around the cuff. Cardiovascular: Distant S1-S2, no S3 gallop, no murmur Lungs: Diminished breath sound bilaterally scattered rhonchi noted Abdominal: Obese soft nontender no rebound no guarding Ext: 2+ bipedal edema Neuro: Could not assess, patient is intubated and sedated, even and spite of holding sedation intermittently, we have not been able to fully assess mental status on this patient. Psych: Could not assess patient is intubated and sedated [ - Labs CBC & Chem 7: 06/23/24 05:00 06/23/24 05:00 Labs: Abnormal Lab Results - Last 24 Hours (Table) 06/22/24 06/22/24 06/23/24 Range/Units 17:30 23:17 03:55 WBC (3.8-10.6) k/uL RBC (4.30-5.90) m/uL Hgb (13.0-17.5) gm/dL Hct (39.0-53.0) % MCHC (31.0-37.0) g/dL RDW (11.5-15.5) % Neutrophils # (1.3-7.7) k/uL Lymphocytes # (1.0-4.8) k/uL ABG HCO3 29 H (21-25) mmol/L ABG Total CO2 30 H (19-24) mmol/L Hemoglobin 9.2 L (13.0-17.5) gm/dL BUN (9-20) mg/dL Creatinine (0.66-1.25) mg/dL Glucose (74-99) mg/dL POC Glucose (mg/dL) 131 H 125 H (70-110) mg/dL Calcium (8.4-10.2) mg/dL 06/23/24 06/23/24 06/23/24 Range/Units 05:00 05:00 05:14 WBC 19.6 H (3.8-10.6) k/uL RBC 3.17 L (4.30-5.90) m/uL Hgb 9.2 L (13.0-17.5) gm/dL Hct 30.1 L (39.0-53.0) % MCHC 30.5 L (31.0-37.0) g/dL RDW 16.4 H (11.5-15.5) % Neutrophils # 18.1 H (1.3-7.7) k/uL Lymphocytes # 0.4 L (1.0-4.8) k/uL ABG HCO3 (21-25) mmol/L ABG Total CO2 (19-24) mmol/L Hemoglobin (13.0-17.5) gm/dL BUN 82 H (9-20) mg/dL Creatinine 1.58 H (0.66-1.25) mg/dL Glucose 137 H (74-99) mg/dL POC Glucose (mg/dL) 141 H (70-110) mg/dL Calcium 8.3 L (8.4-10.2) mg/dL Assessment and Plan Assessment: Impression: Acute hypoxic respiratory failure secondary to bilateral pneumococcal pneumonia and septic shock. Remains intubated and mechanically ventilated Status post tracheostomy and PEG tube placement on 06/20/2024 Bilateral pneumococcal pneumonia, in the setting of acute influenza infection Septic shock, second pneumococcal pneumonia with bacteremia. Acute kidney injury,, likely acute tubular necrosis being followed by nephrology Acute leukocytosis, secondary to above Atrial fibrillation with rapid ventricular response, currently on amiodarone .. Remains on IV heparin. History of hypertension Hypernatremia secondary to free water deficit, resolved Significant yeast noted in the sputum, presently on fluconazole Status post removal of old tracheostomy because of air leak around the cuff and was not functioning properly. 06/22/2024 Status post reintubation after the tracheostomy was removed on 06/22/2024 Bilateral pneumothorax and pneumomediastinum with subcutaneous emphysema secondary to barotrauma requiring bilateral chest tube placement on 06/22/2024. However today there is no evidence of pneumothorax, and there is no air leak, chest tubes were placed to waterseal. Recommendation: Place chest tubes to waterseal and follow-up chest x-ray was done there is no evidence of pneumothorax, patient has mostly subcu emphysema. Continue ventilatory support, however we will hold propofol and give the patient assessment of mental status. Continue nutritional status/enteral feeding via PEG tube later today Continue fluconazole Continue hemodynamic support if needed/norepinephrine, presently not requiring norepinephrine Continue diuretics Continue systemic steroids/Solu-Medrol Continue Rocephin and fluconazole Continue GI and DVT prophylaxis Continue insulin Continue oral amiodarone and heparin Sedation interruption holidays/trials, today Remains critically ill, and prognosis is extremely poor and guarded, discussed his condition with his brother over the phone, and his brother is discussing the condition with the rest of the family members and will likely decide to go with tracheostomy again rather than comfort care. Patient remains critically ill Critical care time is 32 minutes Time with Patient: Greater than 30
--- NOTE | 2024-06-23 15:11 | P.PN ---
Subjective Progress Note Date: 06/23/24 CHIEF COMPLAINT: Hypoxic respiratory failure HISTORY OF PRESENT ILLNESS: The patient is a 69-year-old male in the intensive care unit on a ventilator. Patient has complicated history of tracheostomy co mplication with leak. Patient had a bronchoscopy back reintubation and subsequent bilateral chest tube placements. Patient is on the ventilator. Not on pressors at this time. Revision of tracheostomy was not performed due to multiple events yesterday. ROS: No fevers or chills. No emesis. No vomiting. PHYSICAL EXAM: VITAL SIGNS: Reviewed CONSTITUTIONAL: Well developed and in no acute distress. EYES: Conjuctivae without sclera icterus. Extraocular movements grossly intact. HEAD, EARS, NOSE, THROAT: Endotracheal tube present. Has large swelling over left forehead. RESPIRATORY: Mechanical ventilation with endotracheal tube. Bilateral chest tubes without air leaks CARDIOVASCULAR: Palpable 2+ radial pulses. ABDOMEN: No peritonitis. MUSCULOSKELETAL: No gross deformity of the lower extremities noted. No clubbing. No cyanosis. SKIN: Good skin turgor. Well perfused. NEUROLOGIC: No focal or lateralizing signs. PSYCH: Sedated. CLINICAL LABS: Reviewed. WBC over 18,000 now elevated over 19,000. ASSESSMENT: 1. Streptococcal pneumonia with acute hypoxic respiratory failure 2. Tracheostomy malfunction 3. Barotrauma with pneumothorax PLAN: 1. Patient's family considering comfort measures versus additional surgery. At this time, revision of tracheostomy is on hold. 2. Global prognosis is grim. Objective - Vital Signs Vital signs: Vital Signs Temp 98.8 F 06/23/24 12:00 Pulse 85 06/23/24 14:00 Resp 28 H 06/23/24 14:00 BP 129/68 06/23/24 13:30 Pulse Ox 97 06/23/24 14:00 FiO2 45 06/23/24 12:00 Intake & Output 06/22/24 06/23/24 06/23/24 18:59 06:59 18:59 Intake Total 2072.545 1922.693 843.246 Output Total 0288 6170 1585 Balance 17.545 -427.307 -741.754 Weight 109.6 kg Intake: IV 293 156 254 .9 @ KVO 110 120 80 0.9 Nomal Saline Pressure 33 36 24 Bag Fluconazole in NaCl,Iso- 100 100 Osm 200 mg In Saline 1 100ml.bag @ 100 mls/hr IVPB DAILY JACQUES Rx#: [id number] cefTRIAXone 2 gm In 50 50 Sodium Chloride 0.9% 50 ml @ 100 mls/hr IVPB Q24HR JACQUES Rx#:[id number] Intake, IV Titration 144.545 146.693 49.246 Amount propofoL 1,000 mg In 144.545 146.693 49.246 Empty Bag 1 bag @ 15 MCG/ KG/MIN 8.981 mls/hr IV . Q11H9M JACQUES Rx#:[id number] Tube Feeding 385 420 140 Other 1250 1200 400 Output: Chest Tube Drainage 65 35 0 Left Anterior Chest 55 25 0 Right Anterior Chest 10 10 0 Urine 1990 2315 1585 Other: Voiding Method Indwelling Catheter Indwelling Catheter Indwelling Catheter ABP, PAP, CO, CI - Last Documented Arterial Blood Pressure 109/40 - Labs CBC & Chem 7: 06/23/24 05:00 06/23/24 05:00 Labs: Abnormal Lab Results - Last 24 Hours (Table) 06/22/24 06/22/24 06/23/24 Range/Units 17:30 23:17 03:55 WBC (3.8-10.6) k/uL RBC (4.30-5.90) m/uL Hgb (13.0-17.5) gm/dL Hct (39.0-53.0) % MCHC (31.0-37.0) g/dL RDW (11.5-15.5) % Neutrophils # (1.3-7.7) k/uL Lymphocytes # (1.0-4.8) k/uL ABG HCO3 29 H (21-25) mmol/L ABG Total CO2 30 H (19-24) mmol/L Hemoglobin 9.2 L (13.0-17.5) gm/dL BUN (9-20) mg/dL Creatinine (0.66-1.25) mg/dL Glucose (74-99) mg/dL POC Glucose (mg/dL) 131 H 125 H (70-110) mg/dL Calcium (8.4-10.2) mg/dL Procalcitonin (0.02-0.50) ng/mL 06/23/24 06/23/24 06/23/24 Range/Units 05:00 05:00 05:00 WBC 19.6 H (3.8-10.6) k/uL RBC 3.17 L (4.30-5.90) m/uL Hgb 9.2 L (13.0-17.5) gm/dL Hct 30.1 L (39.0-53.0) % MCHC 30.5 L (31.0-37.0) g/dL RDW 16.4 H (11.5-15.5) % Neutrophils # 18.1 H (1.3-7.7) k/uL Lymphocytes # 0.4 L (1.0-4.8) k/uL ABG HCO3 (21-25) mmol/L ABG Total CO2 (19-24) mmol/L Hemoglobin (13.0-17.5) gm/dL BUN 82 H (9-20) mg/dL Creatinine 1.58 H (0.66-1.25) mg/dL Glucose 137 H (74-99) mg/dL POC Glucose (mg/dL) (70-110) mg/dL Calcium 8.3 L (8.4-10.2) mg/dL Procalcitonin 0.59 H (0.02-0.50) ng/mL 06/23/24 Range/Units 05:14 WBC (3.8-10.6) k/uL RBC (4.30-5.90) m/uL Hgb (13.0-17.5) gm/dL Hct (39.0-53.0) % MCHC (31.0-37.0) g/dL RDW (11.5-15.5) % Neutrophils # (1.3-7.7) k/uL Lymphocytes # (1.0-4.8) k/uL ABG HCO3 (21-25) mmol/L ABG Total CO2 (19-24) mmol/L Hemoglobin (13.0-17.5) gm/dL BUN (9-20) mg/dL Creatinine (0.66-1.25) mg/dL Glucose (74-99) mg/dL POC Glucose (mg/dL) 141 H (70-110) mg/dL Calcium (8.4-10.2) mg/dL Procalcitonin (0.02-0.50) ng/mL
[2024-06-23] MEDS ORDERED: VECURONIUM 10 MG VIAL IV ONE (16:16)
[2024-06-23] MEDS ORDERED: fentaNYL (PF) 50 MCG/ML 2 ML AMP ONE (16:16)
[2024-06-23] MEDS: IV FLUID CONTINUATION 1,000 ML IV ONE (16:19)
--- NOTE | 2024-06-23 17:16 | P.PN ---
Subjective The patient is a 69-year-old male who presented with symptoms of progressive dyspnea, diagnosed with pneumonia and influenza A, requiring mechanical ventilation. Cardiology consultation was requested because of atrial fibrillation. The patient is intubated and sedated. He has a history of atrial fibrillation, status post ablation in January 2024. He was in sinus mechanism on presentation and back in atrial fibrillation at this time with episode of rapid ventricle response. He is on vasopressors. He had an echocardiogram that showed a preserved systolic function, the study was technically difficult. The patient has been anticoagulated as an outpatient. Her chest x-ray shows severe infiltration bilaterally consistent with a pneumonia. Presentation he had evidence of acute renal injury and hypotension related to sepsis. He has been initiated on amiodarone and he is on vasopressin in addition to norepinephrine June 13: The patient remains intubated and sedated. He had episodes of paroxysmal atrial fibrillation. He is in sinus mechanism at this time. He continues to be on norepinephrine. His urine output is stable. His chest x-ray shows bilateral infiltrate consistent with his pneumonia. There is no evidence of ventricular ectopic activity.There is significant worsening of his renal function with a BUN up to 101 with a creatinine of 2.94. Tolerating tube feeding June 14: The patient remains intubated and sedated. He is in atrial fibrillation with controlled ventricular response. He is on the lower dose of norepinephrine. His urine output has been stable and he is tolerating tube feeding. He had no evidence of ventricular ectopic activity. He continues to have significant infiltrate on his chest x-ray. June 15: The patient remains intubated and sedated, he is on the lower PEEP. He jeff nues to be in atrial fibrillation with controlled ventricular response. His urinary output has improved. There is no evidence of ventricular ectopic activity. His chest x-ray continues to show evidence of infiltrate bilaterally. Continues to be on IV heparin. He has worsening of his renal functions. June 16: The patient remains intubated and sedated on PEEP of 16. His dose of Levophed has been decreased. He continues to be on IV diuretics with good urine output. He is in atrial fibrillation with controlled ventricular response but no evidence of ventricular ectopic activity. His chest x-ray continues to show bilateral infiltrate. 06/17 patient seen and examined. Patient remains intubated and sedated. Per nursing has been able to be weaned somewhat on the norepinephrine. Still requiring 50% FiO2 with PEEP of 16. He is getting free water flushes through his OG tube. Good urine output with approximately 100 mL per hour. Creatinine mildly improving to 1.9 and BUN relatively stable. He remains in A. fib with heart rates 80s to 100s. hemoglobin downtrending to 8.3. Per nursing some bruising around his left subclavian central line. 06/18 Patient seen and examined. Patient remains intubated and sedated. Currently undergoing spontaneous breathing trial. Remains in A. fib with heart rates in the 90s to 100s. Creatinine mildly improving to 1.6 however significantly elevated BUN 131. Potassium originally 6.1 however improved to 5.1. He is receiving free water flushes through his G-tube with mild improvement in sodium to 150. Hemoglobin relatively stable at 8.2. Remains on a heparin drip. 06/19 Patient seen and examined. Patient remains intubated and sedated with rates of 34 and PEEP of 12 with FiO2 50%. Remains in A-fib with heart rates in the 90s to 100s. Creatinine improved to 1.4 and sodium improved to 144. CVP readings in the 15 range. 06/20 Patient seen and examined. Patient remains intubated and sedated. PEEP 10 FiO2 50%. BUN improved to 100 and creatinine 1.4. Remains in Afib. He was placed on low-dose norepinephrine and his metoprolol has intermittently been held however heart rates predominantly better controlled more recent in the last 6 hours more in the 70s to 80s.. 06/21 Patient seen and examined. Patient remains on ventilator. He had tracheostomy and PEG tube placement yesterday. No significant bleeding around his tr acheostomy site. Weaning sedation and patient has therefore been more tachycardic in the 100-1 10 range. Creatinine mildly increased at 1.7. Has not been on any further vasopressors 06/22 Patient seen and examined. Patient had issues with his airway with his trach and despite changing out trach had difficulty maintaining airway. Therefore he had endotracheal tube placed. Remains in A-fib with heart rates in the 80s to 90s. He is still on amiodarone 400 mg twice a day. Off of any vasopressors. Remains on vent with FiO2 50% and a PEEP of 6 06/23 Patient seen and examined. Patient had tracheostomy revision today and endotracheal tube removed. Ventilating well. Heart rates in the 80s to 90s on the decreased dose of amiodarone. PHYSICAL EXAMINATION: vitals reviewed, intubated and sedated LUNGS: Clear to auscultation anteriorly HEART: Irregular rate and rhythm, S1, S2. No S3. Systolic ejection murmur ABDOMEN: Soft, positive bowel sounds, no organomegaly EXTREMETIES: +1 edema IMPRESSION: 1. Acute respiratory failure with bilateral pneumonia and influenza A requiring mechanical ventilation 2. Paroxysmal atrial fibrillation status post ablation in 2023 3. Acute renal injury related to the sepsis and hypotension,, good urine output 4. Leukocytosis 5. Anemia 6. Septic shock on vasoperssors PLAN: Continue taper of amiodarone. Heart rates somewhat better controlled. If heart rates worse may consider increasing beta-blockade. Transition to Eliquis when cleared by surgery. Further recommendations to follow. Objective - Vital Signs Vital signs: Vital Signs Temp 98.6 F 06/23/24 16:00 Pulse 92 06/23/24 16:00 Resp 27 H 06/23/24 16:00 BP 134/67 06/23/24 15:30 Pulse Ox 92 L 06/23/24 16:00 FiO2 45 06/23/24 16:00 Intake & Output 06/22/24 06/23/24 06/23/24 18:59 06:59 18:59 Intake Total 2072.545 1922.693 869.246 Output Total 2054 2350 1760 Balance 17.545 -427.307 -890.754 Weight 109.6 kg Intake: IV 293 156 280 .9 @ KVO 110 120 100 0.9 Nomal Saline Pressure 33 36 30 Bag Fluconazole in NaCl,Iso- 100 100 Osm 200 mg In Saline 1 100ml.bag @ 100 mls/hr IVPB DAILY [facility]QU[facility] Rx#: [id number] cefTRIAXone 2 gm In 50 50 Sodium Chloride 0.9% 50 ml @ 100 mls/hr IVPB Q24HR J[facility]QU[facility] Rx#:[id number] Intake, IV Titration 144.545 146.693 49.246 Amount propofoL 1,000 mg In 144.545 146.693 49.246 Empty Bag 1 bag @ 15 MCG/ KG/MIN 8.981 mls/hr IV . Q11H9M JACQUES Rx#:[id number] Tube Feeding 385 420 140 Other 1250 1200 400 Output: Chest Tube Drainage 65 35 0 Left Anterior Chest 55 25 0 Right Anterior Chest 10 10 0 Urine 1990 1133 8536 Other: Voiding Method Indwelling Catheter Indwelling Catheter Indwelling Catheter ABP, PAP, CO, CI - Last Documented Arterial Blood Pressure 112/42 - Labs CBC & Chem 7: 06/23/24 05:00 06/23/24 05:00 Labs: Abnormal Lab Results - Last 24 Hours (Table) 06/22/24 06/22/24 06/23/24 Range/Units 17:30 23:17 03:55 WBC (3.8-10.6) k/uL RBC (4.30-5.90) m/uL Hgb (13.0-17.5) gm/dL Hct (39.0-53.0) % MCHC (31.0-37.0) g/dL RDW (11.5-15.5) % Neutrophils # (1.3-7.7) k/uL Lymphocytes # (1.0-4.8) k/uL ABG HCO3 29 H (21-25) mmol/L ABG Total CO2 30 H (19-24) mmol/L Hemoglobin 9.2 L (13.0-17.5) gm/dL BUN (9-20) mg/dL Creatinine (0.66-1.25) mg/dL Glucose (74-99) mg/dL POC Glucose (mg/dL) 131 H 125 H (70-110) mg/dL Calcium (8.4-10.2) mg/dL Procalcitonin (0.02-0.50) ng/mL 06/23/24 06/23/24 06/23/24 Range/Units 05:00 05:00 05:00 WBC 19.6 H (3.8-10.6) k/uL RBC 3.17 L (4.30-5.90) m/uL Hgb 9.2 L (13.0-17.5) gm/dL Hct 30.1 L (39.0-53.0) % MCHC 30.5 L (31.0-37.0) g/dL RDW 16.4 H (11.5-15.5) % Neutrophils # 18.1 H (1.3-7.7) k/uL Lymphocytes # 0.4 L (1.0-4.8) k/uL ABG HCO3 (21-25) mmol/L ABG Total CO2 (19-24) mmol/L Hemoglobin (13.0-17.5) gm/dL BUN 82 H (9-20) mg/dL Creatinine 1.58 H (0.66-1.25) mg/dL Glucose 137 H (74-99) mg/dL POC Glucose (mg/dL) (70-110) mg/dL Calcium 8.3 L (8.4-10.2) mg/dL Procalcitonin 0.59 H (0.02-0.50) ng/mL 06/23/24 Range/Units 05:14 WBC (3.8-10.6) k/uL RBC (4.30-5.90) m/uL Hgb (13.0-17.5) gm/dL Hct (39.0-53.0) % MCHC (31.0-37.0) g/dL RDW (11.5-15.5) % Neutrophils # (1.3-7.7) k/uL Lymphocytes # (1.0-4.8) k/uL ABG HCO3 (21-25) mmol/L ABG Total CO2 (19-24) mmol/L Hemoglobin (13.0-17.5) gm/dL BUN (9-20) mg/dL Creatinine (0.66-1.25) mg/dL Glucose (74-99) mg/dL POC Glucose (mg/dL) 141 H (70-110) mg/dL Calcium (8.4-10.2) mg/dL Procalcitonin (0.02-0.50) ng/mL
[2024-06-23 18:12] LABS: Glucose,Whole Blood 132 mg/dL (70-110)
[2024-06-23 20:14] LABS: Glucose,Whole Blood 120 mg/dL (70-110)
[2024-06-23 22:59] LABS: Glucose,Whole Blood 121 mg/dL (70-110)
[2024-06-24 04:38] LABS: Anisocytosis Slight; Basophils % (A) 0 %; Eosinophils % (A) 0 %; HCT 28.7 % (39.0-53.0); HGB 8.7 gm/dL (13.0-17.5); Hypochromasia Slight; Lymphocytes # (A) 0.4 k/uL (1.0-4.8); Lymphocytes % (A) 3 %; MCH 28.7 pg (25.0-35.0); MCHC 30.3 g/dL (31.0-37.0); MCV 94.8 fL (80.0-100.0); Macrocytosis Slight; Mean Platelet Volume 12.5; Monocytes # (A) 0.6 k/uL (0-1.0); Monocytes % (A) 4 %; Neutrophils # (A) 13.2 k/uL (1.3-7.7); Neutrophils % (A) 92 %; Platelet Count 215 k/uL (150-450); RBC 3.03 m/uL (4.30-5.90); RDW 17.5 % (11.5-15.5); WBC 14.4 k/uL (3.8-10.6)
[2024-06-24 05:04] LABS: African American GFR (CKD) 56 (>60 ml/min/1.73 sqM); Anion Gap 6 mmol/L; Blood Urea Nitrogen 76 mg/dL (9-20); Carbon Dioxide 28 mmol/L (22-30); Chloride 106 mmol/L (98-107); Glucose 124 mg/dL (74-99); Non-African American GFR(CKD) 48 (>60 ml/min/1.73 sqM); Potassium 3.8 mmol/L (3.5-5.1); Sodium 140 mmol/L (137-145)
[2024-06-24 05:27] LABS: ABG Base Excess 3.4 mmol/L; ABG HCO3 27 mmol/L (21-25); ABG Oxygen Saturation 92.3 % (94-97); ABG PCO2 39 mmHg (35-45); ABG PH 7.46 (7.35-7.45); ABG PO2 64 mmHg (83-108); ABG TCO2 29 mmol/L (19-24)
[2024-06-24 05:28] LABS: Allen Test Performed? No
[2024-06-24 06:05] LABS: Glucose,Whole Blood 131 mg/dL (70-110)
[2024-06-24] MEDS: POTASSIUM BICARBONATE/CIT AC 20 MEQ TABLET.EFF NG-TUBE SCH (06:07)
--- NOTE | 2024-06-24 07:16 | XR ---
EXAMINATION TYPE: XR chest 1V portable DATE OF EXAM: 06/24/2024 5:24 AM COMPARISON: 06/23/2024 CLINICAL INDICATION: Male, 69 years old with history of mechanical ventilation, FINDINGS: Indwelling tubes and catheters are unchanged. Bilateral chest tubes with subcutaneous emphysema uncha nged. No sizable pneumothorax. Scattered infiltrates throughout both lung ward remain unchanged. Stable appearance of the cardio-mediastinal structures at this time. IMPRESSION: 1. Stable portable chest. Clinical correlation and follow up until resolution is recommended. [facility], , 06/24/2024 7:14 AM
--- NOTE | 2024-06-24 08:17 | OP ---
OPERATIVE REPORT DATE OF SERVICE : PROCEDURES PERFORMED: Placement of a left-sided chest tube, tube thoracostomy. PREOPERATIVE DIAGNOSIS: Left-sided pneumothorax, most likely secondary to barotrauma, the patient developed bilateral pneumothoraces. POSTOPERATIVE DIAGNOSIS: Left-sided pneumothorax. ANESTHESIA USED: The patient was already on Nimbex and he received propofol. DESCRIPTION OF PROCEDURE: The patient was placed in a supine position, the area of the left chest was prepared in a sterile fashion, drapes were applied. At the level of the 5th intercostal space and anterior axillary line, a small tiny incision was made about 1 cm incision made, and I was able to dissect the subcutaneous tissue and fascia until I was able to enter the pleural space with my Genesis forceps and index finger. The pleural space was entered, and there was a sudden gush of air out of the pleural space. Then, a size 28 argyle chest tube was inserted and pointed apically and posteriorly. The tube was inserted, and it was secured using 0.0 Ethibond sutures. Connected to Pleur-Evac and connected to suction. The procedure was well tolerated, there was complete resolution of the pneumothorax, and adequate placement of the tube in the left apex. Again, no complications. MMODL / IJN: [id number] /
--- NOTE | 2024-06-24 10:18 | P.PN ---
Subjective Patient is seen for follow-up for acute kidney injury. Renal function is improving. Patient remains on the vent. FiO2 at 45%. On IV Lasix 40 mg every 12 hours. Urine output 75 to 100 mL/h. Objective - Vital Signs Vital signs: Vital Signs Temp 99 F 06/24/24 04:00 Pulse 102 H 06/24/24 08:24 Resp 30 H 06/24/24 08:24 BP 152/64 06/24/24 07:00 Pulse Ox 95 06/24/24 07:00 FiO2 45 06/24/24 08:23 Intake & Output 06/23/24 06/24/24 06/24/24 18:59 06:59 18:59 Intake Total 2701.766 6821.199 48 Output Total 1935 1645 75 Balance -569.754 273.199 -27 Weight 106.9 kg Intake: IV 306 156 13 .9 @ KVO 120 120 10 0.9 Nomal Saline Pressure 36 36 3 Bag Fluconazole in NaCl,Iso- 100 Osm 200 mg In Saline 1 100ml.bag @ 100 mls/hr IVPB DAILY JACQUES Rx#: [id number] cefTRIAXone 2 gm In 50 Sodium Chloride 0.9% 50 ml @ 100 mls/hr IVPB Q24HR [facility]QUES Rx#:[id number] Intake, IV Titration 49.246 142.199 Amount propofoL 1,000 mg In 49.246 142.199 Empty Bag 1 bag @ 15 MCG/ KG/MIN 8.981 mls/hr IV . Q11H9M JACQUES Rx#:[id number] Tube Feeding 210 420 35 Other 800 1200 Output: Chest Tube Drainage 0 60 Left Anterior Chest 0 20 Right Anterior Chest 0 40 Urine 1935 1585 75 Other: Voiding Method Indwelling Catheter Indwelling Catheter ABP, PAP, CO, CI - Last Documented Arterial Blood Pressure 138/59 - Exam Patient is sedated and on the vent Examination of the heart S1 and S2 Examination the lungs bilateral breath sounds are heard Abdomen is soft obese Examination of lower extremity shows 1+ edema with improving scrotal edema. - Labs CBC & Chem 7: 06/24/24 04:17 06/24/24 04:17 Labs: Abnormal Lab Results - Last 24 Hours (Table) 06/23/24 06/23/24 06/23/24 Range/Units 05:00 18:10 20:13 WBC (3.8-10.6) k/uL RBC (4.30-5.90) m/uL Hgb (13.0-17.5) gm/dL Hct (39.0-53.0) % MCHC (31.0-37.0) g/dL RDW (11.5-15.5) % Neutrophils # (1.3-7.7) k/uL Lymphocytes # (1.0-4.8) k/uL ABG pH (7.35-7.45) ABG pO2 (83-108) mmHg ABG HCO3 (21-25) mmol/L ABG Total CO2 (19-24) mmol/L ABG O2 Saturation (94-97) % Hemoglobin (13.0-17.5) gm/dL BUN (9-20) mg/dL Creatinine (0.66-1.25) mg/dL Glucose (74-99) mg/dL POC Glucose (mg/dL) 132 H 120 H (70-110) mg/dL Calcium (8.4-10.2) mg/dL Procalcitonin 0.59 H (0.02-0.50) ng/mL 06/23/24 06/24/24 06/24/24 Range/Units 22:57 04:17 04:17 WBC 14.4 H (3.8-10.6) k/uL RBC 3.03 L (4.30-5.90) m/uL Hgb 8.7 L (13.0-17.5) gm/dL Hct 28.7 L (39.0-53.0) % MCHC 30.3 L (31.0-37.0) g/dL RDW 17.5 H (11.5-15.5) % Neutrophils # 13.2 H (1.3-7.7) k/uL Lymphocytes # 0.4 L (1.0-4.8) k/uL ABG pH (7.35-7.45) ABG pO2 (83-108) mmHg ABG HCO3 (21-25) mmol/L ABG Total CO2 (19-24) mmol/L ABG O2 Saturation (94-97) % Hemoglobin (13.0-17.5) gm/dL BUN 76 H (9-20) mg/dL Creatinine 1.46 H (0.66-1.25) mg/dL Glucose 124 H (74-99) mg/dL POC Glucose (mg/dL) 121 H (70-110) mg/dL Calcium 8.0 L (8.4-10.2) mg/dL Procalcitonin (0.02-0.50) ng/mL 06/24/24 06/24/24 Range/Units 05:00 06:04 WBC (3.8-10.6) k/uL RBC (4.30-5.90) m/uL Hgb (13.0-17.5) gm/dL Hct (39.0-53.0) % MCHC (31.0-37.0) g/dL RDW (11.5-15.5) % Neutrophils # (1.3-7.7) k/uL Lymphocytes # (1.0-4.8) k/uL ABG pH 7.46 H (7.35-7.45) ABG pO2 64 L (83-108) mmHg ABG HCO3 27 H (21-25) mmol/L ABG Total CO2 29 H (19-24) mmol/L ABG O2 Saturation 92.3 L (94-97) % Hemoglobin 9.3 L (13.0-17.5) gm/dL BUN (9-20) mg/dL Creatinine (0.66-1.25) mg/dL Glucose (74-99) mg/dL POC Glucose (mg/dL) 131 H (70-110) mg/dL Calcium (8.4-10.2) mg/dL Procalcitonin (0.02-0.50) ng/mL Assessment and Plan Assessment: 1. Acute kidney injury, oliguric ATN from severe hypotension and sepsis. UA shows 1+ protein moderate blood. Ultrasound is unremarkable. Previous creatinine 1.0 on 02/01/2024 2. Septic shock from pneumonia, viral and bacterial pneumonia as well. Sputum culture and blood cultures grew Streptococcus pneumonia 3. Influenza A 4. Severe respiratory acidosis from respiratory failure slowly improving 5. Chronic A-fib status post cardiac ablation 6. Hyperkalemia associated with acute kidney injury, improved 7. Hypernatremia associated with free water deficit, improved Plan: Continue with IV Lasix Continue with free water flushes with tube feedings Repeat labs in a.m.
--- NOTE | 2024-06-24 11:02 | P.PN ---
Subjective Progress Note Date: 06/24/24 Hospital Course: Patient is a 69-year-old male with past medical history of A-fib status post a blation, hypertension. History obtained from chart review. Per ER note, EMS was called by patient's family for shortness of breath, family reported that multiple family members were sick in the house. They noted his SpO2 to be in 60s on placed him on CPAP with no improvement and he continued to breathe rapidly, spiking fever Initially, patient was placed on BiPAP for hypoxia, remained tachypneic and in respiratory distress despite BiPAP. Patient spent 1-1/2-hour on BiPAP with no improvement in his respiratory status, therefore, decision was made to intubate on 06/10, and was sedated, paralyzed, and transferred to ICU. Started on treatment for acute hypoxic respiratory failure secondary to bilateral pneumonia, influenza A pneumonia with cefepime, vancomycin; tamiflu, and solumedrol. Repeat chest x-ray showed diffuse pulmonary infiltrates and blood gases showed severe acidosis with pH of 7.05, patient was started on bicarb drip overnight, his blood pressure dropped requiring pressors. Hospital course complicated by oliguric renal failure. Nephrology consulted, kidney ultrasound and UA ordered, showed no obstruction or hydronephrosis. Nephrology also was following for hyperkalemia and hyponatremia, patient was started on Lokelma, continued on IV Lasix, recommended water flushes with tube feeds 400 cc every 4 hours. Blood cultures growing strep pneumo, antibiotics de-escalated to ceftriaxone 2 g daily. Cardiology consulted for A-fib with RVR, patient started on amiodarone drip, then switched to oral amiodarone starting as well as heparin gtt. Also hospital course was complicated by acute anemia, LDH 320, haptoglobin elevated, hematuria on UA.D-dimer elevated, but Fibrinogen normal, PTT elevated, PT/INR normal. 06/21 levo stopped. 06/22: Patient was noted to have leak, around his tracheostomy site, [facility] attempted to replace it and encountered a lot of difficulties, balance, tracheostomy was removed. Patient was then intubated, postintubation x-ray showed bilateral pneumothorax and pneumomediastinum, he had bilateral chest tubes placed with resolution of bilateral pneumothorax. Patient will need another tracheostomy if family desires 06/24, patient had another tracheostomy tube placed in 06/23, leukocytosis trending down, afebrile. Chest tube in place Subjective: Intubated and sedated Vitals Signs Reviewed. General: [Intubated, sedated, obese Derm: [warm], [dry], subcutaneous emphysema Head: [atraumatic], [normocephalic], [symmetric], trach tube in place Eyes: [EOMI], [no lid lag], [anicteric sclera] Mouth: [no lip lesion], [mucus membranes moist] Cardiovascular: [S1S2 reg], [no murmur] Lungs bilateral air entry appreciated, bilateral chest tubes in place Abdominal: [soft], [ nontender to palpation], [no guarding], [no appreciable o rganomegaly], PEG tube in place Ext: [no gross muscle atrophy], [2+ bilateral lower extremity edema], [no contractures] Neuro: Intubated, sedated Psych: Sedated, sedated Data Reviewed Today: Pertinent Labs: WBC 14.4, hemoglobin 8.7, platelet count normal, pH 7.46 on ABG, pCO2 39, pO2 64, sodium, potassium WNL, creatinine improving 1.26, bicarb 28, blood glucose is controlled. Assessment and Plan: Septic shock secondary with Acute Hypoxemic Respiratory Failure Community-acquired strep pneumo pneumonia, influenza A infection Strep pneumo bacteremia Natalie in sputum cultures S/p tracheostomy and PEG on 06/20/2024, tracheostomy removed on 06/22/24 secondary to leak S/p 2nd tracheostomy 06/23/24 Bilateral pneumothorax, pneumomediastinum s/p bilateral chest tube 06/22/24 -Vent settings per ICU: FiO2 45%, PEEP of 5 -Continue ceftriaxone 2 g daily, antibiotics SOT 06/10, repeat cultures sputum showing Natalie, started on fluconazole on 06/20 -Remains on solumedrol 40 every 12 hours -Continue DuoNebs q4 hours -Status post PEG tube placement 06/20 tube feeding to be started 24 hours after procedure, s/p tracheostomy placement and removal due to leak, possible replacement of tracheostomy ADLs -Levo on hold Steroid induced hyperglycemia Prediabetes -SSI, Accu-Cheks every 6 hours, - Levemir 25 units twice daily - Lispro 5 units q6h JACQUES -qualifies for metformin on discharge if kidney function recovers enough, otherwise defer to outpatient follow up Acute Anemia, stable -retic count is 1.1 (hypoproliferative) -FOBT ordered -LDH 320, haptoglobin high -repeat UA shows moderate blood, 59 RBC, occasional uric acid crystals -D-dimer elevated, but Fibrinogen normal, PTT elevated, PT/INR normal -consider discontinuing heparin gtt if continued drop in hgb Acute Kidney Injury secondary to ATN, initially oliguric Hyperkalemia resolved Hypernatremia secondary to free water deficit Metabolic Alkalosis -Nephrology following -Goal potassium tube feeding -Lasix 40 IV twice , nephrology stopped Diamox 250 IV twice daily -Na normal, [facility]WF - 400cc q4h Persistent A-fib status post ablation : -Continue heparin drip, -Amiodarone p.o. 200 twice daily, Lopressor 25 twice daily. -Cardiology following History of hypertension: GERD: Left forehead lipoma Obesity, Class III -Home medications reviewed and reconciled GI PPx: Stress ulcer prophylaxis with IV Protonix CODE STATUS: default full code DVT prophylaxis: Heparin drip Anticipated discharge date: Anticipated discharge place: [facility] Objective - Vital Signs Vital signs: Vital Signs Temp 99 F 06/24/24 04:00 Pulse 101 H 06/24/24 08:34 Resp 30 H 06/24/24 08:34 BP 152/64 06/24/24 07:00 Pulse Ox 95 06/24/24 07:00 FiO2 45 06/24/24 08:23 Intake & Output 06/23/24 06/24/24 06/24/24 18:59 06:59 18:59 Intake Total 5446.460 1593.199 48 Output Total 1935 1645 75 Balance -569.754 273.199 -27 Weight 106.9 kg Intake: IV 306 156 13 .9 @ KVO 120 120 10 0.9 Nomal Saline Pressure 36 36 3 Bag Fluconazole in NaCl,Iso- 100 Osm 200 mg In Saline 1 100ml.bag @ 100 mls/hr IVPB DAILY JACQU[facility] Rx#: [id number] cefTRIAXone 2 gm In 50 Sodium Chloride 0.9% 50 ml @ 100 mls/hr IVPB Q24HR [facility]ACQU[facility] Rx#:[id number] Intake, IV Titration 49.246 142.199 Amount propofoL 1,000 mg In 49.246 142.199 Empty Bag 1 bag @ 15 MCG/ KG/MIN 8.981 mls/hr IV . Q11H9M [facility] Rx#:[id number] Tube Feeding 210 420 35 Other 800 1200 Output: Chest Tube Drainage 0 60 Left Anterior Chest 0 20 Right Anterior Chest 0 40 Urine 1935 1585 75 Other: Voiding Method Indwelling Catheter Indwelling Catheter ABP, PAP, CO, CI - Last Documented Arterial Blood Pressure 138/59 - Labs CBC & Chem 7: 06/24/24 04:17 06/24/24 04:17 Labs: Abnormal Lab Results - Last 24 Hours (Table) 06/23/24 06/23/24 06/23/24 Range/Units 05:00 18:10 20:13 WBC (3.8-10.6) k/uL RBC (4.30-5.90) m/uL Hgb (13.0-17.5) gm/dL Hct (39.0-53.0) % MCHC (31.0-37.0) g/dL RDW (11.5-15.5) % Neutrophils # (1.3-7.7) k/uL Lymphocytes # (1.0-4.8) k/uL ABG pH (7.35-7.45) ABG pO2 (83-108) mmHg ABG HCO3 (21-25) mmol/L ABG Total CO2 (19-24) mmol/L ABG O2 Saturation (94-97) % Hemoglobin (13.0-17.5) gm/dL BUN (9-20) mg/dL Creatinine (0.66-1.25) mg/dL Glucose (74-99) mg/dL POC Glucose (mg/dL) 132 H 120 H (70-110) mg/dL Calcium (8.4-10.2) mg/dL Procalcitonin 0.59 H (0.02-0.50) ng/mL 06/23/24 06/24/24 06/24/24 Range/Units 22:57 04:17 04:17 WBC 14.4 H (3.8-10.6) k/uL RBC 3.03 L (4.30-5.90) m/uL Hgb 8.7 L (13.0-17.5) gm/dL Hct 28.7 L (39.0-53.0) % MCHC 30.3 L (31.0-37.0) g/dL RDW 17.5 H (11.5-15.5) % Neutrophils # 13.2 H (1.3-7.7) k/uL Lymphocytes # 0.4 L (1.0-4.8) k/uL ABG pH (7.35-7.45) ABG pO2 (83-108) mmHg ABG HCO3 (21-25) mmol/L ABG Total CO2 (19-24) mmol/L ABG O2 Saturation (94-97) % Hemoglobin (13.0-17.5) gm/dL BUN 76 H (9-20) mg/dL Creatinine 1.46 H (0.66-1.25) mg/dL Glucose 124 H (74-99) mg/dL POC Glucose (mg/dL) 121 H (70-110) mg/dL Calcium 8.0 L (8.4-10.2) mg/dL Procalcitonin (0.02-0.50) ng/mL 06/24/24 06/24/24 Range/Units 05:00 06:04 WBC (3.8-10.6) k/uL RBC (4.30-5.90) m/uL Hgb (13.0-17.5) gm/dL Hct (39.0-53.0) % MCHC (31.0-37.0) g/dL RDW (11.5-15.5) % Neutrophils # (1.3-7.7) k/uL Lymphocytes # (1.0-4.8) k/uL ABG pH 7.46 H (7.35-7.45) ABG pO2 64 L (83-108) mmHg ABG HCO3 27 H (21-25) mmol/L ABG Total CO2 29 H (19-24) mmol/L ABG O2 Saturation 92.3 L (94-97) % Hemoglobin 9.3 L (13.0-17.5) gm/dL BUN (9-20) mg/dL Creatinine (0.66-1.25) mg/dL Glucose (74-99) mg/dL POC Glucose (mg/dL) 131 H (70-110) mg/dL Calcium (8.4-10.2) mg/dL Procalcitonin (0.02-0.50) ng/mL
[2024-06-24 12:17] LABS: Glucose,Whole Blood 123 mg/dL (70-110)
--- NOTE | 2024-06-24 12:21 | P.PN ---
Subjective Progress Note Date: 06/24/24 SURGICAL PROGRESS NOTE CHIEF COMPLAINT: Respiratory failure HISTORY OF PRESENT ILLNESS: Patient had revision of his tracheostomy yesterday with Dr. Huynh. Patient is also status post PEG tube placement on 06/20/2024. Patient tolerating tube feeds. Trach with drainage per nursing staff. Afebrile. WBC is down from 19.6-14.4. Patient with bilateral chest tubes placed with barotrauma with pneumothorax. PHYSICAL EXAM: VITAL SIGNS: Reviewed. GENERAL: Well-developed in no acute distress. HEENT: Tracheostomy site with drainage. No evidence of air leak ABDOMEN: Soft. Nondistended. PEG tube site clean dry and intact ASSESSMENT: 1. Acute hypoxic respiratory failure with pneumonia and influenza A 2. Severe protein calorie malnutrition PLAN: -Continue to monitor tracheostomy site -Continue PEG tube feedings per protein chemist Physician [employer] Supervisor note has been reviewed by physician. Signing provider agrees with the documented findings, assessment, and plan of care. Objective - Vital Signs Vital signs: Vital Signs Temp 99.1 F 06/24/24 08:00 Pulse 91 06/24/24 11:00 Resp 32 H 06/24/24 11:00 BP 152/69 06/24/24 11:00 Pulse Ox 98 06/24/24 11:00 FiO2 45 06/24/24 12:00 Intake & Output 06/23/24 06/24/24 06/24/24 18:59 06:59 18:59 Intake Total 2753.720 6374.199 723.533 Output Total 1935 1645 395 Balance -569.754 273.199 328.533 Weight 106.9 kg 106.9 kg Intake: IV 306 156 152 .9 @ KVO 120 120 40 0.9 Nomal Saline Pressure 36 36 12 Bag Fluconazole in NaCl,Iso- 100 100 Osm 200 mg In Saline 1 100ml.bag @ 100 mls/hr IVPB DAILY [facility] Rx#: [id number] cefTRIAXone 2 gm In 50 Sodium Chloride 0.9% 50 ml @ 100 mls/hr IVPB Q24HR [facility] Rx#:[id number] Intake, IV Titration 49.246 142.199 31.533 Amount propofoL 1,000 mg In 49.246 142.199 31.533 Empty Bag 1 bag @ 15 MCG/ KG/MIN 8.981 mls/hr IV . Q11H9M [facility] Rx#:[id number] Tube Feeding 210 420 140 Other 800 1200 400 Output: Chest Tube Drainage 0 60 Left Anterior Chest 0 20 Right Anterior Chest 0 40 Urine 1935 1585 395 Other: Voiding Method Indwelling Catheter Indwelling Catheter Indwelling Catheter ABP, PAP, CO, CI - Last Documented Arterial Blood Pressure 139/58 - Labs CBC & Chem 7: 06/24/24 04:17 06/24/24 04:17 Labs: Abnormal Lab Results - Last 24 Hours (Table) 06/23/24 06/23/24 06/23/24 Range/Units 05:00 18:10 20:13 WBC (3.8-10.6) k/uL RBC (4.30-5.90) m/uL Hgb (13.0-17.5) gm/dL Hct (39.0-53.0) % MCHC (31.0-37.0) g/dL RDW (11.5-15.5) % Neutrophils # (1.3-7.7) k/uL Lymphocytes # (1.0-4.8) k/uL ABG pH (7.35-7.45) ABG pO2 (83-108) mmHg ABG HCO3 (21-25) mmol/L ABG Total CO2 (19-24) mmol/L ABG O2 Saturation (94-97) % Hemoglobin (13.0-17.5) gm/dL BUN (9-20) mg/dL Creatinine (0.66-1.25) mg/dL Glucose (74-99) mg/dL POC Glucose (mg/dL) 132 H 120 H (70-110) mg/dL Calcium (8.4-10.2) mg/dL Procalcitonin 0.59 H (0.02-0.50) ng/mL 06/23/24 06/24/24 06/24/24 Range/Units 22:57 04:17 04:17 WBC 14.4 H (3.8-10.6) k/uL RBC 3.03 L (4.30-5.90) m/uL Hgb 8.7 L (13.0-17.5) gm/dL Hct 28.7 L (39.0-53.0) % MCHC 30.3 L (31.0-37.0) g/dL RDW 17.5 H (11.5-15.5) % Neutrophils # 13.2 H (1.3-7.7) k/uL Lymphocytes # 0.4 L (1.0-4.8) k/uL ABG pH (7.35-7.45) ABG pO2 (83-108) mmHg ABG HCO3 (21-25) mmol/L ABG Total CO2 (19-24) mmol/L ABG O2 Saturation (94-97) % Hemoglobin (13.0-17.5) gm/dL BUN 76 H (9-20) mg/dL Creatinine 1.46 H (0.66-1.25) mg/dL Glucose 124 H (74-99) mg/dL POC Glucose (mg/dL) 121 H (70-110) mg/dL Calcium 8.0 L (8.4-10.2) mg/dL Procalcitonin (0.02-0.50) ng/mL 06/24/24 06/24/24 Range/Units 05:00 06:04 WBC (3.8-10.6) k/uL RBC (4.30-5.90) m/uL Hgb (13.0-17.5) gm/dL Hct (39.0-53.0) % MCHC (31.0-37.0) g/dL RDW (11.5-15.5) % Neutrophils # (1.3-7.7) k/uL Lymphocytes # (1.0-4.8) k/uL ABG pH 7.46 H (7.35-7.45) ABG pO2 64 L (83-108) mmHg ABG HCO3 27 H (21-25) mmol/L ABG Total CO2 29 H (19-24) mmol/L ABG O2 Saturation 92.3 L (94-97) % Hemoglobin 9.3 L (13.0-17.5) gm/dL BUN (9-20) mg/dL Creatinine (0.66-1.25) mg/dL Glucose (74-99) mg/dL POC Glucose (mg/dL) 131 H (70-110) mg/dL Calcium (8.4-10.2) mg/dL Procalcitonin (0.02-0.50) ng/mL
--- NOTE | 2024-06-24 12:28 | P.OP ---
Date of Procedure: 06/23/24 Preoperative Diagnosis: Respiratory failure Postoperative Diagnosis: respiratory failure Procedure(s) Performed: revision tracheostomy Anesthesia: JAZMIN Surgeon: Terrance uHynh Estimated Blood Loss (ml): 5 Pathology: none sent Condition: stable Disposition: PACU Indications for Procedure: this a 69-year-old male who had a tracheostomy performed 72 hours ago. Patient had his tracheostomy dislodged. The tracheostomy was attempted be to be replaced by Dr. Tyson. The tracheostomy tract could not be cannulated. Dr. Tyson eventually intubated the patient. Patient will undergo revision of tracheostomy today. Description of Procedure: The patient was placed on the operative table in the supine position. His neck was prepped and repeat sterile fashion. The tracheostomy sutures were withdrawn. The tracheostomy wound was opened with a pair of wheat [place] retractors. The trachea was visualized. At this point a tracheal hook was placed in trachea and the trachea was retracted cephalad. The endotracheal tube was visualized. The endotracheal tube was brought back. And then a #9 flanged bovina tracheostomy tubes placed in the trachea. The tracheostomy is secured at the 14 cm position. The balloon was inflated. There was good tidal volume seen. The skin s was then resutured with 3-0 nylon suture. Patient tolerated procedure well. The tracheostomy tube was secured with a trach tie. The nursing staff instructed not to remove the tracheostomy t Ties for 4 days.
--- NOTE | 2024-06-24 13:11 | P.PN ---
Subjective Progress Note Date: 06/24/24 Acute hypoxic respiratory failure with sepsis secondary to streptococcal pneumonia 69-year-old male patient came into the emergency department for shortness of breath. According to the significant other, the patient was sick approximately a week ago and his condition has been progressively getting worse. The patient has been falling. He has been having difficulties in keeping himself up and moving around over the past 24 hours. Based on that, he came into the emergency department. His initial pulse ox was 60% and he was placed on a BiPAP and rapidly following that, the patient was intubated and placed on the mechanical ventilator. Chest x-ray at time of admission showed extensive pneumonia with left upper lobe consolidation and air bronchograms and bibasilar pulmonary infiltrates. Patient tested positive for influenza A. Postintubation, the patient's blood gases showed a pH of 7.36 with a pCO2 of 43 and pO2 of 60. Nevertheless, by the time he arrived to the ICU, the patient was again hypoxic with a pulse ox of 78%. Necessary ventilator changes were done and currently the patient is in a rate of 26, tidal volume of 375, PEEP of 24 with an FiO2 of 100% and expiratory pause of 0.2 ms. The blood gas showed a pH of 7.16 with a pCO2 of 77 and pO2 of 66. Triple-lumen catheter was established in the left IJ. Arterial line was also established. The patient is currently on Tamiflu. He was also started on broad-spectrum antibiotics utilizing a combination of cefepime Zithromax and vancomycin. Started on systemic steroids. Hemodynamically stable. No hypotension. Cardiac rhythm is sinus. According to the significant other, he has history of paroxysmal atrial fibrillation and the patient has undergone ablation. Cardiac rhythm is sinus. He also has hypertension. He is a former smoker. Does not utilize any form of oxygen therapy or inhalers on outpatient basis. No history of bronchial asthma. No history of COPD. No history of any congestion or heart failure. The white cell count of 15.3 with hemoglobin 15.8 and a platelet count of 265. Normal coagulation profile. BUN is 63 with a creatinine 1.42 and a sodium levels at 140 with a potassium level of 4.5. Initial lactic acid level was at 3.8 and dropped down to 2.0. The patient is currently on normal saline at rate of 100 cc an hour. Furthermore, he is sedated with propofol and paralytics with Bumex. In the intensive care unit. 06/14/2024, the patient is being seen for a follow-up. Remains intubated on the mechanical ventilator. This morning, the patient is off paralytics and the patient remains on propofol running at 65 mcg/kg/min. Remains on mechanical ventilator assist-control mode rate of 34, tidal volume of 450, FiO2 of 70% with a PEEP of 18. Blood gas showed a pH of 7.28 with a pCO2 of 59 and pO2 of 89. The patient remains hypotensive and remains on norepinephrine. The patient will be taken off vasopressin. Norepinephrine is running at 0.15 mcg/kg/min. Chest x-ray still showing stable bilateral pulmonary consolidation more extensive in the right lower lobe and the left upper lobe. Remains atrial fibrillation. Remains on IV Rocephin. Continues to receive enteral feeding for nutritional support. Remains on IV heparin regarding his ongoing atrial fibrillation. The WBC count is at 18, still elevated with a hemoglobin 10.3 and a platelet count of 193. Sodium is at 141, potassium is 5.1, bicarb is 27, BUN is 124 and creatinine is at 2.76. Despite ongoing renal failure, the patient is producing urine output. The patient was given Lasix and he continues to receive Lasix 80 mg on a daily basis. Rest of the medications remain unchanged. Completing course of Tamiflu. Remains on IV Rocephin. Remains on a combination of metoprolol 25 mg twice daily and amiodarone 4 mg p.o. twice daily for rate control. 06/15/2024, the patient is being seen for a follow-up. Remains intubated on mechanical ventilator. Remains sedated on propofol. Off paralytics and sli ghtly asynchronous mechanical ventilator. May need fentanyl. Will continue monitoring his progress. Remains intubated on mechanical ventilator assist- control mode at rate of 36, tidal volume of 450, FiO2 of 70% with a PEEP of 18. Blood gas showed pH of 7.28 with a pCO2 of 64 pO2 of 106. Peak airway pressure is 36. Remains on norepinephrine running at 0.2 mcg/kg/min. Remains on vital HP at rate of 35 cc an hour. Follow-up chest x-ray done today shows improvement in the left upper lobe and right lower lobe pulmonary infiltrates. White cell count is at 19 with a hemoglobin 9.6 and a platelet count of 217. Sodium is at 146, potassium is at 5.7, chloride is 108, BUN is 140 with a creatinine of 2.5. Blood sugar is 200. Calcium level is at 7.4. Did have a episode of fever with a Tmax of 101.3. Remains on Lasix 80 mg IV every 24 hours. Fluid balance is +1.1 L over the past 24 hours and the patient has produced more than 2 L of urine output for yesterday. On 06/16/2024, patient is being seen for a follow-up. The patient remains on mechanical ventilator, sedated with propofol 65 mcg/kg/min and fentanyl at 1 mcg/kg/h. Chest x-ray findings are essentially stable and shows ongoing improvement in bilateral pulmonary infiltrates. Nevertheless, the patient remains intubated on mechanical ventilator. On today's evaluation, he is on assist-control at rate of 34, tidal volume of 450, FiO2 of 50% with a PEEP of 16. Blood gas showed a pH of 7.34 with pCO2 of 64 and pO2 of 79. The patient hemodynamically remains in atrial fibrillation, controlled rate. Vasopressin has been discontinued and norepinephrine has been weaned down to 0.07 mcg/kg/min. Remains on IV Lasix 80 mg every 12 hours. Fluid balance is -1.8 L over the past 24 hours. Remains on IV heparin. Remains on Lantus insulin 25 units daily and vital high-protein at rate of 35 cc an hour. Blood work from today shows a white cell count of 18, hemoglobin 9.1 and platelet count of 206. Sodium is at 151, K is at 5.8, BUN is at 143 with a creatinine of 2.3. Blood sugars at 195. Magnesium level is at 3.8. Calcium level is at 7.3. Patient was seen today on 06/17/2024, remains in the ICU, intubated and mec hanically ventilated. Patient is still requiring ventilatory support still requiring hemodynamic support/norepinephrine and he remains quite ill, not ready for any trials of extubation. Patient is on assist-control rate of 34 tidal volume 450 FiO2 50% and PEEP of 16 ABG showed a pO2 of 99 pCO2 64 pH of 7.36. Patient is requiring norepinephrine at 0.03 mcg/kg/min propofol 65 mcg/kg/min Fentanyl 1 mcg/kg/h. Patient is receiving vital HP 35/35. Antibiotics lara he remains on Rocephin patient still on diuretics, seen by nephrology today, and he was placed on Lokelma and insulin was added for hyperkalemia. Patient was initially intubated on 06/10 and today is his seventh day of ventilatory support. Based on physical examination and based on his chest x-ray findings, he remains quite ill and he is not ready for any trials of weaning. Chest x-ray remains quite abnormal and on physical examination he has crackles rhonchi and wheezes noted bilaterally. Patient continues to have leukocytosis with WBC count of 17 hemoglobin is 8.3 D-dimer is 2.25. Sodium is 153 potassium 5.7 patient is on Lokelma, nephrology increased his free water via orogastric tube. Renal profile is abnormal with a BUN of 143 creatinine 2.03 liver enzymes are basically unremarkable LDH however is 320. Chest x-ray showed persistent bilateral multifocal infiltrates and/or atelectasis. But I believe this is mostly infiltrates. Patient was evaluated today on 06/18/2024, remains in the ICU remains intubated a nd mechanically ventilated still requiring norepinephrine at 0.07 micrograms per kilo per minute for low blood pressure patient remains on assist-control rate of 34 tidal volume 450 FiO2 50% PEEP is 16 and I cut it down to 14 today. ABG showed a pO2 of 100 pCO2 64 pH of 7.38 hence no other changes were made in ventilator settings. Drips lara patient remains on fentanyl at 1 mcg/kg/h propofol 65 mg/kg/min heparin drip, norepinephrine at 0.07 D5W at 75 cc/h Rocephin was renewed today he remains on Lasix 80 mg IV push every 12 hours. Patient is basically about the same, not much has changed between yesterday and today. Chest x-ray continues to show evidence of bilateral multifocal infiltrat es and/or atelectasis. No significant change noted in chest x-ray compared to yesterday. Continues to have leukocytosis with WBC of 17.5 hemoglobin is 8.2 sodium is a bit better with sodium of 150 potassium 6.1 being addressed by nephrology BUN is 131 creatinine 1.61 bicarb is 39. Blood sugar is 181. Patient is in sinus rhythm, he is on amiodarone at 400 mg p.o. twice daily, remains on Rocephin remains on Lasix 80 twice daily, on insulin, and on updrafts as well as lactulose. Clearly considering the patient continues to have significantly abnormal chest x-ray and still requiring high PEEP, not ready for any weaning at this point. Patient was seen today on 06/19/2024, remains in the ICU, intubated and mechanically ventilated. Patient could not have mental status assessment yesterday as he seems to get extremely agitated, restless, and hypertensive tachypneic and tachycardic once he is off sedation for mental status assessment. Patient remains on assist-control rate of 34, tidal volume 450 FiO2 50% and PEEP was 14 and I cut it down to 12 today. His ABG showed a pO2 of 95 pCO2 59 pH of 7.44. Remains on fentanyl at 0.5 mcg/kg/h heparin drip, propofol at 55 mcg/kg/min IV fluid 0.9 normal saline at 10 cc/h he is also on Nepro 20/20/enteral feeding. Patient has been on Rocephin all along, chest x-ray continues to show multifocal infiltrates, hence I have ordered repeat sputum culture on this patient, may have to consider even bronchoscopy and BAL. In the meantime I believe it is best to continue the same course of treatment and continue supportive care measures as well as mechanical ventilation. Obviously the patient is not anywhere near weaning hence I am recommending surgical evaluation for possible trach and PEG later this week. Yesterday I had a chance to discuss his condition with his family at bedside. WBC count remains high 14.4 hemoglobin is 8 ABG as noted earlier. Electrolytes are better sodium down to 144 potassium 5 BUN remains high at 113 creatinine 1.45 Patient was seen today on 06/20/2024, patient remains on the ICU, intubated and mechanically ventilated, patient is supposed to have tracheostomy and PEG tube placement today. In the meantime the patient remains on assist-control rate of 34 tidal volume 450 FiO2 50% and PEEP 12 and I cut it down to 10. ABG showed a pO2 of 97 pCO2 54 pH of 7.48. Patient is still requiring low-dose of no repinephrine at 0.04 mcg/kg/min his fentanyl is 0.5 mg/kg/h propofol 60 mcg/kg/min patient is receiving Nepro at 20/20. Chest x-ray continues show evidence of bilateral infiltrates. CBC continues to show leukocytosis with WBC count of 16.8 hemoglobin 8.3 PTT is 87 however his heparin now is on hold. Basic metabolic profile is normal bicarb is 38 BUN is 100 creatinine is 1.44. Repeat sputum cultures from yesterday showing mostly yeast and many PMNs, Patient was reevaluated today on 06/21/2024, patient underwent tracheostomy and PEG tube placement yesterday, today we are encountering issues with trach around the tracheostomy and seems to be positional, needed more pressure in the cough. Overall the patient is about the same, remains in the ICU, intubated and mechanically ventilated, unable to assess mental status as he is still sedated and on propofol. His norepinephrine today is on hold. His ventilator settings are assist-control rate 34 tidal volume 450 FiO2 50% and PEEP is now down from 10-6. ABG earlier showed a pO2 of 80 pCO2 44 pH of 7.49, I cut down his rate from 34-30 increases tidal volume to 500 Down FiO2 from 10-6. Adjusted his flow rates, now flow rate is 70 L/min. Patient will definitely need a PICC line today, and will address that accordingly. He remains on heparin which needs to be placed on hold before PICC line is placed. He is on propofol at 50 mcg/ kg/min and norepinephrine is now on hold. Nephrology is still diuresing the patient with Lasix and Diamox. Antibiotics lara he is on Rocephin and fluconazole. Treating mostly Streptococcus pneumonia and Natalie albicans in the sputum. Chest x-ray continues to show multiple multifocal opacities, small bilateral pleural effusions, slight improvement in chest x-ray noted compared to previous x-rays of the chest. Patient was seen today on 06/22/2024, patient remains in the ICU, intubated and mechanically ventilated, patient had a very eventful morning this morning, apparently his tracheostomy seems to be not functioning great, and I have attempted to change the tracheostomy over a tube changer, his old tracheostomy was losing lots of volume, and even with multiple positioning and even with inflating the cuff with more air, could not get the patient to have adequate tidal volume. Please refer to the event note done on this patient earlier. At any rate patient is now intubated mechanically ventilated, the old tracheostomy tube was removed, and now he has a size 7.5 endotracheal tube placed and passing the tracheostomy surgical site down close to the marie. He is on assist- control rate of 26 tidal volume 500 FiO2 50% and PEEP of 6 ABG showed a pO2 of 91 pCO2 43 pH of 7.46. Patient remains on propofol, and during the process reintubation in the process of placing chest tubes in this patient, patient had to be placed on Nimbex. However Nimbex will be discontinued and he will be maintained on propofol at 50 mcg/kg/min. His overall clinical status remains very poor, patient is not doing great, and we have not seen any significant improvement since the patient was admitted till now. Remains on Rocephin remains on Lasix 60 mg IV push twice daily remains on propofol, and at 1 point we had to give Nimbex today, patient is off norepinephrine which is presently on hold. Chest x-ray continues show bilateral opacities/multifocal pneumonia. Continues to have leukocytosis with WBC of 18.3 hemoglobin is 9.2 electrolytes are normal BUN is 86 creatinine 1.82 being followed closely by nephrology. Patient was seen today on 06/23/2024, patient remains in the ICU, intubated mec hanically ventilated, still on assist-control mode of mechanical ventilation with a rate of 26 tidal volume 500 FiO2 50% and I cut it down to 45%, PEEP down from 6-5. ABG today showed a pO2 of 85 pCO2 45 pH of 7.42. Chest x-ray today showed no evidence of pneumothorax, however he does have mild subcutaneous emphysema improved compared to the subcutaneous emphysema noted yesterday. Patient remains on antibiotics including Rocephin is also on fluconazole. His chest tubes were reviewed, no evidence of any leak, hence we will go ahead and place a chest tube to waterseal today. And follow-up chest x-ray after 1 hour showed no evidence of any pneumothorax. Patient remains on Diamox is also on Lasix, renal function is improving. Patient continues to have good urine output with diuretics. He is on heparin he is also on propofol at 15 mcg/kg/min. Today he is not hypotensive he is not requiring pressors. However the patient has multiple issues, and today I had a chance to discuss his condition with his brother over the phone, and we talked about the concern about having to go back and place another tracheostomy tube, his brother did not make that decision yet whether to proceed with a tracheostomy or to discussed with family and obviously he is considering comfort care measures. Patient remains quite ill, and has multiple comorbidities. WBC count is 19.6 hemoglobin 9.2. Basic metabolic profile is normal BUN is 82 creatinine 1.58 06/24/2024: Patient 69-year-old male that was admitted to the ICU on 06/10/2024 due to acute hypoxic respiratory failure with sepsis. His initial pulse ox was 60% and he was placed on a BiPAP and rapidly following that, the patient was intubated and placed on the mechanical ventilator on 06/10/2024. Chest x-ray at time of admission showed extensive pneumonia with left upper lobe consolidation and air bronchograms and bibasilar pulmonary infiltrates. Patient tested positive for influenza. Patient was seen today on 06/24/2024. He remains in the ICU, mechanically ventillated and sedated. Currently on assist control mode of mechanical ventill ation with rate of: 26, TV 500, FIO2 45% PEEP 5. ABG: pH 7.46, pCO2 39, pO2 64. Currently on propofol 10 mcg/kg/min. Remains on Rocephin 2g IVP every 24 hours that is due for renewal today. Remains Fluconazole 20 mg IVPB daily due to Natalie found in sputum culture. He is on IV Solu-Medrol 40 cc/hr. Vital HP tube feed at goal of 35. Chest tubes are showing evidence no air leaks. Patient no acute events overnight. Repeat chest x-ray independently interpreted displaying scattered infiltrates in both lung ward, unchanged from prior. Labs: WBC 14.4, Hgb 8.7, HCT 28.7, platelet 215. Sodium 140, potassium 3.8, BUN 76, creatinine 1.46. Objective - Vital Signs Vital signs: Vital Signs Temp 99 F 06/24/24 04:00 Pulse 98 06/24/24 07:00 Resp 29 H 06/24/24 07:00 BP 152/64 06/24/24 07:00 Pulse Ox 95 06/24/24 07:00 FiO2 45 06/24/24 05:10 Intake & Output 06/23/24 06/24/24 06/24/24 18:59 06:59 18:59 Intake Total 5159.718 4785.199 48 Output Total 1935 1645 75 Balance -569.754 273.199 -27 Weight 106.9 kg Intake: IV 306 156 13 .9 @ KVO 120 120 10 0.9 Nomal Saline Pressure 36 36 3 Bag Fluconazole in NaCl,Iso- 100 Osm 200 mg In Saline 1 100ml.bag @ 100 mls/hr IVPB DAILY JACQUES Rx#: [id number] cefTRIAXone 2 gm In 50 Sodium Chloride 0.9% 50 ml @ 100 mls/hr IVPB Q24HR JACQUES Rx#:[id number] Intake, IV Titration 49.246 142.199 Amount propofoL 1,000 mg In 49.246 142.199 Empty Bag 1 bag @ 15 MCG/ KG/MIN 8.981 mls/hr IV . Q11H9M JACQUES Rx#:[id number] Tube Feeding 210 420 35 Other 800 1200 Output: Chest Tube Drainage 0 60 Left Anterior Chest 0 20 Right Anterior Chest 0 40 Urine 1935 1585 75 Other: Voiding Method Indwelling Catheter Indwelling Catheter ABP, PAP, CO, CI - Last Documented Arterial Blood Pressure 138/59 - Labs CBC & Chem 7: 06/24/24 04:17 06/24/24 04:17 Labs: Abnormal Lab Results - Last 24 Hours (Table) 06/23/24 06/23/24 06/23/24 Range/Units 05:00 18:10 20:13 WBC (3.8-10.6) k/uL RBC (4.30-5.90) m/uL Hgb (13.0-17.5) gm/dL Hct (39.0-53.0) % MCHC (31.0-37.0) g/dL RDW (11.5-15.5) % Neutrophils # (1.3-7.7) k/uL Lymphocytes # (1.0-4.8) k/uL ABG pH (7.35-7.45) ABG pO2 (83-108) mmHg ABG HCO3 (21-25) mmol/L ABG Total CO2 (19-24) mmol/L ABG O2 Saturation (94-97) % Hemoglobin (13.0-17.5) gm/dL BUN (9-20) mg/dL Creatinine (0.66-1.25) mg/dL Glucose (74-99) mg/dL POC Glucose (mg/dL) 132 H 120 H (70-110) mg/dL Calcium (8.4-10.2) mg/dL Procalcitonin 0.59 H (0.02-0.50) ng/mL 06/23/24 06/24/24 06/24/24 Range/Units 22:57 04:17 04:17 WBC 14.4 H (3.8-10.6) k/uL RBC 3.03 L (4.30-5.90) m/uL Hgb 8.7 L (13.0-17.5) gm/dL Hct 28.7 L (39.0-53.0) % MCHC 30.3 L (31.0-37.0) g/dL RDW 17.5 H (11.5-15.5) % Neutrophils # 13.2 H (1.3-7.7) k/uL Lymphocytes # 0.4 L (1.0-4.8) k/uL ABG pH (7.35-7.45) ABG pO2 (83-108) mmHg ABG HCO3 (21-25) mmol/L ABG Total CO2 (19-24) mmol/L ABG O2 Saturation (94-97) % Hemoglobin (13.0-17.5) gm/dL BUN 76 H (9-20) mg/dL Creatinine 1.46 H (0.66-1.25) mg/dL Glucose 124 H (74-99) mg/dL POC Glucose (mg/dL) 121 H (70-110) mg/dL Calcium 8.0 L (8.4-10.2) mg/dL Procalcitonin (0.02-0.50) ng/mL 06/24/24 06/24/24 Range/Units 05:00 06:04 WBC (3.8-10.6) k/uL RBC (4.30-5.90) m/uL Hgb (13.0-17.5) gm/dL Hct (39.0-53.0) % MCHC (31.0-37.0) g/dL RDW (11.5-15.5) % Neutrophils # (1.3-7.7) k/uL Lymphocytes # (1.0-4.8) k/uL ABG pH 7.46 H (7.35-7.45) ABG pO2 64 L (83-108) mmHg ABG HCO3 27 H (21-25) mmol/L ABG Total CO2 29 H (19-24) mmol/L ABG O2 Saturation 92.3 L (94-97) % Hemoglobin 9.3 L (13.0-17.5) gm/dL BUN (9-20) mg/dL Creatinine (0.66-1.25) mg/dL Glucose (74-99) mg/dL POC Glucose (mg/dL) 131 H (70-110) mg/dL Calcium (8.4-10.2) mg/dL Procalcitonin (0.02-0.50) ng/mL Assessment and Plan Assessment: Acute hypoxic respiratory failure secondary to bilateral pneumococcal pneumonia and septic shock. Remains intubated and mechanically ventilated Status post tracheostomy and PEG tube placement on 06/20/2024 Bilateral pneumococcal pneumonia, in the setting of acute influenza infection Septic shock, second pneumococcal pneumonia with bacteremia. Acute kidney injury, likely acute tubular necrosis being followed by nephrology Acute leukocytosis, secondary to above Atrial fibrillation with rapid ventricular response, currently on amiodarone .. Remains on IV heparin. History of hypertension Hypernatremia secondary to free water deficit, resolved Significant yeast noted in the sputum, presently on fluconazole Status post removal of old tracheostomy because of air leak around the cuff and was not functioning properly. 06/22/2024 Status post reintubation after the tracheostomy was removed on 06/22/2024 Bilateral pneumothorax and pneumomediastinum with subcutaneous emphysema secondary to barotrauma requiring bilateral chest tube placement on 06/22/2024. However today there is no evidence of pneumothorax, and there is no air leak, chest tubes were placed to waterseal. Plan: Place chest tubes to waterseal and follow-up chest x-ray was done there is no evidence of pneumothorax, patient has mostly subcu emphysema. Continue ventilatory support Will attempt to wean off since sedation Continue nutritional status/enteral feeding Rocephin 2 g IVP every 24 discontinued Continue fluconazole Continue hemodynamic support if needed/norepinephrine, presently not requiring norepinephrine Continue diuretics Continue systemic steroids/Solu-Medrol Continue GI and DVT prophylaxis Continue insulin Continue oral amiodarone and heparin CT brain without contrast ordered Chest tubes showing no air leaks, plan to remove in the coming days Discussed his condition with his brother over the phone. Family has decided to go forward with tracheostomy and PEG tube placement followed by placement in long-term facility. States will consider comfort care afterwards. Patient remains critically ill, poor prognosis.
--- NOTE | 2024-06-24 13:50 | CDI ---
Documentation Clarification Form Date: 06/24/2024 01:47:28 PM From: Yu Bloom RN CCDS Phone: [phone] Admit Date: 06/10/2024 03:41:00 PM Patient Name: Blaze Douglas Visit Number: [id number] Discharge Date: ATTENTION: The Clinical Documentation Specialists (CDI) and [facility] Coding Staff appreciate your assistance in clarifying documentation. Please respond to the clarification below the line at the bottom and electronically sign. The CDI & [facility] Coding staff will review the response and follow-up if needed. Please note: Queries are made part of the Legal Health Record. If you have any questions, please contact the author of this message via ITS. Doctor: Haily Roberts Tracheostomy malfunction is documented 06/23, Surgical note and the patient a tracheostomy 06/20. Additional clarification is requested regarding the relationship, if any, that exists between the diagnosis and the procedure. History/Risk Factors: 69 year old male presents to the ED via EMS for shortness of breath, family reported that multiple family members were sick in the house. Medical History: HTN, GERD, Atrial Fibrillation post ablation and former smoker. 06/10, HP. Patients Admitting Diagnosis: Sepsis secondary to severe community acquired pneumonia and Influenza A infection. Post-Operative Diagnosis: Acute hypoxic respiratory failure with pneumonia and influenza A Procedure performed: Tracheostomy Clinical Indicators: 06/21 Surgical note: Patient is postop day# 1 status post tracheostomy and PEG tube placement. Patient does have a air leak at the tracheostomy site. Respiratory therapy has applied more fluid to the balloon. Still having difficulty with holding the volumes -Continue to monitor tracheostomy site.Trach needs to be advanced deeper per Dr. Huynh. Treatment: : Revision of tracheostomy 06/24/2024 What relationship, if any, exists between the diagnosis of Tracheostomy malfunction] and the procedure: [ x ] Tracheostomy malfunction is clinically significant due to comorbid conditions and not a complication [ ] Tracheostomy malfunction is clinically significant and a complication of the operative procedure [ ] Other please specify ____ [ ] Unable to determine MTDD
--- NOTE | 2024-06-24 15:04 | P.PN ---
Subjective Progress Note Date: 06/24/24 The patient is a 69-year-old male who presented with symptoms of progressive dyspnea, diagnosed with pneumonia and influenza A, requiring mechanical ventilation. Cardiology consultation was requested because of atrial fibrillation. The patient is intubated and sedated. He has a history of atrial fibrillation, status post ablation in January 2024. He was in sinus mechanism on presentation and back in atrial fibrillation at this time with episode of rapid ventricle response. He is on vasopressors. He had an echocardiogram that showed a preserved systolic function, the study was technically difficult. The patient has been anticoagulated as an outpatient. Her chest x-ray shows severe infiltration bilaterally consistent with a pneumonia. Presentation he had evidence of acute renal injury and hypotension related to sepsis. He has been initiated on amiodarone and he is on vasopressin in addition to norepinephrine June 13: The patient remains intubated and sedated. He had episodes of paroxysmal atrial fibrillation. He is in sinus mechanism at this time. He continues to be on norepinephrine. His urine output is stable. His chest x-ray shows bilateral infiltrate consistent with his pneumonia. There is no evidence of ventricular ectopic activity.There is significant worsening of his renal function with a BUN up to 101 with a creatinine of 2.94. Tolerating tube feeding June 14: The patient remains intubated and sedated. He is in atrial fibrillation with controlled ventricular response. He is on the lower dose of norepinephrine. His urine output has been stable and he is tolerating tube feeding. He had no evidence of ventricular ectopic activity. He continues to have significant infiltrate on his chest x-ray. June 15: The patient remains intubated and sedated, he is on the lower PEEP. He continues to be in atrial fibrillation with controlled ventricular response. His urinary output has improved. There is no evidence of ventricular ectopic activity. His chest x-ray continues to show evidence of infiltrate bilaterally. Continues to be on IV heparin. He has worsening of his renal functions. June 16: The patient remains intubated and sedated on PEEP of 16. His dose of Levophed has been decreased. He continues to be on IV diuretics with good urine output. He is in atrial fibrillation with controlled ventricular response but no eviden ce of ventricular ectopic activity. His chest x-ray continues to show bilateral infiltrate. 06/17 patient seen and examined. Patient remains intubated and sedated. Per nursing has been able to be weaned somewhat on the norepinephrine. Still requiring 50% FiO2 with PEEP of 16. He is getting free water flushes through his OG tube. Good urine output with approximately 100 mL per hour. Creatinine mildly improving to 1.9 and BUN relatively stable. He remains in A. fib with heart rates 80s to 100s. hemoglobin downtrending to 8.3. Per nursing some bruising around his left subclavian central line. 06/18 Patient seen and examined. Patient remains intubated and sedated. Currently undergoing spontaneous breathing trial. Remains in A. fib with heart rates in the 90s to 100s. Creatinine mildly improving to 1.6 however significantly elevated BUN 131. Potassium originally 6.1 however improved to 5.1. He is receiving free water flushes through his G-tube with mild improvement in sodium to 150. Hemoglobin relatively stable at 8.2. Remains on a heparin drip. 06/19 Patient seen and examined. Patient remains intubated and sedated with rates of 34 and PEEP of 12 with FiO2 50%. Remains in A-fib with heart rates in the 90s to 100s. Creatinine improved to 1.4 and sodium improved to 144. CVP readings in the 15 range. 06/20 Patient seen and examined. Patient remains intubated and sedated. PEEP 10 FiO2 50%. BUN improved to 100 and creatinine 1.4. Remains in Afib. He was placed on low-dose norepinephrine and his metoprolol has intermittently been held however heart rates predominantly better controlled more recent in the last 6 hours more in the 70s to 80s.. 06/21 Patient seen and examined. Patient remains on ventilator. He had tracheostomy and PEG tube placement yesterday. No significant bleeding around his tracheostomy site. Weaning sedation and patient has therefore been more tachycardic in the 100-1 10 range. Creatinine mildly increased at 1.7. Has not been on any further vasopressors 06/22 Patient seen and examined. Patient had issues with his airway with his trach and despite changing out trach had difficulty maintaining airway. Therefore he had endotracheal tube placed. Remains in A-fib with heart rates in the 80s to 90s. He is still on amiodarone 400 mg twice a day. Off of any vasopressors. Remains on vent with FiO2 50% and a PEEP of 6 06/23 Patient seen and examined. Patient had tracheostomy revision today and endotracheal tube removed. Ventilating well. Heart rates in the 80s to 90s on the decreased dose of amiodarone. 06/24/2024 Patient is seen and examined at bedside this a.m. Patient underwent tracheostomy and PEG tube placement yesterday. He still on ventilator support, rate controlled atrial fibrillation. PHYSICAL EXAMINATION: vitals reviewed, intubated and sedated LUNGS: Tracheostomy tube in place, on vent support, mild crackles audible. HEART: Irregular rate and rhythm, S1, S2. No S3. Systolic ejection murmur ABDOMEN: Soft, positive bowel sounds, no organomegaly EXTREMETIES: +1 edema IMPRESSION: 1. Acute respiratory failure with bilateral pneumonia and influenza A requiring mechanical ventilation 2. Paroxysmal atrial fibrillation status post ablation in 2023 3. Acute renal injury related to the sepsis and hypotension,, good urine output 4. Leukocytosis 5. Anemia 6. Septic shock on vasoperssors PLAN: Continue amiodarone 200 mg twice daily for next 1 week, thereafter from 06/28/2024, reduce it to 200 mg daily Start Eliquis 5 mg twice daily, continue metoprolol Continue Lasix 40 mg IV twice daily Objective - Vital Signs Vital signs: Vital Signs Temp 99.3 F 06/24/24 12:00 Pulse 90 06/24/24 12:00 Resp 29 H 06/24/24 12:00 BP 152/69 06/24/24 11:00 Pulse Ox 97 06/24/24 12:00 FiO2 45 06/24/24 14:51 Intake & Output 06/23/24 06/24/24 06/24/24 18:59 06:59 18:59 Intake Total 0608.763 4426.199 723.533 Output Total 1935 1645 395 Balance -569.754 273.199 328.533 Weight 106.9 kg 106.9 kg Intake: IV 306 156 152 .9 @ KVO 120 120 40 0.9 Nomal Saline Pressure 36 36 12 Bag Fluconazole in NaCl,Iso- 100 100 Osm 200 mg In Saline 1 100ml.bag @ 100 mls/hr IVPB DAILY [facility] Rx#: [id number] cefTRIAXone 2 gm In 50 Sodium Chloride 0.9% 50 ml @ 100 mls/hr IVPB Q24HR [facility] Rx#:[id number] Intake, IV Titration 49.246 142.199 31.533 Amount propofoL 1,000 mg In 49.246 142.199 31.533 Empty Bag 1 bag @ 15 MCG/ KG/MIN 8.981 mls/hr IV . Q11H9M [facility] Rx#:[id number] Tube Feeding 210 420 140 Other 800 1200 400 Output: Chest Tube Drainage 0 60 Left Anterior Chest 0 20 Right Anterior Chest 0 40 Urine 1935 1585 395 Other: Voiding Method Indwelling Catheter Indwelling Catheter Indwelling Catheter ABP, PAP, CO, CI - Last Documented Arterial Blood Pressure 151/77 - Labs CBC & Chem 7: 06/24/24 04:17 06/24/24 04:17 Labs: Abnormal Lab Results - Last 24 Hours (Table) 06/23/24 06/23/24 06/23/24 Range/Units 18:10 20:13 22:57 WBC (3.8-10.6) k/uL RBC (4.30-5.90) m/uL Hgb (13.0-17.5) gm/dL Hct (39.0-53.0) % MCHC (31.0-37.0) g/dL RDW (11.5-15.5) % Neutrophils # (1.3-7.7) k/uL Lymphocytes # (1.0-4.8) k/uL ABG pH (7.35-7.45) ABG pO2 (83-108) mmHg ABG HCO3 (21-25) mmol/L ABG Total CO2 (19-24) mmol/L ABG O2 Saturation (94-97) % Hemoglobin (13.0-17.5) gm/dL BUN (9-20) mg/dL Creatinine (0.66-1.25) mg/dL Glucose (74-99) mg/dL POC Glucose (mg/dL) 132 H 120 H 121 H (70-110) mg/dL Calcium (8.4-10.2) mg/dL 06/24/24 06/24/24 06/24/24 Range/Units 04:17 04:17 05:00 WBC 14.4 H (3.8-10.6) k/uL RBC 3.03 L (4.30-5.90) m/uL Hgb 8.7 L (13.0-17.5) gm/dL Hct 28.7 L (39.0-53.0) % MCHC 30.3 L (31.0-37.0) g/dL RDW 17.5 H (11.5-15.5) % Neutrophils # 13.2 H (1.3-7.7) k/uL Lymphocytes # 0.4 L (1.0-4.8) k/uL ABG pH 7.46 H (7.35-7.45) ABG pO2 64 L (83-108) mmHg ABG HCO3 27 H (21-25) mmol/L ABG Total CO2 29 H (19-24) mmol/L ABG O2 Saturation 92.3 L (94-97) % Hemoglobin 9.3 L (13.0-17.5) gm/dL BUN 76 H (9-20) mg/dL Creatinine 1.46 H (0.66-1.25) mg/dL Glucose 124 H (74-99) mg/dL POC Glucose (mg/dL) (70-110) mg/dL Calcium 8.0 L (8.4-10.2) mg/dL 06/24/24 06/24/24 Range/Units 06:04 12:15 WBC (3.8-10.6) k/uL RBC (4.30-5.90) m/uL Hgb (13.0-17.5) gm/dL Hct (39.0-53.0) % MCHC (31.0-37.0) g/dL RDW (11.5-15.5) % Neutrophils # (1.3-7.7) k/uL Lymphocytes # (1.0-4.8) k/uL ABG pH (7.35-7.45) ABG pO2 (83-108) mmHg ABG HCO3 (21-25) mmol/L ABG Total CO2 (19-24) mmol/L ABG O2 Saturation (94-97) % Hemoglobin (13.0-17.5) gm/dL BUN (9-20) mg/dL Creatinine (0.66-1.25) mg/dL Glucose (74-99) mg/dL POC Glucose (mg/dL) 131 H 123 H (70-110) mg/dL Calcium (8.4-10.2) mg/dL
--- NOTE | 2024-06-24 17:29 | CT ---
EXAMINATION TYPE: CT brain wo con DATE OF EXAM: 06/24/2024 5:16 PM COMPARISON: 06/10/2024. CLINICAL INDICATION: Male, 69 years old with history of ams, AMS. TECHNIQUE: Brain: Axial CT images of the brain were obtained with coronal and sagittal reformats created and rev iewed. Contrast used: None. Oral contrast used: None. CT DLP: 1300.9 mGycm, Automated exposure control for dose reduction was used. FINDINGS: Brain: Extra-axial spaces: No abnormal extra-axial fluid collections. Ventricular system: Within normal limits Cerebral parenchyma: No acute intraparenchymal hemorrhage or mass effect. The ying-white junction is well differentiated. Cerebellum: Unremarkable. Mass effect: No evidence of midline shift. Intracranial vasculature: unremarkable Soft tissues: Normal. Calvarium/osseous structures: No depressed skull fracture. Paranasal sinuses and mastoid air cells: Opacified mastoid air cells bilaterally and right middle ear . Mild paranasal sinus disease. Visualized orbits: Each globe is pointing laterally to its retrospective side. Subcutaneous gas seen in the game warden spaces bilaterally and scattered throughout the visualized he ad. IMPRESSION: 1. No acute intracranial process. 2. Subcutaneous gas in the myofascial planes of the face and Neck including the game warden spaces fu rther evaluation of the chest recommended as cause of this gas is unknown. 3. No evidence for acute intracranial process. 4. Severe bilateral mastoid air cell cell effusions. Right middle ear effusion. Correlate for otomas toiditis. Findings new from 06/10/2024. [facility], , 06/24/2024 5:27 PM
[2024-06-24 18:31] LABS: Glucose,Whole Blood 136 mg/dL (70-110)
[2024-06-24] MEDS: APIXABAN 5 MG TAB PO SCH (20:04)
[2024-06-24 20:15] LABS: Glucose,Whole Blood 135 mg/dL (70-110)
[2024-06-24 23:44] LABS: Glucose,Whole Blood 141 mg/dL (70-110)
[2024-06-25 04:57] LABS: Anisocytosis Slight; Basophils % (A) 0 %; Eosinophils % (A) 0 %; HCT 27.7 % (39.0-53.0); HGB 8.7 gm/dL (13.0-17.5); Hypochromasia Moderate; Lymphocytes # (A) 0.3 k/uL (1.0-4.8); Lymphocytes % (A) 2 %; MCH 29.6 pg (25.0-35.0); MCHC 31.2 g/dL (31.0-37.0); MCV 94.8 fL (80.0-100.0); Macrocytosis Slight; Mean Platelet Volume 11.5; Monocytes # (A) 0.4 k/uL (0-1.0); Monocytes % (A) 3 %; Neutrophils # (A) 12.9 k/uL (1.3-7.7); Neutrophils % (A) 94 %; Platelet Count 212 k/uL (150-450); RBC 2.93 m/uL (4.30-5.90); RDW 16.8 % (11.5-15.5); WBC 13.7 k/uL (3.8-10.6)
[2024-06-25 05:09] LABS: ABG HCO3 27 mmol/L (21-25); ABG Oxygen Saturation 98.3 % (94-97); ABG PCO2 41 mmHg (35-45); ABG PH 7.44 (7.35-7.45); ABG PO2 104 mmHg (83-108); ABG TCO2 29 mmol/L (19-24)
[2024-06-25 05:14] LABS: African American GFR (CKD) 60 (>60 ml/min/1.73 sqM); Anion Gap 6 mmol/L; Blood Urea Nitrogen 73 mg/dL (9-20); Calcium 7.9 mg/dL (8.4-10.2); Carbon Dioxide 27 mmol/L (22-30); Chloride 105 mmol/L (98-107); Glucose 145 mg/dL (74-99); Non-African American GFR(CKD) 52 (>60 ml/min/1.73 sqM); Sodium 138 mmol/L (137-145)
[2024-06-25 05:34] LABS: Allen Test Performed? No
[2024-06-25 05:44] LABS: Glucose,Whole Blood 159 mg/dL (70-110)
--- NOTE | 2024-06-25 07:06 | XR ---
EXAMINATION TYPE: XR chest 1V portable DATE OF EXAM: 06/25/2024 5:34 AM COMPARISON: Chest radiographs from 13/06/2024 CLINICAL INDICATION: Male, 69 years old with history of mechanical ventilation; [facility] TECHNIQUE: XR chest 1V portable Frontal view of the chest. FINDINGS: Lungs/Pleura: Prominent interstitial lung markings are seen scattered throughout the lungs. No eviden ce of focal consolidation, pneumothorax or pleural effusion. Pulmonary vascularity: Unremarkable. Heart/mediastinum: Cardiomediastinal silhouette is unremarkable. Musculoskeletal: No acute osseous pathology. Other findings: Subcutaneous emphysema scattered throughout the visualized thorax. Lines/Tubes: Tracheostomy cannula tip projecting over the trachea. Right-sided PICC line with distal tip at the cavoatrial junction. Bilateral thoracotomy tubes are present without evidence of pneumothorax. IMPRESSION: Stable support tubes and right PICC. Stable evaluation of the lungs. [facility], , 06/25/2024 7:04 AM
[2024-06-25 08:19] VITALS: TEMP 98.4
--- NOTE | 2024-06-25 10:01 | P.PN ---
Subjective Patient is seen for follow-up for acute kidney injury. Renal function is improving. Patient remains on the vent. FiO2 increased to 70% today On IV Lasix 40 mg every 12 hours. Urine output 120 to 100 mL/h. Objective - Vital Signs Vital signs: Vital Signs Temp 98.4 F 06/25/24 08:00 Pulse 99 06/25/24 08:57 Resp 21 06/25/24 08:57 BP 129/61 06/25/24 08:00 Pulse Ox 95 06/25/24 08:00 FiO2 60 06/25/24 08:43 Intake & Output 06/24/24 06/25/24 06/25/24 18:59 06:59 18:59 Intake Total 7955.372 2839.249 526.329 Output Total 2019 2261 228 Balance -392.467 -1256.751 298.329 Weight 106.9 kg 105.8 kg Intake: IV 256 169 13 .9 @ KVO 120 130 10 0.9 Nomal Saline Pressure 36 39 3 Bag Fluconazole in NaCl,Iso- 100 Osm 200 mg In Saline 1 100ml.bag @ 100 mls/hr IVPB DAILY [facility] Rx#: [id number] Intake, IV Titration 31.533 120.249 58.329 Amount propofoL 1,000 mg In 31.533 120.249 58.329 Empty Bag 1 bag @ 15 MCG/ KG/MIN 8.981 mls/hr IV . Q11H9M [facility] Rx#:[id number] Tube Feeding 540 715 55 Other 800 400 Output: Chest Tube Drainage 36 28 Left Anterior Chest 30 8 Right Anterior Chest 6 20 Urine 2020 2225 200 Other: Voiding Method Indwelling Catheter Indwelling Catheter ABP, PAP, CO, CI - Last Documented Arterial Blood Pressure 117/49 - Exam Patient is sedated and on the vent Examination of the heart S1 and S2 Examination the lungs bilateral breath sounds are heard Abdomen is soft obese Examination of lower extremity shows 1+ edema with improving scrotal edema. - Labs CBC & Chem 7: 06/25/24 04:20 06/25/24 04:20 Labs: Abnormal Lab Results - Last 24 Hours (Table) 06/24/24 06/24/24 06/24/24 Range/Units 12:15 18:30 20:13 WBC (3.8-10.6) k/uL RBC (4.30-5.90) m/uL Hgb (13.0-17.5) gm/dL Hct (39.0-53.0) % RDW (11.5-15.5) % Neutrophils # (1.3-7.7) k/uL Lymphocytes # (1.0-4.8) k/uL ABG HCO3 (21-25) mmol/L ABG Total CO2 (19-24) mmol/L ABG O2 Saturation (94-97) % Hemoglobin (13.0-17.5) gm/dL BUN (9-20) mg/dL Creatinine (0.66-1.25) mg/dL Glucose (74-99) mg/dL POC Glucose (mg/dL) 123 H 136 H 135 H (70-110) mg/dL Calcium (8.4-10.2) mg/dL 06/24/24 06/25/24 06/25/24 Range/Units 23:42 04:20 04:20 WBC 13.7 H (3.8-10.6) k/uL RBC 2.93 L (4.30-5.90) m/uL Hgb 8.7 L (13.0-17.5) gm/dL Hct 27.7 L (39.0-53.0) % RDW 16.8 H (11.5-15.5) % Neutrophils # 12.9 H (1.3-7.7) k/uL Lymphocytes # 0.3 L (1.0-4.8) k/uL ABG HCO3 (21-25) mmol/L ABG Total CO2 (19-24) mmol/L ABG O2 Saturation (94-97) % Hemoglobin (13.0-17.5) gm/dL BUN 73 H (9-20) mg/dL Creatinine 1.38 H (0.66-1.25) mg/dL Glucose 145 H (74-99) mg/dL POC Glucose (mg/dL) 141 H (70-110) mg/dL Calcium 7.9 L (8.4-10.2) mg/dL 06/25/24 06/25/24 Range/Units 05:03 05:43 WBC (3.8-10.6) k/uL RBC (4.30-5.90) m/uL Hgb (13.0-17.5) gm/dL Hct (39.0-53.0) % RDW (11.5-15.5) % Neutrophils # (1.3-7.7) k/uL Lymphocytes # (1.0-4.8) k/uL ABG HCO3 27 H (21-25) mmol/L ABG Total CO2 29 H (19-24) mmol/L ABG O2 Saturation 98.3 H (94-97) % Hemoglobin 8.8 L (13.0-17.5) gm/dL BUN (9-20) mg/dL Creatinine (0.66-1.25) mg/dL Glucose (74-99) mg/dL POC Glucose (mg/dL) 159 H (70-110) mg/dL Calcium (8.4-10.2) mg/dL Assessment and Plan Assessment: 1. Acute kidney injury, oliguric ATN from severe hypotension and sepsis. UA shows 1+ protein moderate blood. Ultrasound is unremarkable. Previous creatinine 1.0 on 02/01/2024 2. Septic shock from pneumonia, viral and bacterial pneumonia as well. Sputum culture and blood cultures grew Streptococcus pneumonia 3. Influenza A 4. Severe respiratory acidosis from respiratory failure slowly improving 5. Chronic A-fib status post cardiac ablation 6. Hyperkalemia associated with acute kidney injury, improved 7. Hypernatremia associated with free water deficit, improved Plan: Continue with IV Lasix Continue with free water flushes with tube feedings Repeat labs in a.m.
[2024-06-25] MEDS: LORazepam 2 MG/ML INJ IV PRN (10:15)
--- NOTE | 2024-06-25 10:33 | P.PN ---
Subjective Progress Note Date: 06/25/24 SURGICAL PROGRESS NOTE CHIEF COMPLAINT: Respiratory failure HISTORY OF PRESENT ILLNESS: Patient is status post revision of his tracheostomy on 06/23/[address] Huynh. Patient is also status post PEG tube placement on 06/20/2024. Tolerating tube feeds at 55 mL/h. Afebrile. WBC is down from 14.4-13.7 Hgb 8.7 PHYSICAL EXAM: VITAL SIGNS: Reviewed. GENERAL: Well-developed in no acute distress. HEENT: Tracheostomy site clean dry and intact. No evidence of air leak ABDOMEN: Soft. Nondistended. PEG tube site clean dry and intact ASSESSMENT: 1. Acute hypoxic respiratory failure with pneumonia and influenza A 2. Severe protein calorie malnutrition 3. Barotrauma with pneumothorax status post chest tubes PLAN: -Continue to monitor tracheostomy site -Continue PEG tube feedings per industrial waste treatment technician Physician Powder Mill Operator note has been reviewed by physician. Signing provider agrees with the documented findings, assessment, and plan of care. Objective - Vital Signs Vital signs: Vital Signs Temp 98.4 F 06/25/24 08:00 Pulse 99 06/25/24 08:57 Resp 21 06/25/24 08:57 BP 129/61 06/25/24 08:00 Pulse Ox 95 06/25/24 08:00 FiO2 60 06/25/24 08:43 Intake & Output 06/24/24 06/25/24 06/25/24 18:59 06:59 18:59 Intake Total 2711.415 0716.249 526.329 Output Total 20191 228 Balance -392.467 -1256.751 298.329 Weight 106.9 kg 105.8 kg Intake: IV 256 169 13 .9 @ KVO 120 130 10 0.9 Nomal Saline Pressure 36 39 3 Bag Fluconazole in NaCl,Iso- 100 Osm 200 mg In Saline 1 100ml.bag @ 100 mls/hr IVPB DAILY [facility] Rx#: [id number] Intake, IV Titration 31.533 120.249 58.329 Amount propofoL 1,000 mg In 31.533 120.249 58.329 Empty Bag 1 bag @ 15 MCG/ KG/MIN 8.981 mls/hr IV . Q11H9M [facility] Rx#:[id number] Tube Feeding 540 715 55 Other 800 400 Output: Chest Tube Drainage 36 28 Left Anterior Chest 30 8 Right Anterior Chest 6 20 Urine 2020 2225 200 Other: Voiding Method Indwelling Catheter Indwelling Catheter ABP, PAP, CO, CI - Last Documented Arterial Blood Pressure 117/49 - Labs CBC & Chem 7: 06/25/24 04:20 06/25/24 04:20 Labs: Abnormal Lab Results - Last 24 Hours (Table) 06/24/24 06/24/24 06/24/24 Range/Units 12:15 18:30 20:13 WBC (3.8-10.6) k/uL RBC (4.30-5.90) m/uL Hgb (13.0-17.5) gm/dL Hct (39.0-53.0) % RDW (11.5-15.5) % Neutrophils # (1.3-7.7) k/uL Lymphocytes # (1.0-4.8) k/uL ABG HCO3 (21-25) mmol/L ABG Total CO2 (19-24) mmol/L ABG O2 Saturation (94-97) % Hemoglobin (13.0-17.5) gm/dL BUN (9-20) mg/dL Creatinine (0.66-1.25) mg/dL Glucose (74-99) mg/dL POC Glucose (mg/dL) 123 H 136 H 135 H (70-110) mg/dL Calcium (8.4-10.2) mg/dL 06/24/24 06/25/24 06/25/24 Range/Units 23:42 04:20 04:20 WBC 13.7 H (3.8-10.6) k/uL RBC 2.93 L (4.30-5.90) m/uL Hgb 8.7 L (13.0-17.5) gm/dL Hct 27.7 L (39.0-53.0) % RDW 16.8 H (11.5-15.5) % Neutrophils # 12.9 H (1.3-7.7) k/uL Lymphocytes # 0.3 L (1.0-4.8) k/uL ABG HCO3 (21-25) mmol/L ABG Total CO2 (19-24) mmol/L ABG O2 Saturation (94-97) % Hemoglobin (13.0-17.5) gm/dL BUN 73 H (9-20) mg/dL Creatinine 1.38 H (0.66-1.25) mg/dL Glucose 145 H (74-99) mg/dL POC Glucose (mg/dL) 141 H (70-110) mg/dL Calcium 7.9 L (8.4-10.2) mg/dL 06/25/24 06/25/24 Range/Units 05:03 05:43 WBC (3.8-10.6) k/uL RBC (4.30-5.90) m/uL Hgb (13.0-17.5) gm/dL Hct (39.0-53.0) % RDW (11.5-15.5) % Neutrophils # (1.3-7.7) k/uL Lymphocytes # (1.0-4.8) k/uL ABG HCO3 27 H (21-25) mmol/L ABG Total CO2 29 H (19-24) mmol/L ABG O2 Saturation 98.3 H (94-97) % Hemoglobin 8.8 L (13.0-17.5) gm/dL BUN (9-20) mg/dL Creatinine (0.66-1.25) mg/dL Glucose (74-99) mg/dL POC Glucose (mg/dL) 159 H (70-110) mg/dL Calcium (8.4-10.2) mg/dL
--- NOTE | 2024-06-25 10:41 | P.PN ---
Subjective Progress Note Date: 06/25/24 Acute hypoxic respiratory failure with sepsis secondary to streptococcal pneumonia 69-year-old male patient came into the emergency department for shortness of breath. According to the significant other, the patient was sick approximately a week ago and his condition has been progressively getting worse. The patient has been falling. He has been having difficulties in keeping himself up and moving around over the past 24 hours. Based on that, he came into the emergency department. His initial pulse ox was 60% and he was placed on a BiPAP and rapidly following that, the patient was intubated and placed on the mechanical ventilator. Chest x-ray at time of admission showed extensive pneumonia with left upper lobe consolidation and air bronchograms and bibasilar pulmonary infiltrates. Patient tested positive for influenza A. Postintubation, the patient's blood gases showed a pH of 7.36 with a pCO2 of 43 and pO2 of 60. Nevertheless, by the time he arrived to the ICU, the patient was again hypoxic with a pulse ox of 78%. Necessary ventilator changes were done and currently the patient is in a rate of 26, tidal volume of 375, PEEP of 24 with an FiO2 of 100% and expiratory pause of 0.2 ms. The blood gas showed a pH of 7.16 with a pCO2 of 77 and pO2 of 66. Triple-lumen catheter was established in the left IJ. Arterial line was also established. The patient is currently on Tamiflu. He was also started on broad-spectrum antibiotics utilizing a combination of cefepime Zithromax and vancomycin. Started on systemic steroids. Hemodynamically stable. No hypotension. Cardiac rhythm is sinus. According to the significant other, he has history of paroxysmal atrial fibrillation and the patient has undergone ablation. Cardiac rhythm is sinus. He also has hypertension. He is a former smoker. Does not utilize any form of oxygen therapy or inhalers on outpatient basis. No history of bronchial asthma. No history of COPD. No history of any congestion or heart failure. The white cell count of 15.3 with hemoglobin 15.8 and a platelet count of 265. Normal coagulation profile. BUN is 63 with a creatinine 1.42 and a sodium levels at 140 with a potassium level of 4.5. Initial lactic acid level was at 3.8 and dropped down to 2.0. The patient is currently on normal saline at rate of 100 cc an hour. Furthermore, he is sedated with propofol and paralytics with Bumex. In the intensive care unit. 06/14/2024, the patient is being seen for a follow-up. Remains intubated on the mechanical ventilator. This morning, the patient is off paralytics and the patient remains on propofol running at 65 mcg/kg/min. Remains on mechanical ventilator assist-control mode rate of 34, tidal volume of 450, FiO2 of 70% with a PEEP of 18. Blood gas showed a pH of 7.28 with a pCO2 of 59 and pO2 of 89. The patient remains hypotensive and remains on norepinephrine. The patient will be taken off vasopressin. Norepinephrine is running at 0.15 mcg/kg/min. Chest x-ray still showing stable bilateral pulmonary consolidation more extensive in the right lower lobe and the left upper lobe. Remains atrial fibrillation. Remains on IV Rocephin. Continues to receive enteral feeding for nutritional support. Remains on IV heparin regarding his ongoing atrial fibrillation. The WBC count is at 18, still elevated with a hemoglobin 10.3 and a platelet count of 193. Sodium is at 141, potassium is 5.1, bicarb is 27, BUN is 124 and creatinine is at 2.76. Despite ongoing renal failure, the patient is producing urine output. The patient was given Lasix and he continues to receive Lasix 80 mg on a daily basis. Rest of the medications remain unchanged. Completing course of Tamiflu. Remains on IV Rocephin. Remains on a combination of metoprolol 25 mg twice daily and amiodarone 4 mg p.o. twice daily for rate control. 06/15/2024, the patient is being seen for a follow-up. Remains intubated on mechanical ventilator. Remains sedated on propofol. Off paralytics and slig htly asynchronous mechanical ventilator. May need fentanyl. Will continue monitoring his progress. Remains intubated on mechanical ventilator assist- control mode at rate of 36, tidal volume of 450, FiO2 of 70% with a PEEP of 18. Blood gas showed pH of 7.28 with a pCO2 of 64 pO2 of 106. Peak airway pressure is 36. Remains on norepinephrine running at 0.2 mcg/kg/min. Remains on vital HP at rate of 35 cc an hour. Follow-up chest x-ray done today shows improvement in the left upper lobe and right lower lobe pulmonary infiltrates. White cell count is at 19 with a hemoglobin 9.6 and a platelet count of 217. Sodium is at 146, potassium is at 5.7, chloride is 108, BUN is 140 with a creatinine of 2.5. Blood sugar is 200. Calcium level is at 7.4. Did have a episode of fever with a Tmax of 101.3. Remains on Lasix 80 mg IV every 24 hours. Fluid balance is +1.1 L over the past 24 hours and the patient has produced more than 2 L of urine output for yesterday. On 06/16/2024, patient is being seen for a follow-up. The patient remains on mechanical ventilator, sedated with propofol 65 mcg/kg/min and fentanyl at 1 mcg/kg/h. Chest x-ray findings are essentially stable and shows ongoing improvement in bilateral pulmonary infiltrates. Nevertheless, the patient remains intubated on mechanical ventilator. On today's evaluation, he is on assist-control at rate of 34, tidal volume of 450, FiO2 of 50% with a PEEP of 16. Blood gas showed a pH of 7.34 with pCO2 of 64 and pO2 of 79. The patient hemodynamically remains in atrial fibrillation, controlled rate. Vasopressin has been discontinued and norepinephrine has been weaned down to 0.07 mcg/kg/min. Remains on IV Lasix 80 mg every 12 hours. Fluid balance is -1.8 L over the past 24 hours. Remains on IV heparin. Remains on Lantus insulin 25 units daily and vital high-protein at rate of 35 cc an hour. Blood work from today shows a white cell count of 18, hemoglobin 9.1 and platelet count of 206. Sodium is at 151, K is at 5.8, BUN is at 143 with a creatinine of 2.3. Blood sugars at 195. Magnesium level is at 3.8. Calcium level is at 7.3. Patient was seen today on 06/17/2024, remains in the ICU, intubated and [facility] ventilated. Patient is still requiring ventilatory support still requiring hemodynamic support/norepinephrine and he remains quite ill, not ready for any trials of extubation. Patient is on assist-control rate of 34 tidal volume 450 FiO2 50% and PEEP of 16 ABG showed a pO2 of 99 pCO2 64 pH of 7.36. Patient is requiring norepinephrine at 0.03 mcg/kg/min propofol 65 mcg/kg/min Fentanyl 1 mcg/kg/h. Patient is receiving vital HP 35/35. Antibiotics lara he remains on Rocephin patient still on diuretics, seen by nephrology today, and he was placed on Lokelma and insulin was added for hyperkalemia. Patient was initially intubated on 06/10 and today is his seventh day of ventilatory support. Based on physical examination and based on his chest x-ray findings, he remains quite ill and he is not ready for any trials of weaning. Chest x-ray remains quite abnormal and on physical examination he has crackles rhonchi and wheezes noted bilaterally. Patient continues to have leukocytosis with WBC count of 17 hemoglobin is 8.3 D-dimer is 2.25. Sodium is 153 potassium 5.7 patient is on Lokelma, nephrology increased his free water via orogastric tube. Renal profile is abnormal with a BUN of 143 creatinine 2.03 liver enzymes are basically unremarkable LDH however is 320. Chest x-ray showed persistent bilateral multifocal infiltrates and/or atelectasis. But I believe this is mostly infiltrates. Patient was evaluated today on 06/18/2024, remains in the ICU remains intubated and mechanically ventilated still requiring norepinephrine at 0.07 micrograms per kilo per minute for low blood pressure patient remains on assist-control rate of 34 tidal volume 450 FiO2 50% PEEP is 16 and I cut it down to 14 today. ABG showed a pO2 of 100 pCO2 64 pH of 7.38 hence no other changes were made in ventilator settings. Drips lara patient remains on fentanyl at 1 mcg/kg/h propofol 65 mg/kg/min heparin drip, norepinephrine at 0.07 D5W at 75 cc/h Rocephin was renewed today he remains on Lasix 80 mg IV push every 12 hours. Patient is basically about the same, not much has changed between yesterday and today. Chest x-ray continues to show evidence of bilateral multifocal infiltrates and/or atelectasis. No significant change noted in chest x-ray compared to yesterday. Continues to have leukocytosis with WBC of 17.5 hemoglobin is 8.2 sodium is a bit better with sodium of 150 potassium 6.1 being addressed by nephrology BUN is 131 creatinine 1.61 bicarb is 39. Blood sugar is 181. Patient is in sinus rhythm, he is on amiodarone at 400 mg p.o. twice daily, remains on Rocephin remains on Lasix 80 twice daily, on insulin, and on updrafts as well as lactulose. Clearly considering the patient continues to have significantly abnormal chest x-ray and still requiring high PEEP, not ready for any weaning at this point. Patient was seen today on 06/19/2024, remains in the ICU, intubated and mechanically ventilated. Patient could not have mental status assessment yesterday as he seems to get extremely agitated, restless, and hypertensive tachypneic and tachycardic once he is off sedation for mental status assessment. Patient remains on assist-control rate of 34, tidal volume 450 FiO2 50% and PEEP was 14 and I cut it down to 12 today. His ABG showed a pO2 of 95 pCO2 59 pH of 7.44. Remains on fentanyl at 0.5 mcg/kg/h heparin drip, propofol at 55 mcg/kg/min IV fluid 0.9 normal saline at 10 cc/h he is also on Nepro 20/20/enteral feeding. Patient has been on Rocephin all along, chest x-ray continues to show multifocal infiltrates, hence I have ordered repeat sputum culture on this patient, may have to consider even bronchoscopy and BAL. In the meantime I believe it is best to continue the same course of treatment and continue supportive care measures as well as mechanical ventilation. Obviously the patient is not anywhere near weaning hence I am recommending surgical evaluation for possible trach and PEG later this week. Yesterday I had a chance to discuss his condition with his family at bedside. WBC count remains high 14.4 hemoglobin is 8 ABG as noted earlier. Electrolytes are better sodium down to 144 potassium 5 BUN remains high at 113 creatinine 1.45 Patient was seen today on 06/20/2024, patient remains on the ICU, intubated and mechanically ventilated, patient is supposed to have tracheostomy and PEG tube placement today. In the meantime the patient remains on assist-control rate of 34 tidal volume 450 FiO2 50% and PEEP 12 and I cut it down to 10. ABG showed a pO2 of 97 pCO2 54 pH of 7.48. Patient is still requiring low-dose of nor epinephrine at 0.04 mcg/kg/min his fentanyl is 0.5 mg/kg/h propofol 60 mcg/kg/min patient is receiving Nepro at 20/20. Chest x-ray continues show evidence of bilateral infiltrates. CBC continues to show leukocytosis with WBC count of 16.8 hemoglobin 8.3 PTT is 87 however his heparin now is on hold. Basic metabolic profile is normal bicarb is 38 BUN is 100 creatinine is 1.44. Repeat sputum cultures from yesterday showing mostly yeast and many PMNs, Patient was reevaluated today on 06/21/2024, patient underwent tracheostomy and PEG tube placement yesterday, today we are encountering issues with trach around the tracheostomy and seems to be positional, needed more pressure in the cough. Overall the patient is about the same, remains in the ICU, intubated and mechanically ventilated, unable to assess mental status as he is still sedated and on propofol. His norepinephrine today is on hold. His ventilator settings are assist-control rate 34 tidal volume 450 FiO2 50% and PEEP is now down from 10-6. ABG earlier showed a pO2 of 80 pCO2 44 pH of 7.49, I cut down his rate from 34-30 increases tidal volume to 500 Down FiO2 from 10-6. Adjusted his flow rates, now flow rate is 70 L/min. Patient will definitely need a PICC line today, and will address that accordingly. He remains on heparin which needs to be placed on hold before PICC line is placed. He is on propofol at 50 mcg/k g/min and norepinephrine is now on hold. Nephrology is still diuresing the patient with Lasix and Diamox. Antibiotics lara he is on Rocephin and fluconazole. Treating mostly Streptococcus pneumonia and Natalie albicans in the sputum. Chest x-ray continues to show multiple multifocal opacities, small bilateral pleural effusions, slight improvement in chest x-ray noted compared to previous x-rays of the chest. Patient was seen today on 06/22/2024, patient remains in the ICU, intubated and mechanically ventilated, patient had a very eventful morning this morning, apparently his tracheostomy seems to be not functioning great, and I have attempted to change the tracheostomy over a tube changer, his old tracheostomy was losing lots of volume, and even with multiple positioning and even with i nflating the cuff with more air, could not get the patient to have adequate tidal volume. Please refer to the event note done on this patient earlier. At any rate patient is now intubated mechanically ventilated, the old tracheostomy tube was removed, and now he has a size 7.5 endotracheal tube placed and passing the tracheostomy surgical site down close to the marie. He is on assist- control rate of 26 tidal volume 500 FiO2 50% and PEEP of 6 ABG showed a pO2 of 91 pCO2 43 pH of 7.46. Patient remains on propofol, and during the process reintubation in the process of placing chest tubes in this patient, patient had to be placed on Nimbex. However Nimbex will be discontinued and he will be maintained on propofol at 50 mcg/kg/min. His overall clinical status remains very poor, patient is not doing great, and we have not seen any significant improvement since the patient was admitted till now. Remains on Rocephin remains on Lasix 60 mg IV push twice daily remains on propofol, and at 1 point we had to give Nimbex today, patient is off norepinephrine which is presently on hold. Chest x-ray continues show bilateral opacities/multifocal pneumonia. Continues to have leukocytosis with WBC of 18.3 hemoglobin is 9.2 electrolytes are normal BUN is 86 creatinine 1.82 being followed closely by nephrology. Patient was seen today on 06/23/2024, patient remains in the ICU, intubated [facility] ventilated, still on assist-control mode of mechanical ventilation with a rate of 26 tidal volume 500 FiO2 50% and I cut it down to 45%, PEEP down from 6-5. ABG today showed a pO2 of 85 pCO2 45 pH of 7.42. Chest x-ray today showed no evidence of pneumothorax, however he does have mild subcutaneous emphysema improved compared to the subcutaneous emphysema noted yesterday. Patient remain s on antibiotics including Rocephin is also on fluconazole. His chest tubes were reviewed, no evidence of any leak, hence we will go ahead and place a chest tube to waterseal today. And follow-up chest x-ray after 1 hour showed no evidence of any pneumothorax. Patient remains on Diamox is also on Lasix, renal function is improving. Patient continues to have good urine output with diuretics. He is on heparin he is also on propofol at 15 mcg/kg/min. Today he is not hypotensive he is not requiring pressors. However the patient has multiple issues, and today I had a chance to discuss his condition with his brother over the phone, and we talked about the concern about having to go back and place another tracheostomy tube, his brother did not make that decision yet whether to proceed with a tracheostomy or to discussed with family and obviously he is considering comfort care measures. Patient remains quite ill, and has multiple comorbidities. WBC count is 19.6 hemoglobin 9.2. Basic metabolic profile is normal BUN is 82 creatinine 1.58 06/24/2024: Patient 69-year-old male that was admitted to the ICU on 06/10/2024 due to acute hypoxic respiratory failure with sepsis. His initial pulse ox was 60% and he was placed on a BiPAP and rapidly following that, the patient was intubated and placed on the mechanical ventilator on 06/10/2024. Chest x-ray at time of admission showed extensive pneumonia with left upper lobe consolidation and air bronchograms and bibasilar pulmonary infiltrates. Patient tested positive for influenza. Patient was seen today on 06/24/2024. He remains in the ICU, mechanically ventillated and sedated. Currently on assist control mode of mechanical ventillation with rate of: 26, TV 500, FIO2 45% PEEP 5. ABG: pH 7.46, pCO2 39, pO2 64. Currently on propofol 10 mcg/kg/min. Remains on Rocephin 2g IVP every 24 hours that is due for renewal today. Remains Fluconazole 20 mg IVPB daily due to Natalie found in sputum culture. He is on IV Solu-Medrol 40 cc/hr. Vital HP tube feed at goal of 35. Chest tubes are showing evidence no air leaks. Patient no acute events overnight. Repeat chest x-ray independently interpreted displaying scattered infiltrates in both lung ward, unchanged from prior. Labs: WBC 14.4, Hgb 8.7, HCT 28.7, platelet 215. Sodium 140, potassium 3.8, BUN 76, creatinine 1.46. Patient was seen today on 06/26/2024 in room 253. He continues on mechanical ventilation, with volume assist-control, rate 26, tidal volume 500, FiO2 65%, PEEP of 5. Blood gases show a pO2 of 104, pCO2 41, and pH is 7.44. The patient is currently off sedation, on vital HP at 55 cc an hour, and saline at 10 cc. We patient on some Ativan and Dilaudid . Bilateral chest tubes showing no air leak, will remove left chest tube today and right tube tomorrow. CT brain showed no acute intracrainal process. I spoke with patients brother regarding goals of care. Patient's brother states they want to continue with trach/PEG and long-term care, will consider comfort care if unable to get off of trach. White count 13.7, hemoglobin 8.7, hematocrit 27.7, and platelet count is 212,000. Sodium 138, potassium 4.0, chlorides 105, CO2 27, BUN is 73, and creatinine is 1.38. Glucose is 123. Calcium is 7.9. Chest x-ray shows bilateral chest tubes, without obvious pneumothorax. Labs, x-rays, and all medications have been reviewed. Patient remains off sedation, and is in appropriate and stable condition for long-term care placement. Objective - Vital Signs Vital signs: Vital Signs Temp 98.7 F 06/24/24 20:00 Pulse 82 06/25/24 06:00 Resp 19 06/25/24 06:00 BP 152/70 06/25/24 06:00 Pulse Ox 95 06/25/24 06:00 FiO2 70 06/25/24 03:55 Intake & Output 06/24/24 06/24/24 06/25/24 06:59 18:59 06:59 Intake Total 1075.457 6806.533 936.249 Output Total 1642019 Balance 273.199 -392.467 -1124.751 Weight 106.9 kg 106.9 kg 105.8 kg Intake: IV 156 256 156 .9 @ KVO 120 120 120 0.9 Nomal Saline Pressure 36 36 36 Bag Fluconazole in NaCl,Iso- 100 Osm 200 mg In Saline 1 100ml.bag @ 100 mls/hr IVPB DAILY JACQUES Rx#: [id number] Intake, IV Titration 142.199 31.533 120.249 Amount propofoL 1,000 mg In 142.199 31.533 120.249 Empty Bag 1 bag @ 15 MCG/ KG/MIN 8.981 mls/hr IV . [id number] JACQUES Rx#:[id number] Tube Feeding 420 540 660 Other 1200 800 Output: Chest Tube Drainage 60 36 Left Anterior Chest 20 30 Right Anterior Chest 40 6 Urine 1585 2019 2024 Other: Voiding Method Indwelling Catheter Indwelling Catheter Indwelling Catheter ABP, PAP, CO, CI - Last Documented Arterial Blood Pressure 113/47 - Labs CBC & Chem 7: 06/25/24 04:20 06/25/24 04:20 Labs: Abnormal Lab Results - Last 24 Hours (Table) 06/24/24 06/24/2406/24/25 Range/Units 12:15 18:30 20:13 WBC (3.8-10.6) k/uL RBC (4.30-5.90) m/uL Hgb (13.0-17.5) gm/dL Hct (39.0-53.0) % RDW (11.5-15.5) % Neutrophils # (1.3-7.7) k/uL Lymphocytes # (1.0-4.8) k/uL ABG HCO3 (21-25) mmol/L ABG Total CO2 (19-24) mmol/L ABG O2 Saturation (94-97) % Hemoglobin (13.0-17.5) gm/dL BUN (9-20) mg/dL Creatinine (0.66-1.25) mg/dL Glucose (74-99) mg/dL POC Glucose (mg/dL) 123 H 136 H 135 H (70-110) mg/dL Calcium (8.4-10.2) mg/dL 06/24/24 06/25/24 06/25/24 Range/Units 23:42 04:20 04:20 WBC 13.7 H (3.8-10.6) k/uL RBC 2.93 L (4.30-5.90) m/uL Hgb 8.7 L (13.0-17.5) gm/dL Hct 27.7 L (39.0-53.0) % RDW 16.8 H (11.5-15.5) % Neutrophils # 12.9 H (1.3-7.7) k/uL Lymphocytes # 0.3 L (1.0-4.8) k/uL ABG HCO3 (21-25) mmol/L ABG Total CO2 (19-24) mmol/L ABG O2 Saturation (94-97) % Hemoglobin (13.0-17.5) gm/dL BUN 73 H (9-20) mg/dL Creatinine 1.38 H (0.66-1.25) mg/dL Glucose 145 H (74-99) mg/dL POC Glucose (mg/dL) 141 H (70-110) mg/dL Calcium 7.9 L (8.4-10.2) mg/dL 03/04/25 03/04/25 Range/Units 05:03 05:43 WBC (3.8-10.6) k/uL RBC (4.30-5.90) m/uL Hgb (13.0-17.5) gm/dL Hct (39.0-53.0) % RDW (11.5-15.5) % Neutrophils # (1.3-7.7) k/uL Lymphocytes # (1.0-4.8) k/uL ABG HCO3 27 H (21-25) mmol/L ABG Total CO2 29 H (19-24) mmol/L ABG O2 Saturation 98.3 H (94-97) % Hemoglobin 8.8 L (13.0-17.5) gm/dL BUN (9-20) mg/dL Creatinine (0.66-1.25) mg/dL Glucose (74-99) mg/dL POC Glucose (mg/dL) 159 H (70-110) mg/dL Calcium (8.4-10.2) mg/dL Assessment and Plan Assessment: Acute hypoxic respiratory failure secondary to bilateral pneumococcal pneumonia and septic shock. Remains intubated and mechanically ventilated Status post tracheostomy and PEG tube placement on 06/20/2024 Bilateral pneumococcal pneumonia, in the setting of acute influenza infection Septic shock, second pneumococcal pneumonia with bacteremia. Acute kidney injury, likely acute tubular necrosis being followed by nephrology Acute leukocytosis, secondary to above Atrial fibrillation with rapid ventricular response, currently on amiodarone .. Remains on IV heparin. History of hypertension Hypernatremia secondary to free water deficit, resolved Significant yeast noted in the sputum, presently on fluconazole Status post removal of old tracheostomy because of air leak around the cuff and was not functioning properly. 06/22/2024 Status post reintubation after the tracheostomy was removed on 06/22/2024 Bilateral pneumothorax and pneumomediastinum with subcutaneous emphysema secondary to barotrauma requiring bilateral chest tube placement on 06/22/2024. However today there is no evidence of pneumothorax, and there is no air leak, chest tubes were placed to waterseal. Plan: Place chest tubes to waterseal and follow-up chest x-ray was done there is no evidence of pneumothorax, patient has mostly subcu emphysema. Continue ventilatory support Patient is currently off sedation Continue nutritional status/enteral feeding Continue fluconazole Continue hemodynamic support if needed/norepinephrine, presently not requiring norepinephrine Continue diuretics Continue systemic steroids/Solu-Medrol Continue GI and DVT prophylaxis Continue insulin Continue oral amiodarone and heparin CT brain without contrast showed no acute intracrainal process Left chest tube was removed today - will repeat chest xray 1 hour after. plan for right tube to be removed tomorrow Patient remains off sedation, and is in appropriate and stable condition for termite helper care placement. Discussed his condition with his brother over the phone. Family has decided to go forward with tracheostomy and PEG tube placement followed by placement in long-term facility. States will consider comfort care afterwards.
[2024-06-25] MEDS: HYDROmorphone 1 MG/ML 1 ML SYRINGE IVP PRN (10:44)
[2024-06-25 11:10] VITALS: BMI 33.5
[2024-06-25 11:28] LABS: Glucose,Whole Blood 164 mg/dL (70-110)
--- NOTE | 2024-06-25 11:49 | XR ---
EXAMINATION TYPE: XR chest 1V portable DATE OF EXAM: 06/25/2024 11:44 AM COMPARISON: Chest radiographs from same day CLINICAL INDICATION: Male, 69 years old with history of pneumothorax; [facility] TECHNIQUE: XR chest 1V portable Frontal view of the chest. FINDINGS: Lungs/Pleura: Prominent interstitial lung markings are seen scattered throughout the lungs. No eviden ce of focal consolidation, pneumothorax or pleural effusion. Pulmonary vascularity: Unremarkable. Heart/mediastinum: Cardiomediastinal silhouette is unremarkable. Musculoskeletal: No acute osseous pathology. Other findings: Subcutaneous emphysema scattered throughout the visualized thorax. Lines/Tubes: Tracheostomy cannula tip projecting over the trachea. Right thoracotomy tube is present without evidence of pneumothorax. Left thoracotomy tube has been re moved No evidence for pneumothorax. IMPRESSION: Right thoracotomy tube no appreciable pneumothorax. Removal of left thoracotomy tube no appreciable pneumothorax. [facility], , 06/25/2024 11:47 AM
--- NOTE | 2024-06-25 13:30 | P.DS ---
Providers Date of admission: 06/10/24 15:41 Expected date of discharge: 06/25/24 Attending physician: Mary Kay Osborne MD Consults: 06/10/24 15:41 Consult Physician Stat Consulting Provider: Sonia Stovall Consult Reason/Comments: Critical care management Do you want consulting provider notified?: Yes 06/11/24 09:08 Consult Physician Urgent Consulting Provider: Anny Valdez Consult Reason/Comments: maxi Do you want consulting provider notified?: Yes 06/12/24 03:04 Consult Physician Routine Consulting Provider: Jami Tirado Consult Reason/Comments: afib RVR Do you want consulting provider notified?: Yes, Notify in am 06/19/24 10:35 Consult Physician Routine Consulting Provider: Terrance Huynh Consult Reason/Comments: Trach and PEG Do you want consulting provider notified?: Yes Primary care physician: [facility] Course: 69 year old M with PMH of HTN, GERD preesnts to the ED for shortness of breath, fever and hypoxia. Multiple family members sick at home. In the ED he underwent extensive evaluation. BP 143/62, HR 83, RR as high as 51, T 100F. CBC, Coag panel, CMP signifcant for WBC 15.3, bicarb 20, BUN 63, Cr 1.42, glu 105, alb 2.9. Lactic acid 3.8-2. Flu +. CXR bilateral consolidation. CT head and C-spine no acute process. EKG A-Fib with PVCs. O2 sat noted to be in the 60's, placed on BiPAP and subsequently intubated on 06/10. Started on Vancomycin, Cefepime and Azithromycin along with bronchodilators and SoluMedrol. Procal 1.84. BCx and Sputum Cx strep pneumoniae. MRSA swab negative, Vancomycin discontinued. Required Levophed from 06/11-06/21. Antibiotics deescaladed to Rocephin 2g IV QD. Completed course of Tamiflu.Sputum culture also grew Natalie for which he is receiving Fluconazole. Noted to have bilateral pneumothorax, bilateral chest tubes inserted by Pulmonary 06/22. Cardiology cosulted for A-Fib with RVR. Echo showed EF 55-60%. He was on amiodarone and heparin drip eventually switched to Amiodarone, Metoprolol and Eliquis. Nephrology consulted for worsening renal function and acidosis. Renal US neg for hydronephrosis. Received bicarb drip. Currently being diuresed with Lasix IV. Underwent trach and PEG on 06/20 with revision of trach on 06/23. 06/25 Patient was seen and examined. Currently off Propofol. Vent settings rate 26, tidal volume 500, FiO2 60%, PEEP of 5. Left side chest tube discontinued today. Brain CT done yesterday shows no acute process with subcutaneous gas of the face and neck along with severe bilateral mastoid effusions concerning for otomastoiditis. CXR done today shows successful removal of the left chest tube with bilateral consolidations. CBC, Coag panel, BMP done today significant for WBC 13.7, RBC 2.93, Hg 8.7, Hct 27.7, BUN 73, Cr 1.38, glu 145, Ca 7.9. ABG pH 7.44, pCO2 41, pO2 98.3 on FiO2 70%. Plans to transfer to LTAC today. Fluconazole started 06/20 which is continued. Lasix 40 mg IV BID started 06/22 which is continued. Completed course of Rocephin + Azithromycin. Continue Protonix 40 mg IV QD. Plans to discontinue R chest tube 06/26. General: Intubated. Derm: warm, dry Head: atraumatic, normocephalic, symmetric, Tracheostomy Eyes: no lid lag, anicteric sclera Mouth: no lip lesion, mucus membranes moist Cardiovascular: S1S2 reg, no murmur, R chest tube Lungs: Bilateral rhonchi, no rales , no accessory muscle use Ext: no gross muscle atrophy, 2+ pitting lower extremity edema, no contractures Neuro: Unable to determine Psych: Unable to determine PEG intact. Discharge Diagnosis: Septic shock secondary with Acute Hypoxic Respiratory Failure Community-acquired Strep Pneumo pneumonia, Influenza A infection Strep Pneumo bacteremia Natalie in sputum cultures Steroid induced hyperglycemia with Prediabetes Normocytic anemia Acute Kidney Injury secondary to ATN Persistent A-fib status post ablation Hypertension GERD Left forehead lipoma Obesity, Class III Resolved: Hyperkalemia, Hypernatremia secondary to free water deficit, Metabolic Alkalosis/Acidosis This complex discharge took 45 minutes to complete. Patient Condition at Discharge: Critical Plan - Discharge Summary New Discharge Prescriptions: New bisacodyL [Dulcolax] 10 mg RECTAL DAILY PRN suppositor PRN Reason: Constipation Ipratropium-Albuterol Nebulize [Duoneb 0.5 mg-3 mg/3 ml Soln] 3 ml INHALATION RT-Q4H PRN each PRN Reason: Shortness Of Breath Or Wheezing Insulin Glargine (Lantus) [Lantus Vial] 25 unit SQ BID@0700,2100 each Metoprolol Tartrate [Lopressor] 25 mg PO BID tab Chlorhexidine Gluconate [Peridex] 15 ml MUCOUS MEM BID ml Artificial Tears-Hypromellose [Artificial Tear Drops] 2 drops BOTH EYES QID PRN ml PRN Reason: Dry Eye(S) Amiodarone [Cordarone] 200 mg PO BID tab Fluconazole in NaCl,Iso-Osm [Diflucan 200 mg/100 ml IVPB] 200 mg IVPB DAILY each INSULIN LISPRO (HumaLOG) [HumaLOG] 0 unit SQ Q6HR each INSULIN LISPRO (HumaLOG) [HumaLOG] 5 unit SQ Q6H each Continue Apixaban [Eliquis] 5 mg PO BID Discontinued Meloxicam [Mobic] 15 mg PO DAILY PRN PRN Reason: Pain amLODIPine [Norvasc] 10 mg PO DAILY traMADol HCl [Ultram] 100 mg PO BID PRN PRN Reason: Pain amLODIPine [Norvasc] 10 mg PO DAILY PRN PRN Reason: Blood Pressure - High Metoprolol Succinate (ER) [Toprol Xl] 50 mg PO DAILY Losartan Potassium 100 mg PO DAILY traMADol HCL 50 mg PO Q6H PRN PRN Reason: Pain Metoprolol Succinate (ER) [Toprol XL] 50 mg PO DAILY #90 tab Meloxicam [Mobic] 15 mg PO DAILY PRN PRN Reason: Pain Losartan Potassium [Cozaar] 100 mg PO DAILY No Action Omeprazole 40 mg PO DAILY Omeprazole [PriLOSEC] 40 mg PO DAILY Discharge Medication List Apixaban [Eliquis] 5 mg PO BID 02/15/22 [History] Omeprazole 40 mg PO DAILY 02/15/22 [History] Omeprazole [PriLOSEC] 40 mg PO DAILY 06/10/24 [History] Amiodarone [Cordarone] 200 mg PO BID tab 06/25/24 [Rx] Artificial Tears-Hypromellose [Artificial Tear Drops] 2 drops BOTH EYES QID PRN ml 03/04/25 [Rx] Chlorhexidine Gluconate [Peridex] 15 ml MUCOUS MEM BID ml 06/25/24 [Rx] Fluconazole in NaCl,Iso-Osm [Diflucan 200 mg/100 ml IVPB] 200 mg IVPB DAILY each 06/25/24 [Rx] INSULIN LISPRO (HumaLOG) [HumaLOG] 0 unit SQ Q6HR each 06/25/24 [Rx] INSULIN LISPRO (HumaLOG) [HumaLOG] 5 unit SQ Q6H each 06/25/24 [Rx] Insulin Glargine (Lantus) [Lantus Vial] 25 unit SQ BID@0700,2100 each 06/25/24 [Rx] Ipratropium-Albuterol Nebulize [Duoneb 0.5 mg-3 mg/3 ml Soln] 3 ml INHALATION RT-Q4H PRN each 06/25/24 [Rx] Metoprolol Tartrate [Lopressor] 25 mg PO BID tab 06/25/24 [Rx] bisacodyL [Dulcolax] 10 mg RECTAL DAILY PRN suppositor 06/25/24 [Rx] Follow up Appointment(s)/Referral(s): Nonstaff,Physician [REFERRING] - 1-2 days
--- NOTE | 2024-06-25 13:32 | P.PN ---
Subjective Progress Note Date: 06/25/24 The patient is a 69-year-old male who presented with symptoms of progressive dyspnea, diagnosed with pneumonia and influenza A, requiring mechanical ventilation. Cardiology consultation was requested because of atrial fibrillation. The patient is intubated and sedated. He has a history of atrial fibrillation, status post ablation in January 2024. He was in sinus mechanism on presentation and back in atrial fibrillation at this time with episode of rapid ventricle response. He is on vasopressors. He had an echocardiogram that showed a preserved systolic function, the study was technically difficult. The patient has been anticoagulated as an outpatient. Her chest x-ray shows severe infiltration bilaterally consistent with a pneumonia. Presentation he had evidence of acute renal injury and hypotension related to sepsis. He has been initiated on amiodarone and he is on vasopressin in addition to norepinephrine June 13: The patient remains intubated and sedated. He had episodes of paroxysmal atrial fibrillation. He is in sinus mechanism at this time. He continues to be on norepinephrine. His urine output is stable. His chest x-ray shows bilateral infiltrate consistent with his pneumonia. There is no evidence of ventricular ectopic activity.There is significant worsening of his renal function with a BUN up to 101 with a creatinine of 2.94. Tolerating tube feeding June 14: The patient remains intubated and sedated. He is in atrial fibrillation with controlled ventricular response. He is on the lower dose of norepinephrine. His urine output has been stable and he is tolerating tube feeding. He had no evidence of ventricular ectopic activity. He continues to have significant infiltrate on his chest x-ray. June 15: The patient remains intubated and sedated, he is on the lower PEEP. He continues to be in atrial fibrillation with controlled ventricular response. His urinary output has improved. There is no evidence of ventricular ectopic activity. His chest x-ray continues to show evidence of infiltrate bilaterally. Continues to be on IV heparin. He has worsening of his renal functions. June 16: The patient remains intubated and sedated on PEEP of 16. His dose of Levophed has been decreased. He continues to be on IV diuretics with good urine output. He is in atrial fibrillation with controlled ventricular response but no eviden ce of ventricular ectopic activity. His chest x-ray continues to show bilateral infiltrate. 06/17 patient seen and examined. Patient remains intubated and sedated. Per nursing has been able to be weaned somewhat on the norepinephrine. Still requiring 50% FiO2 with PEEP of 16. He is getting free water flushes through his OG tube. Good urine output with approximately 100 mL per hour. Creatinine mildly improving to 1.9 and BUN relatively stable. He remains in A. fib with heart rates 80s to 100s. hemoglobin downtrending to 8.3. Per nursing some bruising around his left subclavian central line. 06/18 Patient seen and examined. Patient remains intubated and sedated. Currently undergoing spontaneous breathing trial. Remains in A. fib with heart rates in the 90s to 100s. Creatinine mildly improving to 1.6 however significantly elevated BUN 131. Potassium originally 6.1 however improved to 5.1. He is receiving free water flushes through his G-tube with mild improvement in sodium to 150. Hemoglobin relatively stable at 8.2. Remains on a heparin drip. 06/19 Patient seen and examined. Patient remains intubated and sedated with rates of 34 and PEEP of 12 with FiO2 50%. Remains in A-fib with heart rates in the 90s to 100s. Creatinine improved to 1.4 and sodium improved to 144. CVP readings in the 15 range. 06/20 Patient seen and examined. Patient remains intubated and sedated. PEEP 10 FiO2 50%. BUN improved to 100 and creatinine 1.4. Remains in Afib. He was placed on low-dose norepinephrine and his metoprolol has intermittently been held however heart rates predominantly better controlled more recent in the last 6 hours more in the 70s to 80s.. 06/21 Patient seen and examined. Patient remains on ventilator. He had tracheostomy and PEG tube placement yesterday. No significant bleeding around his tracheostomy site. Weaning sedation and patient has therefore been more tachycardic in the 100-1 10 range. Creatinine mildly increased at 1.7. Has not been on any further vasopressors 06/22 Patient seen and examined. Patient had issues with his airway with his trach and despite changing out trach had difficulty maintaining airway. Therefore he had endotracheal tube placed. Remains in A-fib with heart rates in the 80s to 90s. He is still on amiodarone 400 mg twice a day. Off of any vasopressors. Remains on vent with FiO2 50% and a PEEP of 6 06/23 Patient seen and examined. Patient had tracheostomy revision today and endotracheal tube removed. Ventilating well. Heart rates in the 80s to 90s on the decreased dose of amiodarone. 06/24/2024 Patient is seen and examined at bedside this a.m. Patient underwent tracheostomy and PEG tube placement yesterday. He still on ventilator support, rate controlled atrial fibrillation. 06/25/2024 Patient is seen and examined bedside this a.m., rate controlled atrial fibrillation on telemetry, BP 130/56, tracheostomy in place, in process of being transferred to [facility]. Off sedation, 4.2 L of urine yesterday. PHYSICAL EXAMINATION: vitals reviewed, intubated and sedated LUNGS: Tracheostomy tube in place, on vent support, mild crackles audible. HEART: Irregular rate and rhythm, S1, S2. No S3. Systolic ejection murmur ABDOMEN: Soft, positive bowel sounds, no organomegaly EXTREMETIES: +1 edema IMPRESSION: 1. Acute respiratory failure with bilateral pneumonia and influenza A requiring mechanical ventilation 2. Paroxysmal atrial fibrillation status post ablation in 2023 3. Acute renal injury related to the sepsis and hypotension,, good urine output 4. Leukocytosis 5. Anemia 6. Septic shock on vasoperssors PLAN: Continue amiodarone 200 mg twice daily for next 1 week, thereafter from 06/28/2024, reduce it to 200 mg daily Continue Eliquis 5 mg twice daily, continue metoprolol Continue Lasix 40 mg IV twice daily At this time patient is stable from cardiovascular standpoint to be transferred to select specialty. Objective - Vital Signs Vital signs: Vital Signs Temp 98.4 F 06/25/24 08:00 Pulse 90 06/25/24 11:40 Resp 33 H 06/25/24 11:40 BP 160/91 06/25/24 11:00 Pulse Ox 93 L 06/25/24 11:00 FiO2 60 06/25/24 12:00 Intake & Output 06/24/24 06/25/24 06/25/24 18:59 06:59 18:59 Intake Total 2318.029 5475.249 830.329 Output Total 20191 903 Balance -392.467 -1256.751 -72.671 Weight 106.9 kg 105.8 kg 105.8 kg Intake: IV 256 169 152 .9 @ KVO 120 130 40 0.9 Nomal Saline Pressure 36 39 12 Bag Fluconazole in NaCl,Iso- 100 100 Osm 200 mg In Saline 1 100ml.bag @ 100 mls/hr IVPB DAILY JACQUES Rx#: [id number] Intake, IV Titration 31.533 120.249 58.329 Amount propofoL 1,000 mg In 31.533 120.249 58.329 Empty Bag 1 bag @ 15 MCG/ KG/MIN 8.981 mls/hr IV . Q11H9M JACQUES Rx#:[id number] Tube Feeding 540 715 220 Other 800 400 Output: Chest Tube Drainage 36 28 Left Anterior Chest 30 8 Right Anterior Chest 6 20 Urine 2020 2225 875 Other: Voiding Method Indwelling Catheter Indwelling Catheter Indwelling Catheter ABP, PAP, CO, CI - Last Documented Arterial Blood Pressure 130/54 - Labs CBC & Chem 7: 06/25/24 04:20 06/25/24 04:20 Labs: Abnormal Lab Results - Last 24 Hours (Table) 06/24/24 06/24/24 06/24/24 Range/Units 18:30 20:13 23:42 WBC (3.8-10.6) k/uL RBC (4.30-5.90) m/uL Hgb (13.0-17.5) gm/dL Hct (39.0-53.0) % RDW (11.5-15.5) % Neutrophils # (1.3-7.7) k/uL Lymphocytes # (1.0-4.8) k/uL ABG HCO3 (21-25) mmol/L ABG Total CO2 (19-24) mmol/L ABG O2 Saturation (94-97) % Hemoglobin (13.0-17.5) gm/dL BUN (9-20) mg/dL Creatinine (0.66-1.25) mg/dL Glucose (74-99) mg/dL POC Glucose (mg/dL) 136 H 135 H 141 H (70-110) mg/dL Calcium (8.4-10.2) mg/dL 06/25/24 06/25/24 06/25/24 Range/Units 04:20 04:20 05:03 WBC 13.7 H (3.8-10.6) k/uL RBC 2.93 L (4.30-5.90) m/uL Hgb 8.7 L (13.0-17.5) gm/dL Hct 27.7 L (39.0-53.0) % RDW 16.8 H (11.5-15.5) % Neutrophils # 12.9 H (1.3-7.7) k/uL Lymphocytes # 0.3 L (1.0-4.8) k/uL ABG HCO3 27 H (21-25) mmol/L ABG Total CO2 29 H (19-24) mmol/L ABG O2 Saturation 98.3 H (94-97) % Hemoglobin 8.8 L (13.0-17.5) gm/dL BUN 73 H (9-20) mg/dL Creatinine 1.38 H (0.66-1.25) mg/dL Glucose 145 H (74-99) mg/dL POC Glucose (mg/dL) (70-110) mg/dL Calcium 7.9 L (8.4-10.2) mg/dL 06/25/24 06/25/24 Range/Units 05:43 11:26 WBC (3.8-10.6) k/uL RBC (4.30-5.90) m/uL Hgb (13.0-17.5) gm/dL Hct (39.0-53.0) % RDW (11.5-15.5) % Neutrophils # (1.3-7.7) k/uL Lymphocytes # (1.0-4.8) k/uL ABG HCO3 (21-25) mmol/L ABG Total CO2 (19-24) mmol/L ABG O2 Saturation (94-97) % Hemoglobin (13.0-17.5) gm/dL BUN (9-20) mg/dL Creatinine (0.66-1.25) mg/dL Glucose (74-99) mg/dL POC Glucose (mg/dL) 159 H 164 H (70-110) mg/dL Calcium (8.4-10.2) mg/dL
[2024-06-25 17:22] LABS: Glucose,Whole Blood 180 mg/dL (70-110)
[2024-06-25 17:30] VITALS: BP 175/77; PULSE 106; RESP 29
--- NOTE | 2024-08-15 10:53 | P.OP ---
Date of Procedure: 06/20/24 Preoperative Diagnosis: Respiratory failure Postoperative Diagnosis: Respiratory failure Procedure(s) Performed: Tracheostomy Anesthesia: JAZMIN Surgeon: Terrance Huynh Estimated Blood Loss (ml): 5 Pathology: none sent Condition: stable Disposition: PACU Description of Procedure: The patient's placed on the bed in the supine position. The patient received general anesthesia. The neck was prepped and draped in usual sterile fashion. A standard transverse skin incision was made approximately 2 cm above the sternal notch. Using electrocautery the subcutaneous tissues were divided. The platysma was divided. A Wheatlander retractor was placed in the wound. Next the strap muscles were divided in the midline. Another weatlander retractor was placed the wound. The pretracheal fat was then divided with left cautery. The trachea was exposed. At this point the [employer]LYST advance the and the tracheal tube into the right mainstem bronchus. The balloon was inflated. A tracheotomy was then performed between the second and third tracheal rings. The perivascular tissues a gracilis the trachea. The endotracheal tube was brought back under direct vision. And then the #8 Portex tracheostomy tube was placed into the trachea. End-tidal CO2 was confirmed. The patient had been connected to the ventilator. The patient was ventilated satisfactory. The skin incision site was then closed with 3-0 nylon after the retractors were withdrawn. An umbilical tie was used to secure the tracheostomy tube.
== END 2024-06-25 18:07 | DRG 3 ==
LOC: EDBD → EC 13:47 → 2SICU 15:41 → MERGE 15:41 → 2SICU 16:03
PROVIDERS: ADMIT Student in an Organized Health Care Education/Training Program; ATTEND Student in an Organized Health Care Education/Training Program
PROC: 5A1955Z Respiratory Ventilation, Greater than 96 Consecutive Hours (ICD-10-PCS; 2024-06-10)
PROC: 0BH18EZ Insertion of Endotracheal Airway into Trachea, Via Natural or Artificial Opening Endoscopic (ICD-10-PCS; 2024-06-10)
PROC: 02HV33Z Insertion of Infusion Device into Superior Vena Cava, Percutaneous Approach (ICD-10-PCS; 2024-06-10)
PROC: 3E043XZ Introduction of Vasopressor into Central Vein, Percutaneous Approach (ICD-10-PCS; 2024-06-10)
PROC: 03HY32Z Insertion of Monitoring Device into Upper Artery, Percutaneous Approach (ICD-10-PCS; 2024-06-10)
PROC: 4A133B1 Monitoring of Arterial Pressure, Peripheral, Percutaneous Approach (ICD-10-PCS; 2024-06-10)
PROC: 4A133J1 Monitoring of Arterial Pulse, Peripheral, Percutaneous Approach (ICD-10-PCS; 2024-06-10)
PROC: 5A09357 Assistance with Respiratory Ventilation, Less than 24 Consecutive Hours, Continuous Positive Airway Pressure (ICD-10-PCS; 2024-06-10)
PROC: 0DH63UZ Insertion of Feeding Device into Stomach, Percutaneous Approach (ICD-10-PCS; 2024-06-20)
PROC: 3E0G76Z Introduction of Nutritional Substance into Upper GI, Via Natural or Artificial Opening (ICD-10-PCS; 2024-06-20)
PROC: 0B110Z4 Bypass Trachea to Cutaneous, Open Approach (ICD-10-PCS; 2024-06-20)
PROC: 0W9930Z Drainage of Right Pleural Cavity with Drainage Device, Percutaneous Approach (ICD-10-PCS; 2024-06-22)
PROC: 0BH18EZ Insertion of Endotracheal Airway into Trachea, Via Natural or Artificial Opening Endoscopic (ICD-10-PCS; 2024-06-22)
PROC: 0W9B30Z Drainage of Left Pleural Cavity with Drainage Device, Percutaneous Approach (ICD-10-PCS; 2024-06-22)
PROC: 0BW10FZ Revision of Tracheostomy Device in Trachea, Open Approach (ICD-10-PCS; principal; 2024-06-23 11:00)
PROC: 0W9B30Z Drainage of Left Pleural Cavity with Drainage Device, Percutaneous Approach (ICD-10-PCS; 2024-06-24)
DX: A40.3 Sepsis due to Streptococcus pneumoniae (principal); E43 Unspecified severe protein-calorie malnutrition; R65.21 Severe sepsis with septic shock; N17.0 Acute kidney failure with tubular necrosis; J96.01 Acute respiratory failure with hypoxia; J10.08 Influenza due to other identified influenza virus with other specified pneumonia; J13 Pneumonia due to Streptococcus pneumoniae; J10.01 Influenza due to other identified influenza virus with the same other identified influenza virus pneumonia; E87.4 Mixed disorder of acid-base balance; E87.0 Hyperosmolality and hypernatremia; D62 Acute posthemorrhagic anemia; J44.0 Chronic obstructive pulmonary disease with (acute) lower respiratory infection; E66.813 Obesity, class 3; I10 Essential (primary) hypertension; J95.03 Malfunction of tracheostomy stoma; I48.19 Other persistent atrial fibrillation; J93.83 Other pneumothorax; J93.82 Other air leak; T38.0X5A Adverse effect of glucocorticoids and synthetic analogues, initial encounter; R73.03 Prediabetes; R31.9 Hematuria, unspecified; K21.9 Gastro-esophageal reflux disease without esophagitis; D17.0 Benign lipomatous neoplasm of skin and subcutaneous tissue of head, face and neck; E87.5 Hyperkalemia; H91.90 Unspecified hearing loss, unspecified ear; N50.89 Other specified disorders of the male genital organs; T70.29XA Other effects of high altitude, initial encounter; Z68.33 Body mass index [BMI] 33.0-33.9, adult; Z87.891 Personal history of nicotine dependence; Z79.899 Other long term (current) drug therapy; Z79.1 Long term (current) use of non-steroidal anti-inflammatories (NSAID); Z79.01 Long term (current) use of anticoagulants
CPT/HCPCS: 31500; 36415; 36573; 36600; 43246; 70450; 71045; 72125; 76770; 80048; 80053; 80076; 80202; 81001; 82040; 82330; 82805; 83010; 83036; 83605; 83615; 83735; 84132; 84145; 84295; 85025; 85027; 85045; 85379; 85384; 85610; 85730; 87040; 87070; 87077; 87086; 87186; 87205; 87449; 87636; 93005; 93306; 94002; 94003; 94640; 94660; 96365; 96367; 96375; 99291